=== PATIENT | female | born 1950 | race Caucasian/White ===

== ENCOUNTER 2016-10-28 00:18 | Emergency (ER) | payer OTHER ==
[~2016-10-28] VITALS: Ht 157.5 cm; Wt 63.0 kg
[~2016-10-28 00:18] MED LIST: METO-551 PO
[2016-10-28 00:21] VITALS: TEMP 36.8; Ht 157.5 cm; Wt 63.0 kg
[2016-10-28 00:26] VITALS: O2SAT 99
[2016-10-28] MEDS ORDERED: METOPROLOL TARTRATE 1 MG/ML VIAL IV STA (00:36)
--- NOTE | 2016-10-28 00:41 | EMERGENCY ROOM VISIT NOTE ---
History Report prepared by Gosia: Gisela Ann Under the Supervision of: Dr. Faith Will D.O. First contact with patient: 00:25 Chief Complaint: RESPIRATORY PROBLEMS Stated Complaint: CHEST PRESSURE Nursing Triage Summary: Pt arrives by ALS from home for respiratory difficulty, pt states "where is the air going?". Associated cramping chest pain. Pt reports has been ongoing for months. also back and neck pressure History of Present Illness The patient is a 66 year old female who presents to the Emergency Room with complaints of intermittent shortness of breath beginning today. The patient states that it feels like someone is pulling down on her lungs and she can not get enough air. She complains of chest pressure, chronic but worsening abdominal pain, neck pressure, and back pressure. She reports that she is having difficulty eating and had milk for dinner. The patient states that she has a history of blood clots in her legs but is not on blood thinners anymore and only takes Lopressor for medication. She notes that she stayed home all day today. The patient reports that when she sits up she passes out and this has been happening for months. She denies any injury or increased anxiety. Source of History: patient Onset: today Position: other (global) Quality: other (SOB) Timing: intermittent Modifying Factors (Worsening): other (sitting up) Associated Symptoms: + abdominal pain, + back pain, + chest pain Note: She denies any injury. Review of Systems See HPI for pertinent positives & negatives. A total of 10 systems reviewed and were otherwise negative. 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 (3) Tonsillectomy Family History Cancer MOTHER (Colon ) Diabetes mellitus FATHER Endocrine disorder SISTER (Thyroid) FH: mental illness SISTER Heart disease FATHER MOTHER Stroke Social History Smoking Status: Current Every Day Smoker Alcohol Use: none Drug Use: none Marital Status: Housing Status: lives alone Occupation Status: disabled Current/Historical Medications Scheduled Metoprolol Tartrate (Metoprolol Tartrate), 50 MG PO BID Allergies Coded Allergies: Atropine (Verified Allergy, Severe, castillo, hard time breathing, 10/28/16) Diphenhydramine (Verified Allergy, Severe, "I ALMOST .", 10/28/16) Hyoscyamine (Verified Allergy, Severe, castillo, hard time breathing, 10/28/16) Labetalol (Verified Allergy, Severe, selling,loss of taste,itch, rash, ) Phenobarbital (Verified Allergy, Severe, castillo, hard time breathing, 10/28/16) Prednisone (Verified Allergy, Severe, Edema face,lips and tongue., 10/28/16 ) Meticorten Scopolamine (Verified Allergy, Severe, castillo, hard time breathing, 10/28/16) Dicyclomine (Verified Allergy, Intermediate, GI SYMPTOMS, 10/28/16) Enoxaparin (Verified Allergy, Intermediate, RASH, 10/28/16) Levofloxacin (Verified Allergy, Intermediate, ARM TURNED "FIREY RED" WHEN INFUSED, CLEARED IN A FEW HOURS, 10/28/16) Tramadol (Verified Allergy, Intermediate, blisters all over, 10/28/16) Warfarin (Verified Allergy, Intermediate, rash, 10/28/16) Chlorpromazine (Verified Allergy, Mild, TOLERATING PROLIXIN AT HOME , 10/28/16) Penicillins (Verified Allergy, Mild, 10/28/16) Coumarin (Verified Allergy, Unknown, UNKNOWN, 10/28/16) Naproxen (Verified Allergy, Unknown, Unknown, 10/28/16) Nitrofurantoin (Verified Allergy, Unknown, hallucinating, 10/28/16) Morphine (Verified Adverse Reaction, Severe, SHOCK;TOLERATES DEMEROL, 10/28) ABLE TO TAKE DEMEROL WITHOUT DIFFICULTY Aspirin (Verified Adverse Reaction, Intermediate, BLEEDING, 10/28/16) Codeine (Verified Adverse Reaction, Intermediate, BP DROPS AND PASSES OUT, 10/28/16) Replaces CODEINE PHOSP Ibuprofen (Verified Adverse Reaction, Intermediate, BLEEDING, 10/28/16) Amitriptyline (Verified Adverse Reaction, Mild, Nausea/vomitimg, 10/28/16) Lisinopril (Verified Adverse Reaction, Mild, COUGH, 10/28/16) Physical Exam Vital Signs Date Time Temp Pulse Resp B/P Pulse Ox O2 Delivery O2 Flow Rate FiO2 10/28/16 03:05 90 18 151/94 99 Room Air 10/28/16 02:25 85 18 143/91 99 Room Air 10/28/16 01:24 82 18 164/96 98 Room Air 10/28/16 01:07 90 217/125 10/28/16 00:27 99 Room Air 10/28/16 00:26 99 Room Air 10/28/16 00:25 94 10/28/16 00:21 36.8 94 23 229/138 99 Room Air 10/28/16 00:21 Room Air Physical Exam HEENT: Head - normocephalic and atraumatic Pupils are equal, round, and reactive to light. Extraocular eye muscles are intact, and sclera are anicteric. Nose - moist nasal mucosa without discharge. Mouth - moist buccal mucosa. Oropharynx is nonerythematous and there is no tonsillar exudate or edema noted. Neck: Supple; no JVD, nuchal rigidity, cervical lymphadenopathy. Heart: Regular rate and rhythm. There is a normal S1 and S2 with no murmurs, clicks, or gallops appreciated. Lungs: Clear to auscultation bilaterally with no wheezes, rales, or rhonchi. Abdomen: Soft, completely nontender, nondistended, with good bowel sounds. There are no palpable pulsatile masses or hepatosplenomegaly. There is no guarding, rigidity, or rebound noted. Extremities: No evidence of cyanosis, clubbing, or edema. There are easily palpable peripheral pulses. Skin: warm and dry with good turgor and no rashes. Medical Decision & Procedures Laboratory Results 10/28/16 01:00 Red Blood Count 5.12, Mean Corpuscular Volume 84.4, Mean Corpuscular Hemoglobin 29.9, Mean Corpuscular Hemoglobin Concent 35.4, Mean Platelet Volume 8.9, Neutrophils (%) (Auto) 54.6, Lymphocytes (%) (Auto) 36.3, Monocytes (%) (Auto) 6.6, Eosinophils (%) (Auto) 1.7, Basophils (%) (Auto) 0.6, Neutrophils # (Auto) 5.38, Lymphocytes # (Auto) 3.58, Monocytes # (Auto) 0.65, Eosinophils # (Auto) 0.17, Basophils # (Auto) 0.06 10/28/16 01:00 Test 10/28/16 01:00 White Blood Count 9.86 K/uL (4.8-10.8) Red Blood Count 5.12 M/uL (4.2-5.4) Hemoglobin 15.3 g/dL (12.0-16.0) Hematocrit 43.2 % (37-47) Mean Corpuscular Volume 84.4 fL (80-100) Mean Corpuscular Hemoglobin 29.9 pg (25-34) Mean Corpuscular Hemoglobin Concent 35.4 g/dl (32-36) Platelet Count 445 K/uL (130-400) Mean Platelet Volume 8.9 fL (7.4-10.4) Neutrophils (%) (Auto) 54.6 % Lymphocytes (%) (Auto) 36.3 % Monocytes (%) (Auto) 6.6 % Eosinophils (%) (Auto) 1.7 % Basophils (%) (Auto) 0.6 % Neutrophils # (Auto) 5.38 K/uL (1.4-6.5) Lymphocytes # (Auto) 3.58 K/uL (1.2-3.4) Monocytes # (Auto) 0.65 K/uL (0.11-0.59) Eosinophils # (Auto) 0.17 K/uL (0-0.5) Basophils # (Auto) 0.06 K/uL (0-0.2) RDW Standard Deviation 44.8 fL (36.4-46.3) RDW Coefficient of Variation 14.5 % (11.5-14.5) Immature Granulocyte % (Auto) 0.2 % Immature Granulocyte # (Auto) 0.02 K/uL (0.00-0.02) D-Dimer 460 ug/L FEU (0-500) Anion Gap 10.0 mmol/L (3-11) Est Creatinine Clear Calc Drug Dose 62.8 ml/min Estimated GFR () 91.7 Estimated GFR (Non- 79.1 BUN/Creatinine Ratio 6.7 (10-20) Calcium Level 9.6 mg/dl (8.5-10.1) Total Bilirubin 0.4 mg/dl (0.2-1) Direct Bilirubin < 0.1 mg/dl (0-0.2) Aspartate Amino Transf (AST/SGOT) 11 U/L (15-37) Alanine Aminotransferase (ALT/SGPT) 24 U/L (12-78) Alkaline Phosphatase 112 U/L (45-117) Total Creatine Kinase 90 U/L (26-192) Creatine Kinase MB 0.8 ng/ml (0.5-3.6) Creatine Kinase MB Ratio 0.9 (0-3.0) Troponin I < 0.015 ng/ml (0-0.045) Total Protein 8.5 gm/dl (6.4-8.2) Albumin 4.4 gm/dl (3.4-5.0) Lipase 362 U/L (73-393) Laboratory results per my review. Medications Administered Medications (Trade) Dose Ordered Sig/Thiago Route Start Time Stop Time Status Last Admin Dose Admin Metoprolol Tartrate (Lopressor Iv) 5 mg NOW STAT IV 10/28/16 00:36 10/28/16 00:39 DC 10/28/16 01:07 5 MG Procedure 0036: Lopressor IV 5mg IV. ECG Indication: chest pain Rate (beats per minute): 94 Rhythm: normal sinus Findings: no acute ischemic change, no ectopy ED Course 0025: Past medical records reviewed. The patient was evaluated in room B2. A complete history and physical exam was performed. A twelve-lead EKG was obtained as described above. 0036: Lopressor IV 5mg IV. 0218: I reevaluated the patient. The patient's son is at the bedside. Again, the patient tells me that she is old. She explained that maybe she needs to go to a intermediate because she is not able to do anything that she wants to do. She denies depression. 0314: Upon reevaluation, the patient is doing well. I discussed findings and results with the patient and her son. She verbalized agreement of the treatment plan. The patient was discharged home. Medical Decision This is a 66-year-old female patient who presents emergency Department stating that she can't get a full deep breath. Differential diagnoses include PE, depression, anxiety, pleurisy, pneumonia. LABS: Normal White Count Stable H&H D-Dimer 460 Normal LFT and Lipase Negative Cardiac Enzymes Glucose 100 Normal Renal Function I have seen this patient in the emergency department multiple times over the past 10 years. The patient appears better than I've ever seen her upon presentation to the emergency department. She is currently living with her son. The patient's oxygen saturation was 100%. She appears in no acute restaurant stress. Chest x-ray was unremarkable. I've asked the patient to follow-up with her PCP if the symptoms persist. Impression Primary Impression: Shortness of breath Scribe Attestation The scribe's documentation has been prepared under my direction and personally reviewed by me in its entirety. I confirm that the note above accurately reflects all work, treatment, procedures, and medical decision making performed by me. Departure Information Dispostion Home / Self-Care Referrals Maria Alejandra Gonzalez D.O. (PCP) Forms HOME CARE DOCUMENTATION FORM, IMPORTANT VISIT INFORMATION, WORK / SCHOOL INSTRUCTIONS Patient Instructions My [facility] Additional Instructions Follow up with your PCP if shortness of breath continues Return to the ER if symptoms worsen
[2016-10-28 01:08] LABS: HEMATOCRIT 43.2 % (37-47); MEAN CELL VOLUME 84.4 fL (80-100); MEAN CORPUSCULAR HEMOGLOBIN 29.9 pg (25-34); MEAN CORPUSCULAR HGB CONC 35.4 g/dl (32-36); MEAN PLATELET VOLUME 8.9 fL (7.4-10.4); PLATELET COUNT 445 K/uL (130-400); RED BLOOD COUNT 5.12 M/uL (4.2-5.4); WHITE BLOOD COUNT 9.86 K/uL (4.8-10.8)
[2016-10-28 01:25] LABS: ALT/SGPT 24 U/L (12-78); AST/SGOT 11 U/L (15-37); BLOOD UREA NITROGEN 5 mg/dl (7-18); BUN/CREATININE RATIO 6.7 (10-20); CALCIUM 9.6 mg/dl (8.5-10.1); CARBON DIOXIDE 23 mmol/L (21-32); CHLORIDE 106 mmol/L (98-107); CREATININE 0.79 mg/dl (0.60-1.20); GLUCOSE 100 mg/dl (70-99); POTASSIUM 3.8 mmol/L (3.5-5.1); SODIUM 139 mmol/L (136-145)
[2016-10-28 01:30] LABS: ALKALINE PHOSPHATASE 112 U/L (45-117); CKMB/CK RATIO 0.9 (0-3.0)
[2016-10-28 01:39] LABS: BASO % 0.6 %; BASO ABS # 0.06 K/uL (0-0.2); COMPLETE YES; EOS % 1.7 %; IG% 0.2 %; LYMPH % 36.3 %; LYMPH ABS # 3.58 K/uL (1.2-3.4); MONO % 6.6 %; NEUT % 54.6 %
[2016-10-28 03:05] VITALS: BP 151/94; PULSE 90; O2SAT 99
--- NOTE | 2016-10-28 08:30 | DIAGNOSTIC IMAGING REPORT ---
CHEST 2 VIEWS ROUTINE CLINICAL HISTORY: Shortness of breath. COMPARISON STUDY: Chest radiograph February 24, 2016. FINDINGS: 2 IVC filters are noted. Lung volumes are normal. No pneumothorax or pleural effusion is present. There is no evidence of pulmonary edema. Linear right lower lung opacity is suggestive of atelectasis. There is no consolidation. Cardiomediastinal silhouette is normal. IMPRESSION: No acute cardiopulmonary findings. Electronically signed by: Papa Nur M.D. 10/28/2016 8:29 AM Dictated Date/Time: 10/28/2016 8:28 AM
== END 2016-10-28 03:27 | disposition home or self-care (01) ==
LOC: EDBD 00:18 → C.EDB 00:19
DX: R06.02 Shortness of breath (principal); I10 Essential (primary) hypertension; F31.9 Bipolar disorder, unspecified; F41.9 Anxiety disorder, unspecified; F20.9 Schizophrenia, unspecified; K58.9 Irritable bowel syndrome, unspecified; F17.200 Nicotine dependence, unspecified, uncomplicated; Z86.718 Personal history of other venous thrombosis and embolism

== ENCOUNTER 2016-11-06 17:39 | Emergency (ER) | payer OTHER ==
[~2016-11-06] VITALS: Ht 157.5 cm; Wt 60.0 kg
[2016-11-06 17:51] VITALS: TEMP 36.9
[2016-11-06] MEDS ORDERED: LORAZEPAM 1 MG TAB SL STA (18:22)
[2016-11-06 19:01] LABS: BASO % 0.5 %; BASO ABS # 0.05 K/uL (0-0.2); COMPLETE YES; EOS % 1.2 %; IG% 0.1 %; LYMPH % 23.3 %; LYMPH ABS # 2.25 K/uL (1.2-3.4); MEAN CELL VOLUME 87.5 fL (80-100); MEAN CORPUSCULAR HEMOGLOBIN 30.6 pg (25-34); MEAN PLATELET VOLUME 9.5 fL (7.4-10.4); MONO % 8.2 %; NEUT % 66.7 %; PLATELET COUNT 425 K/uL (130-400); RED BLOOD COUNT 5.03 M/uL (4.2-5.4); WHITE BLOOD COUNT 9.64 K/uL (4.8-10.8)
[2016-11-06 19:13] VITALS: Ht 157.5 cm; Wt 60.0 kg
--- NOTE | 2016-11-06 19:46 | EMERGENCY ROOM VISIT NOTE ---
History First contact with patient: 18:12 Chief Complaint: MENTAL HEALTH EVALUATION Stated Complaint: CANT BREATHE History of Present Illness The patient is a 66 year old female who presents to the Emergency Room with complaints of anxiety. The patient reports she has been feeling short of breath for quite some time over months. She reports that the shortness of breath is hours there. She denies any chest pain. The patient reports she is stop taking all of her medications and has not taken medications in months. She was sent in by her friend who is concerned that the patient's anxiety was out of control. Upon arrival to emergency department the patient is readily cooperative. Review of Systems See HPI for pertinent positives & negatives. A total of 10 systems reviewed and were otherwise negative. Past Medical/Surgical History Medical Problems: (1) Alcohol abuse (2) Anxiety (3) Benign hypertension (4) Bipolar disorder (5) Chronic pelvic pain of female (6) Deep venous thrombosis (7) Drug abuse (8) IBS (9) IVC filter (10) Posttraumatic stress disorder (11) Schizoaffective disorder (12) Suicide attempt (13) Tobacco abuse (14) UGI bleed Surgical Problems: (1) Cystoscopy (2) h/o inferior vena cava filter placement (3) Tonsillectomy Family History Cancer MOTHER (Colon ) Diabetes mellitus FATHER Endocrine disorder SISTER (Thyroid) FH: mental illness SISTER Heart disease FATHER MOTHER Stroke Social History Smoking Status: Current Every Day Smoker Alcohol Use: none Drug Use: none Marital Status: Housing Status: lives alone Occupation Status: disabled Current/Historical Medications Scheduled Metoprolol Tartrate (Metoprolol Tartrate), 50 MG PO BID Allergies Coded Allergies: Atropine (Verified Allergy, Severe, castillo, hard time breathing, 11/06/16) Diphenhydramine (Verified Allergy, Severe, "I ALMOST .", 11/06/16) Hyoscyamine (Verified Allergy, Severe, castillo, hard time breathing, 11/06/16) Labetalol (Verified Allergy, Severe, selling,loss of taste,itch, rash, 11/06) Phenobarbital (Verified Allergy, Severe, castillo, hard time breathing, 11/06/16) Prednisone (Verified Allergy, Severe, Edema face,lips and tongue., 11/06/16) Meticorten Scopolamine (Verified Allergy, Severe, castillo, hard time breathing, 11/06/16) Dicyclomine (Verified Allergy, Intermediate, GI SYMPTOMS, 11/06/16) Enoxaparin (Verified Allergy, Intermediate, RASH, 11/06/16) Levofloxacin (Verified Allergy, Intermediate, ARM TURNED "FIREY RED" WHEN INFUSED, CLEARED IN A FEW HOURS, 11/06/16) Tramadol (Verified Allergy, Intermediate, blisters all over, 11/06/16) Warfarin (Verified Allergy, Intermediate, rash, 11/06/16) Chlorpromazine (Verified Allergy, Mild, TOLERATING PROLIXIN AT HOME , 11/06/16) Penicillins (Verified Allergy, Mild, 11/06/16) Coumarin (Verified Allergy, Unknown, UNKNOWN, 11/06/16) Naproxen (Verified Allergy, Unknown, Unknown, 11/06/16) Nitrofurantoin (Verified Allergy, Unknown, hallucinating, 11/06/16) Morphine (Verified Adverse Reaction, Severe, SHOCK;TOLERATES DEMEROL, ) ABLE TO TAKE DEMEROL WITHOUT DIFFICULTY Aspirin (Verified Adverse Reaction, Intermediate, BLEEDING, 11/06/16) Codeine (Verified Adverse Reaction, Intermediate, BP DROPS AND PASSES OUT, 11/06/16) Replaces CODEINE PHOSP Ibuprofen (Verified Adverse Reaction, Intermediate, BLEEDING, 11/06/16) Amitriptyline (Verified Adverse Reaction, Mild, Nausea/vomitimg, 11/06/16) Lisinopril (Verified Adverse Reaction, Mild, COUGH, 11/06/16) Physical Exam Vital Signs Date Time Temp Pulse Resp B/P Pulse Ox O2 Delivery O2 Flow Rate FiO2 11/06/16 20:24 82 16 176/93 97 Room Air 11/06/16 19:16 Room Air 11/06/16 19:13 82 16 172/97 96 Room Air 11/06/16 19:12 Room Air 11/06/16 18:07 98 11/06/16 17:51 36.9 103 20 181/91 98 Room Air Physical Exam GENERAL: Patient is a cacechtic female HEAD: Normocephalic atraumatic EYES: Ocular movements intact pupils equal and react to light OROPHARYNX mucous membranes are moist no exudates present no erythema or edema present NECK: Supple no nuchal rigidity CHEST: Good equal expansion LUNGS: Clear and equal to auscultation CARDIAC: Normal S1 and S2 ABDOMEN: Soft nontender no guarding BACK: No CVA tenderness EXTREMITIES: No pain upon palpation normal muscle strength in all groups no clubbing cyanosis or edema NEURO: Patient is following commands is answering questions appropriately. Alert and oriented x3 Cranial Nerves 2-12 grossly intact Medical Decision & Procedures Laboratory Results 11/06/16 18:52 Red Blood Count 5.03, Mean Corpuscular Volume 87.5, Mean Corpuscular Hemoglobin 30.6, Mean Corpuscular Hemoglobin Concent 35.0, Mean Platelet Volume 9.5, Neutrophils (%) (Auto) 66.7, Lymphocytes (%) (Auto) 23.3, Monocytes (%) (Auto) 8.2, Eosinophils (%) (Auto) 1.2, Basophils (%) (Auto) 0.5, Neutrophils # (Auto) 6.42, Lymphocytes # (Auto) 2.25, Monocytes # (Auto) 0.79, Eosinophils # (Auto) 0.12, Basophils # (Auto) 0.05 11/06/16 20:00 Test 11/06/16 18:52 11/06/16 19:26 11/06/16 19:38 11/06/16 19:43 White Blood Count 9.64 K/uL (4.8-10.8) Red Blood Count 5.03 M/uL (4.2-5.4) Hemoglobin 15.4 g/dL (12.0-16.0) Hematocrit 44.0 % (37-47) Mean Corpuscular Volume 87.5 fL (80-100) Mean Corpuscular Hemoglobin 30.6 pg (25-34) Mean Corpuscular Hemoglobin Concent 35.0 g/dl (32-36) Platelet Count 425 K/uL (130-400) Mean Platelet Volume 9.5 fL (7.4-10.4) Neutrophils (%) (Auto) 66.7 % Lymphocytes (%) (Auto) 23.3 % Monocytes (%) (Auto) 8.2 % Eosinophils (%) (Auto) 1.2 % Basophils (%) (Auto) 0.5 % Neutrophils # (Auto) 6.42 K/uL (1.4-6.5) Lymphocytes # (Auto) 2.25 K/uL (1.2-3.4) Monocytes # (Auto) 0.79 K/uL (0.11-0.59) Eosinophils # (Auto) 0.12 K/uL (0-0.5) Basophils # (Auto) 0.05 K/uL (0-0.2) RDW Standard Deviation 47.8 fL (36.4-46.3) RDW Coefficient of Variation 14.8 % (11.5-14.5) Immature Granulocyte % (Auto) 0.1 % Immature Granulocyte # (Auto) 0.01 K/uL (0.00-0.02) Ethyl Alcohol mg/dL < 3.0 mg/dl (0-3) Bedside Glucose 100 mg/dl (70-90) Creatine Kinase MB Ratio (0-3.0) Urine Color YELLOW Urine Appearance CLEAR (CLEAR) Urine pH 7.0 (4.5-7.5) Urine Specific [place] 1.005 (1.000-1.030) Urine Protein NEG (NEG) Urine Glucose (UA) NEG (NEG) Urine Ketones NEG (NEG) Urine Occult Blood NEG (NEG) Urine Nitrite NEG (NEG) Urine Bilirubin NEG (NEG) Urine Urobilinogen NEG (NEG) Urine Leukocyte Esterase NEG (NEG) Urine Opiates Screen NEG (NEG) Urine Methadone, Qualitative NEG (NEG) Urine Barbiturates NEG (NEG) Urine Phencyclidine (PCP) Level NEG (NEG) Ur Amphetamine/Methamphetamine NEG (NEG) MDMA (Ecstasy) Screen NEG (NEG) Urine Benzodiazepines Screen NEG (NEG) Urine Cocaine Metabolite NEG (NEG) Urine Marijuana (THC) NEG (NEG) Test 11/06/16 20:00 Anion Gap 10.0 mmol/L (3-11) Est Creatinine Clear Calc Drug Dose 53.5 ml/min Estimated GFR () 85.1 Estimated GFR (Non- 73.4 BUN/Creatinine Ratio 7.6 (10-20) Calcium Level 9.3 mg/dl (8.5-10.1) Direct Bilirubin 0.1 mg/dl (0-0.2) Aspartate Amino Transf (AST/SGOT) 12 U/L (15-37) Alanine Aminotransferase (ALT/SGPT) 35 U/L (12-78) Albumin 4.1 gm/dl (3.4-5.0) Medications Administered Medications (Trade) Dose Ordered Sig/Thiago Route Start Time Stop Time Status Last Admin Dose Admin Lorazepam (Ativan Tab) 1 mg NOW STAT SL 11/06/16 18:22 11/06/16 18:24 DC 11/06/16 19:15 1 MG ECG Indication: SOB/dyspnea Rate (beats per minute): 83 Rhythm: sinus rhythm Findings: no acute ischemic change, no ectopy Medical Decision This is a 66-year-old female who presents emergency department complaining of shortness of breath. The patient is not tachycardic here and denies any chest pain. My suspicion for PE is very low. Based on these findings. The patient does have a normal CBC normal renal profile normal liver profile. She was given Ativan for her shortness of breath the emergency department. Repeat examination revealed improvement patient's symptoms I do believe that the patient is medically clear. She was discussed with the liaison for 3 S. as well as case management. The patient alcohol level is normal. The patient was signed out to Dr. Thorpe at change shift pending mental health evaluation. Impression Primary Impression: Acute anxiety Departure Information Dispostion Still a Patient Referrals Maria Alejandra Gonzalez D.O. (PCP) Patient Instructions My [facility]
--- NOTE | 2016-11-06 19:49 | DIAGNOSTIC IMAGING REPORT ---
CHEST ONE VIEW PORTABLE CLINICAL HISTORY: Pt c/o SOB dyspnea COMPARISON STUDY: No previous studies for comparison. FINDINGS: The bones soft tissues and hemidiaphragms are normal. The cardiomediastinal silhouette is normal. The lungs are clear. The pulmonary vasculature is normal. Mild emphysematous change IMPRESSION: Mild emphysematous change. No acute process. Electronically signed by: Anuel Martinez M.D. 11/06/2016 7:48 PM Dictated Date/Time: 11/06/2016 7:47 PM
[2016-11-06 20:05] LABS: URINE APPEARANCE CLEAR (CLEAR); URINE BILIRUBIN NEG (NEG); URINE COLOR YELLOW; URINE NITRITE NEG (NEG); URINE SPECIFIC GRAVITY 1.005 (1.000-1.030); UROBILINOGEN NEG (NEG)
[2016-11-06 20:11] LABS: MANUAL MICROSCOPIC REQUIRED? NO; REVIEW REQ? NO
[2016-11-06 20:24] LABS: BENZODIAZEPINE, URINE NEG (NEG); COCAINE,URINE NEG (NEG); PHENCYCLIDINE, URINE NEG (NEG)
[2016-11-06 20:40] LABS: ALT/SGPT 35 U/L (12-78); AST/SGOT 12 U/L (15-37); BLOOD UREA NITROGEN 6 mg/dl (7-18); BUN/CREATININE RATIO 7.6 (10-20); CALCIUM 9.3 mg/dl (8.5-10.1); CARBON DIOXIDE 22 mmol/L (21-32); CHLORIDE 107 mmol/L (98-107); CREATININE 0.84 mg/dl (0.60-1.20); GLUCOSE 94 mg/dl (70-99); POTASSIUM 3.9 mmol/L (3.5-5.1); SODIUM 139 mmol/L (136-145)
[2016-11-06] MEDS ORDERED: LISINOPRIL/HCTZ 20/25MG TAB PO STA (20:43)
[2016-11-06 20:50] LABS: ALKALINE PHOSPHATASE 110 U/L (45-117); CKMB/CK RATIO 0.9 (0-3.0); THYROID STIMULATING HORMONE 0.745 uIu/ml (0.300-4.500)
[2016-11-06] MEDS ORDERED: RISP1TAB18 PO (23:04)
[2016-11-06] MEDS ORDERED: SODIUM CHLORIDE 0.9% 500ML 500 ML IV STA (23:09)
[2016-11-07 00:07] VITALS: BP 110/74; PULSE 86; O2SAT 95
--- NOTE | 2016-11-07 01:21 | EMERGENCY ROOM VISIT NOTE ---
ED Visit Note First contact with patient: 22:24 I received this patient signout the change of shift from Dr. Gonsales, pending mental health evaluation. The patient was felt stable for discharge after 3 S. evaluation. HALI Mills has recommended a short prescription for Risperdal. Patient was given 10, 1 mg tablets to be taken one each evening. Patient will have follow-up with her primary care physician as well as her therapist. The patient was running hypertensive throughout most of her stay in the ER. She was given lisinopril/HCTZ. The patient was noted to become hypotensive, likely secondary to the metoprolol she had taken prior to arrival and the blood pressure medication given in the ER. She was given 500 mL of IV normal saline solution. Patient tolerated a food tray and oral fluids. She was discharged in care of her son after her blood pressure improved. She will return to the ER for worsening of symptoms or any medical concerns. Please refer to Dr. Gonsales's notes for further details of the history, physical and visit.
== END 2016-11-07 00:26 | disposition home or self-care (01) ==
LOC: C.EDB 17:40 → C.EDA 11-07 00:26
DX: F41.9 Anxiety disorder, unspecified (principal); R06.00 Dyspnea, unspecified; F25.0 Schizoaffective disorder, bipolar type; I10 Essential (primary) hypertension; F17.210 Nicotine dependence, cigarettes, uncomplicated; Z79.899 Other long term (current) drug therapy

== ENCOUNTER 2016-11-07 18:53 | Emergency (ER) | payer OTHER ==
[~2016-11-07 18:53] MED LIST changes: -METO-551 PO; +RISP1TAB18 PO
[2016-11-07 19:17] VITALS: TEMP 36.7; Ht 157.5 cm
[2016-11-07 21:12] VITALS: O2SAT 96
[2016-11-07] MEDS ORDERED: MECLIZINE HCL 25 MG TAB PO STA (21:42)
[2016-11-07] MEDS ORDERED: SODIUM CHLORIDE 0.9% 1000ML 2,000 ML IV STA (21:42)
--- NOTE | 2016-11-07 22:04 | DIAGNOSTIC IMAGING REPORT ---
CT OF THE HEAD WITHOUT CONTRAST CLINICAL HISTORY: Weakness. COMPARISON STUDY: Head CT April 18, 2015. CT DOSE: 537.48 mGy.cm TECHNIQUE: Helical axial images of the head were obtained without IV contrast. Automated exposure control was utilized for the study. FINDINGS: No acute intracranial hemorrhage, midline shift or mass effect is present. Ventricular system is stable. There is a cavum septum pellucidum. Basilar cisterns are patent. There are no extra-axial collections. A hypodensity within the left basal ganglia is unchanged and could reflect a prominent perivascular space or old lacunar infarct. There are no findings to suggest acute dural sinus thrombosis or acute territorial infarct. There are no significant calvarial abnormalities. Visualized portions of the sinuses and mastoid air cells are clear. IMPRESSION: No acute intracranial findings. Electronically signed by: Papa Nur M.D. 11/07/2016 10:02 PM Dictated Date/Time: 11/07/2016 10:00 PM
[2016-11-07 22:06] LABS: BASO % 0.6 %; BASO ABS # 0.05 K/uL (0-0.2); COMPLETE YES; EOS % 2.2 %; HEMATOCRIT 41.9 % (37-47); IG% 0.1 %; LYMPH % 39.5 %; LYMPH ABS # 3.48 K/uL (1.2-3.4); MEAN CORPUSCULAR HEMOGLOBIN 29.4 pg (25-34); MEAN CORPUSCULAR HGB CONC 34.1 g/dl (32-36); MEAN PLATELET VOLUME 9.4 fL (7.4-10.4); MONO % 5.9 %; NEUT % 51.7 %; PLATELET COUNT 415 K/uL (130-400); RED BLOOD COUNT 4.87 M/uL (4.2-5.4)
[2016-11-07 22:10] LABS: ALT/SGPT 29 U/L (12-78); BLOOD UREA NITROGEN 9 mg/dl (7-18); BUN/CREATININE RATIO 9.5 (10-20); CALCIUM 9.5 mg/dl (8.5-10.1); CARBON DIOXIDE 24 mmol/L (21-32); CHLORIDE 106 mmol/L (98-107); CREATININE 0.91 mg/dl (0.60-1.20); GLUCOSE 117 mg/dl (70-99); POTASSIUM 3.6 mmol/L (3.5-5.1); SODIUM 139 mmol/L (136-145)
[2016-11-07 22:15] LABS: ALKALINE PHOSPHATASE 108 U/L (45-117); AST/SGOT 12 U/L (15-37)
--- NOTE | 2016-11-07 22:18 | DIAGNOSTIC IMAGING REPORT ---
CHEST ONE VIEW PORTABLE CLINICAL HISTORY: Weakness. COMPARISON STUDY: Chest radiograph November 06, 2016. FINDINGS: An IVC filter is incidentally noted. Lung volumes are normal. There is no consolidation to suggest pneumonia. Cardiac size is normal. Mediastinal contours are normal. There is no evidence of pulmonary edema. IMPRESSION: No acute cardiopulmonary findings. Electronically signed by: Papa Nur M.D. 11/07/2016 10:16 PM Dictated Date/Time: 11/07/2016 10:16 PM
[2016-11-07 23:59] VITALS: BP 118/70; PULSE 78; O2SAT 97
--- NOTE | 2016-11-08 01:29 | EMERGENCY ROOM VISIT NOTE ---
History Report prepared by Gosia: Mona Escalante Under the Supervision of: Vamshi AnnO. First contact with patient: 20:47 Chief Complaint: DIZZY Stated Complaint: ANXIETY, ABDOMINAL PAIN Nursing Triage Summary: patient states she feels dizzy and is off balance and feels "weird". also states it feels like she cant catch her breath sometimes. states she was here yesteday. History of Present Illness The patient is a 66 year old female who presents to the Emergency Room with complaints of worsening dizziness beginning [employer]. The patient states that she has been experiencing dizziness for the past 6-7 months but that it has been much worse lately. Sitting up exacerbates her symptoms, and laying on her left side also exacerbates her dizziness. She reports ringing in her right ear. The patient is also experiencing shortness of breath that is worse with lying flat. She state that evening just walking around her house causes her to feel lightheaded and pass out. She notes that she becomes very short of breath and lay down. Following this she will fall sleep/pass out. She notes chest pain that she describes as "laura" and "spasming." This pain is worse when she eats or swallows. Her chest pain is not worse with exertion. Her chest pain has been there for several months as well is her shortness of breath. She rates her current pain as a 2/10 in severity. She states that she has been experiencing this chest pain for months. The patient reports feeling generally weak all over. She denies urinary symptoms and any personal history of blood clots. The patient has a history of anxiety. She denies any HI or SI. She was seen in the ED on 10/28/16 and had a negative d-dimer and her work-up was otherwise unremarkable. She was seen again in the ED on 11/06/16 and discharged home. She takes a daily baby aspirin. 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 Review of Systems See HPI for pertinent positives & negatives. A total of 10 systems reviewed and were otherwise negative. 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 (3) Tonsillectomy Family History Cancer MOTHER (Colon ) Diabetes mellitus FATHER Endocrine disorder SISTER (Thyroid) FH: mental illness SISTER Heart disease FATHER MOTHER Stroke Social History Smoking Status: Current Every Day Smoker Alcohol Use: none Drug Use: none Marital Status: Housing Status: lives alone Occupation Status: disabled Current/Historical Medications Scheduled Metoprolol Tartrate (Metoprolol Tartrate), 50 MG PO BID Risperidone (Risperdal), 1 TAB PO HS Allergies Coded Allergies: Atropine (Verified Allergy, Severe, castillo, hard time breathing, 11/07/16) Diphenhydramine (Verified Allergy, Severe, "I ALMOST .", 11/07/16) Hyoscyamine (Verified Allergy, Severe, castillo, hard time breathing, 11/07/16) Labetalol (Verified Allergy, Severe, selling,loss of taste,itch, rash, 11/07) Phenobarbital (Verified Allergy, Severe, castillo, hard time breathing, 11/07/16) Prednisone (Verified Allergy, Severe, Edema face,lips and tongue., 11/07/16) Meticorten Scopolamine (Verified Allergy, Severe, castillo, hard time breathing, 11/07/16) Dicyclomine (Verified Allergy, Intermediate, GI SYMPTOMS, 11/07/16) Enoxaparin (Verified Allergy, Intermediate, RASH, 11/07/16) Levofloxacin (Verified Allergy, Intermediate, ARM TURNED "FIREY RED" WHEN INFUSED, CLEARED IN A FEW HOURS, 11/07/16) Tramadol (Verified Allergy, Intermediate, blisters all over, 11/07/16) Warfarin (Verified Allergy, Intermediate, rash, 11/07/16) Chlorpromazine (Verified Allergy, Mild, TOLERATING PROLIXIN AT HOME , 11/07/16) Penicillins (Verified Allergy, Mild, 11/07/16) Coumarin (Verified Allergy, Unknown, UNKNOWN, 11/07/16) Naproxen (Verified Allergy, Unknown, Unknown, 11/07/16) Nitrofurantoin (Verified Allergy, Unknown, hallucinating, 11/07/16) Morphine (Verified Adverse Reaction, Severe, SHOCK;TOLERATES DEMEROL, ) ABLE TO TAKE DEMEROL WITHOUT DIFFICULTY Aspirin (Verified Adverse Reaction, Intermediate, BLEEDING, 11/07/16) Codeine (Verified Adverse Reaction, Intermediate, BP DROPS AND PASSES OUT, 11/07/16) Replaces CODEINE PHOSP Ibuprofen (Verified Adverse Reaction, Intermediate, BLEEDING, 11/07/16) Amitriptyline (Verified Adverse Reaction, Mild, Nausea/vomitimg, 11/07/16) Lisinopril (Verified Adverse Reaction, Mild, COUGH, 11/07/16) Physical Exam Vital Signs Date Time Temp Pulse Resp B/P Pulse Ox O2 Delivery O2 Flow Rate FiO2 11/07/16 23:59 78 18 118/70 97 11/07/16 22:00 91 20 125/85 98 Room Air 11/07/16 21:26 110 20 91/64 98 Room Air 11/07/16 21:25 100 96/57 97 115/63 110 91/64 11/07/16 21:12 96 Room Air 11/07/16 21:12 96 Room Air 11/07/16 20:35 87 20 118/70 96 Room Air 11/07/16 20:30 111 11/07/16 19:17 36.7 97 20 139/73 97 Room Air Physical Exam GENERAL: alert, sitting up in bed, disheveled, chronically ill appearing, malnourished, no distress, non-toxic EYE EXAM: normal conjunctiva, PERRL and EOM's intact OROPHARYNX: no exudate, no erythema, lips, buccal mucosa, and tongue normal and mucous membranes are moist NECK: supple, no nuchal rigidity, no adenopathy, non-tender LUNGS: Clear to auscultation. Normal chest wall mechanics HEART: no murmurs, S1 normal and S2 normal ABDOMEN: abdomen soft, non-tender, normo-active bowel sounds, no masses, no rebound or guarding. BACK: Back is symmetrical on inspection and there is no deformity, no midline tenderness, no CVA tenderness. SKIN: no rashes and no bruising UPPER EXTREMITIES: upper extremities are grossly normal. LOWER EXTREMITIES: No pitting edema. NEURO EXAM: Normal sensorium, cranial nerves II-XII intact, normal speech, no weakness of arms, no weakness of legs. No drift. Finger to nose intact. Gross sensation intact. Medical Decision & Procedures ER Provider Diagnostic Interpretation: Radiology results as stated below per my review and the radiologist's interpretation: CT OF THE HEAD WITHOUT CONTRAST CLINICAL HISTORY: Weakness. COMPARISON STUDY: Head CT April 18, 2015. CT DOSE: 537.48 mGy.cm TECHNIQUE: Helical axial images of the head were obtained without IV contrast. Automated exposure control was utilized for the study. FINDINGS: No acute intracranial hemorrhage, midline shift or mass effect is present. Ventricular system is stable. There is a cavum septum pellucidum. Basilar cisterns are patent. There are no extra-axial collections. A hypodensity within the left basal ganglia is unchanged and could reflect a prominent perivascular space or old lacunar infarct. There are no findings to suggest acute dural sinus thrombosis or acute territorial infarct. There are no significant calvarial abnormalities. Visualized portions of the sinuses and mastoid air cells are clear. IMPRESSION: No acute intracranial findings. Electronically signed by: Papa Nur M.D. 11/07/2016 10:02 PM Dictated Date/Time: 11/07/2016 10:00 PM CHEST ONE VIEW PORTABLE CLINICAL HISTORY: Weakness. COMPARISON STUDY: Chest radiograph November 06, 2016. FINDINGS: An IVC filter is incidentally noted. Lung volumes are normal. There is no consolidation to suggest pneumonia. Cardiac size is normal. Mediastinal contours are normal. There is no evidence of pulmonary edema. IMPRESSION: No acute cardiopulmonary findings. Electronically signed by: Papa Nur M.D. 11/07/2016 10:16 PM Dictated Date/Time: 11/07/2016 10:16 PM Laboratory Results 11/07/16 21:43 Red Blood Count 4.87, Mean Corpuscular Volume 86.0, Mean Corpuscular Hemoglobin 29.4, Mean Corpuscular Hemoglobin Concent 34.1, Mean Platelet Volume 9.4, Neutrophils (%) (Auto) 51.7, Lymphocytes (%) (Auto) 39.5, Monocytes (%) (Auto) 5.9, Eosinophils (%) (Auto) 2.2, Basophils (%) (Auto) 0.6, Neutrophils # (Auto) 4.55, Lymphocytes # (Auto) 3.48, Monocytes # (Auto) 0.52, Eosinophils # (Auto) 0.19, Basophils # (Auto) 0.05 11/07/16 21:43 Test 11/07/16 21:23 11/07/16 21:43 Bedside Glucose 125 mg/dl (70-90) White Blood Count 8.80 K/uL (4.8-10.8) Red Blood Count 4.87 M/uL (4.2-5.4) Hemoglobin 14.3 g/dL (12.0-16.0) Hematocrit 41.9 % (37-47) Mean Corpuscular Volume 86.0 fL (80-100) Mean Corpuscular Hemoglobin 29.4 pg (25-34) Mean Corpuscular Hemoglobin Concent 34.1 g/dl (32-36) Platelet Count 415 K/uL (130-400) Mean Platelet Volume 9.4 fL (7.4-10.4) Neutrophils (%) (Auto) 51.7 % Lymphocytes (%) (Auto) 39.5 % Monocytes (%) (Auto) 5.9 % Eosinophils (%) (Auto) 2.2 % Basophils (%) (Auto) 0.6 % Neutrophils # (Auto) 4.55 K/uL (1.4-6.5) Lymphocytes # (Auto) 3.48 K/uL (1.2-3.4) Monocytes # (Auto) 0.52 K/uL (0.11-0.59) Eosinophils # (Auto) 0.19 K/uL (0-0.5) Basophils # (Auto) 0.05 K/uL (0-0.2) RDW Standard Deviation 47.5 fL (36.4-46.3) RDW Coefficient of Variation 14.9 % (11.5-14.5) Immature Granulocyte % (Auto) 0.1 % Immature Granulocyte # (Auto) 0.01 K/uL (0.00-0.02) D-Dimer 400 ug/L FEU (0-500) Anion Gap 9.0 mmol/L (3-11) Estimated GFR () 77.3 Estimated GFR (Non- 66.7 BUN/Creatinine Ratio 9.5 (10-20) Calcium Level 9.5 mg/dl (8.5-10.1) Total Bilirubin 0.4 mg/dl (0.2-1) Direct Bilirubin < 0.1 mg/dl (0-0.2) Aspartate Amino Transf (AST/SGOT) 12 U/L (15-37) Alanine Aminotransferase (ALT/SGPT) 29 U/L (12-78) Alkaline Phosphatase 108 U/L (45-117) Troponin I < 0.015 ng/ml (0-0.045) Total Protein 8.0 gm/dl (6.4-8.2) Albumin 4.1 gm/dl (3.4-5.0) Laboratory results per my review. Medications Administered Medications (Trade) Dose Ordered Sig/Thiago Route Start Time Stop Time Status Last Admin Dose Admin Sodium Chloride (Nss 1000ml) 2,000 ml @ 999 mls/hr Q2H1M STAT IV 11/07/16 21:42 11/07/16 23:42 DC 11/07/16 22:00 999 MLS/HR Meclizine HCl (Antivert Tab) 25 mg NOW STAT PO 11/07/16 21:42 11/07/16 21:44 DC 11/07/16 22:00 25 MG ECG Indication: SOB/dyspnea Rate (beats per minute): 102 Rhythm: sinus tachycardia Findings: left axis deviation, no ectopy ED Course ED COURSE: Vital signs were reviewed and showed normal vitals. The patients medical record was reviewed The above diagnostic studies were performed and reviewed. ED treatments and interventions as stated above. 2046: The patient was evaluated in room A12B. A complete history and physical examination was performed. 2141: Meclizine HCl 25 mg PO, NSS 2000 ml @ 999 mls/hr IV 2255: I reassessed the patient and she is doing well. She will have an ambulatory trial. 2322: The patient was in the bathroom at this time. 2346: Upon reevaluation, the patient is feeling better. She did well with her ambulatory trial. She is currently ambulating outside the room and requesting discharge. I discussed my findings with the patient and she understands and agrees with the treatment plan. Based on the patients age, coexisting illnesses, exam and lab findings the decision to treat as an outpatient was made. The patient remained stable while under my care. The patient appeared well at the time of discharge. Medical Decision Differential diagnoses includes but is not limited to pneumonia, bronchitis, COPD/Asthma exacerbation, pneumothorax, pulmonary embolism, congestive heart failure, acute coronary syndrome. Patient is a 66-year-old female who presents the ER with multiple complaints. She was seen here yesterday and evaluated by psychiatry and emergency Department. Following a complete evaluation she was discharged. She presents today for shortness of breath which has been worsening over the past year. She also admits to chest pain which has been present over the same time. The chest pain is only present after eating. Lastly she minutes to diffuse muscle spasms which has been worsening. She denies any homicidal or suicidal ideations. She is completely neurologically intact on exam. She is able to ambulate without difficulty. Vitals are stable. CT of the head was negative. EKG was unremarkable. Troponin was negative with chest pain that has been present for greater than 8 hours. Her d-dimer was negative as well. CBC along with BMP, LFTs and bilirubin was unremarkable. Chest x-ray was unremarkable. Patient was given a bolus normal saline. During her exam she was ambulating in the hallway and requesting to be discharged. Her blood work resulted in showed an unremarkable workup. I felt this was reasonable at this time. Discussed with Pt concerning signs and symptoms to watch out for. Pt was instructed to follow up with their PCP and discussed with the patient their option to return to the ED at anytime for persistent or worsening symptoms. The appropriate anticipatory guidance and out-patient management, including indications for return to the emergency department, were explained at length to the patient and understood. Impression Primary Impression: Shortness of breath Additional Impression: Dizziness Scribe Attestation The scribe's documentation has been prepared under my direction and personally reviewed by me in its entirety. I confirm that the note above accurately reflects all work, treatment, procedures, and medical decision making performed by me. Departure Information Dispostion Home / Self-Care Referrals Maria Alejandra Gonzalez D.O. (PCP) Forms HOME CARE DOCUMENTATION FORM, IMPORTANT VISIT INFORMATION Patient Instructions ED Dizziness [facility], ED Dyspnea Shortness of Breath, My [facility] Additional Instructions Please follow up with your primary care doctor with in the next 24 hours. Any worsening of your symptoms, please return to the ED immediately. This includes any new or worsening chest pain, shortness of breath, passing out, weakness or numbness in arms or legs, or any other concerning signs or symptoms from your standpoint. Please take your medications as prescribed. Please try to remain as hydrated as possible over the next 24-48 hours. Problem Qualifiers
== END 2016-11-08 | disposition home or self-care (01) ==
LOC: C.EDB 18:57 → C.EDA 11-08
DX: R42 Dizziness and giddiness (principal); R06.02 Shortness of breath; R00.0 Tachycardia, unspecified; I10 Essential (primary) hypertension; F31.9 Bipolar disorder, unspecified; F41.9 Anxiety disorder, unspecified; G89.29 Other chronic pain; F20.9 Schizophrenia, unspecified; F17.200 Nicotine dependence, unspecified, uncomplicated; Z86.718 Personal history of other venous thrombosis and embolism; Z98.890 Other specified postprocedural states; Z88.0 Allergy status to penicillin; Z88.5 Allergy status to narcotic agent; Z88.6 Allergy status to analgesic agent; Z88.8 Allergy status to other drugs, medicaments and biological substances; Z80.9 Family history of malignant neoplasm, unspecified; Z83.3 Family history of diabetes mellitus; Z82.49 Family history of ischemic heart disease and other diseases of the circulatory system; Z82.3 Family history of stroke; Z81.8 Family history of other mental and behavioral disorders

== ENCOUNTER 2016-11-12 17:48 | Emergency (ER) | payer OTHER ==
[~2016-11-12] VITALS: Ht 157.5 cm; Wt 57.8 kg
[2016-11-12 18:00] VITALS: TEMP 37; Ht 157.5 cm; Wt 57.8 kg
[2016-11-12] MEDS ORDERED: SODIUM CHLORIDE 0.9% 1000ML 1,000 ML IV STA (18:35)
--- NOTE | 2016-11-12 18:35 | EMERGENCY ROOM VISIT NOTE ---
History Report prepared by Gosia: Jalen Ellis Under the Supervision of: Dr. Harpreet Gonsales M.D. First contact with patient: 17:54 Chief Complaint: ABDOMINAL PAIN Stated Complaint: AB PAIN Nursing Triage Summary: Pt arrives to ER via ALS with reports of LLQ abdominal pain. Pt reports she is experiencing bleeding, EMS reports this is vaginal, not rectal. Pt states "the pain is hot, like menstrual cramps." Pt reports she was recently seen here for shortness of breath but did not report her abdominal symptoms, "they've been going on for several months." History of Present Illness The patient is a 66 year old female who presents to the Emergency Room via ALS with complaints of LLQ abdominal pain that began seven months ago. The last time the patient was in the ED, she was experiencing shortness of breath and did not tell the staff about this pain. She describes it as a "hot, cramping" pain. She rates her pain a 6/10 in severity. Her pain is radiating into her back. EMS reports that she is having some vaginal bleeding, not rectal bleeding. She has not seen an OBGYN for 7 years. The patient is not coughing or short of breath at this time. Source of History: patient, EMS Onset: a couple of months ago Position: abdomen (LLQ) Symptom Intensity: 6/10 Quality: cramping Timing: other (persistent) Associated Symptoms: No SOB, No cough Note: EMS reports some vaginal bleeding, no rectal bleeding. Review of Systems See HPI for pertinent positives & negatives. A total of 10 systems reviewed and were otherwise negative. 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 (3) Tonsillectomy Family History Cancer MOTHER (Colon ) Diabetes mellitus FATHER Endocrine disorder SISTER (Thyroid) FH: mental illness SISTER Heart disease FATHER MOTHER Stroke Social History Smoking Status: Current Every Day Smoker Alcohol Use: none Drug Use: none Marital Status: Housing Status: lives alone Occupation Status: disabled Current/Historical Medications Scheduled Metoprolol Tartrate (Metoprolol Tartrate), 50 MG PO BID Risperidone (Risperdal), 1 TAB PO HS Allergies Coded Allergies: Atropine (Verified Allergy, Severe, castillo, hard time breathing, 11/12/16) Diphenhydramine (Verified Allergy, Severe, "I ALMOST .", 11/12/16) Hyoscyamine (Verified Allergy, Severe, castillo, hard time breathing, 11/12/16) Labetalol (Verified Allergy, Severe, selling,loss of taste,itch, rash, 05/21) Phenobarbital (Verified Allergy, Severe, castillo, hard time breathing, 11/12/16) Prednisone (Verified Allergy, Severe, Edema face,lips and tongue., 11/12/16 ) Meticorten Scopolamine (Verified Allergy, Severe, castillo, hard time breathing, 11/12/16) Dicyclomine (Verified Allergy, Intermediate, GI SYMPTOMS, 11/12/16) Enoxaparin (Verified Allergy, Intermediate, RASH, 11/12/16) Levofloxacin (Verified Allergy, Intermediate, ARM TURNED "FIREY RED" WHEN INFUSED, CLEARED IN A FEW HOURS, 11/12/16) Tramadol (Verified Allergy, Intermediate, blisters all over, 11/12/16) Warfarin (Verified Allergy, Intermediate, rash, 11/12/16) Chlorpromazine (Verified Allergy, Mild, TOLERATING PROLIXIN AT HOME , 11/12/16) Penicillins (Verified Allergy, Mild, 11/12/16) Coumarin (Verified Allergy, Unknown, UNKNOWN, 11/12/16) Naproxen (Verified Allergy, Unknown, Unknown, 11/12/16) Nitrofurantoin (Verified Allergy, Unknown, hallucinating, 11/12/16) Morphine (Verified Adverse Reaction, Severe, SHOCK;TOLERATES DEMEROL, 11/12) ABLE TO TAKE DEMEROL WITHOUT DIFFICULTY Aspirin (Verified Adverse Reaction, Intermediate, BLEEDING, 11/12/16) Codeine (Verified Adverse Reaction, Intermediate, BP DROPS AND PASSES OUT, 11/12/16) Replaces CODEINE PHOSP Ibuprofen (Verified Adverse Reaction, Intermediate, BLEEDING, 11/12/16) Amitriptyline (Verified Adverse Reaction, Mild, Nausea/vomitimg, 11/12/16) Lisinopril (Verified Adverse Reaction, Mild, COUGH, 11/12/16) Physical Exam Vital Signs Date Time Temp Pulse Resp B/P Pulse Ox O2 Delivery O2 Flow Rate FiO2 11/12/16 21:40 84 20 178/101 95 Room Air 11/12/16 20:46 85 16 140/83 99 Room Air 11/12/16 19:32 98 23 138/85 11/12/16 18:00 37.0 116 20 161/88 96 Room Air 11/12/16 17:55 114 Physical Exam GENERAL: Patient is a healthy-appearing well-nourished HEAD: Normocephalic atraumatic EYES: Ocular movements intact pupils equal and react to light OROPHARYNX mucous membranes are moist no exudates present no erythema or edema present NECK: Supple no nuchal rigidity CHEST: Good equal expansion LUNGS: Clear and equal to auscultation CARDIAC: Normal S1 and S2 ABDOMEN: Soft nontender no guarding BACK: No CVA tenderness EXTREMITIES: No pain upon palpation normal muscle strength in all groups no clubbing cyanosis or edema NEURO: Patient is following commands is answering questions appropriately. Alert and oriented x3 Cranial Nerves 2-12 grossly intact Medical Decision & Procedures ER Provider Diagnostic Interpretation: Radiology results are stated below per my review and radiologist interpretation: EXAMINATION: PELVIC ULTRASOUND CLINICAL HISTORY: Pt c/o PELVIC PAIN COMPARISON STUDY: None FINDINGS: The uterus measured 6.0 cm. 3 small fibroids measuring up to 1.3 cm maximum dimension.. The endometrial stripe measured 2 mm. The right ovary measured not identified. The left ovary measured not identified. There was no evidence of pathologic free pelvic fluid. IMPRESSION: Several small uterine fibroids. Nonvisualization of the ovaries possibly secondary to atrophy. Otherwise negative study Electronically signed by: Anuel Martinez M.D. 11/12/2016 8:44 PM Dictated Date/Time: 11/12/2016 8:43 PM ABDOMEN 2VIEW W/PA CHEST RTN CLINICAL HISTORY: Pt c/o diffuse abd pain pain COMPARISON STUDY: 11/07/2016 FINDINGS: The soft tissues, psoas shadows, renal outlines and intestinal gas pattern appear normal. There is no evidence for bowel obstruction. There is no evidence for free intraperitoneal air. No abnormal abdominal calcifications are seen. A frontal view of the chest was performed and is unremarkable. Inferior vena caval filters are unchanged in location. IMPRESSION: No acute process of the chest or abdomen Electronically signed by: Anuel Martinez M.D. 11/12/2016 8:52 PM Dictated Date/Time: 11/12/2016 8:52 PM Laboratory Results 11/12/16 19:42 Red Blood Count 4.12, Mean Corpuscular Volume 88.1, Mean Corpuscular Hemoglobin 30.3, Mean Corpuscular Hemoglobin Concent 34.4, Mean Platelet Volume 9.2, Neutrophils (%) (Auto) 52.3, Lymphocytes (%) (Auto) 35.1, Monocytes (%) (Auto) 8.1, Eosinophils (%) (Auto) 3.6, Basophils (%) (Auto) 0.6, Neutrophils # (Auto) 4.11, Lymphocytes # (Auto) 2.76, Monocytes # (Auto) 0.64, Eosinophils # (Auto) 0.28, Basophils # (Auto) 0.05 11/12/16 19:42 Test 11/12/16 18:22 11/12/16 19:42 Urine Color YELLOW Urine Appearance CLEAR (CLEAR) Urine pH 7.0 (4.5-7.5) Urine Specific [place] 1.008 (1.000-1.030) Urine Protein NEG (NEG) Urine Glucose (UA) NEG (NEG) Urine Ketones NEG (NEG) Urine Occult Blood 2+ (NEG) Urine Nitrite NEG (NEG) Urine Bilirubin NEG (NEG) Urine Urobilinogen NEG (NEG) Urine Leukocyte Esterase NEG (NEG) Urine WBC (Auto) 1-5 /hpf (0-5) Urine RBC (Auto) 0-4 /hpf (0-4) Urine Hyaline Casts (Auto) 0 /lpf (0-5) Urine Epithelial Cells (Auto) 10-20 /lpf (0-5) Urine Bacteria (Auto) NEG (NEG) White Blood Count 7.86 K/uL (4.8-10.8) Red Blood Count 4.12 M/uL (4.2-5.4) Hemoglobin 12.5 g/dL (12.0-16.0) Hematocrit 36.3 % (37-47) Mean Corpuscular Volume 88.1 fL (80-100) Mean Corpuscular Hemoglobin 30.3 pg (25-34) Mean Corpuscular Hemoglobin Concent 34.4 g/dl (32-36) Platelet Count 401 K/uL (130-400) Mean Platelet Volume 9.2 fL (7.4-10.4) Neutrophils (%) (Auto) 52.3 % Lymphocytes (%) (Auto) 35.1 % Monocytes (%) (Auto) 8.1 % Eosinophils (%) (Auto) 3.6 % Basophils (%) (Auto) 0.6 % Neutrophils # (Auto) 4.11 K/uL (1.4-6.5) Lymphocytes # (Auto) 2.76 K/uL (1.2-3.4) Monocytes # (Auto) 0.64 K/uL (0.11-0.59) Eosinophils # (Auto) 0.28 K/uL (0-0.5) Basophils # (Auto) 0.05 K/uL (0-0.2) RDW Standard Deviation 50.1 fL (36.4-46.3) RDW Coefficient of Variation 15.5 % (11.5-14.5) Immature Granulocyte % (Auto) 0.3 % Immature Granulocyte # (Auto) 0.02 K/uL (0.00-0.02) Anion Gap 8.0 mmol/L (3-11) Est Creatinine Clear Calc Drug Dose 55.5 ml/min Estimated GFR () 89.0 Estimated GFR (Non- 76.8 BUN/Creatinine Ratio 14.9 (10-20) Calcium Level 9.2 mg/dl (8.5-10.1) Total Bilirubin 0.2 mg/dl (0.2-1) Direct Bilirubin < 0.1 mg/dl (0-0.2) Aspartate Amino Transf (AST/SGOT) 17 U/L (15-37) Alanine Aminotransferase (ALT/SGPT) 30 U/L (12-78) Alkaline Phosphatase 94 U/L (45-117) Total Protein 7.1 gm/dl (6.4-8.2) Albumin 3.6 gm/dl (3.4-5.0) Lipase 667 U/L (73-393) Labs reviewed by ED physician. Medications Administered Medications (Trade) Dose Ordered Sig/Thiago Route Start Time Stop Time Status Last Admin Dose Admin Sodium Chloride (Nss 1000ml) 1,000 ml @ 999 mls/hr Q1H1M STAT IV 11/12/16 18:35 11/12/16 19:35 DC 11/12/16 19:32 999 MLS/HR ED Course 1754: Past medical records reviewed. The patient was evaluated in room B9. A complete history and physical examination was performed. 1834: Ordered Sodium Chloride 1000 ml @ 999 mls/hr IV 2141: Upon reexamination the patient is resting. I discussed results and treatment plan with the patient. She verbalizes agreement and understanding. The patient is ready for discharge. Medical Decision Differential diagnosis: Etiologies such as appendicitis, diverticulitis, PUD, biliary pathology, UTI, pancreatitis, obstruction, mesenteric ischemia, aortic pathology, infections, inflammatory bowel disease, renal colic, as well as others were entertained. This is a 66 year female who presents emergency department complaining of abdominal cramping along with vaginal bleeding. I will note that the patient's hemoglobin is stable. The patient reports that the abdominal cramping in the vaginal bleeding have been ongoing for the past several months. Based on this finding I felt that the patient was well enough that she could be safely discharged home for follow-up with both gynecology as well as gastroenterology. The patient was given a fluid bolus in the emergency department. Patient was in agreement with the treatment plan. Impression Primary Impression: Abdominal cramping Scribe Attestation The scribe's documentation has been prepared under my direction and personally reviewed by me in its entirety. I confirm that the note above accurately reflects all work, treatment, procedures, and medical decision making performed by me. Departure Information Dispostion Home / Self-Care Referrals Maria Alejandra Gonzalez D.O. (PCP) Eleazar Rosa ., Nathaniel Garcia MD Forms HOME CARE DOCUMENTATION FORM, IMPORTANT VISIT INFORMATION, School Instructions, Work Instructions Patient Instructions Bleeding Uterine, ED Bleed Irregular Vaginal, My [facility] Additional Instructions Follow up with Dr Rosa's office (Head Char Filter Tank Tender) Follow up with DR Culver's office (GI) You have been examined and treated today on an emergency basis only. This is not a substitute for, or an effort to provide, complete comprehensive medical care. It is impossible to recognize and treat all injuries or illnesses in a single emergency department visit. It is therefore important that you follow up closely with DR Gonzalez. Call as soon as possible for an appointment. Thank you for your time and consideration. I look forward to speaking with you again soon. Please don't hesitate to call us if you have any questions.
[2016-11-12 19:04] LABS: URINE APPEARANCE CLEAR (CLEAR); URINE BILIRUBIN NEG (NEG); URINE COLOR YELLOW; URINE NITRITE NEG (NEG); URINE SPECIFIC GRAVITY 1.008 (1.000-1.030); UROBILINOGEN NEG (NEG)
[2016-11-12 19:12] LABS: MANUAL MICROSCOPIC REQUIRED? NO; REVIEW REQ? NO
[2016-11-12 19:54] LABS: BASO % 0.6 %; BASO ABS # 0.05 K/uL (0-0.2); COMPLETE YES; EOS % 3.6 %; HEMATOCRIT 36.3 % (37-47); IG% 0.3 %; LYMPH % 35.1 %; LYMPH ABS # 2.76 K/uL (1.2-3.4); MEAN CELL VOLUME 88.1 fL (80-100); MEAN CORPUSCULAR HEMOGLOBIN 30.3 pg (25-34); MEAN CORPUSCULAR HGB CONC 34.4 g/dl (32-36); MEAN PLATELET VOLUME 9.2 fL (7.4-10.4); MONO % 8.1 %; NEUT % 52.3 %; PLATELET COUNT 401 K/uL (130-400); RED BLOOD COUNT 4.12 M/uL (4.2-5.4); WHITE BLOOD COUNT 7.86 K/uL (4.8-10.8)
[2016-11-12 20:26] LABS: ALT/SGPT 30 U/L (12-78); AST/SGOT 17 U/L (15-37); BLOOD UREA NITROGEN 12 mg/dl (7-18); BUN/CREATININE RATIO 14.9 (10-20); CALCIUM 9.2 mg/dl (8.5-10.1); CARBON DIOXIDE 24 mmol/L (21-32); CHLORIDE 109 mmol/L (98-107); CREATININE 0.81 mg/dl (0.60-1.20); GLUCOSE 98 mg/dl (70-99); POTASSIUM 4.2 mmol/L (3.5-5.1); SODIUM 141 mmol/L (136-145)
[2016-11-12 20:28] LABS: ALKALINE PHOSPHATASE 94 U/L (45-117)
--- NOTE | 2016-11-12 20:46 | DIAGNOSTIC IMAGING REPORT ---
EXAMINATION: PELVIC ULTRASOUND CLINICAL HISTORY: Pt c/o PELVIC PAIN COMPARISON STUDY: None FINDINGS: The uterus measured 6.0 cm. 3 small fibroids measuring up to 1.3 cm maximum dimension.. The endometrial stripe measured 2 mm. The right ovary measured not identified. The left ovary measured not identified. There was no evidence of pathologic free pelvic fluid. IMPRESSION: Several small uterine fibroids. Nonvisualization of the ovaries possibly secondary to atrophy. Otherwise negative study Electronically signed by: Anuel Martinez M.D. 11/12/2016 8:44 PM Dictated Date/Time: 11/12/2016 8:43 PM
--- NOTE | 2016-11-12 20:54 | DIAGNOSTIC IMAGING REPORT ---
ABDOMEN 2VIEW W/PA CHEST RTN CLINICAL HISTORY: Pt c/o diffuse abd pain pain COMPARISON STUDY: 11/07/2016 FINDINGS: The soft tissues, psoas shadows, renal outlines and intestinal gas pattern appear normal. There is no evidence for bowel obstruction. There is no evidence for free intraperitoneal air. No abnormal abdominal calcifications are seen. A frontal view of the chest was performed and is unremarkable. Inferior vena caval filters are unchanged in location. IMPRESSION: No acute process of the chest or abdomen Electronically signed by: Anuel Martinez M.D. 11/12/2016 8:52 PM Dictated Date/Time: 11/12/2016 8:52 PM
[2016-11-12 22:38] VITALS: BP 186/100; PULSE 89; O2SAT 97
== END 2016-11-12 22:39 | disposition home or self-care (01) ==
LOC: EDBD 17:48 → C.EDB 17:49
DX: R10.32 Left lower quadrant pain (principal); N93.9 Abnormal uterine and vaginal bleeding, unspecified; I10 Essential (primary) hypertension; F31.9 Bipolar disorder, unspecified; F41.9 Anxiety disorder, unspecified; F20.9 Schizophrenia, unspecified; F17.200 Nicotine dependence, unspecified, uncomplicated; Z86.718 Personal history of other venous thrombosis and embolism; Z88.0 Allergy status to penicillin; Z88.5 Allergy status to narcotic agent; Z88.6 Allergy status to analgesic agent; Z88.8 Allergy status to other drugs, medicaments and biological substances; Z80.9 Family history of malignant neoplasm, unspecified; Z83.3 Family history of diabetes mellitus; Z82.0 Family history of epilepsy and other diseases of the nervous system; Z82.49 Family history of ischemic heart disease and other diseases of the circulatory system

== ENCOUNTER 2017-01-03 22:32 | Emergency (ER) | payer OTHER ==
[~2017-01-03] VITALS: Ht 157.5 cm; Wt 54.9 kg
[2017-01-03 22:36] VITALS: Ht 157.5 cm; Wt 54.9 kg
[2017-01-03] MEDS ORDERED: SODIUM CHLORIDE 0.9% 1000ML 1,000 ML IV ONE (23:15)
[2017-01-04 00:26] VITALS: TEMP 36.7
[2017-01-04 00:32] LABS: BASO % 0.6 %; BASO ABS # 0.05 K/uL (0-0.2); COMPLETE YES; EOS % 4.6 %; HEMATOCRIT 42.6 % (37-47); IG% 0.1 %; LYMPH % 38.4 %; LYMPH ABS # 3.45 K/uL (1.2-3.4); MEAN PLATELET VOLUME 9.6 fL (7.4-10.4); NEUT % 47.3 %; PLATELET COUNT 396 K/uL (130-400); RED BLOOD COUNT 4.84 M/uL (4.2-5.4); WHITE BLOOD COUNT 8.99 K/uL (4.8-10.8)
[2017-01-04] MEDS ORDERED: SOAP SUDS ENEMA PR ONE (00:45)
[2017-01-04 01:07] LABS: ALB/GLOB RATIO 1.1 (0.9-2); ALKALINE PHOSPHATASE 96 U/L (45-117); ALT/SGPT 20 U/L (12-78); BLOOD UREA NITROGEN 8 mg/dl (7-18); BUN/CREATININE RATIO 9.9 (10-20); CALCIUM 9.2 mg/dl (8.5-10.1); CARBON DIOXIDE 28 mmol/L (21-32); CHLORIDE 105 mmol/L (98-107); CREATININE 0.79 mg/dl (0.60-1.20); GLUCOSE 105 mg/dl (70-99); SODIUM 140 mmol/L (136-145)
[2017-01-04] MEDS ORDERED: MAGNESIUM CITRATE 296 ML/BTL PO ONE (02:00)
[2017-01-04] MEDS ORDERED: ONDANSETRON HOME PACK 4MG OD TAB PO ONE (02:00)
--- NOTE | 2017-01-04 02:00 | EMERGENCY ROOM VISIT NOTE ---
ED Visit Note First contact with patient: 22:55 Patient was seen with the physician sales support assistant. I agree with his workup and evaluation of the patient. Patient will be following up with her primary care physician and referred to GI. Problem List Medical Problems: (1) Alcohol abuse Status: Resolved (2) Anxiety Status: Chronic (3) Benign hypertension Status: Chronic (4) Bipolar disorder Status: Chronic (5) Chronic pelvic pain of female Status: Chronic (6) Deep venous thrombosis Status: Resolved (7) Drug abuse Status: Resolved (8) IBS Status: Chronic (9) IVC filter Status: Resolved (10) Posttraumatic stress disorder Status: Chronic (11) Schizoaffective disorder Status: Chronic (12) Suicide attempt Permanent Comment: acetaminophen OD Status: Resolved (13) Tobacco abuse Status: Chronic (14) UGI bleed Permanent Comment: M-W tear Status: Resolved Surgical Problems: (1) Cystoscopy Status: Resolved (2) h/o inferior vena cava filter placement Status: Chronic (3) Tonsillectomy Status: Resolved Current/Historical Medications Scheduled Metoprolol Tartrate (Metoprolol Tartrate), 50 MG PO BID Allergies Coded Allergies: Atropine (Verified Allergy, Severe, castillo, hard time breathing, 11/12/16) Diphenhydramine (Verified Allergy, Severe, "I ALMOST .", 11/12/16) Hyoscyamine (Verified Allergy, Severe, castillo, hard time breathing, 11/12/16) Labetalol (Verified Allergy, Severe, selling,loss of taste,itch, rash, 05/21) Phenobarbital (Verified Allergy, Severe, castillo, hard time breathing, 11/12/16) Prednisone (Verified Allergy, Severe, Edema face,lips and tongue., 11/12/16 ) Meticorten Scopolamine (Verified Allergy, Severe, castillo, hard time breathing, 11/12/16) Dicyclomine (Verified Allergy, Intermediate, GI SYMPTOMS, 11/12/16) Enoxaparin (Verified Allergy, Intermediate, RASH, 11/12/16) Levofloxacin (Verified Allergy, Intermediate, ARM TURNED "FIREY RED" WHEN INFUSED, CLEARED IN A FEW HOURS, 11/12/16) Tramadol (Verified Allergy, Intermediate, blisters all over, 11/12/16) Warfarin (Verified Allergy, Intermediate, rash, 11/12/16) Chlorpromazine (Verified Allergy, Mild, TOLERATING PROLIXIN AT HOME , 11/12/16) Penicillins (Verified Allergy, Mild, 11/12/16) Coumarin (Verified Allergy, Unknown, UNKNOWN, 11/12/16) Naproxen (Verified Allergy, Unknown, Unknown, 11/12/16) Nitrofurantoin (Verified Allergy, Unknown, hallucinating, 11/12/16) Morphine (Verified Adverse Reaction, Severe, SHOCK;TOLERATES DEMEROL, 11/12) ABLE TO TAKE DEMEROL WITHOUT DIFFICULTY Aspirin (Verified Adverse Reaction, Intermediate, BLEEDING, 11/12/16) Codeine (Verified Adverse Reaction, Intermediate, BP DROPS AND PASSES OUT, 11/12/16) Replaces CODEINE PHOSP Ibuprofen (Verified Adverse Reaction, Intermediate, BLEEDING, 11/12/16) Amitriptyline (Verified Adverse Reaction, Mild, Nausea/vomitimg, 11/12/16) Lisinopril (Verified Adverse Reaction, Mild, COUGH, 11/12/16) Vital Signs Date Time Temp Pulse Resp B/P (MAP) Pulse Ox O2 Delivery O2 Flow Rate FiO2 01/04/17 00:26 36.7 76 193/103 99 Room Air 01/03/17 22:36 36.7 110 18 227/119 100 Room Air Laboratory Results 01/04/17 00:11 Red Blood Count 4.84, Mean Corpuscular Volume 88.0, Mean Corpuscular Hemoglobin 30.0, Mean Corpuscular Hemoglobin Concent 34.0, Mean Platelet Volume 9.6, Neutrophils (%) (Auto) 47.3, Lymphocytes (%) (Auto) 38.4, Monocytes (%) (Auto) 9.0, Eosinophils (%) (Auto) 4.6, Basophils (%) (Auto) 0.6, Neutrophils # (Auto) 4.26, Lymphocytes # (Auto) 3.45, Monocytes # (Auto) 0.81, Eosinophils # (Auto) 0.41, Basophils # (Auto) 0.05 01/04/17 00:11 Test 01/04/17 00:11 White Blood Count 8.99 K/uL (4.8-10.8) Red Blood Count 4.84 M/uL (4.2-5.4) Hemoglobin 14.5 g/dL (12.0-16.0) Hematocrit 42.6 % (37-47) Mean Corpuscular Volume 88.0 fL (80-100) Mean Corpuscular Hemoglobin 30.0 pg (25-34) Mean Corpuscular Hemoglobin Concent 34.0 g/dl (32-36) Platelet Count 396 K/uL (130-400) Mean Platelet Volume 9.6 fL (7.4-10.4) Neutrophils (%) (Auto) 47.3 % Lymphocytes (%) (Auto) 38.4 % Monocytes (%) (Auto) 9.0 % Eosinophils (%) (Auto) 4.6 % Basophils (%) (Auto) 0.6 % Neutrophils # (Auto) 4.26 K/uL (1.4-6.5) Lymphocytes # (Auto) 3.45 K/uL (1.2-3.4) Monocytes # (Auto) 0.81 K/uL (0.11-0.59) Eosinophils # (Auto) 0.41 K/uL (0-0.5) Basophils # (Auto) 0.05 K/uL (0-0.2) RDW Standard Deviation 50.5 fL (36.4-46.3) RDW Coefficient of Variation 15.5 % (11.5-14.5) Immature Granulocyte % (Auto) 0.1 % Immature Granulocyte # (Auto) 0.01 K/uL (0.00-0.02) Anion Gap 7.0 mmol/L (3-11) Est Creatinine Clear Calc Drug Dose 56.9 ml/min Estimated GFR () 91.7 Estimated GFR (Non- 79.1 BUN/Creatinine Ratio 9.9 (10-20) Calcium Level 9.2 mg/dl (8.5-10.1) Total Bilirubin 0.4 mg/dl (0.2-1) Aspartate Amino Transf (AST/SGOT) U/L (15-37) Alanine Aminotransferase (ALT/SGPT) 20 U/L (12-78) Alkaline Phosphatase 96 U/L (45-117) Troponin I < 0.015 ng/ml (0-0.045) Total Protein 8.1 gm/dl (6.4-8.2) Albumin 4.3 gm/dl (3.4-5.0) Globulin 3.8 gm/dl (2.5-4.0) Albumin/Globulin Ratio 1.1 (0.9-2) Lipase 643 U/L (73-393) Medications Administered Medications (Trade) Dose Ordered Sig/Thiago Route Start Time Stop Time Status Last Admin Dose Admin Sodium Chloride 1,000 ml @ 999 mls/hr Q1H1M ONCE IV 01/03/17 23:15 01/04/17 00:15 DC 01/04/17 00:24 999 MLS/HR Miscellaneous (Soap Suds Enema) 1 ea NOW ONCE ME 01/04/17 00:45 01/04/17 00:46 DC 01/04/17 01:03 1 EA Departure Information Impression Primary Impression: Constipation Dispostion Home / Self-Care Condition GOOD Forms HOME CARE DOCUMENTATION FORM, IMPORTANT VISIT INFORMATION Patient Instructions My [facility] Additional Instructions You were seen and evaluated today on an emergency basis only. This is not a substitute for, or an effort to provide, complete comprehensive medical care. It is not possible to recognize and treat all injuries or illnesses in a single emergency department visit. For this reason it is recommended that you followup with your adult education instructor by telephone tomorrow to arrange appropriate follow-up. Your symptoms appear to be caused by constipation. We recommend that you use magnesium citrate at home. Drink one half of the bottle, wait one hour, then drink the other half. Be sure to drink plenty of fluids such as water or Gatorade while taking this medication. This medication will help cause a bowel movement within a few hours. Zofran (homepack) 1 tablet under the tongue every 6 hrs as needed for nausea. You are welcome to return to the emergency department anytime with new, worsening, or concerning symptoms.
[2017-01-04 02:11] VITALS: BP 194/120; PULSE 83; O2SAT 100
--- NOTE | 2017-01-04 05:17 | EMERGENCY ROOM VISIT NOTE ---
History First contact with patient: 22:55 Chief Complaint: REFERRED BY DOCTOR Stated Complaint: SOB,DIZZY,LIGHTHEADED,ABD PAIN,REFERRED BY PRIMARY History of Present Illness The patient is a 66 year old female who presents to the Emergency Room with several complaints. The patient states that she has not had a normal bowel movement in the past 2 weeks. She states this is causing her abdominal pain as well as lightheadedness, shortness of breath, and dizziness. She tried an enema at home without relief of her symptoms. The patient has not had fever or chills. She rates her discomfort a 10/10. She contacted her primary care physician who referred her to the emergency department 12 hours ago. Review of Systems More than 10 systems were reviewed and otherwise negative with the exception of history of present illness. Past Medical/Surgical History Medical Problems: (1) Alcohol abuse (2) Anxiety (3) Benign hypertension (4) Bipolar disorder (5) Chronic pelvic pain of female (6) Deep venous thrombosis (7) Drug abuse (8) IBS (9) IVC filter (10) Posttraumatic stress disorder (11) Schizoaffective disorder (12) Suicide attempt (13) Tobacco abuse (14) UGI bleed Surgical Problems: (1) Cystoscopy (2) h/o inferior vena cava filter placement (3) Tonsillectomy Family History Cancer MOTHER (Colon ) Diabetes mellitus FATHER Endocrine disorder SISTER (Thyroid) FH: mental illness SISTER Heart disease FATHER MOTHER Stroke Social History Smoking Status: Current Some Day Smoker Alcohol Use: none Drug Use: none Marital Status: Housing Status: lives alone Occupation Status: disabled Current/Historical Medications Scheduled Metoprolol Tartrate (Metoprolol Tartrate), 50 MG PO BID Allergies Coded Allergies: Atropine (Verified Allergy, Severe, castillo, hard time breathing, 11/12/16) Diphenhydramine (Verified Allergy, Severe, "I ALMOST .", 11/12/16) Hyoscyamine (Verified Allergy, Severe, castillo, hard time breathing, 11/12/16) Labetalol (Verified Allergy, Severe, selling,loss of taste,itch, rash, 05/21) Phenobarbital (Verified Allergy, Severe, castillo, hard time breathing, 11/12/16) Prednisone (Verified Allergy, Severe, Edema face,lips and tongue., 11/12/16 ) Meticorten Scopolamine (Verified Allergy, Severe, castillo, hard time breathing, 11/12/16) Dicyclomine (Verified Allergy, Intermediate, GI SYMPTOMS, 11/12/16) Enoxaparin (Verified Allergy, Intermediate, RASH, 11/12/16) Levofloxacin (Verified Allergy, Intermediate, ARM TURNED "FIREY RED" WHEN INFUSED, CLEARED IN A FEW HOURS, 11/12/16) Tramadol (Verified Allergy, Intermediate, blisters all over, 11/12/16) Warfarin (Verified Allergy, Intermediate, rash, 11/12/16) Chlorpromazine (Verified Allergy, Mild, TOLERATING PROLIXIN AT HOME , 11/12/16) Penicillins (Verified Allergy, Mild, 11/12/16) Coumarin (Verified Allergy, Unknown, UNKNOWN, 11/12/16) Naproxen (Verified Allergy, Unknown, Unknown, 11/12/16) Nitrofurantoin (Verified Allergy, Unknown, hallucinating, 11/12/16) Morphine (Verified Adverse Reaction, Severe, SHOCK;TOLERATES DEMEROL, 11/12) ABLE TO TAKE DEMEROL WITHOUT DIFFICULTY Aspirin (Verified Adverse Reaction, Intermediate, BLEEDING, 11/12/16) Codeine (Verified Adverse Reaction, Intermediate, BP DROPS AND PASSES OUT, 11/12/16) Replaces CODEINE PHOSP Ibuprofen (Verified Adverse Reaction, Intermediate, BLEEDING, 11/12/16) Amitriptyline (Verified Adverse Reaction, Mild, Nausea/vomitimg, 11/12/16) Lisinopril (Verified Adverse Reaction, Mild, COUGH, 11/12/16) Physical Exam Vital Signs Date Time Temp Pulse Resp B/P (MAP) Pulse Ox O2 Delivery O2 Flow Rate FiO2 01/04/17 02:11 83 194/120 100 01/04/17 00:26 36.7 76 193/103 99 Room Air 01/03/17 22:36 36.7 110 18 227/119 100 Room Air Pain Rating (0-10): 0 Physical Exam VITALS: Vitals are noted on the nurse's note and reviewed by myself. Vital signs stable. GENERAL: Well-developed, well-nourished, white female, who is in no acute distress and resting comfortably. Patient is cooperative with the examination. HEAD: Normocephalic atraumatic. HEART: Regular rate and rhythm without murmurs gallops or rubs. LUNGS: Clear to auscultation bilaterally without wheezes, rales or rhonchi. No retractions or accessory muscle use. ABDOMEN: Positive normal bowel sounds x 4. Soft with mild diffuse tenderness. No distinct point tenderness. No rebound or guarding. No CVA tenderness. MUSCULOSKELETAL: No muscle atrophy, erythema, or edema noted. Full range of motion without joint tenderness in all extremities. Medical Decision & Procedures Laboratory Results 01/04/17 00:11 Red Blood Count 4.84, Mean Corpuscular Volume 88.0, Mean Corpuscular Hemoglobin 30.0, Mean Corpuscular Hemoglobin Concent 34.0, Mean Platelet Volume 9.6, Neutrophils (%) (Auto) 47.3, Lymphocytes (%) (Auto) 38.4, Monocytes (%) (Auto) 9.0, Eosinophils (%) (Auto) 4.6, Basophils (%) (Auto) 0.6, Neutrophils # (Auto) 4.26, Lymphocytes # (Auto) 3.45, Monocytes # (Auto) 0.81, Eosinophils # (Auto) 0.41, Basophils # (Auto) 0.05 01/04/17 00:11 Test 01/04/17 00:11 White Blood Count 8.99 K/uL (4.8-10.8) Red Blood Count 4.84 M/uL (4.2-5.4) Hemoglobin 14.5 g/dL (12.0-16.0) Hematocrit 42.6 % (37-47) Mean Corpuscular Volume 88.0 fL (80-100) Mean Corpuscular Hemoglobin 30.0 pg (25-34) Mean Corpuscular Hemoglobin Concent 34.0 g/dl (32-36) Platelet Count 396 K/uL (130-400) Mean Platelet Volume 9.6 fL (7.4-10.4) Neutrophils (%) (Auto) 47.3 % Lymphocytes (%) (Auto) 38.4 % Monocytes (%) (Auto) 9.0 % Eosinophils (%) (Auto) 4.6 % Basophils (%) (Auto) 0.6 % Neutrophils # (Auto) 4.26 K/uL (1.4-6.5) Lymphocytes # (Auto) 3.45 K/uL (1.2-3.4) Monocytes # (Auto) 0.81 K/uL (0.11-0.59) Eosinophils # (Auto) 0.41 K/uL (0-0.5) Basophils # (Auto) 0.05 K/uL (0-0.2) RDW Standard Deviation 50.5 fL (36.4-46.3) RDW Coefficient of Variation 15.5 % (11.5-14.5) Immature Granulocyte % (Auto) 0.1 % Immature Granulocyte # (Auto) 0.01 K/uL (0.00-0.02) Anion Gap 7.0 mmol/L (3-11) Est Creatinine Clear Calc Drug Dose 56.9 ml/min Estimated GFR () 91.7 Estimated GFR (Non- 79.1 BUN/Creatinine Ratio 9.9 (10-20) Calcium Level 9.2 mg/dl (8.5-10.1) Total Bilirubin 0.4 mg/dl (0.2-1) Aspartate Amino Transf (AST/SGOT) U/L (15-37) Alanine Aminotransferase (ALT/SGPT) 20 U/L (12-78) Alkaline Phosphatase 96 U/L (45-117) Troponin I < 0.015 ng/ml (0-0.045) Total Protein 8.1 gm/dl (6.4-8.2) Albumin 4.3 gm/dl (3.4-5.0) Globulin 3.8 gm/dl (2.5-4.0) Albumin/Globulin Ratio 1.1 (0.9-2) Lipase 643 U/L (73-393) Medications Administered Medications (Trade) Dose Ordered Sig/Thiago Route Start Time Stop Time Status Last Admin Dose Admin Sodium Chloride 1,000 ml @ 999 mls/hr Q1H1M ONCE IV 01/03/17 23:15 01/04/17 00:15 DC 01/04/17 00:24 999 MLS/HR Miscellaneous (Soap Suds Enema) 1 ea NOW ONCE NE 01/04/17 00:45 01/04/17 00:46 DC 01/04/17 01:03 1 EA Magnesium Citrate (Citrate Of Magnesia Soln) 296 ml NOW ONCE PO 01/04/17 02:00 01/04/17 02:01 DC 01/04/17 02:04 296 ML Ondansetron HCl (ZOFRAN ODT 4MG Home Pack) 1 [facility] UD ONCE PO 01/04/17 02:00 01/04/17 02:01 DC 01/04/17 02:04 1 [facility] Course Physical exam and history were performed. Nursing notes and EMR were reviewed. Patient appears to have reports of constipation and abdominal pain. She reports no normal bowel movement the past 2 weeks. The patient is with no signs of an acute surgical abdomen on examination. She does not appear in acute distress. I discussed options of care with the patient. IV access was established and labs were obtained. Patient was hydrated with normal saline. Plain films of the abdomen and chest were performed. The patient's blood work is as above and was reviewed. She does not have a significantly elevated white blood cell count. There is no gross anemia, bandemia, or significant electrolyte imbalance. X-ray was reviewed by myself and my attending physician, and appears to show some increased stool in the ascending and transverse colon. Because of the patient's symptoms and reports that she has not had a bowel movement in 2 weeks, we discussed the utilization of an enema, and she agreed. A soapsuds enema was performed by staff, and the patient had minimal results. She did refuse additional fluids through the enema after a few 100 mL's of fluid , and this may have limited the effectiveness of the enema. The case was discussed with my attending physician, Dr. Christian, who also independently evaluated the patient. The patient does not appear to have an acute cardiopulmonary process. Her blood pressure is elevated, but this is likely from the procedure. She will need to follow with her PCP for this. Many of her symptoms seem to be related to her constipation. The patient will be given a bottle of magnesium citrate to use at home. The patient reports that she is nauseated when she takes this, I will also give her a home pack of Zofran. The patient does see gastroenterology, but states that she refuses to have a colonoscopy. This is likely the next most appropriate step for her, and I did discuss this with her. She is to follow with her PCP and gastroenterology. She was otherwise invited back to the ER with any new, worsening, or concerning symptoms. Of note, the patient remained in the hospital after her discharge. She was witnessed in the cafeteria eating food at 3am. She was overheard complaining about not being admitted tonight. She was not in any distress, and certainly does not appear to have an acute process that requires admission. The chart was completed utilizing [employer] Speech Voice Recognition Software. Grammatical errors, random word insertions, pronoun errors, and incomplete sentences are an occasional consequence of this system due to software limitations, ambient noise, and hardware issues. Any formal questions or concerns about the content, text, or information contained within the body of this dictation should be directly addressed to the provider for clarification. . Medical Decision Differential diagnosis: Etiologies such as Constipation, appendicitis, diverticulitis, PUD, biliary pathology, UTI, pancreatitis, obstruction, mesenteric ischemia, aortic pathology , infections, inflammatory bowel disease, renal colic, as well as others were entertained. Impression Primary Impression: Constipation Departure Information Dispostion Home / Self-Care Condition GOOD Forms HOME CARE DOCUMENTATION FORM, IMPORTANT VISIT INFORMATION Patient Instructions My [facility] Additional Instructions You were seen and evaluated today on an emergency basis only. This is not a substitute for, or an effort to provide, complete comprehensive medical care. It is not possible to recognize and treat all injuries or illnesses in a single emergency department visit. For this reason it is recommended that you followup with your press service reader by telephone tomorrow to arrange appropriate follow-up. Your symptoms appear to be caused by constipation. We recommend that you use magnesium citrate at home. Drink one half of the bottle, wait one hour, then drink the other half. Be sure to drink plenty of fluids such as water or Gatorade while taking this medication. This medication will help cause a bowel movement within a few hours. Zofran (homepack) 1 tablet under the tongue every 6 hrs as needed for nausea. You are welcome to return to the emergency department anytime with new, worsening, or concerning symptoms.
--- NOTE | 2017-01-04 06:36 | DIAGNOSTIC IMAGING REPORT ---
PA CHEST RADIOGRAPH AND UPRIGHT AND SUPINE AP RADIOGRAPHS OF THE ABDOMEN CLINICAL HISTORY: Abdominal pain and constipation. COMPARISON STUDY: Chest radiograph abdominal series November 12, 2016. FINDINGS: There is no pneumothorax or pleural effusion. Lungs are clear. Cardiac size is normal. Mediastinal contours are normal. There is no evidence of pulmonary edema. There is old left ninth rib fracture. There is no free air. 2 IVC filters are unchanged in position. There is a [id number] amount stool within the colon with no significant stool within the rectum. IMPRESSION: 1. No free air or evidence of bowel obstruction. 2. No acute cardiopulmonary findings. Electronically signed by: Papa Nur M.D. 01/04/2017 6:34 AM Dictated Date/Time: 01/04/2017 6:33 AM
== END 2017-01-04 02:12 | disposition home or self-care (01) ==
LOC: C.EDB 22:34 → C.EDA 01-04 02:12
DX: K59.00 Constipation, unspecified (principal); F41.9 Anxiety disorder, unspecified; I10 Essential (primary) hypertension; F31.9 Bipolar disorder, unspecified; Z86.718 Personal history of other venous thrombosis and embolism; R42 Dizziness and giddiness; K58.9 Irritable bowel syndrome, unspecified; F43.10 Post-traumatic stress disorder, unspecified; Z80.0 Family history of malignant neoplasm of digestive organs; Z83.3 Family history of diabetes mellitus; Z83.49 Family history of other endocrine, nutritional and metabolic diseases; Z81.8 Family history of other mental and behavioral disorders; Z82.3 Family history of stroke; F17.210 Nicotine dependence, cigarettes, uncomplicated; Z79.899 Other long term (current) drug therapy

== ENCOUNTER 2017-01-12 15:31 | Emergency (ER) | payer OTHER ==
[~2017-01-12] VITALS: Ht 157.5 cm; Wt 54.7 kg
[2017-01-12 15:35] VITALS: TEMP 37.2
[2017-01-12 16:04] VITALS: O2SAT 100
[2017-01-12] MEDS ORDERED: LEVALBUTEROL 1.25MG/3ML NEB INH STA (16:14)
[2017-01-12] MEDS ORDERED: CAL1CHW4 PO (16:16)
[2017-01-12] MEDS ORDERED: ULT50 PO (16:16)
[2017-01-12] MEDS ORDERED: MINEOIL PO (16:16)
[2017-01-12] MEDS ORDERED: LORA-741 PO (16:16)
[2017-01-12 16:21] VITALS: Ht 157.5 cm; Wt 54.7 kg
[2017-01-12] MEDS ORDERED: AMLODIPINE BESYLATE 5 MG TAB PO ONE (16:30)
[2017-01-12 16:39] VITALS: PULSE 85; O2SAT 98
[2017-01-12 16:50] LABS: BASO % 0.6 %; BASO ABS # 0.05 K/uL (0-0.2); COMPLETE YES; HEMATOCRIT 41.6 % (37-47); IG% 0.2 %; LYMPH % 36.3 %; LYMPH ABS # 3.22 K/uL (1.2-3.4); MEAN CORPUSCULAR HEMOGLOBIN 30.3 pg (25-34); MEAN CORPUSCULAR HGB CONC 34.9 g/dl (32-36); MEAN PLATELET VOLUME 9.1 fL (7.4-10.4); MONO % 6.7 %; NEUT % 56.2 %; PLATELET COUNT 476 K/uL (130-400); RED BLOOD COUNT 4.78 M/uL (4.2-5.4); WHITE BLOOD COUNT 8.86 K/uL (4.8-10.8)
--- NOTE | 2017-01-12 16:59 | DIAGNOSTIC IMAGING REPORT ---
CHEST ONE VIEW PORTABLE CLINICAL HISTORY: Shortness of breath. Respiratory distress. COMPARISON STUDY: Chest radiograph January 03, 2017. FINDINGS: 2 IVC filters are unchanged in position. There is no pneumothorax. Mild left basilar opacity suggests atelectasis. Cardiac size is normal. Mediastinal contours are normal. There is no evidence of pulmonary edema. IMPRESSION: 1. No acute findings. 2. Mild left basilar opacity suggestive of atelectasis. Electronically signed by: Papa Nur M.D. 01/12/2017 4:57 PM Dictated Date/Time: 01/12/2017 4:56 PM
[2017-01-12 17:16] LABS: ALT/SGPT 30 U/L (12-78); BLOOD UREA NITROGEN 6 mg/dl (7-18); CARBON DIOXIDE 22 mmol/L (21-32); CHLORIDE 108 mmol/L (98-107); CREATININE 0.88 mg/dl (0.60-1.20); GLUCOSE 89 mg/dl (70-99); SODIUM 139 mmol/L (136-145)
[2017-01-12 17:21] LABS: ALKALINE PHOSPHATASE 106 U/L (45-117)
[2017-01-12 18:10] LABS: URINE APPEARANCE CLEAR (CLEAR); URINE BILIRUBIN NEG (NEG); URINE COLOR YELLOW; URINE NITRITE NEG (NEG); URINE PH 6.5 (4.5-7.5); UROBILINOGEN NEG (NEG)
[2017-01-12 18:19] LABS: MANUAL MICROSCOPIC REQUIRED? NO; REVIEW REQ? NO
[2017-01-12 18:23] LABS: PARTIAL THROMBOPLASTIN RATIO 1.1; PROTHROMBIN TIME (PATIENT) 10.5 SECONDS (9.0-12.0)
[2017-01-12 18:25] LABS: POTASSIUM 3.7 mmol/L (3.5-5.1)
[2017-01-12] MEDS ORDERED: AMLO5TAB2 PO (19:10)
[2017-01-12 19:31] VITALS: PULSE 82; O2SAT 97
[2017-01-12] MEDS ORDERED: LORAZEPAM 0.5 MG TAB SL STA (19:31)
[2017-01-12 19:45] VITALS: BP 169/83
[2017-01-12] MEDS ORDERED: METO50TA17 PO (21:12)
--- NOTE | 2017-01-12 23:14 | EMERGENCY ROOM VISIT NOTE ---
History Report prepared by Gosia: Lizeth Prado Under the Supervision of: Dr. Bonifacio Bee M.D. First contact with patient: 16:07 Chief Complaint: SHORTNESS OF BREATH Stated Complaint: SOB Nursing Triage Summary: Patient complaining of exacerbation of her COPD today while she was shopping. Patient SOB. Pulse ox 98% room air. Sitting in chair at this time. History of Present Illness The patient is a 66 year old female who presents to the Emergency Room with complaints of shortness of breath beginning today prior to arrival. The patient reports that she was shopping earlier today and did not feel well. Her breathing was off since this morning. She did not take any medication today for her symptoms, but did take medication for her hypertension. She has been unable to get an appointment with her family doctor for her hypertension. She also reports having the chills, and breaking out in hives 1 week ago. Additionally, the patient has had constipation, but this is chronic. The patient states that she tried an inhaler two years ago for her breathing problems, but that it exacerbated her symptoms. She has no history of COPD, pneumonia, or asthma. Pt denies LOC, headache, fevers, visual changes, neck pain, chest pain, nausea, vomiting, new abdominal pain, back pain, melena, hematochezia, numbness, weakness, lymphadenopathy, new rash, or other complaints. Source of History: patient Onset: today prior to arrival Position: chest Quality: other (shortness of breath) Timing: other (sudden) Review of Systems See HPI for pertinent positives and negatives. A total of ten systems were reviewed and were otherwise negative. 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 (3) Tonsillectomy Family History Cancer MOTHER (Colon ) Diabetes mellitus FATHER Endocrine disorder SISTER (Thyroid) FH: mental illness SISTER Heart disease FATHER MOTHER Stroke Social History Smoking Status: Current Every Day Smoker Alcohol Use: none Drug Use: none Marital Status: Housing Status: lives alone Occupation Status: disabled Current/Historical Medications Scheduled Amlodipine Besylate (Norvasc), 5 MG PO DAILY Mj Carb & Mag Hydrox-Simeth (Rolaids Advanced 1000-200-40 mg), 1 TAB PO PRN Lorazepam (Ativan), 0.5 MG PO PRN UD Metoprolol Tartrate (Metoprolol Tartrate), 50 MG PO [id number] Mineral Oil (Mineral Oil), 15 ML PO DAILY Tramadol HCl (Tramadol HCl), 50 MG PO PRN UD Allergies Coded Allergies: Atropine (Verified Allergy, Severe, castillo, hard time breathing, 11/12/16) Diphenhydramine (Verified Allergy, Severe, "I ALMOST .", 11/12/16) Hyoscyamine (Verified Allergy, Severe, castillo, hard time breathing, 11/12/16) Labetalol (Verified Allergy, Severe, selling,loss of taste,itch, rash, 05/21) Phenobarbital (Verified Allergy, Severe, castillo, hard time breathing, 11/12/16) Prednisone (Verified Allergy, Severe, Edema face,lips and tongue., 11/12/16 ) Meticorten Scopolamine (Verified Allergy, Severe, castillo, hard time breathing, 11/12/16) Dicyclomine (Verified Allergy, Intermediate, GI SYMPTOMS, 11/12/16) Enoxaparin (Verified Allergy, Intermediate, RASH, 11/12/16) Levofloxacin (Verified Allergy, Intermediate, ARM TURNED "FIREY RED" WHEN INFUSED, CLEARED IN A FEW HOURS, 11/12/16) Tramadol (Verified Allergy, Intermediate, blisters all over, 11/12/16) Warfarin (Verified Allergy, Intermediate, rash, 11/12/16) Chlorpromazine (Verified Allergy, Mild, TOLERATING PROLIXIN AT HOME , 11/12/16) Penicillins (Verified Allergy, Mild, 11/12/16) Coumarin (Verified Allergy, Unknown, UNKNOWN, 11/12/16) Naproxen (Verified Allergy, Unknown, Unknown, 11/12/16) Nitrofurantoin (Verified Allergy, Unknown, hallucinating, 11/12/16) Morphine (Verified Adverse Reaction, Severe, SHOCK;TOLERATES DEMEROL, 11/12) ABLE TO TAKE DEMEROL WITHOUT DIFFICULTY Aspirin (Verified Adverse Reaction, Intermediate, BLEEDING, 11/12/16) Codeine (Verified Adverse Reaction, Intermediate, BP DROPS AND PASSES OUT, 11/12/16) Replaces CODEINE PHOSP Ibuprofen (Verified Adverse Reaction, Intermediate, BLEEDING, 11/12/16) Amitriptyline (Verified Adverse Reaction, Mild, Nausea/vomitimg, 11/12/16) Lisinopril (Verified Adverse Reaction, Mild, COUGH, 11/12/16) Physical Exam Vital Signs Date Time Temp Pulse Resp B/P (MAP) Pulse Ox O2 Delivery O2 Flow Rate FiO2 01/12/17 19:45 169/83 01/12/17 19:31 82 20 223/108 97 Room Air 01/12/17 18:40 79 14 186/87 99 Room Air 01/12/17 17:54 98 Room Air 01/12/17 17:46 79 18 189/86 100 Room Air 74 174/85 79 167/94 01/12/17 16:50 78 01/12/17 16:39 85 16 98 Room Air 01/12/17 16:04 86 22 166/127 100 Room Air 01/12/17 16:04 100 Room Air 01/12/17 15:57 98 Room Air 01/12/17 15:35 37.2 94 20 195/99 98 Room Air Physical Exam GENERAL: Awake, alert, depressed appearing. HENT: Normocephalic, atraumatic. Oropharynx unremarkable. EYES: Normal conjunctiva. Sclera non-icteric. NECK: Supple. No nuchal rigidity. FROM. No JVD. RESPIRATORY: Clear to auscultation. CARDIAC: Regular rate, normal rhythm. Extremities warm and well perfused. Pulses equal. ABDOMEN: Soft, non-distended. No tenderness to palpation. No rebound or guarding. No masses. RECTAL: Deferred. MUSCULOSKELETAL: Chest examination reveals no tenderness. The back is symmetrical on inspection without obvious abnormality. There is no CVA tenderness to palpation. No joint edema. LOWER EXTREMITIES: Calves are equal size bilaterally and non-tender. No edema. No discoloration. NEURO: Normal sensorium. No sensory or motor deficits noted. SKIN: No rash or jaundice noted. Medical Decision & Procedures ER Provider Diagnostic Interpretation: X-ray: Per my interpretation, radiologist review. CHEST ONE VIEW PORTABLE CLINICAL HISTORY: Shortness of breath. Respiratory distress. COMPARISON STUDY: Chest radiograph January 03, 2017. FINDINGS: 2 IVC filters are unchanged in position. There is no pneumothorax. Mild left basilar opacity suggests atelectasis. Cardiac size is normal. Mediastinal contours are normal. There is no evidence of pulmonary edema. IMPRESSION: 1. No acute findings. 2. Mild left basilar opacity suggestive of atelectasis. Electronically signed by: Papa Nur M.D. 01/12/2017 4:57 PM Dictated Date/Time: 01/12/2017 4:56 PM Laboratory Results 01/12/17 16:40 Red Blood Count 4.78, Mean Corpuscular Volume 87.0, Mean Corpuscular Hemoglobin 30.3, Mean Corpuscular Hemoglobin Concent 34.9, Mean Platelet Volume 9.1, Neutrophils (%) (Auto) 56.2, Lymphocytes (%) (Auto) 36.3, Monocytes (%) (Auto) 6.7, Eosinophils (%) (Auto) 0.0, Basophils (%) (Auto) 0.6, Neutrophils # (Auto) 4.98, Lymphocytes # (Auto) 3.22, Monocytes # (Auto) 0.59, Eosinophils # (Auto) 0.00, Basophils # (Auto) 0.05 01/12/17 16:40 01/12/17 18:08 Test 01/12/17 16:40 01/12/17 17:51 01/12/17 18:08 White Blood Count 8.86 K/uL (4.8-10.8) Red Blood Count 4.78 M/uL (4.2-5.4) Hemoglobin 14.5 g/dL (12.0-16.0) Hematocrit 41.6 % (37-47) Mean Corpuscular Volume 87.0 fL (80-100) Mean Corpuscular Hemoglobin 30.3 pg (25-34) Mean Corpuscular Hemoglobin Concent 34.9 g/dl (32-36) Platelet Count 476 K/uL (130-400) Mean Platelet Volume 9.1 fL (7.4-10.4) Neutrophils (%) (Auto) 56.2 % Lymphocytes (%) (Auto) 36.3 % Monocytes (%) (Auto) 6.7 % Eosinophils (%) (Auto) 0.0 % Basophils (%) (Auto) 0.6 % Neutrophils # (Auto) 4.98 K/uL (1.4-6.5) Lymphocytes # (Auto) 3.22 K/uL (1.2-3.4) Monocytes # (Auto) 0.59 K/uL (0.11-0.59) Eosinophils # (Auto) 0.00 K/uL (0-0.5) Basophils # (Auto) 0.05 K/uL (0-0.2) RDW Standard Deviation 49.9 fL (36.4-46.3) RDW Coefficient of Variation 15.5 % (11.5-14.5) Immature Granulocyte % (Auto) 0.2 % Immature Granulocyte # (Auto) 0.02 K/uL (0.00-0.02) Anion Gap 9.0 mmol/L (3-11) Est Creatinine Clear Calc Drug Dose 51.1 ml/min Estimated GFR () 80.5 Estimated GFR (Non- 69.4 BUN/Creatinine Ratio 7.0 (10-20) Calcium Level 9.0 mg/dl (8.5-10.1) Total Bilirubin 0.5 mg/dl (0.2-1) Alanine Aminotransferase (ALT/SGPT) 30 U/L (12-78) Alkaline Phosphatase 106 U/L (45-117) Creatine Kinase MB 0.9 ng/ml (0.5-3.6) Creatine Kinase MB Ratio (0-3.0) Troponin I < 0.015 ng/ml (0-0.045) Pro-B-Type Natriuretic Peptide 128 pg/ml (0-900) Total Protein 8.2 gm/dl (6.4-8.2) Albumin 4.1 gm/dl (3.4-5.0) Globulin 4.1 gm/dl (2.5-4.0) Albumin/Globulin Ratio 1.0 (0.9-2) Urine Color YELLOW Urine Appearance CLEAR (CLEAR) Urine pH 6.5 (4.5-7.5) Urine Specific [place] 1.010 (1.000-1.030) Urine Protein NEG (NEG) Urine Glucose (UA) NEG (NEG) Urine Ketones NEG (NEG) Urine Occult Blood NEG (NEG) Urine Nitrite NEG (NEG) Urine Bilirubin NEG (NEG) Urine Urobilinogen NEG (NEG) Urine Leukocyte Esterase NEG (NEG) Prothrombin Time 10.5 SECONDS (9.0-12.0) Prothromb Time International Ratio 1.0 (0.9-1.1) Activated Partial Thromboplast Time 27.9 SECONDS (21.0-31.0) Partial Thromboplastin Ratio 1.1 Aspartate Amino Transf (AST/SGOT) 12 U/L (15-37) Total Creatine Kinase 76 U/L (26-192) Laboratory results reviewed by me Medications Administered Medications (Trade) Dose Ordered Sig/Thiago Route Start Time Stop Time Status Last Admin Dose Admin Levalbuterol (Xopenex 1.25MG/ 3ML Neb) 1.25 mg NOW STAT INH 01/12/17 16:14 01/12/17 16:18 DC 01/12/17 16:38 1.25 MG Amlodipine Besylate (Norvasc Tab) 5 mg NOW ONCE PO 01/12/17 16:30 01/12/17 16:32 DC 01/12/17 17:21 5 MG Lorazepam (Ativan Tab) 0.5 mg NOW STAT SL 01/12/17 19:31 01/12/17 19:32 DC 01/12/17 19:37 0.5 MG ECG Indication: SOB/dyspnea Rate (beats per minute): 74 Rhythm: normal sinus Findings: no acute ischemic change, no ectopy ED Course 160: The patient was evaluated in room B12B. A complete history and physical exam was performed. 161: Ordered Levalbuterol 1.25 mg INH. 1630: Ordered Norvasc Tab 5 mg PO. 172: I checked on the patient, and she is stable. 1814: I checked on the patient and she is feeling somewhat better. She still feels as if "her head wasn't quite attached to her body." Her blood pressure has improved, and she does not appear to be having any ill effects form her Norvasc. 1899: I checked on the patient and she is resting comfortably. Her blood pressure is high but she will follow up with her PCP on Saturday. 1930: Ordered Ativan Tab 0.5 mg SL. 1931: The patient is anxious but she is doing okay. 2024: I reevaluated the patient. Discussed results and discharge instructions: She verbalized understanding and agreement. The patient is ready for discharge. Medical Decision Triage Nursing notes reviewed. The patient's presentation and history were concerning for breathing difficulties. Etiologies such as pneumonia, COPD, reactive airway disease, CHF, cardiac ischemia, pulmonary embolism, pneumothorax, musculoskeletal, infections, gastrointestinal, as well as others were entertained. The patient is well known to the ER. She has a history of hypertension and medication issues. She states she is only taking Lopressor currently. She was given a xopenex treatment. The patient and I discussed antihypertensives and elected to try Norvasc 5mg as she stated clonidine was not effective for her any longer. The patient was reassessed and was doing better. Her blood pressure was improving. She was more relaxed and calm. She felt like she is breathing easier. She had unremarkable laboratory testing. Her chest x-ray and ECG were unremarkable as well. The patient did not have any adverse effects to the Norvasc. Allergic reactions were noted. I discussed continuing this as an outpatient and following up closely in the office. The patient agreed. She was trying to get in touch with her son for a ride home. She was unable to and then had a significant panic attack because she was afraid she would be left in the emergency department without a ride home. Her blood pressure increased. The patient was reassessed. I did give her 0.5 mg of sublingual Ativan. She was able to calm down and felt much better. Her hypertension dramatically improved. She was observed. She did well. She felt more comfortable and was stable for discharge. I did stress multiple times about the need for follow-up. The patient will be given a prescription for the Norvasc for the month so that she has time to get in to see her primary physician. The patient declined a MDI as she has had these in the past without any success. If she worsens in any way she will be back. Return instructions were outlined and she was discharged in stable condition.I gave my usual and customary discussion regarding this issue. Medication Reconciliation: I attest that I have personally reviewed the patient' s current medication list Blood pressure screening: Patient was found to have an elevated blood pressure and was referred to their primary doctor for recheck and further treatment. Impression Primary Impression: High blood pressure Additional Impressions: Shortness of breath Anxiety Scribe Attestation The scribe's documentation has been prepared under my direction and personally reviewed by me in its entirety. I confirm that the note above accurately reflects all work, treatment, procedures, and medical decision making performed by me. Departure Information Dispostion Home / Self-Care Prescriptions Amlodipine Besylate (NORVASC) 5 Mg Tab 5 MG PO DAILY for 30 Days, #30 TAB Prov: Bonifacio Bee MD 01/12/17 Referrals Maria Alejandra Gonzalez D.O. (PCP) Forms HOME CARE DOCUMENTATION FORM, IMPORTANT VISIT INFORMATION Patient Instructions My [facility] Additional Instructions Continue current medications. Start Norvasc (amlodipine) 5 mg. Take this once daily for blood pressure control. Review the package insert for all your medications. This is necessary as important health information is provided for your benefit and current care. Return to the ER for worsening lightheadedness, chest pain, difficulty breathing , fevers, vomiting, worsening of your condition, or as needed. Call your family doctor on Saturday for a follow-up appointment and blood pressure check. Additional medication management will be necessary by the primary office. Problem Qualifiers
== END 2017-01-12 19:58 | disposition home or self-care (01) ==
LOC: C.EDB 15:32
DX: I10 Essential (primary) hypertension (principal); R06.02 Shortness of breath; F41.9 Anxiety disorder, unspecified; F31.9 Bipolar disorder, unspecified; F20.9 Schizophrenia, unspecified; F17.200 Nicotine dependence, unspecified, uncomplicated; Z79.899 Other long term (current) drug therapy; Z88.0 Allergy status to penicillin; Z88.5 Allergy status to narcotic agent; Z88.6 Allergy status to analgesic agent; Z88.8 Allergy status to other drugs, medicaments and biological substances; Z80.9 Family history of malignant neoplasm, unspecified; Z83.3 Family history of diabetes mellitus; Z81.8 Family history of other mental and behavioral disorders; Z82.49 Family history of ischemic heart disease and other diseases of the circulatory system; Z82.3 Family history of stroke

== ENCOUNTER 2017-04-14 20:18 | Emergency (ER) | payer OTHER ==
[~2017-04-14] VITALS: Ht 157.5 cm; Wt 56.1 kg
[~2017-04-14 20:18] MED LIST changes: +CAL1CHW4 PO; +LORA-741 PO; +METO50TA17 PO; +MINEOIL PO; -RISP1TAB18 PO; +ULT50 PO
[2017-04-14 20:36] VITALS: TEMP 37.2; Ht 157.5 cm; Wt 56.1 kg
--- NOTE | 2017-04-14 22:01 | DIAGNOSTIC IMAGING REPORT ---
CHEST ONE VIEW PORTABLE CLINICAL HISTORY: EVALUATE ALTERED MENTAL STATUS/WEAKNESS dyspnea COMPARISON STUDY: 01/12/2017 FINDINGS: Slight chronic interstitial change left lung base. Lungs otherwise appear clear. No evidence for cardiac enlargement. Diaphragms smooth. IMPRESSION: Chronic change. No acute process. The above report was generated using voice recognition software. It may contain grammatical, syntax or spelling errors. Electronically signed by: Anuel Martinez M.D. 04/14/2017 10:00 PM Dictated Date/Time: 04/14/2017 10:00 PM
[2017-04-14] MEDS ORDERED: HydrALAZINE HCL 20 MG/ML VIAL IV. STA (22:09)
[2017-04-14] MEDS ORDERED: LORAZEPAM 2 MG/ML 1 ML VIAL IV STA (22:11)
[2017-04-14 22:51] LABS: BASO % 0.6 %; BASO ABS # 0.05 K/uL (0-0.2); COMPLETE YES; EOS % 3.7 %; HEMATOCRIT 42.5 % (37-47); IG% 0.2 %; LYMPH % 35.4 %; LYMPH ABS # 3.19 K/uL (1.2-3.4); MEAN CELL VOLUME 87.6 fL (80-100); MEAN CORPUSCULAR HEMOGLOBIN 30.5 pg (25-34); MEAN CORPUSCULAR HGB CONC 34.8 g/dl (32-36); MONO % 6.3 %; NEUT % 53.8 %; PLATELET COUNT 424 K/uL (130-400); RED BLOOD COUNT 4.85 M/uL (4.2-5.4); WHITE BLOOD COUNT 9.02 K/uL (4.8-10.8)
[2017-04-14 22:58] VITALS: O2SAT 99
[2017-04-14 23:00] LABS: PROTHROMBIN TIME (PATIENT) 10.4 SECONDS (9.0-12.0)
[2017-04-14 23:11] LABS: ALT/SGPT 33 U/L (12-78); AST/SGOT 16 U/L (15-37); BLOOD UREA NITROGEN 9 mg/dl (7-18); BUN/CREATININE RATIO 13.2 (10-20); CALCIUM 9.8 mg/dl (8.5-10.1); CARBON DIOXIDE 23 mmol/L (21-32); CHLORIDE 105 mmol/L (98-107); CREATININE 0.69 mg/dl (0.60-1.20); GLUCOSE 97 mg/dl (70-99); MAGNESIUM 2.1 mg/dl (1.8-2.4); POTASSIUM 3.8 mmol/L (3.5-5.1); SODIUM 136 mmol/L (136-145)
[2017-04-14 23:21] LABS: ALKALINE PHOSPHATASE 112 U/L (45-117); CKMB/CK RATIO 1.5 (0-3.0)
--- NOTE | 2017-04-14 23:51 | EMERGENCY ROOM VISIT NOTE ---
History Report prepared by Reynaldoibtammi: Elizabeth Marcos Under the Supervision of: Dr. Harpreet Sam D.O. First contact with patient: 21:41 Chief Complaint: HYPERTENSION Stated Complaint: HIGH BP, PAIN IN AB AREA,SON WORRIED-MENTAL HEALTH History of Present Illness The patient is a 66 year old female who presents to the Emergency Room with complaints of persistent hypertension. She complains of pain around her chest and back area as well as shortness of breath which she states is contributing to her hypertension. She reports she is also terrified of waking up and "not breathing". She states "I have been having things happen around me that I can't help react too". During these episodes she can "feel her blood pressure shoot up " and feels like her head "is going to explode". The patient has a history of hypertension and states she has been taking her blood pressure medicine as prescribed. She is accompanied by her son, who told Nursing staff he believes her issues are due to her history of manic depression and schizoaffective disorder. 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 A total of 10 systems reviewed and were otherwise negative. 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 (3) Tonsillectomy Family History Cancer MOTHER (Colon ) Diabetes mellitus FATHER Endocrine disorder SISTER (Thyroid) FH: mental illness SISTER Heart disease FATHER MOTHER Stroke Social History Smoking Status: Current Every Day Smoker Alcohol Use: none Drug Use: none Marital Status: Housing Status: lives alone Occupation Status: disabled Current/Historical Medications Scheduled Metoprolol Tartrate (Metoprolol Tartrate), 50 MG PO BID Mineral Oil (Mineral Oil), 15 ML PO DAILY Scheduled PRN Lorazepam (Ativan), 0.5 MG PO UD PRN for Anxiety Tramadol HCl (Tramadol HCl), 50 MG PO BID PRN for Pain Allergies Coded Allergies: Atropine (Verified Allergy, Severe, castillo, hard time breathing, 04/14/17) Diphenhydramine (Verified Allergy, Severe, "I ALMOST .", 04/14/17) Hyoscyamine (Verified Allergy, Severe, castillo, hard time breathing, 04/14/17) Labetalol (Verified Allergy, Severe, selling,loss of taste,itch, rash, 05/21) Phenobarbital (Verified Allergy, Severe, castillo, hard time breathing, 04/14/17) Prednisone (Verified Allergy, Severe, Edema face,lips and tongue., 04/14/17 ) Meticorten Scopolamine (Verified Allergy, Severe, castillo, hard time breathing, 04/14/17) Dicyclomine (Verified Allergy, Intermediate, GI SYMPTOMS, 04/14/17) Enoxaparin (Verified Allergy, Intermediate, RASH, 11/12/16) Levofloxacin (Verified Allergy, Intermediate, ARM TURNED "FIREY RED" WHEN INFUSED, CLEARED IN A FEW HOURS, 11/12/16) Tramadol (Verified Allergy, Intermediate, blisters all over, 11/12/16) Warfarin (Verified Allergy, Intermediate, rash, 11/12/16) Chlorpromazine (Verified Allergy, Mild, TOLERATING PROLIXIN AT HOME , 11/12/16) Penicillins (Verified Allergy, Mild, 11/12/16) Coumarin (Verified Allergy, Unknown, UNKNOWN, 11/12/16) Naproxen (Verified Allergy, Unknown, Unknown, 11/12/16) Nitrofurantoin (Verified Allergy, Unknown, hallucinating, 11/12/16) Morphine (Verified Adverse Reaction, Severe, SHOCK;TOLERATES DEMEROL, 11/12) ABLE TO TAKE DEMEROL WITHOUT DIFFICULTY Aspirin (Verified Adverse Reaction, Intermediate, BLEEDING, 11/12/16) Codeine (Verified Adverse Reaction, Intermediate, BP DROPS AND PASSES OUT, 11/12/16) Replaces CODEINE PHOSP Ibuprofen (Verified Adverse Reaction, Intermediate, BLEEDING, 11/12/16) Amitriptyline (Verified Adverse Reaction, Mild, Nausea/vomitimg, 11/12/16) Lisinopril (Verified Adverse Reaction, Mild, COUGH, 11/12/16) Physical Exam Vital Signs Date Time Temp Pulse Resp B/P (MAP) Pulse Ox O2 Delivery O2 Flow Rate FiO2 04/14/17 22:58 90 165/97 99 04/14/17 22:51 153/89 04/14/17 22:48 85 12 04/14/17 22:42 207/109 04/14/17 22:42 91 04/14/17 22:08 208/125 04/14/17 20:36 37.2 98 24 200/100 98 Room Air Physical Exam CONSTITUTIONAL/VITAL SIGNS: Reviewed / noted above. GENERAL: Non-toxic in appearance. INTEGUMENTARY: Warm, dry, and [place]. HEAD: Normocephalic. EYES: without scleral icterus or trauma. ENT/OROPHARYNX: clear and moist. LYMPHADENOPATHY/NECK: Is supple without lymphadenopathy or meningismus. RESPIRATORY: Lungs clear and equal. CARDIOVASCULAR: Regular rate and rhythm. GI/ABDOMEN: Soft and nontender. No organomegaly or pulsatile mass. No rebound or guarding. Normal bowel sounds. EXTREMITIES: Warm and well perfused. BACK: No CVA tenderness. NEUROLOGICAL: Intact without focal deficits. PSYCHIATRIC: normal affect. MUSCULOSKELETAL: Normally developed with good muscle tone. Medical Decision & Procedures ER Provider Diagnostic Interpretation: Radiology results as stated below per my review and radiologist interpretation: CHEST ONE VIEW PORTABLE CLINICAL HISTORY: EVALUATE ALTERED MENTAL STATUS/WEAKNESS dyspnea COMPARISON STUDY: 01/12/2017 FINDINGS: Slight chronic interstitial change left lung base. Lungs otherwise appear clear. No evidence for cardiac enlargement. Diaphragms smooth. IMPRESSION: Chronic change. No acute process. The above report was generated using voice recognition software. It may contain grammatical, syntax or spelling errors. Electronically signed by: Anuel Martinez M.D. 04/14/2017 10:[address] HEAD: Within limitation of patient motion, no definite evidence for intracranial hemorrhage or mass effect. Radiologist: Benton Reddy M.D. Laboratory Results 04/14/17 22:42 Red Blood Count 4.85, Mean Corpuscular Volume 87.6, Mean Corpuscular Hemoglobin 30.5, Mean Corpuscular Hemoglobin Concent 34.8, Mean Platelet Volume 9.0, Neutrophils (%) (Auto) 53.8, Lymphocytes (%) (Auto) 35.4, Monocytes (%) (Auto) 6.3, Eosinophils (%) (Auto) 3.7, Basophils (%) (Auto) 0.6, Neutrophils # (Auto) 4.86, Lymphocytes # (Auto) 3.19, Monocytes # (Auto) 0.57, Eosinophils # (Auto) 0.33, Basophils # (Auto) 0.05 04/14/17 22:42 Test 04/14/17 22:42 White Blood Count 9.02 K/uL (4.8-10.8) Red Blood Count 4.85 M/uL (4.2-5.4) Hemoglobin 14.8 g/dL (12.0-16.0) Hematocrit 42.5 % (37-47) Mean Corpuscular Volume 87.6 fL (80-100) Mean Corpuscular Hemoglobin 30.5 pg (25-34) Mean Corpuscular Hemoglobin Concent 34.8 g/dl (32-36) Platelet Count 424 K/uL (130-400) Mean Platelet Volume 9.0 fL (7.4-10.4) Neutrophils (%) (Auto) 53.8 % Lymphocytes (%) (Auto) 35.4 % Monocytes (%) (Auto) 6.3 % Eosinophils (%) (Auto) 3.7 % Basophils (%) (Auto) 0.6 % Neutrophils # (Auto) 4.86 K/uL (1.4-6.5) Lymphocytes # (Auto) 3.19 K/uL (1.2-3.4) Monocytes # (Auto) 0.57 K/uL (0.11-0.59) Eosinophils # (Auto) 0.33 K/uL (0-0.5) Basophils # (Auto) 0.05 K/uL (0-0.2) RDW Standard Deviation 45.0 fL (36.4-46.3) RDW Coefficient of Variation 14.1 % (11.5-14.5) Immature Granulocyte % (Auto) 0.2 % Immature Granulocyte # (Auto) 0.02 K/uL (0.00-0.02) Prothrombin Time 10.4 SECONDS (9.0-12.0) Prothromb Time International Ratio 1.0 (0.9-1.1) Activated Partial Thromboplast Time 27.1 SECONDS (21.0-31.0) Partial Thromboplastin Ratio 1.0 Anion Gap 8.0 mmol/L (3-11) Est Creatinine Clear Calc Drug Dose 65.2 ml/min Estimated GFR () 106.6 Estimated GFR (Non- 92.0 BUN/Creatinine Ratio 13.2 (10-20) Calcium Level 9.8 mg/dl (8.5-10.1) Magnesium Level 2.1 mg/dl (1.8-2.4) Total Bilirubin 0.4 mg/dl (0.2-1) Direct Bilirubin < 0.1 mg/dl (0-0.2) Aspartate Amino Transf (AST/SGOT) 16 U/L (15-37) Alanine Aminotransferase (ALT/SGPT) 33 U/L (12-78) Alkaline Phosphatase 112 U/L (45-117) Total Creatine Kinase 89 U/L (26-192) Creatine Kinase MB 1.3 ng/ml (0.5-3.6) Creatine Kinase MB Ratio 1.5 (0-3.0) Troponin I < 0.015 ng/ml (0-0.045) Total Protein 8.0 gm/dl (6.4-8.2) Albumin 4.3 gm/dl (3.4-5.0) Lipase 447 U/L (73-393) Thyroid Stimulating Hormone (TSH) 1.080 uIu/ml (0.300-4.500) Laboratory results as stated above per my review. Medications Administered Medications (Trade) Dose Ordered Sig/Thiago Route Start Time Stop Time Status Last Admin Dose Admin Hydralazine HCl (HydrALAZINE INJ) 10 mg NOW STAT IV. 04/14/17 22:09 04/14/17 22:10 DC 04/14/17 22:32 10 MG Lorazepam (Ativan Inj) 1 mg NOW STAT IV 04/14/17 22:11 04/14/17 22:12 DC 04/14/17 22:32 1 MG ECG Indication: other (hypertension) Rate (beats per minute): 91 Rhythm: normal sinus Findings: no acute ischemic change, no ectopy ED Course 2200: Previous medical records were reviewed. The patient was evaluated in room B8. A complete history and physical examination was performed. 2208: Hydralazine HCl 10 mg IV. 2210: Ativan 1 mg IV. 2355: I reevaluated the patient. She is feeling well and resting comfortably. I discussed her results and discharge instructions and she verbalized complete understanding and agreement. Medical Decision Etiologies such as benign hypertension, hypertensive emergency, cardiovascular pathology, pheochromocytoma, electrolyte abnormality, renal disease, endorgan damage and anxiety. This is a year-old female who presents to the ED with a chief complaint of hypertension. The patient has been feeling anxious recently. She reported some chest discomfort and a fear that she is going to stop breathing when she goes to sleep. She states that she occasionally has some panic attacks. She is brought in by her son for evaluation. She denies any headaches. No abdominal pains. No fevers or recent illness. She has been taking her medication. Her blood pressure initially was elevated at 200/100. Physical exam was unremarkable. She seems to be somewhat anxious. Twelve-lead EKG shows a normal sinus rhythm. CBC is normal, complete metabolic panel is normal. Chest x-ray did not show acute disease. Troponin is negative. TSH is normal. A CT scan of the brain did not show acute disease. The patient was treated with Ativan 1 mg by mouth as well as hydralazine 10 mg IV. On reassessment, she is feeling better. Her blood pressure improved. She is felt to be stable for discharge. Medication Reconcilliation Current Medication List: was personally reviewed by me Blood Pressure Screening Patient's blood pressure: Elevated blood pressure Blood pressure disposition: Referred to PCP Impression Primary Impression: Hypertension Additional Impression: Anxiety Scribe Attestation The scribe's documentation has been prepared under my direction and personally reviewed by me in its entirety. I confirm that the note above accurately reflects all work, treatment, procedures, and medical decision making performed by me. Departure Information Dispostion Home / Self-Care Referrals No Doctor, Assigned (PCP) Patient Instructions My [facility] Additional Instructions Follow-up with your doctor for further care and evaluation in 1-2 days. Return to the emergency department for worsening or new symptoms or any concerns. You have been examined and treated today on an emergency basis only. This is not a substitute for, or an effort to provide, complete comprehensive medical care. It is impossible to recognize and treat all injuries or illnesses in a single emergency department visit. It is therefore important that you follow up closely with your doctor. Call as soon as possible for an appointment. See your doctor this week for recheck of your blood pressure. Problem Qualifiers
[2017-04-15 00:01] VITALS: BP 147/98
[2017-04-15 00:03] VITALS: PULSE 96
--- NOTE | 2017-04-15 06:30 | DIAGNOSTIC IMAGING REPORT ---
CT HEAD WITHOUT CONTRAST (CT) CLINICAL HISTORY: Altered mental status. Weakness. COMPARISON STUDY: 11/07/2016 TECHNIQUE: Axial CT of the brain is performed from the vertex to the skull base. IV contrast was not administered for this examination. A dose lowering technique was utilized adhering to the principles of ALARA. CT DOSE: 537.48 mGy.cm FINDINGS: No intra or extra-axial mass lesions are visualized. There is no CT evidence of acute cortical infarction. There is no evidence of midline shift. There is no acute hemorrhage. No calvarial fractures are visualized. There are minimal white matter hypodensities likely on a small vessel basis. 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 There is no evidence of pathologic ventricular dilatation. There is no evidence of acute sinusitis IMPRESSION: No acute intracranial findings Electronically signed by: Sergio Ocampo M.D. 04/15/2017 6:28 AM Dictated Date/Time: 04/15/2017 6:27 AM
== END 2017-04-15 00:22 | disposition home or self-care (01) ==
LOC: C.EDB 20:20
DX: I10 Essential (primary) hypertension (principal); F41.9 Anxiety disorder, unspecified; F31.9 Bipolar disorder, unspecified; F43.10 Post-traumatic stress disorder, unspecified; F25.9 Schizoaffective disorder, unspecified; R06.02 Shortness of breath; Z83.3 Family history of diabetes mellitus; Z82.49 Family history of ischemic heart disease and other diseases of the circulatory system; Z82.3 Family history of stroke; F17.200 Nicotine dependence, unspecified, uncomplicated

== ENCOUNTER 2017-08-23 00:46 | Emergency (ER) | payer OTHER ==
[~2017-08-23] VITALS: Ht 157.5 cm; Wt 52.4 kg
[2017-08-23 00:46] VITALS: O2SAT 100; Ht 157.5 cm; Wt 52.4 kg
[~2017-08-23 00:46] MED LIST changes: -CAL1CHW4 PO
[2017-08-23] MEDS ORDERED: FAMOTIDINE 20MG/5ML IV PUSH IV STA (02:00)
--- NOTE | 2017-08-23 02:22 | EMERGENCY ROOM VISIT NOTE ---
History Report prepared by Gosia: Jalen Ellis Under the Supervision of: Dr. Geno Llamas D.O. First contact with patient: 01:35 Chief Complaint: CHEST PAIN Stated Complaint: CHEST PAIN Nursing Triage Summary: Pt difficult to understand due to speaking in whispers and broken sentences due to "pain". Pt reporting multiple complaints. Pt reports chest tightness but unable to tell RN when it started. Pt also reporting abdominal pain in mid abdomen that radiates to left flank. Pt states "I always have this pain but tonight it worse and happens after I eat". Pt states that after she eats she sometimes gets diaphoretic and passess out. Pt also reports 10/10 pain with swallowing. Pt also complaining of headache and bright red blood with bowel movements. Declined IV start in ambulance reporting "IV team has to get it". History of Present Illness The patient is a 66 year old female who presents to the Emergency Room with complaints of centralized burning chest pain that began recently. She rates her pain a 10/10 in severity. She has a past medical history of COPD and IBS. She states that she has a long history of chronic burning chest/abdominal pain associated with eating. She feels this pain is similar to her past episodes of pain, however they feel significantly worse. Her pain is exacerbated with breathing and is making her feel short of breath. Her pain is radiating into her back. She states that along with the burning pain, she also feels a pressure like pain to the areas as well. 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 However, she told nursing staff that she had a bloody bowel movement prior to arrival. She is also experiencing a headache with globalized muscle cramping. She notes increased gas production with occasional diaphoresis and loss of consciousness. She still has her gallbladder. Patient noted to not be in any distress until asked about it in the room. Also of note patient appeared to have brought with her to langtaojin's full close as well as a large dave bear. Source of History: patient Onset: recently Position: chest (centralized) Symptom Intensity: 10/10 Quality: pressure, burning Timing: worsening Modifying Factors (Worsening): eating Associated Symptoms: + LOC, + headache, + diaphoresis, + SOB, + abdominal pain Note: She is experiencing muscle cramps and constipation. She also claimed to have a bloody bowel movement prior to arrival. Review of Systems See HPI for pertinent positives & negatives. A total of 10 systems reviewed and were otherwise negative. 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 (3) Tonsillectomy Family History Cancer MOTHER (Colon ) Diabetes mellitus FATHER Endocrine disorder SISTER (Thyroid) FH: mental illness SISTER Heart disease FATHER MOTHER Stroke Social History Smoking Status: Current Every Day Smoker Alcohol Use: none Drug Use: none Marital Status: Housing Status: lives alone Occupation Status: disabled Current/Historical Medications Scheduled Metoprolol Tartrate (Metoprolol Tartrate), 50 MG PO BID Mineral Oil (Mineral Oil), 15 ML PO DAILY Allergies Coded Allergies: Atropine (Verified Allergy, Severe, castillo, hard time breathing, 08/23/17) Diphenhydramine (Verified Allergy, Severe, "I ALMOST .", 08/23/17) Hyoscyamine (Verified Allergy, Severe, castillo, hard time breathing, 08/23/17) Labetalol (Verified Allergy, Severe, selling,loss of taste,itch, rash, ) Phenobarbital (Verified Allergy, Severe, castillo, hard time breathing, 08/23/17) Prednisone (Verified Allergy, Severe, Edema face,lips and tongue., 08/23/17 ) Meticorten Scopolamine (Verified Allergy, Severe, castillo, hard time breathing, 08/23/17) Dicyclomine (Verified Allergy, Intermediate, GI SYMPTOMS, 08/23/17) Enoxaparin (Verified Allergy, Intermediate, RASH, 08/23/17) Levofloxacin (Verified Allergy, Intermediate, ARM TURNED "FIREY RED" WHEN INFUSED, CLEARED IN A FEW HOURS, 08/23/17) Tramadol (Verified Allergy, Intermediate, blisters all over, 08/23/17) Warfarin (Verified Allergy, Intermediate, rash, 08/23/17) Chlorpromazine (Verified Allergy, Mild, TOLERATING PROLIXIN AT HOME , 08/23/17) Penicillins (Verified Allergy, Mild, 08/23/17) Coumarin (Verified Allergy, Unknown, UNKNOWN, 08/23/17) Naproxen (Verified Allergy, Unknown, Unknown, 08/23/17) Nitrofurantoin (Verified Allergy, Unknown, hallucinating, 08/23/17) Morphine (Verified Adverse Reaction, Severe, SHOCK;TOLERATES DEMEROL, 08/23) ABLE TO TAKE DEMEROL WITHOUT DIFFICULTY Aspirin (Verified Adverse Reaction, Intermediate, BLEEDING, 08/23/17) Codeine (Verified Adverse Reaction, Intermediate, BP DROPS AND PASSES OUT, 08/23/17) Replaces CODEINE PHOSP Ibuprofen (Verified Adverse Reaction, Intermediate, BLEEDING, 08/23/17) Amitriptyline (Verified Adverse Reaction, Mild, Nausea/vomitimg, 08/23/17) Lisinopril (Verified Adverse Reaction, Mild, COUGH, 08/23/17) Physical Exam Vital Signs Date Time Temp Pulse Resp B/P (MAP) Pulse Ox O2 Delivery O2 Flow Rate FiO2 08/23/17 05:51 90 18 99 08/23/17 05:01 74 14 98 08/23/17 05:00 129/84 08/23/17 04:46 81 97 08/23/17 04:31 80 13 125/81 100 08/23/17 04:26 86 17 174/104 100 Room Air 08/23/17 04:03 76 08/23/17 03:56 77 20 08/23/17 03:41 82 15 08/23/17 03:11 79 16 98 Room Air 08/23/17 02:56 82 14 08/23/17 02:41 79 18 08/23/17 02:36 75 22 98 08/23/17 02:06 80 18 97 08/23/17 02:01 157/92 08/23/17 01:46 90 16 100 08/23/17 01:13 161/84 08/23/17 00:49 220/108 08/23/17 00:46 76 20 220/108 100 Room Air 08/23/17 00:46 100 Room Air 08/23/17 00:46 100 Room Air Physical Exam GENERAL: alert, anxious appearing, well nourished, no distress, non-toxic EYE EXAM: normal conjunctiva, PERRL and EOM's grossly intact OROPHARYNX: no exudate, no erythema, lips, buccal mucosa, and tongue normal and mucous membranes are mildly dry NECK: supple, no nuchal rigidity, no adenopathy, non-tender LUNGS: Clear to auscultation. Normal chest wall mechanics HEART: no murmurs, S1 normal and S2 normal ABDOMEN: abdomen soft, mild epigastric tenderness with palpation, normo-active bowel sounds, no masses, no rebound or guarding. BACK: Back is symmetrical on inspection and there is no deformity, no midline tenderness, no CVA tenderness. SKIN: no rashes and no bruising UPPER EXTREMITIES: upper extremities are grossly normal. LOWER EXTREMITIES: No pitting edema. NEURO EXAM: Normal sensorium, cranial nerves II-XII grossly intact, normal speech, no gross weakness of arms, no gross weakness of legs. Medical Decision & Procedures ER Provider Diagnostic Interpretation: Radiology results have been interpreted by me. 1 VIEW CHEST X-RAY: No cardiomegaly, no effusion, no widened mediastinum, no focal infiltrate, no pneumothorax Laboratory Results 08/23/17 02:47 Red Blood Count 4.95, Mean Corpuscular Volume 90.5, Mean Corpuscular Hemoglobin 32.3, Mean Corpuscular Hemoglobin Concent 35.7, Mean Platelet Volume 9.4, Neutrophils (%) (Auto) 63.2, Lymphocytes (%) (Auto) 28.1, Monocytes (%) (Auto) 6.7, Eosinophils (%) (Auto) 1.3, Basophils (%) (Auto) 0.5, Neutrophils # (Auto) 6.27, Lymphocytes # (Auto) 2.79, Monocytes # (Auto) 0.67, Eosinophils # (Auto) 0.13, Basophils # (Auto) 0.05 08/23/17 02:47 Test 08/23/17 02:47 White Blood Count 9.93 K/uL (4.8-10.8) Red Blood Count 4.95 M/uL (4.2-5.4) Hemoglobin 16.0 g/dL (12.0-16.0) Hematocrit 44.8 % (37-47) Mean Corpuscular Volume 90.5 fL (80-100) Mean Corpuscular Hemoglobin 32.3 pg (25-34) Mean Corpuscular Hemoglobin Concent 35.7 g/dl (32-36) Platelet Count 386 K/uL (130-400) Mean Platelet Volume 9.4 fL (7.4-10.4) Neutrophils (%) (Auto) 63.2 % Lymphocytes (%) (Auto) 28.1 % Monocytes (%) (Auto) 6.7 % Eosinophils (%) (Auto) 1.3 % Basophils (%) (Auto) 0.5 % Neutrophils # (Auto) 6.27 K/uL (1.4-6.5) Lymphocytes # (Auto) 2.79 K/uL (1.2-3.4) Monocytes # (Auto) 0.67 K/uL (0.11-0.59) Eosinophils # (Auto) 0.13 K/uL (0-0.5) Basophils # (Auto) 0.05 K/uL (0-0.2) RDW Standard Deviation 45.8 fL (36.4-46.3) RDW Coefficient of Variation 14.0 % (11.5-14.5) Immature Granulocyte % (Auto) 0.2 % Immature Granulocyte # (Auto) 0.02 K/uL (0.00-0.02) Prothrombin Time 10.4 SECONDS (9.0-12.0) Prothromb Time International Ratio 1.0 (0.9-1.1) Anion Gap 8.0 mmol/L (3-11) Est Creatinine Clear Calc Drug Dose 56.9 ml/min Estimated GFR () 91.7 Estimated GFR (Non- 79.1 BUN/Creatinine Ratio 12.2 (10-20) Calcium Level 9.3 mg/dl (8.5-10.1) Magnesium Level 2.2 mg/dl (1.8-2.4) Total Bilirubin 0.6 mg/dl (0.2-1) Aspartate Amino Transf (AST/SGOT) 13 U/L (15-37) Alanine Aminotransferase (ALT/SGPT) 33 U/L (12-78) Alkaline Phosphatase 105 U/L (45-117) Troponin I < 0.015 ng/ml (0-0.045) Total Protein 8.3 gm/dl (6.4-8.2) Albumin 4.2 gm/dl (3.4-5.0) Globulin 4.1 gm/dl (2.5-4.0) Albumin/Globulin Ratio 1.0 (0.9-2) Lipase 283 U/L (73-393) Carbamazepine (Tegretol) Level < 0.5 mcg/ml (4-12) Laboratory results per my review. Medications Administered Medications (Trade) Dose Ordered Sig/Thiago Route Start Time Stop Time Status Last Admin Dose Admin Al Hydroxide/Mg Hydroxide (Maalox Susp) 30 ml STK-MED ONCE .ROUTE 08/23/17 05:47 08/23/17 05:48 DC 08/23/17 05:53 30 ML Lidocaine HCl (Viscous Lidocaine 2% Soln) 20 ml STK-MED ONCE .ROUTE 08/23/17 05:47 08/23/17 05:48 DC 08/23/17 05:53 20 ML ECG Indication: chest pain Rate (beats per minute): 78 Rhythm: sinus rhythm Findings: no acute ischemic change, no ectopy, other (normal intervals, normal axis) Comparison ECG Date: 13 Jun 2017 Change: no significant change ED Course 0135: The patient was evaluated in room B5. A complete history and physical exam was performed. 0200: Ordered Famotidine 20 mg IV 0541: Ordered Gi Cocktail 24 ml PO 0628: Upon reevaluation, the patient is feeling better. I discussed the findings and the treatment plan with the patient. She verbalizes agreement and understanding. She was discharged home. Medical Decision Differential diagnosis: Etiologies such as cardiac ischemia, aortic dissection, pulmonary embolism, pneumonia, pneumothorax, musculoskeletal, infections, pericarditis, myocarditis , esophageal rupture, gastrointestinal, appendicitis, diverticulitis, PUD, biliary pathology, UTI, pancreatitis, obstruction, mesenteric ischemia, infections, inflammatory bowel disease, renal colic, as well as others were entertained. Pt well known to the ER, here previously with similar complaints. Complaints chronic in nature. On review of EMR, pt with multiple CT's/xrays/US previously. Pt requested GI cocktail and then requested to leave. Given chronicity of complaints and stable appearing labs and VS, I did not feel pt warranted repeat CT. Discussed with pt f/u with her PCP and possible GI evaluation. Discussed sx to watch/return for, she verbalized understanding and was agreeable with plan. Medication Reconcilliation Current Medication List: was personally reviewed by me Blood Pressure Screening Patient's blood pressure: Normal blood pressure Blood pressure disposition: Did not require urgent referral Impression Primary Impression: Chest pain Additional Impressions: Epigastric pain Chronic pain Anxiety Scribe Attestation The scribe's documentation has been prepared under my direction and personally reviewed by me in its entirety. I confirm that the note above accurately reflects all work, treatment, procedures, and medical decision making performed by me. Departure Information Dispostion Home / Self-Care Referrals Maria Alejandra Gonzalez D.O. (PCP) Forms Call Back Authorization, HOME CARE DOCUMENTATION FORM, IMPORTANT VISIT INFORMATION Patient Instructions My [facility] Additional Instructions Please continue regular medications as prescribed. Please consider close follow -up with your family doctor and a GI doctor. Please avoid additional acidity in your diet as this could be contributing to your abdominal pain, this includes alcohol, coffee, soda, tomato-based products, and citrus fruits. If you have any recurrent episodes of pain, develop vomiting, fevers, noticed black or bloody stools, or you've any other new concerns, please return the emergency room. Problem Qualifiers Primary Impression: Chest pain Chest pain type: unspecified Qualified Codes: R07.9 - Chest pain, unspecified Additional Impressions: Chronic pain Chronic pain type: other chronic pain Qualified Codes: G89.29 - Other chronic pain
[2017-08-23 03:18] LABS: ALBUMIN 4.2 gm/dl (3.4-5.0); ALT/SGPT 33 U/L (12-78); AST/SGOT 13 U/L (15-37); BASO % 0.5 %; BASO ABS # 0.05 K/uL (0-0.2); BLOOD UREA NITROGEN 10 mg/dl (7-18); CALCIUM 9.3 mg/dl (8.5-10.1); CARBON DIOXIDE 24 mmol/L (21-32); CREATININE 0.79 mg/dl (0.60-1.20); EOS % 1.3 %; EOS ABS # 0.13 K/uL (0-0.5); GLUCOSE 94 mg/dl (70-99); HEMATOCRIT 44.8 % (37-47); IG# 0.02 K/uL (0.00-0.02); LIPASE 283 U/L (73-393); LYMPH % 28.1 %; LYMPH ABS # 2.79 K/uL (1.2-3.4); MEAN CELL VOLUME 90.5 fL (80-100); MEAN CORPUSCULAR HEMOGLOBIN 32.3 pg (25-34); MEAN CORPUSCULAR HGB CONC 35.7 g/dl (32-36); MEAN PLATELET VOLUME 9.4 fL (7.4-10.4); MONO % 6.7 %; MONO ABS # 0.67 K/uL (0.11-0.59); NEUT % 63.2 %; NEUT ABS # 6.27 K/uL (1.4-6.5); PLATELET COUNT 386 K/uL (130-400); POTASSIUM 3.8 mmol/L (3.5-5.1); RED CELL DISTRIBUTION WIDTH SD 45.8 fL (36.4-46.3); SODIUM 130 mmol/L (136-145); WHITE BLOOD COUNT 9.93 K/uL (4.8-10.8)
[2017-08-23 03:24] LABS: ALKALINE PHOSPHATASE 105 U/L (45-117); TOTAL PROTEIN 8.3 gm/dl (6.4-8.2)
[2017-08-23 05:00] VITALS: BP 129/84
[2017-08-23] MEDS ORDERED: GI COCKTAIL PO STA (05:41)
[2017-08-23] MEDS ORDERED: ALUMINUM/MAGNESIUM SUSP 30 ML UDC ONE (05:47)
[2017-08-23] MEDS ORDERED: LIDOCAINE HCL 2% VISC SOLN 20 ML UDC ONE (05:47)
[2017-08-23 05:51] VITALS: PULSE 90; O2SAT 99
--- NOTE | 2017-08-23 06:43 | DIAGNOSTIC IMAGING REPORT ---
CHEST ONE VIEW PORTABLE CLINICAL HISTORY: Atypical chest pain COMPARISON STUDY: 06/13/2017 FINDINGS: The cardiac and mediastinal contours are normal. There is no evidence of focal pulmonary consolidation. There is no evidence of failure. No pleural effusions are visualized.[ IMPRESSION: No active disease in the chest. Electronically signed by: Sergio Ocampo M.D. 08/23/2017 6:41 AM Dictated Date/Time: 08/23/2017 6:41 AM
== END 2017-08-23 06:21 | disposition home or self-care (01) ==
LOC: EDBD 00:46 → C.EDB 00:47
DX: R07.9 Chest pain, unspecified (principal); R10.13 Epigastric pain; G89.29 Other chronic pain; F41.9 Anxiety disorder, unspecified; J44.9 Chronic obstructive pulmonary disease, unspecified; K58.9 Irritable bowel syndrome, unspecified; F31.9 Bipolar disorder, unspecified; I10 Essential (primary) hypertension; Z86.718 Personal history of other venous thrombosis and embolism; F43.11 Post-traumatic stress disorder, acute; F25.9 Schizoaffective disorder, unspecified; F17.210 Nicotine dependence, cigarettes, uncomplicated; Z80.9 Family history of malignant neoplasm, unspecified; Z83.3 Family history of diabetes mellitus; Z82.49 Family history of ischemic heart disease and other diseases of the circulatory system

== ENCOUNTER 2017-09-02 13:44 | Inpatient (IN) | payer OTHER ==
[~2017-09-02] VITALS: Ht 157.5 cm; Wt 50.2 kg
[~2017-09-02 13:44] MED LIST changes: -LORA-741 PO; -ULT50 PO
[2017-09-02] MEDS ORDERED: LEVALBUTEROL 1.25MG/3ML NEB INH STA (14:29)
[2017-09-02] MEDS ORDERED: LORAZEPAM 2 MG/ML 1 ML VIAL IV STA (14:49)
--- NOTE | 2017-09-02 14:49 | EMERGENCY ROOM VISIT NOTE ---
History First contact with patient: 14:03 Chief Complaint: SHORTNESS OF BREATH Stated Complaint: SHORTNESS OF BREATH History of Present Illness The patient is a 66 year old female w/ h/o HTN, h/o COPD with multiple previous ED visits for COPD exacerbation, DVT with IVC filter who presents to the Emergency Room with complaints of Acute progressive SOB with chest central chest tightness that started approximately 12 PM today. Chest tightness is central, pleuritic, unrelated with exertion. Patient reports she is not taking an inhaler because it they have caused her tachycardia in the past, She also reports lightheadedness, blurry vision,anxiety .She denies fevers, cough, n/v, diaphoresis, calf tenderness, on LE swelling. Patient is not on Home Oxygen. Review of Systems Pt denies headache, fevers, nausea, vomiting, diarrhea, pain with urination, and melena. Refer to HPI for positive symptoms Past Medical/Surgical History Medical Problems: (1) Alcohol abuse (2) Anxiety (3) Benign hypertension (4) Bipolar disorder (5) Chest pain (6) Chronic pelvic pain of female (7) Deep venous thrombosis (8) Drug abuse (9) Hypertensive urgency (10) IBS (11) IVC filter (12) Posttraumatic stress disorder (13) Schizoaffective disorder (14) Suicide attempt (15) Tobacco abuse (16) UGI bleed Surgical Problems: (1) Cystoscopy (2) h/o inferior vena cava filter placement (3) Tonsillectomy Family History Cancer MOTHER (Colon ) Diabetes mellitus FATHER Endocrine disorder SISTER (Thyroid) FH: mental illness SISTER Heart disease FATHER MOTHER Stroke Social History Smoking Status: Current Every Day Smoker Alcohol Use: none Drug Use: none Marital Status: Housing Status: lives alone Occupation Status: disabled Current/Historical Medications Scheduled Metoprolol Tartrate (Metoprolol Tartrate), 50 MG PO BID Physical Exam Vital Signs Date Time Temp Pulse Resp B/P (MAP) Pulse Ox O2 Delivery O2 Flow Rate FiO2 09/02/17 20:16 76 20 159/84 97 09/02/17 19:30 75 20 154/88 98 Room Air 09/02/17 19:04 64 09/02/17 18:48 78 20 152/105 98 Room Air 09/02/17 16:02 87 20 168/85 97 Room Air 09/02/17 15:29 99 Room Air 09/02/17 15:18 77 16 98 Room Air 09/02/17 14:05 87 09/02/17 13:58 36.6 93 20 179/120 100 Room Air Physical Exam GENERAL: alert,thin anxious ,moderate distress, EYE EXAM: PERRL and EOM's grossly intact NECK: supple, no nuchal rigidity, no adenopathy, non-tender LUNGS: Clear to auscultation. dec'd air entry bilaterally Normal chest wall mechanics HEART: no murmurs, S1 normal and S2 normal SKIN: no rashes and no bruising LOWER EXTREMITIES: No pitting edema. NO calf tenderness NEURO EXAM: AOx3 cranial nerves II-XII grossly intact, normal speech, no gross weakness of arms, no gross weakness of legs. Medical Decision & Procedures Laboratory Results 09/02/17 16:37 Red Blood Count 4.80, Mean Corpuscular Volume 90.6, Mean Corpuscular Hemoglobin 32.7, Mean Corpuscular Hemoglobin Concent 36.1, Mean Platelet Volume 9.2, Neutrophils (%) (Auto) 56.3, Lymphocytes (%) (Auto) 32.3, Monocytes (%) (Auto) 8.7, Eosinophils (%) (Auto) 1.9, Basophils (%) (Auto) 0.6, Neutrophils # (Auto) 5.05, Lymphocytes # (Auto) 2.89, Monocytes # (Auto) 0.78, Eosinophils # (Auto) 0.17, Basophils # (Auto) 0.05 09/02/17 16:37 Test 09/02/17 16:37 White Blood Count 8.96 K/uL (4.8-10.8) Red Blood Count 4.80 M/uL (4.2-5.4) Hemoglobin 15.7 g/dL (12.0-16.0) Hematocrit 43.5 % (37-47) Mean Corpuscular Volume 90.6 fL (80-100) Mean Corpuscular Hemoglobin 32.7 pg (25-34) Mean Corpuscular Hemoglobin Concent 36.1 g/dl (32-36) Platelet Count 358 K/uL (130-400) Mean Platelet Volume 9.2 fL (7.4-10.4) Neutrophils (%) (Auto) 56.3 % Lymphocytes (%) (Auto) 32.3 % Monocytes (%) (Auto) 8.7 % Eosinophils (%) (Auto) 1.9 % Basophils (%) (Auto) 0.6 % Neutrophils # (Auto) 5.05 K/uL (1.4-6.5) Lymphocytes # (Auto) 2.89 K/uL (1.2-3.4) Monocytes # (Auto) 0.78 K/uL (0.11-0.59) Eosinophils # (Auto) 0.17 K/uL (0-0.5) Basophils # (Auto) 0.05 K/uL (0-0.2) RDW Standard Deviation 46.3 fL (36.4-46.3) RDW Coefficient of Variation 14.0 % (11.5-14.5) Immature Granulocyte % (Auto) 0.2 % Immature Granulocyte # (Auto) 0.02 K/uL (0.00-0.02) Prothrombin Time 10.7 SECONDS (9.0-12.0) Prothromb Time International Ratio 1.0 (0.9-1.1) Activated Partial Thromboplast Time 26.9 SECONDS (21.0-31.0) Partial Thromboplastin Ratio 1.0 Anion Gap 9.0 mmol/L (3-11) Est Creatinine Clear Calc Drug Dose 58.4 ml/min Estimated GFR () 94.6 Estimated GFR (Non- 81.6 BUN/Creatinine Ratio 11.8 (10-20) Calcium Level 9.8 mg/dl (8.5-10.1) Troponin I < 0.015 ng/ml (0-0.045) Medications Administered Medications (Trade) Dose Ordered Sig/Thiago Route Start Time Stop Time Status Last Admin Dose Admin Levalbuterol (Xopenex 1.25MG/ 3ML Neb) 1.25 mg ONE STAT INH 09/02/17 14:29 09/02/17 14:40 DC 09/02/17 14:29 1.25 MG Metoprolol Tartrate (Lopressor Tab) 50 mg NOW STAT PO 09/02/17 15:03 09/02/17 15:04 DC 09/02/17 16:29 50 MG Lorazepam (Ativan Tab) 0.5 mg NOW STAT PO 09/02/17 15:55 09/02/17 15:57 DC 09/02/17 16:29 0.5 MG Heparin Sodium/ Dextrose 1 ea NOW STAT N/A 09/02/17 18:42 09/02/17 18:45 DC 09/02/17 18:42 1 EA Heparin Sodium/ Dextrose (Heparin 25,000 Unit/500ml D5W) 25,000 unit STK-MED ONCE .ROUTE 09/02/17 19:33 09/02/17 19:34 DC 09/02/17 19:48 25,000 UNIT Heparin Sodium (Porcine) (Heparin Sq 5000 Unit/0.5ml) 5,000 unit STK-MED ONCE .ROUTE 09/02/17 19:33 09/02/17 19:34 DC 09/02/17 19:46 3,000 UNIT Medical Decision 66 yo F with known history of HTN, COPD, multiple ED visits for COPD exacerbation, presenting with SOB and pleuritic Chest tightness very similar to previous presentations. BP elevated on Arrival was 179/120. Patient had decreased air entry bilaterally on arrival with normal pulse oximetry. Differential diagnoses includes but is not limited to acute coronary syndrome, myocardial infarction, pericarditis, pulmonary embolus, aortic dissection, pneumonia, pneumothorax, musculoskeletal, shingles, esophageal. CXR: no significant changes compared to prior study, no acute process. EKG: NSR, no ischemic or ectopy CBC: unremarkable Troponin: negative Joel Le Doppler: Left calf DVT involving one of the 2 peroneal veins, Fibrin stranding within the left common femoral and superficial femoral veins, likely chronic Given .5 mg Ativan Given Xopenex 1.5 INH Given 50 mg Metoprolol PO Given patient's history of DVT's /IVC filter and presentation with pleuritic Chest pain, Doppler U/S was performed which was LLE DVT. P.E. cannot be ruled out despite lack of tachycardia or hypoxia. Patient only has 24 gauge access making due to difficulty gaining IV access therefore making CT with PE protocols difficult. She was placed on IV heparin. Patient will likely need a VQ scan which can only be performed during admission. I discussed the findings and the treatment plan with the patient. Patient expresses agreement and understanding. Case was discussed with [facility]. She will be evaluated for further management. Impression Primary Impression: SOB (shortness of breath) Additional Impression: DVT (deep venous thrombosis) Departure Information Dispostion Admitted as an inpatient Condition FAIR Referrals Maria Alejandra Gonzalez D.O. (PCP) Patient Instructions My [facility] Resident Tracking Resident Involvement: Resident Care Provided Care Provided: Adult ED Problem Qualifiers
--- NOTE | 2017-09-02 15:01 | DIAGNOSTIC IMAGING REPORT ---
CHEST ONE VIEW PORTABLE HISTORY: Short of breath. COMPARISON: Chest 08/23/2017. FINDINGS: The lungs are clear. The heart is normal in size. Old, healed left lower rib fractures. No pleural effusions. No pneumothorax. An IVC filter is noted. IMPRESSION: No significant change compared to the prior study. No acute process. Electronically signed by: Montrell Wang M.D. 09/02/2017 3:00 PM Dictated Date/Time: 09/02/2017 2:58 PM
[2017-09-02] MEDS ORDERED: METOPROLOL TARTRATE 50 MG TAB PO STA (15:03)
[2017-09-02 15:18] VITALS: PULSE 77; O2SAT 98
[2017-09-02] MEDS ORDERED: LORAZEPAM 0.5 MG TAB PO STA (15:55)
[2017-09-02 16:44] LABS: BASO % 0.6 %; BASO ABS # 0.05 K/uL (0-0.2); EOS % 1.9 %; EOS ABS # 0.17 K/uL (0-0.5); HEMATOCRIT 43.5 % (37-47); HEMOGLOBIN 15.7 g/dL (12.0-16.0); IG# 0.02 K/uL (0.00-0.02); LYMPH % 32.3 %; LYMPH ABS # 2.89 K/uL (1.2-3.4); MEAN CELL VOLUME 90.6 fL (80-100); MEAN CORPUSCULAR HEMOGLOBIN 32.7 pg (25-34); MEAN CORPUSCULAR HGB CONC 36.1 g/dl (32-36); MEAN PLATELET VOLUME 9.2 fL (7.4-10.4); MONO % 8.7 %; MONO ABS # 0.78 K/uL (0.11-0.59); NEUT % 56.3 %; NEUT ABS # 5.05 K/uL (1.4-6.5); PLATELET COUNT 358 K/uL (130-400); RED CELL DISTRIBUTION WIDTH SD 46.3 fL (36.4-46.3); WHITE BLOOD COUNT 8.96 K/uL (4.8-10.8)
[2017-09-02 17:42] LABS: CALCIUM 9.8 mg/dl (8.5-10.1); CREATININE 0.77 mg/dl (0.60-1.20)
--- NOTE | 2017-09-02 18:04 | DIAGNOSTIC IMAGING REPORT ---
ULTRASOUND VENOUS DOPPLER LWR EXT BILA CLINICAL HISTORY: Shortness of breath. Possible pulmonary embolism. COMPARISON STUDY: 02/03/2013 FINDINGS: On the right, no intraluminal thrombus was visualized. The veins were well visualized the groin to the proximal trifurcation veins. On the left there is chronic fibrin stranding within the common femoral and superficial femoral veins. There is thrombus present within one of the 2 peroneal veins of the left calf. The anterior tibial and posterior tibial veins appear patent as visualized IMPRESSION: 1. Left calf DVT involving one of the 2 peroneal veins 2. Fibrin stranding within the left common femoral and superficial femoral veins, likely chronic 3. No evidence of right lower extremity DVT Electronically signed by: Sergio Ocampo M.D. 09/02/2017 6:02 PM Dictated Date/Time: 09/02/2017 6:00 PM
[2017-09-02] MEDS ORDERED: HEPARIN SOD 5000 UNIT/0.5 ML CARP ONE (19:33)
[2017-09-02] MEDS ORDERED: HEPARIN 25000 UNIT/500 ML D5W ONE (19:33)
[2017-09-02 19:38] LABS: PTT PATIENT 26.9 SECONDS (21.0-31.0)
[2017-09-02] MEDS ORDERED: OPTIRAY 320 IV PRN (19:45)
[2017-09-02] MEDS ORDERED: ONDANSETRON INJ 2 MG/ML 2 ML VIAL IV PRN (19:45)
[2017-09-02] MEDS ORDERED: LEVALBUTEROL/IPRATROPIUM NEB INH PRN (20:30)
[2017-09-02] MEDS ORDERED: LORAZEPAM 0.5 MG TAB PO PRN (20:30)
[2017-09-02] MEDS ORDERED: IPRATROPIUM BROMIDE NEB SOLN 0.02% 2.5 ML VIAL INH PRN (20:45)
[2017-09-02] MEDS ORDERED: LEVALBUTEROL 1.25MG/0.5ML NEB INH PRN (20:45)
[2017-09-02 21:17] VITALS: BP 167/90; PULSE 71; TEMP 36.4; O2SAT 100; Ht 157.5 cm; Wt 50.2 kg
--- NOTE | 2017-09-02 21:37 | EMERGENCY ROOM VISIT NOTE ---
History Report prepared by Gosia: Martita Kinney Under the Supervision of: Dr. Fady Harris D.O. First contact with patient: 14:03 Chief Complaint: SHORTNESS OF BREATH Stated Complaint: SHORTNESS OF BREATH History of Present Illness The patient is a 66 year old female who presents to the Emergency Room with complaints of persistent SOB starting this morning. The patient was getting ready in the morning when she suddenly started feeling SOB. She states that it feels like her lungs are frozen. She has had this before. She has a history of COPD. She reports feeling anxious and lightheaded. She has had some rhinorrhea. She denies any cough, chest pain, abdominal pain, nausea, vomiting, or urinary symptoms. She is not on oxygen at home. She does not use inhalers. She is on metoprolol. She is not on blood thinners. Source of History: patient Onset: this morning Position: other (global) Quality: other (SOB) Timing: other (persistent) Associated Symptoms: No cough, No chest pain, No nausea, No vomiting, No abdominal pain, No urinary symptoms Note: Pt reports anxiety, lightheadedness, rhinorrhea. Review of Systems See HPI for pertinent positives & negatives. A total of 10 systems reviewed and were otherwise negative. Past Medical & Surgical Medical Problems: (1) Alcohol abuse (2) Anxiety (3) Benign hypertension (4) Bipolar disorder (5) Chest pain (6) Chronic pelvic pain of female (7) Deep venous thrombosis (8) Drug abuse (9) Hypertensive urgency (10) IBS (11) IVC filter (12) Posttraumatic stress disorder (13) Schizoaffective disorder (14) Suicide attempt (15) Tobacco abuse (16) UGI bleed Surgical Problems: (1) Cystoscopy (2) h/o inferior vena cava filter placement (3) Tonsillectomy Family History Cancer MOTHER (Colon ) Diabetes mellitus FATHER Endocrine disorder SISTER (Thyroid) FH: mental illness SISTER Heart disease FATHER MOTHER Stroke Social History Smoking Status: Current Every Day Smoker Alcohol Use: none Drug Use: none Marital Status: Housing Status: lives alone Occupation Status: disabled Current/Historical Medications Scheduled Metoprolol Tartrate (Metoprolol Tartrate), 50 MG PO BID Allergies Coded Allergies: Atropine (Verified Allergy, Severe, castillo, hard time breathing, 09/02/17) Diphenhydramine (Verified Allergy, Severe, "I ALMOST .", 09/02/17) Hyoscyamine (Verified Allergy, Severe, castillo, hard time breathing, 09/02/17) Labetalol (Verified Allergy, Severe, selling,loss of taste,itch, rash, ) Phenobarbital (Verified Allergy, Severe, castillo, hard time breathing, 09/02/17) Prednisone (Verified Allergy, Severe, Edema face,lips and tongue., 09/02/17 ) Meticorten Scopolamine (Verified Allergy, Severe, castillo, hard time breathing, 09/02/17) Enoxaparin (Verified Allergy, Intermediate, RASH, 09/02/17) Levofloxacin (Verified Allergy, Intermediate, ARM TURNED "FIREY RED" WHEN INFUSED, CLEARED IN A FEW HOURS, 09/02/17) Tramadol (Verified Allergy, Intermediate, blisters all over, 09/02/17) Warfarin (Verified Allergy, Intermediate, rash, 09/02/17) Chlorpromazine (Verified Allergy, Mild, TOLERATING PROLIXIN AT HOME , 09/02/17) Penicillins (Verified Allergy, Mild, 09/02/17) Coumarin (Verified Allergy, Unknown, UNKNOWN, 09/02/17) Naproxen (Verified Allergy, Unknown, Unknown, 09/02/17) Morphine (Verified Adverse Reaction, Severe, SHOCK;TOLERATES DEMEROL, 09/02) ABLE TO TAKE DEMEROL WITHOUT DIFFICULTY Aspirin (Verified Adverse Reaction, Intermediate, BLEEDING, 09/02/17) Codeine (Verified Adverse Reaction, Intermediate, BP DROPS AND PASSES OUT, 09/02/17) Replaces CODEINE PHOSP Dicyclomine (Unverified Adverse Reaction, Intermediate, GI SYMPTOMS, ) Ibuprofen (Verified Adverse Reaction, Intermediate, BLEEDING, 09/02/17) Amitriptyline (Verified Adverse Reaction, Mild, Nausea/vomitimg, 09/02/17) Lisinopril (Verified Adverse Reaction, Mild, COUGH, 09/02/17) Nitrofurantoin (Verified Adverse Reaction, Unknown, hallucinating, 09/02/17 ) Physical Exam Vital Signs Date Time Temp Pulse Resp B/P (MAP) Pulse Ox O2 Delivery O2 Flow Rate FiO2 09/02/17 19:30 75 20 154/88 98 Room Air 09/02/17 19:04 64 09/02/17 18:48 78 20 152/105 98 Room Air 09/02/17 16:02 87 20 168/85 97 Room Air 09/02/17 15:29 99 Room Air 09/02/17 15:18 77 16 98 Room Air 09/02/17 14:05 87 09/02/17 13:58 36.6 93 20 179/120 100 Room Air Physical Exam GENERAL: Sitting up in bed, talking in a soft quiet voice, very tearful, no acute distress, disheveled EYE EXAM: normal conjunctiva. OROPHARYNX: no exudate, no erythema, lips, buccal mucosa, and tongue normal and mucous membranes are moist NECK: supple, no nuchal rigidity, no adenopathy, non-tender, no JVD LUNGS: Poor inspiratory effort. No wheezing. Clear to auscultation. Normal chest wall mechanics HEART: no murmurs, S1 normal and S2 normal ABDOMEN: abdomen soft, non-tender, normo-active bowel sounds, no masses, no rebound or guarding. BACK: Back is symmetrical on inspection and there is no deformity, no midline tenderness, no CVA tenderness. SKIN: no rashes and no bruising UPPER EXTREMITIES: upper extremities are grossly normal. LOWER EXTREMITIES: No pitting edema. Calves equal bilaterally. NEURO EXAM: Normal sensorium, cranial nerves II-XII grossly intact, normal speech, no gross weakness of arms, no gross weakness of legs. Medical Decision & Procedures ER Provider Diagnostic Interpretation: Xray results as stated below per my and the radiologist's interpretation. Radiology results as stated below per my review and the radiologist's interpretation: CHEST ONE VIEW PORTABLE HISTORY: Short of breath. COMPARISON: Chest 08/23/2017. FINDINGS: The lungs are clear. The heart is normal in size. Old, healed left lower rib fractures. No pleural effusions. No pneumothorax. An IVC filter is noted. IMPRESSION: No significant change compared to the prior study. No acute process. Electronically signed by: Montrell Wang M.D. 09/02/2017 3:00 PM Dictated Date/Time: 09/02/2017 2:58 PM ULTRASOUND VENOUS DOPPLER LWR EXT BILA CLINICAL HISTORY: Shortness of breath. Possible pulmonary embolism. COMPARISON STUDY: 02/03/2013 FINDINGS: On the right, no intraluminal thrombus was visualized. The veins were well visualized the groin to the proximal trifurcation veins. On the left there is chronic fibrin stranding within the common femoral and superficial femoral veins. There is thrombus present within one of the 2 peroneal veins of the left calf. The anterior tibial and posterior tibial veins appear patent as visualized IMPRESSION: 1. Left calf DVT involving one of the 2 peroneal veins 2. Fibrin stranding within the left common femoral and superficial femoral veins, likely chronic 3. No evidence of right lower extremity DVT Electronically signed by: Sergio Ocampo M.D. 09/02/2017 6:02 PM Dictated Date/Time: 09/02/2017 6:00 PM Laboratory Results 09/02/17 16:37 Red Blood Count 4.80, Mean Corpuscular Volume 90.6, Mean Corpuscular Hemoglobin 32.7, Mean Corpuscular Hemoglobin Concent 36.1, Mean Platelet Volume 9.2, Neutrophils (%) (Auto) 56.3, Lymphocytes (%) (Auto) 32.3, Monocytes (%) (Auto) 8.7, Eosinophils (%) (Auto) 1.9, Basophils (%) (Auto) 0.6, Neutrophils # (Auto) 5.05, Lymphocytes # (Auto) 2.89, Monocytes # (Auto) 0.78, Eosinophils # (Auto) 0.17, Basophils # (Auto) 0.05 09/02/17 16:37 Test 09/02/17 16:37 White Blood Count 8.96 K/uL (4.8-10.8) Red Blood Count 4.80 M/uL (4.2-5.4) Hemoglobin 15.7 g/dL (12.0-16.0) Hematocrit 43.5 % (37-47) Mean Corpuscular Volume 90.6 fL (80-100) Mean Corpuscular Hemoglobin 32.7 pg (25-34) Mean Corpuscular Hemoglobin Concent 36.1 g/dl (32-36) Platelet Count 358 K/uL (130-400) Mean Platelet Volume 9.2 fL (7.4-10.4) Neutrophils (%) (Auto) 56.3 % Lymphocytes (%) (Auto) 32.3 % Monocytes (%) (Auto) 8.7 % Eosinophils (%) (Auto) 1.9 % Basophils (%) (Auto) 0.6 % Neutrophils # (Auto) 5.05 K/uL (1.4-6.5) Lymphocytes # (Auto) 2.89 K/uL (1.2-3.4) Monocytes # (Auto) 0.78 K/uL (0.11-0.59) Eosinophils # (Auto) 0.17 K/uL (0-0.5) Basophils # (Auto) 0.05 K/uL (0-0.2) RDW Standard Deviation 46.3 fL (36.4-46.3) RDW Coefficient of Variation 14.0 % (11.5-14.5) Immature Granulocyte % (Auto) 0.2 % Immature Granulocyte # (Auto) 0.02 K/uL (0.00-0.02) Prothrombin Time 10.7 SECONDS (9.0-12.0) Prothromb Time International Ratio 1.0 (0.9-1.1) Activated Partial Thromboplast Time 26.9 SECONDS (21.0-31.0) Partial Thromboplastin Ratio 1.0 Anion Gap 9.0 mmol/L (3-11) Est Creatinine Clear Calc Drug Dose 58.4 ml/min Estimated GFR () 94.6 Estimated GFR (Non- 81.6 BUN/Creatinine Ratio 11.8 (10-20) Calcium Level 9.8 mg/dl (8.5-10.1) Troponin I < 0.015 ng/ml (0-0.045) Laboratory results per my review. Medications Administered Medications (Trade) Dose Ordered Sig/Thiago Route Start Time Stop Time Status Last Admin Dose Admin Levalbuterol (Xopenex 1.25MG/ 3ML Neb) 1.25 mg ONE STAT INH 09/02/17 14:29 09/02/17 14:40 DC 09/02/17 14:29 1.25 MG Metoprolol Tartrate (Lopressor Tab) 50 mg NOW STAT PO 09/02/17 15:03 09/02/17 15:04 DC 09/02/17 16:29 50 MG Lorazepam (Ativan Tab) 0.5 mg NOW STAT PO 09/02/17 15:55 09/02/17 15:57 DC 09/02/17 16:29 0.5 MG Heparin Sodium/ Dextrose 1 ea NOW STAT N/A 09/02/17 18:42 09/02/17 18:45 DC 09/02/17 18:42 1 EA ECG Indication: SOB/dyspnea Rate (beats per minute): 73 Rhythm: sinus rhythm Findings: no ectopy, other (normal axis) Change: Patient's electrocardiogram interpreted by me. ED Course ED COURSE: Vital signs were reviewed and showed hypertension. The patients medical record was reviewed The above diagnostic studies were performed and reviewed. ED treatments and interventions as stated above. 1429: Levalbuterol 1.25 mg INH. 1442: The patient was evaluated in room B12B. A complete history and physical examination was performed. 1503: Lopressor Tab 50 mg PO. 1555: Lorazepam 0.5 mg PO. 1635: I reevaluated the patient. She is getting blood work now. 1705: I reevaluated the patient. I updated her on the results. 1825: Upon reevaluation, the patient is stable. I discussed my findings with the patient and she understands and agrees with the treatment plan. Based on the patients age, coexisting illnesses, exam and lab findings the decision to treat as an inpatient was made. The patient remained stable while under my care. The patient will be evaluated for further management. 182: I reviewed the patient's case with Sabina Kruger PA-C [facility] hospitalist. She will evaluate the patient for further management. 1842: Heparin Sodium/Dextrose 1 ea IV. Medical Decision Differential diagnoses includes but is not limited to pneumonia, bronchitis, COPD/Asthma exacerbation, pneumothorax, pulmonary embolism, congestive heart failure, acute coronary syndrome Patient is a 66-year-old female who presents to ER for shortness of breath associated with pleuritic chest pain. Patient was seen independently of the resident. Patient has been seen here previously for similar complaints. She does have a history of an IVC filter and previous DVTs. She is not on any anticoagulation. CBC along with BMP was unremarkable. Troponin was negative. INR was normal. Duplex shows no clot in the left lower extremity. We were unable to establish an IV greater than a 24 in her hand and consequently unable to perform a CT PE secondary to the IV. Due to timing/6 PM unable to perform V/ Q study. With the new clot and pleuritic chest pain patient was placed on heparin drip and given a bolus secondary to the concern for a PE. Patient denied any bleeding risk factors including recent trauma, surgeries, vomiting blood, coughing up blood, urinating blood, blood in stool or pedis brain bleeds. Patient was treated for PE and admitted to internal medicine for further workup for a possible V/Q study in the morning. Medication Reconcilliation Current Medication List: was personally reviewed by me Blood Pressure Screening Patient's blood pressure: Elevated blood pressure Blood pressure disposition: Referred to PCP Consults Time Called: 1818 Consulting Physician: LILIANA Anand hospitalist Returned Call: 1828 I reviewed the patient's case with her. She will evaluate the patient for further management. Impression Primary Impression: DVT (deep venous thrombosis) Additional Impression: Chest pain Critical Care I have personally spent 35 minutes of critical care time in the direct management of this patient. This includes bedside care, interpretation of diagnostic studies, and testing, discussion with consultants, patient, and family members, and other required patient management activities. This 35 minutes is in excess of all separately billable procedures. Scribe Attestation The scribe's documentation has been prepared under my direction and personally reviewed by me in its entirety. I confirm that the note above accurately reflects all work, treatment, procedures, and medical decision making performed by me. Departure Information Dispostion Being Evaluated By Hospitalist Referrals Maria Alejandra Gonzalez D.O. (PCP) Patient Instructions My [facility] Problem Qualifiers Primary Impression: DVT (deep venous thrombosis) DVT location: lower extremity Affected thrombotic vein of extremity: unspecified vein of extremity Chronicity: acute Laterality: left Qualified Codes: I82.402 - Acute embolism and thrombosis of unspecified deep veins of left lower extremity Additional Impression: Chest pain Chest pain type: unspecified Qualified Codes: R07.9 - Chest pain, unspecified
[2017-09-02] MEDS ORDERED: CLONIDINE HCL 0.1 MG TAB PO PRN (22:45)
[2017-09-02] MEDS ORDERED: HEPARIN 25,000 UNIT/500ML D5W 500 ML IV PRN (23:00)
--- NOTE | 2017-09-02 23:01 | History and Physical ---
History & Physical Date & Time of Service: Sep 02, 2017 at 20:00 Chief Complaint: Chest Pain, Hyptertensive Urgency Primary Care Physician: Maria Alejandra Gonzalez D.O. History of Present Illness Source: patient, clinic records, hospital records This is a patient with a PMH of HTN, chronic LLE DVT s/p IVF filter), schizoaffective disorder, IBS, PTSD and history of alcohol/drug dependence who presents with worsening chest discomfort. Patient states that she has experienced the feeling that her "lungs are frozen" on and off for months but that it was much more severe today. Patient has been out of her blood pressure medication for a few days and was getting ready to take the bus to [facility] for her prescription when she experiences 8/10 band-like chest discomfort wrapping from anterior to posterior thorax. Describes pain as hot, intense and burning. Worse with movement or inspiration. No radiation to jaw or arms. No diaphoresis , nausea, vomiting. Per chart review, patient has a chronic LLE DVT that has been present since 2002, when an IVC filter was placed. Is allergic to coumadin and lovenox. Unable to give specific reactions during interview. Has a history of schizoaffective disorder and PTSD for which she does not take any medication. Denies SI/HI or auditory/visual hallucinations. Endorses feeling very anxious lately and has been having difficulty sleeping due startling easily with loud noises, shadows, etc. In addition to chest discomfort, SOB and anxiety, patient endorses rhinorrhea, diffuse abdominal pain and pain in her hands. Denies fever, chills, lightheadedness, headache, visual changes, palpitations, nausea, vomiting, dysuria, diarrhea/constipation or LE swelling. BP was elevated to 179/120 in ED. EKG, troponin CXR all within normal limits. Past Medical/Surgical History Medical Problems: (1) Anxiety Status: Chronic (2) Chronic pelvic pain of female Status: Chronic (3) DVT (deep venous thrombosis) Status: Chronic (4) H/O drug abuse Status: Chronic (5) IBS Status: Chronic (6) Posttraumatic stress disorder Status: Chronic (7) Schizoaffective disorder Status: Chronic (8) Suicide attempt Permanent Comment: acetaminophen OD Status: Resolved (9) Tobacco abuse Status: Chronic Surgical Problems: (1) Cystoscopy Status: Resolved (2) h/o inferior vena cava filter placement Status: Chronic (3) Tonsillectomy Status: Resolved Social History Problems: (1) IVC filter Status: Chronic Family History Cancer MOTHER (Colon ) Diabetes mellitus FATHER Endocrine disorder SISTER (Thyroid) FH: mental illness SISTER Heart disease FATHER MOTHER Stroke Social History Smoking Status: Current Every Day Smoker (08/08 ppd) Alcohol Use: none Drug Use: none Marital Status: Housing status: lives alone Occupational Status: disabled Immunizations History of Influenza Vaccine: No History of Tetanus Vaccine?: Yes Tetanus Immunization Date: Feb 20, 1999 History of Pneumococcal: No History of Hepatitis B Vaccine: No Multi-Drug Resistant Organisms History of MDRO: No Allergies Coded Allergies: Atropine (Verified Allergy, Severe, castillo, hard time breathing, 09/02/17) Diphenhydramine (Verified Allergy, Severe, "I ALMOST .", 09/02/17) Hyoscyamine (Verified Allergy, Severe, castillo, hard time breathing, 09/02/17) Labetalol (Verified Allergy, Severe, selling,loss of taste,itch, rash, ) Phenobarbital (Verified Allergy, Severe, castillo, hard time breathing, 09/02/17) Prednisone (Verified Allergy, Severe, Edema face,lips and tongue., 09/02/17 ) Meticorten Scopolamine (Verified Allergy, Severe, castillo, hard time breathing, 09/02/17) Enoxaparin (Verified Allergy, Intermediate, RASH, 09/02/17) Levofloxacin (Verified Allergy, Intermediate, ARM TURNED "FIREY RED" WHEN INFUSED, CLEARED IN A FEW HOURS, 09/02/17) Tramadol (Verified Allergy, Intermediate, blisters all over, 09/02/17) Warfarin (Verified Allergy, Intermediate, rash, 09/02/17) Chlorpromazine (Verified Allergy, Mild, TOLERATING PROLIXIN AT HOME , 09/02/17) Penicillins (Verified Allergy, Mild, 09/02/17) Coumarin (Verified Allergy, Unknown, UNKNOWN, 09/02/17) Naproxen (Verified Allergy, Unknown, Unknown, 09/02/17) Morphine (Verified Adverse Reaction, Severe, SHOCK;TOLERATES DEMEROL, 09/02) ABLE TO TAKE DEMEROL WITHOUT DIFFICULTY Aspirin (Verified Adverse Reaction, Intermediate, BLEEDING, 09/02/17) Codeine (Verified Adverse Reaction, Intermediate, BP DROPS AND PASSES OUT, 09/02/17) Replaces CODEINE PHOSP Dicyclomine (Unverified Adverse Reaction, Intermediate, GI SYMPTOMS, ) Ibuprofen (Verified Adverse Reaction, Intermediate, BLEEDING, 09/02/17) Amitriptyline (Verified Adverse Reaction, Mild, Nausea/vomitimg, 09/02/17) Lisinopril (Verified Adverse Reaction, Mild, COUGH, 09/02/17) Nitrofurantoin (Verified Adverse Reaction, Unknown, hallucinating, 09/02/17 ) Home Medications Scheduled Metoprolol Tartrate (Metoprolol Tartrate), 50 MG PO BID Review of Systems Ten systems reviewed and negative except as noted in the HPI. Physical Exam Vital Signs Date Time Temp Pulse Resp B/P (MAP) Pulse Ox O2 Delivery O2 Flow Rate FiO2 09/02/17 21:17 36.4 71 20 167/90 100 Room Air 09/02/17 20:16 76 20 159/84 97 09/02/17 19:30 75 20 154/88 98 Room Air 09/02/17 19:04 64 09/02/17 18:48 78 20 152/105 98 Room Air 09/02/17 16:02 87 20 168/85 97 Room Air 09/02/17 15:29 99 Room Air 09/02/17 15:18 77 16 98 Room Air 09/02/17 14:05 87 09/02/17 13:58 36.6 93 20 179/120 100 Room Air General Appearance: WD/WN, + mild distress, + pertinent finding (Anxious. Breathing comfortably on room air. ) Head: normocephalic, atraumatic Eyes: normal inspection, PERRL, sclerae normal ENT: normal ENT inspection, hearing grossly normal, pharynx normal (moist mucous membranes ) Neck: supple, thyroid normal, trachea midline Respiratory/Chest: chest non-tender, lungs clear, normal breath sounds, no respiratory distress, no accessory muscle use Cardiovascular: regular rate, rhythm, no murmur, normal peripheral pulses Abdomen/GI: soft, no organomegaly, + tenderness (Diffuse TTP ) Back: normal inspection Extremities/Musculoskelatal: normal inspection, no calf tenderness, no pedal edema Neurologic/Psych: no motor/sensory deficits, alert, oriented x 3, + pertinent finding (Anxious mood. Exaggerated affect. Tangential speech. ) Skin: normal color, warm/dry Diagnostics Laboratory Results Results Past 24 Hours Test 09/02/17 16:37 09/02/17 22:38 Range/Units White Blood Count 8.96 4.8-10.8 K/uL Red Blood Count 4.80 4.2-5.4 M/uL Hemoglobin 15.7 12.0-16.0 g/dL Hematocrit 43.5 37-47 % Mean Corpuscular Volume 90.6 80-100 fL Mean Corpuscular Hemoglobin 32.7 25-34 pg Mean Corpuscular Hemoglobin Concent 36.1 32-36 g/dl Platelet Count 358 130-400 K/uL Mean Platelet Volume 9.2 7.4-10.4 fL Neutrophils (%) (Auto) 56.3 % Lymphocytes (%) (Auto) 32.3 % Monocytes (%) (Auto) 8.7 % Eosinophils (%) (Auto) 1.9 % Basophils (%) (Auto) 0.6 % Neutrophils # (Auto) 5.05 1.4-6.5 K/uL Lymphocytes # (Auto) 2.89 1.2-3.4 K/uL Monocytes # (Auto) 0.78 0.11-0.59 K/uL Eosinophils # (Auto) 0.17 0-0.5 K/uL Basophils # (Auto) 0.05 0-0.2 K/uL RDW Standard Deviation 46.3 36.4-46.3 fL RDW Coefficient of Variation 14.0 11.5-14.5 % Immature Granulocyte % (Auto) 0.2 % Immature Granulocyte # (Auto) 0.02 0.00-0.02 K/uL Prothrombin Time 10.7 9.0-12.0 SECONDS Prothromb Time International Ratio 1.0 0.9-1.1 Activated Partial Thromboplast Time 26.9 21.0-31.0 SECONDS Partial Thromboplastin Ratio 1.0 Sodium Level 133 136-145 mmol/L Potassium Level 4.0 3.5-5.1 mmol/L Chloride Level 101 98-107 mmol/L Carbon Dioxide Level 23 21-32 mmol/L Anion Gap 9.0 3-11 mmol/L Blood Urea Nitrogen 9 7-18 mg/dl Creatinine 0.77 0.60-1.20 mg/dl Est Creatinine Clear Calc Drug Dose 58.4 ml/min Estimated GFR () 94.6 Estimated GFR (Non- 81.6 BUN/Creatinine Ratio 11.8 10-20 Random Glucose 88 70-99 mg/dl Calcium Level 9.8 8.5-10.1 mg/dl Troponin I < 0.015 0-0.045 ng/ml Diagnostic Radiology Left lower extremity ultrasound: IMPRESSION: 1. Left calf DVT involving one of the 2 peroneal veins 2. Fibrin stranding within the left common femoral and superficial femoral veins, likely chronic 3. No evidence of right lower extremity DVT CXR normal Normal EKG Impression Assessment and Plan This is a patient with a PMH of HTN, chronic LLE DVT s/p IVF filter), schizoaffective disorder, IBS, PTSD and history of alcohol/drug dependence who presents with worsening chest discomfort. Atypical chest pain: -R/o ACS; risk factors include HTN, smoking -Initial troponin, EKG, CXR normal -Trend serial cardiac enzymes -Unsuccessful attempt to gain IV access for CTA to evaluate for PE while in ED. -Will attempt again for a CTA while in-patient -IV heparin initiated for empiric tx of a PE in ED -If CTA comes back negative, plan to discontinue heparin -Repeat EKG in am -Telemetry Hypertensive urgency: improving -2/2 noncompliance with metoprolol for the past few days, anxiety -BP initially 179/120. Given metoprolol and ativan in ED and BP improved -No evidence of end organ damage -Cont home meds -Clonidine PRN if SBP > 160 Schizoaffective disorder, anxiety, PTSD: -Reportedly not on medications -No SI/HI, auditory/visual hallucinations -Consider psych consult Chronic LLE DVT: -S/p IVC filter placement in 2002 -Allergic to Wafarin and Lovenox -IV heparin for now DVT Ppx: IV heparin Code status: FULL PCP: Lisa Dispo: Telemetry observation. Discharge planning ordered. Patient seen in collaboration with Dr. Camargo. Please see addendum. Attending addendum: The patient was seen and examined Complains of periodic bilateral lower chest pain for a long time Came in today with increasing pain with SOB Pain gets worse with deep breathing Has H?O DVT with IVC filter placement O/E No acute distress Hemodynamically stable Chest-clear to auscultate bilaterally No Pleural rub Heart-regular Abdomen-benign Extremities-no edema Labs and Imaging studies were reviewed Chest pain-likely secondary to Pleurisy ,May have PUD With H/O DVT and not on any anticoagulation-will need to R/O Pul Embolism Started on IV heparin by the ER physician Will order for VQ scan as CTA can not be done due to lack of Venous access. Agree with the assessment and plan. Dr Kandi Camargo Level of Care Telemetry Advanced Directives Existing Living Will: No Existing Power of Farm Management Adviser: No Resuscitation Status FULL RESUSCITATION VTE Prophylaxis VTE Risk Assessment Done? Y/N: Yes Risk Level: High Given or contraindicated: Other Anticoagulation
[2017-09-02] MEDS: PANTOprazole SOD 40 MG TAB PO SCH (23:06)
[2017-09-02] MEDS: METOPROLOL TARTRATE 50 MG TAB PO SCH (23:06)
[2017-09-02 23:45] VITALS: BP 111/65; PULSE 68; TEMP 36.8; O2SAT 99
[2017-09-03] VITALS (10 sets, daily range): BP systolic 105–153; BP diastolic 70–78; PULSE 60–87; TEMP 36.3–37; O2SAT 95–100
[2017-09-03] MEDS ORDERED: IV FLUIDS COMPLETED PRN (02:30)
[2017-09-03 05:06] LABS: PTT PATIENT 38.6 SECONDS (21.0-31.0)
[2017-09-03 05:15] LABS: CALCIUM 9.1 mg/dl (8.5-10.1); CARBON DIOXIDE 25 mmol/L (21-32); CREATININE 0.78 mg/dl (0.60-1.20); GLUCOSE 102 mg/dl (70-99); POTASSIUM 3.9 mmol/L (3.5-5.1); SODIUM 133 mmol/L (136-145)
[2017-09-03 05:16] LABS: HEMATOCRIT 40.9 % (37-47); HEMOGLOBIN 14.4 g/dL (12.0-16.0); MEAN CELL VOLUME 91.5 fL (80-100); MEAN CORPUSCULAR HEMOGLOBIN 32.2 pg (25-34); MEAN CORPUSCULAR HGB CONC 35.2 g/dl (32-36); MEAN PLATELET VOLUME 9.6 fL (7.4-10.4); PLATELET COUNT 372 K/uL (130-400); RED CELL DISTRIBUTION WIDTH CV 14.2 % (11.5-14.5); RED CELL DISTRIBUTION WIDTH SD 47.4 fL (36.4-46.3); WHITE BLOOD COUNT 7.76 K/uL (4.8-10.8)
[2017-09-03 05:20] LABS: CHOLESTEROL 232 mg/dl (0-200); LDL CHOLESTEROL CALCULATED 159 mg/dl
[2017-09-03 05:41] LABS: BLOOD UREA NITROGEN 14 mg/dl (7-18)
[2017-09-03] MEDS ORDERED: HEPARIN IV BOLUS 4,000 UNIT in SYRINGE 0 ML IV ONE (06:00)
[2017-09-03] MEDS: METOPROLOL TARTRATE 50 MG TAB PO SCH ×2 (08:23→19:39)
[2017-09-03] MEDS: PANTOprazole SOD 40 MG TAB PO SCH ×2 (08:23→19:43)
[2017-09-03 14:00] LABS: PTT PATIENT 105.2 SECONDS (21.0-31.0)
--- NOTE | 2017-09-03 14:37 | DIAGNOSTIC IMAGING REPORT ---
NUCLEAR MEDICINE VENTILATION/PERFUSION SCAN CLINICAL HISTORY: pleuritic chest pain, short of breath. COMPARISON STUDY: Chest x-ray 09/02/2017. TECHNIQUE: Immediately following the inhalation of 33 mCi of technetium 99 M DTPA for the ventilation scan and the intravenous administration of 5.1 mCi of technetium 99 M MAA for the perfusion scan, anterior, oblique, lateral, and posterior views of the chest were obtained. FINDINGS: Normal perfusion and ventilation of the lungs. No segmental or mismatched defects identified. IMPRESSION: Normal perfusion scan. Electronically signed by: Montrell Wang M.D. 09/03/2017 2:36 PM Dictated Date/Time: 09/03/2017 2:29 PM
--- NOTE | 2017-09-03 15:37 | Progress Note ---
Medicine Progress Note Date & Time of Visit: Sep 03, 2017 at 15:37 . Subjective CC: Follow-up visit for chest pain and other problems. HPI: Multiple concerns. Persistent / constant chest pain. Dyspnea on exertion. Lungs feel "hard." No cough. Dysphagia to solids. Crampy abdominal pain. Recent rectal bleeding noted at home. Has lost weight. Constipated. Veins and skin hurt all over. Can't sleep. Overwhelmed that she is having all of these problems and they can't be explained / fixed. ROS: General- no fever, no chills Resp- as noted above in HPI Cardiac- as noted above in HPI GI- as noted above in HPI - no dysuria, no difficulty voiding . Objective Last 8 Hrs Date Time Temp Pulse Resp B/P (MAP) Pulse Ox O2 Delivery O2 Flow Rate FiO2 09/03/17 12:00 Room Air 09/03/17 11:58 36.5 71 20 105/70 (82) 97 Room Air 09/03/17 10:31 36.8 87 20 111/74 (86) 96 09/03/17 08:45 37.0 68 18 118/74 (89) 95 09/03/17 08:00 Room Air Physical Exam: General- sitting in bed; no acute distress Lungs- diffuse mild wheezing; no respiratory distress Cardiovascular- RRR; no gallop; no JVD; no pretibial edema Abdomen- + bowel sounds, soft, nontender Extremities- no cyanosis; no calf tenderness Neuropsych- alert, oriented, anxious Skin- warm & dry . Laboratory Results: Last 24 Hours Test 09/02/17 16:37 09/02/17 22:38 09/03/17 04:40 09/03/17 12:46 White Blood Count 8.96 K/uL 7.76 K/uL Red Blood Count 4.80 M/uL 4.47 M/uL Hemoglobin 15.7 g/dL 14.4 g/dL Hematocrit 43.5 % 40.9 % Mean Corpuscular Volume 90.6 fL 91.5 fL Mean Corpuscular Hemoglobin 32.7 pg 32.2 pg Mean Corpuscular Hemoglobin Concent 36.1 g/dl 35.2 g/dl Platelet Count 358 K/uL 372 K/uL Mean Platelet Volume 9.2 fL 9.6 fL Neutrophils (%) (Auto) 56.3 % Lymphocytes (%) (Auto) 32.3 % Monocytes (%) (Auto) 8.7 % Eosinophils (%) (Auto) 1.9 % Basophils (%) (Auto) 0.6 % Neutrophils # (Auto) 5.05 K/uL Lymphocytes # (Auto) 2.89 K/uL Monocytes # (Auto) 0.78 K/uL Eosinophils # (Auto) 0.17 K/uL Basophils # (Auto) 0.05 K/uL RDW Standard Deviation 46.3 fL 47.4 fL RDW Coefficient of Variation 14.0 % 14.2 % Immature Granulocyte % (Auto) 0.2 % Immature Granulocyte # (Auto) 0.02 K/uL Prothrombin Time 10.7 SECONDS Prothromb Time International Ratio 1.0 Activated Partial Thromboplast Time 26.9 SECONDS 38.6 SECONDS 105.2 SECONDS Partial Thromboplastin Ratio 1.0 1.5 4.0 Sodium Level 133 mmol/L 133 mmol/L Potassium Level 4.0 mmol/L 3.9 mmol/L Chloride Level 101 mmol/L 102 mmol/L Carbon Dioxide Level 23 mmol/L 25 mmol/L Anion Gap 9.0 mmol/L 6.0 mmol/L Blood Urea Nitrogen 9 mg/dl 14 mg/dl Creatinine 0.77 mg/dl 0.78 mg/dl Est Creatinine Clear Calc Drug Dose 58.4 ml/min 57.6 ml/min Estimated GFR () 94.6 93.1 Estimated GFR (Non- 81.6 80.3 BUN/Creatinine Ratio 11.8 18.3 Random Glucose 88 mg/dl 102 mg/dl Calcium Level 9.8 mg/dl 9.1 mg/dl Troponin I < 0.015 ng/ml < 0.015 ng/ml < 0.015 ng/ml Triglycerides Level 127 mg/dl Cholesterol Level 232 mg/dl HDL Cholesterol 48 mg/dl LDL Cholesterol, Calculated 159 mg/dl VLDL Cholesterol, Calculated 25 mg/dl Cholesterol/HDL Ratio 4.8 Hepatitis C Antibody Screen NEG Assessment & Plan CHEST PAIN NV ruled out. EKG in ED demonstrated NSR without acute changes. 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 Pulmonary embolism ruled out by VQ scan. Hypertensive urgency may have been a contributing factor. Symptoms may be due to esophageal pathology as discussed below. Symptoms may be due to anxiety or somatoform disorder as discussed below. DVT LEFT LOWER EXTREMITY (present on admission) DVT left peroneal vein noted on venous duplex as well as chronic fibrin stranding within left common femoral and superficial femoral veins. No LLE symptoms. Acute PE ruled out by VQ scan. Patient initially received IV heparin. History of previous DVT's and PE's. Has been on warfarin and enoxaparin in the past, but they were discontinued due to issues related to compliance and bleeding complications. States that she cannot afford DOAC's. IVC filter placed in 2002. Will stop IV heparin. Recommend outpatient venous duplex to assure that calf DVT does not propagate ( although management may not change). HYPERTENSIVE URGENCY BP 179/120 in ED. Compliance with metoprolol uncertain. BP's now improved. Continue metoprolol. DYSPNEA Acute PE ruled out. Most likely secondary to COPD. Outpatient PFT's recommended. Smoking cessation discussed. DYSPHAGIA Patient reports dysphagia associated with weight loss. Check barium esophagram. RECTAL BLEEDING Patient reports intermittent rectal bleeding at home. Check stool for occult blood. Monitor H/H. Recommend outpatient colonoscopy. ANXIETY / DEPRESSION / SOMATOFORM DISORDER / SCHIZOAFFECTIVE DISORDER Patient has multiple somatic complaints and is emotionally overwhelmed. Try alprazolam pending Psych input. VTE PROPHYLAXIS Initially received IV heparin. Transition to SQ heparin. Ambulate. DISPOSITION Expected discharge to home. Medical follow-up with Dr Gonzalez with [facility] in [place]. . Current Inpatient Medications: Current Inpatient Medications Medications (Trade) Dose Ordered Sig/Thiago Route Start Time Stop Time Status Last Admin Dose Admin Ioversol (Optiray 320) 100 ml UD PRN IV 09/02/17 19:45 09/06/17 19:44 Ondansetron HCl (Zofran Inj) 4 mg Q6H PRN IV 09/02/17 19:45 10/02/17 19:44 Metoprolol Tartrate (Lopressor Tab) 50 mg BID PO 09/02/17 21:00 10/02/17 20:59 09/03/17 08:23 50 MG Lorazepam (Ativan Tab) 0.5 mg Q6 PRN PO 09/02/17 20:30 10/02/17 20:29 Pantoprazole Sodium (Protonix Tab) 40 mg BID PO 09/02/17 21:00 09/06/17 09:01 Ipratropium [place] (Atrovent 0.02% 0.5MG/2.5ML Neb) 0.5 mg Q6H PRN INH 09/02/17 20:45 10/02/17 20:44 Levalbuterol (Xopenex 1.25MG/ 0.5ML Neb) 1.25 mg Q6H PRN INH 09/02/17 20:45 10/02/17 20:44 Clonidine HCl (Catapres Tab) 0.1 mg Q6 PRN PO 09/02/17 22:45 10/02/17 22:44 Heparin Sodium/ Dextrose 500 ml @ 20 mls/hr Q24H PRN IV 09/02/17 23:00 10/02/17 22:59 09/03/17 15:14 20 MLS/HR Miscellaneous (Iv Fluids Completed) 1 ea PRN PRN N/A 09/03/17 02:30 09/03/18 02:29
[2017-09-03] MEDS ORDERED: POLYETHYLENE (MIRALAX) 17 GM PACK PO ONE (16:15)
[2017-09-03] MEDS: HEPARIN SOD 5000 UNIT/0.5 ML CARP SQ SCH (19:40)
[2017-09-03] MEDS: POLYETHYLENE (MIRALAX) 17 GM PACK PO SCH (19:43)
[2017-09-03] MEDS: ALPRAZOLAM 0.5 MG TAB PO SCH (21:26)
[2017-09-04] MEDS ORDERED: ACETAMINOPHEN IV 100 ML IV STA (05:30)
[2017-09-04] MEDS ORDERED: ACETAMINOPHEN 325 MG TAB PO PRN (05:45)
[2017-09-04 07:26] VITALS: BP 122/76; PULSE 69; TEMP 36.4; O2SAT 100
--- NOTE | 2017-09-04 08:20 | DIAGNOSTIC IMAGING REPORT ---
ABD/PELVIS NO IV OR ORAL CONT CLINICAL HISTORY: 66 years-old Female presenting with abd pain; px refused IV contrast study. TECHNIQUE: Multidetector CT of the abdomen and pelvis was performed without the use of intravenous contrast. IV contrast: None. A dose lowering technique was used consistent with the principles of ALARA (as low as reasonably achievable). COMPARISON: 08/07/2014. CT DOSE (mGy.cm): The estimated cumulative dose is 243.51 mGy.cm. FINDINGS: Screen Printing Paster topogram: 2 IVC filters noted. Lung bases: Minimal basilar opacities, likely atelectasis. Normal heart size. Mitral annular calcification suspected. No pericardial or pleural effusion. Liver: Normal morphology. Normal density. Biliary: No gross biliary ductal dilatation allowing for noncontrast technique. Normal gallbladder. Pancreas: Normal noncontrast appearance. Spleen: Normal noncontrast appearance. Adrenal glands: Nodular thickening of the left adrenal gland, nonspecific. Right adrenal gland normal. Kidneys and ureters: Nonobstructing 3 mm calculus at the left renal pelvis. No hydronephrosis or hydroureter. No other renal calculi. Ureters poorly visualized in the mid to distal portion but nondilated. Bladder: Mild circumferential bladder wall thickening. Pelvic organs: Normal noncontrast appearance. Bowel: Moderate stool burden throughout mildly distended colon, primarily affecting the right and transverse colon. The appendix is normal and contains hyperdense material in the mid to distal aspect, possibly prior contrast or tiny appendicoliths. No bowel obstruction. Peritoneal cavity: No free fluid or intraperitoneal gas. Lymph nodes: No gross lymphadenopathy allowing for noncontrast technique. Vasculature: [address], one of which is suprarenal. The more inferior filter is not positioned within the IVC and rather appears to follow the proximal course of the right gonadal vein though the tines are largely extraluminal. This appearance is unchanged since 2014. Atherosclerosis of the normal caliber abdominal aorta. Abdominal wall: Normal. Musculoskeletal: Osteopenia. IMPRESSION: 1. Mild circumferential bladder wall thickening could suggest cystitis. Correlate with urinalysis. 2. Nonobstructing 3 mm calculus in the left renal pelvis. No hydronephrosis. 3. Constipation primarily involving the right and transverse colon. 4. Osteopenia. 5. Evaluation limited by lack of intravenous contrast. Electronically signed by: Graham Atkins M.D. 09/04/2017 8:18 AM Dictated Date/Time: 09/04/2017 7:08 AM
--- NOTE | 2017-09-04 08:22 | DIAGNOSTIC IMAGING REPORT ---
(BARIUM SWALLOW) ESOPHAGUS CLINICAL HISTORY: Dysphagia, weight loss. COMPARISON STUDY: Barium swallow February 04, 2013. FLUOROSCOPY TIME: 1.6 minutes. FINDINGS: Esophageal motility was normal. No esophageal mass or stricture was identified. 13 mm barium tablet passed freely into the stomach. Incidental note was made of an IVC filter. No reflux was elicited. No hiatal hernia was identified. Mild prominence of the cricopharyngeus is unchanged. IMPRESSION: No esophageal mass or stricture. Electronically signed by: Papa Nur M.D. 09/04/2017 8:20 AM Dictated Date/Time: 09/04/2017 8:19 AM
[2017-09-04] MEDS: ALPRAZOLAM 0.25 MG TAB PO SCH ×2 (08:39→13:49)
[2017-09-04] MEDS: METOPROLOL TARTRATE 50 MG TAB PO SCH ×2 (08:39→20:34)
[2017-09-04] MEDS: PANTOprazole SOD 40 MG TAB PO SCH (08:39)
[2017-09-04] MEDS: POLYETHYLENE (MIRALAX) 17 GM PACK PO SCH ×2 (08:47→20:32)
[2017-09-04] MEDS: HEPARIN SOD 5000 UNIT/0.5 ML CARP SQ SCH ×2 (08:47→20:38)
[2017-09-04 09:28] LABS: HEMATOCRIT 42.3 % (37-47); HEMOGLOBIN 14.7 g/dL (12.0-16.0)
[2017-09-04 10:02] LABS: ALBUMIN 4.2 gm/dl (3.4-5.0); ALT/SGPT 24 U/L (12-78); AST/SGOT 12 U/L (15-37); BLOOD UREA NITROGEN 8 mg/dl (7-18); CALCIUM 9.6 mg/dl (8.5-10.1); CARBON DIOXIDE 23 mmol/L (21-32); CREATININE 0.68 mg/dl (0.60-1.20); GLUCOSE 92 mg/dl (70-99); LIPASE 577 U/L (73-393); POTASSIUM 3.9 mmol/L (3.5-5.1); SODIUM 138 mmol/L (136-145)
[2017-09-04 10:08] LABS: ALKALINE PHOSPHATASE 78 U/L (45-117); TOTAL PROTEIN 7.6 gm/dl (6.4-8.2)
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
[2017-09-04 15:41] VITALS: BP 154/84; PULSE 72; TEMP 36.2; O2SAT 98
[2017-09-04 16:00] VITALS: O2SAT 98
[2017-09-04] MEDS ORDERED: TAP WATER ENEMA PR ONE (19:45)
--- NOTE | 2017-09-04 20:14 | Progress Note ---
Medicine Progress Note Date & Time of Visit: Sep 04, 2017 at 19:30 . Subjective CC: Follow-up visit for chest pain and other problems. HPI: Severe abdominal pain during the night. CT scan obtained. Minimal results from MiraLax. Still having diffuse crampy abdominal pain. No nausea or vomiting. Tolerating diet. No further chest pain. No cough or dyspnea at rest. ROS: General- no fever, no chills Resp- as noted above in HPI Cardiac- as noted above in HPI GI- as noted above in HPI - no dysuria, no difficulty voiding . Objective Last 8 Hrs Date Time Temp Pulse Resp B/P (MAP) Pulse Ox O2 Delivery O2 Flow Rate FiO2 09/04/17 16:00 98 Room Air 09/04/17 15:41 36.2 72 18 154/84 (107) 98 Room Air Physical Exam: General- lying in bed; no acute distress Lungs- diffuse mild wheezing; no respiratory distress Cardiovascular- RRR; no gallop; no JVD; no pretibial edema Abdomen- slightly distended, + bowel sounds, soft, nontender Extremities- no cyanosis; no calf tenderness Neuropsych- alert, oriented, less anxious Skin- warm & dry . Laboratory Results: Last 24 Hours Test 09/04/17 08:59 09/04/17 15:00 Hemoglobin 14.7 g/dL Hematocrit 42.3 % Sodium Level 138 mmol/L Potassium Level 3.9 mmol/L Chloride Level 106 mmol/L Carbon Dioxide Level 23 mmol/L Anion Gap 8.0 mmol/L Blood Urea Nitrogen 8 mg/dl Creatinine 0.68 mg/dl Est Creatinine Clear Calc Drug Dose 66.1 ml/min Estimated GFR () 107.1 Estimated GFR (Non- 92.4 BUN/Creatinine Ratio 11.8 Random Glucose 92 mg/dl Calcium Level 9.6 mg/dl Total Bilirubin 0.4 mg/dl Direct Bilirubin < 0.1 mg/dl Aspartate Amino Transf (AST/SGOT) 12 U/L Alanine Aminotransferase (ALT/SGPT) 24 U/L Alkaline Phosphatase 78 U/L Total Protein 7.6 gm/dl Albumin 4.2 gm/dl Lipase 577 U/L Stool Occult Blood NEGATIVE Assessment & Plan CHEST PAIN [place] ruled out. EKG in ED demonstrated NSR without acute changes. 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 Pulmonary embolism ruled out by VQ scan. Hypertensive urgency may have been a contributing factor. Symptoms may be due to esophageal pathology as discussed below. Symptoms may be due to anxiety or somatoform disorder as discussed below. DVT LEFT LOWER EXTREMITY (present on admission) DVT left peroneal vein noted on venous duplex as well as chronic fibrin stranding within left common femoral and superficial femoral veins. No LLE symptoms. Acute PE ruled out by VQ scan. Patient initially received IV heparin. History of previous DVT's and PE's. Has been on warfarin and enoxaparin in the past, but they were discontinued due to issues related to compliance and bleeding complications. States that she cannot afford DOAC's. IVC filter placed in 2002. Stopped IV heparin. Recommend outpatient venous duplex to assure that calf DVT does not propagate ( although management may not change). HYPERTENSIVE URGENCY BP 179/120 in ED. Compliance with metoprolol uncertain. BP's now improved. Continue metoprolol. DYSPNEA Acute PE ruled out. Most likely secondary to COPD. Outpatient PFT's recommended. Smoking cessation discussed. DYSPHAGIA Patient reports dysphagia associated with weight loss. Barium esophagram showed mild prominence of cricopharyngeus, no significant findings. Tolerating diet. RECTAL BLEEDING Patient reports intermittent rectal bleeding at home. H/H stable on heparin. Check stool for occult blood. Recommend outpatient colonoscopy. ANXIETY / DEPRESSION / SOMATOFORM DISORDER / SCHIZOAFFECTIVE DISORDER Patient has multiple somatic complaints and is emotionally overwhelmed. Less anxious with alprazolam. Psychiatry consult requested, but patient not willing to participate with interview. VTE PROPHYLAXIS Initially received IV heparin. Transitioned to SQ heparin. Ambulate. DISPOSITION Expected discharge to home. Medical follow-up with Dr Gonzalez with [facility] in [place]. . Current Inpatient Medications: Current Inpatient Medications Medications (Trade) Dose Ordered Sig/Thiago Route Start Time Stop Time Status Last Admin Dose Admin Ioversol (Optiray 320) 100 ml UD PRN IV 09/02/17 19:45 09/06/17 19:44 Ondansetron HCl (Zofran Inj) 4 mg Q6H PRN IV 09/02/17 19:45 10/02/17 19:44 Metoprolol Tartrate (Lopressor Tab) 50 mg BID PO 09/02/17 21:00 10/02/17 20:59 09/04/17 08:39 50 MG Lorazepam (Ativan Tab) 0.5 mg Q6 PRN PO 09/02/17 20:30 10/02/17 20:29 Ipratropium [place] (Atrovent 0.02% 0.5MG/2.5ML Neb) 0.5 mg Q6H PRN INH 09/02/17 20:45 10/02/17 20:44 Levalbuterol (Xopenex 1.25MG/ 0.5ML Neb) 1.25 mg Q6H PRN INH 09/02/17 20:45 10/02/17 20:44 Clonidine HCl (Catapres Tab) 0.1 mg Q6 PRN PO 09/02/17 22:45 10/02/17 22:44 Miscellaneous (Iv Fluids Completed) 1 ea PRN PRN N/A 09/03/17 02:30 09/03/18 02:29 Alprazolam (Xanax Tab) 0.25 mg BID@0900,1400 PO 09/04/17 09:00 10/04/17 08:59 09/04/17 13:49 0.25 MG Alprazolam (Xanax Tab) 0.5 mg HS PO 09/03/17 21:00 10/03/17 20:59 09/03/17 21:26 0.5 MG Heparin Sodium (Porcine) (Heparin Sq 5000 Unit/0.5ml) 5,000 unit Q12 SQ 09/03/17 21:00 10/03/17 20:59 09/04/17 08:47 5,000 UNIT Polyethylene (Miralax Powder Packet) 17 gm BID PO 09/03/17 21:00 10/03/17 20:59 09/03/17 19:43 17 GM Acetaminophen (Tylenol Tab) 650 mg Q6H PRN PO 09/04/17 05:45 10/04/17 05:44
[2017-09-04] MEDS: ALPRAZOLAM 0.5 MG TAB PO SCH (20:32)
[2017-09-04 20:33] VITALS: BP 168/83; PULSE 72
[2017-09-04 22:59] VITALS: BP 136/102; PULSE 68; TEMP 36.2; O2SAT 98
[2017-09-05 03:13] VITALS: BP 136/84
[2017-09-05 06:57] VITALS: BP 123/71; PULSE 67; TEMP 36.6; O2SAT 98
[2017-09-05] MEDS: POLYETHYLENE (MIRALAX) 17 GM PACK PO SCH (08:16)
[2017-09-05] MEDS: ALPRAZOLAM 0.25 MG TAB PO SCH ×2 (08:16→14:23)
[2017-09-05] MEDS: METOPROLOL TARTRATE 50 MG TAB PO SCH (08:16)
[2017-09-05] MEDS: HEPARIN SOD 5000 UNIT/0.5 ML CARP SQ SCH (08:23)
[2017-09-05] MEDS ORDERED: TAP WATER ENEMA PR PRN (09:15)
--- NOTE | 2017-09-05 15:10 | Progress Note ---
Medicine Progress Note Date & Time of Visit: Sep 05, 2017 at 15:10 . Subjective CC: Follow-up visit for chest pain and other problems. HPI: No further chest pain. Fairly good results with MiraLax and tap water enema. Abdominal pain improved. ROS: As noted above. . Objective Last 8 Hrs Date Time Temp Pulse Resp B/P (MAP) Pulse Ox O2 Delivery O2 Flow Rate FiO2 09/05/17 08:00 Room Air Physical Exam: General- no acute distress Lungs- diffuse minimal wheezing; no respiratory distress Cardiovascular- RRR; no gallop; no JVD; no pretibial edema Abdomen- slightly distended, + bowel sounds, soft, nontender Extremities- no cyanosis; no calf tenderness Neuropsych- alert, oriented, less tangential Skin- warm & dry . Laboratory Results: Date/Time Source Procedure Growth Status 09/04/17 23:30 Urine , Clean Catch Urine Culture Pending Received Assessment & Plan CHEST PAIN [place] ruled out. EKG in ED demonstrated NSR without acute changes. 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 Pulmonary embolism ruled out by VQ scan. Hypertensive urgency may have been a contributing factor. No significant findings on barium esophagram. Symptoms may be due to anxiety or somatoform disorder as discussed below. DVT LEFT LOWER EXTREMITY (present on admission) DVT left peroneal vein noted on venous duplex as well as chronic fibrin stranding within left common femoral and superficial femoral veins. No LLE symptoms. Acute PE ruled out by VQ scan. Patient initially received IV heparin. History of previous DVT's and PE's. Difficult to determine if left peroneal vein thrombosis noted is chronic or acute. Has been on warfarin and enoxaparin in the past, but they were discontinued due to issues related to compliance and bleeding complications. States that she cannot afford DOAC's. IVC filter placed in 2002. Stopped IV heparin. Check repeat venous duplex as needed for calf pain or swelling. HYPERTENSIVE URGENCY BP 179/120 in ED. Compliance with metoprolol uncertain. BP's improved. Continue metoprolol. DYSPNEA Acute PE ruled out. Most likely secondary to COPD. Outpatient PFT's recommended. Smoking cessation discussed. DYSPHAGIA Patient reports dysphagia associated with weight loss. Barium esophagram showed mild prominence of cricopharyngeus, no significant findings. Tolerated diet. RECTAL BLEEDING Patient reports intermittent rectal bleeding at home. H/H stable on heparin. Stool neg for occult blood. Recommended outpatient colonoscopy. WEIGHT LOSS Patient reports significant weight loss, but unable to quantify. Barium esophagram unrevealing. Colonoscopy recommended as discussed above. Low-dose CT chest for lung cancer screening recommended. Other routine cancer screening per PCP. ANXIETY / DEPRESSION / SCHIZOAFFECTIVE DISORDER History of schizoaffective disorder. Multiple somatic complaints. Psychiatry consult requested, but patient not willing to participate with interview. VTE PROPHYLAXIS Initially received IV heparin. Transitioned to SQ heparin. Ambulate. DISPOSITION Discharged to home. Medical follow-up with Dr Gonzalez with [facility] in [place]. . Current Inpatient Medications: Current Inpatient Medications Medications (Trade) Dose Ordered Sig/Thiago Route Start Time Stop Time Status Last Admin Dose Admin Ioversol (Optiray 320) 100 ml UD PRN IV 09/02/17 19:45 09/06/17 19:44 Ondansetron HCl (Zofran Inj) 4 mg Q6H PRN IV 09/02/17 19:45 10/02/17 19:44 Metoprolol Tartrate (Lopressor Tab) 50 mg BID PO 09/02/17 21:00 10/02/17 20:59 09/05/17 08:16 50 MG Lorazepam (Ativan Tab) 0.5 mg Q6 PRN PO 09/02/17 20:30 10/02/17 20:29 Ipratropium [place] (Atrovent 0.02% 0.5MG/2.5ML Neb) 0.5 mg Q6H PRN INH 09/02/17 20:45 10/02/17 20:44 Levalbuterol (Xopenex 1.25MG/ 0.5ML Neb) 1.25 mg Q6H PRN INH 09/02/17 20:45 10/02/17 20:44 Clonidine HCl (Catapres Tab) 0.1 mg Q6 PRN PO 09/02/17 22:45 10/02/17 22:44 Miscellaneous (Iv Fluids Completed) 1 ea PRN PRN N/A 09/03/17 02:30 09/03/18 02:29 Alprazolam (Xanax Tab) 0.25 mg BID@0900,1400 PO 09/04/17 09:00 10/04/17 08:59 09/05/17 14:23 0.25 MG Alprazolam (Xanax Tab) 0.5 mg HS PO 09/03/17 21:00 10/03/17 20:59 09/04/17 20:32 0.5 MG Heparin Sodium (Porcine) (Heparin Sq 5000 Unit/0.5ml) 5,000 unit Q12 SQ 09/03/17 21:00 10/03/17 20:59 09/05/17 08:23 5,000 UNIT Polyethylene (Miralax Powder Packet) 17 gm BID PO 09/03/17 21:00 10/03/17 20:59 09/05/17 08:16 17 GM Acetaminophen (Tylenol Tab) 650 mg Q6H PRN PO 09/04/17 05:45 10/04/17 05:44 Miscellaneous (Tap Water Enema) 1 ea DAILY PRN [place] 09/05/17 09:15 10/05/17 09:14
[2017-09-05] MEDS ORDERED: METO50TA17 PO (15:13)
--- NOTE | 2017-09-05 15:29 | Discharge Instructions ---
Discharge Instructions Date of Service Sep 05, 2017. Admission Reason for Admission: chest pain, high blood pressure . Discharge Discharge Diagnosis / Problem: no sign of heart attack or blood clots in lungs Discharge Goals Goal(s): Improve disease control Activity Recommendations Activity Limitations: resume your previous activity . Instructions / Follow-Up Instructions / Follow-Up APPOINTMENTS: Dr. Gonzalez. Please call her office for an appointment. OTHER INSTRUCTIONS: There was no sign of a heart attack or stroke. Ultrasound showed very small blood clot in your left calf. This may have been there for a long time. No need for blood thinners at this time. You should get a repeat ultrasound if you develop pain or swelling in your leg. Barium test to check your esophagus did not show any blockage or ulcers. CT scan of your abdomen showed constipation. Things that can help: MiraLax as instructed once or twice a day Senokot-S twice a day (stool softener and natural laxative) Warm water enemas CT scan also showed a small kidney stone in the left kidney. Drink plenty of fluids to help prevent kidney stones. You indicated that you are having trouble with your breathing. Please as Dr. Gonzalez to schedule pulmonary function tests to assess your breathing. It is imperative that you do not smoke. You indicated that you sometimes see blood in your stool. There was no blood in the stool sample provided in the hospital. Please as Dr. Gonzalez to schedule a colonoscopy. You indicated that you have lost a lot of weight. Please as Dr. Gonzalez to schedule a colonoscopy as discussed above as well as a low-dose CT scan to screen for lung cancer. Make certain that you are up to date on other cancer screening. Seek medical attention if you have: * temperature above 101 * chest pain or trouble breathing * abdominal pain, nausea, vomiting * diarrhea, dark stools or bloody stools * any unanswered questions or concerns Call 911 if symptoms are severe. Call if you have any questions or problems. You can reach a [facility] hospitalist on duty at [facility] 24 hours a day by calling [phone]. Please take good care of yourself. Bonifacio Esteban . Current Hospital Diet Patient's current hospital diet: AHA Diet (Heart Healthy) Discharge Diet Recommended Diet: AHA Diet (Heart Healthy) Pending Studies Studies pending at discharge: no Laboratory Results Lipid Panel Test 09/03/17 04:40 Range/Units Triglycerides Level 127 0-150 mg/dl Cholesterol Level 232 H 0-200 mg/dl HDL Cholesterol 48 mg/dl Cholesterol/HDL Ratio 4.8 LDL Cholesterol, Calculated 159 mg/dl Medical Emergencies . Who to Call and When: Medical Emergencies: If at any time you feel your situation is an emergency, please call 911 immediately. . Non-Emergent Contact Non-Emergency issues call your: Primary Care Provider, Hospital Doctor . . "Provider Documentation" section prepared by Bonifacio Esteban. . VTE Core Measure Inpt VTE Proph given/why not?: Other Anticoagulation (IV heparin)
[2017-09-05 16:07] VITALS: BP 146/86; PULSE 71; TEMP 36.4; O2SAT 97
[2017-09-05] MEDS ORDERED: METOPROLOL TARTRATE 50 MG TAB PO SCH ×2 (17:15→21:00)
--- NOTE | 2017-09-06 23:04 | Discharge Summary ---
Discharge Summary Date of Service Sep 06, 2017. Discharge Summary Admission Date: Sep 04, 2017 at 14:57 Discharge Date: Sep 05, 2017 Discharge Disposition: Home Principal Diagnosis: chest pain - [place] and PE ruled out OTHER ACUTE DIAGNOSES: hypertensive urgency abdominal pain DVT left peroneal vein, probably chronic, present on admission . 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 Consultations: Psychiatry . Pending Studies/Follow-Up: Please note discussions under "hospital course." . Medication Reconciliation Continued Medications: Metoprolol Tartrate (Metoprolol Tartrate) 50 Mg Tab 50 MG PO BID, #60 TAB 5 Refills (This prescription has been renewed) Admission Information HPI (per Admitting provider): This is a patient with a PMH of HTN, chronic LLE DVT s/p IVF filter), schizoaffective disorder, IBS, PTSD and history of alcohol/drug dependence who presents with worsening chest discomfort. Patient states that she has experienced the feeling that her "lungs are frozen" on and off for months but that it was much more severe today. Patient has been out of her blood pressure medication for a few days and was getting ready to take the bus to [facility] for her prescription when she experiences 8/10 band-like chest discomfort wrapping from anterior to posterior thorax. Describes pain as hot, intense and burning. Worse with movement or inspiration. No radiation to jaw or arms. No diaphoresis , nausea, vomiting. Per chart review, patient has a chronic LLE DVT that has been present since 2002, when an IVC filter was placed. Is allergic to coumadin and lovenox. Unable to give specific reactions during interview. Has a history of schizoaffective disorder and PTSD for which she does not take any medication. Denies SI/HI or auditory/visual hallucinations. Endorses feeling very anxious lately and has been having difficulty sleeping due startling easily with loud noises, shadows, etc. In addition to chest discomfort, SOB and anxiety, patient endorses rhinorrhea, diffuse abdominal pain and pain in her hands. Denies fever, chills, lightheadedness, headache, visual changes, palpitations, nausea, vomiting, dysuria, diarrhea/constipation or LE swelling. BP was elevated to 179/120 in ED. EKG, troponin CXR all within normal limits. . Physical Exam (per Admitting): General Appearance: WD/WN, + mild distress, + pertinent finding (Anxious. Breathing comfortably on room air. ) Head: normocephalic, atraumatic Eyes: normal inspection, PERRL, sclerae normal ENT: normal ENT inspection, hearing grossly normal, pharynx normal (moist mucous membranes ) Neck: supple, thyroid normal, trachea midline Respiratory/Chest: chest non-tender, lungs clear, normal breath sounds, no respiratory distress, no accessory muscle use Cardiovascular: regular rate, rhythm, no murmur, normal peripheral pulses Abdomen/GI: soft, no organomegaly, + tenderness (Diffuse TTP ) Back: normal inspection Extremities/Musculoskelatal: normal inspection, no calf tenderness, no pedal edema Neurologic/Psych: no motor/sensory deficits, alert, oriented x 3, + pertinent finding (Anxious mood. Exaggerated affect. Tangential speech. ) Skin: normal color, warm/dry Hospital Course CHEST PAIN [place] ruled out. EKG in ED demonstrated NSR without acute changes. 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 Pulmonary embolism ruled out by VQ scan. Hypertensive urgency may have been a contributing factor. No significant findings on barium esophagram. Symptoms may be due to anxiety or somatoform disorder as discussed below. DVT LEFT LOWER EXTREMITY (present on admission) DVT left peroneal vein noted on venous duplex as well as chronic fibrin stranding within left common femoral and superficial femoral veins. No LLE symptoms. Acute PE ruled out by VQ scan. Patient initially received IV heparin. History of previous DVT's and PE's. Difficult to determine if left peroneal vein thrombosis noted is chronic or acute. Has been on warfarin and enoxaparin in the past, but they were discontinued due to issues related to compliance and bleeding complications. States that she cannot afford DOAC's. IVC filter placed in 2002. Stopped IV heparin. Check repeat venous duplex as needed for calf pain or swelling. HYPERTENSIVE URGENCY BP 179/120 in ED. Compliance with metoprolol uncertain. BP's improved. Continue metoprolol. DYSPNEA Acute PE ruled out. Most likely secondary to COPD. Outpatient PFT's recommended. Smoking cessation discussed. DYSPHAGIA Patient reports dysphagia associated with weight loss. Barium esophagram showed mild prominence of cricopharyngeus, no significant findings. Tolerated diet. RECTAL BLEEDING Patient reports intermittent rectal bleeding at home. H/H stable on heparin. Stool neg for occult blood. Recommended outpatient colonoscopy. WEIGHT LOSS Patient reports significant weight loss, but unable to quantify. Barium esophagram unrevealing. Colonoscopy recommended as discussed above. Low-dose CT chest for lung cancer screening recommended. Other routine cancer screening per PCP. ANXIETY / DEPRESSION / SCHIZOAFFECTIVE DISORDER History of schizoaffective disorder. Multiple somatic complaints. Psychiatry consult requested, but patient not willing to participate with interview. VTE PROPHYLAXIS Initially received IV heparin. Transitioned to SQ heparin. Ambulate. DISPOSITION Discharged to home. Medical follow-up with Dr Gonzalez with [facility] in [place]. . Total time spent on discharge = 40 min. This includes examination of the patient, discharge planning, medication reconciliation, and communication with other providers. . Discharge Instructions Date of Service Sep 05, 2017. Admission Reason for Admission: chest pain, high blood pressure . Discharge Discharge Diagnosis / Problem: no sign of heart attack or blood clots in lungs Discharge Goals Goal(s): Improve disease control Activity Recommendations Activity Limitations: resume your previous activity . Instructions / Follow-Up Instructions / Follow-Up APPOINTMENTS: Dr. Gonzalez. Please call her office for an appointment. OTHER INSTRUCTIONS: There was no sign of a heart attack or stroke. Ultrasound showed very small blood clot in your left calf. This may have been there for a long time. No need for blood thinners at this time. You should get a repeat ultrasound if you develop pain or swelling in your leg. Barium test to check your esophagus did not show any blockage or ulcers. CT scan of your abdomen showed constipation. Things that can help: MiraLax as instructed once or twice a day Senokot-S twice a day (stool softener and natural laxative) Warm water enemas CT scan also showed a small kidney stone in the left kidney. Drink plenty of fluids to help prevent kidney stones. You indicated that you are having trouble with your breathing. Please as Dr. Gonzalez to schedule pulmonary function tests to assess your breathing. It is imperative that you do not smoke. You indicated that you sometimes see blood in your stool. There was no blood in the stool sample provided in the hospital. Please as Dr. Gonzalez to schedule a colonoscopy. You indicated that you have lost a lot of weight. Please as Dr. Gonzalez to schedule a colonoscopy as discussed above as well as a low-dose CT scan to screen for lung cancer. Make certain that you are up to date on other cancer screening. Seek medical attention if you have: * temperature above 101 * chest pain or trouble breathing * abdominal pain, nausea, vomiting * diarrhea, dark stools or bloody stools * any unanswered questions or concerns Call 911 if symptoms are severe. Call if you have any questions or problems. You can reach a [facility] hospitalist on duty at [facility] 24 hours a day by calling [phone]. Please take good care of yourself. Bonifacio Esteban . Current Hospital Diet Patient's current hospital diet: AHA Diet (Heart Healthy) Discharge Diet Recommended Diet: AHA Diet (Heart Healthy) Pending Studies Studies pending at discharge: no Laboratory Results Lipid Panel Test 09/03/17 04:40 Range/Units Triglycerides Level 127 0-150 mg/dl Cholesterol Level 232 H 0-200 mg/dl HDL Cholesterol 48 mg/dl Cholesterol/HDL Ratio 4.8 LDL Cholesterol, Calculated 159 mg/dl Medical Emergencies . Who to Call and When: Medical Emergencies: If at any time you feel your situation is an emergency, please call 911 immediately. . Non-Emergent Contact Non-Emergency issues call your: Primary Care Provider, Hospital Doctor . . "Provider Documentation" section prepared by Bonifacio Esteban. . VTE Core Measure Inpt VTE Proph given/why not?: Other Anticoagulation (IV heparin) . Additional Copies To Maria Alejandra Gonzalez D.O.
--- NOTE | 2017-09-07 17:24 | Progress Note ---
Progress Note Date of Service Sep 07, 2017. Progress Note Urine culture from 09/04/17 reported today. Growing gamma Strep (not enterococcus). Called patient. No answer. Message left on phone for her to call back. .
--- NOTE | 2017-09-10 12:23 | EDITING REQUIRED CODING QUERY ---
CHEST PAIN To promote full compliance with coding requirements relating to patient care physician participation is requested in all cases of orthopedic coder uncertainty. Please assist us with the question(s) below: Please list a more specific chest pain diagnosis or cause of chest pain if known by placing an X within the parenthesis (x): (x ) Atypical Chest Pain ( ) Chest Wall Pain ( ) Midsternal Chest Pain ( ) Musculoskeletal Chest Pain ( ) Pleuritic Chest Pain ( ) Substernal Chest Pain ( ) Costochondral Chest Pain ( ) Other (please Specify) ( ) Unable to Determine Thank you Errol BYERS CCS
== END 2017-09-05 17:54 | disposition home or self-care (01) | DRG 313 ==
LOC: EDBD 13:44 → C.EDB 13:46 → C.2T 19:32 → ENRESERV 19:47 → C.MS2W 09-03 17:30 → OBSVTOIN 09-04 14:57
PROVIDERS: ADMIT Internal Medicine; ATTEND Hospitalist
DX: R07.89 Other chest pain (principal); I16.0 Hypertensive urgency; I82.5Z2 Chronic embolism and thrombosis of unspecified deep veins of left distal lower extremity; I82.512 Chronic embolism and thrombosis of left femoral vein; I82.812 Embolism and thrombosis of superficial veins of left lower extremity; F10.20 Alcohol dependence, uncomplicated; I10 Essential (primary) hypertension; F25.9 Schizoaffective disorder, unspecified; K58.9 Irritable bowel syndrome, unspecified; Z96.89 Presence of other specified functional implants; F17.200 Nicotine dependence, unspecified, uncomplicated; Z88.0 Allergy status to penicillin; F43.10 Post-traumatic stress disorder, unspecified; F41.9 Anxiety disorder, unspecified; I25.2 Old myocardial infarction; R13.10 Dysphagia, unspecified; F11.10 Opioid abuse, uncomplicated; F13.10 Sedative, hypnotic or anxiolytic abuse, uncomplicated; Z91.19 Patient's noncompliance with other medical treatment and regimen

== ENCOUNTER 2017-09-15 17:48 | Emergency (ER) | payer OTHER ==
[~2017-09-15] VITALS: Ht 157.5 cm; Wt 54.0 kg
[~2017-09-15 17:48] MED LIST changes: -MINEOIL PO
[2017-09-15 17:53] VITALS: TEMP 37; Ht 157.5 cm; Wt 54.0 kg
[2017-09-15] MEDS ORDERED: ACETAMINOPHEN 500 MG TAB PO STA (18:09)
[2017-09-15] MEDS ORDERED: LEVALBUTEROL 1.25MG/0.5ML NEB INH STA (18:09)
[2017-09-15] MEDS ORDERED: IPRATROPIUM BROMIDE NEB SOLN 0.02% 2.5 ML VIAL INH STA (18:09)
[2017-09-15] MEDS ORDERED: SODIUM CHLORIDE 0.9% 1000ML 1,000 ML IV STA (18:09)
[2017-09-15] MEDS ORDERED: ONDANSETRON INJ 2 MG/ML 2 ML VIAL IV STA (18:09)
[2017-09-15] MEDS ORDERED: LORA-741 PO (18:30)
[2017-09-15 18:54] LABS: HEMATOCRIT 37.6 % (37-47); HEMOGLOBIN 13.4 g/dL (12.0-16.0); MEAN CELL VOLUME 90.6 fL (80-100); MEAN CORPUSCULAR HEMOGLOBIN 32.3 pg (25-34); MEAN CORPUSCULAR HGB CONC 35.6 g/dl (32-36); MEAN PLATELET VOLUME 9.5 fL (7.4-10.4); PLATELET COUNT 312 K/uL (130-400); RED CELL DISTRIBUTION WIDTH CV 13.7 % (11.5-14.5); RED CELL DISTRIBUTION WIDTH SD 45.6 fL (36.4-46.3); WHITE BLOOD COUNT 12.23 K/uL (4.8-10.8)
--- NOTE | 2017-09-15 18:59 | EMERGENCY ROOM VISIT NOTE ---
History Report prepared by Gosia: Martita Kinney Under the Supervision of: Dr. Noel Mann M.D. First contact with patient: 18:00 Chief Complaint: ILLNESS Stated Complaint: HEADACHE, NECK & STOMACH PAIN History of Present Illness The patient is a 66 year old female who presents to the Emergency Room with complaints of persistent illness starting 10 days ago. The patient was recently admitted to the hospital for chest pain. She was discharged 11 days ago. She started feeling sick the day after being discharged from the hospital. She reports SOB, nausea, vomiting, productive cough, neck pain, sore throat, ear pain, headache, and chills. She is having difficulty eating and drinking. She reports abdominal spasms. Her urine has been dark. She has not had a fever. She did not get a flu shot this season. She has no known sick contacts. Source of History: patient Onset: 10 days ago Position: other (global) Quality: other (illness) Timing: other (persistent) Associated Symptoms: + chills, + headache, + sorethroat, + cough, + neck pain, + SOB, + nausea, + vomiting, + abdominal pain, No fevers Note: Pt reports ear pain. Review of Systems See HPI for pertinent positives & negatives. A total of 10 systems reviewed and were otherwise negative. Past Medical & Surgical Medical Problems: (1) Abdominal pain (2) Anxiety (3) Chronic pelvic pain of female (4) DVT (deep venous thrombosis) (5) H/O drug abuse (6) Hypertension (7) IBS (8) Posttraumatic stress disorder (9) Schizoaffective disorder (10) Suicide attempt (11) Tobacco abuse Surgical Problems: (1) Cystoscopy (2) h/o inferior vena cava filter placement (3) Tonsillectomy Social History Problems: (1) IVC filter Family History Cancer MOTHER (Colon ) Diabetes mellitus FATHER Endocrine disorder SISTER (Thyroid) FH: mental illness SISTER Heart disease FATHER MOTHER Stroke Social History Smoking Status: Former Smoker Alcohol Use: none Drug Use: none Marital Status: Housing Status: lives alone Occupation Status: disabled Current/Historical Medications Scheduled Lorazepam (Ativan), 0.5 MG PO TID Metoprolol Tartrate (Metoprolol Tartrate), 50 MG PO BID Allergies Coded Allergies: Atropine (Verified Allergy, Severe, castillo, hard time breathing, 09/15/17) Diphenhydramine (Verified Allergy, Severe, "I ALMOST .", 09/15/17) Hyoscyamine (Verified Allergy, Severe, castillo, hard time breathing, 09/15/17) Labetalol (Verified Allergy, Severe, selling,loss of taste,itch, rash, 06/22) Phenobarbital (Verified Allergy, Severe, castillo, hard time breathing, 09/15/17) Prednisone (Verified Allergy, Severe, Edema face,lips and tongue., 09/15/17 ) Meticorten Scopolamine (Verified Allergy, Severe, castillo, hard time breathing, 09/15/17) Enoxaparin (Verified Allergy, Intermediate, RASH, 09/15/17) Levofloxacin (Verified Allergy, Intermediate, ARM TURNED "FIREY RED" WHEN INFUSED, CLEARED IN A FEW HOURS, 09/15/17) Tramadol (Verified Allergy, Intermediate, blisters all over, 09/15/17) Warfarin (Verified Allergy, Intermediate, rash, 09/15/17) Chlorpromazine (Verified Allergy, Mild, TOLERATING PROLIXIN AT HOME , 09/15/17) Penicillins (Verified Allergy, Mild, 09/15/17) Coumarin (Verified Allergy, Unknown, UNKNOWN, 09/15/17) Naproxen (Verified Allergy, Unknown, Unknown, 09/15/17) Morphine (Verified Adverse Reaction, Severe, SHOCK;TOLERATES DEMEROL, 09/15) ABLE TO TAKE DEMEROL WITHOUT DIFFICULTY Aspirin (Verified Adverse Reaction, Intermediate, BLEEDING, 09/15/17) Codeine (Verified Adverse Reaction, Intermediate, BP DROPS AND PASSES OUT, 09/15/17) Replaces CODEINE PHOSP Dicyclomine (Unverified Adverse Reaction, Intermediate, GI SYMPTOMS, ) Ibuprofen (Verified Adverse Reaction, Intermediate, BLEEDING, 09/15/17) Amitriptyline (Verified Adverse Reaction, Mild, Nausea/vomitimg, 09/15/17) Lisinopril (Verified Adverse Reaction, Mild, COUGH, 09/15/17) Nitrofurantoin (Verified Adverse Reaction, Unknown, hallucinating, 09/15/17 ) Physical Exam Vital Signs Date Time Temp Pulse Resp B/P (MAP) Pulse Ox O2 Delivery O2 Flow Rate FiO2 09/15/17 23:04 84 20 137/84 99 2/11/18 21:00 90 20 143/66 98 Room Air 09/15/17 18:34 92 09/15/17 17:53 37.0 93 18 167/90 95 Physical Exam GENERAL: Patient is in no acute distress. HEENT: No acute trauma, normocephalic atraumatic, mucous membranes dry, no nasal congestion, no scleral icterus. Throat erythema without exudate. NECK: No stridor, no adenopathy, no meningismus, trachea is midline. LUNGS: Occasional crackles, no wheezing, breath sounds equal, moist cough noted. HEART: Without murmurs gallops or rubs, regular rate and rhythm. ABDOMEN: Soft, mildly diffusely tender, bowel sounds positive, no hernias, no peritonitis. EXTREMITIES: No cyanosis or edema, full range of motion of all the joints without pain or difficulty, no signs for acute trauma. NEUROLOGIC: Oriented x 3, no acute motor or sensory deficits, no focal weakness. SKIN: No rash, no jaundice, no diaphoresis. Medical Decision & Procedures ER Provider Diagnostic Interpretation: X-ray results as stated below per interpretation by me and the radiologist: CHEST ONE VIEW PORTABLE CLINICAL HISTORY: EVALUATE ALTERED MENTAL STATUS/WEAKNESS dyspnea COMPARISON STUDY: 09/02/2017 FINDINGS: The bones soft tissues and hemidiaphragms are normal. The cardiomediastinal silhouette is normal. The lungs are clear. The pulmonary vasculature is normal. IMPRESSION: Negative chest. The above report was generated using voice recognition software. It may contain grammatical, syntax or spelling errors. Electronically signed by: Anuel Martinez M.D. 09/15/2017 7:16 PM Dictated Date/Time: 09/15/2017 7:16 PM Laboratory Results 09/15/17 18:35 Red Blood Count 4.15, Mean Corpuscular Volume 90.6, Mean Corpuscular Hemoglobin 32.3, Mean Corpuscular Hemoglobin Concent 35.6, Mean Platelet Volume 9.5, Neutrophils (%) (Auto) 71.1, Lymphocytes (%) (Auto) 18.7, Monocytes (%) (Auto) 8.9, Eosinophils (%) (Auto) 0.4, Basophils (%) (Auto) 0.6, Neutrophils # (Auto) 8.69, Lymphocytes # (Auto) 2.29, Monocytes # (Auto) 1.09, Eosinophils # (Auto) 0.05, Basophils # (Auto) 0.07 09/15/17 18:35 Test 09/15/17 18:30 09/15/17 18:35 09/15/17 18:39 09/15/17 20:20 Influenza Type A (RT-PCR) Neg for Influ A (NEG) Influenza Type B (RT-PCR) Neg for Influ B (NEG) White Blood Count 12.23 K/uL (4.8-10.8) Red Blood Count 4.15 M/uL (4.2-5.4) Hemoglobin 13.4 g/dL (12.0-16.0) Hematocrit 37.6 % (37-47) Mean Corpuscular Volume 90.6 fL (80-100) Mean Corpuscular Hemoglobin 32.3 pg (25-34) Mean Corpuscular Hemoglobin Concent 35.6 g/dl (32-36) Platelet Count 312 K/uL (130-400) Mean Platelet Volume 9.5 fL (7.4-10.4) Neutrophils (%) (Auto) 71.1 % Lymphocytes (%) (Auto) 18.7 % Monocytes (%) (Auto) 8.9 % Eosinophils (%) (Auto) 0.4 % Basophils (%) (Auto) 0.6 % Neutrophils # (Auto) 8.69 K/uL (1.4-6.5) Lymphocytes # (Auto) 2.29 K/uL (1.2-3.4) Monocytes # (Auto) 1.09 K/uL (0.11-0.59) Eosinophils # (Auto) 0.05 K/uL (0-0.5) Basophils # (Auto) 0.07 K/uL (0-0.2) RDW Standard Deviation 45.6 fL (36.4-46.3) RDW Coefficient of Variation 13.7 % (11.5-14.5) Immature Granulocyte % (Auto) 0.3 % Immature Granulocyte # (Auto) 0.04 K/uL (0.00-0.02) Giant Platelets 1+ Anion Gap 11.0 mmol/L (3-11) Est Creatinine Clear Calc Drug Dose 76.2 ml/min Estimated GFR () 112.3 Estimated GFR (Non- 96.9 BUN/Creatinine Ratio 18.9 (10-20) Calcium Level 9.1 mg/dl (8.5-10.1) Magnesium Level 2.1 mg/dl (1.8-2.4) Total Bilirubin 0.5 mg/dl (0.2-1) Aspartate Amino Transf (AST/SGOT) 25 U/L (15-37) Alanine Aminotransferase (ALT/SGPT) 50 U/L (12-78) Alkaline Phosphatase 166 U/L (45-117) Troponin I < 0.015 ng/ml (0-0.045) Total Protein 7.9 gm/dl (6.4-8.2) Albumin 3.2 gm/dl (3.4-5.0) Globulin 4.7 gm/dl (2.5-4.0) Albumin/Globulin Ratio 0.7 (0.9-2) Thyroid Stimulating Hormone (TSH) 1.430 uIu/ml (0.300-4.500) Chemistry Specimen Hemolysis Lactic Acid Level 0.9 mmol/L (0.4-2.0) Urine Color YELLOW Urine Appearance CLEAR (CLEAR) Urine pH 6.5 (4.5-7.5) Urine Specific [place] 1.005 (1.000-1.030) Urine Protein NEG (NEG) Urine Glucose (UA) NEG (NEG) Urine Ketones NEG (NEG) Urine Occult Blood NEG (NEG) Urine Nitrite NEG (NEG) Urine Bilirubin NEG (NEG) Urine Urobilinogen NEG (NEG) Urine Leukocyte Esterase NEG (NEG) Laboratory results reviewed by me. Medications Administered Medications (Trade) Dose Ordered Sig/Thiago Route Start Time Stop Time Status Last Admin Dose Admin Ondansetron HCl (Zofran Inj) 4 mg NOW STAT IV 09/15/17 18:09 09/15/17 18:14 DC 09/15/17 18:23 4 MG Sodium Chloride 1,000 ml @ 999 mls/hr Q1H1M STAT IV 09/15/17 18:09 09/15/17 19:09 DC 09/15/17 18:24 999 MLS/HR Levalbuterol (Xopenex 1.25MG/ 0.5ML Neb) 1.25 mg NOW STAT INH 09/15/17 18:09 09/15/17 18:14 DC 09/15/17 18:23 1.25 MG Ipratropium [place] (Atrovent 0.02% 0.5MG/2.5ML Neb) 0.5 mg NOW STAT INH 09/15/17 18:09 09/15/17 18:14 DC 09/15/17 18:23 0.5 MG Acetaminophen (Tylenol Tab) 1,000 mg NOW STAT PO 09/15/17 18:09 09/15/17 18:14 DC 09/15/17 18:23 1,000 MG Sodium Chloride 500 ml @ 999 mls/hr Q31M STAT IV 09/15/17 20:31 09/15/17 21:01 DC 09/15/17 20:31 999 MLS/HR Levalbuterol (Xopenex Hfa Inhaler) 2 puffs NOW STAT INH 09/15/17 22:14 09/15/17 22:15 DC 09/15/17 22:14 2 PUFFS ED Course 1805: The patient was evaluated in room C7. A complete history and physical exam was performed. 1808: Acetaminophen 1000 mg PO, Ipratropium [place] 0.5 mg INH, Levalbuterol 1.25 mg INH, NSS 1000 ml @ 999 mls/hr IV, Zofran Inj 4 mg IV. 2030: NSS 500 ml @ 999 mls/hr IV. 2204: Reevaluated the patient. Discussed results and discharge instructions: She verbalized understanding and agreement. The patient is ready for discharge. 4: Levalbuterol 2 puffs INH. Medical Decision Differential diagnoses considered include influenza or flu like illness, pneumonia, dehydration, electrolyte imbalance, UTI, strep pharyngitis. There is a mild leukocytosis, this could be consistent with infection or the stress of her situation. No significant anemia. No significant electrolyte abnormality, kidney failure or hepatitis. The patient appears to be in a euthyroid state. Lactic acid level is not elevated making sepsis less likely. Chest film does not show pneumonia or CHF. Strep testing was negative. Influenza testing was negative. Urinalysis does not show infection. Blood cultures are pending. The patient received IV saline, oral Tylenol, a Xopenex Atrovent neb, IV Zofran. She is feeling markedly better. The patient appears to have a flulike illness. She will be discharged with a Xopenex inhaler. Tylenol has been suggested for pain, hydration and rest were encouraged. If she is worsening, she can return. She will follow with her doctor as an outpatient. Medication Reconcilliation Current Medication List: was personally reviewed by me Blood Pressure Screening Patient's blood pressure: Elevated blood pressure Blood pressure disposition: Referred to PCP Impression Primary Impression: Flu-like symptoms Scribe Attestation The scribe's documentation has been prepared under my direction and personally reviewed by me in its entirety. I confirm that the note above accurately reflects all work, treatment, procedures, and medical decision making performed by me. Departure Information Dispostion Home / Self-Care Referrals Maria Alejandra Gonzalez D.O. (PCP) Forms HOME CARE DOCUMENTATION FORM, IMPORTANT VISIT INFORMATION, WORK / SCHOOL INSTRUCTIONS Patient Instructions My [facility] Additional Instructions bland diet---crackers, soup, toast, gatorade, rice tylenol for pain use xopenex inhaler 2 puffs every 6 hours for cough and congestion see madhavi jordan---call tomorrow for an appt return if worsening
[2017-09-15 19:13] LABS: ALBUMIN 3.2 gm/dl (3.4-5.0); ALT/SGPT 50 U/L (12-78); AST/SGOT 25 U/L (15-37); BLOOD UREA NITROGEN 11 mg/dl (7-18); CALCIUM 9.1 mg/dl (8.5-10.1); CARBON DIOXIDE 23 mmol/L (21-32); CREATININE 0.59 mg/dl (0.60-1.20); GLUCOSE 97 mg/dl (70-99); POTASSIUM 4.1 mmol/L (3.5-5.1); SODIUM 131 mmol/L (136-145)
--- NOTE | 2017-09-15 19:18 | DIAGNOSTIC IMAGING REPORT ---
CHEST ONE VIEW PORTABLE CLINICAL HISTORY: EVALUATE ALTERED MENTAL STATUS/WEAKNESS dyspnea COMPARISON STUDY: 09/02/2017 FINDINGS: The bones soft tissues and hemidiaphragms are normal. The cardiomediastinal silhouette is normal. The lungs are clear. The pulmonary vasculature is normal. IMPRESSION: Negative chest. The above report was generated using voice recognition software. It may contain grammatical, syntax or spelling errors. Electronically signed by: Anuel Martinez M.D. 09/15/2017 7:16 PM Dictated Date/Time: 09/15/2017 7:16 PM
[2017-09-15 19:20] LABS: BASO % 0.6 %; BASO ABS # 0.07 K/uL (0-0.2); EOS % 0.4 %; EOS ABS # 0.05 K/uL (0-0.5); IG# 0.04 K/uL (0.00-0.02); LYMPH % 18.7 %; LYMPH ABS # 2.29 K/uL (1.2-3.4); MONO % 8.9 %; MONO ABS # 1.09 K/uL (0.11-0.59); NEUT % 71.1 %; NEUT ABS # 8.69 K/uL (1.4-6.5)
[2017-09-15 19:32] LABS: ALKALINE PHOSPHATASE 166 U/L (45-117); TOTAL PROTEIN 7.9 gm/dl (6.4-8.2)
[2017-09-15 19:51] LABS: INFLUENZA A PCR Neg for Influ A (NEG); INFLUENZA B PCR Neg for Influ B (NEG)
[2017-09-15] MEDS ORDERED: SODIUM CHLORIDE 0.9% 500ML 500 ML IV STA (20:31)
[2017-09-15] MEDS ORDERED: LEValbuterol HFA 15GM INHALER INH STA (22:14)
[2017-09-15 23:04] VITALS: BP 137/84; PULSE 84; O2SAT 99
== END 2017-09-15 23:05 | disposition home or self-care (01) ==
LOC: EDBD 17:48 → C.EDC 17:49
DX: R06.02 Shortness of breath (principal); R11.2 Nausea with vomiting, unspecified; R05 Cough; M54.2 Cervicalgia; J02.9 Acute pharyngitis, unspecified; H92.09 Otalgia, unspecified ear; R51 Headache; R68.83 Chills (without fever); F41.9 Anxiety disorder, unspecified; G89.29 Other chronic pain; R10.2 Pelvic and perineal pain; Z86.718 Personal history of other venous thrombosis and embolism; I10 Essential (primary) hypertension; K58.9 Irritable bowel syndrome, unspecified; F43.10 Post-traumatic stress disorder, unspecified; F25.9 Schizoaffective disorder, unspecified; Z87.891 Personal history of nicotine dependence; Z80.0 Family history of malignant neoplasm of digestive organs; Z81.8 Family history of other mental and behavioral disorders; Z83.49 Family history of other endocrine, nutritional and metabolic diseases; Z82.3 Family history of stroke; Z79.899 Other long term (current) drug therapy

== ENCOUNTER 2017-11-11 21:28 | Emergency (ER) | payer OTHER ==
[~2017-11-11] VITALS: Ht 157.5 cm; Wt 57.7 kg
[~2017-11-11 21:28] MED LIST changes: +LORA-741 PO
[2017-11-11 21:30] VITALS: TEMP 36.7; Ht 157.5 cm; Wt 57.7 kg
[2017-11-11 21:44] VITALS: O2SAT 99
[2017-11-11] MEDS ORDERED: ACETAMINOPHEN 500 MG TAB PO STA (22:15)
--- NOTE | 2017-11-11 23:04 | DIAGNOSTIC IMAGING REPORT ---
CT SCAN OF THE RIGHT HIP WITHOUT IV CONTRAST CLINICAL HISTORY: Right hip pain. COMPARISON STUDY: Pelvic CT dated 09/04/2017. TECHNIQUE: CT scan of the right hip is performed from the bony pelvis to the proximal femur. Images are reviewed in the axial, sagittal, and coronal planes. IV contrast was not administered for this examination. A dose lowering technique was utilized adhering to the principles of ALARA. Note that interpretation is suboptimal without plain film correlate. FINDINGS: The skeletal structures are osteopenic. No fracture is identified involving the right hip or the visualized right hemipelvis. No lytic or blastic lesion is seen. The joint space of the hip is preserved. The regional musculature is normal in appearance. There is no right inguinal or pelvic sidewall adenopathy. The bladder is normal as visualized. IMPRESSION: Osteopenia with no osseous abnormality identified in the right hip. Electronically signed by: Noel Ford M.D. 11/11/2017 11:03 PM Dictated Date/Time: 11/11/2017 11:01 PM
--- NOTE | 2017-11-11 23:07 | DIAGNOSTIC IMAGING REPORT ---
CT SCAN OF THE LUMBAR SPINE WITHOUT IV CONTRAST CLINICAL HISTORY: Low back pain. COMPARISON STUDY: MRI of the lumbar spine dated 03/19/2012. Radiographs of the lumbar spine dated 03/28/2013. Abdominal CT dated 09/04/2017. TECHNIQUE: CT scan of the lumbar spine is performed from the lower thoracic spine to the sacrum. Images are reviewed in the axial, sagittal, and coronal planes. IV contrast was not administered for this examination. A dose lowering technique was utilized adhering to the principles of ALARA. CT DOSE: 583.35 mGy.cm FINDINGS: The skeletal structures are osteopenic. There is no radiographic evidence of fracture or malalignment involving the lumbar spine. There is a mild chronic compression deformity of T12. Vertebral body height and alignment are maintained throughout the lumbar spine. No lytic or blastic lesion is seen. The transverse and spinous processes are intact. There is no evidence of spondylolysis. The intervertebral disc spaces are maintained. There is no CT evidence of large disc herniation or central canal stenosis. The visualized sacrum and bony pelvis appear intact. The paraspinous soft tissues are normal as visualized. The abdominal aorta is normal in caliber, noting moderate to advanced atherosclerotic calcification. There are at least [address] There is mild left-sided hydronephrosis which is only partially visualized. The visualized left ureter is normal in caliber. IMPRESSION: 1. Osteopenia with no acute bony abnormality seen involving the lumbar spine. 2. A mild chronic compression deformity of T12 is unchanged from previous. 3. There is mild left-sided hydronephrosis. The imaged left ureter is normal in caliber and this is of indeterminant significance, but appears new from 09/04/2017. Dictated: 11/11/2017 10:50 PM Transcribed: 11/11/2017 11:07 PM [email or web address] Electronically signed by: Noel Ford M.D. 11/11/2017 11:08 PM Dictated Date/Time: 11/11/2017 10:50 PM
[2017-11-11 23:58] VITALS: BP 212/93; PULSE 78; O2SAT 97
[2017-11-12] MEDS ORDERED: METO50TA16 PO (00:32)
--- NOTE | 2017-11-12 06:17 | EMERGENCY ROOM VISIT NOTE ---
History First contact with patient: 22:12 Chief Complaint: GROIN PAIN Stated Complaint: LOWER AB & R HIP PAIN History of Present Illness The patient is a 67 year old female who presents to the Emergency Room with complaints of low back pain that radiates to her right hip for the past week described as aching, ranging severity 7 out of 10. Movement makes it worse nothing makes it better. Patient states her family care doctor told her to go to the ER. She has not tried anything for the pain. She is able to ambulate. There was no fall. Patient denies loss of bowel or bladder control, saddle anesthesia, fever, chills, IV drug abuse, abdominal pain. Patient states she is concerned she might have another blood clot. She states last time she had pain here she had a blood clot. Review of Systems An 10 system review of systems was completed with positives and pertinent negatives listed in the HPI. Past Medical/Surgical History Medical Problems: (1) Abdominal pain (2) Anxiety (3) Chronic pelvic pain of female (4) DVT (deep venous thrombosis) (5) H/O drug abuse (6) Hypertension (7) IBS (8) Posttraumatic stress disorder (9) Schizoaffective disorder (10) Suicide attempt (11) Tobacco abuse Surgical Problems: (1) Cystoscopy (2) h/o inferior vena cava filter placement (3) Tonsillectomy Social History Problems: (1) IVC filter Family History Cancer MOTHER (Colon ) Diabetes mellitus FATHER Endocrine disorder SISTER (Thyroid) FH: mental illness SISTER Heart disease FATHER MOTHER Stroke Social History Smoking Status: Former Smoker Alcohol Use: none Drug Use: none Marital Status: Housing Status: lives alone Occupation Status: disabled Current/Historical Medications Scheduled Lorazepam (Ativan), 0.5 MG PO TID Metoprolol Tartrate (Lopressor) (Lopressor), 50 MG PO BID Physical Exam Vital Signs Date Time Temp Pulse Resp B/P (MAP) Pulse Ox O2 Delivery O2 Flow Rate FiO2 11/11/17 23:58 78 19 212/93 97 Room Air 11/11/17 22:52 78 20 179/86 96 Room Air 11/11/17 22:04 89 11/11/17 21:44 99 Room Air 11/11/17 21:30 36.7 103 20 218/113 99 Room Air Physical Exam VITALS: Vitals are noted on the nurse's note and reviewed by myself. Vital signs stable. GENERAL: White female moving all extremities walking to and from the bathroom, in no acute distress, nondiaphoretic, well-developed well-nourished. SKIN: Capillary reflex less than 2 seconds. HEENT: Normocephalic. PERRLA. EOMI. Nares patent. Mucous membranes moist. Neck is supple without nuchal rigidity. HEART: Regular rate and rhythm without murmurs gallops or rubs. LUNGS: Clear to auscultation bilaterally without wheezes, rales or rhonchi. No retractions or accessory muscle use. ABDOMEN: Positive bowel sounds x 4. Normal tympanic percussion. Soft, nontender, without masses or organomegaly. Ghosh sign negative. No guarding or rebound tenderness. No CVA tenderness MUSCULOSKELETAL: No thoracic tenderness. Minimal lumbar tenderness on exam without step-offs. Pelvis stable. Right hip tender to palpation with increased pain with range of motion. No gross musculoskeletal defects. No pedal edema. No calf tenderness. NEURO: Patient was alert and oriented to person place and time. Normal sensation to light and sharp touch. Deep tendon reflexes 2+ patella bilaterally. No focal neurological deficits. Medical Decision & Procedures Laboratory Results Test 11/11/17 22:40 Urine Color YELLOW Urine Appearance CLEAR (CLEAR) Urine pH 7.5 (4.5-7.5) Urine Specific [place] 1.007 (1.000-1.030) Urine Protein NEG (NEG) Urine Glucose (UA) NEG (NEG) Urine Ketones NEG (NEG) Urine Occult Blood NEG (NEG) Urine Nitrite NEG (NEG) Urine Bilirubin NEG (NEG) Urine Urobilinogen NEG (NEG) Urine Leukocyte Esterase NEG (NEG) Urine WBC (Auto) 1-5 /hpf (0-5) Urine RBC (Auto) 5-10 /hpf (0-4) Urine Hyaline Casts (Auto) 0 /lpf (0-5) Urine Epithelial Cells (Auto) 5-10 /lpf (0-5) Urine Bacteria (Auto) NEG (NEG) ED Course Prior records/ancillary studies reviewed. Triage Nursing notes reviewed. The patient's history was concerning for right hip and back pain. Differential diagnosis: Etiologies such as musculoskeletal, disc herniation, fracture, aortic disease, metastatic disease, cord compression, discitis, infection, renal colic, gastrointestinal, acute exacerbation of chronic back pain, sciatica, cauda equina, DVT, as well as others were entertained. Physical findings: As above. No focal neurologic findings noted. ER treatment provided: Patient refused Tylenol On reassessment the patient felt better. Diagnostics interpreted by me: Patient refused lab Imaging studies: Ultrasound was negative for DVT CT SCAN OF THE LUMBAR SPINE WITHOUT IV CONTRAST CLINICAL HISTORY: Low back pain. COMPARISON STUDY: MRI of the lumbar spine dated 03/19/2012. Radiographs of the lumbar spine dated 03/28/2013. Abdominal CT dated 09/04/2017. TECHNIQUE: CT scan of the lumbar spine is performed from the lower thoracic spine to the sacrum. Images are reviewed in the axial, sagittal, and coronal planes. IV contrast was not administered for this examination. A dose lowering technique was utilized adhering to the principles of ALARA. CT DOSE: 583.35 mGy.cm FINDINGS: The skeletal structures are osteopenic. There is no radiographic evidence of fracture or malalignment involving the lumbar spine. There is a mild chronic compression deformity of T12. Vertebral body height and alignment are maintained throughout the lumbar spine. No lytic or blastic lesion is seen. The transverse and spinous processes are intact. There is no evidence of spondylolysis. The intervertebral disc spaces are maintained. There is no CT evidence of large disc herniation or central canal stenosis. The visualized sacrum and bony pelvis appear intact. The paraspinous soft tissues are normal as visualized. The abdominal aorta is normal in caliber, noting moderate to advanced atherosclerotic calcification. There are at least [address] There is mild left-sided hydronephrosis which is only partially visualized. The visualized left ureter is normal in caliber. IMPRESSION: 1. Osteopenia with no acute bony abnormality seen involving the lumbar spine. 2. A mild chronic compression deformity of T12 is unchanged from previous. 3. There is mild left-sided hydronephrosis. The imaged left ureter is normal in caliber and this is of indeterminant significance, but appears new from 09/04/2017. Dictated: 11/11/2017 10:50 PM Transcribed: 11/11/2017 11:[address] SCAN OF THE RIGHT HIP WITHOUT IV CONTRAST CLINICAL HISTORY: Right hip pain. COMPARISON STUDY: Pelvic CT dated 09/04/2017. TECHNIQUE: CT scan of the right hip is performed from the bony pelvis to the proximal femur. Images are reviewed in the axial, sagittal, and coronal planes. IV contrast was not administered for this examination. A dose lowering technique was utilized adhering to the principles of ALARA. Note that interpretation is suboptimal without plain film correlate. FINDINGS: The skeletal structures are osteopenic. No fracture is identified involving the right hip or the visualized right hemipelvis. No lytic or blastic lesion is seen. The joint space of the hip is preserved. The regional musculature is normal in appearance. There is no right inguinal or pelvic sidewall adenopathy. The bladder is normal as visualized. IMPRESSION: Osteopenia with no osseous abnormality identified in the right hip. Electronically signed by: Noel Ford M.D. Patient began to argue and demand something else for pain. She was informed she is on Tylenol. She then demanded to leave. Patient was informed she is at risk for infection, heart attack and/or . Patient has not been taking her blood pressure medication. She is strongly encouraged to take this. Patient was informed to follow-up tomorrow with her family care doctor for further evaluation treatment for her ongoing symptoms this past week. Patient was neurovascularly and neurologically intact. She did sign out AGAINST MEDICAL ADVICE. Patient refused to let the nurse do any blood work. She demanded IV team to do her blood work. She was informed it is a very busy ER and there are 3 hour waiting times on patients. The nurses present for the AMA. Patient then went out to the waiting room and walked around and sat up there for a few hours before she decided to leave. She informed the nurse that she will come back at a later time when I am no longer working as I would not give her pain meds. She was strongly informed that narcotics are not beneficial for chronic pain. Once again she was informed to follow with the family care doctor or return here for further evaluation workup. This appears to be consistent with low back pain with right hip pain. Patient had no acute fracture on imaging. She refused laboratory testing. The pt informed about the findings as listed above. Return instructions were outlined and the patient was discharged in stable condition. Referral: The patient was referred back to primary care physician for follow-up in 2 to 3 days for a recheck of the current condition. Case reviewed with my attending The chart was completed utilizing [employer] voice recognition software. Grammatical errors, random word insertions, pronoun errors, and incomplete sentences are an occassional consequence of this system due to software limitations, ambient noise, and hardware issues. Any formal questions or concerns about the content, text, or information contained within the body of this dictation should be directly addressed to the physician electrical assistant for clarification. Medical Decision As above Medication Reconcilliation Current Medication List: was personally reviewed by me Blood Pressure Screening Patient's blood pressure: Elevated blood pressure Blood pressure disposition: Referred to PCP Impression Primary Impression: High blood pressure Additional Impressions: Low back pain Right hip pain Departure Information Dispostion Against Medical Advice Condition GOOD Forms WORK / SCHOOL INSTRUCTIONS, HOME CARE DOCUMENTATION FORM, IMPORTANT VISIT INFORMATION Patient Instructions High Blood Pressure, My [facility] [employer] Additional Instructions DO NOT drive, drink alcohol, operate machinery, or perform dangerous activities today. You were given medications in the ER that can affect your ability to safely function or operate a vehicle. Monitor your blood pressure. It was high today. You left AGAINST MEDICAL ADVICE. Your you are at risk for infection, electrolyte abnormalities and/or . Acetaminophen(Tylenol) may be used for fever or pain. Use 1000mg every six hours as needed. Avoid using more than 3000mg in a 24 hour period. This medication can be taken if you need to drive, work, or perform activities which may be dangerous when taking narcotic pain medication. Rest and avoid heavy lifting until your symptoms resolve and then gradually return to full activity. A good rule of thumb is if it hurts your back to perform a certain activity, then it should be avoided until you are healthy again. A heating pad, warm compresses, or a hot shower may help with tight muscles and can be done several times a day as needed. Continue current medications. Return to the ER immediately for any numbness, tingling, severe pain, loss of control of your bowels or bladder, inability to walk, or as needed. Follow up with your primary care physician within 1-2 days for a recheck of your current condition. Problem Qualifiers Primary Impression: High blood pressure Hypertension type: unspecified Qualified Codes: I10 - Essential (primary) hypertension
--- NOTE | 2017-11-12 06:53 | DIAGNOSTIC IMAGING REPORT ---
RIGHT LOWER EXTREMITY VENOUS DOPPLER CLINICAL HISTORY: Right leg pain. COMPARISON STUDY: Bilateral lower extremity venous Doppler September 02, 2017. TECHNIQUE: Sonography of the deep venous system of the right lower extremity was performed. Compression and augmentation were evaluated. FINDINGS: This exam was compromised due to to suboptimal penetration and motion during the exam. The common femoral, superficial femoral and popliteal veins were compressible. Augmentation was normal. Flow was shown within the deep calf vessels. IMPRESSION: Technically difficult exam but no evidence of deep venous thrombus within the right lower extremity. Electronically signed by: Papa Nur M.D. 11/12/2017 6:51 AM Dictated Date/Time: 11/12/2017 6:50 AM
== END 2017-11-12 00:37 | disposition left against medical advice (07) ==
LOC: EDBD 21:28 → C.EDA 21:29
DX: I10 Essential (primary) hypertension (principal); M54.5 Low back pain; F41.9 Anxiety disorder, unspecified; M25.551 Pain in right hip; Z86.718 Personal history of other venous thrombosis and embolism; Z91.5 Personal history of self-harm; Z87.891 Personal history of nicotine dependence; Z90.89 Acquired absence of other organs; Z98.890 Other specified postprocedural states; Z80.0 Family history of malignant neoplasm of digestive organs; Z83.3 Family history of diabetes mellitus; Z82.3 Family history of stroke; Z79.899 Other long term (current) drug therapy

== ENCOUNTER 2017-11-12 08:26 | Emergency (ER) | payer OTHER ==
[~2017-11-12 08:26] MED LIST changes: +METO50TA16 PO
[2017-11-12 08:31] VITALS: PULSE 102; TEMP 36.5
--- NOTE | 2017-11-12 09:30 | EMERGENCY ROOM VISIT NOTE ---
History First contact with patient: 08:36 Chief Complaint: OTHER COMPLAINT Stated Complaint: HYPERTENSION, PAIN IN HIP History of Present Illness The patient is a 67 year old female who presents to the Emergency Room with complaints of RLQ abdominal pain for a long time. Pt also reports hx of HLD, HTN , DVT in L groin region in 2002 (with IVC filter placement), and COPD. Reports pain is 10/10 and sharp/piercing in nature. Associated with panic attacks ( palpitations, sob) because she is scared when she gets the pain. Pt also reports difficulty walking due to pain and is sitting in a wheelchair, and chronic sob due to COPD and constipation. Denies any n/v, dysuria. Pt reports having a lot of stress: she is on disability, lives in a trailer and faces eviction, threat of utilities being discontinued and does not have insurance which makes it hard for her to afford her medications. But she has been taking her metoprolol even more than twice a day as prescribed as her BP goes up due to pain. Of note: pt was evaluated in the ED yesterday for R hip pain and had a normal for age hip CT, lumbar XR and R leg US that ruled out a DVT; pt checked out AMA at 1am because she was told to "take tylenol and got upset". Review of Systems see below Constitutional: No fever Respiratory: + shortness of breath Cardiovascular: No chest pain Abdomen: + pain, + constipation (chronic), No nausea, No vomiting Genitourinary - Female: No dysuria Past Medical/Surgical History Medical Problems: (1) Abdominal pain (2) Anxiety (3) Chronic pelvic pain of female (4) DVT (deep venous thrombosis) (5) H/O drug abuse (6) Hypertension (7) IBS (8) Posttraumatic stress disorder (9) Schizoaffective disorder (10) Suicide attempt (11) Tobacco abuse Surgical Problems: (1) Cystoscopy (2) h/o inferior vena cava filter placement (3) Tonsillectomy Social History Problems: (1) IVC filter Family History Cancer MOTHER (Colon ) Diabetes mellitus FATHER Endocrine disorder SISTER (Thyroid) FH: mental illness SISTER Heart disease FATHER MOTHER Stroke Social History Smoking Status: Former Smoker Alcohol Use: none Drug Use: none Marital Status: Housing Status: lives alone Occupation Status: disabled Current/Historical Medications Scheduled Lorazepam (Ativan), 0.5 MG PO TID Metoprolol Tartrate (Lopressor) (Lopressor), 50 MG PO BID Physical Exam Vital Signs Date Time Temp Pulse Resp B/P (MAP) Pulse Ox O2 Delivery O2 Flow Rate FiO2 11/12/17 10:40 82 156/94 97 Room Air 11/12/17 08:31 36.5 102 20 198/99 100 Room Air Physical Exam see below General Appearance: + pertinent finding (pt appears anxious ) Head: normocephalic, atraumatic Eyes: normal inspection ENT: normal ENT inspection Neck: supple Respiratory/Chest: lungs clear, normal breath sounds Cardiovascular: no murmur, + tachycardia Abdomen / GI: normal bowel sounds, soft, + tenderness (RLQ and LLQ), + pertinent finding (no rebound tenderness; +psoas sign) Back: no CVA tenderness Extremities: normal inspection, no pedal edema Neurologic/Psych: alert, oriented x 3 Medical Decision & Procedures Laboratory Results 11/12/17 09:37 Red Blood Count 4.79, Mean Corpuscular Volume 90.4, Mean Corpuscular Hemoglobin 31.7, Mean Corpuscular Hemoglobin Concent 35.1, Mean Platelet Volume 9.1, Neutrophils (%) (Auto) 54.4, Lymphocytes (%) (Auto) 31.9, Monocytes (%) (Auto) 9.1, Eosinophils (%) (Auto) 3.9, Basophils (%) (Auto) 0.5, Neutrophils # (Auto) 4.79, Lymphocytes # (Auto) 2.80, Monocytes # (Auto) 0.80, Eosinophils # (Auto) 0.34, Basophils # (Auto) 0.04 11/12/17 09:37 Test 11/12/17 09:37 White Blood Count 8.79 K/uL (4.8-10.8) Red Blood Count 4.79 M/uL (4.2-5.4) Hemoglobin 15.2 g/dL (12.0-16.0) Hematocrit 43.3 % (37-47) Mean Corpuscular Volume 90.4 fL (80-100) Mean Corpuscular Hemoglobin 31.7 pg (25-34) Mean Corpuscular Hemoglobin Concent 35.1 g/dl (32-36) Platelet Count 346 K/uL (130-400) Mean Platelet Volume 9.1 fL (7.4-10.4) Neutrophils (%) (Auto) 54.4 % Lymphocytes (%) (Auto) 31.9 % Monocytes (%) (Auto) 9.1 % Eosinophils (%) (Auto) 3.9 % Basophils (%) (Auto) 0.5 % Neutrophils # (Auto) 4.79 K/uL (1.4-6.5) Lymphocytes # (Auto) 2.80 K/uL (1.2-3.4) Monocytes # (Auto) 0.80 K/uL (0.11-0.59) Eosinophils # (Auto) 0.34 K/uL (0-0.5) Basophils # (Auto) 0.04 K/uL (0-0.2) RDW Standard Deviation 44.4 fL (36.4-46.3) RDW Coefficient of Variation 13.4 % (11.5-14.5) Immature Granulocyte % (Auto) 0.2 % Immature Granulocyte # (Auto) 0.02 K/uL (0.00-0.02) Anion Gap 9.0 mmol/L (3-11) Estimated GFR () 96.9 Estimated GFR (Non- 83.6 BUN/Creatinine Ratio 14.8 (10-20) Calcium Level 10.0 mg/dl (8.5-10.1) Total Bilirubin 0.3 mg/dl (0.2-1) Aspartate Amino Transf (AST/SGOT) 33 U/L (15-37) Alanine Aminotransferase (ALT/SGPT) 64 U/L (12-78) Alkaline Phosphatase 95 U/L (45-117) C-Reactive Protein < 0.29 mg/dl (0-0.29) Total Protein 8.3 gm/dl (6.4-8.2) Albumin 4.4 gm/dl (3.4-5.0) Globulin 3.9 gm/dl (2.5-4.0) Albumin/Globulin Ratio 1.1 (0.9-2) ED Course Evaluated pt in A2 at 0900 Medical Decision 67y/oF with hx of HTN, HLD, DVT, and COPD presents with RLQ abdominal pain concerning for possible appendicitis vs. abdominal muscle spasm due to anxiety vs. chronic pelvic pain vs. IBD. Given negative abdominal CT which is diagnostic for appendicitis and normal CRP, appendicitis ruled out. Moderate stool burden could be causing patient some discomfort which appears to be chronic in nature based on history. -Ordered CBC, CMP, CRP - wnl -Abdominal/Pelvis CT - no acute intraabdominal pathology, moderate stool burden -Pt reassured and discharged in stable condition Impression Primary Impression: Constipation Departure Information Dispostion Home / Self-Care Condition GOOD Referrals Maria Alejandra Gonzalez D.O. (PCP) Patient Instructions My [facility]
[2017-11-12 09:44] LABS: BASO % 0.5 %; BASO ABS # 0.04 K/uL (0-0.2); EOS % 3.9 %; EOS ABS # 0.34 K/uL (0-0.5); HEMATOCRIT 43.3 % (37-47); HEMOGLOBIN 15.2 g/dL (12.0-16.0); IG# 0.02 K/uL (0.00-0.02); LYMPH % 31.9 %; MEAN CELL VOLUME 90.4 fL (80-100); MEAN CORPUSCULAR HEMOGLOBIN 31.7 pg (25-34); MEAN CORPUSCULAR HGB CONC 35.1 g/dl (32-36); MEAN PLATELET VOLUME 9.1 fL (7.4-10.4); MONO % 9.1 %; NEUT % 54.4 %; NEUT ABS # 4.79 K/uL (1.4-6.5); PLATELET COUNT 346 K/uL (130-400); RED CELL DISTRIBUTION WIDTH CV 13.4 % (11.5-14.5); RED CELL DISTRIBUTION WIDTH SD 44.4 fL (36.4-46.3); WHITE BLOOD COUNT 8.79 K/uL (4.8-10.8)
[2017-11-12 10:05] LABS: ALBUMIN 4.4 gm/dl (3.4-5.0); ALKALINE PHOSPHATASE 95 U/L (45-117); ALT/SGPT 64 U/L (12-78); AST/SGOT 33 U/L (15-37); BLOOD UREA NITROGEN 11 mg/dl (7-18); CARBON DIOXIDE 25 mmol/L (21-32); CREATININE 0.75 mg/dl (0.60-1.20); GLUCOSE 98 mg/dl (70-99); SODIUM 135 mmol/L (136-145); TOTAL PROTEIN 8.3 gm/dl (6.4-8.2)
--- NOTE | 2017-11-12 10:36 | DIAGNOSTIC IMAGING REPORT ---
ABD/PELVIS WITHOUT FOR STONE CLINICAL HISTORY: 67 years-old Female presenting with rlq pain, bloody stool. TECHNIQUE: Multidetector CT of the abdomen and pelvis was performed without the use of intravenous contrast. IV contrast: None. A dose lowering technique was used consistent with the principles of ALARA (as low as reasonably achievable). COMPARISON: 09/04/2017. CT DOSE (mGy.cm): The estimated cumulative dose is 584.36 mGy.cm. FINDINGS: Director Of Housing topogram: 2 IVC filters noted. Lung bases: Minimal basilar opacities, likely atelectasis. Coronary artery and mitral annular calcification. Normal heart size. No pericardial or pleural effusion. Liver: Normal morphology. Normal density. Biliary: No gross biliary ductal dilatation allowing for noncontrast technique. Layering subtle hyperdensity may suggest gallbladder sludge. Pancreas: Normal. Spleen: Normal. Adrenal glands: Normal. Kidneys and ureters: Focal calcification in the region of the left renal pelvis is most likely vascular in etiology. No convincing evidence of nephrolithiasis. Mild urothelial thickening bilaterally. The right ureter appears to transit between tines of the left gonadal vein filter. Ureters otherwise normal. Bladder: Normal. Pelvic organs: Normal noncontrast appearance. Bowel: Evaluation for gastrointestinal hemorrhage is limited by absence of intravenous contrast. Moderate stool burden in the right and transverse colon as on prior exam. The appendix is normal. No bowel obstruction. Trace hiatal hernia may be present. Peritoneal cavity: No free fluid or intraperitoneal gas. Lymph nodes: No gross lymphadenopathy allowing for noncontrast technique. Vasculature: Atherosclerosis of the normal caliber abdominal aorta. An IVC filter is in place in the left gonadal vein. Tines are largely extraluminal, unchanged. A second more superior IVC filter is in place in the suprarenal IVC. Abdominal wall: Normal. Musculoskeletal: Osteopenia. IMPRESSION: 1. No acute intra-abdominal pathology. 2. Moderate stool burden in the right and transverse colon compatible with constipation. 3. The right ureter transits between tines of the left gonadal vein filter. No hydronephrosis. No nephrolithiasis. 4. Questionable gallbladder sludge. Electronically signed by: Graham Atkins M.D. 11/12/2017 10:34 AM Dictated Date/Time: 11/12/2017 10:28 AM
[2017-11-12 10:40] VITALS: BP 156/94; O2SAT 97
--- NOTE | 2017-11-12 11:53 | EMERGENCY ROOM VISIT NOTE ---
History Report prepared by Gosia: Martita Kinney Under the Supervision of: Dr. Harpreet Sma D.O. 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 The patient was seen in the ED last night for RLE pain. She signed out AMA. She returns for sharp RLQ abdominal pain which concerns her for a blood clot. She notes a history of blood clots and IVC filter placement. She reports SOB and palpitations which she attributes to feeling anxious about the pain. She denies any nausea, vomiting, or urinary symptoms. She has a history of COPD. She notes that she is having financial issues and faces eviction. 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 Review of Systems See HPI for pertinent positives & negatives. A total of 10 systems reviewed and were otherwise negative. Past Medical & Surgical Medical Problems: (1) Abdominal pain (2) Anxiety (3) Chronic pelvic pain of female (4) DVT (deep venous thrombosis) (5) H/O drug abuse (6) Hypertension (7) IBS (8) Posttraumatic stress disorder (9) Schizoaffective disorder (10) Suicide attempt (11) Tobacco abuse Surgical Problems: (1) Cystoscopy (2) h/o inferior vena cava filter placement (3) Tonsillectomy Social History Problems: (1) IVC filter Family History Cancer MOTHER (Colon ) Diabetes mellitus FATHER Endocrine disorder SISTER (Thyroid) FH: mental illness SISTER Heart disease FATHER MOTHER Stroke Social History Smoking Status: Former Smoker Alcohol Use: none Drug Use: none Marital Status: Housing Status: lives alone Occupation Status: disabled Current/Historical Medications Scheduled Lorazepam (Ativan), 0.5 MG PO TID Metoprolol Tartrate (Lopressor) (Lopressor), 50 MG PO BID Allergies Coded Allergies: Atropine (Verified Allergy, Severe, castillo, hard time breathing, 11/12/17) Clonidine (Unverified Allergy, Severe, RAISES B.P., ANXIOUSNESS, 11/12/17) Diphenhydramine (Verified Allergy, Severe, "I ALMOST .", 11/12/17) Hyoscyamine (Verified Allergy, Severe, castillo, hard time breathing, 11/12/17) Labetalol (Verified Allergy, Severe, selling,loss of taste,itch, rash, 05/22) Phenobarbital (Verified Allergy, Severe, castillo, hard time breathing, 11/12/17) Prednisone (Verified Allergy, Severe, Edema face,lips and tongue., 11/12/17 ) Meticorten Scopolamine (Verified Allergy, Severe, castillo, hard time breathing, 11/12/17) Enoxaparin (Verified Allergy, Intermediate, RASH, 11/12/17) Levofloxacin (Verified Allergy, Intermediate, ARM TURNED "FIREY RED" WHEN INFUSED, CLEARED IN A FEW HOURS, 11/12/17) Tramadol (Verified Allergy, Intermediate, blisters all over, 11/12/17) Warfarin (Verified Allergy, Intermediate, rash, 11/12/17) Chlorpromazine (Verified Allergy, Mild, TOLERATING PROLIXIN AT HOME , 11/12/17) Penicillins (Verified Allergy, Mild, 11/12/17) Coumarin (Verified Allergy, Unknown, UNKNOWN, 11/12/17) Naproxen (Verified Allergy, Unknown, Unknown, 11/12/17) Morphine (Verified Adverse Reaction, Severe, SHOCK;TOLERATES DEMEROL, 11/12) ABLE TO TAKE DEMEROL WITHOUT DIFFICULTY Aspirin (Verified Adverse Reaction, Intermediate, BLEEDING, 11/12/17) Codeine (Verified Adverse Reaction, Intermediate, BP DROPS AND PASSES OUT, 11/12/17) Replaces CODEINE PHOSP Dicyclomine (Verified Adverse Reaction, Intermediate, GI SYMPTOMS, 11/12/17 ) Ibuprofen (Verified Adverse Reaction, Intermediate, BLEEDING, 11/12/17) Amitriptyline (Verified Adverse Reaction, Mild, Nausea/vomitimg, 11/12/17) Lisinopril (Verified Adverse Reaction, Mild, COUGH, 11/12/17) Nitrofurantoin (Verified Adverse Reaction, Unknown, hallucinating, 11/12/17 ) Physical Exam Vital Signs Date Time Temp Pulse Resp B/P (MAP) Pulse Ox O2 Delivery O2 Flow Rate FiO2 11/12/17 10:40 82 156/94 97 Room Air 11/12/17 08:31 36.5 102 20 198/99 100 Room Air Physical Exam CONSTITUTIONAL/VITAL SIGNS: Reviewed / noted above. GENERAL: Non-toxic in appearance. INTEGUMENTARY: Warm, dry, and [place]. HEAD: Normocephalic. EYES: without scleral icterus or trauma. ENT/OROPHARYNX: clear and moist. LYMPHADENOPATHY/NECK: Is supple without lymphadenopathy or meningismus. RESPIRATORY: Lungs clear and equal. CARDIOVASCULAR: Regular rate and rhythm. GI/ABDOMEN: Soft and nontender. No organomegaly or pulsatile mass. No rebound or guarding. Normal bowel sounds. EXTREMITIES: Warm and well perfused. BACK: No CVA tenderness. NEUROLOGICAL: Intact without focal deficits. PSYCHIATRIC: normal affect. MUSCULOSKELETAL: Normally developed with good muscle tone. Medical Decision & Procedures ER Provider Diagnostic Interpretation: Radiology results as stated below per my review and radiologist interpretation: ABD/PELVIS WITHOUT FOR STONE CLINICAL HISTORY: 67 years-old Female presenting with rlq pain, bloody stool. TECHNIQUE: Multidetector CT of the abdomen and pelvis was performed without the use of intravenous contrast. IV contrast: None. A dose lowering technique was used consistent with the principles of ALARA (as low as reasonably achievable). COMPARISON: 09/04/2017. CT DOSE (mGy.cm): The estimated cumulative dose is 584.36 mGy.cm. 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 Lung bases: Minimal basilar opacities, likely atelectasis. Coronary artery and mitral annular calcification. Normal heart size. No pericardial or pleural effusion. Liver: Normal morphology. Normal density. Biliary: No gross biliary ductal dilatation allowing for noncontrast technique. Layering subtle hyperdensity may suggest gallbladder sludge. Pancreas: Normal. Spleen: Normal. Adrenal glands: Normal. Kidneys and ureters: Focal calcification in the region of the left renal pelvis is most likely vascular in etiology. No convincing evidence of nephrolithiasis. Mild urothelial thickening bilaterally. The right ureter appears to transit between tines of the left gonadal vein filter. Ureters otherwise normal. Bladder: Normal. Pelvic organs: Normal noncontrast appearance. Bowel: Evaluation for gastrointestinal hemorrhage is limited by absence of intravenous contrast. Moderate stool burden in the right and transverse colon as on prior exam. The appendix is normal. No bowel obstruction. Trace hiatal hernia may be present. Peritoneal cavity: No free fluid or intraperitoneal gas. Lymph nodes: No gross lymphadenopathy allowing for noncontrast technique. Vasculature: Atherosclerosis of the normal caliber abdominal aorta. An IVC filter is in place in the left gonadal vein. Tines are largely extraluminal, unchanged. A second more superior IVC filter is in place in the suprarenal IVC. Abdominal wall: Normal. Musculoskeletal: Osteopenia. IMPRESSION: 1. No acute intra-abdominal pathology. 2. Moderate stool burden in the right and transverse colon compatible with constipation. 3. The right ureter transits between tines of the left gonadal vein filter. No hydronephrosis. No nephrolithiasis. 4. Questionable gallbladder sludge. Electronically signed by: Graham Atkins M.D. 11/12/2017 10:34 AM Dictated Date/Time: 11/12/2017 10:28 AM Laboratory Results 11/12/17 09:37 Red Blood Count 4.79, Mean Corpuscular Volume 90.4, Mean Corpuscular Hemoglobin 31.7, Mean Corpuscular Hemoglobin Concent 35.1, Mean Platelet Volume 9.1, Neutrophils (%) (Auto) 54.4, Lymphocytes (%) (Auto) 31.9, Monocytes (%) (Auto) 9.1, Eosinophils (%) (Auto) 3.9, Basophils (%) (Auto) 0.5, Neutrophils # (Auto) 4.79, Lymphocytes # (Auto) 2.80, Monocytes # (Auto) 0.80, Eosinophils # (Auto) 0.34, Basophils # (Auto) 0.04 11/12/17 09:37 Test 11/12/17 09:37 White Blood Count 8.79 K/uL (4.8-10.8) Red Blood Count 4.79 M/uL (4.2-5.4) Hemoglobin 15.2 g/dL (12.0-16.0) Hematocrit 43.3 % (37-47) Mean Corpuscular Volume 90.4 fL (80-100) Mean Corpuscular Hemoglobin 31.7 pg (25-34) Mean Corpuscular Hemoglobin Concent 35.1 g/dl (32-36) Platelet Count 346 K/uL (130-400) Mean Platelet Volume 9.1 fL (7.4-10.4) Neutrophils (%) (Auto) 54.4 % Lymphocytes (%) (Auto) 31.9 % Monocytes (%) (Auto) 9.1 % Eosinophils (%) (Auto) 3.9 % Basophils (%) (Auto) 0.5 % Neutrophils # (Auto) 4.79 K/uL (1.4-6.5) Lymphocytes # (Auto) 2.80 K/uL (1.2-3.4) Monocytes # (Auto) 0.80 K/uL (0.11-0.59) Eosinophils # (Auto) 0.34 K/uL (0-0.5) Basophils # (Auto) 0.04 K/uL (0-0.2) RDW Standard Deviation 44.4 fL (36.4-46.3) RDW Coefficient of Variation 13.4 % (11.5-14.5) Immature Granulocyte % (Auto) 0.2 % Immature Granulocyte # (Auto) 0.02 K/uL (0.00-0.02) Anion Gap 9.0 mmol/L (3-11) Estimated GFR () 96.9 Estimated GFR (Non- 83.6 BUN/Creatinine Ratio 14.8 (10-20) Calcium Level 10.0 mg/dl (8.5-10.1) Total Bilirubin 0.3 mg/dl (0.2-1) Aspartate Amino Transf (AST/SGOT) 33 U/L (15-37) Alanine Aminotransferase (ALT/SGPT) 64 U/L (12-78) Alkaline Phosphatase 95 U/L (45-117) C-Reactive Protein < 0.29 mg/dl (0-0.29) Total Protein 8.3 gm/dl (6.4-8.2) Albumin 4.4 gm/dl (3.4-5.0) Globulin 3.9 gm/dl (2.5-4.0) Albumin/Globulin Ratio 1.1 (0.9-2) Laboratory results as stated above per my review. ED Course 0943: Previous medical records were reviewed. The patient was evaluated in room B4B. A complete history and physical examination was performed. 1057: On reevaluation, the patient is resting comfortably. I discussed the results and findings with the patient. She verbalized agreement of the treatment plan. She was discharged home. Medical Decision Differential considered: pancreatitis, hepatitis, or acute cholecystitis, AAA, UTI, pyelonephritis, kidney stones, appendicitis, diverticulitis, shingles, bowel obstruction mesenteric ischemia, intussusception, hernia, ovarian torsion , ruptured ovarian cyst, ectopic , . This is a 67-year-old female who presents to the ED with a chief complaint of right lower quadrant abdominal pain. Patient was seen with the resident. Further details are listed above. The patient's exam did not reveal any significant abdominal discomfort on exam. She otherwise was noted to be hypertensive. She is not compliant with taking her medication. The patient's blood pressure did improve during her stay to 156/94. Her CBC and complete metabolic panel was normal. CT scan of abdomen and pelvis revealed some constipation but otherwise nothing acute. The patient was told the results. She is felt to be stable for discharge. Medication Reconcilliation Current Medication List: was personally reviewed by me Blood Pressure Screening Patient's blood pressure: Elevated blood pressure Blood pressure disposition: Elevated BP felt to be situational Impression Primary Impression: RLQ abdominal pain Scribe Attestation The scribe's documentation has been prepared under my direction and personally reviewed by me in its entirety. I confirm that the note above accurately reflects all work, treatment, procedures, and medical decision making performed by me. Departure Information Dispostion Home / Self-Care Referrals Maria Alejandra Gonzalez D.O. (PCP) Forms HOME CARE DOCUMENTATION FORM, IMPORTANT VISIT INFORMATION, WORK / SCHOOL INSTRUCTIONS Patient Instructions Constipation, My [facility] Additional Instructions Follow up with your primary care physician in 1-2 days Take Miralax over the counter 1 cup full (17g) once a day to help with constipation
== END 2017-11-12 11:45 | disposition home or self-care (01) ==
LOC: C.EDB 08:28
DX: K59.00 Constipation, unspecified (principal); E78.5 Hyperlipidemia, unspecified; I10 Essential (primary) hypertension; Z86.718 Personal history of other venous thrombosis and embolism; J44.9 Chronic obstructive pulmonary disease, unspecified; F41.9 Anxiety disorder, unspecified; K58.9 Irritable bowel syndrome, unspecified; F43.10 Post-traumatic stress disorder, unspecified; Z87.891 Personal history of nicotine dependence; F25.9 Schizoaffective disorder, unspecified; Z96.89 Presence of other specified functional implants; Z80.9 Family history of malignant neoplasm, unspecified; Z83.3 Family history of diabetes mellitus; Z82.49 Family history of ischemic heart disease and other diseases of the circulatory system; Z82.3 Family history of stroke; Z81.8 Family history of other mental and behavioral disorders; Z79.899 Other long term (current) drug therapy; Z88.8 Allergy status to other drugs, medicaments and biological substances; Z88.0 Allergy status to penicillin; Z88.5 Allergy status to narcotic agent; Z88.6 Allergy status to analgesic agent

== ENCOUNTER 2018-02-25 15:48 | Emergency (ER) | payer OTHER ==
[~2018-02-25 15:48] MED LIST changes: +CALC500C50 PO; +CLON0.3T PO; -LORA-741 PO; -METO50TA17 PO
[2018-02-25 15:50] VITALS: TEMP 37.7
--- NOTE | 2018-02-25 16:50 | EMERGENCY ROOM VISIT NOTE ---
History Report prepared by Gosia: Iraj Childers Under the Supervision of: Dr. Garrett Elise M.D. First contact with patient: 16:03 Chief Complaint: ANXIETY Stated Complaint: STOMACH PAIN - CHEST PAIN History of Present Illness This HPI is limited due to the status of the patient. The patient is a 67 year old female who presents to the Emergency Room stating that "I am scared." The patient notes that she is having constant "laura pain" in her left upper abdominal quadrant as well as in her back. He is having a headache over the left side of her head as well. Source of History: patient Position: abdomen (LLQ) Quality: other (laura) Timing: constant Associated Symptoms: + headache Review of Systems See HPI for pertinent positives and negatives. A total of ten systems were reviewed and were otherwise negative. Past Medical & Surgical Medical Problems: (1) Abdominal pain (2) Anxiety (3) Chronic pelvic pain of female (4) COPD (chronic obstructive pulmonary disease) (5) DVT (deep venous thrombosis) (6) H/O drug abuse (7) Hypertension (8) IBS (9) Posttraumatic stress disorder (10) Schizoaffective disorder (11) Suicide attempt (12) Tobacco abuse Surgical Problems: (1) Cystoscopy (2) h/o inferior vena cava filter placement (3) Tonsillectomy Social History Problems: (1) IVC filter Family History Cancer MOTHER (Colon ) Diabetes mellitus FATHER Endocrine disorder SISTER (Thyroid) FH: mental illness SISTER Heart disease FATHER MOTHER Stroke Social History Smoking Status: Unknown if Ever Smoked Alcohol Use: none Drug Use: none Marital Status: Housing Status: lives alone Occupation Status: disabled Current/Historical Medications Scheduled Calcium Carbonate (Antacid) (Tums), 1 TAB PO PRN Metoprolol Tartrate (Lopressor) (Lopressor), 50 MG PO BID [Maxi-Freeze], 1 APPLN TOP PRN Scheduled PRN Aspirin (Aspirin Ec), 81 MG SL DAILY PRN for BLOOD THINNING AFFECT Clonidine Hcl (Catapres), 0.3 MG PO DAILY PRN for HIGH BP Allergies Coded Allergies: Atropine (Verified Allergy, Severe, castillo, hard time breathing, 11/23/17) Clonidine (Unverified Allergy, Severe, RAISES B.P., ANXIOUSNESS, 11/23/17) Diphenhydramine (Verified Allergy, Severe, "I ALMOST .", 11/23/17) Hyoscyamine (Verified Allergy, Severe, castillo, hard time breathing, 11/23/17) Labetalol (Verified Allergy, Severe, selling,loss of taste,itch, rash, ) Phenobarbital (Verified Allergy, Severe, castillo, hard time breathing, 11/23/17) Prednisone (Verified Allergy, Severe, Edema face,lips and tongue., 11/23/17 ) Meticorten Scopolamine (Verified Allergy, Severe, castillo, hard time breathing, 11/23/17) Enoxaparin (Verified Allergy, Intermediate, RASH, 11/23/17) Levofloxacin (Verified Allergy, Intermediate, ARM TURNED "FIREY RED" WHEN INFUSED, CLEARED IN A FEW HOURS, 11/23/17) Tramadol (Verified Allergy, Intermediate, blisters all over, 11/23/17) Warfarin (Verified Allergy, Intermediate, rash, 11/23/17) Chlorpromazine (Verified Allergy, Mild, TOLERATING PROLIXIN AT HOME , 11/23/17) Penicillins (Verified Allergy, Mild, 11/23/17) Coumarin (Verified Allergy, Unknown, UNKNOWN, 11/23/17) Naproxen (Verified Allergy, Unknown, Unknown, 11/23/17) Morphine (Verified Adverse Reaction, Severe, SHOCK;TOLERATES DEMEROL, 11/23) ABLE TO TAKE DEMEROL WITHOUT DIFFICULTY Aspirin (Verified Adverse Reaction, Intermediate, BLEEDING, 11/23/17) Codeine (Verified Adverse Reaction, Intermediate, BP DROPS AND PASSES OUT, 11/23/17) Replaces CODEINE PHOSP Dicyclomine (Verified Adverse Reaction, Intermediate, GI SYMPTOMS, 11/23/17 ) Ibuprofen (Verified Adverse Reaction, Intermediate, BLEEDING, 11/23/17) Amitriptyline (Verified Adverse Reaction, Mild, Nausea/vomitimg, 11/23/17) Lisinopril (Verified Adverse Reaction, Mild, COUGH, 11/23/17) Nitrofurantoin (Verified Adverse Reaction, Unknown, hallucinating, 11/23/17 ) Physical Exam Vital Signs Date Time Temp Pulse Resp B/P (MAP) Pulse Ox O2 Delivery O2 Flow Rate FiO2 02/26/18 06:31 98 18 152/119 98 Room Air 02/26/18 00:05 85 18 176/83 98 Room Air 02/25/18 20:08 105 18 197/101 97 Room Air 02/25/18 18:54 103 18 208/113 97 Room Air 204/105 02/25/18 17:16 90 16 200/135 96 Room Air 198/123 02/25/18 16:23 120 02/25/18 15:50 37.7 112 20 175/95 98 Room Air Physical Exam GENERAL: Awake, NAD HENT: Normocephalic, atraumatic. EYES: Normal conjunctiva. Sclera non-icteric. PERRL. No anisocoria. NECK: Supple. No nuchal rigidity. FROM. RESPIRATORY: CTAB, no rhonchi, wheezing, crackles CARDIAC: RRR, no MRG ABDOMEN: Soft, NTND, BS+ MSK: No chest wall TTP, no LE edema NEURO: GCS 15, CN 2-12 intact, moves all 4s on command SKIN: No rash or jaundice noted. Medical Decision & Procedures ER Provider Diagnostic Interpretation: Radiology results as stated below per my review and radiologist interpretation: CHEST ONE VIEW PORTABLE CLINICAL HISTORY: Mood Disorder mental status change COMPARISON STUDY: 01/30/2018 FINDINGS: The bones soft tissues and hemidiaphragms are normal. The cardiomediastinal silhouette is normal. The lungs are clear. The pulmonary vasculature is normal. IMPRESSION: Negative chest. The above report was generated using voice recognition software. It may contain grammatical, syntax or spelling errors. Electronically signed by: Anuel Martinez M.D. 02/25/2018 5:10 PM Dictated Date/Time: 02/25/2018 5:10 PM Laboratory Results 02/25/18 16:47 Red Blood Count 4.64, Mean Corpuscular Volume 89.0, Mean Corpuscular Hemoglobin 31.3, Mean Corpuscular Hemoglobin Concent 35.1, Mean Platelet Volume 9.3, Neutrophils (%) (Auto) 74.1, Lymphocytes (%) (Auto) 18.5, Monocytes (%) (Auto) 6.2, Eosinophils (%) (Auto) 0.6, Basophils (%) (Auto) 0.3, Neutrophils # (Auto) 7.60, Lymphocytes # (Auto) 1.89, Monocytes # (Auto) 0.63, Eosinophils # (Auto) 0.06, Basophils # (Auto) 0.03 02/25/18 16:47 Test 02/25/18 16:47 02/25/18 16:51 White Blood Count 10.24 K/uL (4.8-10.8) Red Blood Count 4.64 M/uL (4.2-5.4) Hemoglobin 14.5 g/dL (12.0-16.0) Hematocrit 41.3 % (37-47) Mean Corpuscular Volume 89.0 fL (80-100) Mean Corpuscular Hemoglobin 31.3 pg (25-34) Mean Corpuscular Hemoglobin Concent 35.1 g/dl (32-36) Platelet Count 419 K/uL (130-400) Mean Platelet Volume 9.3 fL (7.4-10.4) Neutrophils (%) (Auto) 74.1 % Lymphocytes (%) (Auto) 18.5 % Monocytes (%) (Auto) 6.2 % Eosinophils (%) (Auto) 0.6 % Basophils (%) (Auto) 0.3 % Neutrophils # (Auto) 7.60 K/uL (1.4-6.5) Lymphocytes # (Auto) 1.89 K/uL (1.2-3.4) Monocytes # (Auto) 0.63 K/uL (0.11-0.59) Eosinophils # (Auto) 0.06 K/uL (0-0.5) Basophils # (Auto) 0.03 K/uL (0-0.2) RDW Standard Deviation 45.6 fL (36.4-46.3) RDW Coefficient of Variation 14.0 % (11.5-14.5) Immature Granulocyte % (Auto) 0.3 % Immature Granulocyte # (Auto) 0.03 K/uL (0.00-0.02) Anion Gap 10.0 mmol/L (3-11) Estimated GFR () 93.9 Estimated GFR (Non- 81.0 BUN/Creatinine Ratio 16.2 (10-20) Calcium Level 9.1 mg/dl (8.5-10.1) Total Bilirubin 0.5 mg/dl (0.2-1) Direct Bilirubin 0.1 mg/dl (0-0.2) Aspartate Amino Transf (AST/SGOT) 22 U/L (15-37) Alanine Aminotransferase (ALT/SGPT) 54 U/L (12-78) Alkaline Phosphatase 101 U/L (45-117) Troponin I < 0.015 ng/ml (0-0.045) Total Protein 8.3 gm/dl (6.4-8.2) Albumin 4.3 gm/dl (3.4-5.0) Thyroid Stimulating Hormone (TSH) 1.300 uIu/ml (0.300-4.500) Salicylates Level 3.3 mg/dl (2.8-20) Acetaminophen Level < 2 ug/ml (10-30) Ethyl Alcohol mg/dL < 3.0 mg/dl (0-3) Urine Color YELLOW Urine Appearance CLEAR (CLEAR) Urine pH 7.0 (4.5-7.5) Urine Specific [place] 1.009 (1.000-1.030) Urine Protein NEG (NEG) Urine Glucose (UA) NEG (NEG) Urine Ketones NEG (NEG) Urine Occult Blood NEG (NEG) Urine Nitrite NEG (NEG) Urine Bilirubin NEG (NEG) Urine Urobilinogen NEG (NEG) Urine Leukocyte Esterase NEG (NEG) Urine Opiates Screen NEG (NEG) Urine Methadone, Qualitative NEG (NEG) Urine Barbiturates NEG (NEG) Urine Phencyclidine (PCP) Level NEG (NEG) Ur Amphetamine/Methamphetamine NEG (NEG) MDMA (Ecstasy) Screen NEG (NEG) Urine Benzodiazepines Screen NEG (NEG) Urine Cocaine Metabolite NEG (NEG) Urine Marijuana (THC) NEG (NEG) Laboratory results reviewed by me Medications Administered Medications (Trade) Dose Ordered Sig/Thiago Route Start Time Stop Time Status Last Admin Dose Admin Lorazepam (Ativan Tab) 0.5 mg NOW STAT PO 02/25/18 17:30 02/25/18 17:32 DC 02/25/18 17:42 0.5 MG Metoprolol Tartrate (Lopressor Tab) 50 mg NOW STAT PO 02/25/18 19:01 02/25/18 19:02 DC 02/25/18 19:10 50 MG Metoprolol Tartrate (Lopressor Tab) 50 mg NOW STAT PO 02/26/18 06:12 02/26/18 06:14 DC 02/26/18 06:32 50 MG Clonidine HCl (Catapres Tab) 0.3 mg NOW STAT PO 02/26/18 06:12 02/26/18 06:14 DC 02/26/18 06:34 0.3 MG Lorazepam (Ativan Tab) 1 mg NOW STAT SL 02/26/18 08:16 02/26/18 08:17 DC 02/26/18 08:20 1 MG ED Course 1621: The patient was evaluated in room B3B. A complete history and physical exam was performed. 1800: Signed out at change of shift. Patient is still in department. Medical Decision Differential diagnosis: Etiologies such as appendicitis, diverticulitis, PUD, biliary pathology, UTI, pancreatitis, obstruction, mesenteric ischemia, aortic pathology, infections, inflammatory bowel disease, renal colic, as well as others were entertained. Patient was seen and evaluated the bedside. Of note the patient had presented after being evicted from her home and was complaining of some chest pain and abdominal pain. On exam the patient states that she is scared and is very repetitive. The patient upon questioning does not really complain of any chest pain or abdominal pain but is just "scared". Patient did have blood work completed along with EKG troponin chest x-ray and tox screen. The patient's blood work was fairly unremarkable. EKG did not show any acute ischemic change. The patient was given some Ativan. Patient's heart rate and blood pressure did improve. I did discuss the case with the mental health specialist who is going to evaluate the patient. I did speak to the evening physician and stated that I do not believe that the patient requires inpatient psychiatric treatment but that the mental health specialist unable to formally evaluate the patient. Impression Primary Impression: Acute anxiety Additional Impression: Homelessness Scribe Attestation The scribe's documentation has been prepared under my direction and personally reviewed by me in its entirety. I confirm that the note above accurately reflects all work, treatment, procedures, and medical decision making performed by me. Departure Information Dispostion Still a Patient Referrals Maria Alejandra Gonzalez D.O. (PCP) Patient Instructions My [facility] Problem Qualifiers
--- NOTE | 2018-02-25 17:12 | DIAGNOSTIC IMAGING REPORT ---
CHEST ONE VIEW PORTABLE CLINICAL HISTORY: Mood Disorder mental status change COMPARISON STUDY: 01/30/2018 FINDINGS: The bones soft tissues and hemidiaphragms are normal. The cardiomediastinal silhouette is normal. The lungs are clear. The pulmonary vasculature is normal. IMPRESSION: Negative chest. The above report was generated using voice recognition software. It may contain grammatical, syntax or spelling errors. Electronically signed by: Anuel Martinez M.D. 02/25/2018 5:10 PM Dictated Date/Time: 02/25/2018 5:10 PM
[2018-02-25 17:24] LABS: BASO % 0.3 %; BASO ABS # 0.03 K/uL (0-0.2); EOS % 0.6 %; EOS ABS # 0.06 K/uL (0-0.5); HEMATOCRIT 41.3 % (37-47); HEMOGLOBIN 14.5 g/dL (12.0-16.0); IG# 0.03 K/uL (0.00-0.02); LYMPH % 18.5 %; LYMPH ABS # 1.89 K/uL (1.2-3.4); MEAN CORPUSCULAR HEMOGLOBIN 31.3 pg (25-34); MEAN CORPUSCULAR HGB CONC 35.1 g/dl (32-36); MEAN PLATELET VOLUME 9.3 fL (7.4-10.4); MONO % 6.2 %; MONO ABS # 0.63 K/uL (0.11-0.59); NEUT % 74.1 %; PLATELET COUNT 419 K/uL (130-400); RED CELL DISTRIBUTION WIDTH SD 45.6 fL (36.4-46.3); WHITE BLOOD COUNT 10.24 K/uL (4.8-10.8)
[2018-02-25] MEDS ORDERED: LORAZEPAM 0.5 MG TAB PO STA (17:30)
[2018-02-25 17:56] LABS: ALBUMIN 4.3 gm/dl (3.4-5.0); ALKALINE PHOSPHATASE 101 U/L (45-117); ALT/SGPT 54 U/L (12-78); AST/SGOT 22 U/L (15-37); BLOOD UREA NITROGEN 12 mg/dl (7-18); CALCIUM 9.1 mg/dl (8.5-10.1); CARBON DIOXIDE 20 mmol/L (21-32); CREATININE 0.77 mg/dl (0.60-1.20); GLUCOSE 104 mg/dl (70-99); POTASSIUM 4.1 mmol/L (3.5-5.1); SODIUM 130 mmol/L (136-145); TOTAL PROTEIN 8.3 gm/dl (6.4-8.2)
[2018-02-25] MEDS ORDERED: ASPI81TA28 SL (18:12)
[2018-02-25] MEDS ORDERED: [UNRECOGNIZED DRUG - OTHER] TOP (18:12)
[2018-02-25] MEDS ORDERED: METOPROLOL TARTRATE 50 MG TAB PO STA (19:01)
[2018-02-25] MEDS ORDERED: LORAZEPAM 1 MG TAB ONE (21:42)
--- NOTE | 2018-02-25 23:11 | EMERGENCY ROOM VISIT NOTE ---
ED Visit Note First contact with patient: 18:38 I received this patient at change of shift signout from Dr. Elise. Please see his note for complete history and physical. The patient presented to the emergency department after she was evicted from her home. She had severe anxiety. The patient has a known history of hypertension as well as noncompliance with her medications. She was treated with her beta-jeri in the emergency department. Case management has been working with her throughout the day. We are trying to get her a safe disposition and a place to stay but at this time we have not had any success. The patient was signed out to Dr. Thorpe change of shift. Please see her note for continuation of care and final disposition.
[2018-02-26] MEDS ORDERED: METOPROLOL TARTRATE 50 MG TAB PO STA (06:12)
[2018-02-26] MEDS ORDERED: CLONIDINE HCL 0.3 MG TAB PO STA (06:12)
[2018-02-26 06:31] VITALS: BP 152/119; PULSE 98; O2SAT 98
--- NOTE | 2018-02-26 07:23 | EMERGENCY ROOM VISIT NOTE ---
ED Visit Note First contact with patient: 03:18 I received this patient in signout at the change of shift from Dr. Santy Wylie , pending mental health bed search/disposition. Patient became somewhat anxious in the emergency department overnight but was redirected by nursing staff. She initially threatened to leave however decided to stay for further assistance as she was evicted from her homeless intermediate last evening. The patient will be signed out to Dr. Gonsales at the change of shift, pending further case management involvement and a disposition plan.
[2018-02-26] MEDS ORDERED: LORAZEPAM 1 MG TAB SL STA (08:16)
[2018-02-26] MEDS ORDERED: LORAZEPAM 1 MG TAB SL PRN (09:30)
== END 2018-02-26 10:10 | disposition home or self-care (01) ==
LOC: C.EDB 15:50 → C.EDA 02-26 10:10
DX: F41.9 Anxiety disorder, unspecified (principal); Z59.0 Homelessness; R51 Headache; M54.9 Dorsalgia, unspecified; J44.9 Chronic obstructive pulmonary disease, unspecified; I10 Essential (primary) hypertension; Z79.899 Other long term (current) drug therapy; Z88.1 Allergy status to other antibiotic agents; Z88.6 Allergy status to analgesic agent; Z88.8 Allergy status to other drugs, medicaments and biological substances; Z81.8 Family history of other mental and behavioral disorders

== ENCOUNTER 2018-03-03 10:39 | Inpatient (IN) | payer OTHER ==
[~2018-03-03] VITALS: Ht 157.5 cm; Wt 59.9 kg
[~2018-03-03 10:39] MED LIST changes: +ASPI81TA28 SL; +[UNRECOGNIZED DRUG - OTHER] TOP
[2018-03-03] MEDS ORDERED: SODIUM CHLORIDE 0.9% 1000ML 1,000 ML IV STA (10:47)
[2018-03-03] MEDS ORDERED: METOPROLOL TARTRATE 50 MG TAB PO STA (10:49)
[2018-03-03] MEDS ORDERED: CLONIDINE HCL 0.1 MG TAB PO ONE (11:00)
[2018-03-03] MEDS ORDERED: CALC500C3 PO (11:00)
[2018-03-03] MEDS ORDERED: OPTIRAY 320 IV PRN (11:15)
[2018-03-03 11:27] LABS: BASO % 0.4 %; BASO ABS # 0.03 K/uL (0-0.2); HEMATOCRIT 42.6 % (37-47); HEMOGLOBIN 14.6 g/dL (12.0-16.0); IG# 0.01 K/uL (0.00-0.02); LYMPH % 27.4 %; MEAN CELL VOLUME 92.2 fL (80-100); MEAN CORPUSCULAR HEMOGLOBIN 31.6 pg (25-34); MEAN CORPUSCULAR HGB CONC 34.3 g/dl (32-36); MEAN PLATELET VOLUME 9.1 fL (7.4-10.4); MONO % 7.8 %; NEUT % 64.3 %; NEUT ABS # 4.92 K/uL (1.4-6.5); PLATELET COUNT 383 K/uL (130-400); RED CELL DISTRIBUTION WIDTH CV 14.5 % (11.5-14.5); RED CELL DISTRIBUTION WIDTH SD 48.9 fL (36.4-46.3); WHITE BLOOD COUNT 7.66 K/uL (4.8-10.8)
[2018-03-03 11:59] LABS: ALBUMIN 3.8 gm/dl (3.4-5.0); ALKALINE PHOSPHATASE 104 U/L (45-117); ALT/SGPT 39 U/L (12-78); AST/SGOT 19 U/L (15-37); BLOOD UREA NITROGEN 8 mg/dl (7-18); CARBON DIOXIDE 24 mmol/L (21-32); CREATININE 0.75 mg/dl (0.60-1.20); GLUCOSE 108 mg/dl (70-99); LIPASE 335 U/L (73-393); SODIUM 135 mmol/L (136-145); TOTAL PROTEIN 8.2 gm/dl (6.4-8.2)
--- NOTE | 2018-03-03 12:36 | DIAGNOSTIC IMAGING REPORT ---
L VENOUS DOPP LOWER EXT UNILAT HISTORY: 67 years-old Female lle swelling acute pain and swelling of the left lower extremity COMPARISON: Right lower extremity duplex venous Doppler study 11/11/2017 TECHNIQUE: Multiple real-time sonographic images of the left lower extremity deep venous structures were obtained assessing grayscale appearance, color and spectral flow FINDINGS: Mild linear echogenic stranding within the common femoral vein without occluding thrombus. Echogenic thrombus is noted within one of the paired peroneal veins which appears to be partially occlusive. Otherwise, there is normal compressibility, flow, phasicity and augmentation of the remaining deep venous structures. IMPRESSION: 1. Partially occlusive deep venous thrombosis involves one of the peroneal veins. 2. Nonocclusive thrombus of the common femoral vein. The above report was generated using voice recognition software. It may contain grammatical, syntax or spelling errors. Electronically signed by: Abhi Lees M.D. 03/03/2018 12:35 PM Dictated Date/Time: 03/03/2018 12:32 PM
[2018-03-03] MEDS ORDERED: LORAZEPAM 1 MG TAB SL STA (13:13)
--- NOTE | 2018-03-03 13:28 | DIAGNOSTIC IMAGING REPORT ---
ABDOMEN AND PELVIS CT WITH IV CONTRAST CT DOSE: 269.68 mGy.cm HISTORY: Acute generalized abdominal pain abd pain TECHNIQUE: Multiaxial CT images of the abdomen and pelvis were performed following the use of intravenous contrast. A dose lowering technique was utilized adhering to the principles of ALARA. COMPARISON STUDY: CT abdomen and pelvis 11/12/2017. FINDINGS: Mild dependent subsegmental bibasilar atelectasis. 1.3 cm thin-walled cyst of the lateral basal segment left lower lobe. 4 mm fissural lymph node at the right lung base, image 13 series 3. No pneumatosis or pneumoperitoneum identified. Imaged inferior cardiac chambers are within limits of normal in size. Gallbladder, liver, spleen, pancreas and right adrenal gland are unremarkable. Mild thickening of the left adrenal gland. Ureters are unremarkable. There is distention of the bladder measuring up to 11.4 x 9.7 cm. Uterus and adnexa are unremarkable. Moderate to extensive mixed plaquing about the aorta without aneurysm. Suprarenal IVC filter redemonstrated along with filter within the right gonadal vein. The right ureter is noted coursing in between extraluminal right gonadal vein filter struts. There is no bowel obstruction or focal bowel wall thickening identified. Mild colonic diverticulosis without diverticulitis. Moderate volume of formed stool is noted throughout the colon. Terminal ileum and appendix appear normal. No ascites or mesenteric inflammatory changes. Diastases recti. 1.3 cm density about the right upper anterior abdominal wall appears new from prior study. Skin lesion or structure external to the patient on differential considerations. The bones appear to be intact. IMPRESSION: 1. Moderate formed colonic stool suggests constipation. No bowel obstruction or focal bowel wall thickening. 2. Urinary bladder distention without hydronephrosis. 3. Additional findings as above. Electronically signed by: Abhi Lees M.D. 03/03/2018 1:27 PM Dictated Date/Time: 03/03/2018 1:11 PM
[2018-03-03] MEDS ORDERED: HEPARIN SOD (PORCINE) 1000 UNIT/ML 10 ML VIAL ONE (15:04)
[2018-03-03] MEDS ORDERED: HEPARIN 25000 UNIT/500 ML D5W ONE (15:04)
[2018-03-03] MEDS ORDERED: HydrALAZINE HCL 20 MG/ML VIAL IV. STA (15:12)
[2018-03-03 15:28] LABS: PTT PATIENT 25.5 SECONDS (21.0-31.0)
[2018-03-03 15:48] VITALS: Ht 157.5 cm; Wt 59.9 kg
[2018-03-03] MEDS ORDERED: ACETAMINOPHEN 325 MG TAB PO PRN (16:30)
[2018-03-03] MEDS ORDERED: ONDANSETRON INJ 2 MG/ML 2 ML VIAL IV PRN (16:30)
--- NOTE | 2018-03-03 16:38 | EMERGENCY ROOM VISIT NOTE ---
History Report prepared by Gosia: Leah Herbert Under the Supervision of: Dr. Fady Harris D.O. First contact with patient: 10:38 Stated Complaint: ABD PAIN History of Present Illness The patient is a 67 year old female who presents to the Emergency Room with complaints of worsening abdominal pain that began today. The patient complains of not being able to have a bowel movement since last week. She notes that she has "generalized pain" that is caused by her living circumstances. She states that laying straight increases her discomfort. The patient complains of chest pain, headaches, chronic right hip pain, chronic leg pain, left leg swelling, and chronic back pain. The patient denies cough, rhinorrhea, suicidal ideation, and homicidal ideation. The patient notes that she has not taken her medications since Saturday. Per EMS, [facility] has a 302 out on the patient. Patient notes that the chest pain is more pleuritic and worse with breathing. Source of History: patient Onset: today Position: abdomen Timing: worsening Modifying Factors (Worsening): other (laying straight) Associated Symptoms: + headache, + chest pain, + back pain Note: The patient complains of right hip pain, leg pain, and left leg swelling. The patient denies rhinorrhea, suicidal ideation, and homicidal ideation. Review of Systems See HPI for pertinent positives & negatives. A total of 10 systems reviewed and were otherwise negative. Past Medical & Surgical Medical Problems: (1) Abdominal pain (2) Anxiety (3) Chronic pelvic pain of female (4) COPD (chronic obstructive pulmonary disease) (5) DVT (deep venous thrombosis) (6) H/O drug abuse (7) Hypertension (8) Hypertensive urgency (9) IBS (10) Posttraumatic stress disorder (11) Schizoaffective disorder (12) Suicide attempt (13) Tobacco abuse Surgical Problems: (1) Cystoscopy (2) h/o inferior vena cava filter placement (3) Tonsillectomy Social History Problems: (1) IVC filter Family History Cancer MOTHER (Colon ) Diabetes mellitus FATHER Endocrine disorder SISTER (Thyroid) FH: mental illness SISTER Heart disease FATHER MOTHER Stroke Social History Smoking Status: Current Every Day Smoker Marital Status: single Housing Status: other (homeless) Occupation Status: unemployed Current/Historical Medications Scheduled Calcium Carbonate (Tums), 500 MG PO DAILY Metoprolol Tartrate (Lopressor) (Lopressor), 50 MG PO BID Scheduled PRN Aspirin (Aspirin Ec), 81 MG SL DAILY PRN for BLOOD THINNING AFFECT Clonidine Hcl (Catapres), 0.3 MG PO DAILY PRN for HIGH BP Allergies Coded Allergies: Atropine (Verified Allergy, Severe, castillo, hard time breathing, 03/03/18) Clonidine (Unverified Allergy, Severe, RAISES B.P., ANXIOUSNESS, 03/03/18) Diphenhydramine (Verified Allergy, Severe, "I ALMOST .", 03/03/18) Hyoscyamine (Verified Allergy, Severe, castillo, hard time breathing, 03/03/18) Labetalol (Verified Allergy, Severe, selling,loss of taste,itch, rash, ) Phenobarbital (Verified Allergy, Severe, castillo, hard time breathing, 03/03/18) Prednisone (Verified Allergy, Severe, Edema face,lips and tongue., 03/03/18 ) Meticorten Scopolamine (Verified Allergy, Severe, castillo, hard time breathing, 03/03/18) Enoxaparin (Verified Allergy, Intermediate, RASH, 03/03/18) Levofloxacin (Verified Allergy, Intermediate, ARM TURNED "FIREY RED" WHEN INFUSED, CLEARED IN A FEW HOURS, 03/03/18) Tramadol (Verified Allergy, Intermediate, blisters all over, 03/03/18) Warfarin (Verified Allergy, Intermediate, rash, 03/03/18) Chlorpromazine (Verified Allergy, Mild, TOLERATING PROLIXIN AT HOME , 03/03/18) Penicillins (Verified Allergy, Mild, 03/03/18) Coumarin (Verified Allergy, Unknown, UNKNOWN, 03/03/18) Naproxen (Verified Allergy, Unknown, Unknown, 03/03/18) Morphine (Verified Adverse Reaction, Severe, SHOCK;TOLERATES DEMEROL, 03/03) ABLE TO TAKE DEMEROL WITHOUT DIFFICULTY Aspirin (Verified Adverse Reaction, Intermediate, BLEEDING, 03/03/18) Codeine (Verified Adverse Reaction, Intermediate, BP DROPS AND PASSES OUT, 03/03/18) Replaces CODEINE PHOSP Dicyclomine (Verified Adverse Reaction, Intermediate, GI SYMPTOMS, 03/03/18 ) Ibuprofen (Verified Adverse Reaction, Intermediate, BLEEDING, 03/03/18) Amitriptyline (Verified Adverse Reaction, Mild, Nausea/vomitimg, 03/03/18) Lisinopril (Verified Adverse Reaction, Mild, COUGH, 03/03/18) Nitrofurantoin (Verified Adverse Reaction, Unknown, hallucinating, 03/03/18 ) Physical Exam Vital Signs Date Time Temp Pulse Resp B/P (MAP) Pulse Ox O2 Delivery O2 Flow Rate FiO2 03/03/18 16:06 80 16 155/73 98 Room Air 03/03/18 15:48 Room Air 03/03/18 15:39 73 18 183/87 100 Room Air 03/03/18 15:09 72 18 177/93 100 Room Air 03/03/18 14:13 70 19 196/112 100 Room Air 03/03/18 12:50 64 14 204/93 99 Room Air 03/03/18 11:14 209/94 03/03/18 11:06 36.6 80 19 207/104 100 Room Air Physical Exam GENERAL: Sitting up in bed, chronically ill appearing, disheveled, no acute distress EYE EXAM: normal conjunctiva. OROPHARYNX: no exudate, no erythema, lips, buccal mucosa, and tongue normal and mucous membranes are moist NECK: supple, no nuchal rigidity, no adenopathy, non-tender LUNGS: Clear to auscultation. Normal chest wall mechanics HEART: no murmurs, S1 normal and S2 normal ABDOMEN: abdomen soft, non-tender, normo-active bowel sounds, no masses, no rebound or guarding. BACK: Back is symmetrical on inspection and there is no deformity, no midline tenderness, no CVA tenderness. SKIN: no rashes and no bruising UPPER EXTREMITIES: upper extremities are grossly normal. LOWER EXTREMITIES: No pitting edema. Left calf larger than right NEURO EXAM: Normal sensorium, cranial nerves II-XII intact, normal speech, no weakness of arms, no weakness of legs. No drift. Finger to nose intact. Gross sensation intact. Medical Decision & Procedures ER Provider Diagnostic Interpretation: Radiology results as stated below per my review and the radiologist's interpretation: ABDOMEN AND PELVIS CT WITH IV CONTRAST CT DOSE: 269.68 mGy.cm HISTORY: Acute generalized abdominal pain abd pain TECHNIQUE: Multiaxial CT images of the abdomen and pelvis were performed following the use of intravenous contrast. A dose lowering technique was utilized adhering to the principles of ALARA. COMPARISON STUDY: CT abdomen and pelvis 11/12/2017. FINDINGS: Mild dependent subsegmental bibasilar atelectasis. 1.3 cm thin-walled cyst of the lateral basal segment left lower lobe. 4 mm fissural lymph node at the right lung base, image 13 series 3. No pneumatosis or pneumoperitoneum identified. Imaged inferior cardiac chambers are within limits of normal in size. Gallbladder, liver, spleen, pancreas and right adrenal gland are unremarkable. Mild thickening of the left adrenal gland. Ureters are unremarkable. There is distention of the bladder measuring up to 11.4 x 9.7 cm. Uterus and adnexa are unremarkable. Moderate to extensive mixed plaquing about the aorta without aneurysm. Suprarenal IVC filter redemonstrated along with filter within the right gonadal vein. The right ureter is noted coursing in between extraluminal right gonadal vein filter struts. There is no bowel obstruction or focal bowel wall thickening identified. Mild colonic diverticulosis without diverticulitis. Moderate volume of formed stool is noted throughout the colon. Terminal ileum and appendix appear normal. No ascites or mesenteric inflammatory changes. Diastases recti. 1.3 cm density about the right upper anterior abdominal wall appears new from prior study. Skin lesion or structure external to the patient on differential considerations. The bones appear to be intact. IMPRESSION: 1. Moderate formed colonic stool suggests constipation. No bowel obstruction or focal bowel wall thickening. 2. Urinary bladder distention without hydronephrosis. 3. Additional findings as above. Electronically signed by: Abhi Lees M.D. 03/03/2018 1:27 PM Dictated Date/Time: 03/03/2018 1:11 PM L VENOUS DOPP LOWER EXT UNILAT HISTORY: 67 years-old Female lle swelling acute pain and swelling of the left lower extremity COMPARISON: Right lower extremity duplex venous Doppler study 11/11/2017 TECHNIQUE: Multiple real-time sonographic images of the left lower extremity deep venous structures were obtained assessing grayscale appearance, color and spectral flow FINDINGS: Mild linear echogenic stranding within the common femoral vein without occluding thrombus. Echogenic thrombus is noted within one of the paired peroneal veins which appears to be partially occlusive. Otherwise, there is normal compressibility, flow, phasicity and augmentation of the remaining deep venous structures. IMPRESSION: 1. Partially occlusive deep venous thrombosis involves one of the peroneal veins. 2. Nonocclusive thrombus of the common femoral vein. The above report was generated using voice recognition software. It may contain grammatical, syntax or spelling errors. Electronically signed by: Abhi Lees M.D. 03/03/2018 12:35 PM Dictated Date/Time: 03/03/2018 12:32 PM Laboratory Results 03/03/18 10:59 Red Blood Count 4.62, Mean Corpuscular Volume 92.2, Mean Corpuscular Hemoglobin 31.6, Mean Corpuscular Hemoglobin Concent 34.3, Mean Platelet Volume 9.1, Neutrophils (%) (Auto) 64.3, Lymphocytes (%) (Auto) 27.4, Monocytes (%) (Auto) 7.8, Eosinophils (%) (Auto) 0.0, Basophils (%) (Auto) 0.4, Neutrophils # (Auto) 4.92, Lymphocytes # (Auto) 2.10, Monocytes # (Auto) 0.60, Eosinophils # (Auto) 0.00, Basophils # (Auto) 0.03 03/03/18 10:59 Test 03/03/18 10:59 03/03/18 11:45 03/03/18 13:41 White Blood Count 7.66 K/uL (4.8-10.8) Red Blood Count 4.62 M/uL (4.2-5.4) Hemoglobin 14.6 g/dL (12.0-16.0) Hematocrit 42.6 % (37-47) Mean Corpuscular Volume 92.2 fL (80-100) Mean Corpuscular Hemoglobin 31.6 pg (25-34) Mean Corpuscular Hemoglobin Concent 34.3 g/dl (32-36) Platelet Count 383 K/uL (130-400) Mean Platelet Volume 9.1 fL (7.4-10.4) Neutrophils (%) (Auto) 64.3 % Lymphocytes (%) (Auto) 27.4 % Monocytes (%) (Auto) 7.8 % Eosinophils (%) (Auto) 0.0 % Basophils (%) (Auto) 0.4 % Neutrophils # (Auto) 4.92 K/uL (1.4-6.5) Lymphocytes # (Auto) 2.10 K/uL (1.2-3.4) Monocytes # (Auto) 0.60 K/uL (0.11-0.59) Eosinophils # (Auto) 0.00 K/uL (0-0.5) Basophils # (Auto) 0.03 K/uL (0-0.2) RDW Standard Deviation 48.9 fL (36.4-46.3) RDW Coefficient of Variation 14.5 % (11.5-14.5) Immature Granulocyte % (Auto) 0.1 % Immature Granulocyte # (Auto) 0.01 K/uL (0.00-0.02) Anion Gap 5.0 mmol/L (3-11) Est Creatinine Clear Calc Drug Dose 64.1 ml/min Estimated GFR () 96.9 Estimated GFR (Non- 83.6 BUN/Creatinine Ratio 10.3 (10-20) Calcium Level 9.0 mg/dl (8.5-10.1) Magnesium Level 2.2 mg/dl (1.8-2.4) Total Bilirubin 0.5 mg/dl (0.2-1) Direct Bilirubin < 0.1 mg/dl (0-0.2) Aspartate Amino Transf (AST/SGOT) 19 U/L (15-37) Alanine Aminotransferase (ALT/SGPT) 39 U/L (12-78) Alkaline Phosphatase 104 U/L (45-117) Troponin I < 0.015 ng/ml (0-0.045) Total Protein 8.2 gm/dl (6.4-8.2) Albumin 3.8 gm/dl (3.4-5.0) Lipase 335 U/L (73-393) Thyroid Stimulating Hormone (TSH) 1.080 uIu/ml (0.300-4.500) Salicylates Level 3.0 mg/dl (2.8-20) Acetaminophen Level < 2 ug/ml (10-30) Ethyl Alcohol mg/dL < 3.0 mg/dl (0-3) Urine Color YELLOW Urine Appearance CLEAR (CLEAR) Urine pH 8.0 (4.5-7.5) Urine Specific [place] 1.011 (1.000-1.030) Urine Protein NEG (NEG) Urine Glucose (UA) NEG (NEG) Urine Ketones NEG (NEG) Urine Occult Blood NEG (NEG) Urine Nitrite NEG (NEG) Urine Bilirubin NEG (NEG) Urine Urobilinogen NEG (NEG) Urine Leukocyte Esterase TRACE (NEG) Urine WBC (Auto) 1-5 /hpf (0-5) Urine RBC (Auto) 0-4 /hpf (0-4) Urine Hyaline Casts (Auto) 0 /lpf (0-5) Urine Epithelial Cells (Auto) 20-30 /lpf (0-5) Urine Bacteria (Auto) NEG (NEG) Urine Test NEG (NEG) Urine Opiates Screen NEG (NEG) Urine Methadone, Qualitative NEG (NEG) Urine Barbiturates NEG (NEG) Urine Phencyclidine (PCP) Level NEG (NEG) Ur Amphetamine/Methamphetamine NEG (NEG) MDMA (Ecstasy) Screen NEG (NEG) Urine Benzodiazepines Screen NEG (NEG) Urine Cocaine Metabolite NEG (NEG) Urine Marijuana (THC) NEG (NEG) Activated Partial Thromboplast Time 25.5 SECONDS (21.0-31.0) Partial Thromboplastin Ratio 1.0 Laboratory results per my review. Medications Administered Medications (Trade) Dose Ordered Sig/Thiago Route Start Time Stop Time Status Last Admin Dose Admin Sodium Chloride 1,000 ml @ 999 mls/hr Q1H1M STAT IV 03/03/18 10:47 03/03/18 11:47 DC 03/03/18 10:47 999 MLS/HR Clonidine HCl (Catapres Tab) 0.3 mg NOW ONCE PO 03/03/18 11:00 03/03/18 11:01 DC 03/03/18 11:15 0.3 MG Metoprolol Tartrate (Lopressor Tab) 50 mg NOW STAT PO 03/03/18 10:49 03/03/18 10:51 DC 03/03/18 11:15 50 MG Lorazepam (Ativan Tab) 1 mg NOW STAT SL 03/03/18 13:13 03/03/18 13:14 DC 03/03/18 13:25 1 MG Heparin Sodium/ Dextrose (Heparin 25,000 Unit/500ml D5W) 25,000 unit STK-MED ONCE .ROUTE 03/03/18 15:04 03/03/18 15:05 DC 03/03/18 15:39 25,000 UNIT Heparin Sodium (Porcine) (Heparin Iv Bolus) 10,000 unit STK-MED ONCE .ROUTE 03/03/18 15:04 03/03/18 15:05 DC 03/03/18 15:39 4,000 UNIT Hydralazine HCl (HydrALAZINE INJ) 10 mg ONE STAT IV. 03/03/18 15:12 03/03/18 15:14 DC 03/03/18 15:40 10 MG ED Course ED COURSE: Vital signs were reviewed and showed hypertension. The patients medical record was reviewed The above diagnostic studies were performed and reviewed. ED treatments and interventions as stated above. 1039: The patient was evaluated in room B2. A complete history and physical examination was performed. 1047: Ordered NSS 1000 ml @ 999 mls/hr IV. 1049: Ordered Lopressor Tab 50 mg PO. 1100: Ordered Clonidine HCl 0.3 mg PO. 1313: Ordered Ativan Tab 1 mg SL. 1435: Upon reevaluation, the patient is resting comfortably. I discussed my findings with the patient and she understands and agrees with the treatment plan. Based on the patients age, coexisting illnesses, exam and lab findings the decision to treat as an inpatient was made. The patient remained stable while under my care. The patient will be evaluated for further management. 1444: I reevaluated the patient and she is doing well. She is still having chest pain. 1455: Ordered Heparin Sodium/Dextrose 1 ea IV. 1459: I reviewed the patient's case [facility] She will evaluate the patient for further management. 1512: Ordered Hydralazine HCl 10 mg IV. Medical Decision Differential diagnoses includes but is not limited to gastritis, peptic ulcer disease, GERD, gallbladder disease, pancreatitis, small bowel obstruction, acute coronary syndrome, pericarditis, ischemic bowel, irritable bowel disease, irritable bowel syndrome, appendicitis, diverticulitis, malignancy, hernia, urinary tract infection, torsion, /ectopic , perforation, trauma, infectious. Patient is a 67-year-old noncompliant female who is homeless and presents the ER for multiple complaints most of which is focused around her abdominal pain. CBC along with BMP, LFTs, bilirubin and TSH was unremarkable. Troponin was negative. INR was normal. Tylenol and salicylates and alcohol were negative. UA was negative. was negative. CT abdomen pelvis shows a large stool burden but no acute pathology. Ultrasound of lower extremity shows DVT. Uncertain whether these are truly new from the previous however she is a high risk. She does have an IVC filter but also has pleuritic chest pain. Unable to obtain a CT PE due to IV team unable to establish a 18-gauge IV. VQ study was ordered. She was given her home meds. She still remained persistently hypertensive. She was given IV hydralazine and systolic blood pressures trended down to 180s. Patient had no bleeding risk factors consequently was placed on a heparin drip and bolus. Patient was discussed with internal medicine secondary to the pleuritic chest pain, history of clots along with left lower extremity DVT and hypertension. Medication Reconcilliation Current Medication List: was personally reviewed by me Blood Pressure Screening Patient's blood pressure: Elevated blood pressure Will be evaluated by the hospitalist. Consults Time Called: [id number] Consulting Physician: Katt Michel Hospitalist Returned Call: [phone] I reviewed the patient's case with Katt Michel Hospitalist. She will evaluate the patient for further management. Impression Primary Impression: Hypertensive urgency Additional Impression: DVT (deep venous thrombosis) Critical Care I have personally spent 35 minutes of critical care time in the direct management of this patient. This includes bedside care, interpretation of diagnostic studies, and testing, discussion with consultants, patient, and family members, and other required patient management activities. This 35 minutes is in excess of all separately billable procedures. Scribe Attestation The scribe's documentation has been prepared under my direction and personally reviewed by me in its entirety. I confirm that the note above accurately reflects all work, treatment, procedures, and medical decision making performed by me. Departure Information Dispostion Being Evaluated By Hospitalist Problem Qualifiers Additional Impression: DVT (deep venous thrombosis) DVT location: lower extremity Affected thrombotic vein of extremity: unspecified vein of extremity Chronicity: unspecified Laterality: unspecified laterality Qualified Codes: I82.409 - Acute embolism and thrombosis of unspecified deep veins of unspecified lower extremity
[2018-03-03 17:42] VITALS: BP 119/67; PULSE 78; TEMP 36.8; O2SAT 99
--- NOTE | 2018-03-03 18:02 | History and Physical ---
History & Physical Date & Time of Service: Mar 03, 2018 at 16:52 Chief Complaint: Abd Pain Primary Care Physician: Maria Alejandra Gonzalez D.O. History of Present Illness Source: patient, hospital records Pt is 67 y/o F with PMH HTN, schizoaffective disorder, anxiety, depression, chronic LLE DVT s/p IVC filter, IBS who presented to ER with multiple medical complaints, primary complaint of abdominal pain. Pt is poor historian. Patient states for the past week has been homeless, she was living at [facility] in [place] and reports was evicted. Patient states has not had a BM for several days and relates this to use reluctance to have BM secondary to no bathroom to use. Today complains of diffuse abdominal aching. Patient states has been sleeping in the streets and sitting on hard concrete ground wearing restrictive boots. She states some chronic swelling of left leg however has noticed some increased swelling left leg. Denies any leg pain or noted erythema. Patient reports allergies to Coumadin and Lovenox, she thinks she had a rash from Coumadin but is unsure with her long list of medicine allergies. Patient with history of alcohol drug dependence symptoms, denies any recent alcohol or drug use. Reports has not taken her BP medications (metoprolol) for past week. States has clonidine to use as needed HTN, however does not typically use. She denies being on any psych meds. She denies suicidal or homicidal ideations. Patient admits to intermittent hallucinations, stating that "sometimes varies were demons inside her". She reports has been having difficulty sleeping and having lots of nightmares, however states she is less scared at nighttime and during the day. She has been feeling very tired for years, increasingly tired the past week since being homeless and under increased stress. Patient reports chronic headaches and intermittent photophobia and blurry vision with stress. It is hard to elicit if she is having any symptoms currently as patient starts rambling. States feeling very stressed "feels like her insides are coming through her skin and she is under so much pressure that she feels like her body is going to pop". Chronic SOB when she feels anxious. She is denying any current SOB. She is denying any current or recent CP to this provider. C/O chronic back pain, R back pain, diffuse paresthesias but denies any recent increased symptoms. States has not been eating or drinking well past week secondary to difficulty obtaining food and water. Denies epistaxis, melena, hematochezia, hematuria or any other noted bleeding. Denies fever/chills, diaphoresis, N/V/D, dizziness, syncope, neck pain, orthopnea, palpitations, cough, sore throat, choking, otalgia, rhinorrhea, rashes, urinary symptoms. Past Medical/Surgical History Medical Problems: (1) Anxiety Status: Chronic (2) Chronic pelvic pain of female Status: Chronic (3) DVT (deep venous thrombosis) Status: Chronic (4) DVT (deep venous thrombosis) Status: Chronic (5) H/O drug abuse Status: Chronic (6) Hypertension Status: Chronic (7) IBS Status: Chronic (8) Posttraumatic stress disorder Status: Chronic (9) Schizoaffective disorder Status: Chronic (10) Suicide attempt Permanent Comment: acetaminophen OD Status: Chronic (11) Tobacco abuse Status: Chronic Surgical Problems: (1) Cystoscopy Status: Resolved (2) h/o inferior vena cava filter placement Status: Chronic (3) Tonsillectomy Status: Resolved Social History Problems: (1) IVC filter Status: Chronic Family History Cancer MOTHER (Colon ) Diabetes mellitus FATHER Endocrine disorder SISTER (Thyroid) FH: mental illness SISTER Heart disease FATHER MOTHER Stroke Social History Smoking Status: Current Every Day Smoker (she reports "sometimes smokes, hasn' t been recently as doesn't have money to buy cigarettes") Smokeless Tobacco Use: No Alcohol Use: denies recent use Drug Use: none Marital Status: single Housing status: other (currently homeless) Occupational Status: unemployed Immunizations History of Influenza Vaccine: No History of Tetanus Vaccine?: Yes Tetanus Immunization Date: Feb 20, 1999 History of Pneumococcal: No History of Hepatitis B Vaccine: No Allergies Coded Allergies: Atropine (Verified Allergy, Severe, ludwig, hard time breathing, 03/03/18) Clonidine (Unverified Allergy, Severe, RAISES B.P., ANXIOUSNESS, 03/03/18) Diphenhydramine (Verified Allergy, Severe, "I ALMOST .", 03/03/18) Hyoscyamine (Verified Allergy, Severe, ludwig, hard time breathing, 03/03/18) Labetalol (Verified Allergy, Severe, selling,loss of taste,itch, rash, ) Phenobarbital (Verified Allergy, Severe, ludwig, hard time breathing, 03/03/18) Prednisone (Verified Allergy, Severe, Edema face,lips and tongue., 03/03/18 ) Meticorten Scopolamine (Verified Allergy, Severe, ludwig, hard time breathing, 03/03/18) Enoxaparin (Verified Allergy, Intermediate, RASH, 03/03/18) Levofloxacin (Verified Allergy, Intermediate, ARM TURNED "FIREY RED" WHEN INFUSED, CLEARED IN A FEW HOURS, 03/03/18) Tramadol (Verified Allergy, Intermediate, blisters all over, 03/03/18) Warfarin (Verified Allergy, Intermediate, rash, 03/03/18) Chlorpromazine (Verified Allergy, Mild, TOLERATING PROLIXIN AT HOME , 03/03/18) Penicillins (Verified Allergy, Mild, 03/03/18) Coumarin (Verified Allergy, Unknown, UNKNOWN, 03/03/18) Naproxen (Verified Allergy, Unknown, Unknown, 03/03/18) Morphine (Verified Adverse Reaction, Severe, SHOCK;TOLERATES DEMEROL, 03/03) ABLE TO TAKE DEMEROL WITHOUT DIFFICULTY Aspirin (Verified Adverse Reaction, Intermediate, BLEEDING, 03/03/18) Codeine (Verified Adverse Reaction, Intermediate, BP DROPS AND PASSES OUT, 03/03/18) Replaces CODEINE PHOSP Dicyclomine (Verified Adverse Reaction, Intermediate, GI SYMPTOMS, 03/03/18 ) Ibuprofen (Verified Adverse Reaction, Intermediate, BLEEDING, 03/03/18) Amitriptyline (Verified Adverse Reaction, Mild, Nausea/vomitimg, 03/03/18) Lisinopril (Verified Adverse Reaction, Mild, COUGH, 03/03/18) Nitrofurantoin (Verified Adverse Reaction, Unknown, hallucinating, 03/03/18 ) Home Medications Scheduled Calcium Carbonate (Tums), 500 MG PO DAILY Metoprolol Tartrate (Lopressor) (Lopressor), 50 MG PO BID Scheduled PRN Aspirin (Aspirin Ec), 81 MG SL DAILY PRN for BLOOD THINNING AFFECT Clonidine Hcl (Catapres), 0.3 MG PO DAILY PRN for HIGH BP Review of Systems See HPI for pertinent positives & negatives. All other systems reviewed and were otherwise negative Physical Exam Vital Signs Date Time Temp Pulse Resp B/P (MAP) Pulse Ox O2 Delivery O2 Flow Rate FiO2 03/03/18 15:09 72 18 177/93 100 Room Air 03/03/18 14:13 70 19 196/112 100 Room Air 03/03/18 12:50 64 14 204/93 99 Room Air 03/03/18 11:14 209/94 03/03/18 11:06 36.6 80 19 207/104 100 Room Air General Appearance: WD/WN, no apparent distress, + pertinent finding (Pt lying supine in bed with blankets covering her head. ) Head: normocephalic, atraumatic Eyes: normal inspection, PERRL, EOMI, sclerae normal ENT: hearing grossly normal, pharynx normal, + pertinent finding (mucous membranes mildly dry) Neck: supple, trachea midline Respiratory/Chest: chest non-tender, lungs clear, normal breath sounds, no respiratory distress Cardiovascular: regular rate, rhythm, normal peripheral pulses Abdomen/GI: normal bowel sounds, soft, + tenderness (diffuse abdominal tenderness to palpation without rebound or guarding) Back: no CVA tenderness Extremities/Musculoskelatal: normal capillary refill, normal range of motion, non-tender, + pertinent finding (left calf slightly larger than right) Skin: warm/dry Diagnostics Laboratory Results Results Past 24 Hours Test 03/03/18 10:59 03/03/18 11:45 03/03/18 13:41 Range/Units White Blood Count 7.66 4.8-10.8 K/uL Red Blood Count 4.62 4.2-5.4 M/uL Hemoglobin 14.6 12.0-16.0 g/dL Hematocrit 42.6 37-47 % Mean Corpuscular Volume 92.2 80-100 fL Mean Corpuscular Hemoglobin 31.6 25-34 pg Mean Corpuscular Hemoglobin Concent 34.3 32-36 g/dl Platelet Count 383 130-400 K/uL Mean Platelet Volume 9.1 7.4-10.4 fL Neutrophils (%) (Auto) 64.3 % Lymphocytes (%) (Auto) 27.4 % Monocytes (%) (Auto) 7.8 % Eosinophils (%) (Auto) 0.0 % Basophils (%) (Auto) 0.4 % Neutrophils # (Auto) 4.92 1.4-6.5 K/uL Lymphocytes # (Auto) 2.10 1.2-3.4 K/uL Monocytes # (Auto) 0.60 0.11-0.59 K/uL Eosinophils # (Auto) 0.00 0-0.5 K/uL Basophils # (Auto) 0.03 0-0.2 K/uL RDW Standard Deviation 48.9 36.4-46.3 fL RDW Coefficient of Variation 14.5 11.5-14.5 % Immature Granulocyte % (Auto) 0.1 % Immature Granulocyte # (Auto) 0.01 0.00-0.02 K/uL Sodium Level 135 136-145 mmol/L Potassium Level 4.0 3.5-5.1 mmol/L Chloride Level 106 98-107 mmol/L Carbon Dioxide Level 24 21-32 mmol/L Anion Gap 5.0 3-11 mmol/L Blood Urea Nitrogen 8 7-18 mg/dl Creatinine 0.75 0.60-1.20 mg/dl Est Creatinine Clear Calc Drug Dose 64.1 ml/min Estimated GFR () 96.9 Estimated GFR (Non- 83.6 BUN/Creatinine Ratio 10.3 10-20 Random Glucose 108 70-99 mg/dl Calcium Level 9.0 8.5-10.1 mg/dl Magnesium Level 2.2 1.8-2.4 mg/dl Total Bilirubin 0.5 0.2-1 mg/dl Direct Bilirubin < 0.1 0-0.2 mg/dl Aspartate Amino Transf (AST/SGOT) 19 15-37 U/L Alanine Aminotransferase (ALT/SGPT) 39 12-78 U/L Alkaline Phosphatase 104 45-117 U/L Troponin I < 0.015 0-0.045 ng/ml Total Protein 8.2 6.4-8.2 gm/dl Albumin 3.8 3.4-5.0 gm/dl Lipase 335 73-393 U/L Thyroid Stimulating Hormone (TSH) 1.080 0.300-4.500 uIu/ml Salicylates Level 3.0 2.8-20 mg/dl Acetaminophen Level < 2 10-30 ug/ml Ethyl Alcohol mg/dL < 3.0 0-3 mg/dl Urine Color YELLOW Urine Appearance CLEAR CLEAR Urine pH 8.0 4.5-7.5 Urine Specific [place] 1.011 1.000-1.030 Urine Protein NEG NEG Urine Glucose (UA) NEG NEG Urine Ketones NEG NEG Urine Occult Blood NEG NEG Urine Nitrite NEG NEG Urine Bilirubin NEG NEG Urine Urobilinogen NEG NEG Urine Leukocyte Esterase TRACE NEG Urine WBC (Auto) 1-5 0-5 /hpf Urine RBC (Auto) 0-4 0-4 /hpf Urine Hyaline Casts (Auto) 0 0-5 /lpf Urine Epithelial Cells (Auto) 20-30 0-5 /lpf Urine Bacteria (Auto) NEG NEG Urine Test NEG NEG Urine Opiates Screen NEG NEG Urine Methadone, Qualitative NEG NEG Urine Barbiturates NEG NEG Urine Phencyclidine (PCP) Level NEG NEG Ur Amphetamine/Methamphetamine NEG NEG MDMA (Ecstasy) Screen NEG NEG Urine Benzodiazepines Screen NEG NEG Urine Cocaine Metabolite NEG NEG Urine Marijuana (THC) NEG NEG Activated Partial Thromboplast Time 25.5 21.0-31.0 SECONDS Partial Thromboplastin Ratio 1.[address] ABD/PELVIS: IMPRESSION: 1. Moderate formed colonic stool suggests constipation. No bowel obstruction or focal bowel wall thickening. 2. Urinary bladder distention without hydronephrosis. 3. Additional findings as above. LLE DVT: FINDINGS: Mild linear echogenic stranding within the common femoral vein without occluding thrombus. Echogenic thrombus is noted within one of the paired peroneal veins which appears to be partially occlusive. Otherwise, there is normal compressibility, flow, phasicity and augmentation of the remaining deep venous structures. IMPRESSION: 1. Partially occlusive deep venous thrombosis involves one of the peroneal veins. 2. Nonocclusive thrombus of the common femoral vein. EKG EKG: normal sinus rhythm, rate 72, noted decreased T wave amplitude in II, III, V2-V6 leads Impression Assessment and Plan Pt is 67 y/o F with PMH HTN, schizoaffective disorder, anxiety, depression, chronic LLE DVT s/p IVC filter, IBS who presented to ER with c/o abdominal pain. HTN URGENCY Pt has not taken her metoprolol for one week. In ER initial BP 207/104. Patient was given 1 L NSS, metoprolol 50 mg p.o., clonidine 0.3 mg p.o., Ativan 1 mL SL, hydralazine 10 mg IV. BP down to 155/ 73. Initial troponin negative, no ST elevation noted. Patient denies any chest pain to this provider, reports episodes shortness of breath/LUDWIG/dizziness/blurry vision with stress -Telemetry initially to monitor -Continue metoprolol ABDOMINAL PAIN Secondary to CONSTIPATION CT abd/pelvis: Moderate formed colonic stool suggests constipation. No bowel obstruction or focal bowel wall thickening. Urinary bladder distention without hydronephrosis. U/A unremarkable. Pt afebrile, no leukocytosis, CMP, liver functions unremarkable -Miralax QID until BM DVT LLE - Present upon admission HX CHRONIC LLE DVT S/P IVC filter In ER O2 sats: 98-100% on RA, P: 60-80. Denies increased SOB. Denies specific CP to this provider, diffuse "all over pain" Today ER US LLE: Partially occlusive deep venous thrombosis involves one of the peroneal veins. Nonocclusive thrombus of the common femoral vein. -Hx US BLE in 08/2017: Left calf DVT involving one of the 2 peroneal veins, Fibrin stranding within the left common femoral and superficial femoral veins, likely chronic -Heparin IV started in ER -CTA chest was unable to be performed in ER secondary to lack of IV access -Pending VQ scan to R/O PE -In past reported pt allergy to couamdin ?rash and an allergy to lovenox. In past unable to affords NOACs. Pt would be poor candidate for coumadin secondary to lack of monitoring -D-dimer pending, consider possible starting NOAC if elevated or positive VQ scan SCHIZOAFFECTIVE DISORDER Patient has current 302 warrant. She is currently homeless. Hx of being unable to care for herself. Denies any current suicidal or homicidal ideations. In ER negative urine drug screen. -Denies any use of psych medications -psych consult DVT Prophylaxis -Initially started on Heparin IV Admit tele Full Code as per discussion with pt Follows with Dr Maria Alejandra Gonzalez - Linnea Kahn for routine care, however pt reports received a letter that she was discharged from PCP a couple of weeks ago Pt was seen with Dr Esteban. See addendum Advanced Directives Existing Living Will: No Existing Power of Tree Planter: No Resuscitation Status VTE Prophylaxis Will order VTE Prophylaxis: Yes Note ATTENDING ADDENDUM Record reviewed. Patient interviewed and examined. Care coordinated with Katt Corea PA-C. Please refer to her documentation for patient's history. Briefly, 67-year-old female with history of hypertension and other problems. Presented to ED with constipation, abdominal pain, elevated blood pressures. EXAM: General- no distress Lungs- clear to auscultation; no respiratory distress Cardiovascular- RRR; no JVD; trace left pretibial edema Abdomen- + bowel sounds, soft, slightly distended, diffusely tenderness without rebound Extremities- no cyanosis; no calf tenderness Neuropsych- anxious Skin- warm & dry DATA: Serum troponin normal. D-dimer 430. Other lab studies as noted. CT of abdomen and pelvis demonstrated constipation, distended bladder, no acute findings. EKG performed at 1558 reviewed and demonstrated normal sinus rhythm at 72/ minute, no acute ST or T-wave changes. ASSESSMENT AND PLAN: Hypertensive urgency. Probably secondary to combination of noncompliance with medications and discomfort from abdominal pain. Resume antihypertensive medications. Follow and titrate therapy. DVT left lower extremity. Appears to be chronic. Normal d-dimer supportive of no acute thromboembolic disease. VQ low probability for PE. S/P IV filter. At high risk of complications of anticoagulants due to medical noncompliance and poor outpatient follow-up. Discontinue IV heparin. SQ heparin during hospital stay for VTE prophylaxis. Atypical chest pain. Troponin normal. No acute EKG changes. No evidence of pulmonary embolism. History of schizoaffective disorder, depression, posttraumatic stress syndrome. Currently homeless and apparently without much social support. Consult Psychiatry and Case Management. Please refer to NOLVIA Meyer's documentation for discussion of other issues. Bonifacio Esteban MD .
[2018-03-03] MEDS ORDERED: HEPARIN 25,000 UNIT/500ML D5W 500 ML IV SCH (18:45)
[2018-03-03] MEDS ORDERED: NURSING VERBAL MED ORDER ONE (18:45)
[2018-03-03 19:41] VITALS: BP 96/46; PULSE 63; TEMP 36.5; O2SAT 99
[2018-03-03 19:54] VITALS: BP 102/63; PULSE 68
--- NOTE | 2018-03-03 19:58 | DIAGNOSTIC IMAGING REPORT ---
LUNG IMAGING VQ CLINICAL HISTORY: dvts w/ atypical chest pain and shortness of breath.. COMPARISON STUDY: Chest 02/25/2018. TECHNIQUE: Immediately following the inhalation of 30 mCi of technetium 99 M DTPA for the ventilation scan and the intravenous administration of 6 mCi of technetium 99 M MAA for the perfusion scan, anterior, oblique, lateral, and posterior views of the chest were obtained. FINDINGS: There are no segmental or mismatched defects identified within the lungs. The lungs appear to demonstrate normal perfusion and ventilation. IMPRESSION: Above findings consistent with a very low probability scan. Electronically signed by: Montrell Wang M.D. 03/03/2018 7:57 PM Dictated Date/Time: 03/03/2018 7:55 PM
[2018-03-03] MEDS ORDERED: METOPROLOL TARTRATE 50 MG TAB PO SCH (21:00)
[2018-03-03] MEDS: POLYETHYLENE (MIRALAX) 17 GM PACK PO SCH (21:00)
[2018-03-03] MEDS ORDERED: SIMETHICONE 80 MG CHEW PO PRN (22:30)
--- NOTE | 2018-03-03 23:09 | DIAGNOSTIC IMAGING REPORT ---
RIGHT LOWER EXTREMITY VENOUS DOPPLER HISTORY: Left leg DVT. Right leg swelling. COMPARISON STUDY: None. FINDINGS: There is normal compressibility, flow, and augmentation within the right lower extremity deep venous system. IMPRESSION: No DVT within the right lower extremity Electronically signed by: Montrell Wang M.D. 03/03/2018 11:07 PM Dictated Date/Time: 03/03/2018 11:07 PM
[2018-03-03 23:16] VITALS: BP 91/53; PULSE 91; TEMP 36.7; O2SAT 98
[2018-03-03] MEDS ORDERED: SODIUM CHLORIDE 0.9% 500ML 500 ML IV SCH (23:30)
[2018-03-04] VITALS (10 sets, daily range): BP systolic 99–148; BP diastolic 51–91; PULSE 75–100; TEMP 36.6–36.8; O2SAT 95–97
[2018-03-04 06:06] LABS: HEMATOCRIT 37.1 % (37-47); HEMOGLOBIN 12.5 g/dL (12.0-16.0); MEAN CELL VOLUME 92.1 fL (80-100); MEAN CORPUSCULAR HGB CONC 33.7 g/dl (32-36); MEAN PLATELET VOLUME 9.3 fL (7.4-10.4); PLATELET COUNT 371 K/uL (130-400); RED CELL DISTRIBUTION WIDTH CV 14.6 % (11.5-14.5); RED CELL DISTRIBUTION WIDTH SD 49.5 fL (36.4-46.3); WHITE BLOOD COUNT 8.52 K/uL (4.8-10.8)
[2018-03-04 06:41] LABS: CALCIUM 8.3 mg/dl (8.5-10.1); CREATININE 0.87 mg/dl (0.60-1.20); POTASSIUM 3.6 mmol/L (3.5-5.1)
[2018-03-04] MEDS: METOPROLOL TARTRATE 25 MG TAB PO SCH ×2 (07:37→21:18)
[2018-03-04] MEDS: POLYETHYLENE (MIRALAX) 17 GM PACK PO SCH ×4 (07:38→21:00)
[2018-03-04] MEDS: HEPARIN SOD 5000 UNIT/0.5 ML CARP SQ SCH ×3 (07:39→21:21)
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
--- NOTE | 2018-03-04 20:26 | Progress Note ---
Medicine Progress Note Date & Time of Visit: Mar 04, 2018 at 14:20 . Subjective CC: Follow-up visit for multiple concerns. HPI: Anxious, upset. Hurts "all over." Numb "all over." No BM yet. Persistent abdominal pain. Evicted from her trailer and feels that she has been treated unfairly. Blood pressures fluctuating, but improved. ROS: as noted above in HPI . Objective Last 8 Hrs Date Time Temp Pulse Resp B/P (MAP) Pulse Ox O2 Delivery O2 Flow Rate FiO2 03/04/18 19:39 36.7 98 19 107/80 (89) 97 Room Air 03/04/18 16:22 36.7 75 18 122/77 (92) 97 Room Air 03/04/18 16:00 97 Room Air Physical Exam: General- anxious, no acute distress Lungs- clear to auscultation; no respiratory distress Cardiovascular- RRR; no murmur or gallop appreciated; no JVD; no pretibial edema Abdomen- + bowel sounds, soft, nontender Extremities- no cyanosis; no calf tenderness Neuropsych- alert, pressured speech, poor insight Skin- warm & dry . Laboratory Results: Last 24 Hours Test 03/03/18 23:39 03/04/18 05:25 Troponin I < 0.015 ng/ml White Blood Count 8.52 K/uL Red Blood Count 4.03 M/uL Hemoglobin 12.5 g/dL Hematocrit 37.1 % Mean Corpuscular Volume 92.1 fL Mean Corpuscular Hemoglobin 31.0 pg Mean Corpuscular Hemoglobin Concent 33.7 g/dl RDW Standard Deviation 49.5 fL RDW Coefficient of Variation 14.6 % Platelet Count 371 K/uL Mean Platelet Volume 9.3 fL Sodium Level 138 mmol/L Potassium Level 3.6 mmol/L Chloride Level 108 mmol/L Carbon Dioxide Level 22 mmol/L Anion Gap 8.0 mmol/L Blood Urea Nitrogen 12 mg/dl Creatinine 0.87 mg/dl Est Creatinine Clear Calc Drug Dose 51.0 ml/min Estimated GFR () 81.0 Estimated GFR (Non- 69.9 BUN/Creatinine Ratio 13.4 Random Glucose 79 mg/dl Calcium Level 8.3 mg/dl Assessment & Plan CHEST PAIN Atypical chest pain. WI ruled out. VQ low prob for PE. CHRONIC DVT LLE Noted on previous evaluations. Normal D-dimer consistent with chronicity. Not safe candidate for anticoagulation. S/P IVC filter. HYPERTENSION Metoprolol resumed with improvement. SCHIZOAFFECTIVE DISORDER Psychiatry consulted. VTE PROPHYLAXIS IV heparin --> SQ heparin. DISPOSITION Homeless. Case Management consulted. . Current Inpatient Medications: Current Inpatient Medications Medications (Trade) Dose Ordered Sig/Thiago Route Start Time Stop Time Status Last Admin Dose Admin Ioversol (Optiray 320) 100 ml UD PRN IV 03/03/18 11:15 03/07/18 11:14 Acetaminophen (Tylenol Tab) 650 mg Q4H PRN PO 03/03/18 16:30 04/02/18 16:29 Ondansetron HCl (Zofran Inj) 4 mg Q6H PRN IV 03/03/18 16:30 04/02/18 16:29 Polyethylene (Miralax Powder Packet) 17 gm QID PO 03/03/18 18:00 04/02/18 17:59 03/04/18 07:38 17 GM Simethicone (Mylicon Chew Tab) 80 mg Q6H PRN PO 03/03/18 22:30 04/02/18 22:29 Heparin Sodium (Porcine) (Heparin Sq 5000 Unit/0.5ml) 5,000 unit Q8 SQ 03/04/18 06:00 04/03/18 05:59 03/04/18 07:39 5,000 UNIT Metoprolol Tartrate (Lopressor Tab) 25 mg BID PO 03/04/18 09:00 04/03/18 08:59 03/04/18 07:37 25 MG
[2018-03-05] VITALS (7 sets, daily range): BP systolic 103–165; BP diastolic 50–91; PULSE 71–110; TEMP 36.4–36.7; O2SAT 96–99
[2018-03-05] MEDS: HEPARIN SOD 5000 UNIT/0.5 ML CARP SQ SCH ×3 (05:07→20:49)
[2018-03-05] MEDS: POLYETHYLENE (MIRALAX) 17 GM PACK PO SCH ×4 (07:37→15:47)
[2018-03-05] MEDS: METOPROLOL TARTRATE 25 MG TAB PO SCH ×2 (07:37→21:38)
[2018-03-05] MEDS ORDERED: SOAP SUDS ENEMA PR ONE (15:00)
[2018-03-05] MEDS ORDERED: BISACODYL 5 MG TABEC PO ONE (18:30)
--- NOTE | 2018-03-05 21:46 | Progress Note ---
Medicine Progress Note Date & Time of Visit: Mar 05, 2018 at 13:25 . Subjective CC: Follow-up visit for multiple concerns. HPI: Blood pressures improved. Multiple somatic complaints. Ongoing abdominal discomfort with nausea, but no emesis. Told behavioral health staff that she had a bowel movement, but told me that she did not. Doesn't like MiraLax. Drank some of her own mineral oil from her purse. Repeated requests for something for her nerves. Wants to go back to her residence; feels that the system is not supporting her. ROS: as noted above in HPI . Objective Last 8 Hrs Date Time Temp Pulse Resp B/P (MAP) Pulse Ox O2 Delivery O2 Flow Rate FiO2 03/05/18 20:48 71 147/87 (107) 03/05/18 16:00 Room Air 03/05/18 15:20 36.7 91 17 160/91 (114) 99 Room Air Physical Exam: General- no acute distress Lungs- clear to auscultation; no respiratory distress Cardiovascular- RRR; no murmur or gallop appreciated; no JVD; no pretibial edema Abdomen- + bowel sounds, soft, nontender Extremities- no cyanosis; no calf tenderness Neuropsych- alert, anxious, pressured speech, tangential thoughts, poor insight Skin- warm & dry . Assessment & Plan CHEST PAIN Atypical chest pain. MO ruled out. VQ low prob for PE. CHRONIC DVT LLE Noted on previous evaluations. Normal D-dimer consistent with chronicity. Not safe candidate for anticoagulation. S/P IVC filter. HYPERTENSION Hypertensive urgency at time of admission. Had not been taking her prescribed meds. Metoprolol resumed with improvement. CONSTIPATION Refusing MiraLax. Initially agreed to enema, then refused. Drinking her own mineral oil from purse. Records reviewed. Had colonoscopy performed in 2010 and was unremarkable. SCHIZOAFFECTIVE DISORDER Psychiatry consulted. VTE PROPHYLAXIS IV heparin --> SQ heparin. DISPOSITION Homeless (evicted from rented trailer). Outpatient case management arranged for a long-term, but patient refused. Estranged from family. 302 filed. Case Management consulted. . Current Inpatient Medications: Current Inpatient Medications Medications (Trade) Dose Ordered Sig/Thiago Route Start Time Stop Time Status Last Admin Dose Admin Ioversol (Optiray 320) 100 ml UD PRN IV 03/03/18 11:15 03/07/18 11:14 Acetaminophen (Tylenol Tab) 650 mg Q4H PRN PO 03/03/18 16:30 04/02/18 16:29 Ondansetron HCl (Zofran Inj) 4 mg Q6H PRN IV 03/03/18 16:30 04/02/18 16:29 Polyethylene (Miralax Powder Packet) 17 gm QID PO 03/03/18 18:00 04/02/18 17:59 03/04/18 07:38 17 GM Simethicone (Mylicon Chew Tab) 80 mg Q6H PRN PO 03/03/18 22:30 04/02/18 22:29 Heparin Sodium (Porcine) (Heparin Sq 5000 Unit/0.5ml) 5,000 unit Q8 SQ 03/04/18 06:00 04/03/18 05:59 03/04/18 21:21 5,000 UNIT Metoprolol Tartrate (Lopressor Tab) 25 mg BID PO 03/04/18 09:00 04/03/18 08:59 03/05/18 21:38 25 MG
[2018-03-06] MEDS: HEPARIN SOD 5000 UNIT/0.5 ML CARP SQ SCH ×3 (05:51→20:21)
[2018-03-06 06:52] VITALS: BP 149/82; PULSE 77; TEMP 36.4; O2SAT 98
[2018-03-06] MEDS: POLYETHYLENE (MIRALAX) 17 GM PACK PO SCH ×4 (07:36→20:00)
[2018-03-06] MEDS: METOPROLOL TARTRATE 25 MG TAB PO SCH ×2 (07:36→20:23)
[2018-03-06 14:57] VITALS: BP 144/79; PULSE 97; TEMP 36.6; O2SAT 96
[2018-03-06 20:22] VITALS: BP 154/73; PULSE 97
[2018-03-06 22:20] VITALS: BP 114/77; PULSE 89; TEMP 36.7; O2SAT 96
--- NOTE | 2018-03-06 23:43 | Progress Note ---
Medicine Progress Note Date & Time of Visit: Mar 06, 2018 at 13:40 . Subjective Had a bowel movement this morning and feels much better. No new complaints or concerns. . Objective Last 8 Hrs Date Time Temp Pulse Resp B/P (MAP) Pulse Ox O2 Delivery O2 Flow Rate FiO2 03/06/18 22:20 36.7 89 16 114/77 (89) 96 Room Air 03/06/18 20:22 97 154/73 (100) 03/06/18 20:00 Room Air 03/06/18 16:00 Room Air Physical Exam: General- no distress Lungs- clear to auscultation; no respiratory distress Cardiovascular- RRR; no murmur or gallop appreciated; no JVD; no pretibial edema Abdomen- + bowel sounds, soft, nontender Extremities- no cyanosis; no calf tenderness Neuropsych- alert, more focused, less anxious Skin- warm & dry . Assessment & Plan CHEST PAIN Atypical chest pain. DE ruled out. VQ low prob for PE. CHRONIC DVT LLE Noted on previous evaluations. Normal D-dimer consistent with chronicity. Not safe candidate for anticoagulation. S/P IVC filter. HYPERTENSION Hypertensive urgency at time of admission. Reportedly had not been taking her prescribed meds. Metoprolol resumed with improvement. CONSTIPATION Bowel movement today after taking mineral oil. Records reviewed. Had colonoscopy performed in 2010 and was unremarkable. SCHIZOAFFECTIVE DISORDER Psychiatry consulted. VTE PROPHYLAXIS IV heparin --> SQ heparin. DISPOSITION Homeless (evicted from rented trailer). Outpatient case management arranged for a snf, but patient refused. Estranged from family. 302 filed. Case Management consulted. ADDENDUM: Spoke with Psychiatry liaison this afternoon around 1600 regarding 302 petition. Liaison and I met with the patient at approximately 1615 to assess her together. The patient was calm and cooperative, well-dressed and well-groomed. Alert and oriented to person, place, time and date. Able to name the current and past president. Able to demonstrate insight into her current condition. Denies suicidal or homicidal ideation. Denies visual or auditory hallucinations. Concerns about her safety and wellbeing expressed by outpatient case management specialist and others were discussed. Main concerns have been her recent homeless situation after eviction from her trailer and her ability to take her medications as prescribed. Patient currently has 1 or 2 bottles of metoprolol for her hypertension. That is her only necessary prescription medication at this time. She realizes that she cannot be living on the street. Able to articulate her plan for housing. States that she will be receiving her monthly direct deposit tomorrow and with that money will be able to stay in a hotel short-term and get assistance obtaining her belongings from the trailer while she find another place to stay. Realizes that the weekend is coming up and plans on making a hotel reservation to make sure that she has a place to go. Patient was offered a voluntary inpatient psychiatric stay. She feels that it is not necessary and is not interested. Based on current psychiatric/cognitive assessment it does not appear that an involuntary commitment is necessary or appropriate at this time. Physician part of 302 form completed. Will ask [facility] Case Management to coordinate outpatient support with [facility] and [facility]. . Current Inpatient Medications: Current Inpatient Medications Medications (Trade) Dose Ordered Sig/Thiago Route Start Time Stop Time Status Last Admin Dose Admin Ioversol (Optiray 320) 100 ml UD PRN IV 03/03/18 11:15 03/07/18 11:14 Acetaminophen (Tylenol Tab) 650 mg Q4H PRN PO 03/03/18 16:30 04/02/18 16:29 Ondansetron HCl (Zofran Inj) 4 mg Q6H PRN IV 03/03/18 16:30 04/02/18 16:29 Polyethylene (Miralax Powder Packet) 17 gm QID PO 03/03/18 18:00 04/02/18 17:59 03/04/18 07:38 17 GM Simethicone (Mylicon Chew Tab) 80 mg Q6H PRN PO 03/03/18 22:30 04/02/18 22:29 Heparin Sodium (Porcine) (Heparin Sq 5000 Unit/0.5ml) 5,000 unit Q8 SQ 03/04/18 06:00 04/03/18 05:59 03/04/18 21:21 5,000 UNIT Metoprolol Tartrate (Lopressor Tab) 25 mg BID PO 03/04/18 09:00 04/03/18 08:59 03/06/18 20:23 25 MG
[2018-03-07] MEDS: HEPARIN SOD 5000 UNIT/0.5 ML CARP SQ SCH (06:00)
[2018-03-07 07:31] VITALS: BP 142/94; PULSE 84; TEMP 36.4; O2SAT 98
[2018-03-07] MEDS: POLYETHYLENE (MIRALAX) 17 GM PACK PO SCH (08:00)
[2018-03-07] MEDS: METOPROLOL TARTRATE 25 MG TAB PO SCH (08:03)
--- NOTE | 2018-03-07 11:10 | Progress Note ---
Medicine Progress Note Date & Time of Visit: Mar 07, 2018 at 11:10 . Subjective Doing well. No new concerns. Would like to be discharged. . Objective Last 8 Hrs Date Time Temp Pulse Resp B/P (MAP) Pulse Ox O2 Delivery O2 Flow Rate FiO2 03/07/18 08:00 Room Air 03/07/18 07:31 36.4 84 18 142/94 (110) 98 Room Air Physical Exam: General- no distress Lungs- clear to auscultation; no respiratory distress Cardiovascular- RRR; no murmur or gallop appreciated; no JVD; no pretibial edema Abdomen- + bowel sounds, soft, nontender Extremities- no cyanosis; no calf tenderness Neuropsych- alert, more focused, less anxious Skin- warm & dry . Assessment & Plan CHEST PAIN Atypical chest pain. NV ruled out. VQ low prob for PE. CHRONIC DVT LLE Noted on previous evaluations. Normal D-dimer consistent with chronicity. Not safe candidate for anticoagulation. S/P IVC filter. HYPERTENSION Hypertensive urgency at time of admission. Reportedly had not been taking her prescribed meds. Metoprolol resumed with improvement. BP's low at times. Metoprolol tartrate dose decreased to 25 mg BID. BP's fluctuations related to underlying anxiety / stress. Systolic BP's as low as 103 on metoprolol 25 mg BID; best not to treat too aggressively and increase risk of side effects. CONSTIPATION Chronic problem. Offered different options for bowel regimen. Records reviewed. Had colonoscopy performed in 2010 and was unremarkable. SCHIZOAFFECTIVE DISORDER Psychiatry consulted. VTE PROPHYLAXIS IV heparin --> SQ heparin. DISPOSITION As detailed in documentation from Case Management and Psychiatry, patient was initially brought to ED with 302 petition. There were concerns about her safety related to underlying psychiatric problems , homelessness, noncompliance with medications. Psychiatric symptoms improved and by 03/06 patient was oriented, appropriate, showed insight, and was able to articulate a reasonable plan for short term mcc and longer term plans. Patient's history and psychiatric problems noted, but felt that 302 inpatient psychiatric admission was not indicated at this time. Follow-up with PCP Dr. Gonzalez in [place]. . Current Inpatient Medications: Current Inpatient Medications Medications (Trade) Dose Ordered Sig/Thiago Route Start Time Stop Time Status Last Admin Dose Admin Ioversol (Optiray 320) 100 ml UD PRN IV 03/03/18 11:15 83/18 11:14 Acetaminophen (Tylenol Tab) 650 mg Q4H PRN PO 03/03/18 16:30 04/02/18 16:29 Ondansetron HCl (Zofran Inj) 4 mg Q6H PRN IV 03/03/18 16:30 04/02/18 16:29 Polyethylene (Miralax Powder Packet) 17 gm QID PO 03/03/18 18:00 04/02/18 17:59 03/04/18 07:38 17 GM Simethicone (Mylicon Chew Tab) 80 mg Q6H PRN PO 03/03/18 22:30 04/02/18 22:29 Heparin Sodium (Porcine) (Heparin Sq 5000 Unit/0.5ml) 5,000 unit Q8 SQ 03/04/18 06:00 04/03/18 05:59 03/04/18 21:21 5,000 UNIT Metoprolol Tartrate (Lopressor Tab) 25 mg BID PO 03/04/18 09:00 04/03/18 08:59 03/07/18 08:03 25 MG
[2018-03-07] MEDS ORDERED: METO-551 PO (11:12)
--- NOTE | 2018-03-07 11:19 | Discharge Instructions ---
Discharge Instructions Date of Service Mar 07, 2018. Admission Reason for Admission: chest pain, high blood pressure . Discharge Discharge Diagnosis / Problem: chest pain- no sign of heart attack, no sign of blood clots in your lungs Discharge Goals Goal(s): Decrease discomfort, Improve disease control Activity Recommendations Activity Limitations: resume your previous activity . Instructions / Follow-Up Instructions / Follow-Up APPOINTMENTS: FAMILY MEDICINE Please call Dr. Gonzalez's office for an appointment next week. OTHER INSTRUCTIONS: Your blood pressure tends to fluctuate with your stress level. Right now, your blood pressures are pretty good most of the time on metoprolol ( Lopressor) 25 mg twice a day. Would continue that dose for now. You can use your 50 mg pills and take 1/2 pill twice a day. You may try different nonprescription medications as directed on the container for your constipation: mineral oil MiraLax Metamucil Citrucel Milk of Magnesia Please do not smoke. Seek medical attention if you have: * temperature above 101 * chest pain or trouble breathing * abdominal pain, nausea, vomiting * diarrhea, dark stools or bloody stools * any unanswered questions or concerns Call 911 if symptoms are severe. Call if you have any questions or problems. You can reach a [facility] hospitalist on duty at [facility] 24 hours a day by calling [phone]. Please take good care of yourself. Bonifacio Esteban . Current Hospital Diet Patient's current hospital diet: AHA Diet (Heart Healthy) Discharge Diet Recommended Diet: AHA Diet (Heart Healthy) Pending Studies Studies pending at discharge: no Medical Emergencies . Who to Call and When: Medical Emergencies: If at any time you feel your situation is an emergency, please call 911 immediately. . Non-Emergent Contact Non-Emergency issues call your: Primary Care Provider, Hospital Doctor . . "Provider Documentation" section prepared by Bonifacio Esteban. .
[2018-03-07 11:51] VITALS: BP 142/94; PULSE 84; TEMP 36.4; O2SAT 98
--- NOTE | 2018-03-08 05:36 | Discharge Summary ---
Discharge Summary Date of Service Mar 08, 2018. Discharge Summary Admission Date: Mar 03, 2018 at 16:24 Discharge Date: Mar 07, 2018 Discharge Disposition: Home Principal Diagnosis: chest pain- AZ and PE ruled out hypertensive urgency chronic DVT LLE . Secondary Diagnoses/Problems: Chronic and Resolved Medical Problems: (1) Anxiety Status: Chronic (2) Chronic pelvic pain of female Status: Chronic (3) DVT (deep venous thrombosis) Status: Chronic (4) DVT (deep venous thrombosis) Status: Chronic (5) H/O drug abuse Status: Chronic (6) Hypertension Status: Chronic (7) IBS Status: Chronic (8) Posttraumatic stress disorder Status: Chronic (9) Schizoaffective disorder Status: Chronic (10) Suicide attempt Permanent Comment: acetaminophen OD Status: Chronic (11) Tobacco abuse Status: Chronic Surgical Problems: (1) Cystoscopy Status: Resolved (2) h/o inferior vena cava filter placement Status: Chronic (3) Tonsillectomy Status: Resolved Social History Problems: (1) IVC filter Status: Chronic . Procedures: cardiac monitoring CT abdomen and pelvis venous duplex lower extremities VQ scan . Medication Reconciliation New Medications: Metoprolol Tartrate (Lopressor) 50 Mg Tab 25 MG PO BID, #30 TAB Take 1/2 pill twice a day. Continued Medications: Aspirin (Aspirin Ec) 81 Mg Tab 81 MG SL DAILY PRN for BLOOD THINNING AFFECT Calcium Carbonate (Tums) 500 Mg Chew 500 MG PO DAILY Discontinued Medications: Clonidine Hcl (Catapres) 0.3 Mg Tab 0.3 MG PO DAILY PRN for HIGH BP, TAB Metoprolol Tartrate (Lopressor) (Lopressor) 50 Mg Tab 50 MG PO BID, TAB Admission Information HPI (per Admitting provider): Pt is 67 y/o F with PMH HTN, schizoaffective disorder, anxiety, depression, chronic LLE DVT s/p IVC filter, IBS who presented to ER with multiple medical complaints, primary complaint of abdominal pain. Pt is poor historian. Patient states for the past week has been homeless, she was living at [place] in [place] and reports was evicted. Patient states has not had a BM for several days and relates this to use reluctance to have BM secondary to no bathroom to use. Today complains of diffuse abdominal aching. Patient states has been sleeping in the streets and sitting on hard concrete ground wearing restrictive boots. She states some chronic swelling of left leg however has noticed some increased swelling left leg. Denies any leg pain or noted erythema. Patient reports allergies to Coumadin and Lovenox, she thinks she had a rash from Coumadin but is unsure with her long list of medicine allergies. Patient with history of alcohol drug dependence symptoms, denies any recent alcohol or drug use. Reports has not taken her BP medications (metoprolol) for past week. States has clonidine to use as needed HTN, however does not typically use. She denies being on any psych meds. She denies suicidal or homicidal ideations. Patient admits to intermittent hallucinations, stating that "sometimes varies were demons inside her". She reports has been having difficulty sleeping and having lots of nightmares, however states she is less scared at nighttime and during the day. She has been feeling very tired for years, increasingly tired the past week since being homeless and under increased stress. Patient reports chronic headaches and intermittent photophobia and blurry vision with stress. It is hard to elicit if she is having any symptoms currently as patient starts rambling. States feeling very stressed "feels like her insides are coming through her skin and she is under so much pressure that she feels like her body is going to pop". Chronic SOB when she feels anxious. She is denying any current SOB. She is denying any current or recent CP to this provider. C/O chronic back pain, R back pain, diffuse paresthesias but denies any recent increased symptoms. States has not been eating or drinking well past week secondary to difficulty obtaining food and water. Denies epistaxis, melena, hematochezia, hematuria or any other noted bleeding. Denies fever/chills, diaphoresis, N/V/D, dizziness, syncope, neck pain, orthopnea, palpitations, cough, sore throat, choking, otalgia, rhinorrhea, rashes, urinary symptoms. . Physical Exam (per Admitting): General Appearance: WD/WN, no apparent distress, + pertinent finding (Pt lying supine in bed with blankets covering her head. ) Head: normocephalic, atraumatic Eyes: normal inspection, PERRL, EOMI, sclerae normal ENT: hearing grossly normal, pharynx normal, + pertinent finding (mucous membranes mildly dry) Neck: supple, trachea midline Respiratory/Chest: chest non-tender, lungs clear, normal breath sounds, no respiratory distress Cardiovascular: regular rate, rhythm, normal peripheral pulses Abdomen/GI: normal bowel sounds, soft, + tenderness (diffuse abdominal tenderness to palpation without rebound or guarding) Back: no CVA tenderness Extremities/Musculoskelatal: normal capillary refill, normal range of motion , non-tender, + pertinent finding (left calf slightly larger than right) Skin: warm/dry Hospital Course CHEST PAIN Atypical chest pain. AZ ruled out. VQ low prob for PE. CHRONIC DVT LLE Noted on previous evaluations. Normal D-dimer consistent with chronicity. Not safe candidate for anticoagulation. S/P IVC filter. HYPERTENSION Hypertensive urgency at time of admission with initial BP in ED 207/10. Reportedly had not been taking her prescribed meds. Under extreme emotional stress. Metoprolol resumed with improvement. BP's low at times. Metoprolol tartrate dose decreased to 25 mg BID. BP's fluctuations related to underlying anxiety / stress. Systolic BP's as low as 103 on metoprolol 25 mg BID; best not to treat too aggressively and increase risk of side effects. CONSTIPATION Chronic problem. Offered different options for bowel regimen. Records reviewed. Had colonoscopy performed in 2010 and was unremarkable. SCHIZOAFFECTIVE DISORDER Psychiatry consulted. VTE PROPHYLAXIS IV heparin --> SQ heparin. DISPOSITION As detailed in documentation from Case Management and Psychiatry, patient was initially brought to ED with 302 petition. There were concerns about her safety related to underlying psychiatric problems , homelessness, noncompliance with medications. Psychiatric symptoms improved and by / patient was oriented, appropriate, showed insight, and was able to articulate a reasonable plan for short term alf and longer term plans. Patient's history and psychiatric problems noted, but felt that 302 inpatient psychiatric admission was not indicated at this time. Follow-up with PCP Dr. Gonzalez in [place]. . Total time spent on discharge = This includes examination of the patient, discharge planning, medication reconciliation, and communication with other providers. Discharge Instructions Discharge Instructions Date of Service Mar 07, 2018. Admission Reason for Admission: chest pain, high blood pressure . Discharge Discharge Diagnosis / Problem: chest pain- no sign of heart attack, no sign of blood clots in your lungs Discharge Goals Goal(s): Decrease discomfort, Improve disease control Activity Recommendations Activity Limitations: resume your previous activity . Instructions / Follow-Up Instructions / Follow-Up APPOINTMENTS: FAMILY MEDICINE Please call Dr. Gonzalez's office for an appointment next week. OTHER INSTRUCTIONS: Your blood pressure tends to fluctuate with your stress level. Right now, your blood pressures are pretty good most of the time on metoprolol ( Lopressor) 25 mg twice a day. Would continue that dose for now. You can use your 50 mg pills and take 1/2 pill twice a day. You may try different nonprescription medications as directed on the container for your constipation: mineral oil MiraLax Metamucil Citrucel Milk of Magnesia Please do not smoke. Seek medical attention if you have: * temperature above 101 * chest pain or trouble breathing * abdominal pain, nausea, vomiting * diarrhea, dark stools or bloody stools * any unanswered questions or concerns Call 911 if symptoms are severe. Call if you have any questions or problems. You can reach a [facility] hospitalist on duty at [facility] 24 hours a day by calling [phone]. Please take good care of yourself. Bonifacio Esteban . Current Hospital Diet Patient's current hospital diet: AHA Diet (Heart Healthy) Discharge Diet Recommended Diet: AHA Diet (Heart Healthy) Pending Studies Studies pending at discharge: no Medical Emergencies . Who to Call and When: Medical Emergencies: If at any time you feel your situation is an emergency, please call 911 immediately. . Non-Emergent Contact Non-Emergency issues call your: Primary Care Provider, Hospital Doctor . . "Provider Documentation" section prepared by Bonifacio Esteban. .. Additional Copies To Maria Alejandra Gonzalez D.O.
== END 2018-03-07 12:40 | disposition home or self-care (01) | DRG 305 ==
LOC: EDBD 10:39 → C.EDB 10:41 → C.2E 16:24 → EDBEDREQ 16:51 → ENRESERV 16:58 → EDBEDREQ 03-05 13:52 → ENRESERV 03-05 14:03 → C.MS4W 03-05 14:54
PROVIDERS: ADMIT Hospitalist; ATTEND Hospitalist
DX: I16.0 Hypertensive urgency (principal); I82.512 Chronic embolism and thrombosis of left femoral vein; I82.513 Chronic embolism and thrombosis of femoral vein, bilateral; K59.00 Constipation, unspecified; R07.89 Other chest pain; F25.9 Schizoaffective disorder, unspecified; I10 Essential (primary) hypertension; J44.9 Chronic obstructive pulmonary disease, unspecified; F17.210 Nicotine dependence, cigarettes, uncomplicated; Z51.81 Encounter for therapeutic drug level monitoring; Z79.899 Other long term (current) drug therapy; Z91.128 Patient's intentional underdosing of medication regimen for other reason; Z91.19 Patient's noncompliance with other medical treatment and regimen; Z95.828 Presence of other vascular implants and grafts; Z59.0 Homelessness; Z88.8 Allergy status to other drugs, medicaments and biological substances; Z88.5 Allergy status to narcotic agent; Z88.0 Allergy status to penicillin; Z88.6 Allergy status to analgesic agent; Z88.1 Allergy status to other antibiotic agents; Z80.0 Family history of malignant neoplasm of digestive organs; Z83.3 Family history of diabetes mellitus; Z82.3 Family history of stroke; Z81.8 Family history of other mental and behavioral disorders; Z83.49 Family history of other endocrine, nutritional and metabolic diseases

== ENCOUNTER 2018-03-20 16:38 | Emergency (ER) | payer OTHER ==
[~2018-03-20] VITALS: Ht 157.5 cm; Wt 58.8 kg
[~2018-03-20 16:38] MED LIST changes: +CALC500C3 PO; -CALC500C50 PO; -CLON0.3T PO; -METO50TA16 PO; -[UNRECOGNIZED DRUG - OTHER] TOP
[2018-03-20 16:47] VITALS: TEMP 36.8; Ht 157.5 cm; Wt 58.8 kg
[2018-03-20] MEDS ORDERED: METOPROLOL TARTRATE 50 MG TAB PO STA (17:49)
[2018-03-20 18:05] LABS: HEMATOCRIT 39.2 % (37-47); HEMOGLOBIN 13.4 g/dL (12.0-16.0); MEAN CELL VOLUME 91.8 fL (80-100); MEAN CORPUSCULAR HEMOGLOBIN 31.4 pg (25-34); MEAN CORPUSCULAR HGB CONC 34.2 g/dl (32-36); MEAN PLATELET VOLUME 9.1 fL (7.4-10.4); PLATELET COUNT 399 K/uL (130-400); RED CELL DISTRIBUTION WIDTH CV 14.1 % (11.5-14.5); RED CELL DISTRIBUTION WIDTH SD 47.5 fL (36.4-46.3); WHITE BLOOD COUNT 9.83 K/uL (4.8-10.8)
[2018-03-20 18:37] LABS: ALBUMIN 3.8 gm/dl (3.4-5.0); ALKALINE PHOSPHATASE 89 U/L (45-117); ALT/SGPT 27 U/L (12-78); AST/SGOT 20 U/L (15-37); BLOOD UREA NITROGEN 16 mg/dl (7-18); CARBON DIOXIDE 23 mmol/L (21-32); CREATININE 0.81 mg/dl (0.60-1.20); GLUCOSE 99 mg/dl (70-99); SODIUM 136 mmol/L (136-145); TOTAL PROTEIN 7.4 gm/dl (6.4-8.2)
[2018-03-20 19:22] VITALS: BP 156/78; PULSE 82; O2SAT 98
--- NOTE | 2018-03-20 22:32 | EMERGENCY ROOM VISIT NOTE ---
History Report prepared by Gosia: Philip Mack Under the Supervision of: Dr. Armaan Patel M.D. First contact with patient: 17:16 Chief Complaint: MENTAL HEALTH EVALUATION Stated Complaint: MENTAL HEALTH ISSUSES History of Present Illness History is limited due to lack of cooperation. Patient often does not answer questions and is tangential. The patient is a 67 year old female who presents to the Emergency Room. The Office of Aging worker reports that the patient is homeless and was evicted from her trailer last month. She reports that the Office of Aging has been offering the patient several living arrangements, all of which have been refused by the patient. She states that the patient was at a convenience store today in [place], when police were called due to the patient reportedly being disruptive to some people there. She states that the patient was willing to come for a mental health evaluation. She reports that the patient does not have a primary psychiatric diagnosis. She states that the patient is at her baseline, and does not want to hurt herself or anybody else. She notes that the patient stated that she receives Ativan from a doctor in [place], and denies opioid addiction. The patient states that she was "not happy" to be there at the convenience store today. She states that she is not happy "everywhere, everyday, week after week" and that she receives "comments from all over the place." She states that she is a "wreck" and feels some fear. She reports that she has constipation, problems with blood pressure for which she takes medication, and feels "drunk and delirious" because she is unable to sleep. She states that the heat makes it hard to breathe, and notes that every medical issue she has is currently "magnified 10 times." She also notes that she is unable to eat the "right food" due to not having a kitchen. She reports that she lives "everywhere and anywhere." The patient denies suicidal or homicidal ideation. Source of History: patient, other (Office of Aging worker) History Limited By: poor cooperation Onset: today Quality: other (someone called police on the patient today) Note: constipation Review of Systems ROS is limited due to lack of cooperation. Past Medical & Surgical Medical Problems: (1) Abdominal pain (2) Anxiety (3) Chronic pelvic pain of female (4) COPD (chronic obstructive pulmonary disease) (5) DVT (deep venous thrombosis) (6) DVT (deep venous thrombosis) (7) H/O drug abuse (8) Hypertension (9) IBS (10) Posttraumatic stress disorder (11) Schizoaffective disorder (12) Suicide attempt (13) Tobacco abuse Surgical Problems: (1) Cystoscopy (2) h/o inferior vena cava filter placement (3) Tonsillectomy Social History Problems: (1) IVC filter Family History Cancer MOTHER (Colon ) Diabetes mellitus FATHER Endocrine disorder SISTER (Thyroid) FH: mental illness SISTER Heart disease FATHER MOTHER Stroke Social History Smoking Status: Current Every Day Smoker Alcohol Use: none Drug Use: none Marital Status: single Housing Status: other Occupation Status: unemployed Current/Historical Medications Scheduled Calcium Carbonate (Tums), 500 MG PO DAILY Scheduled PRN Aspirin (Aspirin Ec), 81 MG SL DAILY PRN for BLOOD THINNING AFFECT Allergies Coded Allergies: Atropine (Verified Allergy, Severe, castillo, hard time breathing, 03/03/18) Clonidine (Unverified Allergy, Severe, RAISES B.P., ANXIOUSNESS, 03/03/18) Diphenhydramine (Verified Allergy, Severe, "I ALMOST .", 03/03/18) Hyoscyamine (Verified Allergy, Severe, castillo, hard time breathing, 03/03/18) Labetalol (Verified Allergy, Severe, selling,loss of taste,itch, rash, ) Phenobarbital (Verified Allergy, Severe, castillo, hard time breathing, 03/03/18) Prednisone (Verified Allergy, Severe, Edema face,lips and tongue., 03/03/18 ) Meticorten Scopolamine (Verified Allergy, Severe, castillo, hard time breathing, 03/03/18) Enoxaparin (Verified Allergy, Intermediate, RASH, 03/03/18) Levofloxacin (Verified Allergy, Intermediate, ARM TURNED "FIREY RED" WHEN INFUSED, CLEARED IN A FEW HOURS, 03/03/18) Tramadol (Verified Allergy, Intermediate, blisters all over, 03/03/18) Warfarin (Verified Allergy, Intermediate, rash, 03/03/18) Chlorpromazine (Verified Allergy, Mild, TOLERATING PROLIXIN AT HOME , 03/03/18) Penicillins (Verified Allergy, Mild, 03/03/18) Coumarin (Verified Allergy, Unknown, UNKNOWN, 03/03/18) Naproxen (Verified Allergy, Unknown, Unknown, 03/03/18) Morphine (Verified Adverse Reaction, Severe, SHOCK;TOLERATES DEMEROL, 03/03) ABLE TO TAKE DEMEROL WITHOUT DIFFICULTY Aspirin (Verified Adverse Reaction, Intermediate, BLEEDING, 03/03/18) Codeine (Verified Adverse Reaction, Intermediate, BP DROPS AND PASSES OUT, 03/03/18) Replaces CODEINE PHOSP Dicyclomine (Verified Adverse Reaction, Intermediate, GI SYMPTOMS, 03/03/18 ) Ibuprofen (Verified Adverse Reaction, Intermediate, BLEEDING, 03/03/18) Amitriptyline (Verified Adverse Reaction, Mild, Nausea/vomitimg, 03/03/18) Lisinopril (Verified Adverse Reaction, Mild, COUGH, 03/03/18) Nitrofurantoin (Verified Adverse Reaction, Unknown, hallucinating, 03/03/18 ) Physical Exam Vital Signs Date Time Temp Pulse Resp B/P (MAP) Pulse Ox O2 Delivery O2 Flow Rate FiO2 03/20/18 19:22 82 16 156/78 98 Room Air 03/20/18 16:47 36.8 101 18 180/83 98 Room Air Physical Exam Constitutional: Vital signs reviewed. Eyes: Pupils are equal round reactive to light. Conjunctiva are noninjected. ENT: Pharynx is clear without erythema or exudate. Mucous membranes are moist. Neck supple without meningeal signs. Respiratory: Clear to auscultation bilaterally. Breath sounds are equal bilaterally. Cardiovascular: Regular rate and rhythm. No rubs or gallops. GI: Soft, nondistended and nontender. Bowel sounds are present. Musculoskeletal: No peripheral edema. No lower extremity tenderness. Integumentary: No cyanosis. Neurological: The patient is awake and alert. No focal deficits. Psychiatric: Very anxious-appearing. Medical Decision & Procedures Laboratory Results 03/20/18 17:43 03/20/18 17:43 Test 03/20/18 17:43 03/20/18 17:53 Red Blood Count 4.27 M/uL (4.2-5.4) Mean Corpuscular Volume 91.8 fL (80-100) Mean Corpuscular Hemoglobin 31.4 pg (25-34) Mean Corpuscular Hemoglobin Concent 34.2 g/dl (32-36) RDW Standard Deviation 47.5 fL (36.4-46.3) RDW Coefficient of Variation 14.1 % (11.5-14.5) Mean Platelet Volume 9.1 fL (7.4-10.4) Anion Gap 7.0 mmol/L (3-11) Est Creatinine Clear Calc Drug Dose 54.8 ml/min Estimated GFR () 88.3 Estimated GFR (Non- 76.2 BUN/Creatinine Ratio 19.7 (10-20) Calcium Level 9.0 mg/dl (8.5-10.1) Total Bilirubin 0.3 mg/dl (0.2-1) Direct Bilirubin < 0.1 mg/dl (0-0.2) Aspartate Amino Transf (AST/SGOT) 20 U/L (15-37) Alanine Aminotransferase (ALT/SGPT) 27 U/L (12-78) Alkaline Phosphatase 89 U/L (45-117) Total Protein 7.4 gm/dl (6.4-8.2) Albumin 3.8 gm/dl (3.4-5.0) Thyroid Stimulating Hormone (TSH) 0.664 uIu/ml (0.300-4.500) Salicylates Level 3.3 mg/dl (2.8-20) Acetaminophen Level < 2 ug/ml (10-30) Ethyl Alcohol mg/dL < 3.0 mg/dl (0-3) Urine Color YELLOW Urine Appearance CLEAR (CLEAR) Urine pH 6.5 (4.5-7.5) Urine Specific [place] 1.014 (1.000-1.030) Urine Protein NEG (NEG) Urine Glucose (UA) NEG (NEG) Urine Ketones NEG (NEG) Urine Occult Blood NEG (NEG) Urine Nitrite NEG (NEG) Urine Bilirubin NEG (NEG) Urine Urobilinogen NEG (NEG) Urine Leukocyte Esterase SMALL (NEG) Urine WBC (Auto) 5-10 /hpf (0-5) Urine RBC (Auto) 0-4 /hpf (0-4) Urine Hyaline Casts (Auto) 0 /lpf (0-5) Urine Epithelial Cells (Auto) >30 /lpf (0-5) Urine Bacteria (Auto) NEG (NEG) Urine Opiates Screen NEG (NEG) Urine Methadone, Qualitative NEG (NEG) Urine Barbiturates NEG (NEG) Urine Phencyclidine (PCP) Level NEG (NEG) Ur Amphetamine/Methamphetamine NEG (NEG) MDMA (Ecstasy) Screen NEG (NEG) Urine Benzodiazepines Screen NEG (NEG) Urine Cocaine Metabolite NEG (NEG) Urine Marijuana (THC) NEG (NEG) Laboratory results as reviewed by me. Medications Administered Medications (Trade) Dose Ordered Sig/Thiago Route Start Time Stop Time Status Last Admin Dose Admin Metoprolol Tartrate (Lopressor Tab) 25 mg NOW STAT PO 03/20/18 17:49 03/20/18 17:51 DC 03/20/18 18:07 25 MG ED Course 172: The patient was evaluated in room A5. A complete history and physical exam was performed. 1748: Ordered Lopressor 25 mg PO 2131: The patient does not meet criteria for inpatient psychiatric care. I attempted to contact the office of [facility], but they are currently unavailable. They recommended earlier that she be discharged if she was not able to be admitted, and stated that they would follow up with her tomorrow. The onsite case manager is currently making arrangements. 2221: The patient is refusing a skilled nursing and wants to just leave. Medical Decision This is a 67-year-old female brought here for mental health evaluation I did perform a limited focused review of portions of the patient's old chart on the electronic medical record. The patient was admitted in February for chest pain and hypertensive urgency. Myocardial infarction and pulmonary embolism were ruled out. I did evaluate the patient as noted above. I did obtain history from the patient as well as the employee from [employer]. The patient apparently was causing a disturbance at a convenience store. The [employer] has worked with this patient in the past and she has refused being placed in a homeless skilled nursing. She prefers to sleep in the street. She is not an immediate danger to herself or others. Her blood pressure is elevated but the patient is anxious. I did give her dose of her Lopressor as I was not sure she actually took hers today. Her blood pressure did come down. She has no specific complaints currently. She denies any homicidal or suicidal ideation. I did order and personally review the patient's urine analysis as described above. I did order and review the patient's blood work as noted in the electronic medical record. The patient was medically cleared. The mental health onsite case manager did evaluate the patient. The patient does not meet any criteria for inpatient mental health care. She was offered placement in a homeless skilled nursing but she declined. She stated that she just wanted to be discharged. There is no criteria to hold her here against her well and so she was discharged. Medication Reconcilliation Current Medication List: was personally reviewed by me Blood Pressure Screening Patient's blood pressure: Elevated blood pressure Blood pressure disposition: Referred to PCP Impression Primary Impression: Anxiety Scribe Attestation The scribe's documentation has been prepared under my direct and personally reviewed by me in its entirety. I confirm that the note above accurately reflects all work, treatment, procedures, and medical decision making performed by me. Departure Information Dispostion Home / Self-Care Referrals Maria Alejandra Gonzalez D.O. (PCP) Forms HOME CARE DOCUMENTATION FORM, IMPORTANT VISIT INFORMATION Patient Instructions My [facility] Additional Instructions You have been examined and treated today on an emergency basis only. This is not a substitute for, or an effort to provide, complete comprehensive medical care. It is impossible to recognize and treat all injuries or illnesses in a single emergency department visit. It is therefore important that you follow up closely with your physician. Call as soon as possible for an appointment. Return for worsening symptoms or if you develop thoughts of hurting yourself or others or any other concerning symptoms.
== END 2018-03-20 22:20 | disposition home or self-care (01) ==
LOC: C.EDB 16:39 → C.EDA 22:20
DX: F41.9 Anxiety disorder, unspecified (principal); Z59.0 Homelessness; I10 Essential (primary) hypertension; J44.9 Chronic obstructive pulmonary disease, unspecified; F17.200 Nicotine dependence, unspecified, uncomplicated; Z88.8 Allergy status to other drugs, medicaments and biological substances; Z88.0 Allergy status to penicillin; Z88.6 Allergy status to analgesic agent

== ENCOUNTER 2019-01-14 19:55 | Observation (INO) ==
[2019-01-14] MEDS ORDERED: LORazepam 1 MG/2 ML VIAL IV STA (20:16)
[2019-01-14] MEDS ORDERED: SODIUM CHLORIDE 0.9% 500 ML IV SCH (20:30)
--- NOTE | 2019-01-14 20:36 | XRay Report ---
XR chest 1V portable CLINICAL HISTORY: 68 years-old Female presenting with sob. TECHNIQUE: Portable upright AP view of the chest was obtained. COMPARISON: 12/19/2018. FINDINGS: Atherosclerosis of the aortic arch. Cardiac silhouette normal in size. No focal opacity. No large eff usion or pneumothorax. Exaggerated thoracic kyphosis. Osteopenia suspected. IVC filter noted. IMPRESSION: 1. No acute cardiopulmonary disease. Electronically signed by: Graham Atkins M.D. 01/14/2019 8:34 PM
[2019-01-14 20:56] LABS: Basophils # (auto) 0.06 K/uL (0-0.2); Basophils % (auto) 0.7 %; Eosinophils # (auto) 0.25 K/uL (0-0.5); Eosinophils % (auto) 2.8 %; Hematocrit (blood only) 44.1 % (37-47); Hemoglobin 16.1 g/dL (12.0-16.0); Immature Granulocytes # (auto) 0.02 K/uL (0.00-0.02); Immature Granulocytes % (auto) 0.2 %; Lymphocytes # (auto) 3.26 K/uL (1.2-3.4); Lymphocytes % (auto) 36.8 %; Mean Corpuscular Hgb Conc 36.5 g/dL (32-36); Mean Corpuscular Volume 89.1 fL (80-100); Mean Platelet Volume 9.2 fL (7.4-10.4); Monocytes # (auto) 0.68 K/uL (0.11-0.59); Monocytes % (auto) 7.7 %; Neutrophils # (auto) 4.59 K/uL (1.4-6.5); Neutrophils % (auto) 51.8 %; Platelet Count 371 K/uL (130-400); RDW Coefficient of Variation 13.3 % (11.5-14.5); RDW Standard Deviation 43.8 fL (36.4-46.3); Red Blood Count 4.95 M/uL (4.2-5.4); White Blood Count 8.86 K/uL (4.8-10.8)
[2019-01-14 21:21] LABS: Albumin Globulin Ratio 1.1 (0.9-2); Albumin Level 4.3 gm/dl (3.4-5.0); BUN Creatinine Ratio 9.6 (10-20); Bilirubin,Total 0.4 mg/dl (0.2-1); Calcium 10.2 mg/dl (8.5-10.1); Creatinine Clr Calc Pharmacy 49.2 ml/min; Est GFR (African American) 78.3; Est GFR (Non-African American) 67.5; Globulin 3.9 gm/dl (2.5-4.0); Potassium 3.8 mmol/L (3.5-5.1); Total Protein 8.2 gm/dl (6.4-8.2)
--- NOTE | 2019-01-14 21:52 | CT Scan Report ---
CT abd pelvis wo con CLINICAL HISTORY: 68 years-old Female presenting with right sided pain eval for stone/appe. TECHNIQUE: Multidetector CT of the abdomen and pelvis was performed without the use of intravenous co ntrast. IV contrast: None. One or more dose lowering techniques were used consistent with the princip les of ALARA (as low as reasonably achievable), including automatic exposure control, mA or kV adjust ment to individual patient size, and/or use of iterative reconstruction. COMPARISON: 03/03/2018. CT DOSE (mGy.cm): The estimated cumulative dose is 240.08 mGy.cm. FINDINGS: [employer] topogram: [address] Lung bases: Mitral annular calcification. Normal heart size. No pericardial or pleural effusion. Mini mal dependent changes likely atelectasis. Pulmonary cyst or emphysema noted in the left lower lobe. Liver: Normal morphology. Normal density. Biliary: No gross biliary ductal dilatation allowing for noncontrast technique. Normal gallbladder. Pancreas: Normal noncontrast appearance. Spleen: Normal noncontrast appearance. Adrenal glands: Normal noncontrast appearance. Kidneys and ureters: Normal noncontrast appearance. No nephrolithiasis. Extrarenal pelvis on the left . No hydronephrosis. Normal ureters. Bladder: Normal. Pelvic organs: Normal noncontrast appearance. Bowel: Normal appendix. No bowel obstruction. Trace hiatal hernia. Peritoneal cavity: No free fluid or intraperitoneal gas. Lymph nodes: No gross lymphadenopathy allowing for noncontrast technique. Vasculature: Atherosclerosis of the normal caliber abdominal aorta. IVC filter noted at the level and above the renal veins as well as in the left gonadal vein. Abdominal wall: Few varices noted in the lower abdomen. Diastases of the abdominis rectus. Musculoskeletal: Old left posterior rib fracture. IMPRESSION: 1. Allowing for noncontrast technique, no acute intra-abdominal pathology. 2. Two IVC filters in place, one of which is within the left gonadal vein. This is unchanged from pr ior. Electronically signed by: Graham Atkins M.D. 01/14/2019 9:50 PM
[2019-01-14 22:34] LABS: Appearance Urine Clear (Clear); Bilirubin Urine Negative (Negative); Blood Urine Negative (Negative); Color Urine Yellow; Glucose Urine UA Negative (Negative); Ketones Urine Negative (Negative); Leukocyte Esterase Urine Negative (Negative); Nitrite Urine Negative (Negative); Protein Urine Negative (Negative); Urobilinogen Urine Negative (Negative)
[2019-01-15] MEDS ORDERED: POLYETHYLENE (MIRALAX) 17 GM PACK PO PRN (00:06)
[2019-01-15] MEDS ORDERED: NITROGLYCERIN SL 0.4 MG/TAB TAB SL PRN (00:06)
[2019-01-15] MEDS ORDERED: ONDANSETRON INJ 2 MG/ML 2 ML VIAL IV PRN (00:06)
[2019-01-15] MEDS ORDERED: ACETAMINOPHEN 325 MG TAB PO PRN (00:06)
[2019-01-15] MEDS ORDERED: LORazepam 1 MG TAB PO PRN (00:06)
--- NOTE | 2019-01-15 01:01 | Emergency Department Note ---
Entered by Manolo Manning acting as a scribe for Armaan Patel MD History of Present Illness General Chief complaint: Abdominal Pain Stated complaint: R SIDE AB & R UPPER LEG PAIN Source: patient History of Present Illness Onset (ago): month(s) 5 Location: abdomen (right-sided) Radiation: extremity (top of right leg) Pain Consistency: + intermittent Quality: + sharp and + other (hot burning) Associated symptoms: + other (Positive for vomiting and heart palpitations. ) The patient is a 68 year old female who presents to the emergency department with complaints of intermittent right-sided abdominal pain for 5 months ago. The patient states that she has been having intermittent right-sided abdominal pain for the last 7-8 years. She notes that her pain has been intermittent and worse than usual for the last five months. She reports that her pain can be sharp but occasionally feels like a hot burning sensation. The patient states that her pain radiates to the top of her right leg. She also complains of vomiting and heart palpitations. She notes that her vomiting is a chronic issue. She reports that she has a history of blood clots in her left leg but she is not on any strong blood thinners. She notes that she takes aspirin. She does complain of chest tightness and shortness of breath. Home Medications Home Medications Medication Instructions Recorded Confirmed Type metoprolol tartrate [Lopressor] 50 mg PO BID 06/19/18 01/14/19 History aspirin [Aspirin Childrens] 81 mg PO DAILY 12/21/18 01/14/19 History Molasses 1 dose PO DAILY PRN 01/14/19 01/14/19 History Allergies Allergy/AdvReac Type Severity Reaction Status Date / Time atropine Allergy Severe castillo, hard Verified 01/14/19 22:01 time breathing clonidine Allergy Severe RAISES Unverified 01/14/19 22:01 B.P., ANXIOUSNESS diphenhydramine Allergy Severe "I ALMOST Verified 01/14/19 22:01 ." hyoscyamine Allergy Severe castillo, hard Verified 01/14/19 22:01 time breathing labetalol Allergy Severe selling,loss Verified 01/14/19 22:01 of taste,itch, rash phenobarbital Allergy Severe castillo, hard Verified 01/14/19 22:01 time breathing prednisone Allergy Severe Edema Verified 01/14/19 22:01 face,lips and tongue. scopolamine Allergy Severe castillo, hard Verified 01/14/19 22:01 time breathing enoxaparin Allergy Intermediate RASH Verified 01/14/19 22:01 levofloxacin Allergy Intermediate ARM TURNED Verified 01/14/19 22:01 "FIREY RED" WHEN INFUSED, CLEARED IN A FEW HOURS tramadol Allergy Intermediate blisters Verified 01/14/19 22:01 all over warfarin Allergy Intermediate rash Verified 01/14/19 22:01 chlorpromazine Allergy Mild TOLERATING Verified 01/14/19 22:01 PROLIXIN AT HOME 01/15/08 Penicillins Allergy Mild Unknown Verified 01/14/19 22:01 coumarin Allergy Unknown UNKNOWN Verified 12/22/18 12:50 naproxen Allergy Unknown Unknown Verified 12/22/18 12:50 morphine AdvReac Severe SHOCK;TOLERATES Verified 12/22/18 12:50 DEMEROL aspirin AdvReac Intermediate BLEEDING Verified 12/22/18 12:50 codeine AdvReac Intermediate BP DROPS Verified 12/22/18 12:50 AND PASSES OUT dicyclomine AdvReac Intermediate GI SYMPTOMS Verified 12/22/18 12:50 ibuprofen AdvReac Intermediate BLEEDING Verified 12/22/18 12:50 amitriptyline AdvReac Mild Nausea/vomi Verified 12/22/18 12:50 timg lisinopril AdvReac Mild COUGH Verified 12/22/18 12:50 nitrofurantoin AdvReac Unknown hallucinati Verified 12/22/18 12:50 ng Past Med/Surg History Medical History Posttraumatic stress disorder (Chronic 01/14/13) COPD (chronic obstructive pulmonary disease) (Chronic) Hypertension (Chronic) Schizoaffective disorder (Chronic 01/22/12) Tobacco abuse (Chronic) H/O drug abuse (Chronic) Hypertensive urgency (Resolved) High blood pressure (Chronic) DVT (deep venous thrombosis) Family History Other Family history non-contributory Social History Preferred Language: Sami Communication Ability: Effective Visual Impairment: No Limitations Hearing Ability: Normal marital status: Single Current Living Situation: Alone Current Living Situation Comment: living in homeless shelters since February 2018 Feels Safe at Home: Yes Smoking Status: Current some day smoker Review of Systems See HPI for pertinent positives & negatives. and A total of 10 systems reviewed and were otherwise negative Physical Exam Vital Signs Vital Signs - 24 hr 01/14/19 20:04 01/14/19 20:31 01/14/19 21:03 Temperature 36.7 C Temperature Source Oral Sepsis Recent Fever Within 48 Hours No Sepsis New/Unexplained Change in Mental Status No Sepsis Action Taken by Nursing No Action Required Pulse Rate 93 H 80 71 Pulse Rate [Apical] Pulse Rate from SpO2 Sensor 80 71 Respiratory Rate 18 24 34 H Respiratory Effort / Characteristics Non-Labored Spontaneous Respiratory Depth Normal Respiratory Pattern Regular Blood Pressure 205/135 H 196/124 H 192/85 H Blood Pressure [Right Arm] Blood Pressure Mean 158 148 120 Blood Pressure Mean [Right Arm] Pulse Oximetry 97 97 98 Oxygen Delivery Method Room Air Room Air Room Air 01/14/19 22:12 01/14/19 22:32 01/14/19 23:01 Temperature Temperature Source Sepsis Recent Fever Within 48 Hours Sepsis New/Unexplained Change in Mental Status Sepsis Action Taken by Nursing Pulse Rate 79 71 Pulse Rate [Apical] 76 Pulse Rate from SpO2 Sensor 79 Respiratory Rate 19 18 20 Respiratory Effort / Characteristics Respiratory Depth Respiratory Pattern Blood Pressure 157/87 H 148/90 H Blood Pressure [Right Arm] 127/80 Blood Pressure Mean 110 109 Blood Pressure Mean [Right Arm] 95 Pulse Oximetry 94 99 Oxygen Delivery Method Room Air Room Air 01/14/19 23:31 Temperature Temperature Source Sepsis Recent Fever Within 48 Hours Sepsis New/Unexplained Change in Mental Status Sepsis Action Taken by Nursing Pulse Rate 70 Pulse Rate [Apical] Pulse Rate from SpO2 Sensor Respiratory Rate 12 Respiratory Effort / Characteristics Respiratory Depth Respiratory Pattern Blood Pressure 142/65 H Blood Pressure [Right Arm] Blood Pressure Mean 90 Blood Pressure Mean [Right Arm] Pulse Oximetry 97 Oxygen Delivery Method Constitutional: Vital signs reviewed. Hyperventilating. Eyes: Pupils are equal round reactive to light. Conjunctiva are noninjected. ENT: Pharynx is clear without erythema or exudate. Mucous membranes are moist. Neck supple without meningeal signs. Respiratory: Clear to auscultation bilaterally. Breath sounds are equal bilaterally. Cardiovascular: Regular rate and rhythm. No rubs or gallops. GI: Soft, nondistended. Tenderness in RLQ, no guarding. Bowel sounds are present. Musculoskeletal: No peripheral edema. No lower extremity tenderness. Integumentary: No cyanosis. Neurological: The patient is awake and alert. No focal deficits. Psychiatric: Extremely anxious. Course 2001: The patient was evaluated in room A3. A complete history and physical exam was performed. 2207: I reevaluated and updated the patient. She is feeling better. Her heart is no longer racing and she is not SOB. 2216: I rechecked the patient. Her SOB, palpitations, and chest tightness are gone. She is now normotensive. She states that she has been getting chest tightness and SOB with palpitations for the past 2 weeks with minimal exertion. She notes that she has been getting symptoms even when she is washing dishes. She has a strong family history and a prior smoking history. 2218: Upon reevaluation, the patient is stable. I discussed the findings and the treatment plan with the patient. She expresses agreement and understanding. I spoke with Dr. Delvalle of the [facility]. The patient will be evaluated for further management. Consultations Consultation #1: I reviewed the patient's case with [facility] He will evaluate the patient for further management. Time: 22:19 Administered Medications Discontinued Medications Lorazepam (Ativan) 1 mg in 2 mls @ 2 mls/min IV NOW STA Stop: 01/14/19 20:17 Last Admin: 01/14/19 21:23 Dose: 2 mls/min Documented by: [id number] Sodium Chloride (Nss) 500 mls @ 999 mls/hr IV .Q31M GENARO Stop: 01/14/19 21:00 Last Infusion: 01/14/19 23:45 Dose: 0 mls/hr Documented by: [id number] Admin: 01/14/19 21:20 Dose: 999 mls/hr Documented by: [id number] Medical Decision Making Differential Diagnosis Differential diagnosis includes: kidney stone, appendicitis, panic attack, anxiety, and PE. Medical Records Attestation: I reviewed the patient's medical records. I did perform a limited focused review of portions of the patient's old chart on the electronic medical record. The patient had 3 emergency department visits in Dec, 2018, for high blood pressure and chest pain. Her prior CTA shows an IVC filter. Home Medications Current Medication List: was personally reviewed by me Laboratory Data Attestation: I reviewed the patient's lab results. Result diagrams: 01/14/19 20:45 01/14/19 20:45 Lab Results 01/14/19 01/14/19 01/14/19 Range/Units 20:45 20:45 20:45 WBC 8.86 (4.8-10.8) K/uL RBC 4.95 (4.2-5.4) M/uL Hgb 16.1 H (12.0-16.0) g/dL Hct 44.1 (37-47) % MCV 89.1 (80-100) fL MCH 32.5 (25-34) pg MCHC 36.5 H (32-36) g/dL RDW Std Deviation 43.8 (36.4-46.3) fL RDW Coeff of Blas 13.3 (11.5-14.5) % Plt Count 371 (130-400) K/uL MPV 9.2 (7.4-10.4) fL Immature Gran % (Auto) 0.2 % Neut % (Auto) 51.8 % Lymph % (Auto) 36.8 % [place] % (Auto) 7.7 % Eos % (Auto) 2.8 % Baso % (Auto) 0.7 % Immature Gran # (Auto) 0.02 (0.00-0.02) K/uL Neut # (Auto) 4.59 (1.4-6.5) K/uL Lymph # (Auto) 3.26 (1.2-3.4) K/uL [place] # (Auto) 0.68 H (0.11-0.59) K/uL Eos # (Auto) 0.25 (0-0.5) K/uL Baso # (Auto) 0.06 (0-0.2) K/uL Sodium 138 (136-145) mmol/L Potassium 3.8 (3.5-5.1) mmol/L Chloride 106 (98-107) mmol/L Carbon Dioxide 23 (21-32) mmol/L Anion Gap 10.0 (3-11) BUN 9 (7-18) mg/dl Creatinine 0.89 (0.6-1.2) mg/dl Est Cr Clr Drug Dosing 49.2 ml/min Est GFR ( Amer) 78.3 Est GFR (Non-Af Amer) 67.5 BUN/Creatinine Ratio 9.6 L (10-20) Glucose 87 (70-99) mg/dl Calcium 10.2 H (8.5-10.1) mg/dl Total Bilirubin 0.4 (0.2-1) mg/dl AST 18 (15-37) U/L ALT 23 (12-78) U/L Alkaline Phosphatase 96 (45-117) U/L Troponin I < 0.015 (0-0.045) ng/ml Total Protein 8.2 (6.4-8.2) gm/dl Albumin 4.3 (3.4-5.0) gm/dl Globulin 3.9 (2.5-4.0) gm/dl Albumin/Globulin Ratio 1.1 (0.9-2) Lipase 408 H (73-393) U/L Specimen Hemolysis Urine Color Urine Appearance (Clear) Urine pH (4.5-7.5) Ur Specific [place] (1.000-1.030) Urine Protein (Negative) Urine Glucose (UA) (Negative) Urine Ketones (Negative) Urine Blood (Negative) Urine Nitrite (Negative) Urine Bilirubin (Negative) Urine Urobilinogen (Negative) Ur Leukocyte Esterase (Negative) 01/14/19 Range/Units 22:25 WBC (4.8-10.8) K/uL RBC (4.2-5.4) M/uL Hgb (12.0-16.0) g/dL Hct (37-47) % MCV (80-100) fL MCH (25-34) pg MCHC (32-36) g/dL RDW Std Deviation (36.4-46.3) fL RDW Coeff of Blas (11.5-14.5) % Plt Count (130-400) K/uL MPV (7.4-10.4) fL Immature Gran % (Auto) % Neut % (Auto) % Lymph % (Auto) % [place] % (Auto) % Eos % (Auto) % Baso % (Auto) % Immature Gran # (Auto) (0.00-0.02) K/uL Neut # (Auto) (1.4-6.5) K/uL Lymph # (Auto) (1.2-3.4) K/uL [place] # (Auto) (0.11-0.59) K/uL Eos # (Auto) (0-0.5) K/uL Baso # (Auto) (0-0.2) K/uL Sodium (136-145) mmol/L Potassium (3.5-5.1) mmol/L Chloride (98-107) mmol/L Carbon Dioxide (21-32) mmol/L Anion Gap (3-11) BUN (7-18) mg/dl Creatinine (0.6-1.2) mg/dl Est Cr Clr Drug Dosing ml/min Est GFR ( Amer) Est GFR (Non-Af Amer) BUN/Creatinine Ratio (10-20) Glucose (70-99) mg/dl Calcium (8.5-10.1) mg/dl Total Bilirubin (0.2-1) mg/dl AST (15-37) U/L ALT (12-78) U/L Alkaline Phosphatase (45-117) U/L Troponin I (0-0.045) ng/ml Total Protein (6.4-8.2) gm/dl Albumin (3.4-5.0) gm/dl Globulin (2.5-4.0) gm/dl Albumin/Globulin Ratio (0.9-2) Lipase (73-393) U/L Specimen Hemolysis Urine Color Yellow Urine Appearance Clear (Clear) Urine pH 7.0 (4.5-7.5) Ur Specific [place] 1.010 (1.000-1.030) Urine Protein Negative (Negative) Urine Glucose (UA) Negative (Negative) Urine Ketones Negative (Negative) Urine Blood Negative (Negative) Urine Nitrite Negative (Negative) Urine Bilirubin Negative (Negative) Urine Urobilinogen Negative (Negative) Ur Leukocyte Esterase Negative (Negative) Imaging Data Radiologist's Impression: Radiology results as stated below per my review and the radiologist's interpretation: XR chest 1V portable CLINICAL HISTORY: 68 years-old Female presenting with sob. TECHNIQUE: Portable upright AP view of the chest was obtained. COMPARISON: 12/19/2018. FINDINGS: Atherosclerosis of the aortic arch. Cardiac silhouette normal in size. No focal opacity. No large effusion or pneumothorax. Exaggerated thoracic kyphosis. Osteopenia suspected. IVC filter noted. IMPRESSION: 1. No acute cardiopulmonary disease. Electronically signed by: Graham Atkins M.D. 01/14/2019 8:[address] abd pelvis wo con CLINICAL HISTORY: 68 years-old Female presenting with right sided pain eval for stone/appe. TECHNIQUE: Multidetector CT of the abdomen and pelvis was performed without the use of intravenous contrast. IV contrast: None. One or more dose lowering fany hniques were used consistent with the principles of ALARA (as low as reasonably achievable), including automatic exposure control, mA or kV adjustment to individual patient size, and/or use of iterative reconstruction. COMPARISON: 03/03/2018. CT DOSE (mGy.cm): The estimated cumulative dose is 240.08 mGy.cm. FINDINGS: [employer] topogram: [address] in [address]. Lung bases: Mitral annular calcification. Normal heart size. No pericardial or pleural effusion. Minimal dependent changes likely atelectasis. Pulmonary cyst or emphysema noted in the left lower lobe. Liver: Normal morphology. Normal density. Biliary: No gross biliary ductal dilatation allowing for noncontrast technique. Normal gallbladder. Pancreas: Normal noncontrast appearance. Spleen: Normal noncontrast appearance. Adrenal glands: Normal noncontrast appearance. Kidneys and ureters: Normal noncontrast appearance. No nephrolithiasis. Extrarenal pelvis on the left. No hydronephrosis. Normal ureters. Bladder: Normal. Pelvic organs: Normal noncontrast appearance. Bowel: Normal appendix. No bowel obstruction. Trace hiatal hernia. Peritoneal cavity: No free fluid or intraperitoneal gas. Lymph nodes: No gross lymphadenopathy allowing for noncontrast technique. Vasculature: Atherosclerosis of the normal caliber abdominal aorta. IVC filter noted at the level and above the renal veins as well as in the left gonadal vein. Abdominal wall: Few varices noted in the lower abdomen. Diastases of the abdominis rectus. Musculoskeletal: Old left posterior rib fracture. IMPRESSION: 1. Allowing for noncontrast technique, no acute intra-abdominal pathology. 2. Two IVC filters in place, one of which is within the left gonadal vein. This is unchanged from prior. Electronically signed by: Graham Atkins M.D. 01/14/2019 9:50 PM ECG Data Attestation: I personally reviewed and interpreted this ECG as follows: Indication: abdominal pain Rate (beats per minute): 88 Rhythm: normal sinus Findings: + peaked T-waves (in precordial leads); no ST elevation Comparison ECG Date: from (12/22/2018) Change: the following changes noted (Compared to prior, T waves are new.) Additional Comments: EKG #2: Normal sinus, 78, hyperacute T waves are resolved, no ST elevation, no PVCs. Blood Pressure Blood Pressure Findings: Normal blood pressure Blood Pressure Disposition: did not require urgent referral MDM Narrative I did evaluate the patient as noted above. The patient is extremely anxious. She is hyperventilating and complains of shortness of breath with some chest tightness. IV access was established. She is very hypertensive. I did treat her with Ativan IV. The patient was placed on a continuous playground monitor. I did order and personally review the patient's 12-lead EKG as described above. She does appear to have some peaked T waves in the precordial leads which were not present on her previous EKG. I did order and personally reviewed the images of the patient's chest x-ray as described above. There is no evidence of pneumonia. I did order and review the patient's blood work as noted in the electronic medical record. Troponin is negative. Her white count is not elevated. I did order a CT of the abdomen and pelvis. I did review the images myself as well as the radiology report as described above. There is no evidence of acute process. She does have a [place] filter. I did reexamine the patient. Her blood pressure is normal at this time. She states her chest tightness and shortness of breath are improved. She is not currently having any chest tightness. I did repeat a twelve-lead EKG which shows no acute ischemia. The peak T waves seem to have resolved. I did ask her further about her chest discomfort. She stated that over the past 2 weeks she has been having increasing chest discomfort with shortness of breath with very minor exertion such as walking short distances or doing the dishes. She does have a strong family history of cardiac disease as well as a [id number] smoking history. She does state that she no longer smokes. She states she has never had a cardiac stress test. She has a heart score of 4. Given her EKG changes and cardiac risk factors and history of exertional chest pain I did recommend hospitalization for repeat cardiac enzymes and cardiac stress testing. I did discuss the case with the hospitalist and pillowcase sewer. Impression & Plan Chest pain, exertional, Chronic abdominal pain, Anxiety, Abnormal EKG Discharge Plan Visit Data *Final* Discharge Date/Time: 01/14/19 23:46 Chief Complaint: Abdominal Pain Stated Complaint: R SIDE AB & R UPPER LEG PAIN ED Provider: Armaan Patel Discharge Problem: Chest pain, exertional, Chronic abdominal pain, Anxiety, Abnormal EKG Patient Disposition: Admitted As Inpatient Discharge Instructions Interventions: ED Discharge Assessment Last Done: 01/14/19 23:46 The scribe's documentation has been prepared under my direction and personally reviewed by me in its entirety. I confirm that the note above accurately reflects all work, treatment, procedures, and medical decision making performed by me.
--- NOTE | 2019-01-15 03:16 | History and Physical Report ---
DATE OF ADMISSION: 01/14/2019 CHIEF COMPLAINT: Chest pain. HISTORY OF PRESENT ILLNESS: This is a 68-year-old female with past medical history significant for hypertension, irritable bowel syndrome, chronic pain disorder, anxiety state, history of nonadherence to medical treatment, posttraumatic stress disorder, history of bipolar 1 disorder, tobacco use disorder, history of drug dependence abuse, history of suicide attempt by Tylenol overdose, schizoaffective disorder, history of DVTs multiple, status post IVC filter, not on anticoagulation secondary to COUMADIN CAUSING RASH, presents with chest pain. The patient states she is living alone in this apartment since last 5 months. She is getting on and off palpitations with exertion. Today, while doing her dishes, she felt her heart pounding and felt short of breath, weak and tired, which triggered her anxiety and panic attack and got worse. She thought she may have heart attack. Her father of heart attack at age 66. She got worried and she came to the ER. In the ER, 1 dose of IV Ativan was given, which relieved her symptoms. Currently resting comfortably and hemodynamically stable and currently heart rate is stable. She says this is going on for some time, but today got worse. She has had chronic pain, complains of pain in the belly and pain in the back. She has had chronic constipation, chronic headaches. She was feeling nauseous and sweating today when this episode happened. Denies any fever, chills. She has smoked for 50 years, but lately cutting back on smoking. She currently smokes only 1 or 2 cigarettes a day. No family close by. Otherwise, ambulates okay, but complains of getting weaker. Denies any rash, no diarrhea, no blood in the stools. Normal bladder movements. Appetite is not that great. ALLERGIES: COUMADIN, LABETALOL, PREDNISONE, ALEVE, AMITRIPTYLINE, ASPIRIN, DICYCLOMINE, IBUPROFEN, LISINOPRIL, MORPHINE, NORVASC, THORAZINE AND TYLENOL. PAST MEDICAL HISTORY: As mentioned above. PAST SURGICAL HISTORY: Cystoscopy, EGD with biopsy, status post [place] filter, throat surgery. MEDICATIONS: Aspirin 81 mg p.o. daily, Lopressor 50 mg p.o. b.i.d. FAMILY HISTORY: Significant for mother had colon cancer. Father had diabetes, heart disorder. Mother had a stroke. Sister has anxiety. SOCIAL HISTORY: , lives alone. States she smoked 1.5 packs a day for 37years currently cutting back on smoking. No alcohol use currently. No drug use. REVIEW OF SYMPTOMS: As per HPI. Rest of review of systems are negative. PHYSICAL EXAMINATION: GENERAL: The patient is of moderate build, not in acute distress. VITAL SIGNS: Temperature 36.7, pulse 79, respiratory rate 18, blood pressure 157/87, oxygen 99% on room air. HEENT: No pallor, no icterus. Pupils equal, round, and reactive to light. NECK: No JVD, no neck mass, no carotid bruit. CARDIOVASCULAR: S1, S2 heard, regular rate and rhythm, no murmur, no gallop. RESPIRATORY SYSTEM: Normal AP diameter. No accessory muscle use. No wheezing, no crackles. ABDOMEN: Soft, bowel sounds present. Nontender. No distention. CENTRAL NERVOUS SYSTEM: Cranial nerves II-XII grossly intact, nonfocal. EXTREMITIES: No edema, no erythema. LABS: WBC 8.8, hemoglobin 16.1, hematocrit 44.1, platelets 371. Sodium 138, potassium 3.8, chloride 106, bicarbonate 23, BUN 9, creatinine 0.8, serum glucose 87, calcium 10.2, total bilirubin 0.4, AST 18, ALT 23, alkaline phosphatase 96. Troponin I less than 0.015. Lipase 408. Urinalysis negative. Chest x-ray, no acute cardiopulmonary disease. CT of the abdomen and pelvis, no acute abdominal pathology. Two IVC filters in place. EKG: Normal sinus rhythm with rate of 78, no acute ST changes seen, no significant change was found. ASSESSMENT AND PLAN: This is a 68-year-old female who presents with chest pain. 1. Chest pain with tachycardia, shortness of breath happening with minimal activity and she gets anxious and panic attacks, symptoms resolved with IV Ativan in the ER. Because of family history, we will observe in telemetry floor, serial cardiac enzymes, echocardiogram. Keep her n.p.o. after midnight and consult cardiology for further recommendations. Continue home aspirin and Lopressor. 2. History of hypertension. Continue on home Lopressor. 3. History of anxiety. She is currently not taking any medications. We will place on Ativan p.r.n. 4. History of bipolar schizoaffective disorder, currently not on any medication. We will consider psych consult. 5. History of multiple deep venous thrombosis, status post IVC filter. DISPOSITION: Observe in tele floor. Expect discharge home and follow with his family doctor. Level 1 full code. MTDD
[2019-01-15 05:46] LABS: Basophils # (auto) 0.04 K/uL (0-0.2); Basophils % (auto) 0.5 %; Eosinophils # (auto) 0.48 K/uL (0-0.5); Eosinophils % (auto) 5.7 %; Immature Granulocytes # (auto) 0.01 K/uL (0.00-0.02); Immature Granulocytes % (auto) 0.1 %; Lymphocytes # (auto) 3.95 K/uL (1.2-3.4); Lymphocytes % (auto) 46.6 %; Mean Corpuscular Hgb Conc 34.9 g/dL (32-36); Mean Corpuscular Volume 90.7 fL (80-100); Mean Platelet Volume 9.1 fL (7.4-10.4); Monocytes # (auto) 0.62 K/uL (0.11-0.59); Monocytes % (auto) 7.3 %; Neutrophils # (auto) 3.37 K/uL (1.4-6.5); Neutrophils % (auto) 39.8 %; Platelet Count 322 K/uL (130-400); RDW Coefficient of Variation 13.4 % (11.5-14.5); RDW Standard Deviation 44.6 fL (36.4-46.3); Red Blood Count 4.74 M/uL (4.2-5.4); White Blood Count 8.47 K/uL (4.8-10.8)
[2019-01-15 06:16] LABS: Calcium 9.4 mg/dl (8.5-10.1); Creatinine Clr Calc Pharmacy 55.4 ml/min; Est GFR (African American) 90.4; Magnesium 2.3 mg/dl (1.8-2.4); Potassium 3.9 mmol/L (3.5-5.1)
[2019-01-15] MEDS ORDERED: ASPIRIN 81 MG ECTAB PO SCH (09:00)
[2019-01-15] MEDS ORDERED: METOPROLOL TARTRATE 50 MG TAB PO SCH (09:00)
[2019-01-15 12:08] VITALS: O2SAT 98
[2019-01-15] MEDS ORDERED: METOPROLOL TARTRATE 25 MG TAB PO ONE (14:48)
[2019-01-15 14:50] VITALS: BP 137/96; PULSE 82; TEMP 99
--- NOTE | 2019-01-15 14:59 | Cardiology Consultation ---
Date of Consultation January 15, 2019 Assessment & Plan (1) Palpitations with regular cardiac rhythm: Patient describes a sensation of feeling her heart "pounding" with exertion and rest. Stable sinus rhythm has been noted on serial EKG tracings as well as telemetry. Her secondary concern is that she feels that she has had high blood pressure as an outpatient. For the most part, her readings have been relatively well controlled while observed overnight. Her most recent reading was 137/96, and the reading before that was 97/64. Serial cardiac enzymes are negative, resting echo is without wall motion abnormality's, and her EKGs are without suggestion of ischemia. I counseled the patient that I could tell her with a high degree of certainty that she has not had a heart attack. I discussed options of proceeding with a stress test for further risk stratification. The patient and I agree that she would not build exercise sufficiently enough to allow an exercise be stress test. I discussed with her the protocol of a chemical stress test and she is very concerned about having shaikh ch a stress test that would increase her heart rate and blood pressure with a chemical. She declines having this test. I think at this point that a reasonable choice, and recommend ongoing conservative therapy with metoprolol. Recommend that we can increase her dose from 50 mg metoprolol tartrate twice daily to 100 mg every morning, 50 mg every afternoon. Typically this medication does not decline the blood pressure significantly and I think she will tolerate it well. The patient does not have a recent lipid panel available on file. I have requested a fasting lipid panel perhaps he can be added to her morning labs. If not, this can be performed by her primary care provider. She tells me that she sees a provider at [facility]. Patient is stable from my perspective for discharge. Case discussed with Dr. Grier. History of Present Illness Attending Physician: Summer Grier MD History of Present Illness Damaris Miller is a 68 year old female seen in cardiology consultation per the request of Dr. Delvalle for the evaluation of chest discomfort and palpitations. The patient states that she has baseline shortness of breath. She describes herself as a "former smoker "but still like to when up now and then. Her most significant complaint is that she feels that her blood pressure has been higher recently. She notes a pounding sensation in her chest that occurs with minimal exertion and her apartment. She has been on metoprolol tartrate 50 mg twice daily for several years for similar symptoms. Allergies Allergy/AdvReac Type Severity Reaction Status Date / Time atropine Allergy Severe castillo, hard Verified 01/14/19 22:01 time breathing clonidine Allergy Severe RAISES Unverified 01/14/19 22:01 B.P., ANXIOUSNESS diphenhydramine Allergy Severe "I ALMOST Verified 01/14/19 22:01 ." hyoscyamine Allergy Severe castillo, hard Verified 01/14/19 22:01 time breathing labetalol Allergy Severe selling,loss Verified 01/14/19 22:01 of taste,itch, rash phenobarbital Allergy Severe castillo, hard Verified 01/14/19 22:01 time breathing prednisone Allergy Severe Edema Verified 01/14/19 22:01 face,lips and tongue. scopolamine Allergy Severe castillo, hard Verified 01/14/19 22:01 time breathing enoxaparin Allergy Intermediate RASH Verified 01/14/19 22:01 levofloxacin Allergy Intermediate ARM TURNED Verified 01/14/19 22:01 "FIREY RED" WHEN INFUSED, CLEARED IN A FEW HOURS tramadol Allergy Intermediate blisters Verified 01/14/19 22:01 all over warfarin Allergy Intermediate rash Verified 01/14/19 22:01 chlorpromazine Allergy Mild TOLERATING Verified 01/14/19 22:01 PROLIXIN AT HOME 01/15/08 Penicillins Allergy Mild Unknown Verified 01/14/19 22:01 coumarin Allergy Unknown UNKNOWN Verified 12/22/18 12:50 naproxen Allergy Unknown Unknown Verified 12/22/18 12:50 morphine AdvReac Severe SHOCK;TOLERATES Verified 12/22/18 12:50 DEMEROL aspirin AdvReac Intermediate BLEEDING Verified 12/22/18 12:50 codeine AdvReac Intermediate BP DROPS Verified 12/22/18 12:50 AND PASSES OUT dicyclomine AdvReac Intermediate GI SYMPTOMS Verified 12/22/18 12:50 ibuprofen AdvReac Intermediate BLEEDING Verified 12/22/18 12:50 amitriptyline AdvReac Mild Nausea/vomi Verified 12/22/18 12:50 timg lisinopril AdvReac Mild COUGH Verified 12/22/18 12:50 nitrofurantoin AdvReac Unknown hallucinati Verified 12/22/18 12:50 ng Home Medications Home Medications Medication Instructions Recorded Confirmed Type metoprolol tartrate [Lopressor] 50 mg PO BID 06/19/18 01/14/19 History aspirin [Aspirin Childrens] 81 mg PO DAILY 12/21/18 01/14/19 History Molasses 1 dose PO DAILY PRN 01/14/19 01/14/19 History Patient History Medical History Posttraumatic stress disorder (Chronic 01/14/13) COPD (chronic obstructive pulmonary disease) (Chronic) Hypertension (Chronic) Schizoaffective disorder (Chronic 01/22/12) Tobacco abuse (Chronic) H/O drug abuse (Chronic) Hypertensive urgency (Resolved) High blood pressure (Chronic) DVT (deep venous thrombosis) Family History Other Family history non-contributory Social History Preferred Language: Pashto Communication Ability: Effective Visual Impairment: No Limitations Hearing Ability: Normal Floor Winder Required: Yes Beliefs That Will Affect Care: None marital status: Single Current Living Situation: Alone Current Living Situation Comment: living in homeless shelters since February 2018 Other Information That Helps Us Care for You: No Feels Safe at Home: Yes Safety Concerns: Feels Safe At This Time Smoking Status: Former smoker Tobacco Type: cigarettes Do You Dip or Chew Tobacco: No Second Hand Exposure: No Tobacco Cessation Education Requested by Patient: No Hx Alcohol Use: No Hx Substance Use: No Physical Exam Physical Exam: General: no acute distress and stated age , thin Eyes: conjunctiva are pink and non-injected, sclera clear Neck: normal jugular venous pulse, no hepatojugular reflux Chest: normal shape and normal respiratory effort Lungs: clear to auscultation and percussion Cardiac Exam: - regular heart sounds, no murmurs, rubs, or gallops, no jugular venous distention Abdomen: abdomen soft, non-tender, no abnormal masses and no hepatosplenomegaly Extremities: no edema and no cyanosis Neuro:awake, coversant, follows commands, no focal motor deficits Psych: appropriate affect and insight. Results & Data Vital Signs (Past 12 Hours) Vital Signs Temp Pulse Pulse Resp BP BP Pulse Ox 01/15/19 14:49 37.2 C 82 18 137/96 98 01/15/19 14:23 36.8 C 71 17 97/64 L 136/81 98 01/15/19 11:30 36.8 C 71 17 97/64 L 98 01/15/19 08:40 74 136/81 01/15/19 07:28 65 01/15/19 07:00 36.6 C 17 96/56 L 100 01/15/19 04:07 36.6 C 72 20 116/77 98 01/15/19 02:53 36.7 C 69 12 170/95 H 98 Laboratory Results Cardiac Enzymes 01/14/19 01/14/19 01/15/19 Range/Units 20:45 20:45 00:17 AST 18 (15-37) U/L Troponin I < 0.015 < 0.015 (0-0.045) ng/ml 01/15/19 01/15/19 Range/Units 05:31 11:54 AST (15-37) U/L Troponin I < 0.015 < 0.015 (0-0.045) ng/ml CBC 01/14/19 01/15/19 Range/Units 20:45 05:31 WBC 8.86 8.47 (4.8-10.8) K/uL RBC 4.95 4.74 (4.2-5.4) M/uL Hgb 16.1 H 15.0 (12.0-16.0) g/dL Hct 44.1 43.0 (37-47) % Plt Count 371 322 (130-400) K/uL Neut # (Auto) 4.59 3.37 (1.4-6.5) K/uL Lymph # (Auto) 3.26 3.95 H (1.2-3.4) K/uL [place] # (Auto) 0.68 H 0.62 H (0.11-0.59) K/uL Eos # (Auto) 0.25 0.48 (0-0.5) K/uL Baso # (Auto) 0.06 0.04 (0-0.2) K/uL Comprehensive Metabolic Panel 01/14/19 01/15/19 Range/Units 20:45 05:31 Sodium 138 140 (136-145) mmol/L Potassium 3.8 3.9 (3.5-5.1) mmol/L Chloride 106 109 H (98-107) mmol/L Carbon Dioxide 23 24 (21-32) mmol/L BUN 9 9 (7-18) mg/dl Creatinine 0.89 0.79 (0.6-1.2) mg/dl Glucose 87 84 (70-99) mg/dl Calcium 10.2 H 9.4 (8.5-10.1) mg/dl AST 18 (15-37) U/L ALT 23 (12-78) U/L Alkaline Phosphatase 96 (45-117) U/L Total Protein 8.2 (6.4-8.2) gm/dl Albumin 4.3 (3.4-5.0) gm/dl Intake and Output 01/14/19 01/15/19 01/15/19 22:59 06:59 14:59 Intake Total 500 / 500 Output Total 350 / 350 Balance -350 / 150 500 / 150 Intake: IV 500 / 500 Nss 500 ml @ 999 mls/hr IV . 500 / 500 Q31M [facility] Rx#:[id number] Output: Urine 350 / 350 Other: Other Intake Source npo Weight 56.2 kg 55.5 kg 55.5 kg Patient Weight 01/16/19 06:59 Weight 55.5 kg Diagnostic Findings She has had 3 EKG tracings thus far which reveal sinus rhythm in the 70 to 80 bpm range, with no repolarization abnormalities. Echocardiogram reveals mild concentric left ventricular hypertrophy, normal LVEF, normal wall motion
[2019-01-15 15:39] LABS: Chol HDL Ratio 5; Cholesterol 252 mg/dl (0-200); HDL Cholesterol 49 mg/dl; LDL Cholesterol Calculated 183 mg/dl; Triglycerides 98 mg/dl (0-150); VLDL Cholesterol 20 mg/dl
--- NOTE | 2019-01-15 17:23 | Hospitalist Progress Note ---
Date of Service January 15, 2019 Assessment & Plan (1) Palpitations with regular cardiac rhythm: Patient reports of symptoms of palpitation, pounding heartbeat No arrhythmia noted on telemetry, heart rate remains stable TSH within normal limit Evaluated by cardiology, appreciate input Lopressor dose adjusted: 100 mg p.o. in a.m./50 mg p.o. in p.m. (was on 50 mg p.o. twice daily) Patient will need follow-up as outpatient for anxiety management/hospital follow-up scheduled with [facility] Present on Admission?: Yes (2) Chest pain, exertional: Possibleanxiety induced Atypical chest pain for angina, symptoms completely resolved Serial cardiac markers negative Resting echo shows no wall motion abnormality, normal ejection fraction Patient unable to do exercise stress test, secondary to arthritis of joints Anxious about chemical/pharmacological stress test Appreciate input from cardiology, stable to be discharged home with adjustment of metoprolol tartrate, outpatient follow-up with family physician, (3) Chronic abdominal pain: Chronic, associated with bloating, constipation Abdominal exam benign Tolerating diet Patient is recommended to follow-up with family physician for chronic issues (4) Anxiety: Outpatient follow-up with family physician, patient will not be discharged with any benzodiazepine or narcotic meds CODE STATUS: Full code Disposition: Stable to be discharged home today Subjective No complaint of chest pain, no shortness of breath, Concern of abdominal bloating, No complaint of palpitation or dizzy spell Serial cardiac markers remains negative, resting echo within normal limits Evaluated by cardiology, patient does not want to have a chemical stress test, unable to do exercise stress test, due to joint pain Stable to be discharged home, Appointment scheduled with [facility] Outpatient stress test if developed similar anginal symptoms in future Physical Exam Constitutional: well developed; no acute distress Eyes: PERRL, conjunctivae normal, anicteric sclerae ENMT: external ear and nose normal, oropharynx normal Neck: trachea midline, no thyromegaly Respiratory: normal respiratory effort, lungs clear to auscultation Cardiovascular: RRR, no murmur, no edema Gastrointestinal (Abdomen): normal bowel sounds, soft, nontender, no hepatosplenomegaly Musculoskeletal: no cyanosis or clubbing, extremities motor strength 5/5 Skin: no rashes, warm and dry Neurologic: PERRL, EOMI, accommodation nl, no face palsy, no dysarthria Psychiatric: Orientation: alert and oriented x 3 Affect: + anxious affect Mood: + anxious mood Insight: + limited insight Results & Data Vital Signs (Past 12 Hours) Vital Signs Temp Pulse Pulse Resp BP BP Pulse Ox 01/15/19 17:07 37.2 C 82 18 97/64 L 137/96 98 01/15/19 15:11 37.2 C 82 18 97/64 L 137/96 98 01/15/19 15:05 37.2 C 82 18 97/64 L 137/96 98 01/15/19 14:49 37.2 C 82 18 137/96 98 01/15/19 14:23 36.8 C 71 17 97/64 L 136/81 98 01/15/19 11:30 36.8 C 71 17 97/64 L 98 01/15/19 08:40 74 136/81 01/15/19 07:28 65 01/15/19 07:00 36.6 C 17 96/56 L 100
--- NOTE | 2019-01-15 17:24 | Discharge Summary ---
Date of Service January 15, 2019 Admission HPI Per Admitting Provider DICTATED BY: Scooby Delvalle MD DATE OF ADMISSION: 01/14/2019 CHIEF COMPLAINT: Chest pain. HISTORY OF PRESENT ILLNESS: This is a 68-year-old female with past medical history significant for hypertension, irritable bowel syndrome, chronic pain disorder, anxiety state, history of nonadherence to medical treatment, posttraumatic stress disorder, history of bipolar 1 disorder, tobacco use disorder, history of drug dependence abuse, history of suicide attempt by Tylenol overdose, schizoaffective disorder, history of DVTs multiple, status post IVC filter, not on anticoagulation secondary to COUMADIN CAUSING RASH, presents with chest pain. The patient states she is living alone in this apartment since last 5 months. She is getting on and off palpitations with exertion. Today, while doing her dishes, she felt her heart pounding and felt short of breath, weak and tired, which triggered her anxiety and panic attack and got worse. She thought she may have heart attack. Her father of heart attack at age 66. She got worried and she came to the ER. In the ER, 1 dose of IV Ativan was given, which relieved her symptoms. Currently resting comfortably and hemodynamically stable and currently heart rate is stable. She says this is going on for some time, but today got worse. She has had chronic pain, complains of pain in the belly and pain in the back. She has had chronic constipation, chronic headaches. She was feeling nauseous and sweating today when this episode happened. Denies any fever, chills. She has smoked for 50 years, but lately cutting back on smoking. She currently smokes only 1 or 2 cigarettes a day. No family close by. Otherwise, ambulates okay, but complains of getting weaker. Denies any rash, no diarrhea, no blood in the stools. Normal bladder movements. Appetite is not that great. Principal Diagnosis Chest pain/noncardiac/normal echocardiogram/anxiety disorder Discharge Exam Constitutional well developed; no acute distress Eyes PERRL, conjunctivae normal, anicteric sclerae ENMT external ear and nose normal, oropharynx normal Neck trachea midline, no thyromegaly Respiratory normal respiratory effort, lungs clear to auscultation Cardiovascular RRR, no murmur, no edema Gastrointestinal (Abdomen) normal bowel sounds, soft, nontender, no hepatosplenomegaly Musculoskeletal no cyanosis or clubbing, extremities motor strength 5/5 Skin no rashes, warm and dry Neurologic PERRL, EOMI, accommodation nl, no face palsy, no dysarthria Psychiatric Orientation: alert and oriented x 3 Affect: + anxious affect Mood: + anxious mood Insight: + limited insight Discharge Data Allergies Allergy/AdvReac Type Severity Reaction Status Date / Time atropine Allergy Severe castillo, hard Verified 01/14/19 22:01 time breathing clonidine Allergy Severe RAISES Unverified 01/14/19 22:01 B.P., ANXIOUSNESS diphenhydramine Allergy Severe "I ALMOST Verified 01/14/19 22:01 ." hyoscyamine Allergy Severe castillo, hard Verified 01/14/19 22:01 time breathing labetalol Allergy Severe selling,loss Verified 01/14/19 22:01 of taste,itch, rash phenobarbital Allergy Severe castillo, hard Verified 01/14/19 22:01 time breathing prednisone Allergy Severe Edema Verified 01/14/19 22:01 face,lips and tongue. scopolamine Allergy Severe castillo, hard Verified 01/14/19 22:01 time breathing enoxaparin Allergy Intermediate RASH Verified 01/14/19 22:01 levofloxacin Allergy Intermediate ARM TURNED Verified 01/14/19 22:01 "FIREY RED" WHEN INFUSED, CLEARED IN A FEW HOURS tramadol Allergy Intermediate blisters Verified 01/14/19 22:01 all over warfarin Allergy Intermediate rash Verified 01/14/19 22:01 chlorpromazine Allergy Mild TOLERATING Verified 01/14/19 22:01 PROLIXIN AT HOME 01/15/08 Penicillins Allergy Mild Unknown Verified 01/14/19 22:01 coumarin Allergy Unknown UNKNOWN Verified 12/22/18 12:50 naproxen Allergy Unknown Unknown Verified 12/22/18 12:50 morphine AdvReac Severe SHOCK;TOLERATES Verified 12/22/18 12:50 DEMEROL aspirin AdvReac Intermediate BLEEDING Verified 12/22/18 12:50 codeine AdvReac Intermediate BP DROPS Verified 12/22/18 12:50 AND PASSES OUT dicyclomine AdvReac Intermediate GI SYMPTOMS Verified 12/22/18 12:50 ibuprofen AdvReac Intermediate BLEEDING Verified 12/22/18 12:50 amitriptyline AdvReac Mild Nausea/vomi Verified 05/20/19 12:50 timg lisinopril AdvReac Mild COUGH Verified 12/22/18 12:50 nitrofurantoin AdvReac Unknown hallucinati Verified 12/22/18 12:50 ng Consultations 01/14/19 22:18 ED Decision to Admit Stat 01/15/19 08:00 Consult Cardiology Routine Ordered Studies 01/14/19 20:16 CT abd pelvis wo con Stat Hospital Course (1) Palpitations with regular cardiac rhythm: Patient reports of symptoms of palpitation, pounding heartbeat No arrhythmia noted on telemetry, heart rate remains stable TSH within normal limit Evaluated by cardiology, appreciate input Lopressor dose adjusted: 100 mg p.o. in a.m./50 mg p.o. in p.m. (was on 50 mg p.o. twice daily) Patient will need follow-up as outpatient for anxiety management/hospital follow-up scheduled with [facility] (2) Chest pain, exertional: Possibleanxiety induced Atypical chest pain for angina, symptoms completely resolved Serial cardiac markers negative Resting echo shows no wall motion abnormality, normal ejection fraction Patient unable to do exercise stress test, secondary to arthritis of joints Anxious about chemical/pharmacological stress test Appreciate input from cardiology, stable to be discharged home with adjustment of metoprolol tartrate, outpatient follow-up with family physician, (3) Chronic abdominal pain: Chronic, associated with bloating, constipation Abdominal exam benign Tolerating diet Patient is recommended to follow-up with family physician for chronic issues (4) Anxiety: Outpatient follow-up with family physician, patient will not be discharged with any benzodiazepine or narcotic meds CODE STATUS: Full code Disposition: Stable to be discharged home today Total Time Total Time Spent Total Time Spent (In Minutes): Approximately 45 minutes Total Time Includes: Examination of the Patient, Discharge Planning, Medication Reconciliation and Communication With Other Providers Discharge Plan Discharge Items Patient Disposition: Home - Self-Care Reason For Visit: CHEST PAIN Discharge Diagnosis: Chest pain, noncardiac, normal echocardiogram, anxiety disorder Discharge Goals: Decrease discomfort Activity: Resume your previous activity Non-emergency contact: Primary Care Provider Call non-emergency contact if: you have any medication questions Diet: Heart Healthy Addtl Provider Instructions: Hospital follow-up with Dr. Carlyn Munoz MD on 01/16/2019 @ 11:00 AM Internal Medicine [facility] MEDICATION CHANGE Metoprolol dose increased to 100 mg (2 tablets)in the morning 50 mg (1 tablet )in the evening Prescriptions: New metoprolol tartrate 50 mg tablet 50 mg PO BID 30 Days Qty: 90 RF: 0 Continued Molasses 1 dose PO DAILY PRN (Reason: Constipation) RF: 0 aspirin [Aspirin Childrens] 81 mg Tablet,Chewable 81 mg PO DAILY RF: 0 Discontinued metoprolol tartrate [Lopressor] 50 mg tablet 50 mg PO BID RF: 0 Stand-Alone Forms: Call Back Authorization, [facility] Discharge Orders: Discharge Order (Routine); Ordered 01/15/19 Ordered By: Summer Grier Admission Data Admit Date/Time: 01/14/19 23:42 Attending Provider: Summer Grier Admit Provider: Scooby Delvalle Primary Care Provider: Brett Lopez Other Providers: Scooby Delvalle ; Armaan Schwartz Service: Telemetry Medical Other Interventions: Discharge Summary Assessment (RN) Last Done: 01/15/19 17:07
== END 2019-01-15 17:56 | disposition home or self-care (01) ==
LOC: ED 19:55 → 2N 19:55

== ENCOUNTER 2019-02-04 13:49 | Inpatient (IN) ==
[2019-02-04] MEDS ORDERED: SODIUM CHLORIDE 0.9% 1000ML 1,000 ML IV SCH ×2 (14:45→15:30)
--- NOTE | 2019-02-04 15:05 | XRay Report ---
XR chest 1V portable HISTORY: 68 years-old Female SYNCOPE acute syncope COMPARISON: Chest radiograph 01/14/2019 TECHNIQUE: Portable AP view of the chest FINDINGS: Cardiomediastinal and hilar silhouettes are within normal limits. Calcification of the thoracic aorti c arch. Ill-defined opacity about the right lung apex measures over 2 cm. No pneumothorax, pleural ef fusion or overt pulmonary edema. Degenerative changes of the shoulders and spine. IVC filter noted. IMPRESSION: 1. No acute process. 2. Ill-defined opacity of the right upper lung may be secondary to summation density with adjacent an terior right first rib. This could correlated with oblique images to exclude underlying pulmonary les ion. The above report was generated using voice recognition software. It may contain grammatical, syntax o r spelling errors. Electronically signed by: Abhi Lees M.D. 02/04/2019 3:04 PM
[2019-02-04 15:29] LABS: Basophils # (auto) 0.04 K/uL (0-0.2); Basophils % (auto) 0.3 %; Eosinophils # (auto) 0.14 K/uL (0-0.5); Eosinophils % (auto) 1.2 %; Hematocrit (blood only) 44.3 % (37-47); Hemoglobin 15.8 g/dL (12.0-16.0); Immature Granulocytes # (auto) 0.02 K/uL (0.00-0.02); Immature Granulocytes % (auto) 0.2 %; Lymphocytes # (auto) 1.72 K/uL (1.2-3.4); Lymphocytes % (auto) 14.1 %; Mean Corpuscular Hgb Conc 35.7 g/dL (32-36); Mean Corpuscular Volume 92.1 fL (80-100); Mean Platelet Volume 9.8 fL (7.4-10.4); Monocytes # (auto) 0.81 K/uL (0.11-0.59); Monocytes % (auto) 6.7 %; Neutrophils # (auto) 9.44 K/uL (1.4-6.5); Neutrophils % (auto) 77.5 %; Platelet Count 398 K/uL (130-400); RDW Coefficient of Variation 13.7 % (11.5-14.5); RDW Standard Deviation 45.7 fL (36.4-46.3); Red Blood Count 4.81 M/uL (4.2-5.4); White Blood Count 12.17 K/uL (4.8-10.8)
[2019-02-04] MEDS ORDERED: SODIUM CHLORIDE 0.9% 500 ML IV SCH (15:30)
[2019-02-04 15:47] LABS: Albumin Level 4.3 gm/dl (3.4-5.0); BUN Creatinine Ratio 6.6 (10-20); Calcium 9.9 mg/dl (8.5-10.1); Creatinine Clr Calc Pharmacy 49.2 ml/min; Est GFR (African American) 78.3; Est GFR (Non-African American) 67.5
[2019-02-04] MEDS ORDERED: METOPROLOL TARTRATE 50 MG TAB PO STA (15:57)
[2019-02-04 15:59] LABS: Albumin Globulin Ratio 1.1 (0.9-2); Bilirubin,Total 0.6 mg/dl (0.2-1); Total Protein 8.3 gm/dl (6.4-8.2); Troponin I 1.29 ng/ml (0-0.045)
[2019-02-04] MEDS ORDERED: HydrALAZINE HCL 20 MG/ML VIAL IV STA (16:00)
[2019-02-04] MEDS ORDERED: ASPIRIN CHEW 324 MG PO STA (16:01)
--- NOTE | 2019-02-04 17:13 | History & Physical Report ---
Date of Service February 04, 2019 Assessment & Plan (1) Pre-syncope: (2) Hypertensive urgency: (3) Elevated troponin: This is a 68-year-old female who has a significant past medical history of schizoaffective disorder, bipolar type I, PTSD anxiety, hypertension, IBS, COPD, history of DVT status post IVCF, history of suicide attempt by APAP who presents to [facility] ED secondary to a presyncopal event that happened prior to arrival. Patient difficult/poor historian but does not appear to be adela syncope Pt with Uncontrolled HTN, HTN urgency and elevated troponin She is w/o chest pain or ECG ST T wave changes Troponin likely elevated in setting of HTN Urgency Received IV hydralazine 10mg in ED along with 50mg of metoprolol tartrate There is some question regarding medication compliance admit to telemetry Cycle troponins -If troponin continues to elevate will initate IV heparin; but feel likely secondary to HTN urgency - bp improved to 140 systolically repeat ecg Pt recently had echo 01/14/19 revealed 65 to 70% EF, grade 1 diastolic dysfunction, mild LVH, focal calcification posterior mitral valve leaflet Make n.p.o. after midnight in event and intervention needs to take place Stop Lopressor and Start coreg 12.5mg po bid along with Losartan 25mg daily monitor blood pressure closely Feel anxiety and psychiatric diagnoses may also be playing a role in patients elevated blood pressure (4) Schizoaffective disorder: (5) Posttraumatic stress disorder: (6) Anxiety: Pt currently not receiving psychiatric tx for above dx She does not wish to see psychiatry Had previously been on psychiatric meds in past few years prior (7) Tobacco abuse: nicotine patch ordered smoking cessation encouraged (8) Abnormal CXR: CXR in ED revealed Ill-defined opacity of the right upper lung may be secondary to summation density with adjacent anterior right first rib. This could correlated with oblique images to exclude underlying pulmonary lesion. CXR 01/14/19 this was unseen Recommend follow up oblique view in a.m. or as outpt (9) DVT (deep venous thrombosis): SCDS/TEDS evaluate on daily basis need for vte; pt has bubba filter in place Disposition: Admit to med/surg telemetry; Discharge to home when able Follow up: PCP Dr. Lopez upon discharge Patient was seen and examined in collaboration with Dr. Sebastian, please see addendum History of Present Illness Chief Complaint: Pre syncope episode prior to arrival Primary Care Provider: Brett Lopez DO This is a 68-year-old female who has a significant past medical history of schizoaffective disorder, bipolar type I, PTSD anxiety, hypertension, IBS, COPD, history of DVT status post IVCF, history of suicide attempt by APAP who presents to [facility] ED secondary to a presyncopal event that happened prior to arrival. ROS difficult to obtain secondary to patient overall feeling anxious and being a poor historian. Apparently patient was unable to get into her apartment today and spent most of the day outside in the heat in which she felt slightly dehydrated. While waiting to get back into her apartment she decided to walk over to the [employer] in [place]. She was standing in line and leaning over her cart when she felt faint, "like I am anemic and my face was white." Because of this she opted to sit on bench and lie down. She feels like things, "blacked out." She recalls all events prior to sitting on bench and when she was lying on bench. Episode of blacking out lasted a couple seconds to 1 minute. At the time of event she also felt her, "heart was pounding racing real fast," facial numbness, bilateral arm numbness." She denies any recent illness, fever, chills, sweats, dizziness, chest pain, palpitations, shortness of breath at rest, abdominal pain, change in her bowel or urinary habits. She states she gets short of breath on a daily basis doing routine activities but denies shortness of breath at rest, orthopnea or PND. She denies any chest pain on exertion. She denies any lower extremity edema, although she does have chronic left lower extremity edema due to prior history of DVT. Patient states she was compliant with her medications and took her metoprolol this morning 100 mg. Of significance patient has had recent hospital/ER visits. On 12/21 she presented with chest pain and uncontrolled hypertension and was discharged home. On 12/22 she was seen in the ER for uncontrolled hypertension. On 01/14 she was admitted to [facility] secondary to chest pain. At that time she underwent cardiac work-up which her troponins remained unchanged, EKG revealed normal sinus rhythm. Echocardiogram revealed EF 65 to 70% with a grade 1 diastolic dysfunction, focal calcification of the posterior MV leaflet, mild concentric LVH. At this time patient had recently been on metoprolol tartrate 50 mg twice daily and it was titrated to metoprolol tartrate 100 mg in the a.m. and 50 mg in the p.m. She did not undergo any stress testing as it was felt she was unable to tolerate exercise stress test and patient opted to not undergo chemical stress test. She does note that her father was hospitalized at age 66, "my current age," and of heart attack. Allergies Allergy/AdvReac Type Severity Reaction Status Date / Time atropine Allergy Severe castillo, hard Verified 02/04/19 15:08 time breathing clonidine Allergy Severe RAISES Unverified 02/04/19 15:08 B.P., ANXIOUSNESS diphenhydramine Allergy Severe "I ALMOST Verified 02/04/19 15:08 ." hyoscyamine Allergy Severe castillo, hard Verified 02/04/19 15:08 time breathing labetalol Allergy Severe selling,loss Verified 02/04/19 15:08 of taste,itch, rash phenobarbital Allergy Severe castillo, hard Verified 02/04/19 15:08 time breathing prednisone Allergy Severe Edema Verified 02/04/19 15:08 face,lips and tongue. scopolamine Allergy Severe castillo, hard Verified 02/04/19 15:08 time breathing enoxaparin Allergy Intermediate RASH Verified 02/04/19 15:08 levofloxacin Allergy Intermediate ARM TURNED Verified 02/04/19 15:08 "FIREY RED" WHEN INFUSED, CLEARED IN A FEW HOURS tramadol Allergy Intermediate blisters Verified 02/04/19 15:08 all over warfarin Allergy Intermediate rash Verified 02/04/19 15:08 chlorpromazine Allergy Mild TOLERATING Verified 02/04/19 15:08 PROLIXIN AT HOME 01/15/08 Penicillins Allergy Mild Unknown Verified 02/04/19 15:08 coumarin Allergy Unknown UNKNOWN Verified 02/04/19 15:08 naproxen Allergy Unknown Unknown Verified 02/04/19 15:08 morphine AdvReac Severe SHOCK;TOLERATES Verified 02/04/19 15:08 DEMEROL aspirin AdvReac Intermediate BLEEDING Verified 02/04/19 15:08 codeine AdvReac Intermediate BP DROPS Verified 02/04/19 15:08 AND PASSES OUT dicyclomine AdvReac Intermediate GI SYMPTOMS Verified 02/04/19 15:08 ibuprofen AdvReac Intermediate BLEEDING Verified 02/04/19 15:08 amitriptyline AdvReac Mild Nausea/vomi Verified 02/04/19 15:08 timg lisinopril AdvReac Mild COUGH Verified 02/04/19 15:08 nitrofurantoin AdvReac Unknown hallucinati Verified 02/04/19 15:08 ng Home Medications Home Medications Medication Instructions Recorded Confirmed Type aspirin [Aspirin Childrens] 81 mg PO DAILY 12/21/18 02/04/19 History Molasses 1 dose PO DAILY PRN 01/14/19 02/04/19 History metoprolol tartrate 50 mg PO QPM 02/04/19 02/04/19 History metoprolol tartrate 100 mg PO QAM 02/04/19 02/04/19 History Past Med/Surg History Medical History DVT (deep venous thrombosis) (Chronic) Posttraumatic stress disorder (Chronic 01/14/13) COPD (chronic obstructive pulmonary disease) (Chronic) Hypertension (Chronic) Schizoaffective disorder (Chronic 01/22/12) Tobacco abuse (Chronic) H/O drug abuse (Chronic) Hypertensive urgency (Resolved) High blood pressure (Chronic) Surgical History History of cystoscopy (Chronic) History of inferior vena caval filter placement (Chronic) Family History Father Myocardial infarction, Onset Age: 66 Diabetes Mother Stroke Colorectal cancer Other Family history non-contributory Social History Preferred Language: Nepali Communication Ability: Effective Communication Ability Comment: needs frequent redirection to stay on task Visual Impairment: No Limitations Hearing Ability: Normal Drafter Engineering Required: No Beliefs That Will Affect Care: None marital status: Single Current Living Situation: Alone Current Living Situation Comment: Living in apartment in [place] Other Information That Helps Us Care for You: No Feels Safe at Home: Yes Safety Concerns: Feels Safe At This Time Smoking Status: Current some day smoker Tobacco Type: cigarettes Cigarettes Per Day: "one pack every 2 weeks Do You Dip or Chew Tobacco: No Second Hand Exposure: No Hx Alcohol Use: No Hx Substance Use: No Review of Systems Review of Systems: As noted per HPI, 10 systems reviewed and negative unless noted above. Physical Exam Physical Exam: Gen: Petite, female, sitting up in bed, appears anxious, shaikh nglasses in place, does not always answer questions appropriately, hard to direct conversation Head: Normocephalic, Atraumatic Eyes: Sclera normal, sunglasses in place patient refuses to take off ENT: Gross hearing intact, normal pharynx, mucous membranes dry Neck: supple, no adenopathy, No JVD, no bruit, Resp: Clear to auscultation b/l, no wheeze, rales, rhonchi. Normal insp/exp effort, no accessory muscle use CV: Regular rate, regular rhythm, no murmur, rub, gallop, or ectopy Abd: +BS x 4, soft, nontender, nondistended Musculoskeletal: moves extremities active rom x 4, strength intact, good art historian strength Extremities: No edema bilaterally Skin: warm, moist, no rash, negative turgor, cap refill < 2sec Neuro: Alert and oriented x 3, speech normal, anxious mood/affect, cran nerve 2- 12 intact grossly : deferred Results & Data Vital Signs (Past 12 Hours) Vital Signs Temp Pulse Resp BP Pulse Ox 02/04/19 15:32 37.1 C 20 98 02/04/19 14:38 100 02/04/19 14:04 37.1 C 91 H 20 199/129 H 100 02/04/19 14:03 89 19 192/93 H 97 Laboratory Results Short CBC 02/04/19 Range/Units 15:05 WBC 12.17 H (4.8-10.8) K/uL Hgb 15.8 (12.0-16.0) g/dL Hct 44.3 (37-47) % Plt Count 398 (130-400) K/uL BMP 02/04/19 15:06 Sodium 138 Potassium Chloride 107 Carbon Dioxide 23 BUN 6 L Creatinine 0.89 Glucose 102 H Calcium 9.9 Cardiac Enzymes 02/04/19 02/04/19 Range/Units 15:05 15:06 Troponin I Cancelled 1.290 H* Liver Function 02/04/19 Range/Units 15:06 Total Bilirubin 0.6 (0.2-1) mg/dl AST (15-37) U/L ALT 22 (12-78) U/L Alkaline Phosphatase 103 (45-117) U/L Albumin 4.3 (3.4-5.0) gm/dl Diagnostic Findings CXR: IMPRESSION: 1. No acute process. 2. Ill-defined opacity of the right upper lung may be secondary to summation density with adjacent anterior right first rib. This could correlated with oblique images to exclude underlying pulmonary lesion. ECG Rate (beats per minute): 83 Rhythm: normal sinus Code Status & VTE Plan Code Status Full Code VTE Prophylaxis Plan VTE Prophylaxis will be ordered: Yes Supervising Physician Co-Signing Physician Notes Patient is a 68-year-old female with history of schizoaffective disorder, bipolar disorder PTSD and anxiety disorder, COPD and other problems presents after a presyncopal event today. Patient is anxious during my encounter mild in ED. Patient is a poor historian. Patient was recently hospitalized for evaluation of chest pain and uncontrolled hypertension. Patient was unable to complete exercise stress test due to arthritis and she refused chemical stress test. Patient's metoprolol was titrated during prior admission. Patient's blood pressure has been variable. Patient states being diagnosed to have multiple psychiatric conditions in the past but currently has not been on any antipsychotics since 5 to 6 years. She currently does not want to discuss about her psychological problems and does not want mental health evaluation. She was noted to have elevated blood pressure while in ED. Also noted to have mild troponin elevation but no signs of ischemia on EKG. Patient denies any chest pain. On exam patient is moderately built and nourished, normocephalic atraumatic, lungs are clear to auscultation, S1-S2, no murmur, tachycardia,, no pedal edema, abdomen soft nontender, grossly no focal neurological deficits. Mild troponin elevation is likely secondary to demand ischemia from uncontrolled hypertension. Could have underlying mental health problems contributing to her blood pressure. We will plan to trend troponins and with continues to elevate, will start on IV heparin.check orthostatics. Monitor on Tele. Consider cardiology eval. Agree with stopping metoprolol and adding Coreg, losartan for better blood pressure control. Consider psychiatric evaluation if patient agrees. Patient prefers to be DNI DNR as per my discussion with the patient. I personally reviewed the record. Patient is interviewed and examined at bedside. Patient's care is coordinated with Charisma Goodrich PA-C. Please refer to the documentation above for details of patient's presentation and for discussion of other issues. (1) Schizoaffective disorder Schizoaffective disorder type: unspecified Qualified Code(s): F25.9 - Schizoaffective disorder, unspecified
--- NOTE | 2019-02-04 17:15 | Emergency Department Note ---
Entered by Elizabeth Marcos acting as a scribe for History of Present Illness General Chief complaint: Syncope (Near Syncope) Time Seen by Provider: 02/04/19 13:57 Source: patient Mode of arrival: ambulatory Limitations: no limitations History of Present Illness Onset (ago): hour(s) 4 Location: head Radiation: non-radiation Pain Consistency: + now resolved Relieved By: + none Exacerbated By: + other (hot weather) Associated symptoms: + shortness of breath; no chest pain The patient is a 68 year old female who presents to the ED with complaints of syncope. She reports her air-conditioner stopped working yesterday and her apartment was "stiflingly hot". They got the AC turned back on this morning and the patient decided to walk to [facility], which is right behind her apartment. She states she passed out in the [facility] shortly after she got there. She reports she started to feel like she was "going to faint" before the syncopal episode occurred. She notes she has not drank any water so far today. She admits to some shortness of breath but denies any chest pain. Home Medications Home Medications Medication Instructions Recorded Confirmed Type aspirin [Aspirin Childrens] 81 mg PO DAILY 12/21/18 02/04/19 History Molasses 1 dose PO DAILY PRN 01/14/19 02/04/19 History metoprolol tartrate 50 mg PO QPM 02/04/19 02/04/19 History metoprolol tartrate 100 mg PO QAM 02/04/19 02/04/19 History Allergies Allergy/AdvReac Type Severity Reaction Status Date / Time atropine Allergy Severe castillo, hard Verified 02/04/19 15:08 time breathing clonidine Allergy Severe RAISES Unverified 02/04/19 15:08 B.P., ANXIOUSNESS diphenhydramine Allergy Severe "I ALMOST Verified 02/04/19 15:08 ." hyoscyamine Allergy Severe castillo, hard Verified 02/04/19 15:08 time breathing labetalol Allergy Severe selling,loss Verified 02/04/19 15:08 of taste,itch, rash phenobarbital Allergy Severe castillo, hard Verified 02/04/19 15:08 time breathing prednisone Allergy Severe Edema Verified 02/04/19 15:08 face,lips and tongue. scopolamine Allergy Severe castillo, hard Verified 02/04/19 15:08 time breathing enoxaparin Allergy Intermediate RASH Verified 02/04/19 15:08 levofloxacin Allergy Intermediate ARM TURNED Verified 02/04/19 15:08 "FIREY RED" WHEN INFUSED, CLEARED IN A FEW HOURS tramadol Allergy Intermediate blisters Verified 02/04/19 15:08 all over warfarin Allergy Intermediate rash Verified 02/04/19 15:08 chlorpromazine Allergy Mild TOLERATING Verified 02/04/19 15:08 PROLIXIN AT HOME 01/15/08 Penicillins Allergy Mild Unknown Verified 02/04/19 15:08 coumarin Allergy Unknown UNKNOWN Verified 02/04/19 15:08 naproxen Allergy Unknown Unknown Verified 02/04/19 15:08 morphine AdvReac Severe SHOCK;TOLERATES Verified 02/04/19 15:08 DEMEROL aspirin AdvReac Intermediate BLEEDING Verified 02/04/19 15:08 codeine AdvReac Intermediate BP DROPS Verified 02/04/19 15:08 AND PASSES OUT dicyclomine AdvReac Intermediate GI SYMPTOMS Verified 02/04/19 15:08 ibuprofen AdvReac Intermediate BLEEDING Verified 02/04/19 15:08 amitriptyline AdvReac Mild Nausea/vomi Verified 02/04/19 15:08 timg lisinopril AdvReac Mild COUGH Verified 02/04/19 15:08 nitrofurantoin AdvReac Unknown hallucinati Verified 02/04/19 15:08 ng Past Med/Surg History Medical History DVT (deep venous thrombosis) (Chronic) Posttraumatic stress disorder (Chronic 01/14/13) COPD (chronic obstructive pulmonary disease) (Chronic) Hypertension (Chronic) Schizoaffective disorder (Chronic 01/22/12) Tobacco abuse (Chronic) H/O drug abuse (Chronic) Hypertensive urgency (Resolved) High blood pressure (Chronic) Surgical History History of cystoscopy (Chronic) History of inferior vena caval filter placement (Chronic) Family History Father Myocardial infarction, Onset Age: 66 Diabetes Mother Stroke Colorectal cancer Other Family history non-contributory Social History Preferred Language: Sami Communication Ability: Effective Communication Ability Comment: needs frequent redirection to stay on task Visual Impairment: No Limitations Hearing Ability: Normal Operations Architect Required: No Beliefs That Will Affect Care: None marital status: Single Current Living Situation: Alone Current Living Situation Comment: Living in apartment in [place] Other Information That Helps Us Care for You: No Feels Safe at Home: Yes Safety Concerns: Feels Safe At This Time Smoking Status: Current every day smoker Tobacco Type: cigarettes Cigarettes Per Day: "one pack every 2 weeks Do You Dip or Chew Tobacco: No Second Hand Exposure: No Hx Alcohol Use: No Hx Substance Use: No Review of Systems See HPI for pertinent positives & negatives. and A total of 10 systems reviewed and were otherwise negative Physical Exam Vital Signs Vital Signs - 24 hr 02/04/19 14:03 02/04/19 14:04 02/04/19 14:38 Temperature 37.1 C Temperature Source Oral Sepsis Recent Fever Within 48 Hours No Sepsis New/Unexplained Change in Mental Status No Sepsis Action Taken by Nursing No Action Required Pulse Rate - Lying Pulse Rate - Sitting Pulse Rate - Standing Pulse Rate 89 91 H Pulse Rate from SpO2 Sensor 89 Respiratory Rate 19 20 Respiratory Effort / Characteristics Non-Labored Spontaneous Respiratory Depth Normal Blood Pressure - Lying Blood Pressure - Sitting Blood Pressure- Standing Blood Pressure 192/93 H 199/129 H Blood Pressure Mean 126 152 Pulse Oximetry 97 100 100 Oxygen Delivery Method Room Air Room Air Room Air 02/04/19 15:29 02/04/19 15:32 Temperature 37.1 C Temperature Source Oral Sepsis Recent Fever Within 48 Hours Sepsis New/Unexplained Change in Mental Status Sepsis Action Taken by Nursing Pulse Rate - Lying 84 Pulse Rate - Sitting 89 Pulse Rate - Standing 92 H Pulse Rate Pulse Rate from SpO2 Sensor Respiratory Rate 20 Respiratory Effort / Characteristics Respiratory Depth Blood Pressure - Lying 151/67 H Blood Pressure - Sitting 156/86 H Blood Pressure- Standing 177/99 H Blood Pressure Blood Pressure Mean Pulse Oximetry 98 Oxygen Delivery Method Room Air Vital signs reviewed. Patient is hypertensive. General: Well-appearing 68 year old female, in no significant distress. HEENT: No scleral icterus, PERRLA, neck supple. Atraumatic. Cardiovascular: Regular rate and rhythm, no extra sounds. Pulmonary: Clear to auscultation bilaterally, normal work of breathing. Abdomen: Soft, nontender, nondistended, positive bowel sounds. Musculoskeletal: Atraumatic, no peripheral edema. Neurologic: Patient awake alert and oriented x 3. Skin: Warm, dry, no rash. Course 1431: The patient was evaluated in room B7 and a complete history and physical were performed. 1600: I reevaluated the patient. She is resting comfortably. I discussed her results and my recommendation she remain in the hospital for further evaluation and management and she verbalized complete understanding and agreement. 1640: I discussed the patients case with Anand Eugene Hospitalist. The patient will be further evaluated. Consultations Consultation #1: I discussed the patients case with Anand Eugene Hospitalist. The patient will be further evaluated. Time: 16:40 Administered Medications Discontinued Medications Aspirin (Aspirin) 324 mg PO NOW STA Stop: 02/04/19 16:02 Last Admin: 02/04/19 16:28 Dose: 324 mg Documented by: [id number] Aspirin (Aspirin Chew) 81 mg PO DAILY GENARO Stop: 03/07/19 08:59 Last Admin: 02/05/19 08:06 Dose: 81 mg Documented by: [id number] Carvedilol (Coreg) 12.5 mg PO BID GEANRO Stop: 03/06/19 20:59 Last Admin: 02/05/19 21:41 Dose: Not Given Documented by: [id number] Admin: 02/05/19 08:06 Dose: 12.5 mg Documented by: [id number] Admin: 02/04/19 20:31 Dose: 12.5 mg Documented by: [id number] Docusate Sodium (Colace) 100 mg PO BID GENARO Stop: 03/07/19 08:59 Last Admin: 02/05/19 21:41 Dose: Not Given Documented by: [id number] Admin: 02/05/19 08:06 Dose: 100 mg Documented by: [id number] Hydralazine HCl (Hydralazine Hcl) 10 mg IV NOW STA Stop: 02/04/19 16:01 Last Admin: 02/04/19 16:28 Dose: 10 mg Documented by: [id number] Sodium Chloride (Nss 1000ml) 1,000 mls @ 125 mls/hr IV .Q8H GENARO Stop: 03/06/19 15:29 Last Infusion: 02/05/19 00:21 Dose: 0 mls/hr Documented by: [id number] Admin: 02/04/19 15:34 Dose: 125 mls/hr Documented by: [id number] Sodium Chloride (Nss) 500 mls @ 999 mls/hr IV .Q31M GENARO Stop: 02/04/19 16:00 Last Infusion: 02/04/19 16:05 Dose: 0 mls/hr Documented by: [id number] Admin: 02/04/19 15:33 Dose: 999 mls/hr Documented by: [id number] Heparin Sodium/Dextrose (Heparin Sodium/Dextrose) 25,000 units in 500 mls @ 21 mls/hr IV .[id number] [facility]; Protocol Stop: 03/07/19 00:44 Last Titration: 02/05/19 15:52 Dose: 0 units/hr, 0 mls/hr Documented by: [id number] Cosigned by: [id number] Titration: 02/05/19 12:02 Dose: 1,050 units/hr, 21 mls/hr Documented by: [id number] Cosigned by: [id number] Titration: 02/05/19 06:59 Dose: 950 units/hr, 19 mls/hr Documented by: [id number] Cosigned by: [id number] Admin: 02/05/19 01:00 Dose: 950 units/hr, 19 mls/hr Documented by: [id number] Cosigned by: [id number] Lorazepam (Ativan) 0.25 mg in 0.5 mls @ 0.5 mls/min IV Q4H PRN PRN Reason: Anxiety Stop: 03/07/19 04:32 Last Admin: 02/05/19 05:17 Dose: 0.5 mls/min Documented by: [id number] Heparin Sodium (Porcine) 2,000 (units/ Syringe) 2 mls @ 1 mls/min IV TODAY@1215 ONE Stop: 02/05/19 12:16 Last Admin: 02/05/19 12:22 Dose: 1 mls/min Documented by: [id number] Cosigned by: [id number] Lactated Ringer's (Lr) 1,000 mls @ 500 mls/hr IV .Q2H ONE Stop: 02/05/19 22:00 Last Infusion: 02/05/19 22:01 Dose: 0 mls/hr Documented by: [id number] Admin: 02/05/19 20:01 Dose: 500 mls/hr Documented by: [id number] Sodium Chloride (Nss 1000ml) 1,000 mls @ 125 mls/hr IV .Q8H [facility] Stop: 03/06/19 14:44 Last Admin: 02/04/19 15:34 Dose: Not Given Documented by: [id number] Losartan Potassium (Cozaar) 25 mg PO QAM [facility] Stop: 03/06/19 17:01 Last Admin: 02/05/19 08:47 Dose: 25 mg Documented by: [id number] Admin: 02/04/19 20:57 Dose: 25 mg Documented by: [id number] Losartan Potassium (Cozaar) 50 mg PO ONE ONE Stop: 02/05/19 15:00 Last Admin: 02/05/19 15:49 Dose: Not Given Documented by: [id number] Metoprolol Tartrate (Lopressor) 50 mg PO NOW STA Stop: 02/04/19 15:58 Last Admin: 02/04/19 16:28 Dose: 50 mg Documented by: [id number] Miscellaneous (Remove Nicoderm Patch) 1 ea N/A HS [facility] Stop: 03/07/19 20:59 Last Admin: 02/05/19 21:43 Dose: Not Given Documented by: [id number] Miscellaneous (Stop Order) 1 ea N/A NOW ONE Stop: 02/05/19 15:16 Last Admin: 02/05/19 15:50 Dose: 1 ea Documented by: [id number] Nicotine (Nicoderm Cq) 21 mg TD [facility] Stop: 03/07/19 08:59 Last Admin: 02/05/19 08:48 Dose: Not Given Documented by: [id number] Medical Decision Making Differential Diagnosis Differential: Vaso-vagal, Intracerebral Event, Neurologic, Infectious, Volume Deficiency, Hypoglycemia, Electrolyte Abnormality, Cardiac Source, Toxicologic, amongst other pathologies entertained. Medical Records Attestation: I reviewed the patient's medical records. Home Medications Current Medication List: was personally reviewed by me Laboratory Data Attestation: I reviewed the patient's lab results. Result diagrams: 02/05/19 09:29 02/05/19 20:27 Lab Results 02/04/19 02/04/19 02/04/19 Range/Units 15:05 15:05 15:06 WBC 12.17 H (4.8-10.8) K/uL RBC 4.81 (4.2-5.4) M/uL Hgb 15.8 (12.0-16.0) g/dL Hct 44.3 (37-47) % MCV 92.1 (80-100) fL MCH 32.8 (25-34) pg MCHC 35.7 (32-36) g/dL RDW Std Deviation 45.7 (36.4-46.3) fL RDW Coeff of Blas 13.7 (11.5-14.5) % Plt Count 398 (130-400) K/uL MPV 9.8 (7.4-10.4) fL Immature Gran % (Auto) 0.2 % Neut % (Auto) 77.5 % Lymph % (Auto) 14.1 % [place] % (Auto) 6.7 % Eos % (Auto) 1.2 % Baso % (Auto) 0.3 % Immature Gran # (Auto) 0.02 (0.00-0.02) K/uL Neut # (Auto) 9.44 H (1.4-6.5) K/uL Lymph # (Auto) 1.72 (1.2-3.4) K/uL [place] # (Auto) 0.81 H (0.11-0.59) K/uL Eos # (Auto) 0.14 (0-0.5) K/uL Baso # (Auto) 0.04 (0-0.2) K/uL PT (9.0-12.0) Seconds INR (0.9-1.1) APTT (21.0-31.0) Seconds PTT Ratio Sodium 138 (136-145) mmol/L Potassium (3.5-5.1) mmol/L Chloride 107 (98-107) mmol/L Carbon Dioxide 23 (21-32) mmol/L Anion Gap 9.0 (3-11) BUN 6 L (7-18) mg/dl Creatinine 0.89 (0.6-1.2) mg/dl Est Cr Clr Drug Dosing 49.2 ml/min Est GFR ( Amer) 78.3 Est GFR (Non-Af Amer) 67.5 BUN/Creatinine Ratio 6.6 L (10-20) Glucose 102 H (70-99) mg/dl Calcium 9.9 (8.5-10.1) mg/dl Magnesium (1.8-2.4) mg/dl Total Bilirubin 0.6 (0.2-1) mg/dl AST (15-37) U/L ALT 22 (12-78) U/L Alkaline Phosphatase 103 (45-117) U/L Troponin I Cancelled 1.290 H* Total Protein 8.3 H (6.4-8.2) gm/dl Albumin 4.3 (3.4-5.0) gm/dl Globulin 4.0 (2.5-4.0) gm/dl Albumin/Globulin Ratio 1.1 (0.9-2) TSH 1.030 (0.300-4.500) uIu/ml Urine Color Urine Appearance (Clear) Urine pH (4.5-7.5) Ur Specific Counselor (1.000-1.030) Urine Protein (Negative) Urine Glucose (UA) (Negative) Urine Ketones (Negative) Urine Blood (Negative) Urine Nitrite (Negative) Urine Bilirubin (Negative) Urine Urobilinogen (Negative) Ur Leukocyte Esterase (Negative) Urine WBC (Auto) (0-5) /hpf Urine RBC (Auto) (0-4) /hpf U Hyaline Cast (Auto) (0-5) /lpf U Epithel Cells (Auto) (0-5) /lpf Urine Bacteria (Auto) (Negative) Urine Opiates Screen (Neg) Ur Methadone, Qual (Neg) Urine Barbiturates (Neg) Ur Phencyclidine (PCP) (Neg) U Amphetamin/Meth Scrn (Neg) MDMA (Ecstasy) Screen (Neg) U Benzodiazepines Scrn (Neg) Ur Cocaine Metabolite (Neg) U Marijuana (THC) Screen (Neg) Hepatitis C Ab Screen (Neg) 02/04/19 02/04/19 02/04/19 Range/Units 16:30 18:31 18:40 WBC (4.8-10.8) K/uL RBC (4.2-5.4) M/uL Hgb (12.0-16.0) g/dL Hct (37-47) % MCV (80-100) fL MCH (25-34) pg MCHC (32-36) g/dL RDW Std Deviation (36.4-46.3) fL RDW Coeff of Blas (11.5-14.5) % Plt Count (130-400) K/uL MPV (7.4-10.4) fL Immature Gran % (Auto) % Neut % (Auto) % Lymph % (Auto) % [place] % (Auto) % Eos % (Auto) % Baso % (Auto) % Immature Gran # (Auto) (0.00-0.02) K/uL Neut # (Auto) (1.4-6.5) K/uL Lymph # (Auto) (1.2-3.4) K/uL [place] # (Auto) (0.11-0.59) K/uL Eos # (Auto) (0-0.5) K/uL Baso # (Auto) (0-0.2) K/uL PT (9.0-12.0) Seconds INR (0.9-1.1) APTT (21.0-31.0) Seconds PTT Ratio Sodium (136-145) mmol/L Potassium Cancelled 3.6 (3.5-5.1) mmol/L Chloride (98-107) mmol/L Carbon Dioxide (21-32) mmol/L Anion Gap (3-11) BUN (7-18) mg/dl Creatinine (0.6-1.2) mg/dl Est Cr Clr Drug Dosing ml/min Est GFR ( Amer) Est GFR (Non-Af Amer) BUN/Creatinine Ratio (10-20) Glucose (70-99) mg/dl Calcium (8.5-10.1) mg/dl Magnesium Cancelled 2.1 (1.8-2.4) mg/dl Total Bilirubin (0.2-1) mg/dl AST Cancelled (15-37) U/L ALT (12-78) U/L Alkaline Phosphatase (45-117) U/L Troponin I 2.070 H* Total Protein (6.4-8.2) gm/dl Albumin (3.4-5.0) gm/dl Globulin (2.5-4.0) gm/dl Albumin/Globulin Ratio (0.9-2) TSH (0.300-4.500) uIu/ml Urine Color Urine Appearance (Clear) Urine pH (4.5-7.5) Ur Specific Counselor (1.000-1.030) Urine Protein (Negative) Urine Glucose (UA) (Negative) Urine Ketones (Negative) Urine Blood (Negative) Urine Nitrite (Negative) Urine Bilirubin (Negative) Urine Urobilinogen (Negative) Ur Leukocyte Esterase (Negative) Urine WBC (Auto) (0-5) /hpf Urine RBC (Auto) (0-4) /hpf U Hyaline Cast (Auto) (0-5) /lpf U Epithel Cells (Auto) (0-5) /lpf Urine Bacteria (Auto) (Negative) Urine Opiates Screen (Neg) Ur Methadone, Qual (Neg) Urine Barbiturates (Neg) Ur Phencyclidine (PCP) (Neg) U Amphetamin/Meth Scrn (Neg) MDMA (Ecstasy) Screen (Neg) U Benzodiazepines Scrn (Neg) Ur Cocaine Metabolite (Neg) U Marijuana (THC) Screen (Neg) Hepatitis C Ab Screen Neg (Neg) 02/04/19 02/04/19 02/04/19 Range/Units 21:43 21:43 22:50 WBC (4.8-10.8) K/uL RBC (4.2-5.4) M/uL Hgb (12.0-16.0) g/dL Hct (37-47) % MCV (80-100) fL MCH (25-34) pg MCHC (32-36) g/dL RDW Std Deviation (36.4-46.3) fL RDW Coeff of Blas (11.5-14.5) % Plt Count (130-400) K/uL MPV (7.4-10.4) fL Immature Gran % (Auto) % Neut % (Auto) % Lymph % (Auto) % [place] % (Auto) % Eos % (Auto) % Baso % (Auto) % Immature Gran # (Auto) (0.00-0.02) K/uL Neut # (Auto) (1.4-6.5) K/uL Lymph # (Auto) (1.2-3.4) K/uL [place] # (Auto) (0.11-0.59) K/uL Eos # (Auto) (0-0.5) K/uL Baso # (Auto) (0-0.2) K/uL PT (9.0-12.0) Seconds INR (0.9-1.1) APTT (21.0-31.0) Seconds PTT Ratio Sodium (136-145) mmol/L Potassium (3.5-5.1) mmol/L Chloride (98-107) mmol/L Carbon Dioxide (21-32) mmol/L Anion Gap (3-11) BUN (7-18) mg/dl Creatinine (0.6-1.2) mg/dl Est Cr Clr Drug Dosing ml/min Est GFR ( Amer) Est GFR (Non-Af Amer) BUN/Creatinine Ratio (10-20) Glucose (70-99) mg/dl Calcium (8.5-10.1) mg/dl Magnesium (1.8-2.4) mg/dl Total Bilirubin (0.2-1) mg/dl AST (15-37) U/L ALT (12-78) U/L Alkaline Phosphatase (45-117) U/L Troponin I 4.570 H* Total Protein (6.4-8.2) gm/dl Albumin (3.4-5.0) gm/dl Globulin (2.5-4.0) gm/dl Albumin/Globulin Ratio (0.9-2) TSH (0.300-4.500) uIu/ml Urine Color Yellow Urine Appearance Clear (Clear) Urine pH 7.5 (4.5-7.5) Ur Specific Counselor 1.008 (1.000-1.030) Urine Protein Negative (Negative) Urine Glucose (UA) Negative (Negative) Urine Ketones Trace H (Negative) Urine Blood Negative (Negative) Urine Nitrite Negative (Negative) Urine Bilirubin Negative (Negative) Urine Urobilinogen Negative (Negative) Ur Leukocyte Esterase Trace H (Negative) Urine WBC (Auto) 1-5 (0-5) /hpf Urine RBC (Auto) 0-4 (0-4) /hpf U Hyaline Cast (Auto) 1-5 (0-5) /lpf U Epithel Cells (Auto) 20-30 H (0-5) /lpf Urine Bacteria (Auto) Negative (Negative) Urine Opiates Screen Neg (Neg) Ur Methadone, Qual Neg (Neg) Urine Barbiturates Neg (Neg) Ur Phencyclidine (PCP) Neg (Neg) U Amphetamin/Meth Scrn Neg (Neg) MDMA (Ecstasy) Screen Neg (Neg) U Benzodiazepines Scrn Neg (Neg) Ur Cocaine Metabolite Neg (Neg) U Marijuana (THC) Screen Neg (Neg) Hepatitis C Ab Screen (Neg) 02/05/19 02/05/19 02/05/19 Range/Units 00:55 00:55 09:29 WBC 9.82 8.16 (4.8-10.8) K/uL RBC 4.28 4.70 (4.2-5.4) M/uL Hgb 13.6 15.1 (12.0-16.0) g/dL Hct 39.1 43.6 (37-47) % MCV 91.4 92.8 (80-100) fL MCH 31.8 32.1 (25-34) pg MCHC 34.8 34.6 (32-36) g/dL RDW Std Deviation 45.1 46.2 (36.4-46.3) fL RDW Coeff of Blas 13.6 13.6 (11.5-14.5) % Plt Count 337 359 (130-400) K/uL MPV 9.5 9.3 (7.4-10.4) fL Immature Gran % (Auto) 0.2 % Neut % (Auto) 52.5 % Lymph % (Auto) 34.1 % [place] % (Auto) 9.4 % Eos % (Auto) 3.3 % Baso % (Auto) 0.5 % Immature Gran # (Auto) 0.02 (0.00-0.02) K/uL Neut # (Auto) 5.16 (1.4-6.5) K/uL Lymph # (Auto) 3.35 (1.2-3.4) K/uL [place] # (Auto) 0.92 H (0.11-0.59) K/uL Eos # (Auto) 0.32 (0-0.5) K/uL Baso # (Auto) 0.05 (0-0.2) K/uL PT 10.7 (9.0-12.0) Seconds INR 1.0 (0.9-1.1) APTT 26.7 (21.0-31.0) Seconds PTT Ratio 1.0 Sodium (136-145) mmol/L Potassium (3.5-5.1) mmol/L Chloride (98-107) mmol/L Carbon Dioxide (21-32) mmol/L Anion Gap (3-11) BUN (7-18) mg/dl Creatinine (0.6-1.2) mg/dl Est Cr Clr Drug Dosing ml/min Est GFR ( Amer) Est GFR (Non-Af Amer) BUN/Creatinine Ratio (10-20) Glucose (70-99) mg/dl Calcium (8.5-10.1) mg/dl Magnesium (1.8-2.4) mg/dl Total Bilirubin (0.2-1) mg/dl AST (15-37) U/L ALT (12-78) U/L Alkaline Phosphatase (45-117) U/L Troponin I Total Protein (6.4-8.2) gm/dl Albumin (3.4-5.0) gm/dl Globulin (2.5-4.0) gm/dl Albumin/Globulin Ratio (0.9-2) TSH (0.300-4.500) uIu/ml Urine Color Urine Appearance (Clear) Urine pH (4.5-7.5) Ur Specific Counselor (1.000-1.030) Urine Protein (Negative) Urine Glucose (UA) (Negative) Urine Ketones (Negative) Urine Blood (Negative) Urine Nitrite (Negative) Urine Bilirubin (Negative) Urine Urobilinogen (Negative) Ur Leukocyte Esterase (Negative) Urine WBC (Auto) (0-5) /hpf Urine RBC (Auto) (0-4) /hpf U Hyaline Cast (Auto) (0-5) /lpf U Epithel Cells (Auto) (0-5) /lpf Urine Bacteria (Auto) (Negative) Urine Opiates Screen (Neg) Ur Methadone, Qual (Neg) Urine Barbiturates (Neg) Ur Phencyclidine (PCP) (Neg) U Amphetamin/Meth Scrn (Neg) MDMA (Ecstasy) Screen (Neg) U Benzodiazepines Scrn (Neg) Ur Cocaine Metabolite (Neg) U Marijuana (THC) Screen (Neg) Hepatitis C Ab Screen (Neg) 02/05/19 02/05/19 02/05/19 Range/Units 09:29 10:57 20:27 WBC (4.8-10.8) K/uL RBC (4.2-5.4) M/uL Hgb (12.0-16.0) g/dL Hct (37-47) % MCV (80-100) fL MCH (25-34) pg MCHC (32-36) g/dL RDW Std Deviation (36.4-46.3) fL RDW Coeff of Blas (11.5-14.5) % Plt Count (130-400) K/uL MPV (7.4-10.4) fL Immature Gran % (Auto) % Neut % (Auto) % Lymph % (Auto) % [place] % (Auto) % Eos % (Auto) % Baso % (Auto) % Immature Gran # (Auto) (0.00-0.02) K/uL Neut # (Auto) (1.4-6.5) K/uL Lymph # (Auto) (1.2-3.4) K/uL [place] # (Auto) (0.11-0.59) K/uL Eos # (Auto) (0-0.5) K/uL Baso # (Auto) (0-0.2) K/uL PT 10.3 (9.0-12.0) Seconds INR 1.0 (0.9-1.1) APTT 43.7 H (21.0-31.0) Seconds PTT Ratio 1.6 Sodium 140 138 (136-145) mmol/L Potassium 3.6 4.0 (3.5-5.1) mmol/L Chloride 110 H 107 (98-107) mmol/L Carbon Dioxide 20 L 22 (21-32) mmol/L Anion Gap 9.0 9.0 (3-11) BUN 9 12 (7-18) mg/dl Creatinine 0.76 0.83 (0.6-1.2) mg/dl Est Cr Clr Drug Dosing 57.6 52.7 ml/min Est GFR ( Amer) 94.7 85.2 Est GFR (Non-Af Amer) 81.7 73.5 BUN/Creatinine Ratio 11.4 14.5 (10-20) Glucose 112 H 91 (70-99) mg/dl Calcium 9.3 8.5 (8.5-10.1) mg/dl Magnesium 2.1 (1.8-2.4) mg/dl Total Bilirubin (0.2-1) mg/dl AST (15-37) U/L ALT (12-78) U/L Alkaline Phosphatase (45-117) U/L Troponin I 3.430 H* Total Protein (6.4-8.2) gm/dl Albumin (3.4-5.0) gm/dl Globulin (2.5-4.0) gm/dl Albumin/Globulin Ratio (0.9-2) TSH (0.300-4.500) uIu/ml Urine Color Urine Appearance (Clear) Urine pH (4.5-7.5) Ur Specific Counselor (1.000-1.030) Urine Protein (Negative) Urine Glucose (UA) (Negative) Urine Ketones (Negative) Urine Blood (Negative) Urine Nitrite (Negative) Urine Bilirubin (Negative) Urine Urobilinogen (Negative) Ur Leukocyte Esterase (Negative) Urine WBC (Auto) (0-5) /hpf Urine RBC (Auto) (0-4) /hpf U Hyaline Cast (Auto) (0-5) /lpf U Epithel Cells (Auto) (0-5) /lpf Urine Bacteria (Auto) (Negative) Urine Opiates Screen (Neg) Ur Methadone, Qual (Neg) Urine Barbiturates (Neg) Ur Phencyclidine (PCP) (Neg) U Amphetamin/Meth Scrn (Neg) MDMA (Ecstasy) Screen (Neg) U Benzodiazepines Scrn (Neg) Ur Cocaine Metabolite (Neg) U Marijuana (THC) Screen (Neg) Hepatitis C Ab Screen (Neg) Imaging Data Radiologist's Impression: Radiology results as stated below per my review and the radiologist's interpretation: XR chest 1V portable HISTORY: 68 years-old Female SYNCOPE acute syncope COMPARISON: Chest radiograph 01/14/2019 TECHNIQUE: Portable AP view of the chest FINDINGS: Cardiomediastinal and hilar silhouettes are within normal limits. Calcification of the thoracic aortic arch. Ill-defined opacity about the right lung apex measures over 2 cm. No pneumothorax, pleural effusion or overt pulmonary edema. Degenerative changes of the shoulders and spine. IVC filter noted. IMPRESSION: 1. No acute process. 2. Ill-defined opacity of the right upper lung may be secondary to summation density with adjacent anterior right first rib. This could correlated with oblique images to exclude underlying pulmonary lesion. The above report was generated using voice recognition software. It may contain grammatical, syntax or spelling errors. Electronically signed by: Abhi Lees M.D. 02/04/2019 3:04 PM ECG Data Attestation: I personally reviewed and interpreted this ECG as follows: Indication: syncope Rate (beats per minute): 83 Rhythm: normal sinus Findings: no acute ischemic change and no ectopy Blood Pressure Blood Pressure Findings: Elevated blood pressure Blood Pressure Disposition: further management by hospitalist FELICIA Narrative This pt was evaluated and appeared to be in no distress. IV access was obtained and lab work was drawn. EKG was performed and reveals a NSR, no acute ischemia. IVF were initiated. CXR reveals no acute process. Lab work is significant for elevated troponin. Pt has no C/P and initially no c/o palpitations prior to the incident. Pt was given ASA po and hydralazine IV for hypertension. Pt was d/w the hospitalist service for further management. Impression & Plan Non-ST elevation MD (NSTEMI), Elevated troponin Discharge Plan Visit Data *Final* Discharge Date/Time: 02/04/19 17:29 Chief Complaint: Syncope (Near Syncope) ED Provider: Chana Thorpe Discharge Problem: Non-ST elevation MD (NSTEMI), Elevated troponin Patient Disposition: Admitted As Inpatient Discharge Instructions Interventions: ED Discharge Assessment Last Done: 02/04/19 17:29 The scribe's documentation has been prepared under my direction and personally reviewed by me in its entirety. I confirm that the note above accurately reflects all work, treatment, procedures, and medical decision making performed by me.
[2019-02-04] MEDS ORDERED: ALUMINUM/MAGNESIUM SUSP 30 ML UDC PO PRN (18:20)
[2019-02-04] MEDS ORDERED: POLYETHYLENE (MIRALAX) 17 GM PACK PO PRN (18:20)
[2019-02-04] MEDS ORDERED: ACETAMINOPHEN 325 MG TAB PO PRN (18:20)
[2019-02-04] MEDS ORDERED: HydrALAZINE HCL 20 MG/ML VIAL IV PRN (18:20)
[2019-02-04] MEDS ORDERED: MAGNESIUM HYDROXIDE SUSP 30 ML UDC PO PRN (18:20)
[2019-02-04] MEDS ORDERED: ONDANSETRON INJ 2 MG/ML 2 ML VIAL IV PRN (18:20)
[2019-02-04 19:10] LABS: Potassium 3.6 mmol/L (3.5-5.1)
[2019-02-04 19:23] LABS: Magnesium 2.1 mg/dl (1.8-2.4)
[2019-02-04 19:24] LABS: Troponin I 2.07 ng/ml (0-0.045)
[2019-02-04] MEDS: CARVEDILOL 12.5 MG TAB PO SCH (20:31)
[2019-02-04] MEDS: LOSARTAN POTASSIUM 25 MG TAB PO SCH (20:57)
[2019-02-04 22:18] LABS: Appearance Urine Clear (Clear); Bacteria Urine Automated Negative (Negative); Bilirubin Urine Negative (Negative); Blood Urine Negative (Negative); Color Urine Yellow; Epithelial Cell Urine Auto 20-30 /lpf (0-5); Glucose Urine UA Negative (Negative); Ketones Urine Trace (Negative); Leukocyte Esterase Urine Trace (Negative); Nitrite Urine Negative (Negative); Protein Urine Negative (Negative); RBC Urine Automated 0-4 /hpf (0-4); Specific Gravity Urine 1.008 (1.000-1.030); Urobilinogen Urine Negative (Negative); pH Urine 7.5 (4.5-7.5)
[2019-02-04 22:34] LABS: Amphetamines+Metham, Urine Neg (Neg); Barbiturates, Urine Neg (Neg); Benzodiazepine, Urine Neg (Neg); Cocaine, Urine Neg (Neg); MDMA (Ecstacy), Urine Neg (Neg); Methadone, Urine Neg (Neg); Opiate, Urine Neg (Neg); Phencyclidine, Urine Neg (Neg)
[2019-02-05] MEDS ORDERED: Heparin IV Standard *NO* Bolus IV ONE (00:12)
[2019-02-05] MEDS ORDERED: Heparin Adult STANDARD Wt-Based Dextrose 5% 25,000 units/500 mL IV SCH (00:45)
[2019-02-05 01:22] LABS: Basophils # (auto) 0.05 K/uL (0-0.2); Basophils % (auto) 0.5 %; Eosinophils # (auto) 0.32 K/uL (0-0.5); Eosinophils % (auto) 3.3 %; Hematocrit (blood only) 39.1 % (37-47); Hemoglobin 13.6 g/dL (12.0-16.0); Immature Granulocytes # (auto) 0.02 K/uL (0.00-0.02); Immature Granulocytes % (auto) 0.2 %; Lymphocytes # (auto) 3.35 K/uL (1.2-3.4); Lymphocytes % (auto) 34.1 %; Mean Corpuscular Volume 91.4 fL (80-100); Mean Platelet Volume 9.5 fL (7.4-10.4); Monocytes # (auto) 0.92 K/uL (0.11-0.59); Monocytes % (auto) 9.4 %; Neutrophils # (auto) 5.16 K/uL (1.4-6.5); Neutrophils % (auto) 52.5 %; Platelet Count 337 K/uL (130-400); RDW Coefficient of Variation 13.6 % (11.5-14.5); RDW Standard Deviation 45.1 fL (36.4-46.3); Red Blood Count 4.28 M/uL (4.2-5.4); White Blood Count 9.82 K/uL (4.8-10.8)
[2019-02-05 01:36] LABS: Partial Thromboplastin Time 26.7 Seconds (21.0-31.0); Prothrombin Time 10.7 Seconds (9.0-12.0)
[2019-02-05 01:50] LABS: Mean Corpuscular Hgb Conc 34.8 g/dL (32-36)
[2019-02-05] MEDS ORDERED: LORazepam 0.25 MG/0.5 ML VIAL IV PRN (04:33)
[2019-02-05] MEDS: DOCUSATE SODIUM 100 MG CAP PO SCH ×2 (08:06→21:41)
[2019-02-05] MEDS: CARVEDILOL 12.5 MG TAB PO SCH ×2 (08:06→21:41)
[2019-02-05] MEDS: NICOTINE 21 MG/24 HR TDSY TD SCH ×2 (08:06→08:48)
[2019-02-05] MEDS: LOSARTAN POTASSIUM 25 MG TAB PO SCH (08:47)
[2019-02-05] MEDS ORDERED: ASPIRIN 81 MG CHEW PO SCH (09:00)
[2019-02-05 09:40] LABS: Hematocrit (blood only) 43.6 % (37-47); Hemoglobin 15.1 g/dL (12.0-16.0); Mean Corpuscular Hgb Conc 34.6 g/dL (32-36); Mean Corpuscular Volume 92.8 fL (80-100); Mean Platelet Volume 9.3 fL (7.4-10.4); Platelet Count 359 K/uL (130-400); RDW Coefficient of Variation 13.6 % (11.5-14.5); RDW Standard Deviation 46.2 fL (36.4-46.3); White Blood Count 8.16 K/uL (4.8-10.8)
[2019-02-05 09:55] LABS: BUN Creatinine Ratio 11.4 (10-20); Calcium 9.3 mg/dl (8.5-10.1); Creatinine Clr Calc Pharmacy 57.6 ml/min; Est GFR (African American) 94.7; Est GFR (Non-African American) 81.7; Potassium 3.6 mmol/L (3.5-5.1)
[2019-02-05 10:04] LABS: Troponin I 3.43 ng/ml (0-0.045)
[2019-02-05 11:17] LABS: Partial Thromboplastin Ratio 1.6; Partial Thromboplastin Time 43.7 Seconds (21.0-31.0); Prothrombin Time 10.3 Seconds (9.0-12.0)
[2019-02-05] MEDS ORDERED: HEPARIN IV BOLUS 2,000 UNITS in SYRINGE 0 ML IV ONE (12:15)
[2019-02-05] MEDS ORDERED: LOSARTAN POTASSIUM 50 MG TAB PO ONE (14:59)
[2019-02-05] MEDS ORDERED: AMLODIPINE BESYLATE 5 MG TAB PO SCH (15:00)
[2019-02-05] MEDS ORDERED: SODIUM CHLORIDE 0.9% 1000ML 1,000 ML IV SCH (15:15)
--- NOTE | 2019-02-05 15:32 | Consultation Report ---
DATE OF CONSULTATION: 02/05/2019 INPATIENT CARDIOLOGY CONSULTATION CONSULTATION REQUESTED BY: Dr. Esteban. REASON FOR CONSULTATION: Hypertensive urgency. HISTORY OF PRESENT ILLNESS: Mrs. Miller is a 68-year-old woman who presented to [facility] on 02/04/2019 with complaints of lightheadedness and syncopal spell. The patient states that prior to presentation, she was walking around the neighborhood and is having some difficulty getting into her apartment, she is unable to elaborate. She then walked to a local grocery store to get some items she needed; however, walking in the heat, she started feeling very faint, lightheaded and dizzy. She sat down on the bench and thinks she might have blacked out for a few seconds. At that time, she was also felt her heart racing and numbness in her bilateral upper extremities. Upon presentation to the Emergency Room, she was given IV fluids and found to be significantly hypertensive and was given aspirin, hydralazine and metoprolol. She was admitted to telemetry. Her blood pressure improved after appropriate adjustments were made by the primary team and currently she states that she just feels horrible and worn out all over, but denies any recurrences of palpitations, shortness of breath, chest pain, lightheadedness, dizziness, or syncope. Of note, the patient had a recent admission where she was worked up for palpitations by my colleague and was unremarkable; however, metoprolol was up titrated. PAST SURGICAL HISTORY: Denies. MEDICAL ILLNESSES: 1. Schizoaffective disorder. 2. Bipolar disorder. 3. Hypertension with history of hypertensive urgency. 4. Polysubstance abuse. 5. Tobacco abuse. 6. COPD. 7. Posttraumatic stress disorder. FAMILY HISTORY: Noncontributory. SOCIAL HISTORY: The patient is a lifelong smoker, continues to smoke. Again, history of polysubstance abuse. REVIEW OF SYSTEMS: As per HPI. All other review of systems reviewed and negative at this time. ALLERGIES: 1. ATROPINE. 2. CLONIDINE. 3. DIPHENHYDRAMINE. 4. HYOSCYAMINE. 5. LABETALOL. 6. PHENOBARBITAL. 7. PREDNISONE. 8. SCOPOLAMINE. 9. ENOXAPARIN. 10. LEVOFLOXACIN. 11. TRAMADOL. 11. WARFARIN. 12. CHLORPROMAZINE. 13. PENICILLIN. 14. NAPROXEN. 15. MORPHINE. 16. ASPIRIN 17. CODEINE. 18. DICYCLOMINE. 19. IBUPROFEN. 20. AMITRIPTYLINE. 21. LISINOPRIL. 22. NITROFURANTOIN. MEDICATIONS CURRENTLY: 1. Aspirin 81 mg daily. 2. Carvedilol 12.5 mg b.i.d. 3. Losartan 25 mg daily. PHYSICAL EXAMINATION: VITALS: Temperature 36.6, pulse 84, respiratory rate 12, blood pressure 134/82. GENERAL: Awake, alert, oriented x3, tangential thought processes and speech patterns, mildly anxious. HEENT: Normocephalic, atraumatic. Pupils equal, round, and reactive to light and accommodation. Extraocular muscles intact. Anicteric sclerae. Moist mucous membranes. NECK: No JVD, no bruit. CARDIOVASCULAR: Regular. Positive S4. Normal S1 and S2. No S3. No murmurs or rubs. PULMONARY: Clear to auscultation bilaterally. No rales, rhonchi, or wheezing. ABDOMEN: Bowel sounds x4, soft. No rebound, guarding, tenderness, or organomegaly. EXTREMITIES: No clubbing, cyanosis or edema. +2 pedal pulses bilaterally. SKIN: Warm and dry. TEST RESULTS: A 2D echocardiogram performed 01/05/2013 shows normal LV chamber size with mild concentric LVH, normal LV systolic function with normal wall motion, EF 65-70%, focal calcification of the posterior mitral valve leaflet without mitral regurgitation or stenosis, grade 1 diastolic dysfunction. LABORATORY STUDIES OF SIGNIFICANCE: Troponin initially of 1.3, then 2, then 4.6, then 3.4. IMPRESSION: 1. Questionable syncopal spell with possible heat exhaustion. 2. Hypertensive urgency, improving. 3. Troponin elevation, likely secondary to heat exhaustion. 4. Schizoaffective disorder, declining psychiatric reevaluation. 5. Posttraumatic stress disorder. 6. Anxiety. RECOMMENDATIONS: Ms. Miller was counseled given the fact that she is not having any chest pain at this time, and given the clinical context, I believe her troponin elevation is likely secondary to peripheral muscle breakdown from heat exhaustion, so she has received appropriate IV fluids and appropriate medication changes made to her antihypertensive regimen. She is still hypertensive at this time, so I will give her another 50 mg of losartan now and likely increased to 100 in the a.m. We will repeat a limited echocardiogram to evaluate for any wall motion abnormalities and should that be unremarkable, consideration could be given to stress testing as an outpatient, once her blood pressure stabilizes, to complete an ischemic workup. Otherwise, smoking cessation was advised.
[2019-02-05] MEDS ORDERED: LACTATED RINGER'S 1,000 ML IV ONE (20:01)
--- NOTE | 2019-02-05 20:03 | Hospitalist Progress Note ---
Date of Service February 05, 2019 Subjective SBP noted to be 80s as per RN. Patient complaining of dizziness symptoms. AP Hypotension likely secondary to antihypertensive medications Initial admission for hypertensive urgency. IVF Hold Losartan for now. Continue Coreg, may need to decrease dose if with recurrent hypotensive episodes. Will relay to AM provider. Results & Data Vital Signs (Past 12 Hours) Vital Signs Temp Pulse Resp BP BP Pulse Ox 02/05/19 19:41 37.1 C 74 20 59/41 L 81/54 L 98 02/05/19 15:28 36.3 C L 66 20 99/69 L 98
[2019-02-05 21:19] LABS: BUN Creatinine Ratio 14.5 (10-20); Calcium 8.5 mg/dl (8.5-10.1); Creatinine Clr Calc Pharmacy 52.7 ml/min; Est GFR (African American) 85.2; Est GFR (Non-African American) 73.5; Magnesium 2.1 mg/dl (1.8-2.4)
--- NOTE | 2019-02-05 21:28 | Hospitalist Progress Note ---
Date of Service February 05, 2019 Assessment & Plan (1) Hypertensive urgency: History of labile hypertension. Patient may not always be compliant with her antihypertensive medications. BP elevated in ED. Follow and titrate therapy. (2) Elevated troponin: Serum troponin initially 1.29 and chirag as high as 4.57. Troponin now declining. No acute EKG changes. Chronic non-exertional chest pain. Cardiology consulted. Echocardiogram did not show any segmental wall motion abnormalities. Probable demand ischemia from hypertensive urgency. (3) Pre-syncope: Presented to ED after episode of near syncope. Elevated blood pressure as discussed below. Monitor for arrhythmias. (4) Abnormal CXR: Portable chest x-ray in ED demonstrated possible density in right upper lobe. Patient has history of smoking. Will need radiographic follow-up. (5) Schizoaffective disorder: Patient does not wish to be seen by Psychiatry. (6) DVT prophylaxis: Prior history of VTE, status post IVC filter. Initially initially received IV heparin for elevated troponin. Heparin discontinued. Reported history of allergy to enoxaparin. SCDs, ambulate. (7) Discharge planning issues: Anticipated discharge to home. Subjective Recheck for multiple problems. Patient seen in their room around 11:20. Admitted yesterday with hypertensive urgency, chest pain, and other problems. Patient indicates that she is under a lot of stress. She has chronic chest pain, abdominal pain, and musculoskeletal pain. Chest pain is not exertional in nature. She states that she hurts all over and feels that rigor mortis has already set in. Chronic problems with her bowels with frequent constipation. Has not moved her bowels for a few days is hoping that a cup of coffee will help. Review of Systems: Constitutional- no fever. Cardiac- as noted above. Pulmonary- no cough or SOB. GI- as noted above. - no urinary symptoms. Otherwise, as noted above. Physical Exam Constitutional: no acute distress Respiratory: no respiratory distress Auscultation: lungs clear to auscultation bilaterally Cardiovascular: Rate/Rhythm: regular rate and regular rhythm Heart Sounds: no gallop, no murmur and no cardiac rub Vessels: no JVD Extremities: no calf tenderness and no edema Gastrointestinal (Abdomen): normal bowel sounds, soft, nontender, no hepatosplenomegaly Skin: no rashes, warm and dry Psychiatric: Orientation: alert and oriented x 3 Affect: + anxious affect Thought Process: + flight of ideas Results & Data Vital Signs (Past 12 Hours) Vital Signs Temp Pulse Resp BP BP Pulse Ox 02/05/19 19:41 37.1 C 74 20 59/41 L 81/54 L 98 02/05/19 15:28 36.3 C L 66 20 99/69 L 98 Laboratory Results Laboratory Results - last 24 hr 02/04/19 02/04/19 02/04/19 21:43 21:43 22:50 WBC RBC Hgb Hct MCV MCH MCHC RDW Std Deviation RDW Coeff of Blas Plt Count MPV Immature Gran % (Auto) Neut % (Auto) Lymph % (Auto) [place] % (Auto) Eos % (Auto) Baso % (Auto) Immature Gran # (Auto) Neut # (Auto) Lymph # (Auto) [place] # (Auto) Eos # (Auto) Baso # (Auto) PT INR APTT PTT Ratio Sodium Potassium Chloride Carbon Dioxide Anion Gap BUN Creatinine Est Cr Clr Drug Dosing Est GFR ( Amer) Est GFR (Non-Af Amer) BUN/Creatinine Ratio Glucose Calcium Magnesium Troponin I 4.570 H* Urine Color Yellow Urine Appearance Clear Urine pH 7.5 Ur Specific [place] 1.008 Urine Protein Negative Urine Glucose (UA) Negative Urine Ketones Trace H Urine Blood Negative Urine Nitrite Negative Urine Bilirubin Negative Urine Urobilinogen Negative Ur Leukocyte Esterase Trace H Urine WBC (Auto) 1-5 Urine RBC (Auto) 0-4 U Hyaline Cast (Auto) 1-5 U Epithel Cells (Auto) 20-30 H Urine Bacteria (Auto) Negative Urine Opiates Screen Neg Ur Methadone, Qual Neg Urine Barbiturates Neg Ur Phencyclidine (PCP) Neg U Amphetamin/Meth Scrn Neg MDMA (Ecstasy) Screen Neg U Benzodiazepines Scrn Neg Ur Cocaine Metabolite Neg U Marijuana (THC) Screen Neg 02/05/19 02/05/19 02/05/19 00:55 00:55 09:29 WBC 9.82 8.16 RBC 4.28 4.70 Hgb 13.6 15.1 Hct 39.1 43.6 MCV 91.4 92.8 MCH 31.8 32.1 MCHC 34.8 34.6 RDW Std Deviation 45.1 46.2 RDW Coeff of Blas 13.6 13.6 Plt Count 337 359 MPV 9.5 9.3 Immature Gran % (Auto) 0.2 Neut % (Auto) 52.5 Lymph % (Auto) 34.1 [place] % (Auto) 9.4 Eos % (Auto) 3.3 Baso % (Auto) 0.5 Immature Gran # (Auto) 0.02 Neut # (Auto) 5.16 Lymph # (Auto) 3.35 [place] # (Auto) 0.92 H Eos # (Auto) 0.32 Baso # (Auto) 0.05 PT 10.7 INR 1.0 APTT 26.7 PTT Ratio 1.0 Sodium Potassium Chloride Carbon Dioxide Anion Gap BUN Creatinine Est Cr Clr Drug Dosing Est GFR ( Amer) Est GFR (Non-Af Amer) BUN/Creatinine Ratio Glucose Calcium Magnesium Troponin I Urine Color Urine Appearance Urine pH Ur Specific [place] Urine Protein Urine Glucose (UA) Urine Ketones Urine Blood Urine Nitrite Urine Bilirubin Urine Urobilinogen Ur Leukocyte Esterase Urine WBC (Auto) Urine RBC (Auto) U Hyaline Cast (Auto) U Epithel Cells (Auto) Urine Bacteria (Auto) Urine Opiates Screen Ur Methadone, Qual Urine Barbiturates Ur Phencyclidine (PCP) U Amphetamin/Meth Scrn MDMA (Ecstasy) Screen U Benzodiazepines Scrn Ur Cocaine Metabolite U Marijuana (THC) Screen 02/05/19 02/05/19 02/05/19 09:29 10:57 20:27 WBC RBC Hgb Hct MCV MCH MCHC RDW Std Deviation RDW Coeff of Blas Plt Count MPV Immature Gran % (Auto) Neut % (Auto) Lymph % (Auto) [place] % (Auto) Eos % (Auto) Baso % (Auto) Immature Gran # (Auto) Neut # (Auto) Lymph # (Auto) [place] # (Auto) Eos # (Auto) Baso # (Auto) PT 10.3 INR 1.0 APTT 43.7 H PTT Ratio 1.6 Sodium 140 138 Potassium 3.6 4.0 Chloride 110 H 107 Carbon Dioxide 20 L 22 Anion Gap 9.0 9.0 BUN 9 12 Creatinine 0.76 0.83 Est Cr Clr Drug Dosing 57.6 52.7 Est GFR ( Amer) 94.7 85.2 Est GFR (Non-Af Amer) 81.7 73.5 BUN/Creatinine Ratio 11.4 14.5 Glucose 112 H 91 Calcium 9.3 8.5 Magnesium 2.1 Troponin I 3.430 H* Urine Color Urine Appearance Urine pH Ur Specific [place] Urine Protein Urine Glucose (UA) Urine Ketones Urine Blood Urine Nitrite Urine Bilirubin Urine Urobilinogen Ur Leukocyte Esterase Urine WBC (Auto) Urine RBC (Auto) U Hyaline Cast (Auto) U Epithel Cells (Auto) Urine Bacteria (Auto) Urine Opiates Screen Ur Methadone, Qual Urine Barbiturates Ur Phencyclidine (PCP) U Amphetamin/Meth Scrn MDMA (Ecstasy) Screen U Benzodiazepines Scrn Ur Cocaine Metabolite U Marijuana (THC) Screen ECG Additional Comments: EKG performed this morning at 0805 reviewed and demonstrated normal sinus rhythm at 88/minute, no acute ST or T wave abnormalities. (1) Schizoaffective disorder Schizoaffective disorder type: unspecified Qualified Code(s): F25.9 - Schizo affective disorder, unspecified
[2019-02-05] MEDS ORDERED: NICOTINE POLACRILEX 2 MG GUM MT PRN (21:41)
[2019-02-05] MEDS ORDERED: POLYETHYLENE (MIRALAX) 17 GM PACK PO PRN (21:41)
[2019-02-06] MEDS ORDERED: LOSARTAN POTASSIUM 50 MG TAB PO SCH (09:00)
--- NOTE | 2019-02-07 04:57 | Discharge Summary ---
Date of Service Date of Admission: 02/04/19 Date of Discharge: 02/06/19 Admission HPI Per Admitting Provider This is a 68-year-old female who has a significant past medical history of schizoaffective disorder, bipolar type I, PTSD anxiety, hypertension, IBS, COPD, history of DVT status post IVCF, history of suicide attempt by APAP who presents to [facility] ED secondary to a presyncopal event that happened prior to arrival. ROS difficult to obtain secondary to patient overall feeling anxious and being a poor historian. Apparently patient was unable to get into her apartment today and spent most of the day outside in the heat in which she felt slightly dehydrated. While waiting to get back into her apartment she decided to walk over to the [employer] in [place]. She was standing in line and leaning over her cart when she felt faint, "like I am anemic and my face was white." Because of this she opted to sit on bench and lie down. She feels like things, "blacked out." She recalls all events prior to sitting on bench and when she was lying on bench. Episode of blacking out lasted a couple seconds to 1 minute. At the time of event she also felt her, "heart was pounding racing real fast," facial numbness, bilateral arm numbness." She denies any recent illness, fever, chills, sweats, dizziness, chest pain, palpitations, shortness of breath at rest, abdominal pain, change in her bowel or urinary habits. She states she gets short of breath on a daily basis doing routine activities but denies shortness of breath at rest, orthopnea or PND. She denies any chest pain on exertion. She denies any lower extremity edema, although she does have chronic left lower extremity edema due to prior history of DVT. Patient states she was compliant with her medications and took her metoprolol this morning 100 mg. Of significance patient has had recent hospital/ER visits. On 12/21 she presented with chest pain and uncontrolled hypertension and was discharged home. On 12/22 she was seen in the ER for uncontrolled hypertension. On 01/14 she was admitted to [facility] secondary to chest pain. At that time she underwent cardiac work-up which her troponins remained unchanged, EKG revealed normal sinus rhythm. Echocardiogram revealed EF 65 to 70% with a grade 1 diastolic dysfunction, focal calcification of the posterior MV leaflet, mild concentric LVH. At this time patient had recently been on metoprolol tartrate 50 mg twice daily and it was titrated to metoprolol tartrate 100 mg in the a.m. and 50 mg in the p.m. She did not undergo any stress testing as it was felt she was unable to tolerate exercise stress test and patient opted to not undergo chemical stress test. She does note that her father was hospitalized at age 66, "my current age," and of heart attack. Admission Exam Per Admitting Provider Gen: Petite, female, sitting up in bed, appears anxious, sunglasses in place, does not always answer questions appropriately, hard to direct conversation Head: Normocephalic, Atraumatic Eyes: Sclera normal, sunglasses in place patient refuses to take off ENT: Gross hearing intact, normal pharynx, mucous membranes dry Neck: supple, no adenopathy, No JVD, no bruit, Resp: Clear to auscultation b/l, no wheeze, rales, rhonchi. 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 Extremities: No edema bilaterally Skin: warm, moist, no rash, negative turgor, cap refill < 2sec Neuro: Alert and oriented x 3, speech normal, anxious mood/affect, cran nerve 2- 12 intact grossly : deferred Principal Diagnosis hypertensive urgency Discharge Data Allergies Allergy/AdvReac Type Severity Reaction Status Date / Time atropine Allergy Severe castillo, hard Verified 02/04/19 15:08 time breathing clonidine Allergy Severe RAISES Unverified 02/04/19 15:08 B.P., ANXIOUSNESS diphenhydramine Allergy Severe "I ALMOST Verified 02/04/19 15:08 ." hyoscyamine Allergy Severe castillo, hard Verified 02/04/19 15:08 time breathing labetalol Allergy Severe selling,loss Verified 02/04/19 15:08 of taste,itch, rash phenobarbital Allergy Severe castillo, hard Verified 02/04/19 15:08 time breathing prednisone Allergy Severe Edema Verified 02/04/19 15:08 face,lips and tongue. scopolamine Allergy Severe castillo, hard Verified 02/04/19 15:08 time breathing enoxaparin Allergy Intermediate RASH Verified 02/04/19 15:08 levofloxacin Allergy Intermediate ARM TURNED Verified 02/04/19 15:08 "FIREY RED" WHEN INFUSED, CLEARED IN A FEW HOURS tramadol Allergy Intermediate blisters Verified 02/04/19 15:08 all over warfarin Allergy Intermediate rash Verified 02/04/19 15:08 chlorpromazine Allergy Mild TOLERATING Verified 02/04/19 15:08 PROLIXIN AT HOME 01/15/08 Penicillins Allergy Mild Unknown Verified 02/04/19 15:08 coumarin Allergy Unknown UNKNOWN Verified 02/04/19 15:08 naproxen Allergy Unknown Unknown Verified 02/04/19 15:08 morphine AdvReac Severe SHOCK;TOLERATES Verified 02/04/19 15:08 DEMEROL aspirin AdvReac Intermediate BLEEDING Verified 02/04/19 15:08 codeine AdvReac Intermediate BP DROPS Verified 02/04/19 15:08 AND PASSES OUT dicyclomine AdvReac Intermediate GI SYMPTOMS Verified 02/04/19 15:08 ibuprofen AdvReac Intermediate BLEEDING Verified 02/04/19 15:08 amitriptyline AdvReac Mild Nausea/vomi Verified 02/04/19 15:08 timg lisinopril AdvReac Mild COUGH Verified 02/04/19 15:08 nitrofurantoin AdvReac Unknown hallucinati Verified 02/04/19 15:08 ng Consultations 02/04/19 16:02 ED Decision to Admit Stat 02/04/19 21:57 Consult Case Management - Discharge Planning Routine 02/05/19 07:41 Consult Cardiology Routine Hospital Course (1) Hypertensive urgency: History of labile hypertension. Patient may not always be compliant with her antihypertensive medications. BP elevated in ED as high as 199/129. BP fell after administration of carvedilol. Pt left AMA before medications could be titrated further. (2) Elevated troponin: Serum troponin initially 1.29 and chirag as high as 4.57. Troponin now declining. No acute EKG changes. Chronic non-exertional chest pain. Cardiology consulted. Echocardiogram did not show any segmental wall motion abnormalities. Probable demand ischemia from hypertensive urgency. (3) Pre-syncope: Presented to ED after episode of near syncope. Elevated blood pressure as discussed below. Monitored for arrhythmias. (4) Abnormal CXR: Portable chest x-ray in ED demonstrated possible density in right upper lobe (mass vs summation). Patient has history of smoking. Will need radiographic follow-up. (5) Schizoaffective disorder: Patient did not wish to be seen by Psychiatry. (6) DVT prophylaxis: Prior history of VTE, status post IVC filter. Initially initially received IV heparin for elevated troponin. Heparin discontinued. Reported history of allergy to enoxaparin. SCDs, ambulate. (7) Discharge planning issues: Patient opted to leave hospital AMA early the morning of 02/06/19. Medical follow-up with Dr. Davalos. Total Time Total Time Spent Total Time Spent (In Minutes): 0 Discharge Plan Discharge Items Patient Disposition: Against Medical Advice Reason For Visit: HTN URGENCY Discharge Diagnosis: hypertensive urgency Discharge Goals: Improve disease control Activity: Resume your previous activity Non-emergency contact: Primary Care Provider Call non-emergency contact if: your symptoms worsen Follow-up/Referrals: Brett Lopez DO [Primary Care Provider] - Diet: Heart Healthy Addtl Provider Instructions: Pt left AMA. Prescriptions: Continued Molasses 1 dose PO DAILY PRN (Reason: Constipation) RF: 0 metoprolol tartrate 50 mg tablet 50 mg PO QPM RF: 0 metoprolol tartrate 50 mg tablet 100 mg PO QAM RF: 0 aspirin [Aspirin Childrens] 81 mg Tablet,Chewable 81 mg PO DAILY RF: 0 Stand-Alone Forms: [facility] Discharge Orders: Left Against Medical Advice (Routine); Ordered 02/06/19 Ordered By: Rico Bruner Admission Data Admit Date/Time: 02/05/19 21:33 Attending Provider: Bonifacio Esteban Admit Provider: Kai Sebastian Primary Care Provider: Brett Lopez Other Providers: Kai Sebastian ; Sam Stubbs Service: Telemetry Medical Other Interventions: Discharge Summary Assessment (RN) Last Done: 02/06/19 01:16 DC Date/Time DO NOT enter until pt leaves facility: 02/06/19 00:30
== END 2019-02-06 00:30 | disposition left against medical advice (07) | DRG 305 ==
LOC: ED 13:49 → 2N 13:49

== ENCOUNTER 2019-03-18 23:08 | Observation (INO) ==
[2019-03-18] MEDS ORDERED: NITROGLYCERIN SL 0.4 MG/TAB TAB SL STA (23:46)
[2019-03-19] MEDS ORDERED: LORazepam 1 MG TAB ONE (00:10)
[2019-03-19 00:23] LABS: Basophils # (auto) 0.04 K/uL (0-0.2); Basophils % (auto) 0.4 %; Hematocrit (blood only) 45.3 % (37-47); Hemoglobin 16.5 g/dL (12.0-16.0); Immature Granulocytes # (auto) 0.01 K/uL (0.00-0.02); Immature Granulocytes % (auto) 0.1 %; Lymphocytes # (auto) 2.21 K/uL (1.2-3.4); Lymphocytes % (auto) 21.4 %; Mean Corpuscular Hemoglobin 32.9 pg (25-34); Mean Corpuscular Hgb Conc 36.4 g/dL (32-36); Mean Corpuscular Volume 90.2 fL (80-100); Monocytes # (auto) 0.67 K/uL (0.11-0.59); Monocytes % (auto) 6.5 %; Neutrophils # (auto) 7.39 K/uL (1.4-6.5); Neutrophils % (auto) 71.6 %; Platelet Count 368 K/uL (130-400); RDW Coefficient of Variation 13.1 % (11.5-14.5); RDW Standard Deviation 43.3 fL (36.4-46.3); Red Blood Count 5.02 M/uL (4.2-5.4); White Blood Count 10.32 K/uL (4.8-10.8)
[2019-03-19] MEDS ORDERED: SODIUM CHLORIDE 0.9% 500 ML IV SCH (00:30)
[2019-03-19 00:41] LABS: Alanine Aminotransferase 23 U/L (12-78); Albumin Level 4.3 gm/dl (3.4-5.0); Aspartate Aminotransferase 11 U/L (15-37); BUN Creatinine Ratio 6.4 (10-20); Blood Urea Nitrogen 6 mg/dl (7-18); Calcium 9.4 mg/dl (8.5-10.1); Carbon Dioxide 26 mmol/L (21-32); Chloride 99 mmol/L (98-107); Creatinine Clr Calc Pharmacy 49.2 ml/min; Est GFR (Non-African American) 58.7; Glucose 97 mg/dl (70-99); Lipase 274 U/L (73-393); Potassium 3.9 mmol/L (3.5-5.1); Sodium 135 mmol/L (136-145)
[2019-03-19 00:46] LABS: Albumin Globulin Ratio 1.2 (0.9-2); Alkaline Phosphatase 103 U/L (45-117); Bilirubin,Total 0.6 mg/dl (0.2-1); Globulin 3.7 gm/dl (2.5-4.0); Troponin I < 0.015 ng/ml (0-0.045)
--- NOTE | 2019-03-19 02:51 | History & Physical Report ---
Date of Service March 19, 2019 Assessment & Plan (1) Left-sided chest pain: Possibly from hypertensive urgency ? Medication compliance Psychiatric illness contributory to symptoms Differentials include pericarditis, recurrent PE (hx PE/DVT status post IVC filter placement) Recurrent syncope rule out orthostasis, seizure disorder Abdominal pain likely secondary to IBS rule out UTI chronic pain/drug dependence as per records Foreign body, left ear ongoing tobacco abuse OBS PCU Titrate Lopressor, consider switching to Coreg if still uncontrolled Trend troponin VQ scan (given vascular access issues precluding gauge [address] needle [address] requisite for CT angiogram study) to rule out PE Follow official CT results (Pericardial fluid ? Pericardial effusion) TTE if official CT shows pericardial fluid Check orthostatic vitals, EEG for recurrent syncopal events Check UA, urine tox Further management pending work-up results Outpatient ENT consult for right ear foreign body extraction if ER provider unsuccessful in removal attempt. Nicotine patch PRN DVT prophylaxis. Arixtra subcu Full code History of Present Illness Primary Care Provider: Brett Lopez History obtained from patient and records. History somewhat difficult to obtain from patient due to rambling account. Medical history significant for history of PE/DVT status post IVC filter placement (off anticoagulation because of adverse reactions to Lovenox and Coumadin), hypertension, bipolar disorder, schizoaffective disorder as per records, anxiety/posttraumatic stress disorder, chronic pain/drug dependence as per records, ongoing tobacco abuse, hx IBS. Recent confinement February 2019 for presyncope, hypertensive urgency. Patient's Lopressor switched to Coreg and losartan during confinement which led to significant hypotension. Patient seen by Cardiology during visit. Patient left hospital AMA. At home, patient went back to Lopressor blood pressure medication regimen prior to confinement. SBP well-controlled usually 1 10-1 20s as per patient. Patient gives history of achy right-sided pain, intermittent dark stools, episodic unwitnessed syncopal events at home the last few weeks. Last night, patient woke up to go to a store to grab some items. She experienced pleuritic left-sided chest pain with shortness of breath, no unusual cough symptoms. She felt like her headache was going to explode. Having difficulty hearing. SBP noted to be 220s upon arrival at the ER. Patient not sure if nitroglycerin worked for her pain. Medical History as above Surgical History : Cystoscopy, IVC filter placement, tonsillectomy Family History : Heart disease, colon cancer, diabetes, psychiatric illness Personal/Social history : Half pack daily, no EtOH abuse, disabled Allergies Allergy/AdvReac Type Severity Reaction Status Date / Time atropine Allergy Severe castillo, hard Verified 03/18/19 23:46 time breathing clonidine Allergy Severe RAISES Unverified 03/18/19 23:46 B.P., ANXIOUSNESS diphenhydramine Allergy Severe "I ALMOST Verified 03/18/19 23:46 ." hyoscyamine Allergy Severe castillo, hard Verified 03/18/19 23:46 time breathing labetalol Allergy Severe selling,loss Verified 03/18/19 23:46 of taste,itch, rash phenobarbital Allergy Severe castillo, hard Verified 03/18/19 23:46 time breathing prednisone Allergy Severe Edema Verified 03/18/19 23:46 face,lips and tongue. scopolamine Allergy Severe castillo, hard Verified 03/18/19 23:46 time breathing enoxaparin Allergy Intermediate RASH Verified 03/18/19 23:46 levofloxacin Allergy Intermediate ARM TURNED Verified 03/18/19 23:46 "FIREY RED" WHEN INFUSED, CLEARED IN A FEW HOURS tramadol Allergy Intermediate blisters Verified 03/18/19 23:46 all over warfarin Allergy Intermediate rash Verified 03/18/19 23:46 chlorpromazine Allergy Mild TOLERATING Verified 03/18/19 23:46 PROLIXIN AT HOME 01/15/08 Penicillins Allergy Mild Unknown Verified 03/18/19 23:46 coumarin Allergy Unknown UNKNOWN Verified 03/18/19 23:46 naproxen Allergy Unknown Unknown Verified 03/18/19 23:46 morphine AdvReac Severe SHOCK;TOLERATES Verified 03/18/19 23:46 DEMEROL aspirin AdvReac Intermediate BLEEDING Verified 03/18/19 23:46 codeine AdvReac Intermediate BP DROPS Verified 03/18/19 23:46 AND PASSES OUT dicyclomine AdvReac Intermediate GI SYMPTOMS Verified 03/18/19 23:46 hydralazine AdvReac Intermediate palpitations Verified 03/19/19 06:19 as per px ibuprofen AdvReac Intermediate BLEEDING Verified 03/18/19 23:46 amitriptyline AdvReac Mild Nausea/vomi Verified 03/18/19 23:46 timg lisinopril AdvReac Mild COUGH Verified 03/18/19 23:46 nitrofurantoin AdvReac Unknown hallucinati Verified 03/18/19 23:46 ng Home Medications Home Medications Medication Instructions Recorded Confirmed Type aspirin [Aspirin Childrens] 81 mg PO DAILY 12/21/18 03/18/19 History metoprolol tartrate 50 mg PO QPM 02/04/19 03/18/19 History metoprolol tartrate 100 mg PO QAM 02/04/19 03/18/19 History Past Med/Surg History Medical History DVT (deep venous thrombosis) (Chronic) Posttraumatic stress disorder (Chronic 01/14/13) COPD (chronic obstructive pulmonary disease) (Chronic) Hypertension (Chronic) Schizoaffective disorder (Chronic 01/22/12) Tobacco abuse (Chronic) H/O drug abuse (Chronic) Hypertensive urgency (Resolved) High blood pressure (Chronic) Surgical History History of cystoscopy (Chronic) History of inferior vena caval filter placement (Chronic) Family History Father Myocardial infarction, Onset Age: 66 Diabetes Mother Stroke Colorectal cancer Other Family history non-contributory Social History Preferred Language: Angolan Communication Ability: Effective Visual Impairment: No Limitations Hearing Ability: Normal Drawer Maker Required: No Beliefs That Will Affect Care: None marital status: Single Current Living Situation: Alone Current Living Situation Comment: Living in apartment in [place] Other Information That Helps Us Care for You: No Feels Safe at Home: Yes Safety Concerns: Feels Safe At This Time Smoking Status: Current some day smoker Tobacco Type: cigarettes ; Cigarettes Per Day: "one pack every 2 weeks ; Do You Dip or Chew Tobacco: No ; Second Hand Exposure: No ; Tobacco Cessation Education Requested by Patient: No Hx Alcohol Use: No Hx Substance Use: No Review of Systems Review of Systems: As per HPI, all 10 systems reviewed, all other ROS negative Physical Exam Physical Exam: GENERAL: uncomfortable, anxious, no respiratory distress SKIN: Normal color, warm HEENT: [place] palpebral conjunctivae, no ptosis, dry buccal mucosa; Impacted cerumen, [place] silicone-like foreign body, NECK : Supple, no tenderness CHEST : Decreased breath sounds , no tenderness HEART : Tachycardic , no obvious murmurs ABDOMEN: Some distention, right-sided abdominal tenderness RECTAL : Intact sphincter, yellow stool (FOBT negative) EXTREMITIES : No LE swelling, IV access sites RLE and LUE, no other conspicuous deformities noted NEUROLOGIC : Coherent, no facial asymmetry, no other gross focality Results & Data Vital Signs (Past 12 Hours) Vital Signs Pulse Pulse Resp BP BP Pulse Ox 03/19/19 01:45 108 H 18 136/88 96 03/19/19 01:00 89 19 155/97 H 98 03/19/19 00:21 108 H 17 140/113 H 95 03/18/19 23:45 92 H 17 99 03/18/19 23:30 98 H 16 204/97 H 99 03/18/19 23:14 101 H 18 221/119 H 98 Laboratory Results Laboratory Results WBC 10.32 K/uL (4.8-10.8) 03/19/19 00:15 RBC 5.02 M/uL (4.2-5.4) 03/19/19 00:15 Hgb 16.5 g/dL (12.0-16.0) H 03/19/19 00:15 Hct 45.3 % (37-47) 03/19/19 00:15 MCV 90.2 fL (80-100) 03/19/19 00:15 MCH 32.9 pg (25-34) 03/19/19 00:15 MCHC 36.4 g/dL (32-36) H 03/19/19 00:15 RDW Std Deviation 43.3 fL (36.4-46.3) 03/19/19 00:15 RDW Coeff of Blas 13.1 % (11.5-14.5) 03/19/19 00:15 Plt Count 368 K/uL (130-400) 03/19/19 00:15 MPV 9.0 fL (7.4-10.4) 03/19/19 00:15 Immature Gran % (Auto) 0.1 % 03/19/19 00:15 Neut % (Auto) 71.6 % 03/19/19 00:15 Lymph % (Auto) 21.4 % 03/19/19 00:15 [place] % (Auto) 6.5 % 03/19/19 00:15 Eos % (Auto) 0.0 % 03/19/19 00:15 Baso % (Auto) 0.4 % 03/19/19 00:15 Immature Gran # (Auto) 0.01 K/uL (0.00-0.02) 03/19/19 00:15 Neut # (Auto) 7.39 K/uL (1.4-6.5) H 03/19/19 00:15 Lymph # (Auto) 2.21 K/uL (1.2-3.4) 03/19/19 00:15 [place] # (Auto) 0.67 K/uL (0.11-0.59) H 03/19/19 00:15 Eos # (Auto) 0.00 K/uL (0-0.5) 03/19/19 00:15 Baso # (Auto) 0.04 K/uL (0-0.2) 03/19/19 00:15 Sodium 135 mmol/L (136-145) L 03/19/19 00:15 Potassium 3.9 mmol/L (3.5-5.1) 03/19/19 00:15 Chloride 99 mmol/L (98-107) 03/19/19 00:15 Carbon Dioxide 26 mmol/L (21-32) 03/19/19 00:15 Anion Gap 10.0 (3-11) 03/19/19 00:15 BUN 6 mg/dl (7-18) L 03/19/19 00:15 Creatinine 1.00 mg/dl (0.6-1.2) 03/19/19 00:15 Est Cr Clr Drug Dosing 49.2 ml/min 03/19/19 00:15 Est GFR ( Amer) 68.0 03/19/19 00:15 Est GFR (Non-Af Amer) 58.7 03/19/19 00:15 BUN/Creatinine Ratio 6.4 (10-20) L 03/19/19 00:15 Glucose 97 mg/dl (70-99) 03/19/19 00:15 Calcium 9.4 mg/dl (8.5-10.1) 03/19/19 00:15 Total Bilirubin 0.6 mg/dl (0.2-1) 03/19/19 00:15 AST 11 U/L (15-37) L 03/19/19 00:15 ALT 23 U/L (12-78) 03/19/19 00:15 Alkaline Phosphatase 103 U/L (45-117) 03/19/19 00:15 Troponin I < 0.015 ng/ml (0-0.045) 03/19/19 00:15 Total Protein 8.0 gm/dl (6.4-8.2) 03/19/19 00:15 Albumin 4.3 gm/dl (3.4-5.0) 03/19/19 00:15 Globulin 3.7 gm/dl (2.5-4.0) 03/19/19 00:15 Albumin/Globulin Ratio 1.2 (0.9-2) 03/19/19 00:15 Lipase 274 U/L (73-393) 03/19/19 00:15 Diagnostic Findings Chest x-ray as per my interpretation no congestion EKG as per my interpretation : Rate 90, NSR, T wave flattening lateral leads, anteroseptal infarct, low voltage CT head initial read: No acute intracranial process. Involutional changes. Encephalomalacia, left frontal lobe. CT abdomen pelvis initial read: Small anterior pericardial fluid. No radiodense gallstones/pancreatitis. Mild fatty liver. IVC filter. Second filter outside IVC at the level of the renal vasculature. No colitis or bowel obstruction. Right groin air.
[2019-03-19] MEDS ORDERED: IOVERSOL 100ml IV PRN (03:19)
--- NOTE | 2019-03-19 03:22 | Emergency Department Note ---
Entered by Eleazar Martines acting as a scribe for History of Present Illness General Chief complaint: Hypertension Stated complaint: SOB, CHEST DISCOMFORT Time Seen by Provider: 03/18/19 23:22 Source: patient and EMS Limitations: patient cooperation (HPI limited secondary to the patient's unwillingness to speak.) History of Present Illness The patient is a 68 y/o female who presents to the ED w/ CC of frequent episodes of losing consciousness. The patient was found on the ground by EMS at her home. They reports they were called because she was short of breath. EMS notes she refused to get up, talk, or move. EMS notes she had a suitcase packed. The patient states she passed out this evening and then woke up and called an ambulance. She reports she cannot ear because "my ears have shut off". The patient notes she has had pain from her left shoulder across her jaw and into her face for a few months now. She reports she called EMS this evening because she has been passing out frequently. The patient notes she has not been eating, but she has been drinking. She denies a history of this before. The patient states she has been doing well she fell in [facility]. She reports she has been taking her medication and saw her doctor last in August. The patient notes she is the one who called EMS. She states no one visited her today at her apartment. The patient repeatedly states "I am sorry". HPI limited secondary to the patient's unwillingness to speak. Home Medications Home Medications Medication Instructions Recorded Confirmed Type aspirin [Aspirin Childrens] 81 mg PO DAILY 12/21/18 03/18/19 History metoprolol tartrate 50 mg PO QPM 02/04/19 03/18/19 History metoprolol tartrate 100 mg PO QAM 02/04/19 03/18/19 History Allergies Allergy/AdvReac Type Severity Reaction Status Date / Time atropine Allergy Severe castillo, hard Verified 03/18/19 23:46 time breathing clonidine Allergy Severe RAISES Unverified 03/18/19 23:46 B.P., ANXIOUSNESS diphenhydramine Allergy Severe "I ALMOST Verified 03/18/19 23:46 ." hyoscyamine Allergy Severe castillo, hard Verified 03/18/19 23:46 time breathing labetalol Allergy Severe selling,loss Verified 03/18/19 23:46 of taste,itch, rash phenobarbital Allergy Severe castillo, hard Verified 03/18/19 23:46 time breathing prednisone Allergy Severe Edema Verified 03/18/19 23:46 face,lips and tongue. scopolamine Allergy Severe castillo, hard Verified 03/18/19 23:46 time breathing enoxaparin Allergy Intermediate RASH Verified 03/18/19 23:46 levofloxacin Allergy Intermediate ARM TURNED Verified 03/18/19 23:46 "FIREY RED" WHEN INFUSED, CLEARED IN A FEW HOURS tramadol Allergy Intermediate blisters Verified 03/18/19 23:46 all over warfarin Allergy Intermediate rash Verified 03/18/19 23:46 chlorpromazine Allergy Mild TOLERATING Verified 03/18/19 23:46 PROLIXIN AT HOME 01/15/08 Penicillins Allergy Mild Unknown Verified 03/18/19 23:46 coumarin Allergy Unknown UNKNOWN Verified 03/18/19 23:46 naproxen Allergy Unknown Unknown Verified 03/18/19 23:46 morphine AdvReac Severe SHOCK;TOLERATES Verified 03/18/19 23:46 DEMEROL aspirin AdvReac Intermediate BLEEDING Verified 03/18/19 23:46 codeine AdvReac Intermediate BP DROPS Verified 03/18/19 23:46 AND PASSES OUT dicyclomine AdvReac Intermediate GI SYMPTOMS Verified 03/18/19 23:46 ibuprofen AdvReac Intermediate BLEEDING Verified 03/18/19 23:46 amitriptyline AdvReac Mild Nausea/vomi Verified 03/18/19 23:46 timg lisinopril AdvReac Mild COUGH Verified 03/18/19 23:46 nitrofurantoin AdvReac Unknown hallucinati Verified 03/18/19 23:46 ng Past Med/Surg History Medical History DVT (deep venous thrombosis) (Chronic) Posttraumatic stress disorder (Chronic 01/14/13) COPD (chronic obstructive pulmonary disease) (Chronic) Hypertension (Chronic) Schizoaffective disorder (Chronic 01/22/12) Tobacco abuse (Chronic) H/O drug abuse (Chronic) Hypertensive urgency (Resolved) High blood pressure (Chronic) Surgical History History of cystoscopy (Chronic) History of inferior vena caval filter placement (Chronic) Family History Father Myocardial infarction, Onset Age: 66 Diabetes Mother Stroke Colorectal cancer Other Family history non-contributory Social History Preferred Language: Arabic Communication Ability: Effective Visual Impairment: No Limitations Hearing Ability: Normal Bobbin Marker Required: No Beliefs That Will Affect Care: None marital status: Single Current Living Situation: Alone Current Living Situation Comment: Living in apartment in [place] Feels Safe at Home: Declines to Answer Smoking Status: Unknown if ever smoked Hx Alcohol Use: No Hx Substance Use: No Review of Systems Other (HPI limited secondary to the patient's unwillingness to speak.) Physical Exam Vital Signs Vital Signs - 24 hr 03/18/19 23:14 03/18/19 23:30 03/18/19 23:45 Sepsis Recent Fever Within 48 Hours No Sepsis New/Unexplained Change in Mental Status No Sepsis Action Taken by Nursing No Action Required Pulse Rate 101 H 92 H Pulse Rate [Apical] 98 H Pulse Rhythm Regular Regular Pulse Rhythm [Apical] Regular Respiratory Rate 18 16 17 Respiratory Effort / Characteristics Non-Labored Spontaneous Non-Labored Spontaneous Respiratory Depth Normal Normal Respiratory Pattern Regular Regular Blood Pressure 221/119 H Blood Pressure [Right Arm] 204/97 H Blood Pressure Mean 153 Blood Pressure Mean [Right Arm] 132 Pulse Oximetry 98 99 99 Oxygen Delivery Method Room Air Room Air Room Air 03/19/19 00:21 03/19/19 01:00 03/19/19 01:45 Sepsis Recent Fever Within 48 Hours Sepsis New/Unexplained Change in Mental Status Sepsis Action Taken by Nursing Pulse Rate Pulse Rate [Apical] 108 H 89 108 H Pulse Rhythm Pulse Rhythm [Apical] Regular Regular Regular Respiratory Rate 17 19 18 Respiratory Effort / Characteristics Non-Labored Spontaneous Spontaneous Non-Labored Spontaneous Respiratory Depth Normal Normal Respiratory Pattern Regular Regular Regular Blood Pressure Blood Pressure [Right Arm] 140/113 H 155/97 H 136/88 Blood Pressure Mean Blood Pressure Mean [Right Arm] 122 116 104 Pulse Oximetry 95 98 96 Oxygen Delivery Method Room Air Room Air Room Air General: The patient appears to be uncomfortable and finds it difficult to answer questions. After a lengthy questioning, she was able to speak. HEENT: Head - normocephalic and atraumatic Pupils are equal, round, and reactive to light. Extraocular eye muscles are intact, and sclera are anicteric. Nose - moist nasal mucosa without discharge. Mouth - moist buccal mucosa. Oropharynx is nonerythematous and there is no tonsillar exudate or edema noted. Ears-the right ear is impacted with cerumen. Left ear has a foreign object in it Neck: Supple; no JVD, nuchal rigidity, cervical lymphadenopathy. Heart: Tachycardic rate and regular rhythm. There is a normal S1 and S2 with no murmurs, clicks, or gallops appreciated. Lungs: Clear to auscultation bilaterally with no wheezes, rales, or rhonchi. Abdomen: Soft, completely nontender, nondistended, with good bowel sounds. There are no palpable pulsatile masses or hepatosplenomegaly. There is no guarding, rigidity, or rebound noted. Extremities: No evidence of cyanosis, clubbing, or edema. There are easily palpable peripheral pulses. Skin: warm and dry with good turgor and no rashes. Course 2333: The patient was evaluated in room B09. A complete history and physical examination were performed. Nursing notes and previous electronic medical records were reviewed. IV lock was established and labs were drawn as above. The patient was observed on the cardiac nurse specialist and pulse oximeter. An IV lock had to be obtained in the patient's right foot because she has such poor peripheral access. A twelve-lead EKG was obtained. 2346: Ordered Nitroglycerin 0.4mg SL 0008: Nursing staff reports the patient is refusing to take the nitroglycerin because last time she took it the medication made her shake. 0010: Ordered Lorazepam 1mg IV 0014: The patient's IV was placed in her foot. She did take her nitroglycerin. I ordered 1mg of Ativan to calm the patient down. 0030: Ordered Sodium Chloride 500 ml @ 50 mls/hr IV. 0052: Upon reevaluation, I discussed findings and results with the patient. She is still breathing fast and has muffled hearing. She verbalized agreement of the treatment plan. 0132: I spoke with Dr. Burner of the [facility]. The patient will be evaluated for further management and care. 0315: I attempted to remove the foreign body from the patient's left ear with a speculum and bayonet forceps but was unsuccessful. I will make Dr. Willis aware of this and he can consult ENT. Administered Medications Sodium Chloride (Nss) 500 mls @ 50 mls/hr IV .Q10H GENARO Stop: 04/18/19 00:29 Last Admin: 03/19/19 00:32 Dose: 50 mls/hr Documented by: [id number] Discontinued Medications Lorazepam (Ativan) Confirm Administered Dose 1 mg .ROUTE .STK-MED ONE Stop: 03/19/19 00:11 Last Admin: 03/19/19 00:16 Dose: 1 mg Documented by: [id number] Nitroglycerin (Nitrostat) 0.4 mg SL NOW STA Stop: 03/18/19 23:47 Last Admin: 03/19/19 00:17 Dose: 0.4 mg Documented by: [id number] Medical Decision Making Differential Diagnosis Differential diagnosis includes: anxiety, aortic dissection, ACS, GERD Medical Records Attestation: I reviewed the patient's medical records. Home Medications Current Medication List: was personally reviewed by me Laboratory Data Attestation: I reviewed the patient's lab results. Result diagrams: 03/19/19 00:15 03/19/19 00:15 Lab Results 03/19/19 03/19/19 Range/Units 00:15 00:15 WBC 10.32 (4.8-10.8) K/uL RBC 5.02 (4.2-5.4) M/uL Hgb 16.5 H (12.0-16.0) g/dL Hct 45.3 (37-47) % MCV 90.2 (80-100) fL MCH 32.9 (25-34) pg MCHC 36.4 H (32-36) g/dL RDW Std Deviation 43.3 (36.4-46.3) fL RDW Coeff of Blas 13.1 (11.5-14.5) % Plt Count 368 (130-400) K/uL MPV 9.0 (7.4-10.4) fL Immature Gran % (Auto) 0.1 % Neut % (Auto) 71.6 % Lymph % (Auto) 21.4 % [place] % (Auto) 6.5 % Eos % (Auto) 0.0 % Baso % (Auto) 0.4 % Immature Gran # (Auto) 0.01 (0.00-0.02) K/uL Neut # (Auto) 7.39 H (1.4-6.5) K/uL Lymph # (Auto) 2.21 (1.2-3.4) K/uL [place] # (Auto) 0.67 H (0.11-0.59) K/uL Eos # (Auto) 0.00 (0-0.5) K/uL Baso # (Auto) 0.04 (0-0.2) K/uL Sodium 135 L (136-145) mmol/L Potassium 3.9 (3.5-5.1) mmol/L Chloride 99 (98-107) mmol/L Carbon Dioxide 26 (21-32) mmol/L Anion Gap 10.0 (3-11) BUN 6 L (7-18) mg/dl Creatinine 1.00 (0.6-1.2) mg/dl Est Cr Clr Drug Dosing 49.2 ml/min Est GFR ( Amer) 68.0 Est GFR (Non-Af Amer) 58.7 BUN/Creatinine Ratio 6.4 L (10-20) Glucose 97 (70-99) mg/dl Calcium 9.4 (8.5-10.1) mg/dl Total Bilirubin 0.6 (0.2-1) mg/dl AST 11 L (15-37) U/L ALT 23 (12-78) U/L Alkaline Phosphatase 103 (45-117) U/L Troponin I < 0.015 (0-0.045) ng/ml Total Protein 8.0 (6.4-8.2) gm/dl Albumin 4.3 (3.4-5.0) gm/dl Globulin 3.7 (2.5-4.0) gm/dl Albumin/Globulin Ratio 1.2 (0.9-2) Lipase 274 (73-393) U/L Imaging Data Attestation: I personally reviewed and interpreted this imaging study as tracie oscar: My Impression: XR chest 1V: No cardiomegaly or CHF. ECG Data Attestation: I personally reviewed and interpreted this ECG as follows: Indication: weakness Rate (beats per minute): 91 Rhythm: normal sinus Findings: + ST depression (Lateral) and + T-wave inversion (Lead I and AVL) Comparison ECG Date: from (02/05/2019) Change: the following changes noted (ST Depression and TWI are new) Blood Pressure Blood Pressure Findings: Elevated blood pressure Blood Pressure Disposition: further management by hospitalist FELICIA Her The patient is a 68 y/o female who presents to the ED w/ CC of frequent episodes of losing consciousness and shortness of breath. The patient was admitted to the hospital last month with complaints of chest pain. She had elevated troponins at that time with no EKG changes. She presents tonight with increasing shortness of breath, left-sided chest discomfort that radiates into her left shoulder and up through her neck. She has negative troponin at this time but has some new EKG changes in comparison to previous EKGs. Patient had moderate relief of the left-sided chest discomfort with the sublingual nitroglycerin. The patient had taken her baby aspirin at home prior to coming here to the hospital. I discussed the case with Dr. Willis and he will evaluate for further management. Impression & Plan Left-sided chest pain, Acute electrocardiogram changes, Hypertensive urgency, F oreign body of ear, left : Foreign body of ear, left Qualifiers: Encounter type: initial encounter Qualified Code(s): T16.2XXA - Foreign body in left ear, initial encounter The scribe's documentation has been prepared under my direction and personally reviewed by me in its entirety. I confirm that the note above accurately reflects all work, treatment, procedures, and medical decision making performed by me.
[2019-03-19] MEDS ORDERED: OXYCODONE HCL IR 5 MG TAB (IMMEDIATE RELEASE) PO PRN (05:11)
[2019-03-19] MEDS ORDERED: NSS + 20MEQ KCL 20 MEQ/1,000 ML BAG IV STA (05:11)
[2019-03-19] MEDS ORDERED: NITROGLYCERIN SL 0.4 MG/TAB TAB SL PRN (05:11)
[2019-03-19] MEDS ORDERED: OLANZapine 10 MG/2.1 ML SDV IM PRN (05:11)
[2019-03-19] MEDS ORDERED: METOCLOPRAMIDE HCL INJ 5 MG/ML 2 ML VIAL IV PRN (05:11)
[2019-03-19] MEDS ORDERED: ACETAMINOPHEN 325 MG TAB PO PRN (05:11)
[2019-03-19] MEDS: METOPROLOL TARTRATE 50 MG TAB PO SCH ×2 (06:06→21:24)
--- NOTE | 2019-03-19 06:26 | XRay Report ---
XR chest 1V portable CLINICAL HISTORY: Chest Pain pain COMPARISON STUDY: 02/04/2019 FINDINGS: The bones soft tissues and hemidiaphragms are normal. The cardiomediastinal silhouette is n ormal. The lungs are clear. The pulmonary vasculature is normal. IMPRESSION: Negative chest. The above report was generated using voice recognition software. It may contain grammatical, syntax or spelling errors. Electronically signed by: Anuel Martinez M.D. 03/19/2019 6:25 AM
--- NOTE | 2019-03-19 07:25 | CT Scan Report ---
ABDOMEN AND PELVIS CT WITH IV CONTRAST CT DOSE: 249.20 mGy.cm HISTORY: Worsening generalized abdominal pain. TECHNIQUE: Multiaxial CT images of the abdomen and pelvis were performed following the use of intrave nous contrast. A dose lowering technique was utilized adhering to the principles of ALARA. COMPARISON STUDY: Abdomen and pelvis CT 01/14/2019. FINDINGS: Right basilar linear densities favor subsegmental atelectasis. No pneumoperitoneum. No pneu matosis. No fractures within the visualized osseous structures. Mild hepatic steatosis. The gallbladd er, spleen, adrenal glands, and kidneys are within normal limits. No hydronephrosis. 2 IVC filters ar e again noted one of which located within the right and out of vein. This remains unchanged. No retro peritoneal lymphadenopathy. Small cystic focus of the uncinate process of the pancreas appears unchan ged. This measures 11 mm and favors a side branch intraductal papillary mucinous neoplasm. The bladde r is mildly distended. This is also unchanged. The uterus and bilateral adnexa are within normal limi ts. No bowel wall thickening or obstruction. Normal appendix. IMPRESSION: 1. No change compared to prior study. 2. No bowel wall thickening or obstruction. 3. Normal appendix. 4. Stable 11 mm low-density lesion within the uncinate process of the pancreas. This favors a small s alberto branch intraductal papillary mucinous neoplasm. One year MRCP follow-up can be performed to ensur e stability. Electronically signed by: Montrell Wang M.D. 03/19/2019 7:23 AM
--- NOTE | 2019-03-19 07:25 | CT Scan Report ---
CT head/brain wo con CLINICAL HISTORY: 68 years-old Female presenting with headache, hypertension. TECHNIQUE: Multidetector CT imaging of the head was performed without the use of intravenous contrast . IV contrast: None. One or more dose lowering techniques were used consistent with the principles of ALARA (as low as reasonably achievable), including automatic exposure control, mA or kV adjustment t o individual patient size, and/or use of iterative reconstruction. COMPARISON: 11/23/2017. CT DOSE (mGy.cm): The estimated cumulative dose is 537.48 mGy.cm. 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 Ventricles and sulci normal in size. No hemorrhage. 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 Old lacunar infarct in the left basal ganglia also unchanged. No acute territo rial infarct. No mass effect or midline shift. No extra-axial fluid collection. Paranasal sinuses and mastoid air cells clear. Calvarium intact. IMPRESSION: 1. 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 Findings are unchanged. No acute intracranial abnormality. Electronically signed by: Graham Atkins M.D. 03/19/2019 7:23 AM
[2019-03-19 09:45] LABS: Appearance Urine Clear (Clear); Bilirubin Urine Negative (Negative); Blood Urine Negative (Negative); Color Urine Yellow; Glucose Urine UA Negative (Negative); Ketones Urine Negative (Negative); Leukocyte Esterase Urine Negative (Negative); Nitrite Urine Negative (Negative); Protein Urine Negative (Negative); Specific Gravity Urine 1.023 (1.000-1.030); Urobilinogen Urine Negative (Negative)
[2019-03-19] MEDS: ASPIRIN 81 MG ECTAB PO SCH (09:50)
[2019-03-19] MEDS: FONDAPARINUX 2.5 MG/0.5 ML SYR SQ SCH (09:50)
[2019-03-19 10:04] LABS: Amphetamines+Metham, Urine Neg (Neg); Barbiturates, Urine Neg (Neg); Benzodiazepine, Urine Neg (Neg); Cocaine, Urine Neg (Neg); MDMA (Ecstacy), Urine Neg (Neg); Methadone, Urine Neg (Neg); Opiate, Urine Neg (Neg); Phencyclidine, Urine Neg (Neg)
--- NOTE | 2019-03-19 10:55 | Gastrointestinal Consultation ---
Date of Consultation March 19, 2019 Assessment & Plan (1) Chronic abdominal pain: Pt reports melena and worsening chronic, diffuse abdominal pain. In light of pts report of melena and the severity of the pt's pain description and hx of prior esophagitis, it is reasonable to r/o gastritis, ulcer disease, duodenitis. Plan EGD tomorrow by Dr. Nicole. Further recommendations to follow endoscopy. Pt note appearance of pt's BMs. Please keep pt NPO after midnight. Present on Admission?: Yes Supervising Physician Co-Signing Physician Notes I have seen and examined the patient and discussed the management with HALI Yun. 68 yo fm with 6 years of chronic abdominal pain, admited overnite and GI consulted for abdominal pain and pancreatic mass. PE- tangential historia, alert and oriented, abd - soft nt nd +bs labs reviewed Imaging reviewed No reports of melena to me, but to Virgie. EGD tomorrow to exclude esophagiis/gastritis/ulcer. Make NPO after midnite. History of Present Illness Reason for Consultation: abdominal pain and pancreatic mass Requesting Physician: Dr. Sebastian Attending Physician: Kai Sebastian MD History of Present Illness Ms. Damaris Miller is a 68 yr old female with a hx of bipolar, schizoaffective disorder, HTN, CAD prior NH, COPD, DVT with IVF filter who activated EMS on 03/18 for left sided chest pain and self reported syncopal episodes. On arrival, she was hypertensive and BP meds were adjusted. CT of the head with old infarcts, no acute abnormalities, CT abd/pelvis with IV contrast with a sta ble 11mm pancreas cyst, otherwise no abnormalities. LFTs and lipase are normal. GI is consulted for abdominal pain and pancreatic mass. The pt is awake, alert, oriented and is very expressive regarding her symptoms, but provides contradictory details. She has had "severe, throbbing, burning," pain over the entire abdomen, every day for 6 yrs. In the past month, her pain is worse, "like nothing I've ever had before." The pain is severe with and after defecation causing pin pricks over her entire body. Pain may worsen after eating. It radiates to her chest and entire body and causes her to experience rapid heart rate, then "pass out." She initially stated that she only eats baby food, but then tells me she can eat break, chicken salad, egg salad. She denies any difficulty swallowing. After eating she can "feel the food moving through every inch of the stomach." She also believes that after eating the food and liquids, "runs up into the chest," that she can, "feel this." when asked about BMs, she tells me she has had black BMs for about 3 days. She typically has constipation and drinks molasses with milk with good effect. Esdras any Pepto Bismol use. Denies any adela hematochezia. She has had admissions in January and February for self reported syncopal episodes. Cardiology consulted in January, titrating her beta jeri and again in February suggesting eventual full work up for ischemic heart disease but thus far, stress testing was deferred per pt preference and thought that she would not be able to build enough enough exercise response for a good study. Regarding prior endoscopy, EGD in [address] Lopez for chest pain with findings of LA Grade C reflux esophagitis, hiatal hernia, duodenal aphthus ulcers. Path: Branch's without dysplasia, chronic active esophagitis and duodenitis. Colonoscopy [place] [address] Guerrier for diarrhea was normal. Allergies Allergy/AdvReac Type Severity Reaction Status Date / Time atropine Allergy Severe castillo, hard Verified 03/18/19 23:46 time breathing clonidine Allergy Severe RAISES Unverified 03/18/19 23:46 B.P., ANXIOUSNESS diphenhydramine Allergy Severe "I ALMOST Verified 03/18/19 23:46 ." hyoscyamine Allergy Severe castillo, hard Verified 03/18/19 23:46 time breathing labetalol Allergy Severe selling,loss Verified 03/18/19 23:46 of taste,itch, rash phenobarbital Allergy Severe castillo, hard Verified 03/18/19 23:46 time breathing prednisone Allergy Severe Edema Verified 03/18/19 23:46 face,lips and tongue. scopolamine Allergy Severe castillo, hard Verified 03/18/19 23:46 time breathing enoxaparin Allergy Intermediate RASH Verified 03/18/19 23:46 levofloxacin Allergy Intermediate ARM TURNED Verified 03/18/19 23:46 "FIREY RED" WHEN INFUSED, CLEARED IN A FEW HOURS tramadol Allergy Intermediate blisters Verified 03/18/19 23:46 all over warfarin Allergy Intermediate rash Verified 03/18/19 23:46 chlorpromazine Allergy Mild TOLERATING Verified 03/18/19 23:46 PROLIXIN AT HOME 01/15/08 Penicillins Allergy Mild Unknown Verified 03/18/19 23:46 coumarin Allergy Unknown UNKNOWN Verified 03/18/19 23:46 naproxen Allergy Unknown Unknown Verified 03/18/19 23:46 morphine AdvReac Severe SHOCK;TOLERATES Verified 03/18/19 23:46 DEMEROL aspirin AdvReac Intermediate BLEEDING Verified 03/18/19 23:46 codeine AdvReac Intermediate BP DROPS Verified 03/18/19 23:46 AND PASSES OUT dicyclomine AdvReac Intermediate GI SYMPTOMS Verified 03/18/19 23:46 hydralazine AdvReac Intermediate palpitations Verified 03/19/19 06:19 as per px ibuprofen AdvReac Intermediate BLEEDING Verified 03/18/19 23:46 amitriptyline AdvReac Mild Nausea/vomi Verified 03/18/19 23:46 timg lisinopril AdvReac Mild COUGH Verified 03/18/19 23:46 nitrofurantoin AdvReac Unknown hallucinati Verified 03/18/19 23:46 ng Home Medications Home Medications Medication Instructions Recorded Confirmed Type aspirin [Aspirin Childrens] 81 mg PO DAILY 12/21/18 03/18/19 History metoprolol tartrate 50 mg PO QPM 02/04/19 03/18/19 History metoprolol tartrate 100 mg PO QAM 02/04/19 03/18/19 History Patient History Medical History DVT (deep venous thrombosis) (Chronic) Posttraumatic stress disorder (Chronic 01/14/13) COPD (chronic obstructive pulmonary disease) (Chronic) Hypertension (Chronic) Schizoaffective disorder (Chronic 01/22/12) Tobacco abuse (Chronic) H/O drug abuse (Chronic) Hypertensive urgency (Resolved) High blood pressure (Chronic) Surgical History History of cystoscopy (Chronic) History of inferior vena caval filter placement (Chronic) Family History Father Myocardial infarction, Onset Age: 66 Diabetes Mother Stroke Colorectal cancer Other Family history non-contributory Social History Preferred Language: Urdu Communication Ability: Effective Visual Impairment: No Limitations Hearing Ability: Normal Floor Hand Required: No Beliefs That Will Affect Care: None marital status: Single Current Living Situation: Alone Current Living Situation Comment: Living in apartment in [place] Other Information That Helps Us Care for You: No Feels Safe at Home: Yes Safety Concerns: Feels Safe At This Time Smoking Status: Current some day smoker Tobacco Type: cigarettes ; Cigarettes Per Day: "one pack every 2 weeks ; Do You Dip or Chew Tobacco: No ; Second Hand Exposure: No ; Tobacco Cessation Education Requested by Patient: No Hx Alcohol Use: No Hx Substance Use: No Review of Systems Constitutional: + body aches, + weakness and + weight loss Eyes: no eye pain, no itchy eyes and no problem reported Ear, Nose, Mouth, Throat: " Sometimes ears don't work - can't hear." Respiratory: + cough; no chest congestion, no dyspnea and no wheezing Cardiovascular: + chest pain, + palpitations and + syncope; no edema Gastrointestinal: + abdominal pain, + bloating, + vomiting (reports vomiting up clear phlegm every morning) and + constipation (chronic, uses molasses with milk for a laxative); no hematemesis Physical Exam Constitutional: WD/WN, vitals as above + thin Eyes: PERRL, conjunctivae normal, anicteric sclerae ENMT: external ear and nose normal, oropharynx normal Neck: trachea midline, no thyromegaly Respiratory: normal respiratory effort, lungs clear to auscultation Cardiovascular: RRR, no murmur, no edema Gastrointestinal (Abdomen): Normal BS, soft, c/o tenderness over entire abdomen but also says that palpation does not change her pain. No palpable masses. Musculoskeletal: Head/Neck/Chest: neck supple Extremities: + clubbing; no petechiae Skin: no rashes, warm and dry Neurologic: PERRL, EOMI, accommodation nl, no face palsy, no dysarthria Psychiatric: Orientation: alert and oriented x 3 Affect: + anxious affect Insight: + limited insight Lymphatic: no cervical or axillary lymphadenopathy Results & Data Vital Signs (Past 12 Hours) Vital Signs Temp Pulse Pulse Resp BP BP Pulse Ox 08/15/19 09:00 96 H 03/19/19 08:07 36.6 C 76 18 156/81 H 96 03/19/19 05:00 36.7 C 97 H 16 122/71 100 03/19/19 04:53 98 H 17 128/97 95 03/19/19 04:30 93 H 13 128/97 97 03/19/19 04:00 99 H 15 120/81 98 03/19/19 03:30 109 H 19 148/78 H 96 03/19/19 03:25 109 H 18 153/85 H 98 03/19/19 03:21 130 H 17 153/85 H 97 03/19/19 02:30 132 H 16 172/114 H 97 03/19/19 02:00 109 H 26 H 151/83 H 97 03/19/19 01:45 100 H 108 H 17 136/88 136/88 96 03/19/19 01:30 101 H 22 133/94 96 03/19/19 01:16 93 H 16 134/80 97 03/19/19 01:00 92 H 89 19 155/97 H 155/97 H 97 03/19/19 00:45 88 18 153/94 H 96 03/19/19 00:30 102 H 20 03/19/19 00:21 108 H 17 140/113 H 95 03/19/19 00:20 108 H 24 140/113 H 95 03/19/19 00:00 93 H 18 03/18/19 23:45 92 H 17 99 03/18/19 23:30 86 98 H 23 193/85 H 204/97 H 99 03/18/19 23:28 91 H 19 204/97 H 99 03/18/19 23:17 103 H 22 03/18/19 23:15 102 H 20 222/119 H 98 03/18/19 23:14 101 H 18 221/119 H 98 Laboratory Results WBC 10, Hb 16, Hct 41, Platelets 368, Na 135, K 3.9, BUN 6, Cr 1. Diagnostic Findings CT abd/pelvis with IV contrast on 03/18: . No change compared to prior study. 2. No bowel wall thickening or obstruction. 3. Normal appendix. 4. Stable 11 mm low-density lesion within the uncinate process of the pancreas. This favors a small side branch intraductal papillary mucinous neoplasm. One year MRCP follow-up can be performed to ensure stability.
--- NOTE | 2019-03-19 11:46 | Nuclear Medicine Report ---
NM pul vent and perfuse CLINICAL HISTORY: Chest pain. Dyspnea. COMPARISON: None TECHNIQUE: For the ventilation portion of this exam, 32.7 mCi of DTPA was inhaled at 1045. Immediat breanne following inhalation, imaging of the chest was carried out in the anterior, posterior, left later al, right lateral, LPO, RPO, MELANIE and [place] projections. For the perfusion portion of exam, 5.3 mCi of technetium 99m MAA was injected IV at 1105. Immediately following injection, imaging of the chest was carried out in the same projections. FINDINGS: Uniform perfusion as well as ventilation throughout both hemithoraces. No evidence for sig nificant ventilation/perfusion mismatch. IMPRESSION: Normal study. The above report was generated using voice recognition software. It may contain grammatical, syntax or spelling errors. Electronically signed by: Anuel Martinez M.D. 03/19/2019 11:45 AM
[2019-03-19] MEDS ORDERED: LORazepam 0.5 MG TAB PO STA ×2 (13:59→22:31)
--- NOTE | 2019-03-19 14:19 | ENT Consultation ---
Date of Consultation March 19, 2019 Assessment & Plan (1) Foreign body sensation in both ear canals: Use microscope for removal tomorrow History of Present Illness Reason for Consultation: Blocked ears Attending Physician: Kai Sebastian MD History of Present Illness 68-year-old lady admitted for chest pain and syncope noted to have foreign body in both years after she complained of blocked hearing Allergies Allergy/AdvReac Type Severity Reaction Status Date / Time atropine Allergy Severe castillo, hard Verified 03/18/19 23:46 time breathing clonidine Allergy Severe RAISES Unverified 03/18/19 23:46 B.P., ANXIOUSNESS diphenhydramine Allergy Severe "I ALMOST Verified 03/18/19 23:46 ." hyoscyamine Allergy Severe castillo, hard Verified 03/18/19 23:46 time breathing labetalol Allergy Severe selling,loss Verified 03/18/19 23:46 of taste,itch, rash phenobarbital Allergy Severe castillo, hard Verified 03/18/19 23:46 time breathing prednisone Allergy Severe Edema Verified 03/18/19 23:46 face,lips and tongue. scopolamine Allergy Severe castillo, hard Verified 03/18/19 23:46 time breathing enoxaparin Allergy Intermediate RASH Verified 03/18/19 23:46 levofloxacin Allergy Intermediate ARM TURNED Verified 03/18/19 23:46 "FIREY RED" WHEN INFUSED, CLEARED IN A FEW HOURS tramadol Allergy Intermediate blisters Verified 03/18/19 23:46 all over warfarin Allergy Intermediate rash Verified 03/18/19 23:46 chlorpromazine Allergy Mild TOLERATING Verified 03/18/19 23:46 PROLIXIN AT HOME 01/15/08 Penicillins Allergy Mild Unknown Verified 03/18/19 23:46 coumarin Allergy Unknown UNKNOWN Verified 03/18/19 23:46 naproxen Allergy Unknown Unknown Verified 03/18/19 23:46 morphine AdvReac Severe SHOCK;TOLERATES Verified 03/18/19 23:46 DEMEROL aspirin AdvReac Intermediate BLEEDING Verified 03/18/19 23:46 codeine AdvReac Intermediate BP DROPS Verified 03/18/19 23:46 AND PASSES OUT dicyclomine AdvReac Intermediate GI SYMPTOMS Verified 03/18/19 23:46 hydralazine AdvReac Intermediate palpitations Verified 03/19/19 06:19 as per px ibuprofen AdvReac Intermediate BLEEDING Verified 03/18/19 23:46 amitriptyline AdvReac Mild Nausea/vomi Verified 03/18/19 23:46 timg lisinopril AdvReac Mild COUGH Verified 03/18/19 23:46 nitrofurantoin AdvReac Unknown hallucinati Verified 03/18/19 23:46 ng Home Medications Home Medications Medication Instructions Recorded Confirmed Type aspirin [Aspirin Childrens] 81 mg PO DAILY 12/21/18 03/18/19 History metoprolol tartrate 50 mg PO QPM 02/04/19 03/18/19 History metoprolol tartrate 100 mg PO QAM 02/04/19 03/18/19 History Patient History Medical History DVT (deep venous thrombosis) (Chronic) Posttraumatic stress disorder (Chronic 01/14/13) COPD (chronic obstructive pulmonary disease) (Chronic) Hypertension (Chronic) Schizoaffective disorder (Chronic 01/22/12) Tobacco abuse (Chronic) H/O drug abuse (Chronic) Hypertensive urgency (Resolved) High blood pressure (Chronic) Surgical History History of cystoscopy (Chronic) History of inferior vena caval filter placement (Chronic) Family History Father Myocardial infarction, Onset Age: 66 Diabetes Mother Stroke Colorectal cancer Other Family history non-contributory Social History Preferred Language: Pashto Communication Ability: Effective Visual Impairment: No Limitations Hearing 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: Normal 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 Beliefs That Will Affect Care: None marital status: Single Current Living Situation: Alone Current Living Situation Comment: Living in apartment in [place] Other Information That Helps Us Care for You: No Feels Safe at Home: Yes Safety Concerns: Feels Safe At This Time Smoking Status: Current some day smoker Tobacco Type: cigarettes ; Cigarettes Per Day: "one pack every 2 weeks ; Do You Dip or Chew Tobacco: No ; Second Hand Exposure: No ; Tobacco Cessation Education Requested by Patient: No Hx Alcohol Use: No Hx Substance Use: No Physical Exam Constitutional: WD/WN, vitals as above Eyes: PERRL, conjunctivae normal, anicteric sclerae ENMT: Ears: + hearing impairment (Diminished) and + external ear abnormality ([place] foreign body left ear and possible foreign body right ear canal) Results & Data Vital Signs (Past 12 Hours) Vital Signs Temp Pulse Pulse Resp BP BP Pulse Ox 03/19/19 13:03 36.6 C 83 18 138/74 98 03/19/19 09:00 96 H 03/19/19 08:07 36.6 C 76 18 156/81 H 96 03/19/19 05:00 36.7 C 97 H 16 122/71 100 03/19/19 04:53 98 H 17 128/97 95 03/19/19 04:30 93 H 13 128/97 97 03/19/19 04:00 99 H 15 120/81 98 03/19/19 03:30 109 H 19 148/78 H 96 03/19/19 03:25 109 H 18 153/85 H 98 03/19/19 03:21 130 H 17 153/85 H 97 03/19/19 02:30 132 H 16 172/114 H 97
--- NOTE | 2019-03-19 15:41 | Cardiology Consultation ---
Date of Consultation March 19, 2019 Assessment & Plan (1) Left-sided chest pain: (2) Hypertensive urgency: (3) Foreign body sensation in both ear canals: (4) History of inferior vena caval filter placement: I do not believe any additional cardiac testing is indicated at this time. This patient may benefit from a mental health exam and I have consulted psychiatry. History of Present Illness Attending Physician: Kai Sebastian MD History of Present Illness This is a 68-year-old female who has been here and admitted on multiple occasions over the past several months. She has a history of mental illness. She is been admitted with multiple somatic complaints including chest pain. She has had multiple echocardiograms that failed to show any evidence of ischemic heart disease. Cardiac markers are again negative this admission. EKG shows poor R wave progression across the precordium and is essentially unchanged from previous. She currently has no complaints during my interview of chest pain. Allergies Allergy/AdvReac Type Severity Reaction Status Date / Time atropine Allergy Severe castillo, hard Verified 03/18/19 23:46 time breathing clonidine Allergy Severe RAISES Unverified 03/18/19 23:46 B.P., ANXIOUSNESS diphenhydramine Allergy Severe "I ALMOST Verified 03/18/19 23:46 ." hyoscyamine Allergy Severe castillo, hard Verified 03/18/19 23:46 time breathing labetalol Allergy Severe selling,loss Verified 03/18/19 23:46 of taste,itch, rash phenobarbital Allergy Severe castillo, hard Verified 03/18/19 23:46 time breathing prednisone Allergy Severe Edema Verified 03/18/19 23:46 face,lips and tongue. scopolamine Allergy Severe castillo, hard Verified 03/18/19 23:46 time breathing enoxaparin Allergy Intermediate RASH Verified 03/18/19 23:46 levofloxacin Allergy Intermediate ARM TURNED Verified 03/18/19 23:46 "FIREY RED" WHEN INFUSED, CLEARED IN A FEW HOURS tramadol Allergy Intermediate blisters Verified 03/18/19 23:46 all over warfarin Allergy Intermediate rash Verified 03/18/19 23:46 chlorpromazine Allergy Mild TOLERATING Verified 03/18/19 23:46 PROLIXIN AT HOME 01/15/08 Penicillins Allergy Mild Unknown Verified 03/18/19 23:46 coumarin Allergy Unknown UNKNOWN Verified 03/18/19 23:46 naproxen Allergy Unknown Unknown Verified 03/18/19 23:46 morphine AdvReac Severe SHOCK;TOLERATES Verified 03/18/19 23:46 DEMEROL aspirin AdvReac Intermediate BLEEDING Verified 03/18/19 23:46 codeine AdvReac Intermediate BP DROPS Verified 03/18/19 23:46 AND PASSES OUT dicyclomine AdvReac Intermediate GI SYMPTOMS Verified 03/18/19 23:46 hydralazine AdvReac Intermediate palpitations Verified 03/19/19 06:19 as per px ibuprofen AdvReac Intermediate BLEEDING Verified 03/18/19 23:46 amitriptyline AdvReac Mild Nausea/vomi Verified 03/18/19 23:46 timg lisinopril AdvReac Mild COUGH Verified 03/18/19 23:46 nitrofurantoin AdvReac Unknown hallucinati Verified 03/18/19 23:46 ng Home Medications Home Medications Medication Instructions Recorded Confirmed Type aspirin [Aspirin Childrens] 81 mg PO DAILY 12/21/18 03/18/19 History metoprolol tartrate 50 mg PO QPM 02/04/19 03/18/19 History metoprolol tartrate 100 mg PO QAM 02/04/19 03/18/19 History Patient History Medical History DVT (deep venous thrombosis) (Chronic) Posttraumatic stress disorder (Chronic 01/14/13) COPD (chronic obstructive pulmonary disease) (Chronic) Hypertension (Chronic) Schizoaffective disorder (Chronic 01/22/12) Tobacco abuse (Chronic) H/O drug abuse (Chronic) Hypertensive urgency (Resolved) High blood pressure (Chronic) Surgical History History of cystoscopy (Chronic) History of inferior vena caval filter placement (Chronic) Family History Father Myocardial infarction, Onset Age: 66 Diabetes Mother Stroke Colorectal cancer Other Family history non-contributory Social History Preferred Language: Dominican Communication Ability: Effective Visual Impairment: No Limitations Hearing Ability: Normal Release Coordinator Required: No Beliefs That Will Affect Care: None marital status: Single Current Living Situation: Alone Current Living Situation Comment: Living in apartment in [place] Other Information That Helps Us Care for You: No Feels Safe at Home: Yes Safety Concerns: Feels Safe At This Time Smoking Status: Current some day smoker Tobacco Type: cigarettes ; Cigarettes Per Day: "one pack every 2 weeks ; Do You Dip or Chew Tobacco: No ; Second Hand Exposure: No ; Tobacco Cessation Education Requested by Patient: No Hx Alcohol Use: No Hx Substance Use: No Review of Systems Review of Systems: Unobtainable due to mental health condition Physical Exam Physical Exam: General: no acute distress and stated age Head: normocephalic, no masses, lesions, tenderness or abnormalities Eyes: conjunctiva are pink and non-injected, sclera clear Neck: supple, no adenopathy, no bruits, normal jugular venous pulse, no hepatojugular reflux Chest: normal shape and normal respiratory effort Lungs: clear to auscultation and percussion Cardiac Exam: - regular rate & rhythm, no murmurs gallops or rubs - normal S1, normal S2 Pulses: 2(+) throughout Abdomen: abdomen soft, non-tender, no abnormal masses and no hepatosplenomegaly Musculoskeletal: no gait disturbance, no joint inflammation, no deforming arthritis Extremities: no edema and no cyanosis Neuro: grossly normal exam Results & Data Vital Signs (Past 12 Hours) Vital Signs Temp Pulse Pulse Resp BP BP Pulse Ox 03/19/19 13:03 36.6 C 83 18 138/74 98 03/19/19 09:00 96 H 03/19/19 08:07 36.6 C 76 18 156/81 H 96 03/19/19 05:00 36.7 C 97 H 16 122/71 100 03/19/19 04:53 98 H 17 128/97 95 03/19/19 04:30 93 H 13 128/97 97 03/19/19 04:00 99 H 15 120/81 98 Laboratory Results Laboratory Results - last 24 hr 03/19/19 03/19/19 03/19/19 00:15 00:15 07:58 WBC 10.32 RBC 5.02 Hgb 16.5 H Hct 45.3 MCV 90.2 MCH 32.9 MCHC 36.4 H RDW Std Deviation 43.3 RDW Coeff of Blas 13.1 Plt Count 368 MPV 9.0 Immature Gran % (Auto) 0.1 Neut % (Auto) 71.6 Lymph % (Auto) 21.4 [place] % (Auto) 6.5 Eos % (Auto) 0.0 Baso % (Auto) 0.4 Immature Gran # (Auto) 0.01 Neut # (Auto) 7.39 H Lymph # (Auto) 2.21 [place] # (Auto) 0.67 H Eos # (Auto) 0.00 Baso # (Auto) 0.04 ESR 18 Sodium 135 L Potassium 3.9 Chloride 99 Carbon Dioxide 26 Anion Gap 10.0 BUN 6 L Creatinine 1.00 Est Cr Clr Drug Dosing 49.2 Est GFR ( Amer) 68.0 Est GFR (Non-Af Amer) 58.7 BUN/Creatinine Ratio 6.4 L Glucose 97 Calcium 9.4 Total Bilirubin 0.6 AST 11 L ALT 23 Alkaline Phosphatase 103 Troponin I < 0.015 Total Protein 8.0 Albumin 4.3 Globulin 3.7 Albumin/Globulin Ratio 1.2 Lipase 274 Urine Color Urine Appearance Urine pH Ur Specific [place] Urine Protein Urine Glucose (UA) Urine Ketones Urine Blood Urine Nitrite Urine Bilirubin Urine Urobilinogen Ur Leukocyte Esterase Urine Opiates Screen Ur Methadone, Qual Urine Barbiturates Ur Phencyclidine (PCP) U Amphetamin/Meth Scrn MDMA (Ecstasy) Screen U Benzodiazepines Scrn Ur Cocaine Metabolite U Marijuana (THC) Screen 03/19/19 03/19/19 03/19/19 07:58 09:34 09:34 WBC RBC Hgb Hct MCV MCH MCHC RDW Std Deviation RDW Coeff of Blas Plt Count MPV Immature Gran % (Auto) Neut % (Auto) Lymph % (Auto) [place] % (Auto) Eos % (Auto) Baso % (Auto) Immature Gran # (Auto) Neut # (Auto) Lymph # (Auto) [place] # (Auto) Eos # (Auto) Baso # (Auto) ESR Sodium Potassium Chloride Carbon Dioxide Anion Gap BUN Creatinine Est Cr Clr Drug Dosing Est GFR ( Amer) Est GFR (Non-Af Amer) BUN/Creatinine Ratio Glucose Calcium Total Bilirubin AST ALT Alkaline Phosphatase Troponin I < 0.015 Total Protein Albumin Globulin Albumin/Globulin Ratio Lipase Urine Color Yellow Urine Appearance Clear Urine pH 6.0 Ur Specific [place] 1.023 Urine Protein Negative Urine Glucose (UA) Negative Urine Ketones Negative Urine Blood Negative Urine Nitrite Negative Urine Bilirubin Negative Urine Urobilinogen Negative Ur Leukocyte Esterase Negative Urine Opiates Screen Neg Ur Methadone, Qual Neg Urine Barbiturates Neg Ur Phencyclidine (PCP) Neg U Amphetamin/Meth Scrn Neg MDMA (Ecstasy) Screen Neg U Benzodiazepines Scrn Neg Ur Cocaine Metabolite Neg U Marijuana (THC) Screen Neg Medications Administered Current Inpatient Medications Acetaminophen (Tylenol) 650 mg PO Q4H PRN PRN Reason: Pain or Fever Stop: 04/18/19 05:10 Aspirin (Ecotrin Ectab) 81 mg PO DAILY GENARO Stop: 04/18/19 08:59 Last Admin: 03/19/19 09:50 Dose: 81 mg Documented by: Fondaparinux (Arixtra) 2.5 mg SQ DAILY GENARO Stop: 04/18/19 08:59 Last Admin: 03/19/19 09:50 Dose: 2.5 mg Documented by: Potassium Chloride/Sodium Chloride (Normal Saline W/20 Meq Kcl) 20 meq in 1,000 mls @ 40 mls/hr IV .Q24H STA Stop: 03/20/19 05:10 Last Admin: 03/19/19 06:06 Dose: 40 mls/hr Documented by: Metoclopramide HCl (Reglan) 10 mg IV Q6H PRN PRN Reason: Nausea Stop: 04/18/19 05:10 Metoprolol Tartrate (Lopressor) 100 mg PO BID GENARO Stop: 04/18/19 05:10 Last Admin: 03/19/19 06:06 Dose: 100 mg Documented by: Nitroglycerin (Nitrostat) 0.4 mg SL UD PRN PRN Reason: Chest Pain Stop: 04/18/19 05:10 Olanzapine (Zyprexa) 2.5 mg IM Q4H PRN PRN Reason: Anxiety/Agitation Stop: 04/18/19 05:10 Oxycodone HCl (Roxicodone Immediate Rel) 5 mg PO Q4H PRN PRN Reason: Pain Stop: 04/02/19 05:10
--- NOTE | 2019-03-19 16:06 | Hospitalist Progress Note ---
Date of Service March 19, 2019 Assessment & Plan (1) Left-sided chest pain: Likely due to Hypertensive urgency V/Q scan: Normal ? Medication compliance Troponin X 2: Negative EKG: Non specific T wave changes Appreciate Cardiology Input Continue Metoprolol Adjust HTN meds as needed Chronic abdominal pain ? Melena H/O IBS --CT ABD:No change compared to prior study. No bowel wall thickening or obstruction. Normal appendix. Stable 11 mm low-density lesion within the uncinate process of the pancreas. This favors a small side branch intraductal papillary mucinous neoplasm. One year MRCP follow-up can be performed to ensure stability. Appreciate GI Input N.p.o. after midnight for possible EGD in the morning Monitor CBC Decreasing Hearing Foreign body sensation Appreciate ENT Input Planned for microscopic removal tomorrow H/O DVT/PE S/P IVC filter H/O Recurrent syncope R/O orthostasis, seizure disorder Monitor on Tele for arrhythmias Bipolar Disorder Chronic pain/drug dependence as per records Ongoing tobacco abuse Psychiatry consulted for Input Urine toxicology: Normal DVT Px: Arixtra SQ Code Status Full code Disposition: To be determined Subjective Patient is seen and examined at bedside Has multiple complaints Complains of chest pain, chronic abdominal pain, decreased hearing, poor sleep, melena Discussed with GI today No family at bedside Review of Systems Review of Systems: All systems reviewed & are unremarkable except as noted in HPI & below Physical Exam Physical Exam: Physical Exam: Vitals signs as noted above General Appearance:Thin, Anxious Head: normocephalic, Atraumatic Eyes: normal inspection, EOMI Neck: supple, Trachea midline Respiratory/Chest: Decreased breath sounds, CTA Cardiovascular: S1, S2, No murmur Abdomen/GI:Soft, Generalized tender, Bowel sounds present Extremities/Musculoskelatal:normal inspection, no edema Neurologic/Psych:AAOX3, grossly no focal neurological deficits, +Bipolar Skin: normal color, warm Results & Data Vital Signs (Past 12 Hours) Vital Signs Temp Pulse Pulse Resp BP BP Pulse Ox 03/19/19 15:38 80 03/19/19 13:03 36.6 C 83 18 138/74 98 03/19/19 09:00 96 H 03/19/19 08:07 36.6 C 76 18 156/81 H 96 03/19/19 05:00 36.7 C 97 H 16 122/71 100 03/19/19 04:53 98 H 17 128/97 95 03/19/19 04:30 93 H 13 128/97 97 Laboratory Results Short CBC 03/19/19 Range/Units 00:15 WBC 10.32 (4.8-10.8) K/uL Hgb 16.5 H (12.0-16.0) g/dL Hct 45.3 (37-47) % Plt Count 368 (130-400) K/uL BMP 03/19/19 00:15 Sodium 135 L Potassium 3.9 Chloride 99 Carbon Dioxide 26 BUN 6 L Creatinine 1.00 Glucose 97 Calcium 9.4 Cardiac Enzymes 03/19/19 03/19/19 Range/Units 00:15 07:58 Troponin I < 0.015 < 0.015 (0-0.045) ng/ml Liver Function 03/19/19 Range/Units 00:15 Total Bilirubin 0.6 (0.2-1) mg/dl AST 11 L (15-37) U/L ALT 23 (12-78) U/L Alkaline Phosphatase 103 (45-117) U/L Albumin 4.3 (3.4-5.0) gm/dl Urine 03/19/19 Range/Units 09:34 Urine Color Yellow Urine Appearance Clear (Clear) Urine pH 6.0 (4.5-7.5) Ur Specific [place] 1.023 (1.000-1.030) Urine Protein Negative (Negative) Urine Glucose (UA) Negative (Negative)
[2019-03-20 06:55] LABS: Hematocrit (blood only) 41.5 % (37-47); Hemoglobin 14.2 g/dL (12.0-16.0); Mean Corpuscular Hemoglobin 31.6 pg (25-34); Mean Corpuscular Hgb Conc 34.2 g/dL (32-36); Mean Corpuscular Volume 92.2 fL (80-100); Mean Platelet Volume 9.4 fL (7.4-10.4); Platelet Count 325 K/uL (130-400); RDW Coefficient of Variation 13.5 % (11.5-14.5); RDW Standard Deviation 45.5 fL (36.4-46.3); White Blood Count 6.96 K/uL (4.8-10.8)
[2019-03-20 07:36] LABS: BUN Creatinine Ratio 6.2 (10-20); Est GFR (African American) 99.5; Est GFR (Non-African American) 85.8; Magnesium 2.1 mg/dl (1.8-2.4); Potassium 3.9 mmol/L (3.5-5.1)
[2019-03-20] MEDS: METOPROLOL TARTRATE 50 MG TAB PO SCH ×2 (08:39→20:18)
[2019-03-20] MEDS: ASPIRIN 81 MG ECTAB PO SCH (08:39)
[2019-03-20] MEDS: FONDAPARINUX 2.5 MG/0.5 ML SYR SQ SCH (08:39)
--- NOTE | 2019-03-20 11:27 | Anesthesiology Progress Note ---
Date of Service March 20, 2019 Anesthesia Post Procedure Vital Signs Vital Signs: Temp Pulse Pulse Resp BP Pulse Ox 03/20/19 11:21 36.9 C 82 18 98 03/20/19 09:30 79 03/20/19 07:39 36.8 C 82 18 128/66 96 03/20/19 02:37 36.9 C 80 18 136/83 94 03/19/19 23:13 37.0 C 63 16 137/72 100 03/19/19 19:13 37.1 C 69 21 114/65 96 03/19/19 16:10 36.6 C 71 21 132/76 97 03/19/19 15:38 80 03/19/19 13:03 36.6 C 83 18 138/74 98 Pain Intensity Chest: Pain Intensity: 2 Bilateral Abdomen: Pain Intensity: 5 Transfer of Care Handoff Completed per policy Notes Mental Status: see notes below Patient Amnestic to Procedure: Yes Nausea / Vomiting: adequately controlled Pain: adequately controlled Airway Patency, RR, SpO2: stable & adequate BP & HR: see Notes below Hydration State: see Notes below Anesthetic Complications: no major complications apparent Notes: Pt is critical;remains intubated on mechanical vent.
--- NOTE | 2019-03-20 11:45 | Cardiology Progress Note ---
Date of Service March 20, 2019 Assessment & Plan (1) Left-sided chest pain: (2) Hypertensive urgency: (3) Foreign body sensation in both ear canals: (4) History of inferior vena caval filter placement: (5) Medical non-compliance: (6) Chronic mental illness: This patient has a long-standing history of mental illness and unfortunately medical noncompliance. Psychiatric liaison note appreciated as well as reviewed the chart and previous psychiatric consult in August are very helpful. The patient's most recent hospital admission in February, she signed out AMA. She is refusing psychiatric care at this time. Unfortunately, the biggest threat to her physical health is her refusal to accept mental health services. I would recommend no additional cardiac testing at this time. Cardiology signs off the case. Subjective No chest pain complaints today. Review of Systems Review of Systems: All systems reviewed & are unremarkable except as noted in HPI & below No additional information. Physical Exam Physical Exam: General: no acute distress and stated age Head: normocephalic, no masses, lesions, tenderness or abnormalities Eyes: conjunctiva are pink and non-injected, sclera clear Neck: supple, no adenopathy, no bruits, normal jugular venous pulse, no hepatojugular reflux Chest: normal shape and normal respiratory effort Lungs: clear to auscultation and percussion Cardiac Exam: - regular rate & rhythm, no murmurs gallops or rubs - normal S1, normal S2 Pulses: 2(+) throughout Abdomen: abdomen soft, non-tender, no abnormal masses and no hepatosplenomegaly Musculoskeletal: no gait disturbance, no joint inflammation, no deforming arthritis Extremities: no edema and no cyanosis Neuro: grossly normal exam Results & Data Vital Signs (Past 12 Hours) Vital Signs Temp Pulse Pulse Resp BP Pulse Ox 03/20/19 11:21 36.9 C 82 18 98 03/20/19 09:30 79 03/20/19 07:39 36.8 C 82 18 128/66 96 03/20/19 02:37 36.9 C 80 18 136/83 94 Laboratory Results Laboratory Results - last 24 hr 03/20/19 03/20/19 03/20/19 06:22 06:22 06:22 WBC 6.96 RBC 4.50 Hgb 14.2 Hct 41.5 MCV 92.2 MCH 31.6 MCHC 34.2 RDW Std Deviation 45.5 RDW Coeff of Blas 13.5 Plt Count 325 MPV 9.4 Sodium 141 Potassium 3.9 Chloride 112 H Carbon Dioxide 22 Anion Gap 6.0 BUN 5 L Creatinine 0.73 Est Cr Clr Drug Dosing 60.0 Est GFR ( Amer) 99.5 Est GFR (Non-Af Amer) 85.8 BUN/Creatinine Ratio 6.2 L Glucose 84 Calcium 9.0 Magnesium 2.1 Hepatitis C Ab Screen Neg Medications Administered Current Inpatient Medications Acetaminophen (Tylenol) 650 mg PO Q4H PRN PRN Reason: Pain or Fever Stop: 04/18/19 05:10 Aspirin (Ecotrin Ectab) 81 mg PO DAILY [facility] Stop: 04/18/19 08:59 Last Admin: 03/20/19 08:39 Dose: 81 mg Documented by: Dicyclomine HCl (Bentyl) 10 mg PO QID [facility] Stop: 04/19/19 12:59 Fondaparinux (Arixtra) 2.5 mg SQ DAILY [facility] Stop: 04/18/19 08:59 Last Admin: 03/20/19 08:39 Dose: 2.5 mg Documented by: Metoclopramide HCl (Reglan) 10 mg IV Q6H PRN PRN Reason: Nausea Stop: 04/18/19 05:10 Metoprolol Tartrate (Lopressor) 100 mg PO BID [facility] Stop: 04/18/19 05:10 Last Admin: 03/20/19 08:39 Dose: 100 mg Documented by: Nitroglycerin (Nitrostat) 0.4 mg SL UD PRN PRN Reason: Chest Pain Stop: 04/18/19 05:10 Olanzapine (Zyprexa) 2.5 mg IM Q4H PRN PRN Reason: Anxiety/Agitation Stop: 04/18/19 05:10 Oxycodone HCl (Roxicodone Immediate Rel) 5 mg PO Q4H PRN PRN Reason: Pain Stop: 04/02/19 05:10
[2019-03-20] MEDS ORDERED: LORazepam 0.5 MG TAB PO STA (11:56)
[2019-03-20] MEDS: DICYCLOMINE HCL 10 MG CAP PO SCH ×3 (13:13→20:18)
--- NOTE | 2019-03-20 14:01 | Gastroenterology Progress Note ---
Date of Service March 20, 2019 Assessment & Plan (1) Chronic abdominal pain: Due to conflict with need for ENT procedure with anesthesia today and because abd pain is not new, EGD was deferred, to be completed as an OP. This was ordered in [facility] and our office will notify the patient. (2) Cystic mass of pancreas: Would follow up stable 11mm cystic mass of the pancreas with pancreas CT or MRI in one yr as recommended by radiology. Of note, these do not cause pain and this is considered an incidental finding, though important to follow up. Imaging could be ordered by PCP and refer to GI if enlarging. Present on Admission?: Yes Supervising Physician Co-Signing Physician Notes I have discussed the management with HALI Yun. Outpatient EGD given chronicity of patient's abdominal pain (valente 6-7 years without associated alarm symptoms -weight loss, dysphagia, anemia). Office will contact her to schedule. Incidental finding of pancreatic cyst with follow-up MRI/MRCP recommended in 1 year. Seen by psychiatry today and per chart review- refusing further mental health assistance. GI will sign off. Subjective Ms. Damaris Miller is a 68 yr old female on whom we were consulted yesterday for abdominal pain and are following today. Pt report of symptoms - though told me black BMs- did not report this to other providers and non documented during this hospital stay. This morning - On interview/exam today pt reported chronic abdominal pain, but also tearful and very concerned about her ears (foreign body and procedure planned for today with sedation). Labs today (without receiving any blood products): Hb 14.2, Hct 41.5, BUN 5. Review of Systems Constitutional: + body aches, + weakness and + weight loss Ear, Nose, Mouth, Throat: " Sometimes ears don't work - can't hear." Respiratory: + cough; no chest congestion, no dyspnea and no wheezing Cardiovascular: + chest pain, + palpitations and + syncope; no edema Gastrointestinal: + abdominal pain, + bloating, + vomiting (reports vomiting up clear phlegm every morning) and + constipation (chronic, uses molasses with milk for a laxative); no hematemesis Physical Exam Constitutional: WD/WN, vitals as above + thin Eyes: PERRL, conjunctivae normal, anicteric sclerae ENMT: external ear and nose normal, oropharynx normal Neck: trachea midline, no thyromegaly Respiratory: normal respiratory effort, lungs clear to auscultation Cardiovascular: RRR, no murmur, no edema Musculoskeletal: Head/Neck/Chest: neck supple Extremities: + clubbing; no petechiae Skin: no rashes, warm and dry Neurologic: PERRL, EOMI, accommodation nl, no face palsy, no dysarthria Psychiatric: Orientation: alert and oriented x 3 Affect: + anxious affect Insight: + limited insight Lymphatic: no cervical or axillary lymphadenopathy Results & Data Vital Signs (Past 12 Hours) Vital Signs Temp Pulse Pulse Resp BP Pulse Ox 03/20/19 11:21 36.9 C 82 18 98 03/20/19 09:30 79 03/20/19 07:39 36.8 C 82 18 128/66 96 03/20/19 02:37 36.9 C 80 18 136/83 94 Laboratory Results WBC 6, Hb 14, Hct 41, [id number], Na 141, K 3.9, Ch 112, BUN 5, Cr 0.73. Diagnostic Findings CT abd/pelvis with IV contrast 03/19/19: 1. No change compared to prior study. 2. No bowel wall thickening or obstruction. 3. Normal appendix. 4. Stable 11 mm low-density lesion within the uncinate process of the pancreas. This favors a small side branch intraductal papillary mucinous neoplasm. One year MRCP follow-up can be performed to ensure stability.
--- NOTE | 2019-03-20 14:45 | Electroencephalogram ---
EEG Procedure Note Date of Service March 20, 2019 Start / End Times Start Time: 08:55 End Time: 09:[address] Rico Bruner History A 68 year old woman with recurrent syncope. EEG performed for evaluation of epileptiform activity. Home Medication List Home Medications Medication Instructions Recorded Confirmed Type aspirin [Aspirin Childrens] 81 mg PO DAILY 12/21/18 03/18/19 History metoprolol tartrate 50 mg PO QPM 02/04/19 03/18/19 History metoprolol tartrate 100 mg PO QAM 02/04/19 03/18/19 History Inpatient Medication List Aspirin (Ecotrin Ectab) 81 mg PO DAILY GENARO Stop: 04/18/19 08:59 Last Admin: 03/20/19 08:39 Dose: 81 mg Documented by: [id number] Admin: 03/19/19 09:50 Dose: 81 mg Documented by: [id number] Dicyclomine HCl (Bentyl) 10 mg PO QID GENARO Stop: 04/19/19 12:59 Last Admin: 03/20/19 13:13 Dose: 10 mg Documented by: [id number] Fondaparinux (Arixtra) 2.5 mg SQ DAILY GENARO Stop: 04/18/19 08:59 Last Admin: 03/20/19 08:39 Dose: 2.5 mg Documented by: [id number] Admin: 03/19/19 09:50 Dose: 2.5 mg Documented by: [id number] Metoprolol Tartrate (Lopressor) 100 mg PO BID GENARO Stop: 04/18/19 05:10 Last Admin: 03/20/19 08:39 Dose: 100 mg Documented by: [id number] Admin: 03/19/19 21:24 Dose: 100 mg Documented by: [id number] Admin: 03/19/19 06:06 Dose: 100 mg Documented by: [id number] Discontinued Medications Sodium Chloride (Nss) 500 mls @ 50 mls/hr IV .Q10H GENARO Stop: 04/18/19 00:29 Last Infusion: 03/19/19 05:17 Dose: 0 mls/hr Documented by: [id number] Admin: 03/19/19 00:32 Dose: 50 mls/hr Documented by: [id number] Potassium Chloride/Sodium Chloride (Normal Saline W/20 Meq Kcl) 20 meq in 1,000 mls @ 40 mls/hr IV .Q24H STA Stop: 03/20/19 05:10 Last Infusion: 03/20/19 07:06 Dose: 0 mls/hr Documented by: [id number] Admin: 03/19/19 06:06 Dose: 40 mls/hr Documented by: [id number] Ioversol (Optiray 320 100ml) 100 ml IV ONCE PRN PRN Reason: Interaction Checking Stop: 03/23/19 03:18 Last Admin: 03/19/19 03:19 Dose: 92 ml Documented by: [id number] Lorazepam (Ativan) Confirm Administered Dose 1 mg .ROUTE .STK-MED ONE Stop: 03/19/19 00:11 Last Admin: 03/19/19 00:16 Dose: 1 mg Documented by: [id number] Lorazepam (Ativan) 0.5 mg PO NOW STA Stop: 03/19/19 14:00 Last Admin: 03/19/19 14:10 Dose: 0.5 mg Documented by: [id number] Lorazepam (Ativan) 0.25 mg PO NOW STA Stop: 03/19/19 22:32 Last Admin: 03/19/19 22:36 Dose: 0.25 mg Documented by: [id number] Lorazepam (Ativan) 0.5 mg PO NOW STA Stop: 03/20/19 11:57 Last Admin: 03/20/19 12:07 Dose: 0.5 mg Documented by: [id number] Nitroglycerin (Nitrostat) 0.4 mg SL NOW STA Stop: 03/18/19 23:47 Last Admin: 03/19/19 00:17 Dose: 0.4 mg Documented by: [id number] Description This is a 21 electrode EEG with a single channel dedicated to limited EKG. The electrodes were placed in accordance with the International 10-20 system. REPORT: At the onset of the EEG, the patient is awake. The background activity consist of 8-9 Hz, persistent, posteriorly dominant, moderate amplitude, symmetric and rhythmic activity that is reactive to eye opening. Anteriorly, it consist of a mixture of low voltage indeterminate activity and 15-25 Hz, persistent, low amplitude, symmetric and rhythmic activity. Stepwise intermittent photic stimulation does not induce any abnormalities. Drowsiness is characterized by low amplitude mixed frequency activity, roving eye movements, and decreased eye blinking and muscle artifact. IMPRESSION: This is a normal awake and drowsy EEG. There is no evidence of focal slowing or epileptiform activity.
--- NOTE | 2019-03-20 14:51 | Psychiatric Consultation ---
Date of Consultation March 20, 2019 Psych History Chief Complaint "[]". Allergies Allergy/AdvReac Type Severity Reaction Status Date / Time atropine Allergy Severe castillo, hard Verified 03/18/19 23:46 time breathing clonidine Allergy Severe RAISES Unverified 03/18/19 23:46 B.P., ANXIOUSNESS diphenhydramine Allergy Severe "I ALMOST Verified 03/18/19 23:46 ." hyoscyamine Allergy Severe castillo, hard Verified 03/18/19 23:46 time breathing labetalol Allergy Severe selling,loss Verified 03/18/19 23:46 of taste,itch, rash phenobarbital Allergy Severe castillo, hard Verified 03/18/19 23:46 time breathing prednisone Allergy Severe Edema Verified 03/18/19 23:46 face,lips and tongue. scopolamine Allergy Severe castillo, hard Verified 03/18/19 23:46 time breathing enoxaparin Allergy Intermediate RASH Verified 03/18/19 23:46 levofloxacin Allergy Intermediate ARM TURNED Verified 03/18/19 23:46 "FIREY RED" WHEN INFUSED, CLEARED IN A FEW HOURS tramadol Allergy Intermediate blisters Verified 03/18/19 23:46 all over warfarin Allergy Intermediate rash Verified 03/18/19 23:46 chlorpromazine Allergy Mild TOLERATING Verified 03/18/19 23:46 PROLIXIN AT HOME 01/15/08 Penicillins Allergy Mild Unknown Verified 03/18/19 23:46 coumarin Allergy Unknown UNKNOWN Verified 03/18/19 23:46 naproxen Allergy Unknown Unknown Verified 03/18/19 23:46 morphine AdvReac Severe SHOCK;TOLERATES Verified 03/18/19 23:46 DEMEROL aspirin AdvReac Intermediate BLEEDING Verified 03/18/19 23:46 codeine AdvReac Intermediate BP DROPS Verified 03/18/19 23:46 AND PASSES OUT dicyclomine AdvReac Intermediate GI SYMPTOMS Verified 03/18/19 23:46 hydralazine AdvReac Intermediate palpitations Verified 03/19/19 06:19 as per px ibuprofen AdvReac Intermediate BLEEDING Verified 03/18/19 23:46 amitriptyline AdvReac Mild Nausea/vomi Verified 03/18/19 23:46 timg lisinopril AdvReac Mild COUGH Verified 03/18/19 23:46 nitrofurantoin AdvReac Unknown hallucinati Verified 03/18/19 23:46 ng Home Medications Home Medications Medication Instructions Recorded Confirmed Type aspirin [Aspirin Childrens] 81 mg PO DAILY 12/21/18 03/18/19 History metoprolol tartrate 50 mg PO QPM 02/04/19 03/18/19 History metoprolol tartrate 100 mg PO QAM 02/04/19 03/18/19 History Personal History Beliefs That Will Affect Care: None Patient History Medical History DVT (deep venous thrombosis) (Chronic) Posttraumatic stress disorder (Chronic 01/14/13) COPD (chronic obstructive pulmonary disease) (Chronic) Hypertension (Chronic) Schizoaffective disorder (Chronic 01/22/12) Tobacco abuse (Chronic) H/O drug abuse (Chronic) Hypertensive urgency (Resolved) High blood pressure (Chronic) Surgical History History of cystoscopy (Chronic) History of inferior vena caval filter placement (Chronic) Family History Father Myocardial infarction, Onset Age: 66 Diabetes Mother Stroke Colorectal cancer Other Family history non-contributory Social History Preferred Language: Greenlandic Communication Ability: Effective Visual Impairment: No Limitations Hearing Ability: Normal 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 Beliefs That Will Affect Care: None marital status: Single Current Living Situation: Alone Current Living Situation Comment: Living in apartment in [place] Other Information That Helps Us Care for You: No Feels Safe at Home: Yes Safety Concerns: Feels Safe At This Time Smoking Status: Current some day smoker Tobacco Type: cigarettes ; Cigarettes Per Day: "one pack every 2 weeks ; Do You Dip or Chew Tobacco: No ; Second Hand Exposure: No ; Tobacco Cessation Education Requested by Patient: No Hx Alcohol Use: No Hx Substance Use: No Physical Exam Vital Signs (Past 24 Hours): Last Vital Signs Temp 36.9 C 03/20/19 11:21 Pulse 82 03/20/19 11:21 Resp 18 03/20/19 11:21 BP 128/66 03/20/19 07:39 Pulse Ox 98 03/20/19 11:21 Results & Data Medications Administered Aspirin (Ecotrin Ectab) 81 mg PO DAILY [facility] Stop: 04/18/19 08:59 Last Admin: 03/20/19 08:39 Dose: 81 mg Documented by: [id number] Admin: 03/19/19 09:50 Dose: 81 mg Documented by: [id number] Dicyclomine HCl (Bentyl) 10 mg PO QID [facility] Stop: 04/19/19 12:59 Last Admin: 03/20/19 13:13 Dose: 10 mg Documented by: [id number] Fondaparinux (Arixtra) 2.5 mg SQ DAILY [facility] Stop: 04/18/19 08:59 Last Admin: 03/20/19 08:39 Dose: 2.5 mg Documented by: [id number] Admin: 03/19/19 09:50 Dose: 2.5 mg Documented by: [id number] Metoprolol Tartrate (Lopressor) 100 mg PO BID [facility] Stop: 04/18/19 05:10 Last Admin: 03/20/19 08:39 Dose: 100 mg Documented by: [id number] Admin: 03/19/19 21:24 Dose: 100 mg Documented by: [id number] Admin: 03/19/19 06:06 Dose: 100 mg Documented by: [id number]
--- NOTE | 2019-03-20 15:06 | History & Physical Bridge Note ---
Date of Service March 20, 2019 History & Physical Bridge Note I have examined the patient, reviewed the History & Physical and in the interval since the performance of the History & Physical I have noted the following changes of clinical significance: no changes noted
--- NOTE | 2019-03-20 15:54 | Operative Report ---
Post Operative Report Pre & Post Diagnosis Operation Date: 03/20/19 08:30 <No data on this case meets the specified criteria> Operation Date: 03/20/19 10:40 Pre-Op Diagnosis: foreign body left ear Post-Op Diagnosis: foreign body left ear Procedure Operation Date: 03/20/19 08:30 <No data on this case meets the specified criteria> Operation Date: 03/20/19 10:40 Actual Procedures p removal foreign body left ear(Left) - Bree Cazares MD Surgeon Bree Cazares MD Hired Hand None Estimated Blood Loss 0 Findings Consistent with Post-Op Diagnosis Specimens None Anesthesia Type RN Sedation Complications none Disposition Accompanied Patient To Recovery: Yes Disposition: PCU Indications Foreign body left ear Description of Procedure She was brought to the operating room in her bed. The left ear was visualized with the microscope. The foreign body was a orange piece of putty which was removed using the right angle pick. Cerumen was also removed she tolerated the procedure well was taken back to the floor. I attest to the content of the Intraoperative Record and any orders documented therein. Any exceptions are noted below.
--- NOTE | 2019-03-20 16:23 | Psychiatric Consultation ---
Date of Consultation March 20, 2019 Psych History History of Present Illness Date of Service: March 20, 2019 Psychiatric Consultation was requested to evaluated patient. Attempts were made to meet with the patient who is reportedly in the OR having a procedure performed to remove foreign bodies from her ears. It was unclear how long this procedure would take and she is reportedly to be transferred to another floor after. As it is unclear that patient will even be able to be adequately assessed in her post-operative. Will have to complete evaluation tomorrow in order to fully obtain reliable history. Please see psychiatric liaison note regarding history obtained this morning before the patient's procedure. Patient indicated during that evaluation that she has been stable off psychiatric medications for the past 6 years, and does not feel the need or have the desire to resume psychotropic medications. Reports of hopelessness appears to be isolated to the patient's frustration with her medical conditions. Will obtain additional information upon formal psychiatric evaluation. Allergies Allergy/AdvReac Type Severity Reaction Status Date / Time atropine Allergy Severe castillo, hard Verified 03/18/19 23:46 time breathing clonidine Allergy Severe RAISES Unverified 03/18/19 23:46 B.P., ANXIOUSNESS diphenhydramine Allergy Severe "I ALMOST Verified 03/18/19 23:46 ." hyoscyamine Allergy Severe castillo, hard Verified 03/18/19 23:46 time breathing labetalol Allergy Severe selling,loss Verified 03/18/19 23:46 of taste,itch, rash phenobarbital Allergy Severe castillo, hard Verified 03/18/19 23:46 time breathing prednisone Allergy Severe Edema Verified 03/18/19 23:46 face,lips and tongue. scopolamine Allergy Severe castillo, hard Verified 03/18/19 23:46 time breathing enoxaparin Allergy Intermediate RASH Verified 03/18/19 23:46 levofloxacin Allergy Intermediate ARM TURNED Verified 03/18/19 23:46 "FIREY RED" WHEN INFUSED, CLEARED IN A FEW HOURS tramadol Allergy Intermediate blisters Verified 03/18/19 23:46 all over warfarin Allergy Intermediate rash Verified 03/18/19 23:46 chlorpromazine Allergy Mild TOLERATING Verified 03/18/19 23:46 PROLIXIN AT HOME 01/15/08 Penicillins Allergy Mild Unknown Verified 03/18/19 23:46 coumarin Allergy Unknown UNKNOWN Verified 03/18/19 23:46 naproxen Allergy Unknown Unknown Verified 03/18/19 23:46 morphine AdvReac Severe SHOCK;TOLERATES Verified 03/18/19 23:46 DEMEROL aspirin AdvReac Intermediate BLEEDING Verified 03/18/19 23:46 codeine AdvReac Intermediate BP DROPS Verified 03/18/19 23:46 AND PASSES OUT dicyclomine AdvReac Intermediate GI SYMPTOMS Verified 03/18/19 23:46 hydralazine AdvReac Intermediate palpitations Verified 03/19/19 06:19 as per px ibuprofen AdvReac Intermediate BLEEDING Verified 03/18/19 23:46 amitriptyline AdvReac Mild Nausea/vomi Verified 03/18/19 23:46 timg lisinopril AdvReac Mild COUGH Verified 03/18/19 23:46 nitrofurantoin AdvReac Unknown hallucinati Verified 03/18/19 23:46 ng Home Medications Home Medications Medication Instructions Recorded Confirmed Type aspirin [Aspirin Childrens] 81 mg PO DAILY 12/21/18 03/18/19 History metoprolol tartrate 50 mg PO QPM 02/04/19 03/18/19 History metoprolol tartrate 100 mg PO QAM 02/04/19 03/18/19 History Patient History Medical History DVT (deep venous thrombosis) (Chronic) Posttraumatic stress disorder (Chronic 01/14/13) COPD (chronic obstructive pulmonary disease) (Chronic) Hypertension (Chronic) Schizoaffective disorder (Chronic 01/22/12) Tobacco abuse (Chronic) H/O drug abuse (Chronic) Hypertensive urgency (Resolved) High blood pressure (Chronic) Surgical History History of cystoscopy (Chronic) History of inferior vena caval filter placement (Chronic) Family History Father Myocardial infarction, Onset Age: 66 Diabetes Mother Stroke Colorectal cancer Other Family history non-contributory Social History Preferred Language: Swedish Communication Ability: Effective Visual Impairment: No Limitations Hearing Ability: Normal Parts Facilitator Required: No Beliefs That Will Affect Care: None marital status: Single Current Living Situation: Alone Current Living Situation Comment: Living in apartment in [place] Other Information That Helps Us Care for You: No Feels Safe at Home: Yes Safety Concerns: Feels Safe At This Time Smoking Status: Current some day smoker Tobacco Type: cigarettes ; Cigarettes Per Day: "one pack every 2 weeks ; Do You Dip or Chew Tobacco: No ; Second Hand Exposure: No ; Tobacco Cessation Education Requested by Patient: No Hx Alcohol Use: No Hx Substance Use: No Physical Exam Vital Signs (Past 24 Hours): Last Vital Signs Temp 36.5 C 03/20/19 15:57 Pulse 71 03/20/19 15:57 Resp 18 03/20/19 15:57 BP 172/95 H 03/20/19 15:57 Pulse Ox 99 03/20/19 15:57 Results & Data Medications Administered Aspirin (Ecotrin Ectab) 81 mg PO DAILY [facility] Stop: 04/18/19 08:59 Last Admin: 03/20/19 08:39 Dose: 81 mg Documented by: [id number] Admin: 03/19/19 09:50 Dose: 81 mg Documented by: [id number] Dicyclomine HCl (Bentyl) 10 mg PO QID [facility] Stop: 04/19/19 12:59 Last Admin: 03/20/19 13:13 Dose: 10 mg Documented by: [id number] Fondaparinux (Arixtra) 2.5 mg SQ DAILY [facility] Stop: 04/18/19 08:59 Last Admin: 03/20/19 08:39 Dose: 2.5 mg Documented by: [id number] Admin: 03/19/19 09:50 Dose: 2.5 mg Documented by: [id number] Metoprolol Tartrate (Lopressor) 100 mg PO BID [facility] Stop: 04/18/19 05:10 Last Admin: 03/20/19 08:39 Dose: 100 mg Documented by: [id number] Admin: 03/19/19 21:24 Dose: 100 mg Documented by: [id number] Admin: 03/19/19 06:06 Dose: 100 mg Documented by: [id number]
--- NOTE | 2019-03-20 17:13 | Hospitalist Progress Note ---
Date of Service March 20, 2019 Assessment & Plan (1) Left-sided chest pain: Likely due to Hypertensive urgency V/Q scan: Normal ? Medication compliance Troponin X 2: Negative EKG: Non specific T wave changes Appreciate Cardiology Input Continue Metoprolol Adjust HTN meds as needed Chronic abdominal pain ? Melena H/O IBS --CT ABD:No change compared to prior study. No bowel wall thickening or obstruction. Normal appendix. Stable 11 mm low-density lesion within the uncinate process of the pancreas. This favors a small side branch intraductal papillary mucinous neoplasm. One year MRCP follow-up can be performed to ensure stability. Appreciate GI Input EGD as outpatient Needs MRCP in 1 yr for evaluation of lesion within the uncinate process of the pancreas Hb stable Decreasing Hearing Foreign body sensation Appreciate ENT Input S/P foreign body removal from left ear H/O DVT/PE S/P IVC filter H/O Recurrent syncope R/O orthostasis, seizure disorder No arrhythmias on Tele EEG:his is a normal awake and drowsy EEG. There is no evidence of focal slowing or epileptiform activity. Bipolar Disorder Chronic pain/drug dependence as per records Ongoing tobacco abuse Psychiatry consulted for Input Urine toxicology: Normal DVT Px: Arixtra SQ Code Status Full code Disposition: To be determined Subjective Patient is seen and examined at bedside Expresses frustration about chronic symptoms which have been uncontrolled Had foreign body removal from left ear by Dr. Cazares No chest pain today Anxious about the procedure and reports chronic abd pain Review of Systems Review of Systems: All systems reviewed & are unremarkable except as noted in HPI & below Physical Exam Physical Exam: Physical Exam: Vitals signs as noted above General Appearance:Thin, Anxious Head: normocephalic, Atraumatic Eyes: normal inspection, EOMI Neck: supple, Trachea midline Respiratory/Chest: Decreased breath sounds, CTA Cardiovascular: S1, S2, No murmur Abdomen/GI:Soft, Generalized tender, Bowel sounds present Extremities/Musculoskelatal:normal inspection, no edema Neurologic/Psych:AAOX3, grossly no focal neurological deficits, +Bipolar Skin: normal color, warm Results & Data Vital Signs (Past 12 Hours) Vital Signs Temp Pulse Pulse Pulse Resp BP BP 03/20/19 16:52 36.5 C 86 20 173/96 H 03/20/19 15:57 36.5 C 71 18 03/20/19 15:36 82 211/94 H 03/20/19 15:31 90 193/107 H 03/20/19 14:55 36.8 C 90 20 03/20/19 11:21 36.9 C 82 18 03/20/19 09:30 79 03/20/19 07:39 36.8 C 82 18 BP Pulse Ox 03/20/19 16:52 99 03/20/19 15:57 172/95 H 99 03/20/19 15:36 100 03/20/19 15:31 100 03/20/19 14:55 174/88 H 100 03/20/19 11:21 98 03/20/19 09:30 03/20/19 07:39 128/66 96 Laboratory Results Short CBC 03/20/19 Range/Units 06:22 WBC 6.96 (4.8-10.8) K/uL Hgb 14.2 (12.0-16.0) g/dL Hct 41.5 (37-47) % Plt Count 325 (130-400) K/uL BMP 03/20/19 06:22 Sodium 141 Potassium 3.9 Chloride 112 H Carbon Dioxide 22 BUN 5 L Creatinine 0.73 Glucose 84 Calcium 9.0
[2019-03-20] MEDS ORDERED: LORazepam 0.5 MG TAB PO PRN (20:33)
[2019-03-21 06:19] LABS: Hematocrit (blood only) 42.9 % (37-47); Hemoglobin 14.6 g/dL (12.0-16.0); Mean Corpuscular Hemoglobin 31.4 pg (25-34); Mean Corpuscular Volume 92.3 fL (80-100); Mean Platelet Volume 9.5 fL (7.4-10.4); Platelet Count 323 K/uL (130-400); RDW Coefficient of Variation 13.4 % (11.5-14.5); Red Blood Count 4.65 M/uL (4.2-5.4); White Blood Count 7.25 K/uL (4.8-10.8)
[2019-03-21 06:46] LABS: BUN Creatinine Ratio 9.6 (10-20); Calcium 9.2 mg/dl (8.5-10.1); Creatinine Clr Calc Pharmacy 50.9 ml/min; Est GFR (African American) 81.6; Est GFR (Non-African American) 70.4; Potassium 3.8 mmol/L (3.5-5.1)
[2019-03-21] MEDS: DICYCLOMINE HCL 10 MG CAP PO SCH ×4 (08:44→22:18)
[2019-03-21] MEDS: ASPIRIN 81 MG ECTAB PO SCH (08:44)
[2019-03-21] MEDS: METOPROLOL TARTRATE 50 MG TAB PO SCH ×2 (08:44→22:18)
[2019-03-21] MEDS: FONDAPARINUX 2.5 MG/0.5 ML SYR SQ SCH (08:45)
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
--- NOTE | 2019-03-21 17:47 | Hospitalist Progress Note ---
Date of Service March 21, 2019 Assessment & Plan (1) Left-sided chest pain: Likely due to Hypertensive urgency V/Q scan: Normal ? Medication compliance Troponin X 2: Negative EKG: Non specific T wave changes Appreciate Cardiology Input Continue Metoprolol Blood pressure variable likely secondary to anxiety Chronic abdominal pain ? Melena H/O IBS --CT ABD:No change compared to prior study. No bowel wall thickening or obstruction. Normal appendix. Stable 11 mm low-density lesion within the uncinate process of the pancreas. This favors a small side branch intraductal papillary mucinous neoplasm. One year MRCP follow-up can be performed to ensure stability. Appreciate GI Input EGD as outpatient Needs MRCP in 1 yr for evaluation of lesion within the uncinate process of the pancreas Hb stable Continue Bentyl Could have underlying somatoform disorder Decreasing Hearing Foreign body sensation Appreciate ENT Input S/P foreign body removal from left ear May need follow up with ENT a soutpatient H/O DVT/PE S/P IVC filter H/O Recurrent syncope R/O orthostasis, seizure disorder No arrhythmias on Tele EEG:his is a normal awake and drowsy EEG. There is no evidence of focal slowing or epileptiform activity. Schizoaffective Disorder Suspected somatoform disorder, PTSD Chronic pain/drug dependence as per records Ongoing tobacco abuse Appreciate Psychiatry Input Urine toxicology: Normal Patient refuses behavioral health admission or medications Plan to start on low dose Remeron at bedtime if patient agrees Will avoid [employer] as able DVT Px: Arixtra SQ Code Status Full code Disposition: Expect to discharge home Subjective Patient is seen and examined at bedside still has decreased hearing, denies pain Has chronic abd pain Anxious intermittently, likely contributing to viable blood pressure Review of Systems Review of Systems: All systems reviewed & are unremarkable except as noted in HPI & below Physical Exam Physical Exam: Physical Exam: Vitals signs as noted above General Appearance:Thin, Anxious Head: normocephalic, Atraumatic Eyes: normal inspection, EOMI Neck: supple, Trachea midline Respiratory/Chest: Decreased breath sounds, CTA Cardiovascular: S1, S2, No murmur Abdomen/GI:Soft, Generalized tender, Bowel sounds present Extremities/Musculoskelatal:normal inspection, no edema Neurologic/Psych:AAOX3, grossly no focal neurological deficits, +Schizoaffective disorder Skin: normal color, warm Results & Data Vital Signs (Past 12 Hours) Vital Signs Temp Pulse Resp BP Pulse Ox 03/21/19 16:04 36.5 C 82 18 164/98 H 99 03/21/19 12:00 36.4 C L 72 18 162/78 H 99 Laboratory Results Short CBC 03/21/19 Range/Units 05:57 WBC 7.25 (4.8-10.8) K/uL Hgb 14.6 (12.0-16.0) g/dL Hct 42.9 (37-47) % Plt Count 323 (130-400) K/uL BMP 03/21/19 05:57 Sodium 137 Potassium 3.8 Chloride 108 H Carbon Dioxide 23 BUN 8 Creatinine 0.86 Glucose 87 Calcium 9.2
[2019-03-22] MEDS: ASPIRIN 81 MG ECTAB PO SCH (08:30)
[2019-03-22] MEDS: FONDAPARINUX 2.5 MG/0.5 ML SYR SQ SCH (08:30)
[2019-03-22] MEDS: DICYCLOMINE HCL 10 MG CAP PO SCH ×2 (08:31→13:56)
[2019-03-22] MEDS: METOPROLOL TARTRATE 50 MG TAB PO SCH (08:31)
--- NOTE | 2019-03-22 12:28 | Hospitalist Progress Note ---
Date of Service March 22, 2019 Assessment & Plan (1) Left-sided chest pain: Likely due to Hypertensive urgency V/Q scan: Normal ? Medication compliance Troponin X 2: Negative EKG: Non specific T wave changes Appreciate Cardiology Input Continue Metoprolol Blood pressure variable likely secondary to anxiety Chronic abdominal pain ? Melena H/O IBS --CT ABD:No change compared to prior study. No bowel wall thickening or obstruction. Normal appendix. Stable 11 mm low-density lesion within the uncinate process of the pancreas. This favors a small side branch intraductal papillary mucinous neoplasm. One year MRCP follow-up can be performed to ensure stability. Appreciate GI Input EGD as outpatient scheduled Needs MRCP in 1 yr for evaluation of lesion within the uncinate process of the pancreas Hb stable Continue Bentyl PRN Could have underlying somatoform disorder Decreasing Hearing Foreign body sensation Appreciate ENT Input S/P foreign body removal from left ear May need follow up with ENT as outpatient H/O DVT/PE S/P IVC filter H/O Recurrent syncope No recurrence during hospitalization No arrhythmias on Tele EEG:his is a normal awake and drowsy EEG. There is no evidence of focal slowing or epileptiform activity. Schizoaffective Disorder Suspected somatoform disorder, PTSD Chronic pain/drug dependence as per records Ongoing tobacco abuse Appreciate Psychiatry Input Urine toxicology: Normal Patient refuses behavioral health admission or medications Plan to start on low dose Remeron at bedtime if patient agrees Will avoid [employer] as able DVT Px: Arixtra SQ Code Status Full code Disposition: Expect to discharge home Subjective Patient is seen and examined at bedside Reports chronic intermittent abdominal pain No distress on exam Explained her condition in detail Hearing seems to be improving Denies any chest pain, SOB, dizziness, nausea, ear pain Review of Systems Review of Systems: All systems reviewed & are unremarkable except as noted in HPI & below Physical Exam Physical Exam: Physical Exam: Vitals signs as noted above General Appearance:Thin, No apparent distress Head: normocephalic, Atraumatic Eyes: normal inspection, EOMI Neck: supple, Trachea midline Respiratory/Chest: Normal breath sounds, CTA Cardiovascular: S1, S2, No murmur Abdomen/GI:Soft, no guarding/rigidity, mild tender subjectively (No distress on exam), Bowel sounds present Extremities/Musculoskelatal:normal inspection, no edema Neurologic/Psych:AAOX3, grossly no focal neurological deficits, +Schizoaffective disorder Skin: normal color, warm Results & Data Vital Signs (Past 12 Hours) Vital Signs Temp Pulse Resp BP Pulse Ox 03/22/19 12:09 36.5 C 66 18 105/51 L 97 03/22/19 07:40 36.5 C 66 18 105/51 L 97
[2019-03-22] MEDS ORDERED: Nursing to Pharmacy Communication ONE (12:35)
--- NOTE | 2019-03-22 12:58 | Discharge Summary ---
Date of Service March 22, 2019 Admission HPI Per Admitting Provider Patient admitted through ER with multiple medical complaints. Has been seen by GI and cardiology. It appears complaint of chest pain felt likely secondary to hypertensive urgency and her antihypertensive adjusted. Troponins negative. EKG showed nonspecific T wave changes. History of IBS noted. EGD as outpatient has been recommended. Foreign body removed from left ear canal. No acute process on head CT. EEG normal. On interview with psychiatric liaison nurse, patient noted difficulty sleeping and noted feelings of hopelessness associated with medical condition as well as associated anxiety but denied self-injurious impulses. On interview with me today she describes relative social isolation in her apartment in [place] however she states this is her preference. She does demonstrate some likely degree of paranoia as she feels that those around her are not trustworthy however she describes this in relatively realistic terms such as awareness of crime and drug use in the area. She denies suicidal ideation, self-injurious behavior, or thoughts of harm to others. She does acknowledge feeling anxious, scared, and sad at times. She attributes most of her emotional distress to her declining physical condition. Primary complaints are shortness of breath, chest pain, and abdominal discomfort. She does like the Ativan that she has been given here as as needed however she has a history of abusing benzodiazepines and opioids. She is resistant to considering an antidepressant trial. She denies inability to meet ADLs in home setting. Admission Exam Per Admitting Provider GENERAL: uncomfortable, anxious, no respiratory distress SKIN: Normal color, warm HEENT: [place] palpebral conjunctivae, no ptosis, dry buccal mucosa; Impacted cerumen, AD Cobb silicone-like foreign body, NECK : Supple, no tenderness CHEST : Decreased breath sounds , no tenderness HEART : Tachycardic , no obvious murmurs ABDOMEN: Some distention, right-sided abdominal tenderness RECTAL : Intact sphincter, yellow stool (FOBT negative) EXTREMITIES : No LE swelling, IV access sites RLE and LUE, no other conspicuous deformities noted NEUROLOGIC : Coherent, no facial asymmetry, no other gross focality Principal Diagnosis Discharge Information Discharge Diagnosis Hypertensive Urgency Chronic Abdominal Pain Syncope Discharge Goals Decrease discomfort,Improve function,Improve disease control,Diagnostic testing,Learn about illness Discharge Activity Limitations Resume your previous activity Discharge Data Allergies Allergy/AdvReac Type Severity Reaction Status Date / Time atropine Allergy Severe castillo, hard Verified 03/18/19 23:46 time breathing clonidine Allergy Severe RAISES Unverified 03/18/19 23:46 B.P., ANXIOUSNESS diphenhydramine Allergy Severe "I ALMOST Verified 03/18/19 23:46 ." hyoscyamine Allergy Severe castillo, hard Verified 03/18/19 23:46 time breathing labetalol Allergy Severe selling,loss Verified 03/18/19 23:46 of taste,itch, rash phenobarbital Allergy Severe castillo, hard Verified 03/18/19 23:46 time breathing prednisone Allergy Severe Edema Verified 03/18/19 23:46 face,lips and tongue. scopolamine Allergy Severe castillo, hard Verified 03/18/19 23:46 time breathing enoxaparin Allergy Intermediate RASH Verified 03/18/19 23:46 levofloxacin Allergy Intermediate ARM TURNED Verified 03/18/19 23:46 "FIREY RED" WHEN INFUSED, CLEARED IN A FEW HOURS tramadol Allergy Intermediate blisters Verified 03/18/19 23:46 all over warfarin Allergy Intermediate rash Verified 03/18/19 23:46 chlorpromazine Allergy Mild TOLERATING Verified 03/18/19 23:46 PROLIXIN AT HOME 01/15/08 Penicillins Allergy Mild Unknown Verified 03/18/19 23:46 coumarin Allergy Unknown UNKNOWN Verified 03/18/19 23:46 naproxen Allergy Unknown Unknown Verified 03/18/19 23:46 morphine AdvReac Severe SHOCK;TOLERATES Verified 03/18/19 23:46 DEMEROL aspirin AdvReac Intermediate BLEEDING Verified 03/18/19 23:46 codeine AdvReac Intermediate BP DROPS Verified 03/18/19 23:46 AND PASSES OUT dicyclomine AdvReac Intermediate GI SYMPTOMS Verified 03/18/19 23:46 hydralazine AdvReac Intermediate palpitations Verified 03/19/19 06:19 as per px ibuprofen AdvReac Intermediate BLEEDING Verified 03/18/19 23:46 amitriptyline AdvReac Mild Nausea/vomi Verified 03/18/19 23:46 timg lisinopril AdvReac Mild COUGH Verified 03/18/19 23:46 nitrofurantoin AdvReac Unknown hallucinati Verified 03/18/19 23:46 ng Consultations 03/19/19 01:34 ED Decision to Admit Stat 03/19/19 10:20 Consult Cardiology Routine Consult Gastroenterology Routine 03/19/19 12:41 Consult Otolaryngology (Head and Neck) Routine 03/19/19 15:41 Consult Psychiatry Routine 03/22/19 11:54 Consult Case Management - Discharge Planning Routine Procedures Performed Operation Date: 03/20/19 08:30 <No data on this case meets the specified criteria> Operation Date: 03/20/19 10:40 Actual Procedures p removal foreign body left ear(Left) - Bree Cazares MD CXR: Negative chest. CT ABD: 1. No change compared to prior study. 2. No bowel wall thickening or obstruction. 3. Normal appendix. 4. Stable 11 mm low-density lesion within the uncinate process of the pancreas. This favors a small side branch intraductal papillary mucinous neoplasm. One year MRCP follow-up can be performed to ensure stability. 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 Findings are unchanged. No acute intracranial abnormality. V/Q Scan: Normal study. Ordered Studies 03/19/19 02:49 CT abd pelvis IV con only Urgent CT head/brain wo con Urgent Hospital Course (1) Left-sided chest pain: Likely due to Hypertensive urgency V/Q scan: Normal ? Medication compliance Troponin X 2: Negative EKG: Non specific T wave changes Appreciate Cardiology Input Continue Metoprolol Blood pressure variable likely secondary to anxiety Chronic abdominal pain ? Melena H/O IBS --CT ABD:No change compared to prior study. No bowel wall thickening or obstruction. Normal appendix. Stable 11 mm low-density lesion within the uncinate process of the pancreas. This favors a small side branch intraductal papillary mucinous neoplasm. One year MRCP follow-up can be performed to ensure stability. Appreciate GI Input EGD as outpatient scheduled Needs MRCP in 1 yr for evaluation of lesion within the uncinate process of the pancreas Hb stable Continue Bentyl PRN Could have underlying somatoform disorder Decreasing Hearing Foreign body sensation Appreciate ENT Input S/P foreign body removal from left ear May need follow up with ENT as outpatient H/O DVT/PE S/P IVC filter H/O Recurrent syncope No recurrence during hospitalization No arrhythmias on Tele EEG:his is a normal awake and drowsy EEG. There is no evidence of focal slowing or epileptiform activity. Schizoaffective Disorder Suspected somatoform disorder, PTSD Chronic pain/drug dependence as per records Ongoing tobacco abuse Appreciate Psychiatry Input Urine toxicology: Normal Patient refuses behavioral health admission or medications Plan to start on low dose Remeron at bedtime if patient agrees Will avoid [employer] as able DVT Px: Arixtra SQ Code Status Full code Disposition: Expect to discharge home Total Time Total Time Spent Total Time Spent (In Minutes): 41 minutes Total Time Includes: Examination of the Patient, Discharge Planning, Medication Reconciliation, Communication With Other Providers and Other Discharge Plan Discharge Items Patient Disposition: Home - Self-Care Reason For Visit: CHEST PAIN Discharge Diagnosis: Hypertensive Urgency Chronic Abdominal Pain Syncope Discharge Goals: Decrease discomfort, Diagnostic testing, Improve disease control, Improve function and Learn about illness Activity: Resume your previous activity Exercise/Sports: Gradually increase as tolerated Non-emergency contact: Primary Care Provider, Surgeon and Spray Rig Operator Call non-emergency contact if: you have any medication questions, your symptoms worsen, your pain is not controlled, your pain is worsening, your pain is unusual for you, your pain is concerning for you and you have a fever Follow-up/Referrals: Brett Lopez DO [Primary Care Provider] - Diet: Heart Healthy Add Provider Instructions: Follow up with your PCP at [facility] in 1 week as advised Follow up with your ENT in 2-4 weeks as advised Follow up with your Spray Rig Operator for EGD as outpatient Consider following with your Psychiatrist as advised Seek immediate medical attention if your symptoms reoccur or worsen Prescriptions: New mirtazapine 15 mg Tablet 15 mg PO HS 15 Days Qty: 15 RF: 0 dicyclomine 10 mg Capsule 10 mg PO QID PRN (Reason: Abdominal Pain) Qty: 30 RF: 0 metoprolol tartrate 100 mg tablet 100 mg PO BID Qty: 60 RF: 0 Continued aspirin [Aspirin Childrens] 81 mg Tablet,Chewable 81 mg PO DAILY Qty: 30 RF: 0 Discontinued metoprolol tartrate 50 mg tablet 50 mg PO QPM RF: 0 metoprolol tartrate 50 mg tablet 100 mg PO QAM RF: 0 Stand-Alone Forms: [employer]/Other Patient Handouts: Eat Healthy Discharge Orders: Discharge Order (Routine); Ordered 03/22/19 Ordered By: Kai Sebastian Admission Data Admit Date/Time: 03/19/19 03:54 Attending Provider: Kai Sebastian Admit Provider: Rcio Bruner Primary Care Provider: Brett Lopez Other Providers: Rico Bruner ; Andrew Rm ; Swetha Nicole ; Bree Cazares ; Saba Tucker Service: Medical Other Interventions: Discharge Summary Assessment (RN) Last Done: 03/22/19 12:09 Pending Studies at Discharge: No DC Date/Time DO NOT enter until pt leaves facility: 03/22/19 14:24
[2019-03-22] MEDS ORDERED: MIRTAZAPINE TAB 15 MG TAB PO SCH ×2 (14:00→21:00)
[2019-03-22] MEDS ORDERED: DICYCLOMINE HCL 10 MG CAP PO SCH (14:00)
[2019-03-22] MEDS ORDERED: ASPIRIN 81 MG ECTAB PO SCH (14:00)
[2019-03-22] MEDS ORDERED: METOPROLOL TARTRATE 50 MG TAB PO SCH (14:00)
== END 2019-03-22 14:24 | disposition home or self-care (01) ==
LOC: ED 23:08 → 2S 23:08 → 3W 03-20 14:26

== ENCOUNTER 2021-02-28 22:46 | Inpatient (IN) ==
[2021-02-28] MEDS ORDERED: SODIUM CHLORIDE 0.9% 1000ML 1,000 ML IV ONE (23:53)
[2021-02-28] MEDS ORDERED: fentaNYL citrate 100 MCG/2 ML VIAL IV STA (23:53)
[2021-02-28] MEDS ORDERED: ONDANSETRON INJ 2 MG/ML 2 ML VIAL IV STA (23:58)
--- NOTE | 2021-02-28 23:58 | Emergency Department Note ---
Impression & Plan Epigastric abdominal pain, Hematemesis, Intractable vomiting ED Provider Note Name: ROBBY AGUILAR Age: 70 Sex: F Arrives Via: Ambulance Informant: Patient ED Provider: Ron Frazier MD Chief Complaint: abdominal pain Impression: See Above Medical Decision Makin yr old female with extensive PMH including extensive medical and psychiatric history who arrives with extensive array of complaints, though of note she is vomiting up small amounts of blood and complaining of severe epigastric pain. Known to me from previous visits as well as 2 weeks ago when seen for sinus infection and some GI symptoms at that time. Work up including labs, ct imaging chest/a/p, relatively unremarkable. She does not have peritonitis. That said, with persistent pain, hematemesis and her complex history I suspect that she will not do well from outpatient standpoint and is at risk of further decompensation. Likely GI bleed from ulcer thus treated with protonix and pain/nausea controlled. Hospitalist consulted for further management. Prior Medical Record and Triage/Nursing Notes reviewed by Me Additional history obtained from chart Differentials:UGI Bleed, PUD, Perforated Ulcer, Pneumonia, Infection, dehydration, metabolic abnormality, hypo/hyperglycemia, electrolyte disturbance, anemia, hypoxia, cardiac sources, intracerebral event, toxicologic, neurologic, as well as other pathologies. Vital Signs: reviewed and remarkable for HTN Interventions: saline lock, ativan 1mg iv x 2, fentanyl 50mcg iv, nss bolus, protonix 80mg iv Labs:Reviewed and remarkable for no significant abnormalities Imaging:[facility] Radiologist interpretation reviewed by me: ct c/a/p Consults:Dr Adelia Michel Hospitalist Plan: Disposition:Hospitalization. Condition: Good History of Present Illness:70 yr old female arrives for evaluation of epigastric pain. Patient notes several months wrosening total body pain. A ssociated productive cough, epigastric pain, runny nose, body aches, fatigue, and illness. She believes she is also having fevers. States she feels like she is going to pass out. Tonight with vomiting and dry heaving and believes she saw blood in emesis earlier today. Pain epigastrium now radiates to her back. Was on Zpack last week with initial improvement. Malox used to help epigastric pain. Productive cough is green, she is not sure if there is blood in it. Denies difficulty breathing but notes sometimes she feels like she can't breath, though this has been ongoing for many years. She denies chest pain, headache, rashes, urinary/bowel changes, black/bloody stool, leg swelling, calf pain nor other symptoms. ROS: See above HPI for pertinent positives & negatives. A total of 10 systems reviewed and were otherwise negative. Past Medical History:See Below Past Surgical History:See Below Family History:See Below Social History:See Below Home Medications:See Below Allergies:See Below Vitals:Blood Pressure: 189/90, Pulse 90, RR 18, T 36.9C, O2 95% on RA Physical Exam: GENERAL: Patient is severely anxious appearing and in moderate distress. EYES: No scleral icterus, unremarkable pupils. ENT: Mucous membranes moist, no nasal congestion. NECK: No masses appreciated, nomeningismus, trachea is midline. RESPIRATORY: No dyspnea. Clear to auscultation and equal bilaterally. No wheeze, no rhonchi. CARDIOVASCULAR: Regular rate and rhythm.No murmurs, rubs, gallops appreciated. GASTROINTESTINAL: Periodic dry heaving. Abdomen soft, non-tender, no peritonitis.Bowel sounds positive.No masses appreciated. BACK: No midline tenderness, no CVA tenderness EXTREMITIES: Normal motion all extremities, no cyanosis, no edema. NEUROLOGIC: Alert and oriented, no acute motor or sensory deficits, no focal weakness, cranial nerves grossly intact. SKIN: No rash, no jaundice, no diaphoresis. PSYCH: Severe anxiety GCS: 15 ED Course: Times/Reassessments: gradually improving. She was given ativan primarily for nausea treatment given reported allergies and infective zofran Ron Frazier MD Past Med/Surg History Medical History (Updated 03/01/21 @ 06:54 by Ron Frazier MD) COPD (chronic obstructive pulmonary disease) Cystic mass of pancreas DVT (deep venous thrombosis) H/O drug abuse High blood pressure Hypertension Hypertensive urgency Posttraumatic stress disorder (01/14/13) Schizoaffective disorder (01/22/12) Tobacco abuse Surgical History History of cystoscopy History of inferior vena caval filter placement Family History Father Myocardial infarction, Onset Age: 66 Diabetes Mother Stroke Colorectal cancer Other Family history non-contributory Social History Smoking Status: Current every day smoker Tobacco Type: Cigarettes Cigarettes Per Day: 1.5 PPD; Second Hand Exposure: No; Do You Dip or Chew Tobacco: No; Hx Alcohol Use: No Hx Substance Use: No Preferred Language: [place] Communication Ability: Effective Visual Impairment: No Limitations Hearing Ability: Normal Deal Architect Required: No Beliefs That Will Affect Care: None marital status: Single Current Living Situation: Alone Current Living Situation Comment: Living in apartment in [place] Other Information That Helps Us Care for You: No Feels Safe at Home: Yes Safety Concerns: Feels Safe At This Time Assistive Devices: None Allergies Allergies Allergy/AdvReac Type Severity Reaction Status Date / Time atropine Allergy Severe castillo, hard Verified 03/01/21 00:14 time breathing clonidine Allergy Severe RAISES Unverified 03/01/21 00:14 B.P., ANXIOUSNESS diphenhydramine Allergy Severe "I ALMOST Verified 03/01/21 00:14 ." hyoscyamine Allergy Severe castillo, hard Verified 03/01/21 00:14 time breathing labetalol Allergy Severe selling,loss Verified 03/01/21 00:14 of taste,itch, rash phenobarbital Allergy Severe castillo, hard Verified 03/01/21 00:14 time breathing prednisone Allergy Severe Edema Verified 03/01/21 00:14 face,lips and tongue. scopolamine Allergy Severe castillo, hard Verified 03/01/21 00:14 time breathing enoxaparin Allergy Intermediate RASH Verified 03/01/21 00:14 levofloxacin Allergy Intermediate ARM TURNED Verified 03/01/21 00:14 "FIREY RED" WHEN INFUSED, CLEARED IN A FEW HOURS tramadol Allergy Intermediate blisters Verified 03/01/21 00:14 all over warfarin Allergy Intermediate rash Verified 03/01/21 00:14 chlorpromazine Allergy Mild TOLERATING Verified 03/01/21 00:14 PROLIXIN AT HOME 01/15/08 Penicillins Allergy Mild Unknown Verified 03/01/21 00:14 coumarin Allergy Unknown UNKNOWN Verified 03/01/21 00:14 naproxen Allergy Unknown Unknown Verified 03/01/21 00:14 morphine AdvReac Severe SHOCK;TOLERATES Verified 03/01/21 00:14 DEMEROL aspirin AdvReac Intermediate BLEEDING Verified 03/01/21 00:14 codeine AdvReac Intermediate BP DROPS Verified 03/01/21 00:14 AND PASSES OUT dicyclomine AdvReac Intermediate GI SYMPTOMS Verified 03/01/21 00:14 hydralazine AdvReac Intermediate palpitations Verified 03/01/21 00:14 as per px ibuprofen AdvReac Intermediate BLEEDING Verified 03/01/21 00:14 amitriptyline AdvReac Mild Nausea/vomi Verified 03/01/21 00:14 timg lisinopril AdvReac Mild COUGH Verified 03/01/21 00:14 nitrofurantoin AdvReac Unknown hallucinati Verified 03/01/21 00:14 ng Home Meds Home Medications Medication Instructions Recorded Confirmed aspirin 81 mg chewable tablet 81 mg PO DAILY 06/30/19 03/01/21 (Aspirin Childrens) metoprolol tartrate 50 mg tablet 50 mg PO BID 10/05/19 03/01/21 Results & Data (ED) Vital Signs Vital Signs - 24 hr 02/28/21 22:54 02/28/21 23:30 03/01/21 01:02 Temperature 36.9 C Temperature Source Oral Pulse Rate 78 Pulse Rate [Apical] 90 68 Pulse Rhythm Regular Pulse Rhythm [Apical] Pulse Strength Normal Respiratory Rate 20 18 18 Respiratory Effort / Characteristics Non-Labored Spontaneous Respiratory Depth Normal Respiratory Pattern Regular Blood Pressure 195/101 H Blood Pressure [Left Arm] 189/90 H 142/82 H Blood Pressure Mean 132 Blood Pressure Mean [Left Arm] 123 102 Blood Pressure Position Sitting Blood Pressure Position [Left Arm] Pulse Oximetry 98 95 95 Oxygen Delivery Method Room Air Room Air Room Air Sepsis Recent Fever Within 48 Hours No Sepsis New/Unexplained Change in Mental Status N/A Sepsis Action Taken by Nursing No Action Required 03/01/21 01:30 03/01/21 03:06 03/01/21 04:17 Temperature Temperature Source Pulse Rate Pulse Rate [Apical] 76 69 61 Pulse Rhythm Pulse Rhythm [Apical] Regular Pulse Strength Respiratory Rate 18 18 18 Respiratory Effort / Characteristics Non-Labored Spontaneous Respiratory Depth Normal Respiratory Pattern Regular Blood Pressure Blood Pressure [Left Arm] 131/58 L 133/73 104/62 Blood Pressure Mean Blood Pressure Mean [Left Arm] 82 93 76 Blood Pressure Position Blood Pressure Position [Left Arm] Lying Pulse Oximetry 97 98 98 Oxygen Delivery Method Room Air Room Air Sepsis Recent Fever Within 48 Hours Sepsis New/Unexplained Change in Mental Status Sepsis Action Taken by Nursing Laboratory Data Result diagrams: 03/01/21 18:35 03/01/21 00:30 Lab Results 03/01/21 03/01/21 03/01/21 Range/Units 00:30 00:30 04:40 WBC 10.34 (4.8-10.8) K/uL RBC 4.66 (4.2-5.4) M/uL Hgb 15.2 (12.0-16.0) g/dL Hct 43.1 (37-47) % MCV 92.5 (80-100) fL MCH 32.6 (25-34) pg MCHC 35.3 (32-36) g/dL RDW Std Deviation 43.9 (36.4-46.3) fL RDW Coeff of Blas 12.9 (11.5-14.5) % Plt Count 463 H (130-400) K/uL MPV 9.2 (7.4-10.4) fL Immature Gran % (Auto) 0.2 % Neut % (Auto) 65.7 % Lymph % (Auto) 27.9 % [place] % (Auto) 5.9 % Eos % (Auto) 0.0 % Baso % (Auto) 0.3 % Neut # (Auto) 6.80 H (1.4-6.5) K/uL Lymph # (Auto) 2.88 (1.2-3.4) K/uL [place] # (Auto) 0.61 H (0.11-0.59) K/uL Eos # (Auto) 0.00 (0-0.5) K/uL Baso # (Auto) 0.03 (0-0.2) K/uL Immature Gran # (Auto) 0.02 (0.00-0.02) K/uL Sodium 137 (136-145) mmol/L Potassium 3.9 (3.5-5.1) mmol/L Chloride 107 (98-107) mmol/L Carbon Dioxide 22 (21-32) mmol/L Anion Gap 8.0 (3-11) BUN 6 L (7-18) mg/dl Creatinine 0.77 (0.6-1.2) mg/dl Est Cr Clr Drug Dosing 55.3 ml/min Est GFR ( Amer) 92.0 ml/min Est GFR (Non-Af Amer) 79.3 ml/min BUN/Creatinine Ratio 8.0 L (10-20) Glucose 102 H (70-99) mg/dl Calcium 9.7 (8.5-10.1) mg/dl Magnesium 2.1 (1.8-2.4) mg/dl Total Bilirubin 0.4 (0.2-1) mg/dl Direct Bilirubin < 0.1 (0-0.2) mg/dl AST 14 L (15-37) U/L ALT 26 (12-78) U/L Alkaline Phosphatase 84 (45-117) U/L Troponin I < 0.015 (0-0.045) ng/ml Total Protein 8.1 (6.4-8.2) gm/dl Albumin 4.3 (3.4-5.0) gm/dl Lipase 401 H (73-393) U/L COVID-19 Eval Order Covid19 at [facility] SARS-CoV-2 (PCR) (Negative) 03/01/21 Range/Units 04:40 WBC (4.8-10.8) K/uL RBC (4.2-5.4) M/uL Hgb (12.0-16.0) g/dL Hct (37-47) % MCV (80-100) fL MCH (25-34) pg MCHC (32-36) g/dL RDW Std Deviation (36.4-46.3) fL RDW Coeff of Blas (11.5-14.5) % Plt Count (130-400) K/uL MPV (7.4-10.4) fL Immature Gran % (Auto) % Neut % (Auto) % Lymph % (Auto) % [place] % (Auto) % Eos % (Auto) % Baso % (Auto) % Neut # (Auto) (1.4-6.5) K/uL Lymph # (Auto) (1.2-3.4) K/uL [place] # (Auto) (0.11-0.59) K/uL Eos # (Auto) (0-0.5) K/uL Baso # (Auto) (0-0.2) K/uL Immature Gran # (Auto) (0.00-0.02) K/uL Sodium (136-145) mmol/L Potassium (3.5-5.1) mmol/L Chloride (98-107) mmol/L Carbon Dioxide (21-32) mmol/L Anion Gap (3-11) BUN (7-18) mg/dl Creatinine (0.6-1.2) mg/dl Est Cr Clr Drug Dosing ml/min Est GFR ( Amer) ml/min Est GFR (Non-Af Amer) ml/min BUN/Creatinine Ratio (10-20) Glucose (70-99) mg/dl Calcium (8.5-10.1) mg/dl Magnesium (1.8-2.4) mg/dl Total Bilirubin (0.2-1) mg/dl Direct Bilirubin (0-0.2) mg/dl AST (15-37) U/L ALT (12-78) U/L Alkaline Phosphatase (45-117) U/L Troponin I (0-0.045) ng/ml Total Protein (6.4-8.2) gm/dl Albumin (3.4-5.0) gm/dl Lipase (73-393) U/L COVID-19 Eval Order SARS-CoV-2 (PCR) NEGATIVE (Negative) Administered Medications Pantoprazole Sodium 40 mg/ (Dextrose) 100 mls @ 20 mls/hr IV Q5H [facility]ARO Stop: 03/31/21 12:07 Last Admin: 03/01/21 18:29 Dose: 8 mg/hr, 20 mls/hr Documented by: [id number] Infusion: 03/01/21 18:29 Dose: 0 mg/hr, 0 mls/hr Documented by: [id number] Infusion: 03/01/21 18:29 Dose: 0 mg/hr, 0 mls/hr Documented by: [id number] Admin: 03/01/21 17:07 Dose: Not Given Documented by: [id number] Admin: 03/01/21 14:30 Dose: 8 mg/hr, 20 mls/hr Documented by: [id number] Dextrose/Sodium Chloride (D5w And Nss) 1,000 mls @ 100 mls/hr IV .Q10H GENARO Stop: 03/31/21 12:07 Last Admin: 03/01/21 14:26 Dose: 100 mls/hr Documented by: [id number] Ceftriaxone Sodium 1,000 mg/ (Dextrose) 50 mls @ 100 mls/hr IV Q24H [facility]; Protocol Stop: 03/08/21 12:29 Last Infusion: 03/01/21 14:39 Dose: 0 mls/hr Documented by: [id number] Admin: 03/01/21 13:16 Dose: 100 mls/hr Documented by: [id number] Metoprolol Tartrate (Metoprolol Tartrate 50 Mg Tab) 50 mg PO BID GENARO Stop: 03/31/21 12:07 Last Admin: 03/01/21 20:57 Dose: 50 mg Documented by: [id number] Admin: 03/01/21 13:17 Dose: Not Given Documented by: [id number] Discontinued Medications Fentanyl Citrate (Fentanyl Citrate 100 Mcg/2 Ml Vial) 50 mcg IV NOW STA Stop: 02/28/21 23:54 Last Admin: 03/01/21 00:14 Dose: 50 mcg Documented by: [id number] Fentanyl Citrate (Fentanyl Citrate 100 Mcg/2 Ml Vial) 50 mcg IV NOW STA Stop: 03/01/21 04:07 Last Admin: 03/01/21 04:34 Dose: 50 mcg Documented by: [id number] Sodium Chloride (Nss 1000ml) 1,000 mls @ 999 mls/hr IV .Q1H1M ONE Stop: 03/01/21 00:53 Last Infusion: 03/01/21 01:27 Dose: 0 mls/hr Documented by: [id number] Admin: 03/01/21 00:13 Dose: 999 mls/hr Documented by: [id number] Lorazepam (Ativan) 1 mg in 2 mls @ 2 mls/min IV NOW STA Stop: 03/01/21 00:29 Last Admin: 03/01/21 00:39 Dose: 2 mls/min Documented by: [id number] Pantoprazole Sodium 80 mg/ (Dextrose) 100 mls @ 400 mls/hr IV ONE STA Stop: 03/01/21 04:20 Last Infusion: 03/01/21 05:03 Dose: 0 mls/hr Documented by: [id number] Admin: 03/01/21 04:48 Dose: 400 mls/hr Documented by: [id number] Lorazepam (Ativan) 1 mg in 2 mls @ 2 mls/min IV NOW STA Stop: 03/01/21 04:07 Last Admin: 03/01/21 04:34 Dose: 2 mls/min Documented by: [id number] Ioversol (Optiray 320 100ml) 100 ml IV ONCE ONE Stop: 03/01/21 02:03 Last Admin: 03/01/21 02:03 Dose: 93 ml Documented by: [id number] Ondansetron HCl (Ondansetron Inj 2 Mg/Ml 2 Ml Vial) 4 mg IV NOW STA Stop: 02/28/21 23:59 Last Admin: 03/01/21 00:14 Dose: Not Given Documented by: [id number] Imaging Data Radiologist's Impression: Abdomen/Pelvis CT 02/28/21 23:53 CT OF THE ABDOMEN AND PELVIS WITH CONTRAST CLINICAL HISTORY: epigastric pain, persistent emesis COMPARISON STUDY: CT of the abdomen and pelvis October 05, 2019. TECHNIQUE: Following IV administration of 93 mL of Optiray, axial images of the abdomen and pelvis were obtained from the lung bases to the proximal femurs. Images were reviewed in the axial, sagittal, and coronal planes. IV contrast was administered without complication. Automated exposure control was utilized for the study. A dose lowering technique was utilized adhering to the principles of ALARA. FINDINGS: Please note that the chest CT will be provided separately. No pneumatosis, free air or portal venous gas is present. IVC filters in place. An additional IVC filter which is not within the IVC is unchanged. The liver, spleen, adrenal glands, kidneys and pancreas are unremarkable with the exception of a 1.2 m cystic lesion within the uncinate process of the pancreas which favors a side branch IPMN. This is unchanged since prior CT. There is no biliary or pancreatic ductal dilatation. There is no peripancreatic or pericholecystic infiltration. Exam is mildly compromised by motion artifact. There is no evidence for acute appendicitis. The appendix is visualized. There is evidence of material within the appendix without periappendiceal infiltration. There is no evidence for a bowel obstruction. There is no lymphadenopathy. No acute fracture or suspicious lesion is identified within visualized skeletal structures. There is mild distention of the bladder. IMPRESSION: 1. No acute process within the abdomen or pelvis. No significant change since prior exam. 2. No bowel obstruction. No bowel wall thickening. No evidence for acute appendi citis. ACT 112: Negative or not required by law. Electronically signed by: Papa Nur M.D. 03/01/2021 6:[address] 02/28/21 23:53 CT OF THE CHEST WITH IV CONTRAST CLINICAL HISTORY: persistent productive cough COMPARISON STUDY: Chest CT December 17, 2012. Chest radiograph February 20, 2021 TECHNIQUE: Following IV administration of 93 mL of Optiray, helical axial images of the chest were obtained. Sagittal and coronal reconstructions were viewed as well as maximal intensity projections on an independent 3-D workstation. Automated exposure control was utilized for the study. A dose lowering technique was utilized adhering to the principles of ALARA. CT DOSE: 501.38 mGy.cm FINDINGS: Mild upper lobe predominant emphysema is present. Central airways are patent. Mild groundglass opacities reflect atelectasis. There is no consolidation to suggest pneumonia. There are no suspicious pulmonary nodules. There is no pneumothorax or pleural effusion. Abdomen and pelvis will be reported separately. No enlarged axillary, mediastinal or hilar lymph nodes are present. Slight loss of the superior endplates of T8 and T12 is chronic. There is a small hiatal hernia. IMPRESSION: 1. No acute process within the chest. 2. Mild upper lobe predominant emphysema. 3. No thoracic lymphadenopathy. ACT 112: Negative or not required by law. Electronically signed by: Papa Nur M.D. 03/01/2021 7:15 AM Discharge Plan Visit Data Chief Complaint: Abdominal Pain Stated Complaint: ABDOMINAL PAIN/COUGH ED Provider: Ron Frazier Discharge Problem: Epigastric abdominal pain, Hematemesis, Intractable vomiting Patient Disposition: Admitted As Inpatient Discharge Instructions Interventions: ED Discharge Assessment Last Done: 03/01/21 11:32 Discharge Problem: Hematemesis Qualifiers: Nausea presence: with nausea Qualified Code(s): K92.0 - Hematemesis Intractable vomiting Qualifiers: Vomiting type: unspecified Nausea presence: with nausea Qualified Code(s): R11.2 - Nausea with vomiting, unspecified
[2021-03-01] MEDS ORDERED: LORazepam 1 MG/2 ML VIAL IV STA ×2 (00:28→04:06)
[2021-03-01 00:50] LABS: Basophils # (auto) 0.03 K/uL (0-0.2); Basophils % (auto) 0.3 %; Hematocrit (blood only) 43.1 % (37-47); Hemoglobin 15.2 g/dL (12.0-16.0); Immature Granulocytes # (auto) 0.02 K/uL (0.00-0.02); Immature Granulocytes % (auto) 0.2 %; Lymphocytes # (auto) 2.88 K/uL (1.2-3.4); Lymphocytes % (auto) 27.9 %; Mean Corpuscular Hemoglobin 32.6 pg (25-34); Mean Corpuscular Hgb Conc 35.3 g/dL (32-36); Mean Corpuscular Volume 92.5 fL (80-100); Mean Platelet Volume 9.2 fL (7.4-10.4); Monocytes # (auto) 0.61 K/uL (0.11-0.59); Monocytes % (auto) 5.9 %; Neutrophils % (auto) 65.7 %; Platelet Count 463 K/uL (130-400); RDW Coefficient of Variation 12.9 % (11.5-14.5); RDW Standard Deviation 43.9 fL (36.4-46.3); Red Blood Count 4.66 M/uL (4.2-5.4); White Blood Count 10.34 K/uL (4.8-10.8)
[2021-03-01 01:07] LABS: Alanine Aminotransferase 26 U/L (12-78); Albumin Level 4.3 gm/dl (3.4-5.0); Aspartate Aminotransferase 14 U/L (15-37); Bilirubin Direct < 0.1 mg/dl (0-0.2); Blood Urea Nitrogen 6 mg/dl (7-18); Calcium 9.7 mg/dl (8.5-10.1); Carbon Dioxide 22 mmol/L (21-32); Chloride 107 mmol/L (98-107); Creatinine Clr Calc Pharmacy 55.3 ml/min; Est GFR (Non-African American) 79.3 ml/min; Glucose 102 mg/dl (70-99); Lipase 401 U/L (73-393); Magnesium 2.1 mg/dl (1.8-2.4); Potassium 3.9 mmol/L (3.5-5.1); Sodium 137 mmol/L (136-145)
[2021-03-01 01:12] LABS: Alkaline Phosphatase 84 U/L (45-117); Bilirubin,Total 0.4 mg/dl (0.2-1); Total Protein 8.1 gm/dl (6.4-8.2); Troponin I < 0.015 ng/ml (0-0.045)
[2021-03-01] MEDS ORDERED: OPTIRAY 320 100ml IV ONE (02:02)
[2021-03-01] MEDS ORDERED: fentaNYL citrate 100 MCG/2 ML VIAL IV STA (04:06)
[2021-03-01] MEDS ORDERED: PANTOprazole 80 MG in DEXTROSE 5% 100 ML IV STA (04:06)
--- NOTE | 2021-03-01 06:47 | CT Scan Report ---
CT OF THE ABDOMEN AND PELVIS WITH CONTRAST CLINICAL HISTORY: epigastric pain, persistent emesis COMPARISON STUDY: CT of the abdomen and pelvis October 05, 2019. TECHNIQUE: Following IV administration of 93 mL of Optiray, axial images of the abdomen and pelvis we re obtained from the lung bases to the proximal femurs. Images were reviewed in the axial, sagittal, and coronal planes. IV contrast was administered without complication. Automated exposure control wa s utilized for the study. A dose lowering technique was utilized adhering to the principles of ALARA . FINDINGS: Please note that the chest CT will be provided separately. No pneumatosis, free air or port al venous gas is present. IVC filters in place. An additional IVC filter which is not within the IVC is unchanged. The liver, spleen, adrenal glands, kidneys and pancreas are unremarkable with the excep tion of a 1.2 m cystic lesion within the uncinate process of the pancreas which favors a side branch IPMN. This is unchanged since prior CT. There is no biliary or pancreatic ductal dilatation. There is no peripancreatic or pericholecystic infiltration. Exam is mildly compromised by motion artifact. Th ere is no evidence for acute appendicitis. The appendix is visualized. There is evidence of material within the appendix without periappendiceal infiltration. There is no evidence for a bowel obstructio n. There is no lymphadenopathy. No acute fracture or suspicious lesion is identified within visualize d skeletal structures. There is mild distention of the bladder. IMPRESSION: 1. No acute process within the abdomen or pelvis. No significant change since prior exam. 2. No bowel obstruction. No bowel wall thickening. No evidence for acute appendicitis. ACT 112: Negative or not required by law. Electronically signed by: Papa Nur M.D. 03/01/2021 6:46 AM
--- NOTE | 2021-03-01 07:16 | CT Scan Report ---
CT OF THE CHEST WITH IV CONTRAST CLINICAL HISTORY: persistent productive cough COMPARISON STUDY: Chest CT December 17, 2012. Chest radiograph February 20, 2021 TECHNIQUE: Following IV administration of 93 mL of Optiray, helical axial images of the chest were o btained. Sagittal and coronal reconstructions were viewed as well as maximal intensity projections o n an independent 3-D workstation. Automated exposure control was utilized for the study. A dose low ering technique was utilized adhering to the principles of ALARA. CT DOSE: 501.38 mGy.cm FINDINGS: Mild upper lobe predominant emphysema is present. Central airways are patent. Mild groundg lass opacities reflect atelectasis. There is no consolidation to suggest pneumonia. There are no susp icious pulmonary nodules. There is no pneumothorax or pleural effusion. Abdomen and pelvis will be re ported separately. No enlarged axillary, mediastinal or hilar lymph nodes are present. Slight loss of the superior endplates of T8 and T12 is chronic. There is a small hiatal hernia. IMPRESSION: 1. No acute process within the chest. 2. Mild upper lobe predominant emphysema. 3. No thoracic lymphadenopathy. ACT 112: Negative or not required by law. Electronically signed by: Papa Nur M.D. 03/01/2021 7:15 AM
--- NOTE | 2021-03-01 07:39 | History and Physical Report ---
DATE OF ADMISSION: 03/01/2021. CHIEF COMPLAINT: Abdominal pain and cough. HISTORY OF PRESENT ILLNESS: This is a 70-year-old female with past medical history significant for hypertension, irritable bowel syndrome, history of DVT and PE, status post IVC filter, history of schizoaffective disorder, chronic pain, tobacco abuse, posttraumatic stress disorder, history of suicidal attempt by acetaminophen overdose, bipolar disorder, who presents because of abdominal pain and cough. The patient was in the ER on 02/19/2021 complaining of multiple problems and also cough and workup was okay and she was sent home on Z-NICK. The patient stated she took the medication for 4 days, and it seemed to help, but then again is having lot of cough and lot of phlegm and she is also having nausea and she has dry heaves and sometimes vomits. When she vomits, she has lot of phlegm in it and also some streaks of blood. She thinks it is coming from the stomach. She has a lot of abdominal pain, severe pain radiating to the back. Not able to eat much. Denies any diarrhea or constipation. Denies any blood in stools. Once in the while, stools are black. Denies any hematuria. She has some swelling in the left lower extremity, the leg swells on and off. She says she has chest pain from coughing. Has some headache. Sometimes she could feel blurred vision, sometimes feels her hearing is reduced on and off. Has sore throat, has some runny nose. Ambulates okay. Lives alone. Neighbors and daughter check on her. Currently, resting comfortably and hemodynamically stable. ALLERGIES: ATROPINE, CLONIDINE, DIPHENHYDRAMINE, HYOSCYAMINE, LABETALOL, PHENOBARBITAL, PREDNISONE, SCOPOLAMINE, ENOXAPARIN, LEVAQUIN, TRAMADOL, WARFARIN, CHLORPROMAZINE, PENICILLINS, COUMADIN, NAPROXEN, MORPHINE, ASPIRIN, CODEINE, DICYCLOMINE, HYDRALAZINE, IBUPROFEN, AMITRIPTYLINE, LISINOPRIL, NITROFURANTOIN. PAST MEDICAL HISTORY: As mentioned above. PAST SURGICAL HISTORY: Cystoscopy, EGD with biopsy, IVC filter, throat surgery for tonsils. MEDICATIONS: The patient is currently only taking aspirin 81 mg p.o. daily and metoprolol 50 mg p.o. b.i.d. FAMILY HISTORY: Significant for mother had colon cancer, heart disorder, cholesterol; father has diabetes, heart disorder. SOCIAL HISTORY: Lives alone, smokes 1.5 packs a day for 37 years. Currently, no alcohol use. Reports no drug use. REVIEW OF SYSTEMS: As per HPI. Rest of the review of systems is negative. PHYSICAL EXAMINATION: GENERAL: The patient is of moderate build, not in acute distress. VITAL SIGNS: Temperature 36.9, pulse 61, respiratory rate 18, blood pressure 104/62, oxygen 98% on room air. HEENT: Pupils equal, round and reactive to light. Oral mucosa dry. NECK: No JVD, no neck masses. CARDIOVASCULAR: S1 and S2 heard. Regular rate and rhythm. No murmur, no gallop. RESPIRATORY SYSTEM: Normal AP diameter. No accessory muscle use. No wheezing, no crackles. ABDOMEN: Soft, bowel sounds present. Diffuse mild tenderness. Mild guarding. No rigidity, no distention. CENTRAL NERVOUS SYSTEM: Cranial nerves II-XII grossly intact, nonfocal. EXTREMITIES: Left lower extremity is slightly erythematous. No erythema seen. LABORATORY DATA: WBC 10, hemoglobin 15.2, hematocrit 43.1, platelets 463. Sodium 137, potassium 3.9, chloride 107, bicarbonate 22, BUN 6, creatinine 0.7, serum glucose 102, calcium 9.7, magnesium 2.1, total bilirubin 0.4, direct bilirubin less than 0.1, AST 14, ALT 22, alkaline phosphatase 84. Troponin I less than 0.015. IMAGING DATA: Chest CT and abdomen and pelvis CT, preliminary report unremarkable. ASSESSMENT AND PLAN: This is a 70-year-old female who presents with abdominal pain, nausea, vomiting and cough with phlegm in the vomitus sometimes with a blood streak in it. 1. Nausea, vomiting, abdominal pain, questionable hematemesis: Started on IV Protonix drip, n.p.o., IV fluids. Consult GI in the a.m. for further recommendation. Monitor in the med rec. Follow H and H. Currently, hemoglobin is stable at 15.2. 2. Ongoing cough with phlegm: We will get sputum cultures. The patient is smoking. The patient recently had Z-NICK. We will empirically start on Rocephin. 3. Hypertension: Continue metoprolol. Monitor the blood pressure. 4. History of irritable bowel syndrome. 5. History of deep venous thrombosis and pulmonary embolism: Status post IVC filter. 6. History of schizoaffective disorder and anxiety state, bipolar: Currently seems to be not on any medications. The patient was seen by psychiatry here in the hospital in 2019. At that time, she was placed on Remeron. If needed, we will consult the psychiatry again. 7. Deep venous thrombosis prophylaxis: Sequential compression devices for now . DISPOSITION: Closely monitor in the med tele. PT/OT prior to discharge. Social service to help with discharge planning. Job ID: [id number] [facility]
[2021-03-01] MEDS ORDERED: ACETAMINOPHEN 325 MG TAB PO PRN (12:08)
[2021-03-01] MEDS ORDERED: NITROGLYCERIN SL 0.4 MG/TAB TAB SL PRN (12:08)
[2021-03-01] MEDS ORDERED: ONDANSETRON INJ 2 MG/ML 2 ML VIAL IV PRN (12:08)
--- NOTE | 2021-03-01 12:30 | Gastrointestinal Consultation ---
Date of Consultation March 01, 2021 Assessment & Plan (1) Epigastric abdominal pain: 70 y/o female with h/o chronic intermittent abd pain, h/o nondysplastic Branch's, duodenal aphthae in 2012 and others, admitted yesterday with multiple complaints including epigastric abd pain and reported hematemesis. Work-up so far including labs, imaging unremarkable for acute findings. Pt has not had hematemesis or other overt GIB since admission. On exam, abd soft. - Daily PPI would be reasonable given her history on prior EGD and I recommended this to her; though she is not terribly interested in starting - Given ongoing symptoms and h/o Branch's, duodenal ulcer, would recommend repeat EGD - this can be done on at outpt basis. She is not sure if she can do this. - Should have pancreatic protocol MRI for surveillance of panc cyst - this can also be done on an outpt basis - imaging could be ordered by PCP and refer to GI if enlarging. - Could also have screening colonoscopy as her last one was 2010 - I discussed this with pt however she doesn't believe she would like to have another one as she doesnt think she can tolerate the prep. - Recommending avoiding GI irritants including tobacco, ETOH, NSAIDs; follow anti-reflux regimen - GI will sign off, please call with questions Thank you for allowing us to participate in the care of this patient. Please call with any acute changes, questions or concerns. Please see addendum below with additional recommendation from my supervising physician. Supervising Physician Co-Signing Physician Notes I have personally seen and examined the patient with Marietta Olivas PA-C. Her note reflects my exam and findings. I agree with her impression and plan. Daily PPI. Significant functional component to symptoms. Follow up with PCP. Dariel Lowery M.D. History of Present Illness Reason for Consultation: abdominal pain, nausea. hematemesis? Requesting Physician: Dr. Miranda Attending Physician: Jayme Miranda MD History of Present Illness Pt is a 70 yr old female with a hx of bipolar, schizoaffective disorder, Branch's, duodenal apthae, HTN, CAD prior IA, COPD, DVT with IVF filter who presented to the ER yesterday for acute on chronic epigastric pain along with productive cough, runny nose, body aches, fever. Pt noted she believes she saw emesis in her blood yesterday (streaks of blood in vomited phlegm). On arrival, labs were unremarkable; CTAP with no acute changes, CT chest with mild emphysema. She has a known pancreatic cyst. Gi asked to evaluate for abd membreno, ? hematemesis. Overnight has had no GI output. No melena, hematochezia, hematemesis. Labs stable. Pt notes she has had chronic epigastric pain, described as a "burning" - can be made worse after eating, particularly in the RUQ. She follows a bland diet; states her appetite is good. At times pain can radiate to the back. Has frequent nasal drainage/coughing of phlegm with gagging/vomiting. Bowels move daily, she drinks [place] oil or mineral oil and a tap water enema to have a BM - formed and brown (she states she tried other therapies such as Miralax and fiber which were not helpful). Denies coffee ground emesis, chest pain, fever, chills, heartburn, regurgitation, dysphagia, odynophagia. Former tobacco use; no NSAID or ETOH use. States she gets SOB with exertion and with talking; c/o SOB while I was talking to her. Our service saw this pt on an inpt basis for similar complaints in 2019- recommended outpt EGD and repeat MRI in 1 year for pancreatic cyst; appears neither of these was done. Regarding prior endoscopy, EGD in [address] Lopez for chest pain with findings of LA Grade C reflux esophagitis, hiatal hernia, duodenal aphthous ulcers. Path: Branch's without dysplasia, chronic active esophagitis and duodenitis. Colonoscopy [place] [address] Guerrier for diarrhea was normal. Allergies Allergy/AdvReac Type Severity Reaction Status Date / Time atropine Allergy Severe castillo, hard Verified 03/01/21 00:14 time breathing clonidine Allergy Severe RAISES Unverified 03/01/21 00:14 B.P., ANXIOUSNESS diphenhydramine Allergy Severe "I ALMOST Verified 03/01/21 00:14 ." hyoscyamine Allergy Severe castillo, hard Verified 03/01/21 00:14 time breathing labetalol Allergy Severe selling,loss Verified 03/01/21 00:14 of taste,itch, rash phenobarbital Allergy Severe castillo, hard Verified 03/01/21 00:14 time breathing prednisone Allergy Severe Edema Verified 03/01/21 00:14 face,lips and tongue. scopolamine Allergy Severe castillo, hard Verified 03/01/21 00:14 time breathing enoxaparin Allergy Intermediate RASH Verified 03/01/21 00:14 levofloxacin Allergy Intermediate ARM TURNED Verified 03/01/21 00:14 "FIREY RED" WHEN INFUSED, CLEARED IN A FEW HOURS tramadol Allergy Intermediate blisters Verified 03/01/21 00:14 all over warfarin Allergy Intermediate rash Verified 03/01/21 00:14 chlorpromazine Allergy Mild TOLERATING Verified 03/01/21 00:14 PROLIXIN AT HOME 01/15/08 Penicillins Allergy Mild Unknown Verified 03/01/21 00:14 coumarin Allergy Unknown UNKNOWN Verified 03/01/21 00:14 naproxen Allergy Unknown Unknown Verified 03/01/21 00:14 morphine AdvReac Severe SHOCK;TOLERATES Verified 03/01/21 00:14 DEMEROL aspirin AdvReac Intermediate BLEEDING Verified 03/01/21 00:14 codeine AdvReac Intermediate BP DROPS Verified 03/01/21 00:14 AND PASSES OUT dicyclomine AdvReac Intermediate GI SYMPTOMS Verified 03/01/21 00:14 hydralazine AdvReac Intermediate palpitations Verified 03/01/21 00:14 as per px ibuprofen AdvReac Intermediate BLEEDING Verified 03/01/21 00:14 amitriptyline AdvReac Mild Nausea/vomi Verified 03/01/21 00:14 timg lisinopril AdvReac Mild COUGH Verified 03/01/21 00:14 nitrofurantoin AdvReac Unknown hallucinati Verified 03/01/21 00:14 ng Home Medications Medication Instructions Recorded Confirmed Type aspirin 81 mg chewable tablet 81 mg PO DAILY 06/30/19 03/01/21 History (Aspirin Childrens) metoprolol tartrate 50 mg tablet 50 mg PO BID 10/05/19 03/01/21 History Patient History Medical History (Updated 03/01/21 @ 06:54 by Ron Frazier MD) COPD (chronic obstructive pulmonary disease) Cystic mass of pancreas DVT (deep venous thrombosis) H/O drug abuse High blood pressure Hypertension Hypertensive urgency Posttraumatic stress disorder (01/14/13) Schizoaffective disorder (01/22/12) Tobacco abuse Surgical History History of cystoscopy History of inferior vena caval filter placement Family History Father Myocardial infarction, Onset Age: 66 Diabetes Mother Stroke Colorectal cancer Other Family history non-contributory Social History Smoking Status: Current every day smoker Tobacco Type: Cigarettes Cigarettes Per Day: 1.5 PPD; Second Hand Exposure: No; Do You Dip or Chew Tobacco: No; Hx Alcohol Use: No Hx Substance Use: No Preferred Language: Indian Communication Ability: Effective Visual Impairment: No Limitations Hearing Ability: Normal Pasting Inspector Required: No Beliefs That Will Affect Care: None marital status: Single Current Living Situation: Alone Current Living Situation Comment: Living in apartment in [place] Other Information That Helps Us Care for You: No Feels Safe at Home: Yes Safety Concerns: Feels Safe At This Time Assistive Devices: None Review of Systems Review of Systems: All systems reviewed & are unremarkable except as noted in Subjective Physical Exam Constitutional: WD/WN, vitals as above Respiratory: normal respiratory effort, lungs clear to auscultation Cardiovascular: RRR, no murmur, no edema Gastrointestinal (Abdomen): Inspection/Auscultation: abdomen normal to inspection; abdomen not distended Percussion/Palpation: abdomen soft BS x 4 quadrants; mild epigastric tenderness, no rebound, guarding Skin: no rashes, warm and dry Psychiatric: Alert and oriented to place, year, time, though process is somewhat tangential Results & Data ([facility]) Vital Signs (Past 12 Hours) Vital Signs Pulse Pulse Resp BP BP Pulse Ox 03/01/21 11:32 72 16 132/82 97 03/01/21 10:30 79 20 150/68 H 98 03/01/21 09:30 74 95/47 L 95 03/01/21 08:30 65 14 127/57 L 98 03/01/21 07:30 71 14 102/68 96 03/01/21 06:31 70 122/60 98 03/01/21 06:00 80 20 122/60 98 03/01/21 04:17 61 18 104/62 98 03/01/21 03:06 69 18 133/73 98 03/01/21 01:30 76 18 131/58 L 97 03/01/21 01:02 68 18 142/82 H 95 Laboratory Results 03/01/21 03/01/21 03/01/21 Range/Units 04:40 04:40 00:30 WBC (4.8-10.8) K/uL RBC (4.2-5.4) M/uL Hgb (12.0-16.0) g/dL Hct (37-47) % MCV (80-100) fL MCH (25-34) pg MCHC (32-36) g/dL RDW Std Deviation (36.4-46.3) fL RDW Coeff of Blas (11.5-14.5) % Plt Count (130-400) K/uL MPV (7.4-10.4) fL Immature Gran % (Auto) % Neut % (Auto) % Lymph % (Auto) % [place] % (Auto) % Eos % (Auto) % Baso % (Auto) % Neut # (Auto) (1.4-6.5) K/uL Lymph # (Auto) (1.2-3.4) K/uL [place] # (Auto) (0.11-0.59) K/uL Eos # (Auto) (0-0.5) K/uL Baso # (Auto) (0-0.2) K/uL Immature Gran # (Auto) (0.00-0.02) K/uL Sodium 137 (136-145) mmol/L Potassium 3.9 (3.5-5.1) mmol/L Chloride 107 (98-107) mmol/L Carbon Dioxide 22 (21-32) mmol/L Anion Gap 8.0 (3-11) BUN 6 L (7-18) mg/dl Creatinine 0.77 (0.6-1.2) mg/dl Est Cr Clr Drug Dosing 55.3 ml/min Est GFR ( Amer) 92.0 ml/min Est GFR (Non-Af Amer) 79.3 ml/min BUN/Creatinine Ratio 8.0 L (10-20) Glucose 102 H (70-99) mg/dl Calcium 9.7 (8.5-10.1) mg/dl Magnesium 2.1 (1.8-2.4) mg/dl Total Bilirubin 0.4 (0.2-1) mg/dl Direct Bilirubin < 0.1 (0-0.2) mg/dl AST 14 L (15-37) U/L ALT 26 (12-78) U/L Alkaline Phosphatase 84 (45-117) U/L Troponin I < 0.015 (0-0.045) ng/ml Total Protein 8.1 (6.4-8.2) gm/dl Albumin 4.3 (3.4-5.0) gm/dl Lipase 401 H (73-393) U/L COVID-19 Eval Order Covid19 at [facility] SARS-CoV-2 (PCR) NEGATIVE (Negative) 03/01/21 Range/Units 00:30 WBC 10.34 (4.8-10.8) K/uL RBC 4.66 (4.2-5.4) M/uL Hgb 15.2 (12.0-16.0) g/dL Hct 43.1 (37-47) % MCV 92.5 (80-100) fL MCH 32.6 (25-34) pg MCHC 35.3 (32-36) g/dL RDW Std Deviation 43.9 (36.4-46.3) fL RDW Coeff of Blas 12.9 (11.5-14.5) % Plt Count 463 H (130-400) K/uL MPV 9.2 (7.4-10.4) fL Immature Gran % (Auto) 0.2 % Neut % (Auto) 65.7 % Lymph % (Auto) 27.9 % [place] % (Auto) 5.9 % Eos % (Auto) 0.0 % Baso % (Auto) 0.3 % Neut # (Auto) 6.80 H (1.4-6.5) K/uL Lymph # (Auto) 2.88 (1.2-3.4) K/uL [place] # (Auto) 0.61 H (0.11-0.59) K/uL Eos # (Auto) 0.00 (0-0.5) K/uL Baso # (Auto) 0.03 (0-0.2) K/uL Immature Gran # (Auto) 0.02 (0.00-0.02) K/uL Sodium (136-145) mmol/L Potassium (3.5-5.1) mmol/L Chloride (98-107) mmol/L Carbon Dioxide (21-32) mmol/L Anion Gap (3-11) BUN (7-18) mg/dl Creatinine (0.6-1.2) mg/dl Est Cr Clr Drug Dosing ml/min Est GFR ( Amer) ml/min Est GFR (Non-Af Amer) ml/min BUN/Creatinine Ratio (10-20) Glucose (70-99) mg/dl Calcium (8.5-10.1) mg/dl Magnesium (1.8-2.4) mg/dl Total Bilirubin (0.2-1) mg/dl Direct Bilirubin (0-0.2) mg/dl AST (15-37) U/L ALT (12-78) U/L Alkaline Phosphatase (45-117) U/L Troponin I (0-0.045) ng/ml Total Protein (6.4-8.2) gm/dl Albumin (3.4-5.0) gm/dl Lipase (73-393) U/L COVID-19 Eval Order SARS-CoV-2 (PCR) (Negative) Diagnostic Findings Imaging Data Radiologist's Impression: Abdomen/Pelvis CT 02/28/21 23:53 CT OF THE ABDOMEN AND PELVIS WITH CONTRAST CLINICAL HISTORY: epigastric pain, persistent emesis COMPARISON STUDY: CT of the abdomen and pelvis October 05, 2019. TECHNIQUE: Following IV administration of 93 mL of Optiray, axial images of the abdomen and pelvis were obtained from the lung bases to the proximal femurs. Images were reviewed in the axial, sagittal, and coronal planes. IV contrast was administered without complication. Automated exposure control was utilized for the study. A dose lowering technique was utilized adhering to the principles of ALARA. FINDINGS: Please note that the chest CT will be provided separately. No pneumatosis, free air or portal venous gas is present. IVC filters in place. An additional IVC filter which is not within the IVC is unchanged. The liver, spleen, adrenal glands, kidneys and pancreas are unremarkable with the exception of a 1.2 m cystic lesion within the uncinate process of the pancreas which favors a side branch IPMN. This is unchanged since prior CT. There is no biliary or pancreatic ductal dilatation. There is no peripancreatic or pericholecystic infiltration. Exam is mildly compromised by motion artifact. There is no evidence for acute appendicitis. The appendix is visualized. There is evidence of material within the appendix without periappendiceal infiltration. There is no evidence for a bowel obstruction. There is no lymphadenopathy. No acute fracture or suspicious lesion is identified within visualized skeletal structures. There is mild distention of the bladder. IMPRESSION: 1. No acute process within the abdomen or pelvis. No significant change since prior exam. 2. No bowel obstruction. No bowel wall thickening. No evidence for acute appendicitis. ACT 112: Negative or not required by law. Chest CT 02/28/21 23:53 CT OF THE CHEST WITH IV CONTRAST CLINICAL HISTORY: persistent productive cough COMPARISON STUDY: Chest CT December 17, 2012. Chest radiograph February 20, 2021 TECHNIQUE: Following IV administration of 93 mL of Optiray, helical axial images of the chest were obtained. Sagittal and coronal reconstructions were viewed as well as maximal intensity projections on an independent 3-D workstation. Automated exposure control was utilized for the study. A dose lowering technique was utilized adhering to the principles of ALARA. CT DOSE: 501.38 mGy.cm FINDINGS: Mild upper lobe predominant emphysema is present. Central airways are patent. Mild groundglass opacities reflect atelectasis. There is no consolidation to suggest pneumonia. There are no suspicious pulmonary nodules. There is no pneumothorax or pleural effusion. Abdomen and pelvis will be reported separately. No enlarged axillary, mediastinal or hilar lymph nodes are present. Slight loss of the superior endplates of T8 and T12 is chronic. There is a small hiatal hernia. IMPRESSION: 1. No acute process within the chest. 2. Mild upper lobe predominant emphysema. 3. No thoracic lymphadenopathy.
[2021-03-01 12:51] LABS: Hematocrit (blood only) 41.3 % (37-47); Hemoglobin 14.1 g/dL (12.0-16.0)
[2021-03-01] MEDS: cefTRIAXone SODIUM 1,000 MG in DEXTROSE 5% 50 ML IV SCH (13:16)
[2021-03-01] MEDS: METOPROLOL TARTRATE 50 MG TAB PO SCH ×2 (13:17→20:57)
--- NOTE | 2021-03-01 13:55 | Communication Note ---
Date of Service: March 01, 2021 Patient was seen and examined today. Continues to have significant abdominal discomfort. Reports she cannot give a specific description. Does state that it is burning- like in nature, reports it feels tight and and radiating to the back. Appreciate gastroenterology input. Continue with PPI. N.p.o. except meds for now.
[2021-03-01] MEDS: D5W AND NSS 1,000 ML IV SCH ×2 (14:26→23:05)
[2021-03-01] MEDS: PANTOprazole 40 MG in DEXTROSE 5% 100 ML IV SCH ×3 (14:30→18:29)
[2021-03-01 18:55] LABS: Hematocrit (blood only) 37.5 % (37-47); Hemoglobin 12.7 g/dL (12.0-16.0)
[2021-03-01 19:54] LABS: Appearance Urine Clear (Clear); Bacteria Urine Automated Negative (Negative); Bilirubin Urine Negative (Negative); Blood Urine Negative (Negative); Cast Urine Automated 0 /lpf (0-5); Color Urine Yellow; Epithelial Cell Urine Auto >30 /lpf (0-5); Glucose Urine UA Negative (Negative); Ketones Urine Negative (Negative); Leukocyte Esterase Urine Trace (Negative); Nitrite Urine Negative (Negative); Protein Urine Negative (Negative); RBC Urine Automated 0-4 /hpf (0-4); Specific Gravity Urine 1.017 (1.000-1.030); Urobilinogen Urine Negative (Negative)
[2021-03-02] MEDS: PANTOprazole 40 MG in DEXTROSE 5% 100 ML IV SCH ×3 (00:10→13:47)
[2021-03-02 00:45] LABS: Hematocrit (blood only) 38.7 % (37-47); Hemoglobin 13.2 g/dL (12.0-16.0)
[2021-03-02 06:33] LABS: BUN Creatinine Ratio 8.8 (10-20); Calcium 8.8 mg/dl (8.5-10.1); Creatinine Clr Calc Pharmacy 66.5 ml/min; Est GFR (African American) 106.3 ml/min; Est GFR (Non-African American) 91.7 ml/min; Magnesium 2.2 mg/dl (1.8-2.4); Potassium 4.2 mmol/L (3.5-5.1)
[2021-03-02 07:03] LABS: Basophils # (auto) 0.03 K/uL (0-0.2); Basophils % (auto) 0.4 %; Eosinophils % (auto) 5.2 %; Hematocrit (blood only) 38.1 % (37-47); Hemoglobin 12.9 g/dL (12.0-16.0); Immature Granulocytes # (auto) 0.01 K/uL (0.00-0.02); Immature Granulocytes % (auto) 0.1 %; Lymphocytes # (auto) 3.33 K/uL (1.2-3.4); Lymphocytes % (auto) 43.5 %; Mean Corpuscular Hemoglobin 31.9 pg (25-34); Mean Corpuscular Hgb Conc 33.9 g/dL (32-36); Mean Corpuscular Volume 94.1 fL (80-100); Mean Platelet Volume 9.1 fL (7.4-10.4); Monocytes # (auto) 0.57 K/uL (0.11-0.59); Monocytes % (auto) 7.4 %; Neutrophils # (auto) 3.32 K/uL (1.4-6.5); Neutrophils % (auto) 43.4 %; Platelet Count 380 K/uL (130-400); RDW Coefficient of Variation 13.1 % (11.5-14.5); RDW Standard Deviation 45.4 fL (36.4-46.3); Red Blood Count 4.05 M/uL (4.2-5.4); White Blood Count 7.66 K/uL (4.8-10.8)
[2021-03-02] MEDS: METOPROLOL TARTRATE 50 MG TAB PO SCH (09:25)
[2021-03-02] MEDS: cefTRIAXone SODIUM 1,000 MG in DEXTROSE 5% 50 ML IV SCH (13:46)
--- NOTE | 2021-03-02 16:25 | Hospitalist Progress Note ---
Date of Service March 02, 2021 Assessment & Plan (1) Epigastric abdominal pain: Plan: Nausea, vomiting, abdominal pain, questionable hematemesis Acute on chronic abdominal pain History of irritable bowel syndrome, nondysplastic Branch Patient presented with worsening abdominal pain. Patient reported hematemesis prior to admission. Hemoglobin remained stable. Hemodynamically patient is doing fine. Appreciate gastroenterology input. Recommended EGD/colonoscopy as an outpatient Also recommended MRI to assess for pancreatic cyst as an outpatient. Today patient reports that she is feeling very puffy fluids are making her swollen up. Will discontinue IV fluids. Discontinue IV Protonix. Start patient on p.o. Prilosec. Patient continues to be in significant distress due to pain. We will plan to obtain CTA of the abdomen. Currently on clear liquid diet. Advance diet later today. If CTA is negative and patient is tolerating diet, can be discharged tomorrow. Follow-up with gastroenterology as an outpatient. Cough with phlegm: COVID-19 is ruled out. Patient is active smoker. She recently did have Z-Daryl. Continue ceftriaxone for now. Hypertension: Continue metoprolol History of deep venous thrombosis and pulmonary embolism: Status post IVC filter. History of schizoaffective disorder and anxiety state, bipolar: Currently seems to be not on any medications. The patient was seen by psychiatry here in the hospital in 2019. At that time, she was placed on Remeron. Deep venous thrombosis prophylaxis: Sequential compression devices for now . Admission and Anticipated Discharge Date Admission Date: March 01, 2021 Subjective Patient appears to be in any distress. States currently she feels short of breath. Reports the fluids are making her puffy. States she feels her hands/f sujey swelling up. Denies any nausea or vomiting. Have been tolerating diet. Continues to experience abdominal pain. Very nonspecific and vague explanation of her abdominal pain. Reports the pain is mainly in the right upper quadrant. Denies any diarrhea or dysuria. Review of Systems Review of Systems: All systems reviewed & are unremarkable except as noted in HPI & below Physical Exam Physical Exam: General: A&Ox3 HENT: NCAT, MMM, EOMI Eyes: PERRLA Neck: Supple, normal range of motion CVS: normal rate and rhythm Resp: b/l decrease breath sounds Abdomen: Soft, mild diffuse tenderness Extremities: absence of any edema Neuro: face symmetric, no focal deficit Skin: warm and dry, no rashes/lesions/errythema MSK: no joint swelling/erythema Results & Data Results & Data ([facility]) Vital Signs (Past 12 Hours) Vital Signs Temp Pulse Pulse Resp BP Pulse Ox 03/02/21 15:27 36.8 C 77 20 167/81 H 97 03/02/21 11:55 37 C 68 18 125/71 98 03/02/21 08:00 67 03/02/21 07:28 36.8 C 79 18 175/77 H 99
[2021-03-03] MEDS ORDERED: PANTOprazole 40 MG TAB PO SCH (09:00)
--- NOTE | 2021-03-03 23:00 | Discharge Summary ---
Date of Service March 03, 2021 Admission HPI Per Admitting Provider This is a 70-year-old female with past medical history significant for hypertension, irritable bowel syndrome, history of DVT and PE, status post IVC filter, history of schizoaffective disorder, chronic pain, tobacco abuse, posttraumatic stress disorder, history of suicidal attempt by acetaminophen overdose, bipolar disorder, who presents because of abdominal pain and cough. The patient was in the ER on 02/19/2021 complaining of multiple problems and also cough and workup was okay and she was sent home on Z-NICK. The patient stated she took the medication for 4 days, and it seemed to help, but then again is having lot of cough and lot of phlegm and she is also having nausea and she has dry heaves and sometimes vomits. When she vomits, she has lot of phlegm in it and also some streaks of blood. She thinks it is coming from the stomach. She has a lot of abdominal pain, severe pain radiating to the back. Not able to eat much. Denies any diarrhea or constipation. Denies any blood in stools. Once in the while, stools are black. Denies any hematuria. She has some swelling in the left lower extremity, the leg swells on and off. She says she has chest pain from coughing. Has some headache. Sometimes she could feel blurred vision, sometimes feels her hearing is reduced on and off. Has sore throat, has some runny nose. Ambulates okay. Lives alone. Neighbors and daughter check on her. Currently, resting comfortably and hemodynamically stable. Admission Exam Per Admitting Provider GENERAL: The patient is of moderate build, not in acute distress. VITAL SIGNS: Temperature 36.9, pulse 61, respiratory rate 18, blood pressure 104/62, oxygen 98% on room air. HEENT: Pupils equal, round and reactive to light. Oral mucosa dry. NECK: No JVD, no neck masses. CARDIOVASCULAR: S1 and S2 heard. Regular rate and rhythm. No murmur, no gallop. RESPIRATORY SYSTEM: Normal AP diameter. No accessory muscle use. No wheezing, no crackles. ABDOMEN: Soft, bowel sounds present. Diffuse mild tenderness. Mild guarding. No rigidity, no distention. CENTRAL NERVOUS SYSTEM: Cranial nerves II-XII grossly intact, nonfocal. EXTREMITIES: Left lower extremity is slightly erythematous. No erythema seen. Principal Diagnosis Nausea/vomiting/hematemesis Discharge Exam General: A&Ox3 HENT: NCAT, MMM, EOMI Eyes: PERRLA Neck: Supple, normal range of motion CVS: normal rate and rhythm Resp: b/l decrease breath sounds Abdomen: Soft, mild diffuse tenderness Extremities: absence of any edema Neuro: face symmetric, no focal deficit Skin: warm and dry, no rashes/lesions/errythema MSK: no joint swelling/erythema Discharge Data Allergies Allergy/AdvReac Type Severity Reaction Status Date / Time atropine Allergy Severe castillo, hard Verified 03/01/21 00:14 time breathing clonidine Allergy Severe RAISES Unverified 03/01/21 00:14 B.P., ANXIOUSNESS diphenhydramine Allergy Severe "I ALMOST Verified 03/01/21 00:14 ." hyoscyamine Allergy Severe castillo, hard Verified 03/01/21 00:14 time breathing labetalol Allergy Severe selling,loss Verified 03/01/21 00:14 of taste,itch, rash phenobarbital Allergy Severe castillo, hard Verified 03/01/21 00:14 time breathing prednisone Allergy Severe Edema Verified 03/01/21 00:14 face,lips and tongue. scopolamine Allergy Severe castillo, hard Verified 03/01/21 00:14 time breathing enoxaparin Allergy Intermediate RASH Verified 03/01/21 00:14 levofloxacin Allergy Intermediate ARM TURNED Verified 03/01/21 00:14 "FIREY RED" WHEN INFUSED, CLEARED IN A FEW HOURS tramadol Allergy Intermediate blisters Verified 03/01/21 00:14 all over warfarin Allergy Intermediate rash Verified 03/01/21 00:14 chlorpromazine Allergy Mild TOLERATING Verified 03/01/21 00:14 PROLIXIN AT HOME 08 Penicillins Allergy Mild Unknown Verified 03/01/21 00:14 coumarin Allergy Unknown UNKNOWN Verified 03/01/21 00:14 naproxen Allergy Unknown Unknown Verified 03/01/21 00:14 morphine AdvReac Severe SHOCK;TOLERATES Verified 03/01/21 00:14 DEMEROL aspirin AdvReac Intermediate BLEEDING Verified 03/01/21 00:14 codeine AdvReac Intermediate BP DROPS Verified 03/01/21 00:14 AND PASSES OUT dicyclomine AdvReac Intermediate GI SYMPTOMS Verified 03/01/21 00:14 hydralazine AdvReac Intermediate palpitations Verified 03/01/21 00:14 as per px ibuprofen AdvReac Intermediate BLEEDING Verified 03/01/21 00:14 amitriptyline AdvReac Mild Nausea/vomi Verified 03/01/21 00:14 timg lisinopril AdvReac Mild COUGH Verified 03/01/21 00:14 nitrofurantoin AdvReac Unknown hallucinati Verified 03/01/21 00:14 ng Consultations 03/01/21 04:06 ED Decision to Admit Stat 03/01/21 12:08 Consult Gastroenterology Routine 03/02/21 17:10 Consult Psychiatry Routine Ordered Studies 02/28/21 23:53 CT abd pelvis IV con only Urgent CT chest diagnostic w con Urgent 03/02/21 13:10 CT angio abdomen pelvis w con Urgent Hospital Course (1) Epigastric abdominal pain: Nausea, vomiting, abdominal pain, questionable hematemesis Acute on chronic abdominal pain History of irritable bowel syndrome, nondysplastic Branch Patient presented with worsening abdominal pain. Patient reported hematemesis prior to admission. Hemoglobin remained stable. Hemodynamically patient is doing fine. Appreciate gastroenterology input. Recommended EGD/colonoscopy as an outpatient Also recommended MRI to assess for pancreatic cyst as an outpatient. On 03/02, CTA abdomen was ordered. however, as per RN, patient refused it. At 4:56 PM I was notifed that patient is acting strange. Latonia tto evaluate the patient immediately. Patient was awake, alert and oriented x3. Neurological exam was bening. Patinet refused that she denies to have CTA abdomen done. [facility] staff was concerned that she took some pills. Urine drug screen was ordered and psychaitry was consulted given her hisotry of schizoaffective disorder. Security was called to have patient belongings confiscated to avoid taking any unknown pills. Later uplon leaving, I was notifed that patient became upset and decided to leave against AMA. Cough with phlegm: COVID-19 is ruled out. Patient is active smoker. She recently did have Z-Nick. Hypertension: Continue metoprolol History of deep venous thrombosis and pulmonary embolism: Status post IVC filter. History of schizoaffective disorder and anxiety state, bipolar: Currently seems to be not on any medications. The patient was seen by psychiatry here in the hospital in 2019. At that time, she was placed on Remeron. Total Time Total Time Spent Total Time Spent (In Minutes): 25 Discharge Plan Discharge Items Patient Disposition: Against Medical Advice Reason For Visit: ABDOMINAL PAIN Follow-up/Referrals: Kari Beckwith PA-C [Primary Care Provider] - Stand-Alone Forms: [facility], Smoking Cessation Medications and DC Order Prescriptions: No Action aspirin [Aspirin Childrens] 81 mg tablet,chewable 81 mg PO DAILY RF: 0 metoprolol tartrate 50 mg Tablet 50 mg PO BID RF: 0 Discharge Orders: Left Against Medical Advice (Routine); Ordered 03/02/21 Ordered By: Jayme Miranda Admission Data Admit Date/Time: 03/01/21 05:10 Attending Provider: Jayme Miranda Admit Provider: Scooby Delvalle Primary Care Provider: Kari Beckwith Other Providers: Scooby Delvalle ; Virgie Crook ; Marietta Olivas ; Fany Royal ; Whit Shetty ; Nathaniel Culver ; Kenney Zuniga ; Jarocho Lopez ; Dariel Madrigal ; Nita Clark ; Hilaria Livingston ; Brooke Goldberg ; Swetha Nicole ; Kevin Villareal ; Graham Quick ; Ana Maria Souza ; Dr Tevin ; Meggan Cooper Other Interventions: Discharge Summary Assessment (RN) Last Done: 03/02/21 18:26
== END 2021-03-02 18:27 | disposition left against medical advice (07) | DRG 392 ==
LOC: ED 22:46 → 2W 03-01 05:10

== ENCOUNTER 2022-02-26 19:48 | Inpatient (IN) ==
--- NOTE | 2022-02-26 20:00 | Emergency Department Note ---
Impression & Plan Syncope, Shortness of breath ED Provider Note NAME: ROBBY AGUILAR AGE: 71 SEX: F : 1950 ARRIVES VIA: Ambulance INFORMANT: [Patient][, ] ED PROVIDER(S): [Garrett Elise MD] Chief Complaint: [] HPI: Patient presented due to concern for possible syncope. The patient was found unresponsive by bystander [place] EMS arrived and the patient was more with it. The patient had initially refused treatment but then was willing to present. The patient states that she felt very hot. The patient sta nivia that she has poor circulation in her home does not have great ways of keeping cool as there is no AC in her house. Patient is also having some general soreness and chronic pains. The patient denies any nausea vomiting. Patient denies any bowel or bladder issues. The patient denies any tongue biting or incontinence. There was no reported seizure. The patient had reassuring vital signs. The patient was feeling as though she was out of breath but that oxygen seemed to improve her symptoms. The patient is a smoker. Patient denies any current chest pains. Patient denies any leg swelling. ROS: See HPI for pertinent positives and negatives. A total of 10 systems were reviewed and otherwise negative. Past medical history: See below Surgical history: See below Social history: See below Physical Exam: GENERAL: Wearing sunglasses, nontoxic in appearance. EYE EXAM: Normal conjunctiva. PERRL, no anisocoria and EOM's grossly intact w/o pain. Oropharynx: Edentulous. NECK: Supple, no nuchal rigidity, no adenopathy, non-tender. No signs of meningismus. FROM of the neck with good chin to chest and neck extension. No stridor. LUNGS: Clear to auscultation. Normal chest wall mechanics. No obvious wheezing rhonchi or crackles. HEART: NSR, no MRG. ABDOMEN: Abdomen soft, non-tender, normo-active bowel sounds, no masses, no rebound or guarding. BACK: No CVA TTP. SKIN: No rashes and no bruising. UPPER EXTREMITIES: Upper extremities are grossly normal. LOWER EXTREMITIES: Grossly normal, no edema. Negative Homans' sign bilaterally. NEURO EXAM: A&O x3, cranial nerves II-XII grossly intact, normal speech, moves all 4 extremities. Differential diagnoses: Vasovagal event, dehydration, infection, hypoglycemia, electrolyte abnormalities, cardiac sources, intracerebral event, pulmonary embolism, seizure, toxicologic, neurologic, as well as other pathologies. Course: Patient was seen and evaluated the bedside. Full history physical exam was performed. EKG interpreted by me Normal sinus rhythm, rate 80, normal intervals, normal axis, no ST elevations. Imaging Studies: See Below Cardiac monitoring: An order was placed for continuous cardiac monitoring. The monitor shows a rate of [] with [] rhythm. MDM: Patient had initially refused treatment after dose of Ativan was willing to have blood work completed. No line was placed. Patient's blood work was grossly unremarkable. Given the patient's syncopal event with known comorbidities I did discuss if the patient would be willing to stay. The patient is currently amenable and is agreeable to having an IV placed. I did speak with Dr. Delvalle and the patient was to be admitted by the medicine service. Past Med/Surg History Medical History (Updated 03/02/22 @ 16:50 by Garrett Elise MD) COPD (chronic obstructive pulmonary disease) Cystic mass of pancreas DVT (deep venous thrombosis) H/O drug abuse High blood pressure Hypertension Hypertensive urgency Posttraumatic stress disorder (01/14/13) Schizoaffective disorder (01/22/12) Tobacco abuse Surgical History History of cystoscopy History of inferior vena caval filter placement Family History Father Myocardial infarction, Onset Age: 66 Diabetes Mother Stroke Colorectal cancer Other Family history non-contributory Social History Smoking Status: Former smoker Tobacco Type: Cigarettes Cigarettes Per Day: 1.5 PPD; Second Hand Exposure: No; Hx Alcohol Use: No Hx Substance Use: No Preferred Language: Turkmen Communication Ability: Effective Visual Impairment: No Limitations Hearing Ability: Normal Ab Initio Etl Developer Required: No Beliefs That Will Affect Care: None marital status: Single Current Living Situation: Alone Current Living Situation Comment: Living in apartment in [place] Other Information That Helps Us Care for You: No Feels Safe at Home: Yes Safety Concerns: Feels Safe At This Time Assistive Devices: None Allergies Allergies Allergy/AdvReac Type Severity Reaction Status Date / Time atropine Allergy Severe castillo, hard Verified 02/26/22 20:30 time breathing clonidine Allergy Severe RAISES Verified 02/26/22 20:30 B.P., ANXIOUSNESS diphenhydramine Allergy Severe "I ALMOST Verified 02/26/22 20:30 ." hyoscyamine Allergy Severe castillo, hard Verified 02/26/22 20:30 time breathing labetalol Allergy Severe selling,loss Verified 02/26/22 20:30 of taste,itch, rash phenobarbital Allergy Severe castillo, hard Verified 02/26/22 20:30 time breathing prednisone Allergy Severe Edema Verified 02/26/22 20:30 face,lips and tongue. scopolamine Allergy Severe castillo, hard Verified 02/26/22 20:30 time breathing enoxaparin Allergy Intermediate RASH Verified 02/26/22 20:30 levofloxacin Allergy Intermediate ARM TURNED Verified 02/26/22 20:30 "FIREY RED" WHEN INFUSED, CLEARED IN A FEW HOURS tramadol Allergy Intermediate blisters Verified 02/26/22 20:30 all over warfarin Allergy Intermediate rash Verified 02/26/22 20:30 chlorpromazine Allergy Mild TOLERATING Verified 02/26/22 20:30 PROLIXIN AT HOME 01/15/08 coumarin Allergy Unknown UNKNOWN Verified 02/26/22 20:30 naproxen Allergy Unknown Unknown Verified 02/26/22 20:30 Penicillins Allergy Unknown Unknown Verified 02/26/22 20:30 morphine AdvReac Severe SHOCK;TOLERATES Verified 02/26/22 20:30 DEMEROL amitriptyline AdvReac Intermediate Nausea/vomi Verified 02/26/22 20:30 timg aspirin AdvReac Intermediate BLEEDING Verified 02/26/22 20:30 codeine AdvReac Intermediate BP DROPS Verified 02/26/22 20:30 AND PASSES OUT dicyclomine AdvReac Intermediate GI SYMPTOMS Verified 02/26/22 20:30 hydralazine AdvReac Intermediate palpitations Verified 02/26/22 20:30 as per px ibuprofen AdvReac Intermediate BLEEDING Verified 02/26/22 20:30 lisinopril AdvReac Intermediate COUGH Verified 02/26/22 20:30 nitrofurantoin AdvReac Intermediate hallucinati Verified 02/26/22 20:30 ng Home Meds Home Medications Medication Instructions Recorded Confirmed aspirin 81 mg chewable tablet 81 mg PO DAILY 06/30/19 02/26/22 (Aspirin Childrens) metoprolol tartrate 50 mg tablet 50 mg PO BID PRN PER PT " 10/05/19 02/26/22 NEEDED". Results & Data (ED) Home Medications Current Medication List: was personally reviewed by me Laboratory Data Attestation: I reviewed the patient's lab results. Result diagrams: 02/27/22 06:26 02/27/22 06: Lab Results 02/26/22 02/26/22 02/26/22 Range/Units 22:01 22:01 22:01 WBC 10.03 (4.8-10.8) K/ul RBC 4.53 (3.93-5.22) M/uL Hgb 14.5 (12.0-16.0) g/dl Hct 41.3 (34.1-44.9) % MCV 91.2 (80.0-100.0) fL MCH 32.0 (25.0-34.0) pg MCHC 35.1 (32.0-36.0) g/dL RDW Std Deviation 41.2 (36.4-46.3) fL RDW Coeff of Blas 12.4 (11.5-14.5) % Plt Count 389 (130-400) K/uL MPV 9.0 L (9.4-12.3) fL Immature Gran % (Auto) 0.3 % Neut % (Auto) 61.4 % Lymph % (Auto) 30.8 % [place] % (Auto) 6.6 % Eos % (Auto) 0.2 % Baso % (Auto) 0.7 % Neut # (Auto) 6.16 (1.4-6.5) K/uL Lymph # (Auto) 3.09 (1.2-3.4) K/uL [place] # (Auto) 0.66 (0.24-0.82) K/uL Eos # (Auto) 0.02 (0-0.50) K/uL Baso # (Auto) 0.07 (0-0.2) K/uL Immature Gran # (Auto) 0.03 H (0.00-0.02) K/uL Sodium 135 L (136-145) mmol/L Potassium 3.8 (3.5-5.1) mmol/L Chloride 104 (98-107) mmol/L Carbon Dioxide 22 (21-32) mmol/L Anion Gap 9 (3-11) BUN 6 (6-23) mg/dl Creatinine 0.73 (0.6-1.2) mg/dl Est Cr Clr Drug Dosing 57.5 ml/min Est GFR ( Amer) 97.4 ml/min Est GFR (Non-Af Amer) 84.0 ml/min BUN/Creatinine Ratio 8.2 L (10-20) Glucose 103 H (70-99(Fasting)) mg/dl Calcium 9.5 (8.5-10.1) mg/dl Magnesium 2.1 (1.7-2.4) mg/dl Total Bilirubin 0.7 (0.2-1.0) mg/dl AST 14 (13-39) U/L ALT 16 (7-52) U/L Alkaline Phosphatase 78 (34-104) U/L Total Creatine Kinase 85 (26-192) U/L Troponin I High Sens 4.4 (0-14) pg/ml Total Protein 7.5 (6.0-8.3) gm/dl Albumin 4.6 (3.4-5.0) gm/dl Globulin 2.9 (2.5-4.0) gm/dl Albumin/Globulin Ratio 1.6 (0.9-2) TSH 1.097 (0.300-4.500) uIu/ml Ethyl Alcohol mg/dL (<10.0) mg/dl SARS-CoV-2, RNA, NAAT (NEGATIVE) 02/26/22 02/26/22 Range/Units 22:01 23:23 WBC (4.8-10.8) K/ul RBC (3.93-5.22) M/uL Hgb (12.0-16.0) g/dl Hct (34.1-44.9) % MCV (80.0-100.0) fL MCH (25.0-34.0) pg MCHC (32.0-36.0) g/dL RDW Std Deviation (36.4-46.3) fL RDW Coeff of Blas (11.5-14.5) % Plt Count (130-400) K/uL MPV (9.4-12.3) fL Immature Gran % (Auto) % Neut % (Auto) % Lymph % (Auto) % [place] % (Auto) % Eos % (Auto) % Baso % (Auto) % Neut # (Auto) (1.4-6.5) K/uL Lymph # (Auto) (1.2-3.4) K/uL [place] # (Auto) (0.24-0.82) K/uL Eos # (Auto) (0-0.50) K/uL Baso # (Auto) (0-0.2) K/uL Immature Gran # (Auto) (0.00-0.02) K/uL Sodium (136-145) mmol/L Potassium (3.5-5.1) mmol/L Chloride (98-107) mmol/L Carbon Dioxide (21-32) mmol/L Anion Gap (3-11) BUN (6-23) mg/dl Creatinine (0.6-1.2) mg/dl Est Cr Clr Drug Dosing ml/min Est GFR ( Amer) ml/min Est GFR (Non-Af Amer) ml/min BUN/Creatinine Ratio (10-20) Glucose (70-99(Fasting)) mg/dl Calcium (8.5-10.1) mg/dl Magnesium (1.7-2.4) mg/dl Total Bilirubin (0.2-1.0) mg/dl AST (13-39) U/L ALT (7-52) U/L Alkaline Phosphatase (34-104) U/L Total Creatine Kinase (26-192) U/L Troponin I High Sens (0-14) pg/ml Total Protein (6.0-8.3) gm/dl Albumin (3.4-5.0) gm/dl Globulin (2.5-4.0) gm/dl Albumin/Globulin Ratio (0.9-2) TSH (0.300-4.500) uIu/ml Ethyl Alcohol mg/dL < 10.0 (<10.0) mg/dl SARS-CoV-2, RNA, NAAT NEGATIVE (NEGATIVE) Administered Medications Discontinued Medications Aspirin (Aspirin 81 Mg Ectab) 81 mg PO DAILY GENARO Stop: 03/29/22 08:59 Last Admin: 02/27/22 08:46 Dose: 81 mg Documented By: [id number] Fentanyl Citrate (Fentanyl Citrate 100 Mcg/2 Ml Vial) 25 mcg IV NOW STA Stop: 02/26/22 20:11 Last Admin: 02/26/22 23:00 Dose: Not Given Documented By: DMITRIY Hydromorphone HCl (Hydromorphone Inj 0.5 Mg/0.5 Ml Syr) 0.25 mg IV NOW STA Stop: 02/27/22 00:13 Last Admin: 02/27/22 01:43 Dose: Not Given Documented By: CHANTEL Sodium Chloride (Nss 1000ml) 1,000 mls @ 999 mls/hr IV .Q1H1M [facility] Stop: 02/26/22 21:15 Last Admin: 02/26/22 22:59 Dose: Not Given Documented By: DMITRIY Dextrose/Sodium Chloride (D5w And 1/2nss) 1,000 mls @ 100 mls/hr IV .Q10H [facility] Stop: 03/29/22 01:09 Last Admin: 02/27/22 02:00 Dose: Not Given Documented By: CHANTEL Levalbuterol HCl (Levalbuterol Tartrate 15 Gm Hfa.Aer.Ad) 2 puffs INH QIDR [facility] Stop: 03/29/22 06:59 Last Admin: 02/27/22 07:42 Dose: Not Given Documented By: JOELLE Lorazepam (Lorazepam 2 Mg/1 Ml Vial) 1 mg IM NOW STA; Protocol Stop: 02/26/22 21:00 Last Admin: 02/26/22 21:33 Dose: 1 mg Documented By: DMITRIY Metoprolol Tartrate (Metoprolol Tartrate 50 Mg Tab) 50 mg PO BID [facility] Stop: 03/29/22 08:59 Last Admin: 02/27/22 08:46 Dose: 50 mg Documented By: [id number] Oxycodone HCl (Oxycodone Hcl Ir 5 Mg Tab (Immediate Release)) 5 mg PO NOW STA Stop: 02/27/22 05:44 Last Admin: 02/27/22 06:05 Dose: 5 mg Documented By: CHANTEL Discharge Plan Visit Data Chief Complaint: Syncope Stated Complaint: syncope ED Provider: Garrett Elise Discharge Problem: Syncope, Shortness of breath Patient Disposition: Admitted As Inpatient Discharge Instructions Interventions: ED Discharge Assessment Last Done: 02/27/22 01:12
[2022-02-26] MEDS ORDERED: fentaNYL citrate 100 MCG/2 ML VIAL IV STA (20:10)
[2022-02-26] MEDS ORDERED: SODIUM CHLORIDE 0.9% 1000ML 1,000 ML IV SCH (20:15)
[2022-02-26] MEDS ORDERED: LORazepam 2 MG/1 ML VIAL IM STA (20:59)
[2022-02-26 22:20] LABS: Basophils # (auto) 0.07 K/uL (0-0.2); Basophils % (auto) 0.7 %; Eosinophils # (auto) 0.02 K/uL (0-0.50); Eosinophils % (auto) 0.2 %; Hematocrit (blood only) 41.3 % (34.1-44.9); Hemoglobin 14.5 g/dl (12.0-16.0); Immature Granulocytes # (auto) 0.03 K/uL (0.00-0.02); Immature Granulocytes % (auto) 0.3 %; Lymphocytes # (auto) 3.09 K/uL (1.2-3.4); Lymphocytes % (auto) 30.8 %; Mean Corpuscular Hgb Conc 35.1 g/dL (32.0-36.0); Mean Corpuscular Volume 91.2 fL (80.0-100.0); Monocytes # (auto) 0.66 K/uL (0.24-0.82); Monocytes % (auto) 6.6 %; Neutrophils # (auto) 6.16 K/uL (1.4-6.5); Neutrophils % (auto) 61.4 %; Platelet Count 389 K/uL (130-400); RDW Coefficient of Variation 12.4 % (11.5-14.5); RDW Standard Deviation 41.2 fL (36.4-46.3); Red Blood Count 4.53 M/uL (3.93-5.22); White Blood Count 10.03 K/ul (4.8-10.8)
[2022-02-26 22:37] LABS: Albumin Globulin Ratio 1.6 (0.9-2); Albumin Level 4.6 gm/dl (3.4-5.0); BUN Creatinine Ratio 8.2 (10-20); Bilirubin,Total 0.7 mg/dl (0.2-1.0); Calcium 9.5 mg/dl (8.5-10.1); Creatinine Clr Calc Pharmacy 57.5 ml/min; Est GFR (African American) 97.4 ml/min; Globulin 2.9 gm/dl (2.5-4.0); Magnesium 2.1 mg/dl (1.7-2.4); Potassium 3.8 mmol/L (3.5-5.1); Total Protein 7.5 gm/dl (6.0-8.3)
[2022-02-26 22:43] LABS: Troponin I High Sensitivity 4.4 pg/ml (0-14)
[2022-02-27] MEDS ORDERED: HYDROmorphone INJ 0.5 MG/0.5 ML SYR IV STA (00:12)
[2022-02-27] MEDS ORDERED: D5W AND 1/2NSS 1,000 ML IV SCH (01:10)
[2022-02-27] MEDS ORDERED: NITROGLYCERIN SL 0.4 MG/TAB TAB SL PRN (01:10)
[2022-02-27] MEDS ORDERED: ONDANSETRON INJ 2 MG/ML 2 ML VIAL IV PRN (01:10)
[2022-02-27] MEDS ORDERED: ACETAMINOPHEN 325 MG TAB PO PRN (01:10)
[2022-02-27] MEDS ORDERED: POLYETHYLENE (MIRALAX) 17 GM PACK PO PRN (01:10)
[2022-02-27] MEDS ORDERED: hydrALAZINE HCL 20 MG/ML VIAL IV PRN (01:10)
--- NOTE | 2022-02-27 03:11 | History and Physical Report ---
DATE OF ADMISSION: 02/27/2022. CHIEF COMPLAINT: Syncope. HISTORY OF PRESENT ILLNESS: A 71-year-old female with past medical history significant for hypertension, irritable bowel syndrome, history of DVT and PE, status post IVC filter, history of schizoaffective disorder, chronic pain, tobacco abuse, posttraumatic stress disorder, history of suicidal attempt by acetaminophen overdose, bipolar disorder, anxiety, presents with syncope. The patient says she was moving her cart from the [employer] store to her apartment when she felt hot, dizzy, she sat on the grass and laid down on the grass, she thinks she passed out for 1-2 minutes. She thinks someone in the car called EMS.Currently alert, awake, and oriented. She says she has no AC in her house for the last 2 days and feeling very hot and warm and sweaty, feeling hot and sore all over the body. She says she has chronic chest pains, feels burning sensation in the stomach. She is bringing phlegm which she thinks coming from the stomach, has some headache, no blurred visions. She has some right ear pain. She has some runny nose. No sore throat. Appetite is okay. Has nausea. Denies any blood in stools or black stools. Normal bowel and bladder movements. Currently, ambulating okay in the ER, blood pressure running high. She states she is supposed to take metoprolol twice daily, but sometimes she takes more than that and she is not taking any inhalers because inhalers causes palpitations. She says oxygen helps her. ALLERGIES: TO ATROPINE, CLONIDINE, DIPHENHYDRAMINE, HYOSCYAMINE, LABETALOL, PHENOBARBITAL, PREDNISONE, SCOPOLAMINE, ENOXAPARIN, LEVOFLOXACIN, TRAMADOL, WARFARIN, CHLORPROMAZINE, COUMADIN, NAPROXEN, PENICILLINS, MORPHINE, AMITRIPTYLINE, ASPIRIN, CODEINE, DICYCLOMINE, HYDRALAZINE, IBUPROFEN, LISINOPRIL, NITROFURANTOIN. PAST MEDICAL HISTORY: As mentioned above. PAST SURGICAL HISTORY: Cystoscopy, EGD with biopsy, IVC filter, throat surgery. MEDICATIONS: The patient is on daily aspirin 81 mg p.o. daily, metoprolol 50 mg p.o. b.i.d., sometimes takes more than that. FAMILY HISTORY: Significant for mother had colon cancer, heart disorder, high lipids; father had blood clot, bypass valve, diabetes; sister has thyroid problems. SOCIAL HISTORY: Lives alone. She states that her daughter lives about one hour from her. As per the patient, she smokes 1.5 packs of cigarettes daily for 37 years, but the patient says currently she is not smoking that much. No alcohol use currently. No drug use as per the patient. REVIEW OF SYSTEMS: As per HPI. Rest of review of systems is negative. PHYSICAL EXAMINATION: GENERAL: The patient looks old and frail. VITAL SIGNS: Temperature 37, pulse 80, respiratory rate 19, blood pressure 204/108, oxygen 98% on room air. HEENT: Pupils equal, round and reactive to light. Oral mucosa dry. NECK: No JVD, no neck masses. CARDIOVASCULAR: S1 and S2 heard. Regular rate and rhythm. No murmur, no gallop. RESPIRATORY SYSTEM: Normal AP diameter. No accessory muscle use. No wheezing, no crackles. ABDOMEN: Soft, bowel sounds present, nontender, no distention. CENTRAL NERVOUS SYSTEM: Alert and awake, oriented. No facial droop. Speech is okay. Insight is okay. Obeys simple commands. Moves extremities. EXTREMITIES: No edema seen, no erythema. Moving extremities. LABORATORY DATA: WBC 10.03, hemoglobin 14.5, hematocrit 41.3, platelets 389. Sodium 135, potassium 3.8, chloride 104, bicarbonate 22, BUN 6, creatinine 0.7, serum glucose 103, calcium 9.5, magnesium 2.1, total bilirubin 0.7, AST 14, ALT 16, alkaline phosphatase 78. Total creatinine kinase 85. Troponin I high sensitivity 4.4. TSH 1.09. Ethyl alcohol less than 10. SARS-CoV-2 RNA negative. EKG: Normal sinus rhythm at a rate of 80, no acute ST changes seen. ASSESSMENT AND PLAN: This is a 71-year-old female who presents with syncope. 1. Syncope. The patient says her AC was not working at home for the last 2 days and feeling very hot. Her EKG is okay, troponin is okay, we will monitor in tele. We will check orthostatics. Place on IV fluids. Serial cardiac enzymes, echocardiogram. If any concern, consult Cardiology. 2. Hypertension. Blood pressure running high. Continue with home metoprolol and place her on IV hydralazine p.r.n. 3. History of tobacco abuse. 4. History of chronic obstructive pulmonary disease. Not taking inhalers, because it causes palpitations. Place her on Xopenex for now and monitor. 5. Deep venous thrombosis prophylaxis: SCDs for now. Addendum: Patient wanted to go home and sign AMA as she feeling uncomfortable in ER room.. But agreed to stay for echo and further monitoring. Seems refused iv line. Says it hurts to get line but agrees to attempt for line again. Talked with daughter and daughter is going to talk to patient for the patient to stay in the hosptal. DISPOSITION: Closely monitor in the med tele. PT/OT prior to discharge. Social service to help with discharge planning. Job ID: [id number] GAVIN
[2022-02-27] MEDS ORDERED: oxyCODONE HCL IR 5 MG TAB (IMMEDIATE RELEASE) PO STA (05:43)
[2022-02-27 06:45] LABS: Basophils # (auto) 0.06 K/uL (0-0.2); Basophils % (auto) 0.7 %; Hematocrit (blood only) 41.6 % (34.1-44.9); Hemoglobin 14.3 g/dl (12.0-16.0); Immature Granulocytes # (auto) 0.02 K/uL (0.00-0.02); Immature Granulocytes % (auto) 0.2 %; Lymphocytes # (auto) 2.27 K/uL (1.2-3.4); Lymphocytes % (auto) 27.2 %; Mean Corpuscular Hemoglobin 31.8 pg (25.0-34.0); Mean Corpuscular Hgb Conc 34.4 g/dL (32.0-36.0); Mean Corpuscular Volume 92.4 fL (80.0-100.0); Monocytes # (auto) 0.74 K/uL (0.24-0.82); Monocytes % (auto) 8.9 %; Neutrophils # (auto) 5.25 K/uL (1.4-6.5); Platelet Count 351 K/uL (130-400); RDW Coefficient of Variation 12.6 % (11.5-14.5); RDW Standard Deviation 42.9 fL (36.4-46.3); White Blood Count 8.34 K/ul (4.8-10.8)
[2022-02-27] MEDS ORDERED: LEVALBUTEROL TARTRATE 15 GM HFA.AER.AD INH SCH (07:00)
[2022-02-27 07:40] LABS: BUN Creatinine Ratio 9.7 (10-20); Calcium 9.3 mg/dl (8.5-10.1); Creatinine Clr Calc Pharmacy 58.3 ml/min; Est GFR (Non-African American) 85.4 ml/min; Potassium 3.6 mmol/L (3.5-5.1)
[2022-02-27 07:45] LABS: Troponin I High Sensitivity 3.4 pg/ml (0-14)
[2022-02-27] MEDS ORDERED: ASPIRIN 81 MG ECTAB PO SCH (09:00)
[2022-02-27] MEDS ORDERED: METOPROLOL TARTRATE 50 MG TAB PO SCH (09:00)
[2022-02-27] MEDS ORDERED: POTASSIUM CHLORIDE PWD 20 MEQ PACK PO ONE (10:27)
--- NOTE | 2022-02-27 11:11 | Hospitalist Progress Note ---
Date of Service February 27, 2022 Assessment & Plan Admission and Anticipated Discharge Date Admission Date: February 27, 2022 Subjective Notified by RN in ED, that the patient left the ED without notifying anybody. I did not see/examine the patient. MD Yayo Results & Data Results & Data ([facility]) Vital Signs (Past 12 Hours) Vital Signs Temp Pulse Pulse Resp BP BP Pulse Ox 02/27/22 09:30 02/27/22 09:21 36.7 C 66 18 174/80 H 99 02/27/22 08:45 36.7 C 66 18 174/80 H 99 02/27/22 03:41 66 16 164/68 H 100 02/27/22 00:58 65 16 151/81 H 100 O2 Del Method 02/27/22 09:30 Room Air 02/27/22 09:21 Room Air 02/27/22 08:45 Room Air 02/27/22 03:41 Room Air 02/27/22 00:58 Room Air
--- NOTE | 2022-02-27 11:15 | Discharge Summary ---
Date of Service February 27, 2022 Admission HPI Per Admitting Provider A 71-year-old female with past medical history significant for hypertension, irritable bowel syndrome, history of DVT and PE, status post IVC filter, history of schizoaffective disorder, chronic pain, tobacco abuse, posttraumatic stress disorder, history of suicidal attempt by acetaminophen overdose, bipolar disorder, anxiety, presents with syncope. The patient says she was moving her cart from the [employer] store to her apartment when she felt hot, dizzy, she sat on the grass and laid down on the grass, she thinks she passed out for 1-2 minutes. She thinks someone in the car called EMS.Currently alert, awake, and oriented. She says she has no AC in her house for the last 2 days and feeling very hot and warm and sweaty, feeling hot and sore all over the body. She says she has chronic chest pains, feels burning sensation in the stomach. She is bringing phlegm which she thinks coming from the stomach, has some headache, no blurred visions. She has some right ear pain. She has some runny nose. No sore throat . Appetite is okay. Has nausea. Denies any blood in stools or black stools. Normal bowel and bladder movements. Currently, ambulating okay in the ER, blood pressure running high. She states she is supposed to take metoprolol twice daily, but sometimes she takes more than that and she is not taking any inhalers because inhalers causes palpitations. She says oxygen helps her. Admission Exam Per Admitting Provider GENERAL: The patient looks old and frail. VITAL SIGNS: Temperature 37, pulse 80, respiratory rate 19, blood pressure 204/108, oxygen 98% on room air. HEENT: Pupils equal, round and reactive to light. Oral mucosa dry. NECK: No JVD, no neck masses. CARDIOVASCULAR: S1 and S2 heard. Regular rate and rhythm. No murmur, no gallop. RESPIRATORY SYSTEM: Normal AP diameter. No accessory muscle use. No wheezing, no crackles. ABDOMEN: Soft, bowel sounds present, nontender, no distention. CENTRAL NERVOUS SYSTEM: Alert and awake, oriented. No facial droop. Speech is okay. Insight is okay. Obeys simple commands. Moves extremities. EXTREMITIES: No edema seen, no erythema. Moving extremities. Principal Diagnosis Syncope Discharge Exam Pt not examined, as she left the ED without notifying anyone. Discharge Data Allergies Allergy/AdvReac Type Severity Reaction Status Date / Time atropine Allergy Severe castillo, hard Verified 02/26/22 20:30 time breathing clonidine Allergy Severe RAISES Verified 02/26/22 20:30 B.P., ANXIOUSNESS diphenhydramine Allergy Severe "I ALMOST Verified 02/26/22 20:30 ." hyoscyamine Allergy Severe castillo, hard Verified 02/26/22 20:30 time breathing labetalol Allergy Severe selling,loss Verified 02/26/22 20:30 of taste,itch, rash phenobarbital Allergy Severe castillo, hard Verified 02/26/22 20:30 time breathing prednisone Allergy Severe Edema Verified 02/26/22 20:30 face,lips and tongue. scopolamine Allergy Severe castillo, hard Verified 02/26/22 20:30 time breathing enoxaparin Allergy Intermediate RASH Verified 02/26/22 20:30 levofloxacin Allergy Intermediate ARM TURNED Verified 02/26/22 20:30 "FIREY RED" WHEN INFUSED, CLEARED IN A FEW HOURS tramadol Allergy Intermediate blisters Verified 02/26/22 20:30 all over warfarin Allergy Intermediate rash Verified 02/26/22 20:30 chlorpromazine Allergy Mild TOLERATING Verified 02/26/22 20:30 PROLIXIN AT HOME 01/15/08 coumarin Allergy Unknown UNKNOWN Verified 02/26/22 20:30 naproxen Allergy Unknown Unknown Verified 02/26/22 20:30 Penicillins Allergy Unknown Unknown Verified 02/26/22 20:30 morphine AdvReac Severe SHOCK;TOLERATES Verified 02/26/22 20:30 DEMEROL amitriptyline AdvReac Intermediate Nausea/vomi Verified 02/26/22 20:30 timg aspirin AdvReac Intermediate BLEEDING Verified 02/26/22 20:30 codeine AdvReac Intermediate BP DROPS Verified 02/26/22 20:30 AND PASSES OUT dicyclomine AdvReac Intermediate GI SYMPTOMS Verified 02/26/22 20:30 hydralazine AdvReac Intermediate palpitations Verified 02/26/22 20:30 as per px ibuprofen AdvReac Intermediate BLEEDING Verified 02/26/22 20:30 lisinopril AdvReac Intermediate COUGH Verified 02/26/22 20:30 nitrofurantoin AdvReac Intermediate hallucinati Verified 02/26/22 20:30 ng Consultations 02/26/22 23:15 ED Decision to Admit Stat 02/27/22 08:00 Consult Cardiology Routine Total Time Total Time Spent Total Time Spent (In Minutes): 0 Discharge Plan Discharge Items Patient Disposition: Against Medical Advice Reason For Visit: syncope Activity: As commented below Activity Comment: Pt left without notifying anyone. Non-emergency contact: Primary Care Provider Follow-up/Referrals: Tim Moran, PA-C [Primary Care Provider] - Pending Studies at Discharge: No Stand-Alone Forms: [employer], Smoking Cessation Medications and DC Order Prescriptions: Continued aspirin [Aspirin Childrens] 81 mg tablet,chewable 81 mg PO DAILY Rx Instructions: PER PT "PUT IT UNDER MY TONGUE AND LET IT DISSOLVE, IRRITATES MY STOMACH IF SWALLOWED". metoprolol tartrate 50 mg Tablet 50 mg PO BID PRN (Reason: PER PT " NEEDED".) Discharge Orders: Left Against Medical Advice (Routine); Ordered 02/27/22 Ordered By: Shekhar Zee Admission Data Admit Date/Time: 02/27/22 00:11 Attending Provider: Shekhar Zee Admit Provider: Scooby Delvalle Primary Care Provider: Tim Moran Other Providers: Scooby Delvalle ; Andrew Rm
--- NOTE | 2022-02-27 14:36 | Electrocardiogram Report ---
Test Reason : Blood Pressure : / mmHG Vent. Rate : 080 BPM Atrial Rate : 080 BPM P-R Int : 178 ms QRS Dur : 064 ms QT Int : 384 ms P-R-T Axes : 034 025 057 degrees QTc Int : 442 ms Normal sinus rhythm Normal ECG When compared with ECG of 03-MAR-2021 04:40, Criteria for Septal infarct are no longer Present Confirmed by Juan Jose Churchill ([id number]) on 02/27/2022 2:35:59 PM Referred By: REFERRED SELF Confirmed By:Juan Jose Churchill
--- NOTE | 2022-03-02 13:11 | Communication Note ---
Date of Service: March 02, 2022 Pt left AMA prior to my evaluation.
== END 2022-02-27 11:00 | disposition left against medical advice (07) | DRG 312 ==
LOC: ED 19:48 → 3W 02-27 00:11 → EDINP 02-27 00:11

== ENCOUNTER 2023-04-03 17:36 | Observation (INO) ==
--- NOTE | 2023-04-03 18:33 | Emergency Department Note ---
Impression & Plan Hypertensive urgency, Medical non-compliance, Chronic mental illness, Schizoaffective disorder, Unsatisfactory living conditions ED Provider Note NAME: ROBBY AGUILAR AGE: 72 SEX: F ARRIVES VIA: Ambulance INFORMANT: Patient ED PROVIDER(S): Janak Sweeney MD CHIEF COMPLAINT: Confusion, elevated blood pressure, safety concerns for living situation PLAN: Disposition: Admit MEDICAL DECISION MAKING: The patient is a 72-year-old woman with a past medical history of schizoaffective disorder/chronic mental illness, hypertension, COPD, tobacco abuse, history of drug abuse, medical noncompliance who presents to the emergency department via EMS for evaluation after EMS was called to their home for the second time today where on their initial visit the patient refused transport and dismissed them but then called again complaining of shortness of breath and was noted to be disorganized and living in poor conditions where electricity in her home had been nonfunctioning. Per review of her record this has been ongoing since her visit to this emergency department on 03/18 where a plan had been arranged to coordinate with the office of aging to ensure her electricity was reinstated. The details of the failure of this plan is not clear at this time as there is no available office of aging airport representative after hours. CM also did attempt to contact the patient's daughter who has been involved but were unsuccessful. On my evaluation the patient is anxious/restless appearing but no acute distress, afebrile with blood pressure initially 09/10[birth year]1929/190s and heart rate in the 90s and vital signs otherwise stable. She appears disorganized with flight of ideas and pressured speech. She perseverates on "something being wrong and wanting help". However when attempting to have blood work done an IV placed the patient adamantly refusing this to nursing staff. Upon my discussion with the patient she did agree to at least have blood work obtained but did not want a IV placed. She further perseverates that she needs help for her blood pressure and how she feels but then perseverates on "no one can fix it anyway". Patient denies active thoughts of SI. EKG without overt acute ischemia. CXR negative for acute cardiopulmonary process. WBC, H/H within normal limits. Platelets 430, nonspecific. Chemistry without metabolic acidosis. Electrolytes LFTs without significant abnormality. High- sensitivity troponin 6.5, within normal limits. Lipase not elevated. TSH within normal limits. UA without evidence of infection with epithelial cells present. Drug screen was negative. Medical alcohol was undetectable. Upon reevaluation patient was more comfortable appearing with blood pressure improved to the 140s/80s following 50 mg of oral hydralazine. Upon further discussion, the patient acknowledges that her electricity is out and does not f eel she can go home at this time. Her ability to fully consent for medical decisions is questionable as she does not seem able to explain in any substantive way in her own words medical concerns with risks and benefits and alternatives of treatment. Nonetheless, the patient ultimately did agree with plan for admission for further management where her blood pressure can be monitored/controlled and safety concerns regarding her living situation be addressed through the office of aging. Case was discussed with Dr. Delvalle, [facility] hospitalist, who will evaluate the patient for admission. Triage Nursing notes reviewed and agree them. Prior/outside medical records reviewed Vital Signs: reviewed Differential diagnosis: Mood disorder, infection, hypoglycemia, electrolyte abnormalities, cardiac sources, intracerebral event, toxicologic, trauma, neurologic, as well as other pathologies. ER treatment provided: See below. Diagnostics interpreted by me: ECG: Normal sinus rhythm, 100 bpm, no ectopy, no overt ST elevation or depression, QTc 464, QRS 68. Cardiac Monitoring: An order for continuous cardiac monitoring was placed and demonstrated Normal sinus rhythm, 100 bpm, no ectopy. Laboratory studies: See below Imaging studies: See below Consultation(s): Case was discussed with Dr. Delvalle, [facility] Hospitalist, who will evaluate the patient for admission. HPI: The patient is a 72-year-old woman with a past medical history of schizoaffective disorder/chronic mental illness, hypertension, COPD, tobacco abuse, history of drug abuse, medical noncompliance who presents to the emergency department via EMS for evaluation after EMS was called to their home for the second time today where on their initial visit the patient refused transport and dismissed them but then called again complaining of shortness of breath and was noted to be disorganized and living in poor conditions where electricity in her home had been nonfunctioning. Per review of her record this has been ongoing since her visit to this emergency department on 03/18 where a plan had been arranged to coordinate with the office of aging to ensure her electricity was reinstated. The details of the failure of this plan is not clear at this time as there is no available office of aging airport representative after hours. CM also did attempt to contact the patient's daughter who has been involved but were unsuccessful. ROS: See above HPI for pertinent positives & negatives. A total of 10 systems reviewed and were otherwise negative. VITALS:See Below PHYSICAL EXAMINATION: GENERAL: Awake, alert, anxious/restless-appearing, unkempt, in no distress HENT: Normocephalic, atraumatic. Oropharynx with dry mucous membranes and otherwise unremarkable. EYES: Normal conjunctiva. Sclera non-icteric. NECK: Supple. No nuchal rigidity. FROM. No JVD. RESPIRATORY: Clear to auscultation. CARDIAC: Regular rate, normal rhythm. Extremities warm and well perfused. Pulses equal. ABDOMEN: Soft, non-distended. No tenderness to palpation. No rebound or guarding. No masses. RECTAL: Deferred. MUSCULOSKELETAL: Chest examination reveals no tenderness. The back is symmetrical on inspection without obvious abnormality. There is no CVA tenderness to palpation. No joint edema. LOWER EXTREMITIES: Calves are equal size bilaterally and non-tender. No edema. No discoloration. NEURO: Normal sensorium. No sensory or motor deficits noted. SKIN: No rash or jaundice noted. Janak Sweeney MD Past Med/Surg History Medical History (Updated 04/04/23 @ 04:18 by Janak Sweeney MD) COPD (chronic obstructive pulmonary disease) Cystic mass of pancreas DVT (deep venous thrombosis) H/O drug abuse High blood pressure Hypertension Hypertensive urgency Posttraumatic stress disorder (01/14/13) Schizoaffective disorder (01/22/12) Tobacco abuse Surgical History History of cystoscopy History of inferior vena caval filter placement Family History Father Myocardial infarction, Onset Age: 66 Diabetes Mother Stroke Colorectal cancer Other Family history non-contributory Social History Smoking Status: Current every day smoker Tobacco Type: Cigarettes Cigarettes Per Day: 1.5 PPD; Second Hand Exposure: No; Do You Dip or Chew Tobacco: No; Hx Alcohol Use: No Hx Substance Use: No Preferred Language: Pashto Communication Ability: Effective Communication Ability Comment: needs frequent redirection to stay on task Visual Impairment: No Limitations Hearing Ability: Normal Photographic Processor Required: No Beliefs That Will Affect Care: None marital status: Single Current Living Situation: Alone Current Living Situation Comment: Living in apartment in [place] Feels Safe at Home: Declines to Answer Assistive Devices: None Allergies Allergies Allergy/AdvReac Type Severity Reaction Status Date / Time atropine Allergy Severe castillo, hard Verified 04/03/23 17:55 time breathing clonidine Allergy Severe RAISES Verified 04/03/23 17:55 B.P., ANXIOUSNESS diphenhydramine Allergy Severe "I ALMOST Verified 04/03/23 17:55 ." hyoscyamine Allergy Severe castillo, hard Verified 04/03/23 17:55 time breathing labetalol Allergy Severe swelling,loss Verified 04/03/23 17:55 of taste,itch, rash phenobarbital Allergy Severe castillo, hard Verified 04/03/23 17:55 time breathing prednisone Allergy Severe Edema Verified 04/03/23 17:55 face,lips and tongue. scopolamine Allergy Severe castillo, hard Verified 04/03/23 17:55 time breathing enoxaparin Allergy Intermediate RASH Verified 04/03/23 17:55 levofloxacin Allergy Intermediate ARM TURNED Verified 04/03/23 17:55 "FIREY RED" WHEN INFUSED, CLEARED IN A FEW HOURS tramadol Allergy Intermediate blisters Verified 04/03/23 17:55 all over warfarin Allergy Intermediate rash Verified 04/03/23 17:55 chlorpromazine Allergy Mild TOLERATING Verified 04/03/23 17:55 PROLIXIN AT HOME 01/15/08 coumarin Allergy Unknown UNKNOWN Verified 04/03/23 17:55 naproxen Allergy Unknown Abdominal Verified 04/03/23 17:55 Pain Penicillins Allergy Unknown Unknown Verified 04/03/23 17:55 morphine AdvReac Severe SHOCK;TOLERATES Verified 04/03/23 17:55 DEMEROL/PASSED OUT amitriptyline AdvReac Intermediate Nausea/vomi Verified 04/03/23 17:55 timg amlodipine AdvReac Intermediate Hypotension Verified 04/03/23 17:55 aspirin AdvReac Intermediate BLEEDING Verified 04/03/23 17:55 codeine AdvReac Intermediate BP DROPS Verified 04/03/23 17:55 AND PASSES OUT dicyclomine AdvReac Intermediate GI SYMPTOMS Verified 04/03/23 17:55 hydralazine AdvReac Intermediate palpitations Verified 04/03/23 17:55 as per px ibuprofen AdvReac Intermediate BLEEDING/ED Verified 04/03/23 17:55 ELLIOT lisinopril AdvReac Intermediate COUGH Verified 04/03/23 17:55 nitrofurantoin AdvReac Intermediate hallucinati Verified 04/03/23 17:55 ng Home Meds Home Medications Medication Instructions Recorded Confirmed aspirin 81 mg chewable tablet 81 mg PO DAILY 06/30/19 04/03/23 (Aspirin Childrens) metoprolol tartrate 50 mg tablet 50 mg PO BID PRN PER PT " NEEDED 10/05/19 04/03/23 FOR B/P". Chamomile Tea 1 dose PO DIRECTED 04/03/23 04/03/23 Fennel Liquid 1 dose PO DIRECTED 04/03/23 04/03/23 catnip 1 ea miscellaneous DIRECTED 04/03/23 04/03/23 Results & Data (ED) Vital Signs Vital Signs - 24 hr 04/03/23 17:50 04/03/23 17:55 04/03/23 18:01 Temperature 36.6 C Temperature Source Oral Pulse Rate 93 H 91 H Pulse Rate [Apical] 102 H Pulse Rate from SpO2 Sensor Pulse Rhythm Regular Pulse Rhythm [Apical] Regular Pulse Strength Normal Pulse Strength [Apical] Normal Respiratory Rate 16 20 Respiratory Effort / Characteristics Non-Labored Non-Labored Respiratory Depth Normal Normal Respiratory Pattern Regular Regular Blood Pressure 237/193 H Blood Pressure [Right Arm] 237/139 H Blood Pressure Mean 207 Blood Pressure Mean [Right Arm] 171 Pulse Oximetry 99 98 Oxygen Delivery Method Room Air Room Air Sepsis Recent Fever Within 48 Hours No Sepsis New/Unexplained Change in Mental Status N/A Sepsis Action Taken by Nursing No Action Required 04/03/23 19:22 04/03/23 18:02 04/03/23 18:10 Temperature Temperature Source Pulse Rate 90 91 H Pulse Rate [Apical] Pulse Rate from SpO2 Sensor 90 90 Pulse Rhythm Pulse Rhythm [Apical] Pulse Strength Pulse Strength [Apical] Respiratory Rate 17 15 Respiratory Effort / Characteristics Respiratory Depth Respiratory Pattern Blood Pressure Blood Pressure [Right Arm] Blood Pressure Mean Blood Pressure Mean [Right Arm] Pulse Oximetry 96 99 96 Oxygen Delivery Method Room Air Sepsis Recent Fever Within 48 Hours Sepsis New/Unexplained Change in Mental Status Sepsis Action Taken by Nursing 04/03/23 18:29 04/03/23 18:30 04/03/23 18:40 Temperature Temperature Source Pulse Rate 87 87 91 H Pulse Rate [Apical] Pulse Rate from SpO2 Sensor Pulse Rhythm Pulse Rhythm [Apical] Pulse Strength Pulse Strength [Apical] Respiratory Rate 20 20 10 L Respiratory Effort / Characteristics Respiratory Depth Respiratory Pattern Blood Pressure Blood Pressure [Right Arm] Blood Pressure Mean Blood Pressure Mean [Right Arm] Pulse Oximetry Oxygen Delivery Method Sepsis Recent Fever Within 48 Hours Sepsis New/Unexplained Change in Mental Status Sepsis Action Taken by Nursing 04/03/23 18:50 04/03/23 19:00 04/03/23 19:10 Temperature Temperature Source Pulse Rate 83 81 80 Pulse Rate [Apical] Pulse Rate from SpO2 Sensor Pulse Rhythm Pulse Rhythm [Apical] Pulse Strength Pulse Strength [Apical] Respiratory Rate 16 15 21 Respiratory Effort / Characteristics Respiratory Depth Respiratory Pattern Blood Pressure Blood Pressure [Right Arm] Blood Pressure Mean Blood Pressure Mean [Right Arm] Pulse Oximetry Oxygen Delivery Method Sepsis Recent Fever Within 48 Hours Sepsis New/Unexplained Change in Mental Status Sepsis Action Taken by Nursing 04/03/23 19:34 04/03/23 19:40 04/03/23 19:50 Temperature Temperature Source Pulse Rate 81 85 81 Pulse Rate [Apical] Pulse Rate from SpO2 Sensor Pulse Rhythm Pulse Rhythm [Apical] Pulse Strength Pulse Strength [Apical] Respiratory Rate 14 27 H 13 Respiratory Effort / Characteristics Respiratory Depth Respiratory Pattern Blood Pressure Blood Pressure [Right Arm] Blood Pressure Mean Blood Pressure Mean [Right Arm] Pulse Oximetry Oxygen Delivery Method Sepsis Recent Fever Within 48 Hours Sepsis New/Unexplained Change in Mental Status Sepsis Action Taken by Nursing 04/03/23 20:00 04/03/23 20:10 04/03/23 20:20 Temperature Temperature Source Pulse Rate 78 73 76 Pulse Rate [Apical] Pulse Rate from SpO2 Sensor Pulse Rhythm Pulse Rhythm [Apical] Pulse Strength Pulse Strength [Apical] Respiratory Rate 16 13 11 L Respiratory Effort / Characteristics Respiratory Depth Respiratory Pattern Blood Pressure Blood Pressure [Right Arm] Blood Pressure Mean Blood Pressure Mean [Right Arm] Pulse Oximetry Oxygen Delivery Method Sepsis Recent Fever Within 48 Hours Sepsis New/Unexplained Change in Mental Status Sepsis Action Taken by Nursing 04/03/23 20:30 04/03/23 20:35 04/03/23 20:35 Temperature Temperature Source Pulse Rate 80 75 Pulse Rate [Apical] Pulse Rate from SpO2 Sensor 76 Pulse Rhythm Pulse Rhythm [Apical] Pulse Strength Pulse Strength [Apical] Respiratory Rate 13 17 Respiratory Effort / Characteristics Respiratory Depth Respiratory Pattern Blood Pressure 217/113 H Blood Pressure [Right Arm] Blood Pressure Mean 147 Blood Pressure Mean [Right Arm] Pulse Oximetry 99 Oxygen Delivery Method Sepsis Recent Fever Within 48 Hours Sepsis New/Unexplained Change in Mental Status Sepsis Action Taken by Nursing 04/03/23 20:40 04/03/23 20:50 04/03/23 21:00 Temperature Temperature Source Pulse Rate 75 71 87 Pulse Rate [Apical] Pulse Rate from SpO2 Sensor 75 72 87 Pulse Rhythm Pulse Rhythm [Apical] Pulse Strength Pulse Strength [Apical] Respiratory Rate 14 19 22 Respiratory Effort / Characteristics Respiratory Depth Respiratory Pattern Blood Pressure Blood Pressure [Right Arm] Blood Pressure Mean Blood Pressure Mean [Right Arm] Pulse Oximetry 98 96 99 Oxygen Delivery Method Sepsis Recent Fever Within 48 Hours Sepsis New/Unexplained Change in Mental Status Sepsis Action Taken by Nursing 04/03/23 21:10 04/03/23 21:20 04/03/23 21:30 Temperature Temperature Source Pulse Rate 78 81 86 Pulse Rate [Apical] Pulse Rate from SpO2 Sensor 78 81 85 Pulse Rhythm Pulse Rhythm [Apical] Pulse Strength Pulse Strength [Apical] Respiratory Rate 17 17 25 H Respiratory Effort / Characteristics Respiratory Depth Respiratory Pattern Blood Pressure Blood Pressure [Right Arm] Blood Pressure Mean Blood Pressure Mean [Right Arm] Pulse Oximetry 97 98 99 Oxygen Delivery Method Sepsis Recent Fever Within 48 Hours Sepsis New/Unexplained Change in Mental Status Sepsis Action Taken by Nursing 04/03/23 21:40 04/03/23 21:44 04/03/23 21:44 Temperature Temperature Source Pulse Rate 83 86 Pulse Rate [Apical] Pulse Rate from SpO2 Sensor 83 85 Pulse Rhythm Pulse Rhythm [Apical] Pulse Strength Pulse Strength [Apical] Respiratory Rate 15 14 Respiratory Effort / Characteristics Respiratory Depth Respiratory Pattern Blood Pressure 141/84 H Blood Pressure [Right Arm] Blood Pressure Mean 103 Blood Pressure Mean [Right Arm] Pulse Oximetry 97 97 Oxygen Delivery Method Sepsis Recent Fever Within 48 Hours Sepsis New/Unexplained Change in Mental Status Sepsis Action Taken by Nursing 04/03/23 22:40 04/03/23 22:17 04/03/23 22:20 Temperature Temperature Source Pulse Rate 83 89 92 H Pulse Rate [Apical] Pulse Rate from SpO2 Sensor Pulse Rhythm Pulse Rhythm [Apical] Pulse Strength Pulse Strength [Apical] Respiratory Rate 6 L 15 Respiratory Effort / Characteristics Respiratory Depth Respiratory Pattern Blood Pressure Blood Pressure [Right Arm] Blood Pressure Mean Blood Pressure Mean [Right Arm] Pulse Oximetry Oxygen Delivery Method Sepsis Recent Fever Within 48 Hours Sepsis New/Unexplained Change in Mental Status Sepsis Action Taken by Nursing 04/03/23 22:30 04/03/23 22:40 04/03/23 22:50 Temperature Temperature Source Pulse Rate 89 83 82 Pulse Rate [Apical] Pulse Rate from SpO2 Sensor Pulse Rhythm Pulse Rhythm [Apical] Pulse Strength Pulse Strength [Apical] Respiratory Rate 15 22 15 Respiratory Effort / Characteristics Respiratory Depth Respiratory Pattern Blood Pressure Blood Pressure [Right Arm] Blood Pressure Mean Blood Pressure Mean [Right Arm] Pulse Oximetry Oxygen Delivery Method Sepsis Recent Fever Within 48 Hours Sepsis New/Unexplained Change in Mental Status Sepsis Action Taken by Nursing 04/03/23 23:00 04/03/23 23:10 04/03/23 23:20 Temperature Temperature Source Pulse Rate 80 84 81 Pulse Rate [Apical] Pulse Rate from SpO2 Sensor Pulse Rhythm Pulse Rhythm [Apical] Pulse Strength Pulse Strength [Apical] Respiratory Rate 18 23 16 Respiratory Effort / Characteristics Respiratory Depth Respiratory Pattern Blood Pressure Blood Pressure [Right Arm] Blood Pressure Mean Blood Pressure Mean [Right Arm] Pulse Oximetry Oxygen Delivery Method Sepsis Recent Fever Within 48 Hours Sepsis New/Unexplained Change in Mental Status Sepsis Action Taken by Nursing 04/03/23 23:30 04/03/23 23:40 04/03/23 23:50 Temperature Temperature Source Pulse Rate 86 82 78 Pulse Rate [Apical] Pulse Rate from SpO2 Sensor Pulse Rhythm Pulse Rhythm [Apical] Pulse Strength Pulse Strength [Apical] Respiratory Rate 13 14 13 Respiratory Effort / Characteristics Respiratory Depth Respiratory Pattern Blood Pressure Blood Pressure [Right Arm] Blood Pressure Mean Blood Pressure Mean [Right Arm] Pulse Oximetry Oxygen Delivery Method Sepsis Recent Fever Within 48 Hours Sepsis New/Unexplained Change in Mental Status Sepsis Action Taken by Nursing 04/04/23 02:38 04/04/23 00:00 04/04/23 00:10 Temperature Temperature Source Pulse Rate 97 H 87 85 Pulse Rate [Apical] Pulse Rate from SpO2 Sensor Pulse Rhythm Pulse Rhythm [Apical] Pulse Strength Pulse Strength [Apical] Respiratory Rate 23 21 Respiratory Effort / Characteristics Respiratory Depth Respiratory Pattern Blood Pressure Blood Pressure [Right Arm] Blood Pressure Mean Blood Pressure Mean [Right Arm] Pulse Oximetry Oxygen Delivery Method Sepsis Recent Fever Within 48 Hours Sepsis New/Unexplained Change in Mental Status Sepsis Action Taken by Nursing 04/04/23 00:20 04/04/23 00:30 Temperature Temperature Source Pulse Rate 74 76 Pulse Rate [Apical] Pulse Rate from SpO2 Sensor Pulse Rhythm Pulse Rhythm [Apical] Pulse Strength Pulse Strength [Apical] Respiratory Rate 14 16 Respiratory Effort / Characteristics Respiratory Depth Respiratory Pattern Blood Pressure Blood Pressure [Right Arm] Blood Pressure Mean Blood Pressure Mean [Right Arm] Pulse Oximetry Oxygen Delivery Method Sepsis Recent Fever Within 48 Hours Sepsis New/Unexplained Change in Mental Status Sepsis Action Taken by Nursing Laboratory Data 04/03/23 20:51 04/03/23 22:01 Lab Results 04/03/23 04/03/23 04/03/23 Range/Units 18:29 18:33 20:51 WBC 8.23 (4.8-10.8) K/ul RBC 4.88 (4.20-5.40) M/uL Hgb 15.5 (12.0-16.0) g/dl Hct 43.5 (37.0-47.0) % MCV 89.1 (80.0-100.0) fL MCH 31.8 (25.0-34.0) pg MCHC 35.6 (32.0-36.0) g/dL RDW Std Deviation 40.6 (36.4-46.3) fL RDW Coeff of Blas 12.3 (11.5-14.5) % Plt Count 430 H (130-400) K/uL MPV 9.2 L (9.4-12.4) fL Immature Gran % (Auto) 0.2 % Neut % (Auto) 56.7 % Lymph % (Auto) 32.6 % [place] % (Auto) 7.2 % Eos % (Auto) 2.6 % Baso % (Auto) 0.7 % Neut # (Auto) 4.67 (1.40-6.50) K/uL Lymph # (Auto) 2.68 (1.20-3.40) K/uL [place] # (Auto) 0.59 (0.11-0.59) K/uL Eos # (Auto) 0.21 (0.00-0.50) K/uL Baso # (Auto) 0.06 (0.00-0.20) K/uL Immature Gran # (Auto) 0.02 (0.01-0.20) K/uL Sodium (136-145) mmol/L Potassium Chloride (98-107) mmol/L Carbon Dioxide (21-32) mmol/L Anion Gap (3-11) BUN (6-23) mg/dl Creatinine (0.6-1.2) mg/dl Est Cr Clr Drug Dosing Est GFR ( Amer) ml/min Est GFR (Non-Af Amer) ml/min BUN/Creatinine Ratio (10-20) Glucose (70-99(Fasting)) mg/dl Calcium (8.6-10.3) mg/dl Phosphorus (2.5-4.9) mg/dl Magnesium (1.7-2.4) mg/dl Total Bilirubin (0.2-1.0) mg/dl AST ALT (7-52) U/L Alkaline Phosphatase (34-104) U/L Troponin I High Sens (0-14) pg/ml Total Protein (6.0-8.3) gm/dl Albumin (3.4-5.0) gm/dl Globulin (2.5-4.0) gm/dl Albumin/Globulin Ratio (0.9-2) Lipase (11-82) U/L TSH (0.300-4.500) uIu/ml Urine Color Yellow Urine Appearance Clear (Clear) Urine pH 7.5 (4.5-7.5) Ur Specific Momence 1.003 (1.000-1.030) Urine Protein Negative (Negative) Urine Glucose (UA) Negative (Negative) Urine Ketones Negative (Negative) Urine Blood Negative (Negative) Urine Nitrite Negative (Negative) Urine Bilirubin Negative (Negative) Urine Urobilinogen Negative (Negative) Ur Leukocyte Esterase Trace H (Negative) Urine WBC (Auto) 1-5 (0-5) /hpf Urine RBC (Auto) 0-4 (0-4) /hpf U Hyaline Cast (Auto) 0 (0-5) /lpf U Epithel Cells (Auto) >30 H (0-5) /lpf Urine Bacteria (Auto) Negative (Negative) Salicylates (3.0-30) mg/dl Urine Opiates Screen Neg (Neg) Ur Methadone, Qual Neg (Neg) Acetaminophen (10-30) ug/ml Urine Barbiturates Neg (Neg) Ur Phencyclidine (PCP) Neg (Neg) U Amphetamin/Meth Scrn Neg (Neg) MDMA (Ecstasy) Screen Neg (Neg) U Benzodiazepines Scrn Neg (Neg) Ur Cocaine Metabolite Neg (Neg) U Marijuana (THC) Screen Neg (Neg) Ethyl Alcohol mg/dL (<10.0) mg/dl SARS-CoV-2, RNA, NAAT (NEGATIVE) 04/03/23 04/03/23 04/03/23 Range/Units 20:51 20:51 20:51 WBC (4.8-10.8) K/ul RBC (4.20-5.40) M/uL Hgb (12.0-16.0) g/dl Hct (37.0-47.0) % MCV (80.0-100.0) fL MCH (25.0-34.0) pg MCHC (32.0-36.0) g/dL RDW Std Deviation (36.4-46.3) fL RDW Coeff of Blas (11.5-14.5) % Plt Count (130-400) K/uL MPV (9.4-12.4) fL Immature Gran % (Auto) % Neut % (Auto) % Lymph % (Auto) % [place] % (Auto) % Eos % (Auto) % Baso % (Auto) % Neut # (Auto) (1.40-6.50) K/uL Lymph # (Auto) (1.20-3.40) K/uL [place] # (Auto) (0.11-0.59) K/uL Eos # (Auto) (0.00-0.50) K/uL Baso # (Auto) (0.00-0.20) K/uL Immature Gran # (Auto) (0.01-0.20) K/uL Sodium 134 L (136-145) mmol/L Potassium TNP Chloride 102 (98-107) mmol/L Carbon Dioxide 23 (21-32) mmol/L Anion Gap 9 (3-11) BUN 3 L (6-23) mg/dl Creatinine 0.60 (0.6-1.2) mg/dl Est Cr Clr Drug Dosing Not Reportable Est GFR ( Amer) 107.0 ml/min Est GFR (Non-Af Amer) 92.4 ml/min BUN/Creatinine Ratio 5.0 L (10-20) Glucose 97 (70-99(Fasting)) mg/dl Calcium 10.1 (8.6-10.3) mg/dl Phosphorus 3.6 (2.5-4.9) mg/dl Magnesium 2.1 (1.7-2.4) mg/dl Total Bilirubin 0.6 (0.2-1.0) mg/dl AST TNP ALT 13 (7-52) U/L Alkaline Phosphatase 74 (34-104) U/L Troponin I High Sens 6.5 (0-14) pg/ml Total Protein 7.2 (6.0-8.3) gm/dl Albumin 4.8 (3.4-5.0) gm/dl Globulin 2.4 L (2.5-4.0) gm/dl Albumin/Globulin Ratio 2.0 (0.9-2) Lipase 33 (11-82) U/L TSH 0.455 (0.300-4.500) uIu/ml Urine Color Urine Appearance (Clear) Urine pH (4.5-7.5) Ur Specific Momence (1.000-1.030) Urine Protein (Negative) Urine Glucose (UA) (Negative) Urine Ketones (Negative) Urine Blood (Negative) Urine Nitrite (Negative) Urine Bilirubin (Negative) Urine Urobilinogen (Negative) Ur Leukocyte Esterase (Negative) Urine WBC (Auto) (0-5) /hpf Urine RBC (Auto) (0-4) /hpf U Hyaline Cast (Auto) (0-5) /lpf U Epithel Cells (Auto) (0-5) /lpf Urine Bacteria (Auto) (Negative) Salicylates (3.0-30) mg/dl Urine Opiates Screen (Neg) Ur Methadone, Qual (Neg) Acetaminophen (10-30) ug/ml Urine Barbiturates (Neg) Ur Phencyclidine (PCP) (Neg) U Amphetamin/Meth Scrn (Neg) MDMA (Ecstasy) Screen (Neg) U Benzodiazepines Scrn (Neg) Ur Cocaine Metabolite (Neg) U Marijuana (THC) Screen (Neg) Ethyl Alcohol mg/dL < 10.0 (<10.0) mg/dl SARS-CoV-2, RNA, NAAT (NEGATIVE) 04/03/23 04/03/23 04/04/23 Range/Units 20:51 22:01 02:29 WBC (4.8-10.8) K/ul RBC (4.20-5.40) M/uL Hgb (12.0-16.0) g/dl Hct (37.0-47.0) % MCV (80.0-100.0) fL MCH (25.0-34.0) pg MCHC (32.0-36.0) g/dL RDW Std Deviation (36.4-46.3) fL RDW Coeff of Blas (11.5-14.5) % Plt Count (130-400) K/uL MPV (9.4-12.4) fL Immature Gran % (Auto) % Neut % (Auto) % Lymph % (Auto) % [place] % (Auto) % Eos % (Auto) % Baso % (Auto) % Neut # (Auto) (1.40-6.50) K/uL Lymph # (Auto) (1.20-3.40) K/uL [place] # (Auto) (0.11-0.59) K/uL Eos # (Auto) (0.00-0.50) K/uL Baso # (Auto) (0.00-0.20) K/uL Immature Gran # (Auto) (0.01-0.20) K/uL Sodium (136-145) mmol/L Potassium 3.9 Chloride (98-107) mmol/L Carbon Dioxide (21-32) mmol/L Anion Gap (3-11) BUN (6-23) mg/dl Creatinine (0.6-1.2) mg/dl Est Cr Clr Drug Dosing Est GFR ( Amer) ml/min Est GFR (Non-Af Amer) ml/min BUN/Creatinine Ratio (10-20) Glucose (70-99(Fasting)) mg/dl Calcium (8.6-10.3) mg/dl Phosphorus (2.5-4.9) mg/dl Magnesium (1.7-2.4) mg/dl Total Bilirubin (0.2-1.0) mg/dl AST 16 ALT (7-52) U/L Alkaline Phosphatase (34-104) U/L Troponin I High Sens (0-14) pg/ml Total Protein (6.0-8.3) gm/dl Albumin (3.4-5.0) gm/dl Globulin (2.5-4.0) gm/dl Albumin/Globulin Ratio (0.9-2) Lipase (11-82) U/L TSH (0.300-4.500) uIu/ml Urine Color Urine Appearance (Clear) Urine pH (4.5-7.5) Ur Specific [place] (1.000-1.030) Urine Protein (Negative) Urine Glucose (UA) (Negative) Urine Ketones (Negative) Urine Blood (Negative) Urine Nitrite (Negative) Urine Bilirubin (Negative) Urine Urobilinogen (Negative) Ur Leukocyte Esterase (Negative) Urine WBC (Auto) (0-5) /hpf Urine RBC (Auto) (0-4) /hpf U Hyaline Cast (Auto) (0-5) /lpf U Epithel Cells (Auto) (0-5) /lpf Urine Bacteria (Auto) (Negative) Salicylates < 3.0 L (3.0-30) mg/dl Urine Opiates Screen (Neg) Ur Methadone, Qual (Neg) Acetaminophen < 3 L (10-30) ug/ml Urine Barbiturates (Neg) Ur Phencyclidine (PCP) (Neg) U Amphetamin/Meth Scrn (Neg) MDMA (Ecstasy) Screen (Neg) U Benzodiazepines Scrn (Neg) Ur Cocaine Metabolite (Neg) U Marijuana (THC) Screen (Neg) Ethyl Alcohol mg/dL (<10.0) mg/dl SARS-CoV-2, RNA, NAAT NEGATIVE (NEGATIVE) Administered Medications Discontinued Medications Hydralazine HCl (Hydralazine Hcl 25 Mg Tab) 50 mg PO NOW STA Stop: 04/03/23 20:53 Last Admin: 04/03/23 20:58 Dose: 50 mg Documented By: ACC Sodium Chloride (Nss) 500 mls @ 999 mls/hr IV .Q31M ONE Stop: 04/03/23 19:53 Last Admin: 04/03/23 20:56 Dose: Not Given Documented By: ACC Lorazepam (Lorazepam 1 Mg Tab) 0.5 mg SL NOW STA Stop: 04/03/23 19:24 Last Admin: 04/03/23 19:32 Dose: 0.5 mg Documented By: ACC Imaging Data Radiologist's Impression: Chest X-Ray 04/03/23 19:22 SINGLE VIEW CHEST CLINICAL HISTORY: Atypical chest pain. FINDINGS: An AP, portable, upright chest radiograph is compared to study dated 02/20/2021 and correlated with chest CT dated 03/01/2021. The cardiomediastinal silhouette is unremarkable noting atherosclerotic calcification of the thoracic aorta. Emphysema and chronic interstitial thickening is similar to previous. There is mild bibasilar scarring/atelectasis. The lungs and pleural spaces are otherwise clear. No pneumothorax is seen. The skeletal structures are osteopenic. The bony thorax is grossly intact. IVC filters are seen below the right hemidiaphragm. IMPRESSION: Emphysematous change with no acute cardiopulmonary abnormality identified. ACT 112: Negative or not required by law. Electronically signed by: Noel Ford M.D. 04/03/2023 9:03 PM Discharge Plan Visit Data Chief Complaint: Illness ED Provider: Janak Sweeney Discharge Problem: Hypertensive urgency, Medical non-compliance, Chronic mental illness, Schizoaffective disorder, Unsatisfactory living conditions Forms Stand Alone Forms: My [facility] Space Pencil Prescriptions Prescriptions: No Action aspirin [Aspirin Childrens] 81 mg tablet,chewable 81 mg PO DAILY Rx Instructions: PER PT "PUT IT UNDER MY TONGUE AND LET IT DISSOLVE, IRRITATES MY STOMACH IF SWALLOWED". PER PT "DOESN'T TAKE REGULARLY". metoprolol tartrate 50 mg Tablet 50 mg PO BID PRN (Reason: PER PT " NEEDED FOR B/P".) Rx Instructions: PER PT "BEEN OUT OF MED FOR A WHILE" Catnip Herb Misc 1 ea MISCELLANEOUS DIRECTED Rx Instructions: PER PT "LIQUID BECAUSE I CAN'T SWALLOW". Chamomile Tea 1 dose PO DIRECTED Fennel Liquid 1 dose PO DIRECTED Referrals Referrals: Tim Moran PA-C [Primary Care Provider] -
[2023-04-03] MEDS ORDERED: SODIUM CHLORIDE 0.9% 500 ML IV ONE (19:23)
[2023-04-03] MEDS ORDERED: LORazepam 1 MG TAB SL STA (19:23)
[2023-04-03 19:29] LABS: Appearance Urine Clear (Clear); Bacteria Urine Automated Negative (Negative); Bilirubin Urine Negative (Negative); Blood Urine Negative (Negative); Cast Urine Automated 0 /lpf (0-5); Color Urine Yellow; Epithelial Cell Urine Auto >30 /lpf (0-5); Glucose Urine UA Negative (Negative); Ketones Urine Negative (Negative); Leukocyte Esterase Urine Trace (Negative); Nitrite Urine Negative (Negative); Protein Urine Negative (Negative); RBC Urine Automated 0-4 /hpf (0-4); Specific Gravity Urine 1.003 (1.000-1.030); Urobilinogen Urine Negative (Negative); pH Urine 7.5 (4.5-7.5)
[2023-04-03 20:10] LABS: Amphetamines+Metham, Urine Neg (Neg); Barbiturates, Urine Neg (Neg); Benzodiazepine, Urine Neg (Neg); Cocaine, Urine Neg (Neg); MDMA (Ecstacy), Urine Neg (Neg); Methadone, Urine Neg (Neg); Opiate, Urine Neg (Neg); Phencyclidine, Urine Neg (Neg)
[2023-04-03] MEDS ORDERED: hydrALAZINE HCL 25 MG TAB PO STA (20:52)
--- NOTE | 2023-04-03 21:04 | XRay Report ---
SINGLE VIEW CHEST CLINICAL HISTORY: Atypical chest pain. FINDINGS: An AP, portable, upright chest radiograph is compared to study dated 02/20/2021 and correlat ed with chest CT dated 03/01/2021. The cardiomediastinal silhouette is unremarkable noting atheroscler otic calcification of the thoracic aorta. Emphysema and chronic interstitial thickening is similar to previous. There is mild bibasilar scarring/atelectasis. The lungs and pleural spaces are otherwise c lear. No pneumothorax is seen. The skeletal structures are osteopenic. The bony thorax is grossly int act. IVC filters are seen below the right hemidiaphragm. IMPRESSION: Emphysematous change with no acute cardiopulmonary abnormality identified. ACT 112: Negative or not required by law. Electronically signed by: Noel Ford M.D. 04/03/2023 9:03 PM
[2023-04-03 21:11] LABS: Basophils # (auto) 0.06 K/uL (0.00-0.20); Basophils % (auto) 0.7 %; Eosinophils # (auto) 0.21 K/uL (0.00-0.50); Eosinophils % (auto) 2.6 %; Hematocrit (blood only) 43.5 % (37.0-47.0); Hemoglobin 15.5 g/dl (12.0-16.0); Immature Granulocytes # (auto) 0.02 K/uL (0.01-0.20); Immature Granulocytes % (auto) 0.2 %; Lymphocytes # (auto) 2.68 K/uL (1.20-3.40); Lymphocytes % (auto) 32.6 %; Mean Corpuscular Hemoglobin 31.8 pg (25.0-34.0); Mean Corpuscular Hgb Conc 35.6 g/dL (32.0-36.0); Mean Corpuscular Volume 89.1 fL (80.0-100.0); Mean Platelet Volume 9.2 fL (9.4-12.4); Monocytes # (auto) 0.59 K/uL (0.11-0.59); Monocytes % (auto) 7.2 %; Neutrophils # (auto) 4.67 K/uL (1.40-6.50); Neutrophils % (auto) 56.7 %; Platelet Count 430 K/uL (130-400); RDW Coefficient of Variation 12.3 % (11.5-14.5); RDW Standard Deviation 40.6 fL (36.4-46.3); Red Blood Count 4.88 M/uL (4.20-5.40); White Blood Count 8.23 K/ul (4.8-10.8)
[2023-04-03 21:29] LABS: Alanine Aminotransferase 13 U/L (7-52); Albumin Level 4.8 gm/dl (3.4-5.0); Alkaline Phosphatase 74 U/L (34-104); Anion Gap 9 (3-11); Bilirubin,Total 0.6 mg/dl (0.2-1.0); Blood Urea Nitrogen 3 mg/dl (6-23); Calcium 10.1 mg/dl (8.6-10.3); Carbon Dioxide 23 mmol/L (21-32); Chloride 102 mmol/L (98-107); Est GFR (Non-African American) 92.4 ml/min; Globulin 2.4 gm/dl (2.5-4.0); Glucose 97 mg/dl (70-99(Fasting)); Lipase 33 U/L (11-82); Magnesium 2.1 mg/dl (1.7-2.4); Phosphorus 3.6 mg/dl (2.5-4.9); Sodium 134 mmol/L (136-145); Total Protein 7.2 gm/dl (6.0-8.3)
[2023-04-03 21:31] LABS: Acetaminophen < 3 ug/ml (10-30); Salicylate < 3.0 mg/dl (3.0-30)
[2023-04-03 21:35] LABS: Troponin I High Sensitivity 6.5 pg/ml (0-14)
[2023-04-03 22:44] LABS: Potassium 3.9 mmol/L (3.5-5.1)
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
[2023-04-04] MEDS ORDERED: NITROGLYCERIN SL 0.4 MG/TAB TAB SL PRN (07:27)
[2023-04-04] MEDS ORDERED: ACETAMINOPHEN 325 MG TAB PO PRN (07:27)
[2023-04-04] MEDS ORDERED: POLYETHYLENE (MIRALAX) 17 GM PACK PO PRN (07:27)
[2023-04-04] MEDS: METOPROLOL TARTRATE 50 MG TAB PO SCH ×2 (09:08→22:14)
[2023-04-04] MEDS: ASPIRIN 81 MG ECTAB PO SCH (09:09)
--- NOTE | 2023-04-04 10:53 | Psychiatric Consultation ---
Date of Consultation April 04, 2023 Impression / Recommendations Impression THIS NOTE IS INCOMPLETE AND IN-PROGRESS, AND THEREFORE THE CONTENTS ARE SUBJECT TO CHANGE. UNTIL IT IS SIGNED DO NOT RELY ON IT THE BASIS FOR ANY MEDICAL DECISION- MAKING. 72 y/o F with history of schizoaffective disorder and opioid and benzodiazepine use disorders who appears to be presenting in a manner that has been repetitive over time, of reporting dyspnea and initially seeking medical attention then declining treatment as well as reflecting longstanding personal neglect. She is unwilling to consider using psychiatric medication at this time. Pt is certainly making poor decisions that do not serve her well over the halfway, but I find no psychotic basis for that. She has a basic understanding that she has heart and breathing problems and that clinicians have specific recomm endations for treatment but she's simply not interested in that. There may be a degree to which she hopes to be offered preferred medications such as benzodiazepines or opioids, but that's an inference with weak evidence. Although she doesn't seem to be making very good decisions, in my opinion she has the capacity to make rational (in the sense of non psychotic and employing a process of ratiocination) and informed (in that she bases those decisions on information that is pertinent to the issue at hand) decisions. (1) Schizoaffective disorder, bipolar type: (2) Opioid use disorder: (3) Sedative, hypnotic or anxiolytic use disorder, severe, dependence: Plan It seems pretty clear that Ms. Miller is not at all likely to accept psychiatric medication. I fear that pushing this issue may well drive her to reject appropriate and needed medical treatment. Psych History Identifying Data ROBBY MILLER is a 72-year-old F with a history of schizoaffective disorder bipolar type, opioid use disorder, and benzodiazepine use disorder, admitted on 04/04/2023 for hypertension. Consult is by the hospitalist service for "hx of psychiatric illness. not on meds". Chief Complaint "Oh, no - here we go". History of Present Illness As part of a thorough review of the available medical records, I have read and confirmed the following note by the ED physician: "The patient is a 72-year-old woman with a past medical history of schizoaffective disorder/chronic mental illness, hypertension, COPD, tobacco abuse, history of drug abuse, medical noncompliance who presents to the emergency department via EMS for evaluation after EMS was called to their home for the second time today where on their initial visit the patient refused transport and dismissed them but then called again complaining of shortness of breath and was noted to be disorganized and living in poor conditions where electricity in her home had been nonfunctioning. Per review of her record this has been ongoing since her visit to this emergency department on 03/18 where a plan had been arranged to coordinate with the office of aging to ensure her electricity was reinstated. The details of the failure of this plan is not clear at this time as there is no available office of aging delivery representative after hours. CM also did attempt to contact the patient's daughter who has been involved but were unsuccessful. On my evaluation the patient is anxious/restless appearing but no acute distress, afebrile with blood pressure initially 09/10/1929/190s and heart rate in the 90s and vital signs otherwise stable. She appears disorganized with flight of ideas and pressured speech. She perseverates on "something being wrong and wanting help". However when attempting to have blood work done an IV placed the patient adamantly refusing this to nursing staff. Upon my discussion with the patient she did agree to at least have blood work obtained but did not want a IV placed. She further perseverates that she needs help for her blood pressure and how she feels but then perseverates on "no one can fix it anyway". Patient denies active thoughts of SI. EKG without overt acute ischemia. CXR negative for acute cardiopulmonary process. WBC, H/H within normal limits. Platelets 430, nonspecific. Chemistry without metabolic acidosis. Electrolytes LFTs without significant abnormality. High-sensitivity troponin 6.5, within normal limits. Lipase not elevated. TSH within normal limits. UA without evidence of infection with epithelial cells present. Drug screen was negative. Medical alcohol was undetectable. Upon reevaluation patient was more comfortable appearing with blood pressure improved to the 140s/80s following 50 mg of oral hydralazine. Upon further discussion, the patient acknowledges that her electricity is out and does not feel she can go home at this time. Her ability to fully consent for medical decisions is questionable as she does not seem able to explain in any substantive way in her own words medical concerns with risks and benefits and alternatives of treatment. Nonetheless, the patient ultimately did agree with plan for admission for further management where her blood pressure can be monitored/controlled and safety concerns regarding her living situation be addressed through the office of aging." and the following note by the hospitalist: "72-year-old female with past medical significant for hypertension, irritable bowel syndrome, chronic pain disorder, anxiety, medical noncompliance, PTSD, bipolar 1 disorder, ongoing tobacco abuse, history of suicide attempt by Tylenol overdose, schizoaffective disorder, history of DVT many years ago as per patient who lives alone was brought in because of complaints of shortness of breath. Patient was in the ER on March 18 with complaints of anxiety as electricity and air conditioner went off her at home. She was discharged home at that time with office of aging to help restore electricity. Patient again called today EMS for shortness of breath and initially she declined to come to the hospital and again call them second time. EMS noted there was no electricity and poor living conditions and she was brought to the ER. Her blood pressure was high. She refused IV lines and blood work but later agreed for blood work. She was given Ativan and p.o. hydralazine and her blood pressure improved. Currently patient is alert and awake and oriented x3. Says she missed many of her appointments and currently she does not have any medications. Complains of some mild headache and request for coffee. No blurred visions no earache or runny nose or sore throat. Has some cough. Denies any fevers. Has some chest cramps. Says she is always short of breath. No nausea. Has some abdominal discomfort. Normal bowel and bladder movements. Lately she states having some ambulatory dysfunction. Not eating much as per patient. She states she smokes but does not say exactly how much she smokes. Denies any alcohol use. Says she drinks lot of coffee. She does not want any more tests or IV line placed." Review of the medical record reveals previous psychiatric consultations in 10/2017. 02/2019, and 03/2019. Pt. carries diagnosis of schizoaffective disorder, bipolar type, opioid dependence, and benzodiazepine dependence. In the past, pt has been known to alter opioid and benzodiazepine prescriptions. She is reported as never adhering to the treatment plan. She is reported often to complain of symptoms (frequently dyspnea) and present for emergency treatment then decline offered treatment. She has frequently been documented as neglecting her care needs. At the time of the 03/2019 consultation she said she had not taken psychiatric medication for 6 years and declined to consider resuming. Pt was displeased to see me, somewhat sarcastic, wanting know what my seeing her had to do with the reason she's here (which is an entirely appropriate question). She volunteers that she's had negative experiences with psychiatric medications in the past and has no intention of taking any now. She implies that she's felt inappropriately labeled psychiatrically before and seems to disagree that she's ever actually needed psychiatric treatment. Despite her fairly strong wish not to participate in an exam with me, pt is at worse sarcastic and evidences some humor (e.g., referring to typical printed lists of resources given to patients so they can call as "[id number]", though since this had been an in-joke with the nurse who was present, announced that she would spell it backwards then did so). Allergies Allergy/AdvReac Type Severity Reaction Status Date / Time atropine Allergy Severe castillo, hard Verified 04/03/23 17:55 time breathing clonidine Allergy Severe RAISES Verified 04/03/23 17:55 B.P., ANXIOUSNESS diphenhydramine Allergy Severe "I ALMOST Verified 04/03/23 17:55 ." hyoscyamine Allergy Severe castillo, hard Verified 04/03/23 17:55 time breathing labetalol Allergy Severe swelling,loss Verified 04/03/23 17:55 of taste,itch, rash phenobarbital Allergy Severe castillo, hard Verified 04/03/23 17:55 time breathing prednisone Allergy Severe Edema Verified 04/03/23 17:55 face,lips and tongue. scopolamine Allergy Severe castillo, hard Verified 04/03/23 17:55 time breathing enoxaparin Allergy Intermediate RASH Verified 04/03/23 17:55 levofloxacin Allergy Intermediate ARM TURNED Verified 04/03/23 17:55 "FIREY RED" WHEN INFUSED, CLEARED IN A FEW HOURS tramadol Allergy Intermediate blisters Verified 04/03/23 17:55 all over warfarin Allergy Intermediate rash Verified 04/03/23 17:55 chlorpromazine Allergy Mild TOLERATING Verified 04/03/23 17:55 PROLIXIN AT HOME 01/15/08 coumarin Allergy Unknown UNKNOWN Verified 04/03/23 17:55 naproxen Allergy Unknown Abdominal Verified 04/03/23 17:55 Pain Penicillins Allergy Unknown Unknown Verified 04/03/23 17:55 morphine AdvReac Severe SHOCK;TOLERATES Verified 04/03/23 17:55 DEMEROL/PASSED OUT amitriptyline AdvReac Intermediate Nausea/vomi Verified 04/03/23 17:55 timg amlodipine AdvReac Intermediate Hypotension Verified 04/03/23 17:55 aspirin AdvReac Intermediate BLEEDING Verified 04/03/23 17:55 codeine AdvReac Intermediate BP DROPS Verified 04/03/23 17:55 AND PASSES OUT dicyclomine AdvReac Intermediate GI SYMPTOMS Verified 04/03/23 17:55 hydralazine AdvReac Intermediate palpitations Verified 04/03/23 17:55 as per px ibuprofen AdvReac Intermediate BLEEDING/ED Verified 04/03/23 17:55 ELLIOT lisinopril AdvReac Intermediate COUGH Verified 04/03/23 17:55 nitrofurantoin AdvReac Intermediate hallucinati Verified 04/03/23 17:55 ng Home Medications Medication Instructions Recorded Confirmed Type aspirin 81 mg chewable tablet 81 mg PO DAILY 06/30/19 04/03/23 History (Aspirin Childrens) metoprolol tartrate 50 mg tablet 50 mg PO BID PRN PER PT " NEEDED 10/05/19 04/03/23 History FOR B/P". Chamomile Tea 1 dose PO DIRECTED 04/03/23 04/03/23 History Fennel Liquid 1 dose PO DIRECTED 04/03/23 04/03/23 History catnip 1 ea miscellaneous DIRECTED 04/03/23 04/03/23 History Patient History Medical History (Updated 04/04/23 @ 10:46 by Anuel Daily MD) COPD (chronic obstructive pulmonary disease) Cystic mass of pancreas DVT (deep venous thrombosis) H/O drug abuse High blood pressure Hypertension Hypertensive urgency Opioid use disorder Posttraumatic stress disorder (01/14/13) Schizoaffective disorder, bipolar type Sedative, hypnotic or anxiolytic use disorder, severe, dependence benzodiazepines Tobacco abuse Surgical History History of cystoscopy History of inferior vena caval filter placement Family History Father Myocardial infarction, Onset Age: 66 Diabetes Mother Stroke Colorectal cancer Other Family history non-contributory Social History Smoking Status: Current every day smoker Tobacco Type: Cigarettes Cigarettes Per Day: 1.5 PPD; Second Hand Exposure: No; Do You Dip or Chew Tobacco: No; Hx Alcohol Use: No Hx Substance Use: No Preferred Language: Tajik Communication Ability: Effective Communication Ability Comment: needs frequent redirection to stay on task Visual Impairment: No Limitations Hearing Ability: Normal 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 Beliefs That Will Affect Care: None marital status: Single Current Living Situation: Alone Current Living Situation Comment: apartment poor living conditions and no electric Other Information That Helps Us Care for You: No Feels Safe at Home: Declines to Answer Assistive Devices: None Physical Exam Psychiatric: Orientation: alert, oriented to person, oriented to place and oriented to time; + uncooperative Apperance: appropriately dressed and + disheveled Eye Contact: + fair eye contact Motor Behavior: no abnormal motor movements; no psychomotor agitation and no psychomotor retardation Speech: normal rate/rhythm/volume of speech Affect: + irritable affect Mood: + irritable mood Thought Process: + tangential thought process; + thought association not intact Thought Content: reality based without delusions Suicidal Thoughts: denies suicidal thoughts Homicidal Thoughts: denies homicidal thoughts Hallucinations: no auditory hallucinations and no visual hallucinations Cognition: recent memory grossly intact, remote memory grossly intact, attention grossly intact and language grossly intact Estimated Intelligence: average estimated intelligence Insight: + limited insight Judgment: + impaired judgement Vital Signs (Past 24 Hours): Last Vital Signs Temp 36.6 C 04/03/23 17:50 Pulse 83 04/04/23 09:03 Resp 18 04/04/23 09:03 BP 133/97 04/04/23 09:03 Pulse Ox 93 04/04/23 09:21 O2 Del Method Room Air 04/04/23 09:21 Results & Data (PSY) Medications Administered Aspirin (Aspirin 81 Mg Ectab) 81 mg PO DAILY GENARO Stop: 05/04/23 08:59 Last Admin: 04/04/23 09:09 Dose: Not Given Documented By: AM Metoprolol Tartrate (Metoprolol Tartrate 50 Mg Tab) 50 mg PO BID GENARO Stop: 05/04/23 08:59 Last Admin: 04/04/23 09:08 Dose: 50 mg Documented By: AM Coding Level of Care Code 63721 IN/OBS CONSULT LVL 4,60M Diagnoses Schizoaffective disorder, bipolar type F25.0 Opioid use disorder F11.90 Sedative, hypnotic or anxiolytic use disorder, severe, dependence F13.20 Time Spent (min) 66
--- NOTE | 2023-04-04 13:00 | Communication Note ---
Date of Service: April 04, 2023 Pt was seen this AM, using a home comforter. States that she was very cold as she did not have heat at home. BP was controlled at that time, temperature was normal at that time Later in the day got messages that the pt was restless and walking the halls, still refusing to have an IV placed. Ordered PO Ativan. She was also refusing the gambling monitor.
[2023-04-04] MEDS ORDERED: LORazepam 2 MG/1 ML VIAL IV STA (13:40)
[2023-04-04] MEDS ORDERED: LORazepam 2 MG/1 ML VIAL IV PRN (13:41)
[2023-04-04] MEDS ORDERED: LORazepam 0.5 MG TAB PO STA (13:43)
[2023-04-04] MEDS ORDERED: LORazepam 0.5 MG TAB PO PRN (13:44)
[2023-04-05] MEDS: METOPROLOL TARTRATE 50 MG TAB PO SCH (09:26)
[2023-04-05] MEDS: ASPIRIN 81 MG ECTAB PO SCH (09:26)
[2023-04-05 10:06] LABS: Basophils # (auto) 0.05 K/uL (0.00-0.20); Basophils % (auto) 0.7 %; Eosinophils # (auto) 0.41 K/uL (0.00-0.50); Eosinophils % (auto) 6.1 %; Hematocrit (blood only) 39.3 % (37.0-47.0); Hemoglobin 13.8 g/dl (12.0-16.0); Immature Granulocytes # (auto) 0.02 K/uL (0.01-0.20); Immature Granulocytes % (auto) 0.3 %; Lymphocytes # (auto) 2.54 K/uL (1.20-3.40); Mean Corpuscular Hemoglobin 32.2 pg (25.0-34.0); Mean Corpuscular Hgb Conc 35.1 g/dL (32.0-36.0); Mean Corpuscular Volume 91.6 fL (80.0-100.0); Mean Platelet Volume 9.2 fL (9.4-12.4); Monocytes # (auto) 0.49 K/uL (0.11-0.59); Monocytes % (auto) 7.3 %; Neutrophils # (auto) 3.17 K/uL (1.40-6.50); Neutrophils % (auto) 47.6 %; Platelet Count 350 K/uL (130-400); RDW Coefficient of Variation 12.8 % (11.5-14.5); RDW Standard Deviation 42.3 fL (36.4-46.3); Red Blood Count 4.29 M/uL (4.20-5.40); White Blood Count 6.68 K/ul (4.8-10.8)
[2023-04-05 10:37] LABS: Calcium 9.5 mg/dl (8.6-10.3)
[2023-04-05 10:42] LABS: BUN Creatinine Ratio 16.1 (10-20); Creatinine Clr Calc Pharmacy 66.8 ml/min; Est GFR (African American) 105.9 ml/min; Est GFR (Non-African American) 91.4 ml/min
--- NOTE | 2023-04-05 15:15 | Discharge Summary ---
Discharge Summary Date of Service April 05, 2023 Notes For Next Care Provider -Patient adamant for telemedicine visit, voicing this as reason why she failed to renew prescription as visit was "in-person", tried to explain importance of in-person evaluation -Chronic dyspnea, hard to extract duration/progression, consider PFT/stress test on OP basis Medication Changes From Visit -Resumed home metoprolol tartrate 50mg BID, patient declined any other adjustments Admission HPI Per Admitting Provider 72-year-old female with past medical significant for hypertension, irritable bowel syndrome, chronic pain disorder, anxiety, medical noncompliance, PTSD, bipolar 1 disorder, ongoing tobacco abuse, history of suicide attempt by Tylenol overdose, schizoaffective disorder, history of DVT many years ago as per patient who lives alone was brought in because of complaints of shortness of breath. Patient was in the ER on March 18 with complaints of anxiety as electricity and air conditioner went off her at home. She was discharged home at that time with office of aging to help restore electricity. Patient again called today EMS for shortness of breath and initially she declined to come to the hospital and again call them second time. EMS noted there was no electricity and poor living conditions and she was brought to the ER. Her blood pressure was high. She refused IV lines and blood work but later agreed for blood work. She was given Ativan and p.o. hydralazine and her blood pressure improved. Currently patient is alert and awake and oriented x3. Says she missed many of her appointments and currently she does not have any medications. Complains of some mild headache and request for coffee. No blurred visions no earache or runny nose or sore throat. Has some cough. Denies any fevers. Has some chest cramps. Says she is always short of breath. No nausea. Has some abdominal discomfort. Normal bowel and bladder movements. Lately she states having some ambulatory dysfunction. Not eating much as per patient. She states she smokes but does not say exactly how much she smokes. Denies any alcohol use. Says she drinks lot of coffee. She does not want any more tests or IV line placed. Past medical history as mentioned above Past surgical history cystoscopy, EGD with biopsy, IVC filter, tonsillectomy. Social history lives alone. Smokes 1.5 packs a day for 37 years as per [facility]. Currently no alcohol use as per [facility] no drug use. As per [facility] she is on disability and Social Security because of physical and emotional reasons. Family history mother has colon cancer, stroke, high lipids. Father had diabetes bypass wall, blood clot. Sister has anxiety Admission Exam Per Admitting Provider General- Not in distress Head- atraumatic Eyes- PERRL,. ENT- oropharynx clear Neck- supple, no JVD, . Lungs- clear to auscultation , no wheezing or crackles. Heart- regular rate and rhythm; no murmur, no gallop. Abdomen- normal bowel sounds, soft, nontender, no distension. Extremities- no pretibial edema, no erythema seen. Neuro- alert, oriented x 3; PERRL, no facial palsy; no dysarthria; obeys commands, moves extremities. Skin- warm & dry Principal Dx & Hospital Course #1 = Principal Diagnosis (1) Hypertensive urgency: Ms. Damaris Miller is a 72-year-old female with past medical significant for hypertension, irritable bowel syndrome, chronic pain disorder, anxiety, medical noncompliance, PTSD, bipolar 1 disorder, ongoing tobacco abuse, prior suicide attempt by Tylenol overdose, schizoaffective disorder, prior DVT many years ago as per patient who lives alone was brought in because of complaints of dyspnea and found to have hypertensive urgency. Patient's course complicated by unmanaged schizoaffective disorder. Patient demonstrated bouts of agitation and overall refusal for various medical interventions prompting psychiatric consultation. Though patient's behavior and decision making is not congruent with good health outcomes, she demonstrated continued capacity for medical decision making. Case Management worked closely with patient to provide resources for utilities and reported home insecurities. When attempting to discuss issues further with patient, she declined to provide indepth information. Reportedly from patient she is estranged from children and has no other close contacts to assist. When discussing her medications, she states she refused to go into her PCP appointment as it was an in-person visit rather than telemedicine--therefore states that her medications weren't refilled prompting her running out. 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 Transportation was coordinated. Upon discharge, patient verbalized understanding of the consequences of noncompliance with medications and missing medical appointments. #Hypertensive urgency After p.o. hydralazine her blood pressure improved in the ER Refused IV access Continued home metoprolol with better control of blood pressure #Shortness of breath #KEENE #Ongoing tobacco abuse -Informed patient to consider PFTS and OP stress test with PCP -Counseled on cessation, patient seems precontemplative #Chest discomfort, resolved EKG no acute findings Troponin negative We will follow serial enzymes and echocardiogram Monitor med/telemetry #Schizoaffective disorder Current not taking medications Psychiatry evaluated, deemed to have capacity #History of medical noncompliance #Poor living conditions Social service provided available resources #Ambulatory dysfunction Declined PT/OT Dispo home Discharge Exam Constitutional Pressured speech, pleasant this afternoon, verbalizes understanding and repeats instructions Eyes PERRL, conjunctivae normal, anicteric sclerae ENMT partially edentulous Neck trachea midline, no thyromegaly Respiratory normal respiratory effort, lungs clear to auscultation Cardiovascular RRR, no murmur, no edema Gastrointestinal (Abdomen) normal bowel sounds, soft, nontender, no hepatosplenomegaly Musculoskeletal no cyanosis or clubbing, extremities motor strength 5/5 Skin no rashes, warm and dry Neurologic PERRL, EOMI, accommodation nl, no face palsy, no dysarthria Psychiatric Orientation: oriented x 3 Apperance: + disheveled Motor Behavior: steady gait and station Speech: + pressured speech Affect: euthymic affect tangential, but redirectable Updated Medication List Medication Instructions Recorded Confirmed Type aspirin 81 mg chewable tablet 81 mg PO DAILY 06/30/19 04/03/23 History (Aspirin Childrens) Chamomile Tea 1 dose PO DIRECTED 04/03/23 04/03/23 History Fennel Liquid 1 dose PO DIRECTED 04/03/23 04/03/23 History catnip 1 ea miscellaneous DIRECTED 04/03/23 04/03/23 History metoprolol tartrate 50 mg tablet 50 mg PO BID 30 days #60 tabs 04/05/23 Rx Hospital Stay Data Consultations 04/04/23 01:30 ED Decision to Admit Stat 04/04/23 07:27 Consult Psychiatry Routine Diagnostic Imagining Performed Chest X-Ray 04/03/23 19:22 SINGLE VIEW CHEST CLINICAL HISTORY: Atypical chest pain. FINDINGS: An AP, portable, upright chest radiograph is compared to study dated 02/20/2021 and correlated with chest CT dated 03/01/2021. The cardiomediastinal silhouette is unremarkable noting atherosclerotic calcification of the thoracic aorta. Emphysema and chronic interstitial thickening is similar to previous. There is mild bibasilar scarring/atelectasis. The lungs and pleural spaces are otherwise clear. No pneumothorax is seen. The skeletal structures are osteopenic. The bony thorax is grossly intact. IVC filters are seen below the right hemidiaphragm. IMPRESSION: Emphysematous change with no acute cardiopulmonary abnormality identified. ACT 112: Negative or not required by law. Electronically signed by: Noel Ford M.D. 04/03/2023 9:03 PM Discharge Instructions Given to Patient (Per Discharging Provider) You were admitted for high blood pressure. After lowering your pressure with a fast acting medication and starting your home metoprolol, your pressure improved. You will continue to take the following: Metoprolol 50mg twice a day Please continue your home medications that were prescribed by your PCP. Please ensure follow up with your PCP, which may involve in person visit for vital sign measurements. Total Time Total Time Spent Total Time Spent (In Minutes): By CMS guidelines, a determination that the admission or continued stay is not medically necessary has been made by a member of the UR committee and a physician for this hospital stay, therefore a Code 44 will be completed and the Inpatient admission will be changed to outpatient. Time spent evaluating patient, direct bedside care, chart review, placing discharge orders, interpretation of diagnostic studies, discussion with consultants, patient, and family members, as well as other required patient management activities is 50 minutes.
--- NOTE | 2023-04-05 15:40 | Communication Note ---
Date of Service: April 05, 2023 Code 44 attestation: The chart of tyrese Miller 1950 was reviewed. She was appropriately managed in the hospital by the attending and has had psychiatric evaluation. She was sent home with a stable medical state. By CMS guidelines, a determination that the admission or continued stay is not medically necessary has been made by a member of the UR committee and a physician for this hospital stay, therefore a Code 44 will be completed and the Inpatient admission will be changed to outpatient. Dr Kandi Camargo Member UR Committee
--- NOTE | 2023-04-08 08:38 | Electrocardiogram Report ---
Test Reason : Blood Pressure : / mmHG Vent. Rate : 100 BPM Atrial Rate : 100 BPM P-R Int : 162 ms QRS Dur : 068 ms QT Int : 360 ms P-R-T Axes : 053 055 075 degrees QTc Int : 464 ms Normal sinus rhythm Septal infarct , age undetermined Nonspecific ST abnormality Abnormal ECG When compared with ECG of 26-FEB-2022 19:57, Septal infarct is now Present Confirmed by Boom Hendrickson ([id number]) on 04/08/2023 8:38:21 AM Referred By: REFERRED SELF Confirmed By:Boom Hendrickson
--- NOTE | 2023-04-08 14:25 | Electrocardiogram Report ---
Test Reason : Blood Pressure : / mmHG Vent. Rate : 072 BPM Atrial Rate : 072 BPM P-R Int : 146 ms QRS Dur : 072 ms QT Int : 418 ms P-R-T Axes : 078 056 077 degrees QTc Int : 457 ms Normal sinus rhythm Normal ECG When compared with ECG of 03-APR-2023 17:49, Criteria for Septal infarct are no longer Present Confirmed by Boom Hendrickson ([id number]) on 04/08/2023 2:24:51 PM Referred By: REFERRED SELF Confirmed By:Boom Hendrickson
--- NOTE | 2023-04-08 16:04 | Electrocardiogram Report ---
Test Reason : Blood Pressure : / mmHG Vent. Rate : 059 BPM Atrial Rate : 059 BPM P-R Int : 178 ms QRS Dur : 070 ms QT Int : 442 ms P-R-T Axes : 068 041 059 degrees QTc Int : 437 ms Sinus bradycardia Septal infarct , age undetermined Abnormal ECG When compared with ECG of 04-APR-2023 09:07, Septal infarct is now Present Confirmed by Boom Hendrickson ([id number]) on 04/08/2023 4:04:17 PM Referred By: REFERRED SELF Confirmed By:Boom Hendrickson
--- OUTSIDE RECORDS SUMMARY | 2023-04-09 23:52 | External Medical Summary | Summary of Care ---
Author Name Unknown Organization [place] [address] Care Team Providers Care Supervisor Pullet Farm Name Role Phone Unavailable Primary Care Provider Unavailabl e Encounter Details Date Type Department Care Team Description 01/14/2019 Scan Encounter Unspecified Department <No scans attached> Allergies Active Allergy Reactions Severity Noted Date Comments Naproxen Sodium Other (Please comment) Medium 10/19/19 11 Abdominal pains Amitriptyline Nausea/vomiting 03/09/2011 Aspirin 02/23/2008 Internal bleed cramping Warfarin Sodium Rash High 06/13/2009 Bleeding rash Dicyclomine Hcl Other (Please comment) 03/16/20 13 couoldn't move, "made me sick Ibuprofen Edema Other 05/11/2010 Labetalol Tachycardia High 09/05/2012 Lisinopril Cough 12/12/2009 Morphine And Related 02/23/2008 syncopal Morphine Hcl 12/07/2006 Amlodipine Besylate Hypotension 03/09/2011 Prednisone Edema face/lips/tongue High 12/13/2010 Chlorpromazine Hcl 12/20/2009 Acetaminophen 01/24/2012 overdose documented as of this encounter (statuses as of 02/06/2019) Medications Medication Sig Dispensed Refills Start Date End Date Status CLONIDINE HCL 0.3 MG PO TABSIndications:HTN, goal below 140/90 take 1 tablet by mouth four times a day 120 Tab 0 03/09/2013 Active metoprolol tartrate (LOPRESSOR) 50 MG Tablet Take 50 mg by mouth 2 times a day. 0 Active LORAzepam (ATIVAN) 0.5 MG Tablet Take 0.5 mg by mouth every 6 hours as needed. 0 Active traMADol (ULTRAM) 50 MG Tablet Take 50 mg by mouth every 6 hours as needed for Pain. 0 Active documented as of this encounter (statuses as of 02/06/2019) Active Problems Problem Noted Date History of DVT (deep vein thrombosis) Suicide attempt by acetaminophen overdos e 01/25/2012 Schizoaffective disorder 01/25/2012 Overweight (BMI 25.0-29.9) 08/21/2011 Overview: BMI= 26.34 08/21/11 Chronic pain disorder 08/21/2011 Posttraumatic stress disorder 08/21/2011 Bipolar I disorder, most recent episode manic, moderate 08/21/2011 Tobacco use disorder 08/21/2011 Anxiety state 04/03/2011 History of nonadherence to medical treat ment 04/03/2011 Irritable bowel syndrome 04/03/2011 HTN, goal below 140/90 09/08/2008 Drug dependence, abuse Overview: tramadol documented as of this encounter (statuses as of 02/06/2019) Resolved Problems Problem Noted Date Resolved Date Fibromyalgia 08/21/2011 01/25/2012 Myalgia and myositis 04/03/2011 01/25/2012 Other specified drug dependence, continuous 03/0701/25/2012 Tachycardia 12/08/2010 01/25/2012 VENOUS THROMBOSIS LEFT LEG- RECURRENT 05/04/2009 12/03/2018 Anticoagulation management encounter 05/02/2009 06/19/2010 Venous thrombosis 05/02/2009 05/04/2009 ACTIVE CASE MANAGEMENT 05/02/2009 0 Overview: D/c'd from [facility] 05/01/09,DVT, many questions and concers regarding Lovenox and coumadin. Posttraumatic stress disorder 03/08/2009 Esophageal reflux 03/08/2009 12/08/2010 Bipolar I disorder, most recent episode manic, m oderate 09/08/2008 08/21/2011 documented as of this encounter (statuses as of 02/06/2019) Social History Tobacco Use Types Packs/Day Years Used Date Current Every Day Smoker Cigarettes 1.5 37 Smokeless Tobacco: Never Used Alcohol Use Drinks/Week oz/Week Comments No quit 3 yrs ago Sex Assigned at Date Recorded Not on file Job Start Date Occupation Industry Not on file Not on file Not on file Travel History Travel Start Travel End documented as of this encounter Plan of Treatment Health Maintenance Due Date Last Done Comments DTaP,Tdap,and Td Vaccines (1 - Tdap) 10/11/1971 BREAST CANCER SCREENING DISCUSSION YEARLY AGES 40-75 05/23/2011 05/23/2010, 05/17/2010, 02/11/2009 LUNG CANCER SCREENING YEARLY-USE SMARTSET [id number] 02/17/2013 02/18/2012 *BASIC METABOLIC PANEL (BMP) FOR HTN YEARLY 08/10/2014 *DEPRESSION SCREENING, ANNUAL FOR PTS 18 AND OVER 09/05/2014 LIPID SCREEN EVERY 5 YRS-WOMEN AGE 45-75 11/07/2014 11/07/2009, 09/30/2008, 02/23/2008 DIABETES SCREEN EVERY 3 YRS-AGE 45 AND ABOVE 04/14/2015 04/14/2012, 02/18/2012, 03/09/2011, Additional history exists DXA-SCREENING EVERY 7 YRS-USE SMARTSET# [id number] TO ORDER 2017 PNEUMOCOCCAL ADULT 65 YRS AND OVER (1 of 2 - PCV13) 2017 Influenza Vaccine (FLU shot) (#1) 2019 MENINGOCOCCAL (MENACTRA) Aged Out No longer eligible based on patient's age to complete this topic documented as of this encounter Implants Not on filedocumented as of this encounter Advance Directives Documents on File Type Date Recorded Patient Product Development Assistant Expl anation Advanced Directive service a gadiel default Advanced Directive Advanced Directive Advanced Directive Advanced Directive Advanced Directive Advanced Directive Advanced Directive Advanced Directive Advanced Directive Advanced Directive Advanced Directive
--- OUTSIDE RECORDS SUMMARY | 2023-04-09 23:52 | External Medical Summary | Summary of Care ---
Author Name Unknown Organization [place] [address] Care Team Providers Care Fabric Coating Supervisor Name Role Phone Unavailable Primary Care Provider Unavailabl e Encounter Details Date Type Department Care Team Description 01/14/2019 Result Scan Unspecified Department <No scans attached> Allergies Active [...] CASE MANAGEMENT 05/02/2009 0 Overview: D/c'd from [facility] 05/01/09,DVT, many questions and concers regarding Lovenox [...] 05/17/2010, 02/11/2009 LUNG CANCER SCREENING YEARLY-USE SMARTSET [id number] 02/17/2013 02/18/2012 *BASIC METABOLIC PANEL (BMP) FOR [...] Not on filedocumented as of this encounter Procedures Procedure Name Priority Date/Time Associated Diagnosis Comments RADIOLOGY SCANNED RESULT 01/14/2019 documented in this encounter Results * RADIOLOGY SCANNED RESULT (01/14/2019) Specimen Narrative Performed At documented in this encounter Advance Directives Documents on File Type Date Recorded Patient Sprayer Hand Expl anation Advanced Directive service a gadiel default Advanced Directive Advanced Directive Advanced Directive Advanced Directive Advanced Directive Advanced Directive Advanced Directive Advanced Directive Advanced Directive Advanced Directive Advanced Directive
--- OUTSIDE RECORDS SUMMARY | 2023-04-09 23:52 | External Medical Summary | Summary of Care ---
Author Name Unknown Organization [place] [address] Care Team Providers Care Commercial Collections Specialist Name Role Phone Unavailable Primary Care Provider Unavailabl e Reason for Visit * Reason Comments Hospital Follow-Up Encounter Details Date Type Department Care Team Description 03/20/2019 Telephone Gastroenterology, [facility] [address] [facility] [place] [address] Virgie rCook CRNP 132 [place] [address] Hospital Follow-Up Allergies Active Allergy Reactions Severity Noted Date [...] as of this encounter (statuses as of 03/23/2019) Medications Medication Sig Dispensed Refills Start Date [...] as of this encounter (statuses as of 03/23/2019) Active Problems Problem Noted Date History of [...] as of this encounter (statuses as of 03/23/2019) Resolved Problems Problem Noted Date Resolved Date Fibromyalgia 08/21/2011 01/25/2012 Myalgia and myositis 04/03/2011 01/25/2012 Other specified drug dependence, continuous 03/0701/25/2012 Tachycardia 12/08/2010 01/25/2012 VENOUS THROMBOSIS LEFT LEG- RECURRENT 05/04/2009 12/03/2018 Anticoagulation management encounter 05/02/2009 06/19/2010 Venous thrombosis 05/02/2009 05/04/2009 ACTIVE CASE MANAGEMENT 05/02/2009 0 Overview: D/c'd from [facility] 05/01/09,DVT, many questions and concers regarding Lovenox and coumadin. Posttraumatic stress disorder 03/08/2009 Esophageal reflux 03/08/2009 12/08/2010 Bipolar I disorder, most recent episode manic, m oderate 09/08/2008 08/21/2011 documented as of this encounter (statuses as of 03/23/2019) Social History Tobacco Use Types Packs/Day Years Used Date Current Every Day Smoker Cigarettes 1.5 37 Smokeless Tobacco: Never Used Alcohol Use Drinks/Week oz/Week Comments No quit 3 yrs ago Sex Assigned at Date Recorded Not on file Job Start Date Occupation Industry Not on file Not on file Not on file Travel History Travel Start Travel End documented as of this encounter Miscellaneous Notes * Telephone Encounter - Shekhar Rock OSA - 03/23/2019 12:55 PM EDT Cell constantly rings busy, no VM on home#. Letter mailed. * Telephone Encounter - Xiomara De La O OSA - 03/20/2019 2:33 PM EDT NVM. Will attempt again later. * Telephone Encounter - Virgie Crook CRNP - 03/20/2019 2:04 PM EDT This pt was seen in consult at [facility] with Dr. Nicole for chronic abdominal pain. Though initially we considered IP EGD, because not urgent, and pt needed another procedure with sedation during this hospitalization and needed some psych care as well, we decided on OP EGD. Please contact the pt with an offer for EGD at with Dr. Nicole. If pt specifically requests urgent EGD (can't wait for Dr. Nicole to be in [place]), then OK to schedule with another doc. If she refuses, or is not interested then please document and do not continue to contact her to schedule. documented in this encounter Plan of Treatment Scheduled Orders Name Type Priority Associated Diagnoses Orde r Schedule EGD, FLEXIBLE, DIAGNOSTIC Procedures Routine Abdominal pain, generalized Ordered: 03/20/2019 Health Maintenance Due Date Last Done Comments DTaP,Tdap,and Td Vaccines (1 - Tdap) 10/11/1971 BREAST CANCER SCREENING DISCUSSION YEARLY AGES 40-75 05/23/2011 05/23/2010, 05/17/2010, 02/11/2009 LUNG CANCER SCREENING YEARLY-USE SMARTSET [id number] 02/17/2013 02/18/2012 *BASIC METABOLIC PANEL (BMP) FOR HTN YEARLY 08/10/2014 *DEPRESSION SCREENING,ANNUAL FOR PTS 12 AND OVER 09/05/2014 LIPID SCREEN EVERY 5 [...] Not on filedocumented as of this encounter Visit Diagnoses Diagnosis Abdominal pain, generalized- Primary documented in this encounter Advance Directives Documents on File Type Date Recorded Patient Seasonal Sales Associate Expl anation Advanced Directive service a gadiel default Advanced Directive Advanced Directive Advanced Directive Advanced Directive Advanced Directive Advanced Directive Advanced Directive Advanced Directive Advanced Directive Advanced Directive Advanced Directive
--- OUTSIDE RECORDS SUMMARY | 2023-04-09 23:52 | External Medical Summary | Summary of Care ---
Author Name Unknown Organization [place] [address] Care Team Providers Care Resistance Machine Welder Setter Name Role Phone Unavailable Primary Care Provider Unavailabl e Reason for Visit * Reason Comments Hospital Follow-Up Encounter Details Date Type Department Care Team Description 03/20/2019 Telephone Gastroenterology, [facility] [address] [facility] [place] [address] Virgie Crook CRNP [address] [place] [address] Hospital Follow-Up Allergies Active Allergy Reactions [...] as of this encounter (statuses as of 03/20/2019) Medications Medication Sig Dispensed Refills Start Date [...] as of this encounter (statuses as of 03/20/2019) Active Problems Problem Noted Date History of [...] as of this encounter (statuses as of 03/20/2019) Resolved Problems Problem Noted Date Resolved Date Fibromyalgia 08/21/2011 01/25/2012 Myalgia and myositis 04/03/2011 01/25/2012 Other specified drug dependence, continuous 03/0701/25/2012 Tachycardia 12/08/2010 01/25/2012 VENOUS THROMBOSIS LEFT LEG- RECURRENT 05/04/2009 12/03/2018 Anticoagulation management encounter 05/02/2009 06/19/2010 Venous thrombosis 05/02/2009 05/04/2009 ACTIVE CASE MANAGEMENT 05/02/2009 0 Overview: D/c'd from [facility] 05/01/09,DVT, many questions and concers regarding Lovenox and coumadin. Posttraumatic stress disorder 03/08/2009 Esophageal reflux 03/08/2009 12/08/2010 Bipolar I disorder, most recent episode manic, m oderate 09/08/2008 08/21/2011 documented as of this encounter (statuses as of 03/20/2019) Social History Tobacco Use Types Packs/Day Years [...] encounter Miscellaneous Notes * Telephone Encounter - Xiomara De La O OSA - 03/20/2019 2:33 PM EDT NVM. Will attempt again later. * Telephone Encounter - Virgie Crook CRNP - 03/20/2019 2:04 PM EDT This pt was seen in consult at [facility] with Dr. Nicole for chronic abdominal pain. [...] wait for Dr. Nicole to be in [place]), then OK to schedule with another doc. [...] 05/17/2010, 02/11/2009 LUNG CANCER SCREENING YEARLY-USE SMARTSET [id number] 02/17/2013 02/18/2012 *BASIC METABOLIC PANEL (BMP) FOR [...] Documents on File Type Date Recorded Patient Children Librarian Expl anation Advanced Directive service a gadiel default Advanced Directive Advanced Directive Advanced Directive Advanced Directive Advanced Directive Advanced Directive Advanced Directive Advanced Directive Advanced Directive Advanced Directive Advanced Directive
--- OUTSIDE RECORDS SUMMARY | 2023-04-09 23:52 | External Medical Summary | Summary of Care ---
Author Name Unknown Organization [place] [address] Care Team Providers Care [place] Attorney Name Role Phone Unavailable Primary Care Provider Unavailabl e Encounter Details Date Type Department Care Team Description 01/15/2019 Scan Encounter Unspecified Department <No scans attached> [...] CASE MANAGEMENT 05/02/2009 0 Overview: D/c'd from [facility] 05/01/09,DVT, many questions and concers regarding Lovenox [...] 05/17/2010, 02/11/2009 LUNG CANCER SCREENING YEARLY-USE SMARTSET [id number] 02/17/2013 02/18/2012 *BASIC METABOLIC PANEL (BMP) FOR [...] Documents on File Type Date Recorded Patient Manager E Commerce Expl anation Advanced Directive service a gadiel default Advanced Directive Advanced Directive Advanced Directive Advanced Directive Advanced Directive Advanced Directive Advanced Directive Advanced Directive Advanced Directive Advanced Directive Advanced Directive
--- OUTSIDE RECORDS SUMMARY | 2023-04-09 23:52 | External Medical Summary | Summary of Care ---
Author Name Unknown Organization [place] [address] Care Team Providers Care Supervisor Printing And Stamping Name Role Phone Unavailable Primary Care Provider Unavailabl e Encounter Details Date Type Department Care Team Description 03/20/2019 Result Scan Unspecified Department <No scans attached> [...] CASE MANAGEMENT 05/02/2009 0 Overview: D/c'd from [facility] 05/01/09,DVT, many questions and concers regarding [...] 05/17/2010, 02/11/2009 LUNG CANCER SCREENING YEARLY-USE SMARTSET [id number] 02/17/2013 02/18/2012 *BASIC METABOLIC PANEL (BMP) FOR [...] Procedure Name Priority Date/Time Associated Diagnosis Comments PROCEDURE SCANNED RESULT 03/20/2019 documented in this encounter Results * PROCEDURE SCANNED RESULT (03/20/2019) Specimen Narrative Performed At documented in this encounter Advance Directives Documents on File Type Date Recorded Patient Service Unit Operator Oil Well Expl anation Advanced Directive service a gadiel default Advanced Directive Advanced Directive Advanced Directive Advanced Directive Advanced Directive Advanced Directive Advanced Directive Advanced Directive Advanced Directive Advanced Directive Advanced Directive
--- OUTSIDE RECORDS SUMMARY | 2023-04-09 23:52 | External Medical Summary | Summary of Care ---
Author Name Unknown Organization [place] [address] Care Team Providers Care Marketing Liaison Name Role Phone Unavailable Primary Care Provider Unavailabl e Reason for Visit * Reason Comments Hospital Follow-Up Encounter Details Date Type Department Care Team Description 03/20/2019 Telephone Gastroenterology, [facility] 132 [facility] [place] [address] Virgie Crook CRNP 132 [place] [address] Hospital Follow-Up Allergies Active Allergy Reactions [...] CASE MANAGEMENT 05/02/2009 0 Overview: D/c'd from [facility] 05/01/09,DVT, many questions and concers [...] encounter Miscellaneous Notes * Telephone Encounter - Virgie Crook CRNP - 03/20/2019 2:04 PM EDT This pt was seen in consult at [facility] with Dr. Nicole for chronic abdominal pain. Though initially we considered IP EGD, because not urgent, and pt needed another procedure with sedation during this hospitalization and needed some psych care as well, we decided on OP EGD. Please contact the pt with an offer for EGD at with Dr. Nicole. If pt specifically requests urgent EGD (can't wait for Dr. Nicoel to be in [place]), then OK to schedule with another doc. [...] 05/17/2010, 02/11/2009 LUNG CANCER SCREENING YEARLY-USE SMARTSET [id number] 02/17/2013 02/18/2012 *BASIC METABOLIC PANEL (BMP) FOR [...] Documents on File Type Date Recorded Patient Thread Checker Expl anation Advanced Directive service a gadiel default Advanced Directive Advanced Directive Advanced Directive Advanced Directive Advanced Directive Advanced Directive Advanced Directive Advanced Directive Advanced Directive Advanced Directive Advanced Directive
--- OUTSIDE RECORDS SUMMARY | 2023-04-09 23:52 | External Medical Summary | Summary of Care ---
Author Name Unknown Organization [place] [address] Care Team Providers Care Airport Ramp Agent Name Role Phone Unavailable Primary Care Provider Unavailabl e Reason for Visit * Reason Comments Hospital Follow-Up Encounter Details Date Type Department Care Team Description 03/20/2019 Telephone Gastroenterology, [facility] [address] [facility] [place] [address] Virgie Crook CRNP 132 [place] [address] Hospital Follow-Up Allergies Active Allergy Reactions [...] CASE MANAGEMENT 05/02/2009 0 Overview: D/c'd from [facility] 05/01/09,DVT, many questions and concers regarding Lovenox [...] This pt was seen in consult at [facility] with Dr. Nicole for chronic abdominal pain. [...] wait for Dr. Nicole to be in [place]), then OK to schedule with another doc. [...] 05/17/2010, 02/11/2009 LUNG CANCER SCREENING YEARLY-USE SMARTSET [id number] 02/17/2013 02/18/2012 *BASIC METABOLIC PANEL (BMP) FOR [...] Documents on File Type Date Recorded Patient Corporate Tutor Expl anation Advanced Directive service a gadiel default Advanced Directive Advanced Directive Advanced Directive Advanced Directive Advanced Directive Advanced Directive Advanced Directive Advanced Directive Advanced Directive Advanced Directive Advanced Directive
--- OUTSIDE RECORDS SUMMARY | 2023-04-09 23:52 | External Medical Summary | Summary of Care ---
Author Name Unknown Organization [place] [address] Care Team Providers Care Packaging Inspector Name Role Phone Unavailable Primary Care Provider Unavailabl e Reason for Visit * Reason Comments Hospital Follow-Up Encounter Details Date Type Department Care Team Description 03/20/2019 Telephone Gastroenterology, [facility] 132 [facility] [place] [address] Virgie Crook CRNP 132 [place] [address] Hospital Follow-Up Allergies Active Allergy Reactions [...] as of this encounter (statuses as of 04/07/2019) Medications Medication Sig Dispensed Refills Start Date [...] as of this encounter (statuses as of 04/07/2019) Active Problems Problem Noted Date History of [...] as of this encounter (statuses as of 04/07/2019) Resolved Problems Problem Noted Date Resolved Date Fibromyalgia 08/21/2011 01/25/2012 Myalgia and myositis 04/03/2011 01/25/2012 Other specified drug dependence, continuous 03/0701/25/2012 Tachycardia 12/08/2010 01/25/2012 VENOUS THROMBOSIS LEFT LEG- RECURRENT 05/04/2009 12/03/2018 Anticoagulation management encounter 05/02/2009 06/19/2010 Venous thrombosis 05/02/2009 05/04/2009 ACTIVE CASE MANAGEMENT 05/02/2009 0 Overview: D/c'd from [facility] 05/01/09,DVT, many questions and concers regarding Lovenox and coumadin. Posttraumatic stress disorder 03/08/2009 Esophageal reflux 03/08/2009 12/08/2010 Bipolar I disorder, most recent episode manic, m oderate 09/08/2008 08/21/2011 documented as of this encounter (statuses as of 04/07/2019) Social History Tobacco Use Types Packs/Day Years [...] encounter Miscellaneous Notes * Telephone Encounter - Heavenly Muñoz OSA - 04/07/2019 2:50 PM EDT Patients son's phone number rings then goes busy. Home number has a VM that has not been set up yet. FYI-patient has not responded to our letter. * Telephone Encounter - Shekhar Rock OSA - 03/23/2019 12:55 PM EDT Cell constantly rings busy, no VM on home#. Letter mailed. * Telephone Encounter - Xiomara De La O OSA - 03/20/2019 2:33 PM EDT NVM. Will attempt again later. * Telephone Encounter - Virgie Crook CRNP - 03/20/2019 2:04 PM EDT This pt was seen in consult at [facility] with Dr. Nicole for chronic abdominal pain. [...] wait for Dr. Nicole to be in [place]), then OK to schedule with another doc. [...] 05/17/2010, 02/11/2009 LUNG CANCER SCREENING YEARLY-USE SMARTSET [id number] 02/17/2013 02/18/2012 *BASIC METABOLIC PANEL (BMP) FOR HTN YEARLY 08/10/2014 *DEPRESSION SCREENING,ANNUAL FOR PTS 12 AND OVER 09/05/2014 LIPID SCREEN EVERY 5 YRS-WOMEN AGE 45-75 11/07/2014 11/07/2009, 09/30/2008, 02/23/2008 DIABETES SCREEN EVERY 3 YRS-AGE 45 AND ABOVE 04/14/2015 04/14/2012, 02/18/2012, 03/09/2011, Additional history exists DXA-SCREENING EVERY 7 YRS-USE SMARTSET# [id number] TO ORDER 2017 PNEUMOCOCCAL ADULT 65 YRS [...] Documents on File Type Date Recorded Patient Opthalmic Tech Expl anation Advanced Directive service a gadiel default Advanced Directive Advanced Directive Advanced Directive Advanced Directive Advanced Directive Advanced Directive Advanced Directive Advanced Directive Advanced Directive Advanced Directive Advanced Directive
--- OUTSIDE RECORDS SUMMARY | 2023-04-09 23:53 | External Medical Summary | Continuity of Care Document ---
Author Name Unknown Address [address] [place] [address] Phone Organization 1 [facility] Address [address] [place] [address] Phone Care Team Providers Care Associate Relations Specialist Name Role Phone Lisa DO Maria Alejandra Unavailable Unavailable Allergies, Adverse Reactions, Alerts Substance Reaction Severity Status WARFARIN SODIUM Unknown Active labetalol Unknown Active aspirin internal bleeding Unknown Active Medications Medication Instructions Dosage Effective Dates (start - stop) Status Comments Colyte with Flavor Packs 240 gram-22.72 g-6.72 g-5.84 g oral solution take by Oral route 1/2 of drink at 3:00PM second 1/2 at 9:00 PM day before procedure Not Available - Active Dulcolax (bisacodyl) 5 mg tablet,delayed release take 4 tablet by oral route at 12 noon the day before the procedure - Active omeprazole 40 mg capsule,delayed release take 1 capsule by oral route every day 30 minutes to 1 hour prior to breakfast 40 MG - Active tramadol 50 mg tablet take 1 tablet by oral route every 4 hours as needed - Active lorazepam 0.5 mg tablet take 1 tablet by oral route every 8 hours as needed. - Active Micardis 20 mg tablet take 1 tablet by oral route every day 20 MG - Active clonidine HCl 0.3 mg tablet take 1 tablet by oral route 2 times every day 0.3 MG - Active Lopressor 50 mg tablet take 1 tablet by oral route 2 times every day with meals 50 MG - Active Problems Condition Effective Dates (start - stop) C linical Status Unknown Procedures Procedure Date OFFICE/OUTPATIENT VISIT, NEW Results Test Name Date and Time Measure Units Reference Range Abnormal Flag Comments Unknown Advance Directives Directive Yes / No Effective Date File Name Unknown Encounters Encounter Description Practice Location Reason(s) For Visit Diagnoses Date Provider Care Team Members OFFICE/OUTPA TIENT VISIT, NEW 1 [facility], [address], [place], [address], [place] tel:[phone] Gastroentero logy abdominal pain (chief complaint) RUQ abdominal painEpigastr ic painLower abdominal painNauseaHe artburnEncou nter for screening colonoscopy 6 Layo Regan. [address], [place], [address]. tel:[phone] Referring Provider: Maria Alejandra Bartholomew, [address] [place], [address]. tel:[phone] 1 [facility], [address], [place], [address], [place] tel:[phone] [facility] [place] [facility] Establishing Care (chief complaint)Abd ominal pain (chief complaint)Mikala ast lump (chief complaint)Hyp ertension (chief complaint)anx iety (chief complaint) Panic attacksEssen tial hypertension Mass of breast, leftGenerali zed abdominal painScreenin g for lipid disordersHis tory of DVT (deep vein thrombosis)P resence of IVC filter 6 Lisa Bess. [address] [facility] [place], [address]. tel:[phone] 1 [facility], [address], [place], [address], [place] tel:[phone] [facility] [place] Panic attacksOther chronic painDegenera tive globe diseaseEssen tial hypertension Chronic radicular cervical painLumbago with sciatica, right sideChronic bilateral low back pain with bilateral sciaticaMyof ascitisLower abdominal pain 6 Anton Lezama. [address] [place], [address]. tel:[phone] Family History Family Member Diagnosis Age At Onset Family history of DVT Father blood clots (Cause Of ) 66 Mother Inflammatory bowel disease Mother Hypertension Mother Hyperlipidemia Father Diabetes mellitus type 2 Mother Cancer, colon 33 Immunizations Vaccine Date Status Comments Tdap completed Source: Other P rovider Payers Payer name Insurance type Covered democrat ID Authoriza tion(s) Medicare Part [place] [id number] Medicare Part B [place] [id number] Social History Type Description Quantity Date Captured Alcohol Use Details No 016 Caffeine Use Details coffee 1 cup per day Tobacco Use Status Smoking Status Current every day smoker A Alcohol Use Details No 016 Caffeine Use Details coffee 1 cup per day Tobacco Use Status Smoking Status Current every day smoker A Vital Signs Date / Time: Height Weight BMI Pulse Rate Blood Pressure Temperature Respiratory Rate Body Surface Area Head Circumference BMI percentile 11:25: 00 62.00 in 131.40 lbs 24.0 3 kg/m eter (2) 97.40 F / 12:00: 00 80 /min 130/78 mm[Hg] Chief Complaint And Reason For Visit Most recent encounter only, dated '04/02/2016 11:16'. abdominal pain (chief complaint). Description: Associated symptoms include back pain, heartburn andnausea. Pertinent negatives include bloating, constipation, diarrhea, dyspnea, fever, hematuria, myalgia, rash, vomiting and weight loss. Reason For Referral Reason For Referral Unknown Plan Of Care Date Type Action Status Referral Ordered: Ultrasound Abd Comp (All Organs Evaluated) ordered Referral Ordered: ENDOSCOPY UPPER GI EXAM ordered Referral Ordered: COLONOSCOPY ordered Referral Ordered: Mammo Bilateral Diagnostic us if indicated ordered Referral Ordered: MRA Abdomen with or without contrast (specify) ordered Referral Referred To: Ted Osorio MD [address] [place], [place] [address], [address] [phone] Ordered: Referrals: [facility]. Ted Osorio MD. Location: [facility]. Evaluate and treat Appointment date/timeframe: 05/23/2016 ordered Referral Referred To: Shereen Vasques PA-C [address] [place] [address] [phone] Ordered: Referrals: [facility]. Location: [facility]. Evaluate and treat Appointment date/timeframe: 04/02/2016 ordered Referral Ordered: Referrals: [facility]. Location: [facility]. Evaluate and treat Appointment date/timeframe: 04/02/2016 ordered Referral Referred To: Ted Osorio MD [address] [place], [address] [phone] Ordered: Referrals: [facility]. Ted Osorio MD. Location: [facility]. Evaluate and treat Appointment date/timeframe: 05/23/2016 ordered Future Order: Lab Order AMYLASE SERUM ([id number]), Scheduled on: Ordered Future Order: Lab Order Lipase ( [id number]), Scheduled on: Ordered Future Order: Lab Order CBC with Diff ([id number]), Scheduled on: Ordered Future Order: Lab Order Liver (N [id number]), Scheduled on: Ordered Future Order: Lab Order Lipid (N [id number]), Scheduled on: Ordered Future Order: Lab Order BMP ([id number]), S cheduled on: Ordered Date Type Problem Goal Intervention Status Start Date History Of Present Illness Encounter Date Complaint History Of Prese nt Illness abdominal pain Associated sympt oms include back pain, heartburn and nausea. Pertinent negatives include bloating, constipation, diarrhea, dyspnea, fever, hematuria, myalgia, rash, vomiting and weight loss. abdominal pain (comments) Mrs. Kayla rodgers is a new patient to our office referred by with multiple GI complaints. The patient notes for at least the last 5 years she has had severe epigastric pain that radiates throughout her entire abdomen. The pain is constant. It is worse after she eats. It gets better after her food completely digests as she explains "I can feel every movement of the food through my small intestine and large intestine as it goes through each section and I know when its complete". The patient describes the pain as a sharp pain. She does not take any medications to help the pain.She complains of nausea but denies any vomiting. The nausea can occur at any moment. She notes "when the food enters my large intestine I immediately get nauseous". She has occasional heartburn. She denies any acid reflux. Her heartburn can occur at all times of the day. No specific foods cause this. The patient notes that she has normal BM, one BM daily. They are brown in color and formed, [place] scale #4. She notes that everyday although she moves her bowels daily she uses an enema. She notes she is really allergic to saline so she dumps this out and uses warm tap water. The patient denies ever passing a hard stool. She notes she has no more muscles in her rectum so this is why she uses the tap water enemas daily. She denies any rectal pain. She denies any bright red blood per rectum or black tarry stools.The patient notes that she has a very good appetite. She denies any early satiety. She denies any unintentional weight loss. She denies any recent illnesses or being around any sick contacts. She denies any fevers, chills or sweats.Per the patient she had both and EGD and colonoscopy about 10 years ago and they were both normal.She has not had any recent imaging of her abdomen.Her PCP has ordered an MRA to evaluate the vasculature of her abdomen as the patient has an IVC filter.Labs were also ordered- Patient had a slight decrease in her Hgb at 11.8. Platelets slightly elevated at 406,000. CMP was normal. Breast lump Discovered 1 wee k ago. The method of discovery was breast self exam. Status: asymptomatic. The Patient reports no pain. Mammography was not done. The mass can be described as firm. Risk factors include parity (first < age 19) and previous breast biopsy. Context includes post menopausal. Denies aggravating factors. Denies relieving factors. Hypertension The HTN started in 2000. Risk factors include age over age 60, family history HTN, gout or CAD, inactive lifestyle and smoking. The hypertension is exacerbated by stress and chronic pain. Associated symptoms include dyspnea, fatigue and nausea. Pertinent negatives include diaphoresis, hematuria and vomiting. Abdominal pain Onset: 5 Years. The problem is severe. The problem has worsened. The symptoms are constant. The location is epigastric. The reports radiation to the back. The quality of the pain is burning and sharp. These symptoms occur after bowel movement and after meals. Aggravating factors include food. Symptoms are relieved by analgesics, eructation, flatus and anxiolytics. Associated symptoms include back pain, bloating, change in appetite, constipation, diarrhea, dyspnea, eructation, flatulence and nausea. Pertinent negatives include blood in stool, diaphoresis, heartburn, hematuria and vomiting. Additional information: pain around where she feels IVC filter is located. anxiety There is continu ation of initial symptoms and worsening of previously reported symptoms. The patient reports functioning as very difficult. The patient presents with anxious/fearful thoughts, difficulty concentrating, difficulty falling asleep, difficulty staying asleep, excessive worry, fatigue, loss of appetite, paranoia, poor judgment, racing thoughts and restlessness but denies thoughts of or suicide. The patient's risk factors include history of depression. The anxiety is aggravated by conflict or stress and traumatic memories. The patient's relieving factors are medication (ativan). The anxiety is associated with nausea. The patient denies any sweating and vomiting. Establishing Care Functional Status Encounter Date Functional Assessment Cognitive Assessment N/A Orientation - Or iented to time, place, person, situation. N/A Orientation - Or iented to time, place, person, situation. Medications Administered Medication Instructions Dosage Effective Dates (start - stop) Status Comments Drug Treatment Unknown Instructions Date Instruction Additional Infor mation Unknown
--- OUTSIDE RECORDS SUMMARY | 2023-04-09 23:53 | External Medical Summary ---
Author Name Unknown Organization K01:[facility], [address] [place] [place] [address] Support Name Relationship Address Phone ALEJANDRINA MORA MD PROV Unknown Unavailabl e Laboratory Report Ordering Provider Test Date Status ALEJANDRINA MORA MD 02/15/2011 14:13-0400 Final Obs # Observation Date Value ABNL Reference Status Pe rforming Location 1 DESCRIPTION 02/21/2011 12:030400 Final TRAMADOL CONFIRMATION, [facility] TEST CODE [id number] MISCELLANEOUS TEST (NOTE) MISCELLANEOUS TEST Tramadol (Ultram), Cirmation by GCMS, Urine Tramadol by GCMS ([id number]) Tramadol by GCMS 45104 ng/mL .up03Clmamkqlp limit: 100 ng/mL
--- OUTSIDE RECORDS SUMMARY | 2023-04-09 23:53 | External Medical Summary ---
Author Name Unknown Organization K01:[facility], [address] [facility] [address] Support Name Relationship Address Phone GILBERT BRIZUELA DO PROV Unknown Unavaila ble Laboratory Report Ordering Provider Test Date Status GILBERT BRIZUELA DO 03/09/2011 10:020400 Final Obs # Observation Date Value ABNL Reference Status Pe rforming Location 1 BUN 1 15:46-040 0 5 L 6-20 mg/dL Final 2 Creatinine 1 15:46-040 0 0.6 0.5-1.1 mg/dL Final 3 Creatinine 1 15:46-040 0 GFR should be used to assess renal function. Plasma/Serum creatinine may not be able to properly reflect renal function in some cases. Final 4 Sodium 1 15:46-040 0 134 L 135-146 mmol/L Final 5 Potassium 1 15:46-040 0 5.0 3.5-5.1 mmol/L Final 6 Potassium 1 15:46-040 0 SLIGHTLY HEMOLYZED Final 7 Cl 1 15:46-040 0 101 98-111 mmol/L Final 8 CO2 1 15:46-040 0 22 22-32 mmol/L Final 9 Glucose 1 15:46-040 0 103 70-120 mg/dL Final 10 Anion gap 1 15:46-040 0 11 7-15 mmol/L Final 11 Calcium 1 15:46-040 0 9.3 8.3-10.5 mg/dL Final 12 GFR / 1.73 sq M.predicted 1 15:46-040 0 >60.0 >60 mL/min Final
--- OUTSIDE RECORDS SUMMARY | 2023-04-09 23:53 | External Medical Summary ---
Author Name Unknown Organization K03:[facility], [address] [place] [address] Support Name Relationship Address Phone ALEJANDRINA MORA MD PROV Unknown Unavailabl e Laboratory Report Ordering Provider Test Date Status ALEJANDRINA MORA MD 02/15/2011 14:13-0400 Final Obs # Observation Date Value ABNL Reference Status Pe rforming Location 1 METANEPHRINES,PL 02/19/2011 13:16-0400 54 <=57 pg/mL Final 2 NORMETANEPHRINE,PL 02/19/2011 13:16-0400 110 <=148 pg/mL Final 3 TOTAL METANEPHRINES,PL 02/19/2011 13:16-0400 164 <=205 pg/mL Final 4 TOTAL METANEPHRINES,PL 02/19/2011 13:16-0400 Final (NOTE) Elevations >4-fold upper reference range: strongly suggestive of a pheochromocytoma(1). Elevations >1- 4-fold upper reference range: significant but not diagnostic, may be due to medications or stress. Suggest running 24 hr urine fractionated metanephrines and/or serum Chromagranin A for cirmation. Reference: (1)Kaycee Cole et al, Plasma Chromogranin A or Urine Fractionated Metanephrines Follow-Up Testing Improves the Diagnostic Accuracy of Plasma Fractionated Metanephrines for Pheochromocytoma. The Journal of Clinical Endocrinology # Metabolism 93(1), 91-95, 2008.
--- OUTSIDE RECORDS SUMMARY | 2023-04-09 23:53 | External Medical Summary ---
Author Name Unknown Organization K01:[facility], [address] [facility] [address] Support Name Relationship Address Phone ALEJANDRINA MORA MD PROV Unknown Unavailabl e Laboratory Report Ordering Provider Test Date Status ALEJANDRINA MORA MD 02/15/2011 14:130400 Final Obs # Observation Date Value ABNL Reference Status Pe rforming Location 1 Amphetamines, Urine 011 01:11-0 400 NOT DETECTED XDET Final 2 Barbiturates, Urine 011 01:11-0 400 NOT DETECTED XDET Final 3 Benzodiazepines 011 01:11-0 400 NOT DETECTED XDET Final 4 Cannabinoids screen 011 01:11-0 400 NOT DETECTED XDET Final 5 Cocaine, screen 011 01:11-0 400 NOT DETECTED XDET Final 6 Opiates 011 01:11-0 400 NOT DETECTED XDET Final 7 Phencyclidine 011 01:11-0 400 NOT DETECTED XDET Final 8 MDMA 011 14:14-0 400 ECSTASY SCREENING IS NOW INCLUDED WITH AMPHETAMINESCREENI NG. Final 9 Oxycodone 011 01:11-0 400 NOT DETECTED XDET Final 10 Propoxyphene 011 01:11-0 400 NOT DETECTED XDET Final 11 Methadone 011 01:11-0 400 NOT DETECTED XDET Final 12 comment 011 14:14-0 400 SCREENING RESULTS QUALITATIVELY IDENTIFY DRUGS LISTED IN THE GML USER'S MANUAL FOR THE SPECIMEN TYPE INDICATED. RESULTS ARE PRESUMPTIVE UNLESS RETESTED BY A CONFIRMATORY METHOD. CONTACT TOXICOLOGY SERVICE FOR INFORMATION ON CONFIRMATORY TESTING. Final 13 comment 011 14:14-0 400 Final 14 DETECTION LIMIT 011 01:11-0 400 Final 15 DETECTION LIMIT 011 01:11-0 400 AMPHETAMINES 500 ng/ml Final 16 DETECTION LIMIT 011 01:11-0 400 BARBITURATES 200 ng/mL Final 17 DETECTION LIMIT 011 01:11-0 400 BENZODIAZEPINES 100 ng/mL Final 18 DETECTION LIMIT 011 01:11-0 400 CANNABINOIDS 50 ng/mL Final 19 DETECTION LIMIT 01:11-0 400 COCAINE METABOLITE 300 ng/mL Final 20 DETECTION LIMIT 01:11-0 400 OPIATES 300 ng/mL Final 21 DETECTION LIMIT 01:11-0 400 PCP 25 ng/mL Final 22 DETECTION LIMIT 01:11-0 400 ECSTACY 300 ng/mL Final 23 DETECTION LIMIT 01:11-0 400 OXYCODONE 100 ng/mL Final 24 DETECTION LIMIT 011 01:11-0 400 PROPOXYPHENE 300 ng/mL Final 25 DETECTION LIMIT 011 01:11-0 400 METHADONE 300 ng/mL Final 26 DETECTION LIMIT 011 01:11-0 400 ACETAMINOPHEN 10 ug/mL Final 27 DETECTION LIMIT 011 01:11-0 400 SALICYLATES 1.0 mg/mL Final
--- OUTSIDE RECORDS SUMMARY | 2023-04-09 23:53 | External Medical Summary ---
Author Name Unknown Organization K01:[facility], [address] [place] [address] Support Name Relationship Address Phone ALEJANDRINA MORA MD PROV Unknown Unavailabl e Laboratory Report Ordering Provider Test Date Status ALEJANDRINA MORA MD 11/20/2010 13:21-0400 Final Obs # Observation Date Value ABNL Reference Status Pe rforming Location 1 TSH 11/20/2010 20:32-0400 1.63 0.27-4.2 uIU/mL Final
--- OUTSIDE RECORDS SUMMARY | 2023-04-09 23:53 | External Medical Summary | Summary of Care ---
Author Name Unknown Organization [place] [address] Phone Care Team Providers Care Medical Aide Name Role Phone Hernandez Claire MD Primary Care Provider [phone] Encounter Details Date Type Department Care Team Description 09/04/2017 Result Scan Unspecified Department <No scans attached> Allergies Active Allergy Reactions Severity Noted Date Comments Warfarin Sodium Rash High 06/13/2009 Bleeding rash Labetalol Tachycardia High 09/05/2012 Prednisone Edema face/lips/tongue High 12/13/2010 Naproxen Sodium Other (Please comment) Medium 10/19/19 11 Abdominal pains Amitriptyline Nausea/vomiting 03/09/2011 Aspirin 02/23/2008 Internal bleed cramping Dicyclomine Hcl Other (Please comment) 03/16/20 13 couoldn't move, "made me sick Ibuprofen Edema Other 05/11/2010 Lisinopril Cough 12/12/2009 Morphine And Related 02/23/2008 syncopal Morphine Hcl 12/07/2006 Amlodipine Besylate Hypotension 03/09/2011 Chlorpromazine Hcl 12/20/2009 Acetaminophen 01/24/2012 overdose as of this encounter Medications Prescription Sig. Disp. Refills Start Date End Date Status CLONIDINE HCL 0.3 MG PO TABSIndications:HTN, goal below 140/90 take 1 tablet by mouth four times a day 120 Tab 0 03/09/2013 Active metoprolol tartrate (LOPRESSOR) 50 MG Tablet Take 50 mg by mouth 2 times a day. Active LORAzepam (ATIVAN) 0.5 MG Tablet Take 0.5 mg by mouth every 6 hours as needed. Active traMADol (ULTRAM) 50 MG Tablet Take 50 mg by mouth every 6 hours as needed for Pain. Active as of this encounter Active Problems Problem Noted Date Suicide attempt by acetaminophen overdos e ([facility]) 01/25/2012 Schizoaffective disorder ([facility]) 2 Overweight (BMI 25.0-29.9) 08/21/2011 Overview: BMI= 26.34 08/21/11 Chronic pain disorder 08/21/2011 Posttraumatic stress disorder 08/21/2011 Bipolar I disorder, most recent episode manic, moderate ([facility]) 08/21/2011 Tobacco use disorder 08/21/2011 Anxiety state 04/03/2011 History of nonadherence to medical treat ment 04/03/2011 Irritable bowel syndrome 04/03/2011 VENOUS THROMBOSIS LEFT LEG- RECURRENT HTN, goal below 140/90 09/08/2008 Drug dependence, abuse ([facility]) Overview: tramadol as of this encounter Resolved Problems Problem Noted Date Resolved Date Fibromyalgia 08/21/2011 01/25/2012 Myalgia and myositis 04/03/2011 01/25/2012 Other specified drug dependence, continuous 03/0701/25/2012 Tachycardia 12/08/2010 01/25/2012 Anticoagulation management encounter 05/02/2009 06/19/2010 Venous thrombosis 05/02/2009 05/04/2009 ACTIVE CASE MANAGEMENT 05/02/2009 0 Overview: D/c'd from [facility] 05/01/09,DVT, many questions and concers regarding Lovenox and coumadin. Posttraumatic stress disorder 03/08/2009 Esophageal reflux 03/08/2009 12/08/2010 Bipolar I disorder, most rec ent episode manic, moderate ([facility]) 09/08/2008 08/21/2011 as of this encounter Social History Tobacco Use Types Packs/Day Years Used Date Current Every Day Smoker Cigarettes 1.5 37 Smokeless Tobacco: Never Used Alcohol Use Drinks/Week oz/Week Comments No quit 3 yrs ago Sex Assigned at Date Recorded Not on file as of this encounter Plan of Treatment Health Maintenance Due Date Last Done Comments PNEUMOCOCCAL 19-64 MEDIUM RI SK (1 of 1 - PPSV23) 10/11/1971 BREAST CANCER SCREENING DISC USSION YEARLY AGES 40-75 05/23/2011 05/23/2010, 05/17/2010, 02/11/2009 FOBT ANNUALLY,AGES 18-100 11/16/2011 11/15/2010, PAP SMEAR-EVERY 3 YRS,AGES 21-65 08/09/2012 08/09/2009, 06/19/2007 (Done elsewhere) LUNG CANCER SCREENING YEARLY -USE SMARTSET [id number] 02/17/2013 02/18/2012 *BASIC METABOLIC PANEL (BMP) FOR HTN YEARLY 08/10/2014 *DEPRESSION SCREENING, ANNUA [place]uma FOR PTS 18 AND OVER 09/05/2014 LIPID SCREEN EVERY 5 YRS-WOM EN AGE 45-75 11/07/2014 11/07/2009, 09/30/2008, 02/23/2008 DIABETES SCREEN EVERY 3 YRS- AGE 45 AND ABOVE 04/14/2015 04/14/2012, 02/18/2012, 03/09/2011, Additional history exists Influenza Vaccine (FLU shot) (#1) 2017 COLONOSCOPY-EVERY 10 YRS AGE S 50-75 11/15/2020 11/15/2010 as of this encounter Implants Not on fileas of this encounter Results * RADIOLOGY SCANNED RESULT (09/04/2017) in this encounter Insurance Payer Benefit Plan / Group Subscriber ID Type Phone Address MEDICARE MEDICARE A AND B [id number] [place] as of this encounter
--- OUTSIDE RECORDS SUMMARY | 2023-04-09 23:53 | External Medical Summary | Summary of Care ---
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 Name Role Phone Hernandez Claire MD Primary Care Provider Sade vailable Reason for Visit * Reason Comments Previsit Planning Encounter Details Date Type Department Care Team Description 11/13/2018 Telephone [facility] [address] [place] [address] Hernandez Claire MD [address] [place] [address] Previsit Planning Allergies Active Allergy Reactions Severity Noted Date [...] as of this encounter (statuses as of 11/13/2018) Medications Medication Sig Dispensed Refills Start Date [...] as of this encounter (statuses as of 11/13/2018) Active Problems Problem Noted Date Suicide attempt by acetaminophen overdos e 01/25/2012 [...] as of this encounter (statuses as of 11/13/2018) Resolved Problems Problem Noted Date Resolved Date Fibromyalgia 08/21/2011 01/25/2012 Myalgia and myositis 04/03/2011 01/25/2012 Other specified drug dependence, continuous 03/0701/25/2012 Tachycardia 12/08/2010 01/25/2012 Anticoagulation management encounter 05/02/2009 06/19/2010 Venous thrombosis 05/02/2009 05/04/2009 ACTIVE CASE MANAGEMENT 05/02/2009 0 Overview: D/c'd from [facility] 05/01/09,DVT, many questions and concers regarding Lovenox and coumadin. Posttraumatic stress disorder 03/08/2009 Esophageal reflux 03/08/2009 12/08/2010 Bipolar I disorder, most recent episode manic, m oderate 09/08/2008 08/21/2011 documented as of this encounter (statuses as of 11/13/2018) Social History Tobacco Use Types Packs/Day Years [...] encounter Miscellaneous Notes * Telephone Encounter - Ruchi Mcdonnell LPN - 11/13/2018 8:00 AM EDT Patient contacted for Care Gaps Comprehensive Care Outreach. Last Office Visit: 03/16/2013 Next Office Visit: No Future Appointments Health Maintenance Due Topic Date Due DTaP,Tdap,and Td Vaccines (1 - Tdap) 10/11/1971 BREAST CANCER SCREENING DISCUSSION YEARLY AGES 40-75 05/23/2011 LUNG CANCER SCREENING YEARLY-USE SMARTSET [id number] 02/17/2013 *BASIC METABOLIC PANEL (BMP) FOR HTN YEARLY 08/10/2014 *DEPRESSION SCREENING, ANNUAL FOR PTS 18 AND OVER 09/05/2014 LIPID SCREEN EVERY 5 YRS-WOMEN AGE 45-75 11/07/2014 DIABETES SCREEN EVERY 3 YRS-AGE 45 AND ABOVE 04/14/2015 DXA-SCREENING EVERY 7 YRS-USE SMARTSET# [id number] TO ORDER 2017 PNEUMOCOCCAL ADULT 65 YRS AND OVER (1 of 2 - PCV13) 2017 Influenza Vaccine (FLU shot) (1) 03/05/2018 Outreach action taken: Appointments Reminded: AWV and PCP Contacted: Unable to reach - No phone #/Invalid #/No Voicemail. Line beeps. documented in this encounter Plan of Treatment Health Maintenance Due Date Last Done Comments DTaP,Tdap,and Td Vaccines (1 - Tdap) 10/11/1971 BREAST CANCER SCREENING DISCUSSION YEARLY AGES 40-75 05/23/2011 05/23/2010, 05/17/2010, 02/11/2009 LUNG CANCER SCREENING YEARLY-USE SMARTSET [id number] 02/17/2013 02/18/2012 *BASIC METABOLIC PANEL (BMP) FOR HTN YEARLY 08/10/2014 *DEPRESSION SCREENING, ANNUAL FOR PTS 18 AND OVER 09/05/2014 LIPID SCREEN EVERY 5 YRS-WOMEN AGE 45-75 11/07/2014 11/07/2009, 09/30/2008, 02/23/2008 DIABETES SCREEN EVERY 3 YRS-AGE 45 AND ABOVE 04/14/2015 04/14/2012, 02/18/2012, 03/09/2011, Additional history exists DXA-SCREENING EVERY 7 YRS-USE SMARTSET# [id number] TO ORDER 2017 PNEUMOCOCCAL ADULT 65 YRS AND OVER (1 of 2 - PCV13) 2017 Influenza Vaccine (FLU shot) (#1) 2018 MENINGOCOCCAL (MENACTRA) Aged Out No longer eligible based on patient's age to complete this topic documented as of this encounter Implants Not on filedocumented as of this encounter Advance Directives Patient has advance care planning documents on file. For more information, please contact: [place] [id number]
--- OUTSIDE RECORDS SUMMARY | 2023-04-09 23:53 | External Medical Summary | Continuity of Care Document ---
Author Name Unknown Address [address] [place] [address] Phone Organization 1 [facility] Address [address] [facility] [address] [place] [address] Phone Care Team Providers Care Clip Riveter Name Role Phone Maria Alejandra Gonzalez DO Unavailable Unavailable Allergies, Adverse Reactions, Alerts Substance Reaction Severity Status WARFARIN SODIUM Unknown Active labetalol Unknown Active aspirin internal bleeding Unknown Active Medications Medication Instructions Dosage Effective Dates (start - stop) Status Comments tramadol 50 mg tablet take 1 tablet [...] day with meals 50 MG - Active lorazepam 0.5 mg tablet take 1 tablet by oral route every 8 hours as needed. - No Longer Active tramadol 50 mg tablet take 1 tablet by oral route every 4 hours as needed - No Longer Active Senna Laxative 8.6 mg tablet take 1 tablet by oral route every day as needed for constipation Not Available - No Longer Active Problems Condition Effective Dates (start - stop) C linical Status Unknown Procedures Procedure Date OFFICE/OUTPATIENT VISIT, EST Results Test Name Date and Time Measure Units Reference Range Abnormal Flag Comments Unknown Advance Directives Directive Yes / No Effective Date File Name Unknown Encounters Encounter Description Practice Location Reason(s) For Visit Diagnoses Date Provider Care Team Members OFFICE/OUTPA TIENT VISIT, EST 1 [facility], [address], [place], [address], [place] tel:[phone] [facility] [place] Establishing Care (chief complaint)Abd ominal pain (chief complaint)Mikala ast lump (chief complaint)Hyp ertension (chief complaint)anx iety (chief complaint) Panic attacksEssential hypertensionMass of breast, leftGeneralized abdominal painScreening for lipid disordersHistory of DVT (deep vein thrombosis)Presen ce of IVC filter 6 Lisa Bess. [address] [place] [address], [address]. tel:[phone] 1 [facility], [address], [place], [address], [place] tel:[phone] [facility] [place] Panic attacksOther chronic painDegenerative globe diseaseEssential hypertensionChron ic radicular cervical painLumbago with sciatica, right sideChronic bilateral low back pain with bilateral sciaticaMyofascit isLower abdominal pain 6 Anton Lezama. [address] [place] [address], [address]. tel:[phone] Family History Family Member Diagnosis Age At Onset Family history of DVT Father blood clots (Cause Of ) 66 Mother Inflammatory bowel disease Mother Hypertension Mother Hyperlipidemia Father Diabetes mellitus type 2 Mother Cancer, colon 33 Immunizations Vaccine Date Status Comments Tdap completed Source: Other P rovider Payers Payer name Insurance type Covered republican ID Authoriza tion(s) Medicare Part A [place] [id number] Medicare Part B MB [id number] Social History Type Description Quantity Date Captured Alcohol Use Details No 016 Caffeine Use Details coffee 1 cup per day Tobacco Use Status 16 Smoking Status Current every day smoker A Vital Signs Date / Time: Height Weight BMI Pulse Rate Blood Pressure Temperature Respiratory Rate Body Surface Area Head Circumference BMI percentile / 13:16: 00 61.00 in 127.40 lbs 24.0 7 kg/m cecilio (2) :28: 00 72 /min 188/104 mm[Hg] 16 /min Chief Complaint And Reason For Visit Most recent encounter only, dated '03/29/2016 12:55'. Establishing Care (chief complaint) Abdominal pain (chief complaint). Description: Onset: 5 Years. The problem is severe. The problem has worsened. The symptoms are constant. The location is epigastric. The reports radiation to the back. The quality of the pain is burning and sharp. These symptoms occur after bowel movement and aftermeals. Aggravating factors include food. Symptoms are relieved by analgesics, eructation, flatus and anxiolytics. Associated symptoms include back pain, bloating, change in appetite, constipation, diarrhea, dyspnea, eructation, flatulence and nausea. Pertinent negatives include blood in stool, diaphoresis, heartburn, hematuria and vomiting. Additional information: pain around where she feels IVC filter is located. Breast lump (chief complaint). Description: Discovered 1 week ago. The method of discovery was breast self exam. Status: asymptomatic. The Patient reports no pain. Mammography was not done. The mass can be described as firm. Risk factors include parity (first < age 19) and previous breast biopsy. Context includes post menopausal. Denies aggravating factors. Denies relieving factors. Hypertension (chief complaint). Description: The HTN started in 2000. Risk factors include age overage 60, family history HTN, gout or CAD, inactive lifestyle and smoking. The hypertension is exacerbated by stress and chronic pain. Associated symptoms include dyspnea, fatigue and nausea. Pertinent negatives include diaphoresis, hematuria and vomiting. anxiety (chief complaint). Description: There is continuation of initial symptoms and worsening of previously reported symptoms. The patient reports functioning as very difficult. The patient presents with anxious/fearful thoughts, difficulty concentrating, difficulty falling asleep, difficulty stay ing asleep, excessive worry, fatigue, loss of appetite, paranoia, poor judgment, racing thoughts and restlessness but denies thoughts of or suicide. The patient's risk factors include history of depression. The anxiety is aggravated by conflict or stress and traumatic memories. The patient's relieving factors are medication (ativan). The anxiety is associated with nausea. The patient denies any sweating and vomiting. Reason For Referral Reason For Referral Unknown Plan Of Care Date Type Action Status Referral Ordered: Mammo Bilateral Diagnostic us if indicated ordered Referral Ordered: MRA Abdomen with or without contrast (specify) ordered Referral Referred To: Ted Osorio MD [address] [place], [address] [phone] Ordered: Referrals: [facility]. Ted Osorio MD. Location: [facility]. Evaluate and treat Appointment date/timeframe: 05/23/2016 ordered Referral Referred To: Shereen Vasques PA-C [address] [place] [address] [phone] Ordered: Referrals: [facility] Gastroenterology. Location: [facility] Gastroenterology. Evaluate and treat Appointment date/timeframe: 04/02/2016 ordered Referral Ordered: Referrals: [facility]. Location: [facility] G[facility]. Evaluate and treat Appointment date/timeframe: 04/02/2016 ordered Referral Referred To: Ted Osorio MD [address] [place], [address] [phone] Ordered: Referrals: [facility]. Ted Osorio MD. Location: [facility]. Evaluate and treat Appointment date/timeframe: 05/23/2016 ordered Future Order: Lab Order AMYLASE SERUM ([id number]), Scheduled on: Ordered Future Order: Lab Order Lipase ( [id number]), Scheduled on: Ordered Future Order: Lab Order CBC with Diff ([id number]), Scheduled on: Ordered Future Order: Lab Order Liver (N [id number]), Scheduled on: Ordered Future Order: Lab Order Lipid ([id number]), Scheduled on: Ordered Future Order: Lab Order BMP ([id number]), S cheduled on: Ordered Date Type Problem Goal Intervention Status Start Date History Of Present Illness Encounter Date Complaint History Of Prese nt Illness Breast lump Discovered 1 wee k ago. [...] Pertinent negatives include diaphoresis, hematuria and vomiting. anxiety There is continu ation of initial [...] denies any sweating and vomiting. Establishing Care Abdominal pain Onset: 5 Years. The problem [...] where she feels IVC filter is located. Functional Status Encounter Date Functional Assessment Cognitive Assessment N/A Orientation - Or iented to time, place, person, situation. Medications Administered Medication Instructions Dosage Effective Dates (start - stop) Status Comments Drug Treatment Unknown Instructions Date Instruction Additional Infor mation Unknown
--- OUTSIDE RECORDS SUMMARY | 2023-04-09 23:53 | External Medical Summary ---
Author Name Unknown Organization [id number], [address] [place] [address] Support Name Relationship Address Phone ALEJANDRINA MORA MD PROV Unknown Unavailabl e Laboratory Report Ordering Provider Test Date Status ALEJANDRINA MORA MD 02/15/2011 14:13-0400 Final Obs # Observation Date Value ABNL Reference Status Pe rforming Location 1 PRA LC MS MS 02/21/2011 09:31-0400 0.92 0.25-5.82 ng/mL/h Final 2 Aldosterone / Renin ratio 02/21/2011 09:31-0400 6.5 0.9-28.9 Ratio Final 3 ALDOSTERONE 02/21/2011 09:31-0400 6 ng/dL Final 4 ALDOSTERONE 02/21/2011 09:31-0400 Final (NOTE) .[id number] Reference Ranges for Aldosterone, .ti4LC/MS/MS: .za0Hmobpnu 8:00-10:00 am < or = 28 ng/dL .kc1Sjcogcn 4:00-6:00 pm < or = 21 ng/dL .vu9Rvdopd 8:00-10:00 am 3-16 ng/dL 02/21/11 (NOTE) Reference lab accession: [id number] Test performed by: [facility] [id number] Cameron smith [address] [place], [place] [address] [address] 2Phone: Director: Vernon Gomez M.D.
--- OUTSIDE RECORDS SUMMARY | 2023-04-09 23:53 | External Medical Summary | Continuity of Care Document ---
Author Name Unknown Address [address] [place] [address] Phone [facility] [email or web address] [facility] Address [address] [facility]. [address] [place] [address] Phone Care Team Providers Care Heat Regulator Name Role Phone Maria Alejandra Gonzalez DO Unavailable Unavailable Allergies, Adverse Reactions, Alerts Substance Reaction Severity Status WARFARIN SODIUM Unknown Active labetalol Unknown Active aspirin internal bleeding Unknown Active Medications Medication Instructions Dosage Effective Dates (start - stop) Status Comments Nexium 40 mg capsule,delayed release take 1 capsule by oral route every day 40 MG - Active lorazepam 0.5 mg tablet take 1 tablet by oral route every 8 hours as needed. - Active May fill 01/16/17. Queried on PDMP and no concerns. May fill 02/14/17. tramadol 50 mg tablet take 1 tablet by oral route every 4 hours as needed - Active May fill 02/14/17. Queried on PDMP and no concerns. Lopressor 50 mg tablet TAKE ONE TABLET BY MOUTH TWICE DAILY WITH MEALS 50 MG - Active clonidine HCl 0.3 mg tablet take 1 tablet by oral route 2 times every day 0.3 MG - No Longer Active Problems Condition Effective Dates (start - stop) C linical Status H/O: pulmonary embolus Active Hiatal hernia w/ gastroesoph ageal reflux disease Active Anxiety Active Essential hypertension Active Procedures Procedure Date OFFICE/OUTPATIENT VISIT, EST Results Test Name Date and Time Measure Units Reference Range Abnormal Flag Comments Unknown Advance Directives Directive Yes / No Effective Date File Name Unknown Encounters Encounter Description Practice Location Reason(s) For Visit Diagnoses Date Provider Care Team Members OFFICE/OUTPA TIENT VISIT, EST [facility], [address], [place], [address], [place] tel:[phone] [facility] Family Medicine/[place] constipation (chief complaint)Chr onic Conditions (chief complaint) Anxiety disorder, unspecifiedE ssential (primary) hypertension GERD without esophagitisC hronic idiopathic constipation 7 Lisa Maria Alejandra. [address] [place], [address]. tel:[phone] [facility], [address], [place], [address], [place] tel:[phone] [facility] Family Medicine/[place] 7 Lisa Maria Alejandra. [address] [place], [address]. tel:[phone] [facility], [address], [place], [address], [place] tel:[phone] [facility] Family Medicine/[place] 7 Lisa Maria Alejandra. [address] [place], [address]. tel:[phone] [facility], [address], [place], [address], [place] tel:[phone] [facility] Family Medicine/[place] Constipation , unspecified constipation type 7 Lisa Maria Alejandra. [address] [place], [address]. tel:[phone] [facility], [address], [place], [address], [place] tel:[phone] [facility] Family Medicine/[place] Mass of breast, left 7 Elisa Karinne. [address] [place], [address]. tel:[phone] [facility], [address], [place], [address], [place] tel:[phone] [facility] Family Medicine/[place] Panic attacksEssen tial hypertension Mass of breast, leftOther specified abnormal uterine and vaginal bleedingPost -menopausal bleeding Apr- 7 Elisa House. [address] [place], [address]. tel:[phone] [facility], [address], [place], [address], [place] tel:[phone] [facility] Family Medicine/[place] Mar- 7 [facility]. [address] [place], [address]. tel:[phone] [facility], [address], [place], [address], [place] tel:[phone] [facility] Family Medicine/[place] Compound heterozygous MTHFR mutation [id number] Anxiety disorder, unspecifiedE ssential (primary) hypertension Gastro-esoph ageal reflux disease without esophagitisR UQ abdominal painPersonal history of pulmonary embolism Sep- 6 [facility]. [address] [place], [address]. tel:[phone] [facility], [address], [place], [address], [place] tel:[phone] [facility] Family Medicine/[place] MTHFR mutation Sep-0 6 [facility] Maria Alejandra. [address] [place], [address]. tel:[phone] [facility], [address], [place], [address], [place] tel:[phone] Gastroentero logy RUQ abdominal painNauseaHe artburnEncou nter for screening colonoscopyE pigastric painLower abdominal pain 6 Layo Regan. [address], [place], [address]. tel:[phone] Referring Provider: Maria Alejandra Bartholomew, [address] [place], [address]. tel:[phone] [facility], [address], [place], [address], [place] tel:[phone] [facility] Family Medicine/[place] Panic attacksEssen tial hypertension Mass of breast, leftHistory of DVT (deep vein thrombosis)P resence of IVC filterGenera lized abdominal painScreenin g for lipid disorders 6 Lisa Maria Alejandra. [address] [place], [address]. [phone] [facility], [address], [place], [address], [place] tel:[phone] [facility] Family Medicine/[place] Panic attacksOther chronic painDegenera tive globe diseaseEssen tial hypertension Chronic radicular cervical painLumbago with sciatica, right sideChronic bilateral low back pain with bilateral sciaticaMyof ascitisLower abdominal pain 6 Darin Lezama. [address] [place], [address]. [phone] Family History Family Member Diagnosis Age At Onset Family history of DVT Father blood clots (Cause Of ) 66 Mother Inflammatory bowel disease Mother Hypertension Mother Hyperlipidemia Father Diabetes mellitus type 2 Mother Cancer, colon 33 Immunizations Vaccine Date Status Comments Tdap completed Source: Other P rovider Payers Payer name Insurance type Covered republican ID Authoriza tion(s) Medicare Part A [place] [id number] Medicare Part B MB [id number] Social History Type Description Quantity Date Captured Alcohol Use Details No 017 Caffeine Use Details coffee 1 cup per day Tobacco Use Status Cigarette smoker Smoking Status Current every day smoker A Smoking Tobacco Use Details Cigarette: No Details Available Cigarette: No Details Available Vital Signs Date / Time: Height Weight BMI Pulse Rate Blood Pressure Temperature Respiratory Rate Body Surface Area Head Circumference BMI percentile 2:06 PM 100 /min 178/98 mm[Hg] 1:42 PM 108 /min 97.90 F Chief Complaint And Reason For Visit Most recent encounter only, dated '03/06/2017 13:32'. constipation (chief complaint). Description: Onset: 8 months ago. The patient describes it as hard.It occurs constantly. The problem is worse. Symptom is aggravated by eating. Relieving factors include enema. She is also experiencing abdominal pain, back pain, bloating, change in stool caliber, change in stool pattern, flatulence, nausea and belching. Pertinent negatives include change in appetite and vomiting. Additional information: Hungry but afraid to eat anything. Feels as though the whole "digestive process is painful". Uses an enema and unable to have BM without assistance. Epigastric pain does not improve with BM. Chronic Conditions (chief complaint) Reason For Referral Reason For Referral Unknown Plan Of Care Date Type Action Status Referral Ordered: Gastroenterology (related to Constipation, unspecified constipation type) ordered Referral Ordered: Referrals: Gastroenterology. Evaluate and treat ordered Referral Ordered: Ultrasound Breast, Complete Bilateral ordered Referral Ordered: Obstetrics/Lithographic Proofer Apprentice (related to Post-menopausal bleeding) ordered Referral Ordered: Mammo Bilateral Diagnostic Appointment date/timeframe: [facility] ordered Referral Ordered: Referrals: Obstetrics/Lithographic Proofer Apprentice. Location: [facility]. Evaluate and treat ordered Referral Ordered: COLONOSCOPY ordered Referral Ordered: ENDOSCOPY UPPER GI EXAM ordered Referral Ordered: Ultrasound Abd Comp (All Organs Evaluated) ordered Referral Ordered: Mammo Bilateral Diagnostic us if indicated ordered Referral Ordered: MRA Abdomen with or without contrast (specify) ordered Referral Ordered: Referrals: [facility] Gastroenterology. Location: [facility] Gastroenterology. Evaluate and treat Appointment date/timeframe: 04/02/2016 ordered Referral Referred To: Ted Osorio MD [address] [place] [address], [address] [phone] Ordered: Referrals: [facility] Pain Management. Ted Osorio MD. Location: [facility] Pain Management. Evaluate and treat Appointment date/timeframe: 05/23/2016 ordered Future Order: Lab Order AMYLASE SERUM ([id number]), Scheduled on: Ordered Future Order: Lab Order Lipase ( [id number]), Scheduled on: Ordered Future Order: Lab Order Liver ([id number]), Scheduled on: Ordered Future Order: Lab Order CBC with Diff ([id number]), Scheduled on: Ordered Future Order: Lab Order BMP ([id number]), S cheduled on: Ordered Future Order: Lab Order T4 Free ([id number]), Scheduled on: Ordered Future Order: Lab Order TSH ([id number]), S cheduled on: Ordered Future Order: Lab Order CBC with Diff ([id number]), Scheduled on: Ordered Future Order: Lab Order AMYLASE SERUM ([id number]), Scheduled on: Ordered Future Order: Lab Order Lipase ( [id number]), Scheduled on: Ordered Future Order: Lab Order CBC with Diff ([id number]), Scheduled on: Ordered Future Order: Lab Order Liver (N [id number]), Scheduled on: Ordered Future Order: Lab Order Lipid (N [id number]), Scheduled on: Ordered Future Order: Lab Order BMP ([id number]), S cheduled on: Ordered Date Type Problem Goal Intervention Status Start Date History Of Present Illness Encounter Date Complaint History Of Prese nt Illness constipation Onset: 8 months ago. The patient describes it as hard. It occurs constantly. The problem is worse. Symptom is aggravated by eating. Relieving factors include enema. She is also experiencing abdominal pain, back pain, bloating, change in stool caliber, change in stool pattern, flatulence, nausea and belching. Pertinent negatives include change in appetite and vomiting. Additional information: Hungry but afraid to eat anything. Feels as though the whole "digestive process is painful". Uses an enema and unable to have BM without assistance. Epigastric pain does not improve with BM. Chronic Conditions constipation (comments) took oskar tac which helped for awhile but the effect wore off per Son. Has noted GI coctail in ED has helped in the past for 1-2 hours. Functional Status Encounter Date Functional Assessment Cognitive Assessment N/A Orientation - Or iented to time, place, person, situation. Medications Administered Medication Instructions Dosage Effective Dates (start - stop) Status Comments Drug Treatment Unknown Instructions Date Instruction Additional Infor mation Unknown
--- OUTSIDE RECORDS SUMMARY | 2023-04-09 23:53 | External Medical Summary | Continuity of Care Document ---
Author Name Unknown Address [address] [place] [address] Phone Organization 1 [facility] Address [address] [facility]. [address] [place] [address] Phone Care Team Providers Care Lead Software Developer Name Role Phone Maria Alejandra Gonzalez DO Unavailable Unavailable Allergies, Adverse Reactions, Alerts Substance Reaction Severity Status WARFARIN SODIUM Unknown Active labetalol Unknown Active aspirin internal bleeding Unknown Active Medications Medication Instructions Dosage Effective Dates (start - stop) Status Comments Eliquis 2.5 mg tablet take 1 tablet by oral route 2 times every day 2.5 MG - Active Bentyl 10 mg capsule take 1 capsule by oral route 3 times every day 10 MG - Active Colyte with Flavor Packs 240 gram-22.72 g-6.72 [...] C linical Status H/O: pulmonary embolus Active Essential hypertension Active Anxiety Active Hiatal hernia w/ gastroesoph ageal reflux disease Active Procedures Procedure Date OFFICE/OUTPATIENT VISIT, EST Results Test Name Date and Time Measure Units Reference Range Abnormal Flag Comments Unknown Advance Directives Directive Yes / No Effective Date File Name Unknown Encounters Encounter Description Practice Location Reason(s) For Visit Diagnoses Date Provider Care Team Members OFFICE/OUTPA TIENT VISIT, EST 1 [facility], [address], [place], [address], [place] tel:[phone] [facility] Family Medicine/Loc [place] abdominal pain (chief complaint)Chr onic Conditions (chief complaint) Compound heterozygous MTHFR mutation [id number]/[id number] Anxiety disorder, unspecifiedE ssential (primary) hypertension Gastro-esoph ageal reflux disease without esophagitisR UQ abdominal painPersonal history of pulmonary embolism Apr- 6 Lisa Bess. [address] [facility] [place], [address]. tel:[phone] 1 [facility], [address], [place], [address], [place] tel:[phone] [facility] Family Medicine/[place] MTHFR mutation Sep-0 6 Lisa Bess. [address] [facility] [place], [address]. tel:[phone] 1 [facility], [address], [place], [address], [place] tel:[phone] Gastroentero logy RUQ abdominal painEpigastr ic painLower abdominal painNauseaHe artburnEncou nter for screening colonoscopy 6 Layo Regan. [address], [place], [address]. tel:[phone] Referring Provider: Maria Alejandra Bartholomew, [address] [place] [address], [address]. tel:[phone] 1 [facility], [address], [place], [address], tel:[phone] [facility] Family Medicine/Loc [place] Establishing Care (chief complaint)Abd ominal pain (chief complaint)Mikala ast lump (chief complaint)Hyp ertension (chief complaint)anx iety (chief complaint) Panic attacksEssen tial hypertension Mass of breast, leftGenerali zed abdominal painScreenin g for lipid disordersHis tory of DVT (deep vein thrombosis)P resence of IVC filter 6 Lisakuldeep Bess. [address] [place] [address], [address]. tel:[phone] 1 [facility], [address], [place], [address], tel:[phone] [facility] Medicine/Loc [place] Panic attacksOther chronic painDegenera tive globe diseaseEssen tial hypertension Chronic radicular cervical painLumbago with sciatica, right sideChronic bilateral low back pain with bilateral sciaticaMyof ascitisLower abdominal pain 6 Anton Lezama. [address] [place] [address], [address]. tel:[phone] Family History Family Member Diagnosis Age At Onset Family history of DVT Father blood clots (Cause Of ) 66 Mother Inflammatory bowel disease Mother Hypertension Mother Hyperlipidemia Father Diabetes mellitus type 2 Mother Cancer, colon 33 Immunizations Vaccine Date Status Comments Tdap completed Source: Other P rovider Payers Payer name Insurance type Covered green party ID Authoriza tion(s) Medicare Part A [place] [id number] Medicare Part B MB [id number] Social History Type Description Quantity Date Captured Alcohol Use Details No 016 Caffeine Use Details coffee 1 cup per day Tobacco Use Status Cigarette smoker Smoking Status Current every day smoker S Smoking Tobacco Use Details Cigarette: No Details Available Cigarette: No Details Available Alcohol Use Details No 016 Caffeine Use Details coffee 1 cup per day Tobacco Use Status 16 Smoking Status Current every day smoker A Vital Signs Date / Time: Height Weight BMI Pulse Rate Blood Pressure Temperature Respiratory Rate Body Surface Area Head Circumference BMI percentile 08:33: 00 62.00 in 128.90 lbs 23.5 8 kg/m eter (2) / 08:39: 00 80 /min 124/84 mm[Hg] 16 /min Chief Complaint And Reason For Visit Most recent encounter only, dated '04/16/2016 08:25'. abdominal pain (chief complaint). Description: The severity of the problem is moderate. The problemhas not changed. The symptoms are recurring. The location is diffuse. The quality of the pain is achy and colicky. These symptoms occur after meals. Aggravating factors include food. The denies relieving factors. Associated symptoms include bloating, eructation, heartburn and nausea. Pertinent negatives include blood in stool, constipation, dyspnea and flatulence. Additional information: mostly located RUQ however will "feel" food travel throughout the abd. Chronic Conditions (chief complaint) Reason For Referral Reason For Referral Unknown Plan Of Care Date Type Action Status Referral Ordered: Mammo Bilateral Diagnostic us if indicated ordered Referral Ordered: MRA Abdomen with or without contrast (specify) ordered Referral Referred To: Ted Osorio MD [address] [place], [address] [phone] Ordered: Referrals: [facility] Pain Management. Ted Osorio MD. Location: [facility] Pain Management. Evaluate and treat Appointment date/timeframe: 05/23/2016 ordered Referral Referred To: Shereen Vasques PA-C [address] [place], [facility] [phone] Ordered: Referrals: [facility] Gastroenterology. Location: [facility] Gastroenterology. Evaluate and treat Appointment date/timeframe: 04/02/2016 ordered Referral Ordered: Referrals: [facility] Gastroenterology. Location: [facility] Gastroenterology. Evaluate and treat Appointment date/timeframe: 04/02/2016 ordered Referral Referred To: Ted Osorio MD [address] [place], [address] [phone] Ordered: Referrals: [facility] Pain Management. Ted Osorio MD. Location: [facility] Pain Management. Evaluate and treat Appointment date/timeframe: 05/23/2016 ordered Referral Ordered: Ultrasound Abd Comp (All Organs Evaluated) ordered Referral Ordered: ENDOSCOPY UPPER GI EXAM ordered Referral Ordered: COLONOSCOPY ordered Future Order: Lab Order CBC with Diff ([id number]), Scheduled on: Ordered Future Order: Lab Order AMYLASE SERUM ([id number]), Scheduled on: Ordered Future Order: Lab Order Lipase ( [id number]), Scheduled on: Ordered Future Order: Lab Order CBC with Diff ([id number]), Scheduled on: Ordered Future Order: Lab Order Liver ([id number]), Scheduled on: Ordered Future Order: Lab Order Lipid ([id number]), Scheduled on: Ordered Future Order: Lab Order BMP ([id number]), S cheduled on: Ordered Date Type Problem Goal Intervention Status Start Date History Of Present Illness Encounter Date Complaint History Of Prese nt Illness Chronic Conditions abdominal pain The severity of the problem is moderate. The problem has not changed. The symptoms are recurring. The location is diffuse. The quality of the pain is achy and colicky. These symptoms occur after meals. Aggravating factors include food. The denies relieving factors. Associated symptoms include bloating, eructation, heartburn and nausea. Pertinent negatives include blood in stool, constipation, dyspnea and flatulence. Additional information: mostly located RUQ however will "feel" food travel throughout the abd. Breast lump Discovered 1 wee k ago. [...]
--- OUTSIDE RECORDS SUMMARY | 2023-04-09 23:53 | External Medical Summary ---
Author Name Unknown Organization K01:[facility], [address] [address] Support Name Relationship Address Phone GILBERT BRIZUELA DO PROV Unknown Unavaila ble Laboratory Report Ordering Provider Test Date Status GILBERT BRIZUELA DO 03/09/2011 10:020400 Final Obs # Observation Date Value ABNL Reference Status Pe rforming Location 1 Amphetamines, Urine 14:08-0 400 NOT DETECTED XDET Final 2 Barbiturates, Urine 14:08-0 400 NOT DETECTED XDET Final 3 Benzodiazepines 14:08-0 400 NOT DETECTED XDET Final 4 Cannabinoids screen 14:08-0 400 NOT DETECTED XDET Final 5 Cocaine, screen 14:08-0 400 NOT DETECTED XDET Final 6 Methadone 14:08-0 400 NOT DETECTED XDET Final 7 Opiates 14:08-0 400 NOT DETECTED XDET Final 8 Phencyclidine 14:08-0 400 NOT DETECTED XDET Final 9 Propoxyphene 14:08-0 400 NOT DETECTED XDET Final 10 GAURI comment 14:08-0 400 SCREENING RESULTS QUALITATIVELY IDENTIFY DRUGS LISTED IN THE GML USER'S MANUAL FOR THE SPECIMEN TYPE INDICATED. RESULTS ARE PRESUMPTIVE UNLESS RETESTED BY A CONFIRMATORY METHOD. CONTACT TOXICOLOGY SERVICE FOR INFORMATION ON CONFIRMATORY TESTING. Final 11 GAURI comment 14:08-0 400 Final 12 DETECTION LIMIT 14:08-0 400 Final 13 DETECTION LIMIT 14:08-0 400 AMPHETAMINES 500 ng/ml Final 14 DETECTION LIMIT 14:08-0 400 BARBITURATES 200 ng/mL Final 15 DETECTION LIMIT 14:08-0 400 BENZODIAZEPINES 100 ng/mL Final 16 DETECTION LIMIT 14:08-0 400 CANNABINOIDS 50 ng/mL Final 17 DETECTION LIMIT 14:08-0 400 COCAINE METABOLITE 300 ng/mL Final 18 DETECTION LIMIT 14:08-0 400 METHADONE 300 ng/mL Final 19 DETECTION LIMIT 14:08-0 400 OPIATES 300 ng/mL Final 20 DETECTION LIMIT 14:08-0 400 PCP 25 ng/mL Final 21 DETECTION LIMIT 14:08-0 400 PROPOXYPHENE 300 ng/mL Final
--- OUTSIDE RECORDS SUMMARY | 2023-04-09 23:53 | External Medical Summary ---
Author Name Unknown Organization K01:[facility], [address] [id number] Support Name Relationship Address Phone ALEJANDRINA MORA MD PROV Unknown Unavailabl e Laboratory Report Ordering Provider Test Date Status ALEJANDRINA MORA MD 11/20/2010 14:27-0400 Final Obs # Observation Date Value ABNL Reference Status Pe rforming Location 1 T4, Free 11/21/2010 02:44-0400 1.34 0.7-1.7 ng/dL Final
--- OUTSIDE RECORDS SUMMARY | 2023-04-09 23:53 | External Medical Summary ---
Author Name Unknown Organization K01:[facility], [address] [facility] [address] Support Name Relationship Address Phone SUYAPA PRADO MD PROV Unknown Unavailab le Laboratory Report Ordering Provider Test Date Status SUYAPA PRADO MD 11/20/2010 13:25-0400 Final Obs # Observation Date Value ABNL Reference Status Pe rforming Location 1 WBC 11/20/2010 18:04-0400 7.96 4.00-10.80 K/uL Final 2 RBC 11/20/2010 18:04-0400 4.57 3.85-5.15 M/uL Final 3 HGB 11/20/2010 18:04-0400 12.0 12.0-14.5 g/dL Final 4 HCT 11/20/2010 18:04-0400 37.9 36.0-44.5 % Final 5 MCV 11/20/2010 18:04-0400 82.9 81.5-97.5 fL Final 6 MCH 11/20/2010 18:04-0400 26.3 L 27.0-34.0 pg Final 7 MCHC 11/20/2010 18:04-0400 31.7 L 32.0-36.0 g/dL Final 8 RDW 11/20/2010 18:04-0400 17.6 H 11.5-15.5 % Final 9 PLT 11/20/2010 18:04-0400 469 H 140-400 K/uL Final 10 MPV 11/20/2010 18:04-0400 10.0 6.6-11.1 fL Final 11 Segs 11/20/2010 18:04-0400 59 40-75 % Final 12 Lymph 11/20/2010 18:04-0400 31 18-42 % Final 13 [place] 11/20/2010 18:04-0400 8 1-11 % Final 14 Eosinophils 11/20/2010 18:04-0400 1 0-6 % Final 15 Baso 11/20/2010 18:04-0400 1 0-2 % Final 16 Neutrophils, Segmented 11/20/2010 18:-0400 4.78 1.8-7.7 K/uL Final 17 Abs. Lymphs 11/20/2010 18:-0400 2.44 1.0-4.8 K/uL Final 18 Abs. Monos 11/20/2010 18:-0400 0.62 0.0-1.1 K/uL Final 19 ABS. EOS 11/20/2010 18:-0400 0.06 0.0-0.7 K/uL Final 20 Abs. Baso 11/20/2010 18:04-0400 0.04 0.0-0.2 K/uL Final
--- OUTSIDE RECORDS SUMMARY | 2023-04-09 23:53 | External Medical Summary | Summary of Care ---
Author Name Unknown Organization [facility] ([facility]) Address [place], [place] [address] Care Team Providers Care Drug Abuse Counselor Name Role Phone Maria Alejandra Gonzalez DO Primary Care Provider [phone] Reason for Visit * Reason Comments General Correspondence Encounter Details Date Type Department Care Team Description 06/20/2018 Telephone [facility] [address] [place] [address] Loan Interviewer Mortgage: Shalini Perez Sarah L, DO [address] [place] [address] General Correspondence Medications Medication Sig Dispensed Refills Start Date End Date Status LORazepam (ATIVAN) 0.5 mg oral tablet Take 1 tablet by mouth daily 6 tablet 0 02/26/2018 Active as of this encounter Social History Tobacco Use Types Packs/Day Years Used Date Current Every Day Smoker Cigarettes Smokeless Tobacco: Never Used Alcohol Use Drinks/Week oz/Week Comments No Sex Assigned at Date Recorded Not on file Job Start Date Occupation Industry Not on file Not on file Not on file Travel History Travel Start Travel End as of this encounter Plan of Treatment Health Maintenance Due Date Last Done Comments Prevnar/PCV-13 (1 - PCV13 Required) 1954 TDAP 10/11/1963 TETANUS DIPHTHERIA 10/11/1963 PAP SMEAR 1973 FULL BODY SKIN EXAM 10/11/1987 COLONOSCOPY 2002 MAMMOGRAM 2002 SHINGLES VACCINE (Recombinant) (1 of 2) 2002 ADVANCE DIRECTIVES 2017 DEXA SCAN 5 YEAR 2017 HEARING SCREENING 2017 PNEUMOVAX/PPSV-23 (1) 2017 VISION SCREENING ADULT 2017 FLU SHOT 03/05/2018 CHOLESTEROL SCREENING 04/17/2023 04/17/2018, 018 HEPATITIS C SCREEN Completed 04/09/2018 as of this encounter Insurance Payer Benefit Plan / Group Subscriber ID Type Phone Address [facility] [employer] xxxxxxxxxxx [phone] [address] [place] [address] [facility] xxxxxxxxxxx [address] [place] [address] as of this encounter
--- OUTSIDE RECORDS SUMMARY | 2023-04-09 23:53 | External Medical Summary ---
Author Name Unknown Organization K01:[facility], [address] [id number] Support Name Relationship Address Phone GILBERT BRIZUELA DO PROV Unknown Unavaila ble Laboratory Report Ordering Provider Test Date Status GILBERT BRIZUELA DO 03/09/2011 10:020400 Final Obs # Observation Date Value ABNL Reference Status Pe rforming Location 1 Lipase 03/09/2011 15:460 63 16-63 U/L Final
--- OUTSIDE RECORDS SUMMARY | 2023-04-09 23:53 | External Medical Summary ---
Author Name Unknown Organization K01:[facility], [address] [id number] Support Name Relationship Address Phone ALEJANDRINA MORA MD PROV Unknown Unavailabl e Laboratory Report Ordering Provider Test Date Status ALEJANDRINA MORA MD 02/15/2011 14:12-0400 Final Obs # Observation Date Value ABNL Reference Status Pe rforming Location 1 Cortisol 02/16/2011 03:17-0400 12.5 ug/dL Final 2 Cortisol 02/16/2011 03:17-0400 PM REFERENCE RANGE 2.3-11.9 ug/dL Final
--- OUTSIDE RECORDS SUMMARY | 2023-04-09 23:53 | External Medical Summary ---
Author Name Unknown Organization K01:[facility], [address] [facility] [address] Support Name Relationship Address Phone GILBERT BRIZUELA DO PROV Unknown Unavaila ble Laboratory Report Ordering Provider Test Date Status GILBERT BRIZUELA DO 03/09/2011 10: Final Obs # Observation Date Value ABNL Reference Status Pe rforming Location 1 WBC 03/09/2011 14:16-0400 7.74 4.00-10.80 K/uL Final 2 RBC 03/09/2011 14:16-0400 4.31 3.85-5.15 M/uL Final 3 HGB 03/09/2011 14:16-0400 11.8 L 12.0-14.5 g/dL Final 4 HCT 03/09/2011 14:16-0400 36.1 36.0-44.5 % Final 5 MCV 03/09/2011 14:16-0400 83.8 81.5-97.5 fL Final 6 MCH 03/09/2011 14:16-0400 27.4 27.0-34.0 pg Final 7 MCHC 03/09/2011 14:16-0400 32.7 32.0-36.0 g/dL Final 8 RDW 03/09/2011 14:16-0400 17.0 H 11.5-15.5 % Final 9 PLT 03/09/2011 14:16-0400 405 H 140-400 K/uL Final 10 MPV 03/09/2011 14:16-0400 9.7 6.6-11.1 fL Final 11 Segs 03/09/2011 14:16-0400 64 40-75 % Final 12 Lymph 03/09/2011 14:16-0400 28 18-42 % Final 13 Martin 03/09/2011 14:16-0400 7 1-11 % Final 14 Eosinophils 03/09/2011 14:16-0400 0 0-6 % Final 15 Baso 03/09/2011 14:16-0400 1 0-2 % Final 16 Neutrophils, Segmented 03/09/2011 14:16-0400 4.91 1.8-7.7 K/uL Final 17 Abs. Lymphs 03/09/2011 14:16-0400 2.18 1.0-4.8 K/uL Final 18 Abs. Monos 03/09/2011 14:16-0400 0.55 0.0-1.1 K/uL Final 19 ABS. EOS 03/09/2011 14:16-0400 0.03 0.0-0.7 K/uL Final 20 Abs. Baso 03/09/2011 14:16-0400 0.05 0.0-0.2 K/uL Final
--- OUTSIDE RECORDS SUMMARY | 2023-04-09 23:53 | External Medical Summary | Summary of Care ---
Author Name Unknown Organization [place] [address] Care Team Providers Care Parliamentary Librarian Name Role Phone Unavailable Primary Care Provider [...] as of this encounter (statuses as of 02/04/2019) Medications Medication Sig Dispensed Refills Start Date [...] as of this encounter (statuses as of 02/04/2019) Active Problems Problem Noted Date History of [...] as of this encounter (statuses as of 02/04/2019) Resolved Problems Problem Noted Date Resolved Date [...] as of this encounter (statuses as of 02/04/2019) Social History Tobacco Use Types Packs/Day Years [...] 05/17/2010, 02/11/2009 LUNG CANCER SCREENING YEARLY-USE SMARTSET 00675 02/17/2013 02/18/2012 *BASIC METABOLIC PANEL (BMP) FOR [...] on File Type Date Recorded Patient Manager Production Expl anation Advanced Directive service a gadiel default Advanced Directive Advanced Directive Advanced Directive Advanced Directive Advanced Directive Advanced Directive Advanced Directive Advanced Directive Advanced Directive Advanced Directive Advanced Directive
--- OUTSIDE RECORDS SUMMARY | 2023-04-09 23:53 | External Medical Summary ---
Author Name Unknown Organization K01:[facility], [address] [facility] [address] Support Name Relationship Address Phone ALEJANDRINA MORA MD PROV Unknown Unavailabl e Laboratory Report Ordering Provider Test Date Status ALEJANDRINA MORA MD 11/20/2010 13:21-0400 Final Obs # Observation Date Value ABNL Reference Status Pe rforming Location 1 WBC 11/20/2010 17:45-0400 7.96 4.00-10.80 K/uL Final 2 RBC 11/20/2010 17:45-0400 4.57 3.85-5.15 M/uL Final 3 HGB 11/20/2010 17:45-0400 12.0 12.0-14.5 g/dL Final 4 HCT 11/20/2010 17:45-0400 37.9 36.0-44.5 % Final 5 MCV 11/20/2010 17:45-0400 82.9 81.5-97.5 fL Final 6 MCH 11/20/2010 17:45-0400 26.3 L 27.0-34.0 pg Final 7 MCHC 11/20/2010 17:45-0400 31.7 L 32.0-36.0 g/dL Final 8 RDW 11/20/2010 17:45-0400 17.6 H 11.5-15.5 % Final 9 PLT 11/20/2010 17:45-0400 469 H 140-400 K/uL Final 10 MPV 11/20/2010 17:45-0400 10.0 6.6-11.1 fL Final 11 Segs 11/20/2010 17:45-0400 59 40-75 % Final 12 Lymph 11/20/2010 17:45-0400 31 18-42 % Final 13 Butts 11/20/2010 17:45-0400 8 1-11 % Final 14 Eosinophils 11/20/2010 17:45-0400 1 0-6 % Final 15 Baso 11/20/2010 17:45-0400 1 0-2 % Final 16 Neutrophils, Segmented 11/20/2010 17:45-0400 4.78 1.8-7.7 K/uL Final 17 Abs. Lymphs 11/20/2010 17:45-0400 2.44 1.0-4.8 K/uL Final 18 Abs. Monos 11/20/2010 17:45-0400 0.62 0.0-1.1 K/uL Final 19 ABS. EOS 11/20/2010 17:45-0400 0.06 0.0-0.7 K/uL Final 20 Abs. Baso 11/20/2010 17:45-0400 0.04 0.0-0.2 K/uL Final
--- OUTSIDE RECORDS SUMMARY | 2023-04-09 23:53 | External Medical Summary | Summary of Care ---
Author Name Unknown Organization [place] [address] Phone Care Team Providers Care Pit Tanner Name Role Phone Hernandez Claire MD Primary Care Provider [phone] Encounter Details Date Type Department Care Team Description 12/03/[address] [facility] [facility] [address] [place] [address] Requisition, External Radiology [address] [place] [address] Lump of breast, left*;Internal bleeding;Lump of left breast Allergies Active Allergy Reactions Severity Noted Date [...] a day 120 Tab 0 03/09/2013 Active as of this encounter Active Problems Problem Noted Date Suicide attempt by acetaminophen overdos e ([facility]) 01/25/2012 Schizoaffective disorder ([facility]) 2 Overweight (BMI 25.0-29.9) 08/21/2011 Overview: BMI= 26.34 08/21/11 Chronic pain disorder 08/21/2011 Posttraumatic stress disorder 08/21/2011 Bipolar I disorder, most recent episode manic, moderate ([facility]) 08/21/2011 Tobacco use disorder 08/21/2011 Anxiety state 04/03/2011 History of nonadherence to medical treat ment 04/03/2011 Irritable bowel syndrome 04/03/2011 VENOUS THROMBOSIS LEFT LEG- RECURRENT HTN, goal below 140/90 09/08/2008 Drug dependence, abuse ([facility]) Overview: tramadol as of this encounter Resolved Problems Problem Noted Date Resolved Date Fibromyalgia 08/21/2011 01/25/2012 Myalgia and myositis 04/03/2011 01/25/2012 Other specified drug dependence, continuous 03/0701/25/2012 Tachycardia 12/08/2010 01/25/2012 Anticoagulation management encounter 05/02/2009 06/19/2010 Venous thrombosis 05/02/2009 05/04/2009 ACTIVE CASE MANAGEMENT 05/02/2009 0 Overview: D/c'd from [facility] 05/01/09,DVT, many questions and concers regarding Lovenox and coumadin. Posttraumatic stress disorder 03/08/2009 Esophageal reflux 03/08/2009 12/08/2010 Bipolar I disorder, most rec ent episode manic, moderate ([facility]) 09/08/2008 08/21/2011 as of this encounter Social History Tobacco Use Types Packs/Day Years Used Date Current Every Day Smoker Cigarettes 1.5 37 Smokeless Tobacco: Never Used Alcohol Use Drinks/Week oz/Week Comments No quit 3 yrs ago Sex Assigned at Date Recorded Not on file as of this encounter Plan of Treatment Scheduled Tests Name Priority Associated Diagnoses Order S chedule MAMMOGRAM, DIAGNOSTIC, BILAT Routine Lump of breast, left Ordered: 12/03/2016 BREAST-UNILATERAL LIMITED Routine Internal bleeding Lump of breast, left Lump of left breast Ordered: 12/04/2016 US BREAST-UNILATERAL LIMITED Routine Internal bleeding Lump of breast, left Lump of left breast Ordered: 12/04/2016 Health Maintenance Due Date Last Done Comments DTaP,Tdap,and Td Vaccines (1 - Tdap) 10/11/1971 BREAST CANCER SCREENING DISC USSION YEARLY AGES 40-75 05/23/2011 05/23/2010, 05/17/2010, 02/11/2009 LUNG CANCER SCREENING YEARLY -USE SMARTSET 36319 02/17/2013 02/18/2012 *BASIC METABOLIC PANEL (BMP) FOR HTN YEARLY 08/10/2014 *DEPRESSION SCREENING, DAMION Bartholomew FOR PTS 18 AND OVER 09/05/2014 LIPID SCREEN EVERY 5 YRS-WOM EN AGE 45-75 11/07/2014 11/07/2009, 09/30/2008, 02/23/2008 DIABETES SCREEN EVERY 3 YRS- AGE 45 AND ABOVE 04/14/2015 04/14/2012, 02/18/2012, 03/09/2011, Additional history exists PNEUMOCOCCAL ADULT 65 YRS AN D OVER (1 of 2 - PCV13) 2017 Influenza Vaccine (FLU shot) (Season Ended) 2018 as of this encounter Implants Not on fileas of this encounter Visit Diagnoses Diagnosis Lump of breast, left - Prima ry Lump or mass in breast Internal bleeding Lump of left breast Lump or mass in breast in this encounter
--- OUTSIDE RECORDS SUMMARY | 2023-04-09 23:53 | External Medical Summary | Summary of Care ---
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 Name Role Phone Hernandez Claire MD Primary Care Provider [phone] Reason for Visit * Reason Comments Previsit Planning Encounter Details Date Type Department Care Team Description 05/16/2018 Telephone Located Within [facility] [address] [place] [address] Hernandez Claire MD [address] [place] [address] [phone] Previsit Planning Allergies Active Allergy Reactions Severity [...] Date Suicide attempt by acetaminophen overdos e ([facility]) 01/25/2012 Schizoaffective disorder ([facility]) 2 Overweight (BMI 25.0-29.9) 08/21/2011 Overview: BMI= 26.34 08/21/11 Chronic pain disorder 08/21/2011 Posttraumatic stress disorder 08/21/2011 Bipolar I disorder, most recent episode manic, moderate ([facility]) 08/21/2011 Tobacco use disorder 08/21/2011 Anxiety state 04/03/2011 History of nonadherence to medical treat ment 04/03/2011 Irritable bowel syndrome 04/03/2011 VENOUS THROMBOSIS LEFT LEG- RECURRENT HTN, goal below 140/90 09/08/2008 Drug dependence, abuse ([facility]) Overview: tramadol as of this encounter Resolved Problems Problem Noted Date Resolved Date Fibromyalgia 08/21/2011 01/25/2012 Myalgia and myositis 04/03/2011 01/25/2012 Other specified drug dependence, continuous 03/0701/25/2012 Tachycardia 12/08/2010 01/25/2012 Anticoagulation management encounter 05/02/2009 06/19/2010 Venous thrombosis 05/02/2009 05/04/2009 ACTIVE CASE MANAGEMENT 05/02/2009 0 Overview: D/c'd from [facility] 05/01/09,DVT, many questions and concers regarding Lovenox and coumadin. Posttraumatic stress disorder 03/08/2009 Esophageal reflux 03/08/2009 12/08/2010 Bipolar I disorder, most rec ent episode manic, moderate ([facility]) 09/08/2008 08/21/2011 as of this encounter Social History Tobacco Use Types Packs/Day Years Used Date Current Every Day Smoker Cigarettes 1.5 37 Smokeless Tobacco: Never Used Alcohol Use Drinks/Week oz/Week Comments No quit 3 yrs ago Sex Assigned at Date Recorded Not on file as of this encounter Miscellaneous Notes * Telephone Encounter - Stefano Michael Michael, MED ASSIST - 05/16/2018 8:16 AM EDT Formatting of this note may be different from the original. Patient contacted for Care Gaps Comprehensive Care Outreach. Last Office Visit: 03/16/2013 Outreach action taken: Contacted: Left message Health Maintenance Due Topic Date Due DTaP,Tdap,and Td Vaccines (1 - Tdap) 10/11/1971 BREAST CANCER SCREENING DISCUSSION YEARLY AGES 40-75 05/23/2011 LUNG CANCER SCREENING YEARLY-USE SMARTSET 02663 02/17/2013 *BASIC METABOLIC PANEL (BMP) FOR HTN YEARLY 08/10/2014 *DEPRESSION SCREENING, ANNUAL FOR PTS 18 AND OVER 09/05/2014 LIPID SCREEN EVERY 5 YRS-WOMEN AGE 45-75 11/07/2014 DIABETES SCREEN EVERY 3 YRS-AGE 45 AND ABOVE 04/14/2015 DXA-SCREENING EVERY 7 YRS-USE SMARTSET# 3348 TO ORDER 2017 PNEUMOCOCCAL ADULT 65 YRS AND OVER (1 of 2 - PCV13) 2017 Influenza Vaccine (FLU shot) (1) 03/05/2018 in this encounter Plan of Treatment Health Maintenance Due Date Last Done Comments DTaP,Tdap,and Td Vaccines (1 - Tdap) 10/11/1971 BREAST CANCER SCREENING DISC USSION YEARLY AGES 40-75 05/23/2011 05/23/2010, 05/17/2010, 02/11/2009 LUNG CANCER SCREENING YEARLY -USE SMARTSET 30851 02/17/2013 02/18/2012 *BASIC METABOLIC PANEL (BMP) FOR HTN YEARLY 08/10/2014 *DEPRESSION SCREENING, ANNUA L FOR PTS 18 AND OVER 09/05/2014 LIPID SCREEN EVERY 5 YRS-WOM EN AGE 45-75 11/07/2014 11/07/2009, 09/30/2008, 02/23/2008 DIABETES SCREEN EVERY 3 YRS- AGE 45 AND ABOVE 04/14/2015 04/14/2012, 02/18/2012, 03/09/2011, Additional history exists DXA-SCREENING EVERY 7 YRS-US E SMARTSET# 3348 TO ORDER 2017 PNEUMOCOCCAL ADULT 65 YRS AN D OVER (1 of 2 - PCV13) 2017 Influenza Vaccine (FLU shot) (#1) 2018 as of this encounter Implants Not on fileas of this encounter
--- OUTSIDE RECORDS SUMMARY | 2023-04-09 23:53 | External Medical Summary ---
Author Name Unknown Organization K01:[facility], [address] [address] Support Name Relationship Address Phone GILBERT BRIZUELA DO PROV Unknown Unavaila ble Laboratory Report Ordering Provider Test Date Status AIDANGILBERT SCHRADER DO 03/23/2011 14:04-0400 Final Obs # Observation Date Value ABNL Reference Status Pe rforming Location 1 Specimen site 03/23/2011 20:27-0400 Final PRESERVED STOOL E.COLI SHIGA TOXIN 1 AND E.COLI SHIGA TOXIN 2 NOT DETECTED. NO SALMONELLA, SHIGELLA OR CAMPYLOBACTER ISOLATED FINAL
--- OUTSIDE RECORDS SUMMARY | 2023-04-09 23:54 | External Medical Summary ---
Author Name Unknown Organization [facility] tem Support Name Relationship Address Phone Unavailable PROV Unknown Unavailable Laboratory Report Ordering Provider Test Date Status 05/11/2010 16:04-0400 F Obs # Observation Date Value ABNL Reference Status Pe rforming Location 1 Hgb A1c Fr Bld 05/11/2010 23:18-0400 5.6 3.4-6.4 % Final 2 Mean Glucose Bld [facility] Est-mCnc 05/11/2010 23:18-0400 114 <126 MG/DL Final
--- OUTSIDE RECORDS SUMMARY | 2023-04-09 23:54 | External Medical Summary ---
Author Name Unknown Organization [employer] [facility] tem Support Name Relationship Address Phone ALEJANDRINA MORA MD PROV Unknown Unavailabl e Laboratory Report Ordering Provider Test Date Status ALEJANDRINA MORA MD 07/24/2010 15:44-0500 F Obs # Observation Date Value ABNL Reference Status Pe rforming Location 1 BUN SerPl-nc 07/24/2010 22:14-0500 18 6-20 mg/dL Final 2 Creat SerPl-mCnc 07/24/2010 22:14-0500 0.6 L 0.7-1.5 mg/dL Final 3 Sodium SerPl-sCnc 07/24/2010 22:14-0500 130 L 135-146 mmol/L Final 4 Potassium SerPl-sCnc 07/24/2010 22:14-0500 4.7 3.5-5.1 mmol/L Final 5 Chloride SerPl-sCnc 07/24/2010 22:14-0500 93 L 98-111 mmol/L Final 6 CO2 SerPl-sCnc 07/24/2010 22:14-0500 23 22-32 mmol/L Final 7 Glucose SerPl-nc 07/24/2010 22:14-0500 88 70-120 mg/dL Final 8 Anion Gap SerPl-sCnc 07/24/2010 22:14-0500 14 7-15 mEq/L Final 9 Calcium SerPl-mCnc 07/24/2010 22:14-0500 9.9 8.3-10.5 mg/dL Final 10 Pred GFR SerPl MDRD-vRate 07/24/2010 22:14-0500 >60.0 >60 mL/min Final
--- OUTSIDE RECORDS SUMMARY | 2023-04-09 23:54 | External Medical Summary ---
Author Name Unknown Organization [employer] [facility] tem Support Name Relationship Address Phone ALEJANDRINA MORA MD PROV Unknown Unavailabl e Laboratory Report Ordering Provider Test Date Status ALEJANDRINA MORA MD 07/24/2010 15:43-0500 F Obs # Observation Date Value ABNL Reference Status Pe rforming Location 1 Ammonia Plas-sCnc 07/25/2010 14:11-0500 79 H 11-38 umol/L Final
--- OUTSIDE RECORDS SUMMARY | 2023-04-09 23:54 | External Medical Summary ---
Author Name Unknown Organization [employer] [facility] tem Support Name Relationship Address Phone ALEJANDRINA MORA MD PROV Unknown Unavailabl e Laboratory Report Ordering Provider Test Date Status ALEJANDRINA MORA MD 07/05/2010 15:01-0500 F Obs # Observation Date Value ABNL Reference Status Pe rforming Location 1 Magnesium SerPl-mCnc 07/05/2010 16:17-0500 2.0 1.4-2.8 mg/dL Final
--- OUTSIDE RECORDS SUMMARY | 2023-04-09 23:54 | External Medical Summary ---
Author Name Unknown Organization K09:[address] , [place] [address] Support Name Relationship Address Phone ALEJANDRINA MORA MD PROV Unknown Unavailabl e Laboratory Report Ordering Provider Test Date Status ALEJANDRINA MORA MD 08/31/2010 12:00-0500 Final Obs # Observation Date Value ABNL Reference Status Pe rforming Location 1 FOBT (EIA) 09/01/2010 11:21-0500 NEGATIVE NEG Final
--- OUTSIDE RECORDS SUMMARY | 2023-04-09 23:54 | External Medical Summary ---
Author Name Unknown Organization K01:[facility], [address] [id number] Support Name Relationship Address Phone ALEJANDRINA MORA MD PROV Unknown Unavailabl e Laboratory Report Ordering Provider Test Date Status ALEJANDRINA MORA MD 11/20/2010 13:21-0400 Final Obs # Observation Date Value ABNL Reference Status Pe rforming Location 1 Lipase 11/20/2010 17:33-0400 55 16-63 U/L Final
--- OUTSIDE RECORDS SUMMARY | 2023-04-09 23:54 | External Medical Summary ---
Author Name Unknown Organization K09:[facility], [address], [place] [address] Support Name Relationship Address Phone SUYAPA PRADO MD PROV Unknown Unavailab le Laboratory Report Ordering Provider Test Date Status SUYAPA PRADO MD 11/20/2010 13:25-0400 Final Obs # Observation Date Value ABNL Reference Status Pe rforming Location 1 Albumin, Serum 11/20/2010 16:58-0400 4.2 3.8-5.0 g/dL Final 2 AST (Aspartate aminotransferase) 11/20/2010 16:58-0400 19 10-35 U/L Final 3 Alk Phos 11/20/2010 16:58-0400 87 25-125 U/L Final 4 ALT (Alanine aminotransferase) 11/20/2010 16:58-0400 15 10-35 U/L Final 5 Bilirubin, Total 11/20/2010 16:58-0400 0.1 L 0.3-1.3 mg/dL Final 6 Bilirubin, Direct 11/20/2010 16:58-0400 <0.2 0-0.3 mg/dL Final 7 Protein 11/20/2010 16:58-0400 7.4 6.0-8.3 g/dL Final
--- OUTSIDE RECORDS SUMMARY | 2023-04-09 23:54 | External Medical Summary ---
Author Name Unknown Organization [employer] [facility] tem Support Name Relationship Address Phone ALEJANDRINA MORA MD PROV Unknown Unavailabl e Laboratory Report Ordering Provider Test Date Status ALEJANDRINA MORA MD 07/24/2010 15:44-0500 F Obs # Observation Date Value ABNL Reference Status Pe rforming Location 1 Valproate SerPl-[facility] 07/24/2010 22:14-0500 55 50-100 ug/mL Final
--- OUTSIDE RECORDS SUMMARY | 2023-04-09 23:54 | External Medical Summary ---
Author Name Unknown Organization [employer] [facility] tem Support Name Relationship Address Phone Unavailable PROV Unknown Unavailable Laboratory Report Ordering Provider Test Date Status 05/11/2010 16:040400 F Obs # Observation Date Value ABNL Reference Status Pe rforming Location 1 BUN SerPl-[facility] 05/11/2010 23:11-0400 19 6-20 mg/dL Final 2 Creat SerPl-mCnm 05/11/2010 23:11-0400 0.6 L 0.7-1.5 mg/dL Final 3 Sodium SerPl-[facility] 05/11/2010 23:11-0400 127 L 135-146 mmol/L Final 4 Potassium SerPl-sCnc 05/11/2010 23:11-0400 5.0 3.5-5.1 mmol/L Final 5 Chloride SerPl-sCn 05/11/2010 23:11-0400 94 L 98-111 mmol/L Final 6 CO2 SerPl-sCnc 05/11/2010 23:11-0400 19 L 22-32 mmol/L Final 7 Glucose SerPl-[facility] 05/11/2010 23:11-0400 92 70-120 mg/dL Final 8 Anion Gap SerPl-sCnc 05/11/2010 23:11-0400 14 7-15 mEq/L Final 9 Calcium SerPl-nc 05/11/2010 23:11-0400 9.5 8.3-10.5 mg/dL Final 10 Pred GFR SerPl MDRD-vRate 05/11/2010 23:11-0400 >60.0 >60 mL/min Final
--- OUTSIDE RECORDS SUMMARY | 2023-04-09 23:54 | External Medical Summary ---
Author Name Unknown Organization K09:[facility], [address] , [place] [address] Support Name Relationship Address Phone SUYAPA PRADO MD PROV Unknown Unavailab le Laboratory Report Ordering Provider Test Date Status SUYAPA PRADO MD 11/20/2010 13:24-0400 Final Obs # Observation Date Value ABNL Reference Status Pe rforming Location 1 Glucose, fasting 11/20/2010 16:30-0400 101 H 70-99 mg/dL Final 2 Glucose, fasting 11/20/2010 16:30-0400 Final 3 Glucose, fasting 11/20/2010 16:30-0400 PER ADA GUIDELINES: Final 4 Glucose, fasting 11/20/2010 16:30-0400 FPG <100 MG/DL = NORMAL Final 5 Glucose, fasting 11/20/2010 16:30-0400 FPG 100-125 MG/DL = IMPAIRED Final 6 Glucose, fasting 11/20/2010 16:30-0400 FPG >=126 MG/DL = DIABETIC Final
--- OUTSIDE RECORDS SUMMARY | 2023-04-09 23:54 | External Medical Summary ---
Author Name Unknown Organization [employer] [facility] tem Support Name Relationship Address Phone ALEJANDRINA MORA MD PROV Unknown Unavailabl e Laboratory Report Ordering Provider Test Date Status ALEJANDRINA MORA MD 07/05/2010 15:01-0500 F Obs # Observation Date Value ABNL Reference Status Pe rforming Location 1 BUN SerPl-[facility] 07/05/2010 16:17-0500 17 6-20 mg/dL Final 2 Creat SerPl-mCnc 07/05/2010 16:17-0500 0.5 L 0.7-1.5 mg/dL Final 3 Sodium SerPl-sCnc 07/05/2010 16:17-0500 126 L 135-146 mmol/L Final 4 Potassium SerPl-sCnc 07/05/2010 16:17-0500 4.1 3.5-5.1 mmol/L Final 5 Chloride SerPl-sCnc 07/05/2010 16:17-0500 90 L 98-111 mmol/L Final 6 CO2 SerPl-sCnc 07/05/2010 16:17-0500 21 L 22-32 mmol/L Final 7 Glucose SerPl-nc 07/05/2010 16:17-0500 87 70-120 mg/dL Final 8 Anion Gap SerPl-sCnc 07/05/2010 16:17-0500 15 7-15 mEq/L Final 9 Calcium SerPl-mCnc 07/05/2010 16:17-0500 9.3 8.3-10.5 mg/dL Final 10 Pred GFR SerPl MDRD-vRate 07/05/2010 16:17-0500 >60.0 >60 mL/min Final
--- OUTSIDE RECORDS SUMMARY | 2023-04-09 23:54 | External Medical Summary ---
Author Name Unknown Organization [employer] [facility] tem Support Name Relationship Address Phone ALEJANDRINA MORA MD PROV Unknown Unavailabl e Laboratory Report Ordering Provider Test Date Status ALEJANDRINA MORA MD 07/05/2010 15:0500 F Obs # Observation Date Value ABNL Reference Status Pe rforming Location 1 WBC # Bld 07/05/2010 15:-0500 11.48 H 4.00-10.80 K/uL Final 2 RBC # Bld 07/05/2010 15:0500 4.30 3.85-5.15 M/uL Final 3 Hgb Bld-mCnc 07/05/2010 15:0500 13.0 12.0-14.5 g/dL Final 4 Hct Fr Bld 07/05/2010 15:0500 37.7 36.0-44.5 % Final 5 MCV RBC Qn 07/05/2010 15:-0500 87.7 81.5-97.5 fL Final 6 MCH RBC Qn 07/05/2010 15:-0500 30.2 27.0-34.0 pg Final 7 MCHC RBC-nc 07/05/2010 15:-0500 34.5 32.0-36.0 g/dL Final 8 RDW RBC Qn 07/05/2010 15:-0500 15.8 H 11.5-15.5 % Final 9 Platelet # Bld 07/05/2010 15:-0500 518 H 150-400 K/uL Final 10 PMV Bld Qn 07/05/2010 15:23-0500 8.7 6.6-11.1 fL Final
--- OUTSIDE RECORDS SUMMARY | 2023-04-09 23:54 | External Medical Summary ---
Author Name Unknown Organization [facility] tem Support Name Relationship Address Phone ALEJANDRINA MORA MD PROV Unknown Unavailabl e Laboratory Report Ordering Provider Test Date Status ALEJANDRINA MORA MD 07/05/2010 15:01-0500 F Obs # Observation Date Value ABNL Reference Status Pe rforming Location 1 T4 Free SerPl-mCnc 07/06/2010 04:49-0500 1.42 0.7-1.7 ng/dL Final
--- OUTSIDE RECORDS SUMMARY | 2023-04-09 23:54 | External Medical Summary ---
Author Name Unknown Organization [id number]:[address] , [place] [address] Support Name Relationship Address Phone ALEJANDRINA MORA MD PROV Unknown Unavailabl e Laboratory Report Ordering Provider Test Date Status ALEJANDRINA MORA MD 11/20/2010 13:21-0400 Final Obs # Observation Date Value ABNL Reference Status Pe rforming Location 1 Magnesium 11/20/2010 16:38-0400 2.1 1.4-2.8 mg/dL Final
--- OUTSIDE RECORDS SUMMARY | 2023-04-09 23:54 | External Medical Summary ---
Author Name Unknown Organization [employer] [facility] tem Support Name Relationship Address Phone ALEJANDRINA MORA MD PROV Unknown Unavailabl e Laboratory Report Ordering Provider Test Date Status ALEJANDRINA MORA MD 07/24/2010 15:44-0500 F Obs # Observation Date Value ABNL Reference Status Pe rforming Location 1 Osmolality SerPl Qn 07/24/2010 23:18-0500 280 278-305 mOsm/kg Final
--- OUTSIDE RECORDS SUMMARY | 2023-04-09 23:54 | External Medical Summary ---
Author Name Unknown Organization K09:[facility], [address] [facility] , [place] [address] Support Name Relationship Address Phone ALEJANDRINA MORA MD PROV Unknown Unavailabl e Laboratory Report Ordering Provider Test Date Status ALEJANDRINA MORA MD 11/20/2010 13:21-0400 Final Obs # Observation Date Value ABNL Reference Status Pe rforming Location 1 BUN 11/20/2010 16:38-0400 6 6-20 mg/dL Final 2 Creatinine 11/20/2010 16:38-0400 0.7 0.7-1.5 mg/dL Final 3 Sodium 11/20/2010 16:38-0400 131 L 135-146 mmol/L Final 4 Potassium 11/20/2010 16:38-0400 4.1 3.5-5.1 mmol/L Final 5 Cl 11/20/2010 16:38-0400 96 L 98-111 mmol/L Final 6 CO2 11/20/2010 16:38-0400 19 L 22-32 mmol/L Final 7 Glucose 11/20/2010 16:38-0400 98 70-120 mg/dL Final 8 Albumin, Serum 11/20/2010 16:38-0400 4.2 3.8-5.0 g/dL Final 9 AST (Aspartate aminotransferase) 11/20/2010 16:38-0400 19 10-35 U/L Final 10 Alk Phos 11/20/2010 16:38-0400 87 25-125 U/L Final 11 Bilirubin, Total 11/20/2010 16:38-0400 0.1 L 0.3-1.3 mg/dL Final 12 Calcium 11/20/2010 16:38-0400 9.6 8.3-10.5 mg/dL Final 13 Protein 11/20/2010 16:38-0400 7.4 6.0-8.3 g/dL Final 14 ALT (Alanine aminotransferase) 11/20/2010 16:38-0400 15 10-35 U/L Final 15 Anion gap 11/20/2010 16:38-0400 16 H 7-15 mmol/L Final 16 GFR / 1.73 sq M.predicted 11/20/2010 16:38-0400 >60.0 >60 mL/min Final
--- OUTSIDE RECORDS SUMMARY | 2023-04-09 23:54 | External Medical Summary ---
Author Name Unknown Organization [employer] [facility] tem Support Name Relationship Address Phone ALEJANDRINA MORA MD PROV Unknown Unavailabl e Laboratory Report Ordering Provider Test Date Status ALEJANDRINA MORA MD 07/05/2010 15:01-0500 F Obs # Observation Date Value ABNL Reference Status Pe rforming Location 1 [facility] 07/06/2010 04:49-0500 2.09 0.27-4.2 uIU/mL Final
== END 2023-04-05 15:43 | disposition home or self-care (01) | DRG 305 ==
LOC: ED 17:36 → SUATTDRO 04-04 05:19 → INTOOBSV 04-04 05:19 → EDINP 04-04 05:19 → 2N 04-04 07:26

== ENCOUNTER 2023-09-11 03:20 | Inpatient (IN) ==
[2023-09-11] MEDS: METOPROLOL TARTRATE 1 MG/ML VIAL IV STA (04:09)
[2023-09-11] MEDS: METOPROLOL SUCC 50MG EXT REL TAB PO STA (04:12)
[2023-09-11 04:40] LABS: Basophils # (auto) 0.05 K/uL (0.00-0.20); Basophils % (auto) 0.6 %; Eosinophils # (auto) 0.45 K/uL (0.00-0.50); Eosinophils % (auto) 5.8 %; Hematocrit (blood only) 42.5 % (37.0-47.0); Hemoglobin 14.5 g/dl (12.0-16.0); Immature Granulocytes # (auto) 0.02 K/uL (0.01-0.20); Immature Granulocytes % (auto) 0.3 %; Lymphocytes # (auto) 1.62 K/uL (1.20-3.40); Mean Corpuscular Hemoglobin 31.4 pg (25.0-34.0); Mean Corpuscular Hgb Conc 34.1 g/dL (32.0-36.0); Monocytes # (auto) 0.57 K/uL (0.11-0.59); Monocytes % (auto) 7.4 %; Neutrophils % (auto) 64.9 %; Platelet Count 321 K/uL (130-400); RDW Coefficient of Variation 12.2 % (11.5-14.5); RDW Standard Deviation 41.1 fL (36.4-46.3); Red Blood Count 4.62 M/uL (4.20-5.40); White Blood Count 7.71 K/ul (4.8-10.8)
[2023-09-11 04:58] LABS: Albumin Globulin Ratio 1.7 (0.9-2); Albumin Level 4.8 gm/dl (3.4-5.0); BUN Creatinine Ratio 9.9 (10-20); Bilirubin,Total 0.5 mg/dl (0.2-1.0); Calcium 9.6 mg/dl (8.6-10.3); Creatinine Clr Calc Pharmacy 65.3 ml/min; Est GFR (Non-African American) 86.3 ml/min; Globulin 2.9 gm/dl (2.5-4.0); Potassium 3.4 mmol/L (3.5-5.1); Total Protein 7.7 gm/dl (6.0-8.3)
--- NOTE | 2023-09-11 05:00 | Emergency Department Note ---
Impression & Plan Elevated troponin, Hypertensive urgency, Noncompliance with medication regimen Admit to the [facility] ED Provider Note NAME: ROBBY AGUILAR AGE: 72 SEX: Female INFORMANT: [Patient] ED PROVIDER(S): Faith Will DO CHIEF COMPLAINT: High blood pressure PLAN: Disposition: Admit to the [facility] MEDICAL DECISION MAKING: Patient explains that she began to feel unwell tonight and believes it is because her blood pressure is so high. 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 Presenting blood pressure reading was 225/126. EKG was unremarkable. Laboratory studies revealed no leukocytosis or anemia. Renal function was unremarkable. Glucose was normal. Patient was insistent that we give her the oral dose of metoprolol and that she be discharged. She was given an oral dose of metoprolol but I convinced her to stay so that we could treat her elevated blood pressure. She was given a dose of IV Lopressor which did bring the blood pressure down somewhat. Patient did have an elevated troponin. I explained this to the patient and she was willing to stay for admission to the hospital. I discussed the case with the [facility] and they will evaluate for further inpatient care. Patient at times wanted to leave the emergency department stating that she was done with being here and was frustrated with being poked and prodded but and then was finally willing to stay in the hospital. 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 Triage Nursing notes: [reviewed and agree with them]. Vital Signs: reviewed and remarkable for significant hypertension Chronic Medical/Social Conditions affecting care: severe hypertension Differential Diagnosis: Stemi; Nstemi; hypertensive urgency Diagnostics, independently interpreted by me: ECG: Normal sinus rhythm at a rate of [address] segment elevation or signs of ischemia. There is no ectopy. Cardiac Monitoring: NSR 75 Imaging studies: Portable chest x-ray: As per my independent interpretation-no pulmonary infiltrates or cardiomegaly HPI: 72 year old Female arrives for evaluation of feeling unwell. Patient believes that her blood pressure is significantly elevated because she has been unable to get her metoprolol prescription picked up. Patient has a history of hypertension and has been unable to get her medications. She described chest heaviness and head fullness. PAST MEDICAL HISTORY: [See Below], [] PAST SURGICAL HISTORY: [See Below], [] SOCIAL HISTORY: [See Below], [] HOME MEDICATIONS: See list ALLERGIES: See list VITALS: [See Below] PHYSICAL EXAMINATION: HEENT: Head - normocephalic and atraumatic Pupils are equal, round, and reactive to light. Extraocular eye muscles are intact, and sclera are anicteric. Nose - moist nasal mucosa without discharge. Mouth - moist buccal mucosa. Oropharynx is nonerythematous and there is no tonsillar exudate or edema noted. Neck: Supple; no JVD, nuchal rigidity, cervical lymphadenopathy, or auscultated bruits. Heart: Regular rate and rhythm. There is a normal S1 and S2 with no murmurs, clicks, or gallops appreciated. Lungs: Clear to auscultation bilaterally with no wheezes, rales, or rhonchi. Abdomen: Soft, completely nontender, nondistended, with good bowel sounds. There are no palpable pulsatile masses or hepatosplenomegaly. There is no guarding, rigidity, or rebound noted. Extremities: No evidence of cyanosis, clubbing, or edema. There are easily palpable peripheral pulses. Skin: warm and dry with good turgor and no rashes. Emergency department treatment: site monitor, oral metoprolol, IV Lopressor Emergency department course: The patient was evaluated in room A-3. A twelve- lead EKG was obtained as described above. An order was placed for continuous cardiac monitoring. Patient was in a normal sinus rhythm at a rate of 75. The patient was given her oral dose of metoprolol. She was then given an IV dose of Lopressor. I discussed the case with the [facility] and he will evaluate for further inpatient care. Past Med/Surg History Medical History Sedative, hypnotic or anxiolytic use disorder, severe, dependence benzodiazepines Opioid use disorder Schizoaffective disorder, bipolar type Cystic mass of pancreas DVT (deep venous thrombosis) High blood pressure Hypertensive urgency H/O drug abuse Tobacco abuse Hypertension COPD (chronic obstructive pulmonary disease) Posttraumatic stress disorder (01/14/13) Surgical History History of cystoscopy History of inferior vena caval filter placement Family History Father Myocardial infarction, Onset Age: 66 Diabetes Mother Stroke Colorectal cancer Other Family history non-contributory Social History Smoking Status: Current every day smoker Tobacco Type: E-cigarettes / Vaping Cigarettes Per Day: 1.5 PPD; Second Hand Exposure: No; Do You Dip or Chew Tobacco: No; Hx Alcohol Use: No Hx Substance Use: No Preferred Language: Palauan Communication Ability: Effective Communication Ability Comment: needs frequent redirection to stay on task Visual Impairment: No Limitations Hearing Ability: Normal Relocation Director Required: No Beliefs That Will Affect Care: None marital status: Single Current Living Situation: Alone Current Living Situation Comment: apartment poor living conditions and no electric Feels Safe at Home: Yes Assistive Devices: None Allergies Allergies Allergy/AdvReac Type Severity Reaction Status Date / Time atropine Allergy Severe castillo, hard Verified 09/11/23 08:20 time breathing clonidine Allergy Severe RAISES Verified 09/11/23 08:20 B.P., ANXIOUSNESS diphenhydramine Allergy Severe "I ALMOST Verified 09/11/23 08:20 ." hyoscyamine Allergy Severe castillo, hard Verified 09/11/23 08:20 time breathing labetalol Allergy Severe swelling,loss Verified 09/11/23 08:20 of taste,itch, rash phenobarbital Allergy Severe castillo, hard Verified 09/11/23 08:20 time breathing prednisone Allergy Severe Edema Verified 09/11/23 08:20 face,lips and tongue. scopolamine Allergy Severe castillo, hard Verified 09/11/23 08:20 time breathing enoxaparin Allergy Intermediate RASH Verified 09/11/23 08:20 levofloxacin Allergy Intermediate ARM TURNED Verified 09/11/23 08:20 "FIREY RED" WHEN INFUSED, CLEARED IN A FEW HOURS tramadol Allergy Intermediate blisters Verified 09/11/23 08:20 all over warfarin Allergy Intermediate rash Verified 09/11/23 08:20 chlorpromazine Allergy Mild TOLERATING Verified 09/11/23 08:20 PROLIXIN AT HOME 01/15/08 coumarin Allergy Unknown UNKNOWN Verified 09/11/23 08:20 naproxen Allergy Unknown Abdominal Verified 09/11/23 08:20 Pain Penicillins Allergy Unknown Unknown Verified 09/11/23 08:20 morphine AdvReac Severe SHOCK;TOLERATES Verified 09/11/23 08:20 DEMEROL/PASSED OUT amitriptyline AdvReac Intermediate Nausea/vomi Verified 09/11/23 08:20 timg amlodipine AdvReac Intermediate Hypotension Verified 09/11/23 08:20 aspirin AdvReac Intermediate BLEEDING Verified 09/11/23 08:20 codeine AdvReac Intermediate BP DROPS Verified 09/11/23 08:20 AND PASSES OUT dicyclomine AdvReac Intermediate GI SYMPTOMS Verified 09/11/23 08:20 hydralazine AdvReac Intermediate palpitations Verified 09/11/23 08:20 as per px ibuprofen AdvReac Intermediate BLEEDING/ED Verified 09/11/23 08:20 ELLIOT lisinopril AdvReac Intermediate COUGH Verified 09/11/23 08:20 nitrofurantoin AdvReac Intermediate hallucinati Verified 09/11/23 08:20 ng Home Meds Home Medications Medication Instructions Recorded Confirmed metoprolol succinate 50 mg 50 mg PO BID 07/22/23 09/11/23 tablet,extended release 24 hr Results & Data (ED) Vital Signs Vital Signs - 24 hr 09/11/23 03:30 09/11/23 03:31 09/11/23 03:31 Temperature 36.7 C Temperature Source Oral Pulse Rate 106 H 105 H Pulse Rate [Apical] Pulse Rate from SpO2 Sensor 106 H Pulse Rhythm [Apical] Pulse Strength [Apical] Respiratory Rate 18 13 Respiratory Effort / Characteristics Non-Labored Respiratory Depth Normal Respiratory Pattern Blood Pressure 225/126 H 225/126 H Blood Pressure [Right Arm] Blood Pressure Mean 163 159 Blood Pressure Mean [Right Arm] Pulse Oximetry 98 99 Oxygen Delivery Method Room Air Sepsis Recent Fever Within 48 Hours No Sepsis New/Unexplained Change in Mental Status N/A Sepsis Action Taken by Nursing No Action Required 09/11/23 03:33 09/11/23 03:40 09/11/23 03:50 Temperature Temperature Source Pulse Rate 110 H 105 H 103 H Pulse Rate [Apical] Pulse Rate from SpO2 Sensor Pulse Rhythm [Apical] Pulse Strength [Apical] Respiratory Rate 14 14 Respiratory Effort / Characteristics Respiratory Depth Respiratory Pattern Blood Pressure Blood Pressure [Right Arm] Blood Pressure Mean Blood Pressure Mean [Right Arm] Pulse Oximetry Oxygen Delivery Method Sepsis Recent Fever Within 48 Hours Sepsis New/Unexplained Change in Mental Status Sepsis Action Taken by Nursing 09/11/23 03:54 09/11/23 03:54 09/11/23 03:59 Temperature Temperature Source Pulse Rate 104 H Pulse Rate [Apical] Pulse Rate from SpO2 Sensor Pulse Rhythm [Apical] Pulse Strength [Apical] Respiratory Rate 13 Respiratory Effort / Characteristics Respiratory Depth Respiratory Pattern Blood Pressure 228/140 H Blood Pressure [Right Arm] Blood Pressure Mean 175 Blood Pressure Mean [Right Arm] Pulse Oximetry 98 Oxygen Delivery Method Room Air Sepsis Recent Fever Within 48 Hours Sepsis New/Unexplained Change in Mental Status Sepsis Action Taken by Nursing 09/11/23 04:00 09/11/23 04:01 09/11/23 04:01 Temperature Temperature Source Pulse Rate 94 H 89 Pulse Rate [Apical] Pulse Rate from SpO2 Sensor Pulse Rhythm [Apical] Pulse Strength [Apical] Respiratory Rate 19 16 Respiratory Effort / Characteristics Respiratory Depth Respiratory Pattern Blood Pressure 232/103 H Blood Pressure [Right Arm] Blood Pressure Mean 130 Blood Pressure Mean [Right Arm] Pulse Oximetry Oxygen Delivery Method Sepsis Recent Fever Within 48 Hours Sepsis New/Unexplained Change in Mental Status Sepsis Action Taken by Nursing 09/11/23 04:09 09/11/23 04:11 09/11/23 04:11 Temperature Temperature Source Pulse Rate 110 H 95 H Pulse Rate [Apical] Pulse Rate from SpO2 Sensor Pulse Rhythm [Apical] Pulse Strength [Apical] Respiratory Rate 14 Respiratory Effort / Characteristics Respiratory Depth Respiratory Pattern Blood Pressure 225/126 H 232/114 H Blood Pressure [Right Arm] Blood Pressure Mean 145 Blood Pressure Mean [Right Arm] Pulse Oximetry Oxygen Delivery Method Sepsis Recent Fever Within 48 Hours Sepsis New/Unexplained Change in Mental Status Sepsis Action Taken by Nursing 09/11/23 04:15 09/11/23 04:15 09/11/23 04:20 Temperature Temperature Source Pulse Rate 78 77 Pulse Rate [Apical] Pulse Rate from SpO2 Sensor Pulse Rhythm [Apical] Pulse Strength [Apical] Respiratory Rate 14 17 Respiratory Effort / Characteristics Respiratory Depth Respiratory Pattern Blood Pressure 217/109 H Blood Pressure [Right Arm] Blood Pressure Mean 127 Blood Pressure Mean [Right Arm] Pulse Oximetry Oxygen Delivery Method Sepsis Recent Fever Within 48 Hours Sepsis New/Unexplained Change in Mental Status Sepsis Action Taken by Nursing 09/11/23 04:27 09/11/23 04:27 09/11/23 04:30 Temperature Temperature Source Pulse Rate 74 Pulse Rate [Apical] 74 Pulse Rate from SpO2 Sensor Pulse Rhythm [Apical] Regular Pulse Strength [Apical] Respiratory Rate 20 18 Respiratory Effort / Characteristics Non-Labored Respiratory Depth Normal Respiratory Pattern Regular Blood Pressure 192/93 H Blood Pressure [Right Arm] 187/109 H Blood Pressure Mean 127 Blood Pressure Mean [Right Arm] 135 Pulse Oximetry 98 Oxygen Delivery Method Room Air Sepsis Recent Fever Within 48 Hours Sepsis New/Unexplained Change in Mental Status Sepsis Action Taken by Nursing 09/11/23 04:30 09/11/23 04:31 09/11/23 04:31 Temperature Temperature Source Pulse Rate 74 76 Pulse Rate [Apical] Pulse Rate from SpO2 Sensor Pulse Rhythm [Apical] Pulse Strength [Apical] Respiratory Rate 11 L 16 Respiratory Effort / Characteristics Respiratory Depth Respiratory Pattern Blood Pressure 187/109 H Blood Pressure [Right Arm] Blood Pressure Mean 141 Blood Pressure Mean [Right Arm] Pulse Oximetry Oxygen Delivery Method Sepsis Recent Fever Within 48 Hours Sepsis New/Unexplained Change in Mental Status Sepsis Action Taken by Nursing 09/11/23 04:40 09/11/23 04:45 09/11/23 04:45 Temperature Temperature Source Pulse Rate 80 76 80 Pulse Rate [Apical] Pulse Rate from SpO2 Sensor Pulse Rhythm [Apical] Pulse Strength [Apical] Respiratory Rate 15 18 Respiratory Effort / Characteristics Respiratory Depth Respiratory Pattern Blood Pressure 187/109 H Blood Pressure [Right Arm] Blood Pressure Mean Blood Pressure Mean [Right Arm] Pulse Oximetry Oxygen Delivery Method Sepsis Recent Fever Within 48 Hours Sepsis New/Unexplained Change in Mental Status Sepsis Action Taken by Nursing 09/11/23 04:45 09/11/23 04:50 09/11/23 05:00 Temperature Temperature Source Pulse Rate 76 73 Pulse Rate [Apical] Pulse Rate from SpO2 Sensor Pulse Rhythm [Apical] Pulse Strength [Apical] Respiratory Rate 14 17 Respiratory Effort / Characteristics Respiratory Depth Respiratory Pattern Blood Pressure 189/120 H Blood Pressure [Right Arm] Blood Pressure Mean 140 Blood Pressure Mean [Right Arm] Pulse Oximetry Oxygen Delivery Method Sepsis Recent Fever Within 48 Hours Sepsis New/Unexplained Change in Mental Status Sepsis Action Taken by Nursing 09/11/23 05:01 09/11/23 05:01 09/11/23 05:01 Temperature Temperature Source Pulse Rate 75 Pulse Rate [Apical] 75 Pulse Rate from SpO2 Sensor Pulse Rhythm [Apical] Regular Pulse Strength [Apical] Normal Respiratory Rate 18 14 Respiratory Effort / Characteristics Respiratory Depth Respiratory Pattern Blood Pressure 188/96 H Blood Pressure [Right Arm] 188/96 H Blood Pressure Mean 103 Blood Pressure Mean [Right Arm] 126 Pulse Oximetry 98 Oxygen Delivery Method Sepsis Recent Fever Within 48 Hours Sepsis New/Unexplained Change in Mental Status Sepsis Action Taken by Nursing 09/11/23 05:17 09/11/23 05:17 09/11/23 05:19 Temperature Temperature Source Pulse Rate 73 76 Pulse Rate [Apical] Pulse Rate from SpO2 Sensor Pulse Rhythm [Apical] Pulse Strength [Apical] Respiratory Rate 10 L 13 Respiratory Effort / Characteristics Respiratory Depth Respiratory Pattern Blood Pressure 220/104 H Blood Pressure [Right Arm] Blood Pressure Mean 132 Blood Pressure Mean [Right Arm] Pulse Oximetry Oxygen Delivery Method Sepsis Recent Fever Within 48 Hours Sepsis New/Unexplained Change in Mental Status Sepsis Action Taken by Nursing 09/11/23 05:19 09/11/23 05:20 09/11/23 05:30 Temperature Temperature Source Pulse Rate 75 72 Pulse Rate [Apical] Pulse Rate from SpO2 Sensor Pulse Rhythm [Apical] Pulse Strength [Apical] Respiratory Rate 14 19 Respiratory Effort / Characteristics Respiratory Depth Respiratory Pattern Blood Pressure 216/95 H Blood Pressure [Right Arm] Blood Pressure Mean 158 Blood Pressure Mean [Right Arm] Pulse Oximetry Oxygen Delivery Method Sepsis Recent Fever Within 48 Hours Sepsis New/Unexplained Change in Mental Status Sepsis Action Taken by Nursing 09/11/23 05:31 09/11/23 05:31 09/11/23 05:40 Temperature Temperature Source Pulse Rate 72 93 H Pulse Rate [Apical] Pulse Rate from SpO2 Sensor Pulse Rhythm [Apical] Pulse Strength [Apical] Respiratory Rate 20 17 Respiratory Effort / Characteristics Respiratory Depth Respiratory Pattern Blood Pressure 182/86 H Blood Pressure [Right Arm] Blood Pressure Mean 107 Blood Pressure Mean [Right Arm] Pulse Oximetry Oxygen Delivery Method Sepsis Recent Fever Within 48 Hours Sepsis New/Unexplained Change in Mental Status Sepsis Action Taken by Nursing 09/11/23 05:50 09/11/23 06:18 09/11/23 06:18 Temperature Temperature Source Pulse Rate 79 81 Pulse Rate [Apical] Pulse Rate from SpO2 Sensor Pulse Rhythm [Apical] Pulse Strength [Apical] Respiratory Rate 15 Respiratory Effort / Characteristics Respiratory Depth Respiratory Pattern Blood Pressure 202/83 H Blood Pressure [Right Arm] Blood Pressure Mean 121 Blood Pressure Mean [Right Arm] Pulse Oximetry Oxygen Delivery Method Sepsis Recent Fever Within 48 Hours Sepsis New/Unexplained Change in Mental Status Sepsis Action Taken by Nursing 09/11/23 06:20 09/11/23 06:20 09/11/23 06:30 Temperature Temperature Source Pulse Rate 79 Pulse Rate [Apical] 79 Pulse Rate from SpO2 Sensor Pulse Rhythm [Apical] Regular Pulse Strength [Apical] Normal Respiratory Rate 18 18 Respiratory Effort / Characteristics Non-Labored Spontaneous Respiratory Depth Normal Respiratory Pattern Blood Pressure 172/88 H Blood Pressure [Right Arm] 202/83 H Blood Pressure Mean 119 Blood Pressure Mean [Right Arm] 122 Pulse Oximetry 98 Oxygen Delivery Method Room Air Sepsis Recent Fever Within 48 Hours Sepsis New/Unexplained Change in Mental Status Sepsis Action Taken by Nursing 09/11/23 06:30 09/11/23 06:36 09/11/23 06:40 Temperature Temperature Source Pulse Rate 78 71 Pulse Rate [Apical] 71 Pulse Rate from SpO2 Sensor Pulse Rhythm [Apical] Regular Pulse Strength [Apical] Normal Respiratory Rate 14 18 17 Respiratory Effort / Characteristics Respiratory Depth Normal Respiratory Pattern Blood Pressure Blood Pressure [Right Arm] 172/88 H Blood Pressure Mean Blood Pressure Mean [Right Arm] 116 Pulse Oximetry 98 Oxygen Delivery Method Room Air Sepsis Recent Fever Within 48 Hours Sepsis New/Unexplained Change in Mental Status Sepsis Action Taken by Nursing 09/11/23 06:45 09/11/23 06:45 Temperature Temperature Source Pulse Rate 77 Pulse Rate [Apical] Pulse Rate from SpO2 Sensor Pulse Rhythm [Apical] Pulse Strength [Apical] Respiratory Rate 11 L Respiratory Effort / Characteristics Respiratory Depth Respiratory Pattern Blood Pressure 156/76 H Blood Pressure [Right Arm] Blood Pressure Mean 95 Blood Pressure Mean [Right Arm] Pulse Oximetry Oxygen Delivery Method Sepsis Recent Fever Within 48 Hours Sepsis New/Unexplained Change in Mental Status Sepsis Action Taken by Nursing Laboratory Data 09/11/23 04:25 09/11/23 04:25 Lab Results 09/11/23 Range/Units 04:25 WBC 7.71 (4.8-10.8) K/ul RBC 4.62 (4.20-5.40) M/uL Hgb 14.5 (12.0-16.0) g/dl Hct 42.5 (37.0-47.0) % MCV 92.0 (80.0-100.0) fL MCH 31.4 (25.0-34.0) pg MCHC 34.1 (32.0-36.0) g/dL RDW Std Deviation 41.1 (36.4-46.3) fL RDW Coeff of Blas 12.2 (11.5-14.5) % Plt Count 321 (130-400) K/uL MPV 9.0 L (9.4-12.4) fL Immature Gran % (Auto) 0.3 % Neut % (Auto) 64.9 % Lymph % (Auto) 21.0 % [place] % (Auto) 7.4 % Eos % (Auto) 5.8 % Baso % (Auto) 0.6 % Neut # (Auto) 5.00 (1.40-6.50) K/uL Lymph # (Auto) 1.62 (1.20-3.40) K/uL [place] # (Auto) 0.57 (0.11-0.59) K/uL Eos # (Auto) 0.45 (0.00-0.50) K/uL Baso # (Auto) 0.05 (0.00-0.20) K/uL Immature Gran # (Auto) 0.02 (0.01-0.20) K/uL Sodium 134 L (136-145) mmol/L Potassium 3.4 L (3.5-5.1) mmol/L Chloride 99 (98-107) mmol/L Carbon Dioxide 25 (21-32) mmol/L Anion Gap 10 (3-11) BUN 7 (6-23) mg/dl Creatinine 0.71 (0.6-1.2) mg/dl Est Cr Clr Drug Dosing 65.3 ml/min Est GFR ( Amer) 100.0 ml/min Est GFR (Non-Af Amer) 86.3 ml/min BUN/Creatinine Ratio 9.9 L (10-20) Glucose 108 H (70-99(Fasting)) mg/dl Calcium 9.6 (8.6-10.3) mg/dl Total Bilirubin 0.5 (0.2-1.0) mg/dl AST 14 (13-39) U/L ALT 13 (7-52) U/L Alkaline Phosphatase 97 (34-104) U/L Troponin I High Sens 26.7 H (0-14) pg/ml Total Protein 7.7 (6.0-8.3) gm/dl Albumin 4.8 (3.4-5.0) gm/dl Globulin 2.9 (2.5-4.0) gm/dl Albumin/Globulin Ratio 1.7 (0.9-2) Lipase 57 (11-82) U/L Administered Medications Heparin Sodium/Dextrose (Heparin Sodium/Dextrose) 25,000 units in 500 mls @ 13 mls/hr IV .Q24H GENARO; Protocol Stop: 10/11/23 16:59 Last Admin: 09/11/23 18:09 Dose: 650 units/hr, 13 mls/hr Documented By: BELGICA Co-signed By: JEWEL Losartan Potassium (Losartan Potassium 25 Mg Tab) 25 mg PO QAM GENARO Stop: 10/11/23 11:44 Last Admin: 09/11/23 12:17 Dose: Not Given Documented By: SMITHA Discontinued Medications Lorazepam (Lorazepam 1 Mg/1 Ml Syr Ed Inj Use) 0.5 mg IV ONE STA Stop: 09/11/23 07:14 Last Admin: 09/11/23 07:20 Dose: 0.5 mg Documented By: LISSETTE Metoprolol Succinate (Metoprolol Succ 50mg Ext Rel Tab) 50 mg PO NOW STA Stop: 09/11/23 03:57 Last Admin: 09/11/23 04:12 Dose: 50 mg Documented By: RUDY Metoprolol Tartrate (Metoprolol Tartrate 1 Mg/Ml Vial) 5 mg IV NOW STA Stop: 09/11/23 04:01 Last Admin: 09/11/23 04:09 Dose: 5 mg Documented By: RUDY Potassium Chloride (Potassium Chloride Crtab 20 Meq Tabcr) 20 meq PO NOW STA Stop: 09/11/23 07:50 Last Admin: 09/11/23 08:09 Dose: 20 meq Documented By: KV Imaging Data Radiologist's Impression: Chest X-Ray 09/11/23 03:56 XR chest 1V portable CLINICAL HISTORY: Chest pain, nonspecific COMPARISON STUDY: Chest CT March 01, 2021. Chest radiograph July 22, 2023. FINDINGS: Lung volumes are normal. Lungs are clear. There is no pneumothorax or pleural effusion. Cardiac size is normal. Mediastinal contours are normal. There is no evidence for pulmonary edema. IVC filters are incidentally noted. IMPRESSION: No acute cardiopulmonary findings. ACT 112: Negative or not required by law. Electronically signed by: Papa Nur M.D. 09/11/2023 6:41 AM Discharge Plan Visit Data Chief Complaint: Hypertension Stated Complaint: HYPERTENSION ED Provider: Faith Will Discharge Problem: Elevated troponin, Hypertensive urgency, Noncompliance with medication regimen Patient Disposition: Admitted As Inpatient Discharge Instructions Interventions: ED Discharge Assessment Last Done: 09/11/23 07:51
[2023-09-11 05:04] LABS: Troponin I High Sensitivity 26.7 pg/ml (0-14)
--- NOTE | 2023-09-11 06:42 | XRay Report ---
XR chest 1V portable CLINICAL HISTORY: Chest pain, nonspecific COMPARISON STUDY: Chest CT March 01, 2021. Chest radiograph July 22, 2023. FINDINGS: Lung volumes are normal. Lungs are clear. There is no pneumothorax or pleural effusion. Car diac size is normal. Mediastinal contours are normal. There is no evidence for pulmonary edema. IVC f ilters are incidentally noted. IMPRESSION: No acute cardiopulmonary findings. ACT 112: Negative or not required by law. Electronically signed by: Papa Nur M.D. 09/11/2023 6:41 AM
[2023-09-11] MEDS: LORazepam 1 MG/1 ML SYR ED Inj Use IV STA (07:20)
[2023-09-11] MEDS ORDERED: NITROGLYCERIN SL 0.4 MG/TAB TAB SL PRN (07:51)
[2023-09-11] MEDS ORDERED: hydrALAZINE HCL 25 MG TAB PO PRN (07:51)
[2023-09-11] MEDS ORDERED: POLYETHYLENE (MIRALAX) 17 GM PACK PO PRN (07:51)
--- NOTE | 2023-09-11 08:01 | History & Physical Report ---
Date of Service September 11, 2023 Assessment & Plan (1) Hypertensive urgency: Plan: 72F with PMH significant for HTN,IBS,chronic pain disorder,Anxiety,Medical non compliance, PTSD,Bipolar I disorder,Schizoaffective disorder, Hx of Drug dependence abuse,Hx of suicide attempt by acetaminophen overdose, Hx of DVT comes with chest pain and HTN urgency. Patient missed couple of days of Lopressor as she could not refill. Tearful that she is tired and hurt all over. Says having cramps in chest, abdomen and back. Afebrile. Constantly says same thing. Says not depressed and doesn't want to see psychiatrist. BP was 220/120's in ER when she came in . Troponin 26.Poor historian.Says her living condition is poor and tearful. Not able to get much history from patient.She was admitted on 04/04/23 for HTN urgency and chest discomfort.Seen by psychiatry during that adm ission and she refused psych meds and was thought she has capacity to make medical decisions. Hypertensive urgency could not refill Lopressor will restart Lopressor hydralazine po prn has multiple drug allergies. Chest discomfort EKG no acute findings mild elevation of troponin We will follow serial enzymes and echocardiogram cardio consult. Psychiatric illness Currently not taking medications seen by psychiatry last admit and refused meds. History of medical noncompliance Tobacco abuse needs counseling Poor living conditions Social service to help with discharge planning. DVT prophylaxis SCDs for now as patient is allergic to Lovenox. Disposition telemetry Full code History of Present Illness Chief Complaint: HTN urgency Primary Care Provider: NO PCP 72F with PMH significant for HTN,IBS,chronic pain disorder,Anxiety,Medical non compliance, PTSD,Bipolar I disorder,Schizoaffective disorder, Hx of Drug dependence abuse,Hx of suicide attempt by acetaminophen overdose, Hx of DVT comes with chest pain and HTN urgency. Patient missed couple of days of Lopressor as she could not refill. Tearful that she is tired and hurt all over. Says having cramps in chest, abdomen and back. Afebrile. Constantly says same thing. Says not depressed and doesn't want to see psychiatrist. BP was 220/120's in ER when she came in . Troponin 26.Poor historian.Says her living condition is poor and tearful. Not able to get much history from patient.She was admitted on 04/04/23 for HTN urgency and chest discomfort.Seen by psychiatry during that admission and she refused psych meds and was thought she has capacity to make medical decisions. Past medical history as mentioned above Past surgical history cystoscopy, EGD with biopsy, IVC filter, tonsillectomy. Social history lives alone. Smokes 1.5 packs a day for 37 years as per epic. Currently no alcohol use as per [facility] no drug use. As per epic she is on disability and Social Security because of physical and emotional reasons. Family history mother has colon cancer, stroke, high lipids. Father had diabetes bypass wall, blood clot. Sister has anxiety Allergies Allergy/AdvReac Type Severity Reaction Status Date / Time atropine Allergy Severe castillo, hard Verified 04/03/23 17:55 time breathing clonidine Allergy Severe RAISES Verified 04/03/23 17:55 B.P., ANXIOUSNESS diphenhydramine Allergy Severe "I ALMOST Verified 04/03/23 17:55 ." hyoscyamine Allergy Severe castillo, hard Verified 04/03/23 17:55 time breathing labetalol Allergy Severe swelling,loss Verified 04/03/23 17:55 of taste,itch, rash phenobarbital Allergy Severe castillo, hard Verified 04/03/23 17:55 time breathing prednisone Allergy Severe Edema Verified 04/03/23 17:55 face,lips and tongue. scopolamine Allergy Severe castillo, hard Verified 04/03/23 17:55 time breathing enoxaparin Allergy Intermediate RASH Verified 04/03/23 17:55 levofloxacin Allergy Intermediate ARM TURNED Verified 04/03/23 17:55 "FIREY RED" WHEN INFUSED, CLEARED IN A FEW HOURS tramadol Allergy Intermediate blisters Verified 04/03/23 17:55 all over warfarin Allergy Intermediate rash Verified 04/03/23 17:55 chlorpromazine Allergy Mild TOLERATING Verified 04/03/23 17:55 PROLIXIN AT HOME 01/15/08 coumarin Allergy Unknown UNKNOWN Verified 04/03/23 17:55 naproxen Allergy Unknown Abdominal Verified 04/03/23 17:55 Pain Penicillins Allergy Unknown Unknown Verified 04/03/23 17:55 morphine AdvReac Severe SHOCK;TOLERATES Verified 04/03/23 17:55 DEMEROL/PASSED OUT amitriptyline AdvReac Intermediate Nausea/vomi Verified 04/03/23 17:55 timg amlodipine AdvReac Intermediate Hypotension Verified 04/03/23 17:55 aspirin AdvReac Intermediate BLEEDING Verified 04/03/23 17:55 codeine AdvReac Intermediate BP DROPS Verified 04/03/23 17:55 AND PASSES OUT dicyclomine AdvReac Intermediate GI SYMPTOMS Verified 04/03/23 17:55 hydralazine AdvReac Intermediate palpitations Verified 04/03/23 17:55 as per px ibuprofen AdvReac Intermediate BLEEDING/ED Verified 04/03/23 17:55 ELLIOT lisinopril AdvReac Intermediate COUGH Verified 04/03/23 17:55 nitrofurantoin AdvReac Intermediate hallucinati Verified 04/03/23 17:55 ng Home Medications Medication Instructions Recorded Confirmed Type metoprolol succinate 50 mg 50 mg PO BID 07/22/23 07/22/23 History tablet,extended release 24 hr Past Med/Surg History Medical History Sedative, hypnotic or anxiolytic use disorder, severe, dependence benzodiazepines Opioid use disorder Schizoaffective disorder, bipolar type Cystic mass of pancreas DVT (deep venous thrombosis) High blood pressure Hypertensive urgency H/O drug abuse Tobacco abuse Hypertension COPD (chronic obstructive pulmonary disease) Posttraumatic stress disorder (01/14/13) Surgical History History of cystoscopy History of inferior vena caval filter placement Family History Father Myocardial infarction, Onset Age: 66 Diabetes Mother Stroke Colorectal cancer Other Family history non-contributory Social History Smoking Status: Current every day smoker Tobacco Type: E-cigarettes / Vaping Cigarettes Per Day: 1.5 PPD; Second Hand Exposure: No; Do You Dip or Chew Tobacco: No; Hx Alcohol Use: No Hx Substance Use: No Preferred Language: Greenlandic Communication Ability: Effective Communication Ability Comment: needs frequent redirection to stay on task Visual Impairment: No Limitations Hearing Ability: Normal Clinical Research Director Required: No Beliefs That Will Affect Care: None marital status: Single Current Living Situation: Alone Current Living Situation Comment: apartment poor living conditions and no electric Feels Safe at Home: Yes Assistive Devices: None Review of Systems Review of Systems: Other Physical Exam Physical Exam: General- Tearful Head- atraumatic Eyes- PERRL. ENT- oropharynx clear Neck- supple, no JVD. Lungs- clear to auscultation no wheezing or crackles Heart- regular rhythm; no murmur, no gallop. Abdomen- normal bowel sounds, soft, nontender, no distension. Extremities- no pretibial edema, no erythema seen. Neuro- alert, oriented x 3; PERRL, no facial palsy; no dysarthria; moves extremities. Skin- warm & dry Results & Data Results & Data Vital Signs (Past 12 Hours) Vital Signs Temp Pulse Pulse Resp BP BP Pulse Ox 09/11/23 06:50 78 16 09/11/23 06:45 156/76 H 09/11/23 06:45 77 11 L 09/11/23 06:40 71 17 09/11/23 06:36 71 18 172/88 H 98 09/11/23 06:30 78 14 09/11/23 06:30 172/88 H 09/11/23 06:20 79 18 09/11/23 06:20 79 18 202/83 H 98 09/11/23 06:18 202/83 H 09/11/23 06:18 81 15 09/11/23 05:50 79 09/11/23 05:40 93 H 17 09/11/23 05:31 182/86 H 09/11/23 05:31 72 20 09/11/23 05:30 72 19 09/11/23 05:20 75 14 09/11/23 05:19 216/95 H 09/11/23 05:19 76 13 09/11/23 05:17 220/104 H 09/11/23 05:17 73 10 L 09/11/23 05:01 75 14 09/11/23 05:01 188/96 H 09/11/23 05:01 75 18 188/96 H 98 09/11/23 05:00 73 17 09/11/23 04:50 76 14 09/11/23 04:45 189/120 H 09/11/23 04:45 80 18 09/11/23 04:45 76 187/109 H 09/11/23 04:40 80 15 09/11/23 04:31 187/109 H 09/11/23 04:31 76 16 09/11/23 04:30 74 11 L 09/11/23 04:30 74 18 187/109 H 98 09/11/23 04:27 192/93 H 09/11/23 04:27 74 20 09/11/23 04:20 77 17 09/11/23 04:15 78 14 09/11/23 04:15 217/109 H 09/11/23 04:11 232/114 H 09/11/23 04:11 95 H 14 09/11/23 04:09 110 H 225/126 H 09/11/23 04:01 232/103 H 09/11/23 04:01 89 16 09/11/23 04:00 94 H 19 09/11/23 03:59 98 09/11/23 03:54 104 H 13 09/11/23 03:54 228/140 H 09/11/23 03:50 103 H 14 09/11/23 03:40 105 H 14 09/11/23 03:33 110 H 09/11/23 03:31 105 H 13 99 09/11/23 03:31 36.7 C 106 H 18 225/126 H 98 09/11/23 03:30 225/126 H O2 Del Method 09/11/23 06:50 09/11/23 06:45 09/11/23 06:45 09/11/23 06:40 09/11/23 06:36 Room Air 09/11/23 06:30 09/11/23 06:30 09/11/23 06:20 09/11/23 06:20 Room Air 09/11/23 06:18 09/11/23 06:18 09/11/23 05:50 09/11/23 05:40 09/11/23 05:31 09/11/23 05:31 09/11/23 05:30 09/11/23 05:20 09/11/23 05:19 09/11/23 05:19 09/11/23 05:17 09/11/23 05:17 09/11/23 05:01 09/11/23 05:01 09/11/23 05:01 09/11/23 05:00 09/11/23 04:50 09/11/23 04:45 09/11/23 04:45 09/11/23 04:45 09/11/23 04:40 09/11/23 04:31 09/11/23 04:31 09/11/23 04:30 09/11/23 04:30 Room Air 09/11/23 04:27 09/11/23 04:27 09/11/23 04:20 09/11/23 04:15 09/11/23 04:15 09/11/23 04:11 09/11/23 04:11 09/11/23 04:09 09/11/23 04:01 09/11/23 04:01 09/11/23 04:00 09/11/23 03:59 Room Air 09/11/23 03:54 09/11/23 03:54 09/11/23 03:50 09/11/23 03:40 09/11/23 03:33 09/11/23 03:31 09/11/23 03:31 Room Air 09/11/23 03:30 Diagnostic Findings Laboratory Results WBC 7.71 K/ul (4.8-10.8) 09/11/23 04:25 RBC 4.62 M/uL (4.20-5.40) 09/11/23 04:25 Hgb 14.5 g/dl (12.0-16.0) 09/11/23 04:25 Hct 42.5 % (37.0-47.0) 09/11/23 04:25 MCV 92.0 fL (80.0-100.0) 09/11/23 04:25 MCH 31.4 pg (25.0-34.0) 09/11/23 04:25 MCHC 34.1 g/dL (32.0-36.0) 09/11/23 04:25 RDW Std Deviation 41.1 fL (36.4-46.3) 09/11/23 04:25 RDW Coeff of Blas 12.2 % (11.5-14.5) 09/11/23 04:25 Plt Count 321 K/uL (130-400) 09/11/23 04:25 MPV 9.0 fL (9.4-12.4) L 09/11/23 04:25 Immature Gran % (Auto) 0.3 % 09/11/23 04:25 Neut % (Auto) 64.9 % 09/11/23 04:25 Lymph % (Auto) 21.0 % 09/11/23 04:25 Parke % (Auto) 7.4 % 09/11/23 04:25 Eos % (Auto) 5.8 % 09/11/23 04:25 Baso % (Auto) 0.6 % 09/11/23 04:25 Neut # (Auto) 5.00 K/uL (1.40-6.50) 09/11/23 04:25 Lymph # (Auto) 1.62 K/uL (1.20-3.40) 09/11/23 04:25 Parke # (Auto) 0.57 K/uL (0.11-0.59) 09/11/23 04:25 Eos # (Auto) 0.45 K/uL (0.00-0.50) 09/11/23 04:25 Baso # (Auto) 0.05 K/uL (0.00-0.20) 09/11/23 04:25 Immature Gran # (Auto) 0.02 K/uL (0.01-0.20) 09/11/23 04:25 Sodium 134 mmol/L (136-145) L 09/11/23 04:25 Potassium 3.4 mmol/L (3.5-5.1) L 09/11/23 04:25 Chloride 99 mmol/L (98-107) 09/11/23 04:25 Carbon Dioxide 25 mmol/L (21-32) 09/11/23 04:25 Anion Gap 10 (3-11) 09/11/23 04:25 BUN 7 mg/dl (6-23) 09/11/23 04:25 Creatinine 0.71 mg/dl (0.6-1.2) 09/11/23 04:25 Est Cr Clr Drug Dosing 65.3 ml/min 09/11/23 04:25 Est GFR ( Amer) 100.0 ml/min 09/11/23 04:25 Est GFR (Non-Af Amer) 86.3 ml/min 09/11/23 04:25 BUN/Creatinine Ratio 9.9 (10-20) L 09/11/23 04:25 Glucose 108 mg/dl (70-99(Fasting)) H 09/11/23 04:25 Calcium 9.6 mg/dl (8.6-10.3) 09/11/23 04:25 Total Bilirubin 0.5 mg/dl (0.2-1.0) 09/11/23 04:25 AST 14 U/L (13-39) 09/11/23 04:25 ALT 13 U/L (7-52) 09/11/23 04:25 Alkaline Phosphatase 97 U/L (34-104) 09/11/23 04:25 Troponin I High Sens 26.7 pg/ml (0-14) H 09/11/23 04:25 Total Protein 7.7 gm/dl (6.0-8.3) 09/11/23 04:25 Albumin 4.8 gm/dl (3.4-5.0) 09/11/23 04:25 Globulin 2.9 gm/dl (2.5-4.0) 09/11/23 04:25 Albumin/Globulin Ratio 1.7 (0.9-2) 09/11/23 04:25 Lipase 57 U/L (11-82) 09/11/23 04:25 Impressions Chest X-Ray 09/11/23 03:56 XR chest 1V portable CLINICAL HISTORY: Chest pain, nonspecific COMPARISON STUDY: Chest CT March 01, 2021. Chest radiograph July 22, 2023. FINDINGS: Lung volumes are normal. Lungs are clear. There is no pneumothorax or pleural effusion. Cardiac size is normal. Mediastinal contours are normal. There is no evidence for pulmonary edema. IVC filters are incidentally noted. IMPRESSION: No acute cardiopulmonary findings. ACT 112: Negative or not required by law. Electronically signed by: Papa Nur M.D. 09/11/2023 6:41 AM ECG Additional Comments: ECG NSR with rate of 97.No significant change was found. Code Status & VTE Plan VTE Prophylaxis Plan VTE Prophylaxis will be ordered: Yes
[2023-09-11] MEDS: POTASSIUM CHLORIDE CRTAB 20 MEQ TABCR PO STA (08:09)
--- NOTE | 2023-09-11 11:26 | Cardiology Consultation ---
Date of Consultation September 11, 2023 Assessment & Plan (1) Hypertensive urgency: 72-year-old female with past medical history of noncompliance and bipolar disorder presents with symptomatic uncontrolled hypertension in the setting of nonadherence with her medication regimen. High sensitive troponin mildly elevated x 1 measurement, repeat level currently pending. EKG x 1 and echocardiogram reassuring. Patient with no symptoms to suggest angina at the time of my assessment and she endorses a history of chronic shortness of breath with exertion which she attributes to her COPD. Will await her second troponin. At this time I feel it is reasonable to advance her diet. Resume prior to hospital treatment with metoprolol succinate 50 mg twice daily. Potassium has been supplemented and her base metabolic panel will be reassessed tomorrow. Add losartan 25 mg daily. History of Present Illness Attending Physician: Junito Son MD History of Present Illness Damaris Miller is a 72 year old female seen in cardiology consultation per the request of Dr Delvalle for the evaluation of hypertensive urgency and elevation in the HS troponin level. Patient seen in the emergency department, room A3 as a telemetry overflow patient. At the time of my assessment the patient was resting comfortably in no acute distress. Per review of her chart she has a past medical history of bipolar 1 disorder, posttraumatic stress disorder, ongoing tobacco use, COPD, chronic pain syndrome and hypertension. The patient states that she does not follow regularly with a primary care provider and has not seen cardiology in the past. She states that she is typically treated with metoprolol for high blood pressure and had a prescription pending at the pharmacy but she was not able to pick it up for at least a few days. She presented to the emergency department with noting diffuse pain including a cramping sensation in her chest, abdomen, and back. She stated that she could feel her blood pressure was elevated. Per review of her vital signs, her initial blood pressure was 225/126 on arrival last evening. She received a dose of 0.5 mg of IV Ativan, 5 mg IV metoprolol, and 50 mg of metoprolol succinate. Repeat blood pressure as a 751 this morning was down to 156/76. Allergies Allergy/AdvReac Type Severity Reaction Status Date / Time atropine Allergy Severe castillo, hard Verified 09/11/23 08:20 time breathing clonidine Allergy Severe RAISES Verified 09/11/23 08:20 B.P., ANXIOUSNESS diphenhydramine Allergy Severe "I ALMOST Verified 09/11/23 08:20 ." hyoscyamine Allergy Severe castillo, hard Verified 09/11/23 08:20 time breathing labetalol Allergy Severe swelling,loss Verified 09/11/23 08:20 of taste,itch, rash phenobarbital Allergy Severe castillo, hard Verified 09/11/23 08:20 time breathing prednisone Allergy Severe Edema Verified 09/11/23 08:20 face,lips and tongue. scopolamine Allergy Severe castillo, hard Verified 09/11/23 08:20 time breathing enoxaparin Allergy Intermediate RASH Verified 09/11/23 08:20 levofloxacin Allergy Intermediate ARM TURNED Verified 09/11/23 08:20 "FIREY RED" WHEN INFUSED, CLEARED IN A FEW HOURS tramadol Allergy Intermediate blisters Verified 09/11/23 08:20 all over warfarin Allergy Intermediate rash Verified 09/11/23 08:20 chlorpromazine Allergy Mild TOLERATING Verified 09/11/23 08:20 PROLIXIN AT HOME 01/15/08 coumarin Allergy Unknown UNKNOWN Verified 09/11/23 08:20 naproxen Allergy Unknown Abdominal Verified 09/11/23 08:20 Pain Penicillins Allergy Unknown Unknown Verified 09/11/23 08:20 morphine AdvReac Severe SHOCK;TOLERATES Verified 09/11/23 08:20 DEMEROL/PASSED OUT amitriptyline AdvReac Intermediate Nausea/vomi Verified 09/11/23 08:20 timg amlodipine AdvReac Intermediate Hypotension Verified 09/11/23 08:20 aspirin AdvReac Intermediate BLEEDING Verified 09/11/23 08:20 codeine AdvReac Intermediate BP DROPS Verified 09/11/23 08:20 AND PASSES OUT dicyclomine AdvReac Intermediate GI SYMPTOMS Verified 09/11/23 08:20 hydralazine AdvReac Intermediate palpitations Verified 09/11/23 08:20 as per px ibuprofen AdvReac Intermediate BLEEDING/ED Verified 09/11/23 08:20 ELLIOT lisinopril AdvReac Intermediate COUGH Verified 09/11/23 08:20 nitrofurantoin AdvReac Intermediate hallucinati Verified 09/11/23 08:20 ng Home Medications Medication Instructions Recorded Confirmed Type metoprolol succinate 50 mg 50 mg PO BID 07/22/23 09/11/23 History tablet,extended release 24 hr Patient History Medical History Sedative, hypnotic or anxiolytic use disorder, severe, dependence benzodiazepines Opioid use disorder Schizoaffective disorder, bipolar type Cystic mass of pancreas DVT (deep venous thrombosis) High blood pressure Hypertensive urgency H/O drug abuse Tobacco abuse Hypertension COPD (chronic obstructive pulmonary disease) Posttraumatic stress disorder (01/14/13) Surgical History History of cystoscopy History of inferior vena caval filter placement Family History Father Myocardial infarction, Onset Age: 66 Diabetes Mother Stroke Colorectal cancer Other Family history non-contributory Social History Smoking Status: Current every day smoker Tobacco Type: E-cigarettes / Vaping Cigarettes Per Day: 1.5 PPD; Second Hand Exposure: No; Do You Dip or Chew Tobacco: No; Hx Alcohol Use: No Hx Substance Use: No Preferred Language: Korean Communication Ability: Effective Communication Ability Comment: needs frequent redirection to stay on task Visual Impairment: No Limitations Hearing Ability: Normal Experimental Worker Required: No Beliefs That Will Affect Care: None marital status: Single Current Living Situation: Alone Current Living Situation Comment: apartment poor living conditions and no electric Feels Safe at Home: Yes Assistive Devices: None Review of Systems Review of Systems: All systems reviewed & are unremarkable except as noted in HPI & below Physical Exam Physical Exam: Temp Pulse Resp BP Pulse Ox O2 Del Method 36.7 C 65 16 156/76 H 98 Room Air 09/11/23 03:31 09/11/23 07:51 09/11/23 06:50 09/11/23 06:45 09/11/23 06:36 09/11/23 06:36 Constitutional: no acute distress Eyes: PERRL, conjunctivae normal, anicteric sclerae Respiratory: normal respiratory effort, lungs clear to auscultation Cardiovascular: RRR, no murmur, no edema Gastrointestinal (Abdomen): normal bowel sounds, soft, nontender, no hepatosplenomegaly Neurologic: PERRL, EOMI, accommodation nl, no face palsy, no dysarthria Results & Data Laboratory Results Cardiac Enzymes 09/11/23 Range/Units 04:25 AST 14 (13-39) U/L Troponin I High Sens 26.7 H (0-14) pg/ml CBC 09/11/23 Range/Units 04:25 WBC 7.71 (4.8-10.8) K/ul RBC 4.62 (4.20-5.40) M/uL Hgb 14.5 (12.0-16.0) g/dl Hct 42.5 (37.0-47.0) % Plt Count 321 (130-400) K/uL Neut # (Auto) 5.00 (1.40-6.50) K/uL Lymph # (Auto) 1.62 (1.20-3.40) K/uL Ramsey # (Auto) 0.57 (0.11-0.59) K/uL Eos # (Auto) 0.45 (0.00-0.50) K/uL Baso # (Auto) 0.05 (0.00-0.20) K/uL Comprehensive Metabolic Panel 09/11/23 Range/Units 04:25 Sodium 134 L (136-145) mmol/L Potassium 3.4 L (3.5-5.1) mmol/L Chloride 99 (98-107) mmol/L Carbon Dioxide 25 (21-32) mmol/L BUN 7 (6-23) mg/dl Creatinine 0.71 (0.6-1.2) mg/dl Glucose 108 H (70-99(Fasting)) mg/dl Calcium 9.6 (8.6-10.3) mg/dl AST 14 (13-39) U/L ALT 13 (7-52) U/L Alkaline Phosphatase 97 (34-104) U/L Total Protein 7.7 (6.0-8.3) gm/dl Albumin 4.8 (3.4-5.0) gm/dl Intake and Output 09/10/23 09/11/23 09/11/23 22:59 06:59 14:59 Other: Weight 56.1 kg Weight Measurement Method Built in [facility] Diagnostic Findings Summary of ttecho performed 09/11/23: The study is technically adequate for the evaluation of the referral indication. There is moderate concentric left ventricular hypertrophy. The left ventricular wall motion is normal. No regional wall motion abnormalities noted. The LV Ejection Fraction = 60-65%. The right ventricle is normal in size and function. Aortic valve sclerosis moderate, without significant aortic valvular stenosis. There is severe mitral annular calcification. Significant mitral regurgitation is absent. There is no mitral valve stenosis. Grade I diastolic dysfunction, (abnormal relaxation pattern). Compared to the report of the previous study dated 04/04/2023, there has been no significant interval change. EKG performed 09/11/2023 at 3:26 AM and interpret independently: Sinus rhythm at 97 bpm, age-indeterminate septal infarct pattern, no acute repolarization abnormalities, compared to the previous tracing dated 07/22/2023, no significant change was noted.
--- NOTE | 2023-09-11 11:34 | Electrocardiogram Report ---
Test Reason : Blood Pressure : / mmHG Vent. Rate : 097 BPM Atrial Rate : 097 BPM P-R Int : 152 ms QRS Dur : 058 ms QT Int : 354 ms P-R-T Axes : 035 035 070 degrees QTc Int : 449 ms Normal sinus rhythm Left atrial enlargement Possible Old Septal infarct (cited on or before 22-JUL-2023) Abnormal ECG When compared with ECG of 22-JUL-2023 16:19, No significant change was found Confirmed by Juan Jose Churchill ([id number]) on 09/11/2023 11:33:45 AM Referred By: REFERRED SELF Confirmed By:Juan Jose Churchill
[2023-09-11] MEDS: LOSARTAN POTASSIUM 25 MG TAB PO SCH (12:17)
--- NOTE | 2023-09-11 14:14 | Communication Note ---
Date of Service: September 11, 2023 Patient was seen and examined at bedside. 72-year-old lady with PMH of HTN, IBS, chronic pain disorder, anxiety, medicine noncompliance, PTSD, bipolar 1 disorder, schizoaffective disorder, drug dependence/abuse, suicide attempt by acetaminophen overdose, DVT came in with chest pain and hypertensive urgency. Of note, patient missed couple of days of home medication Lopressor as she could not refill. Patient says she is not depressed and does not want to see psychiatrist [patient was seen by psychiatry during admission in March 2023 and she refused psychiatric medication and was thought to she has capacity to make medical decisions]. At presentation BP was 220 over 120 mmHg. Troponin was 26. She is a poor historian. She is being managed for the following: Hypertensive urgency: Secondary to medication noncompliance/inability to refill Lopressor. Home dose Lopressor resumed, losartan added. Has multiple drug allergies. Hydralazine as needed. Chest discomfort: Patient complained of chest pressure but she does have chronic pain disorder and has generalized body pain. Troponin was elevated at 26, repeat pending. EKG and echo reviewed. Cardiology on board, appreciate recommendation. Continue telemetry monitoring. Psychiatric illnesses [see above]: Currently not on any medication. Seen by psychiatry in the past/has refused medications. History of medicine noncompliance: Continue to encourage compliance and importance of long-term benefits of taking medications appropriately. DVT prophylaxis: SCDs, patient is allergic to Lovenox Disposition: PT/OT, CM to assist with DC plan Full code
[2023-09-11 18:03] LABS: ANTI-Xa, LMWH(Low Molecular Wt < 0.10 IU/ML (< 0.10); Partial Thromboplastin Time 27 Seconds (21-31)
[2023-09-11] MEDS: HEPARIN SODIUM/DEXTROSE 25,000 UNITS/500 ML BAG IV SCH (18:09)
[2023-09-11] MEDS: Heparin IV Adult Wt-Based Low-Dose *NO* INITIAL Bolus Protocol IV SCH (18:29)
[2023-09-11] MEDS: METOPROLOL SUCC 50MG EXT REL TAB PO SCH (20:22)
[2023-09-11] MEDS: ACETAMINOPHEN 325 MG TAB PO PRN (20:25)
[2023-09-11] MEDS: NITROGLYCERIN 2% OINTMENT 30GM TUBE EXT SCH (21:21)
--- NOTE | 2023-09-12 00:15 | Communication Note ---
Date of Service: September 12, 2023 Patient with abdominal pain/bloating symptoms around midnight as per RN. UA WBC esterase positive CT abdomen pelvis: 1. Cecum in the anterior mid pelvis/mobile cecum. Was in the right abdomen on the prior. Most of the appendix appears normal caliber with gas filled appearance. However the tip is slightly dilated at 7 mm and fluid-filled, located in the anterior right lower quadrant. Series 3 image 222. No significant inflammatory changes. Raises possibility of tip appendicitis. No free air or abscess. 2. Small esophageal hiatal hernia. 3. Prominent veins around the uterus/pelvic congestion. Likely similar, although better seen on today's study. AP Abdominal pain Possible UTI Possible tip appendicitis as per CT Urine CS, Ceftriaxone N.p.o. General Surgery consult re: possible tip appendicitis Hold IV heparin until patient seen by General Surgery
[2023-09-12] MEDS: ACETAMINOPHEN 325 MG TAB PO STA (00:19)
[2023-09-12] MEDS: OPTIRAY 320 500ml IV ONE (01:13)
[2023-09-12 01:22] LABS: Appearance Urine Clear (Clear); Bacteria Urine Automated Negative (Negative); Bilirubin Urine Negative (Negative); Blood Urine Negative (Negative); Cast Urine Automated 0 /lpf (0-5); Color Urine Yellow; Glucose Urine UA Negative (Negative); Ketones Urine Negative (Negative); Leukocyte Esterase Urine 2+ (Negative); Nitrite Urine Negative (Negative); Protein Urine Negative (Negative); Specific Gravity Urine 1.003 (1.000-1.030); Urobilinogen Urine Negative (Negative)
[2023-09-12 01:42] LABS: ANTI-Xa, UFH(UnfractionatedHep < 0.10 IU/ml (0.3-0.7)
[2023-09-12] MEDS: MELATONIN 3 MG TAB PO PRN (01:49)
[2023-09-12] MEDS: cefTRIAXone SODIUM 2,000 MG in DEXTROSE 5 % MINI-B 50 ML IV SCH (02:34)
--- NOTE | 2023-09-12 02:50 | CT Scan Report ---
Exam(s): CT ABDOMEN + PELVIS With Contrast IV Amt: 88 ML OPTIRAY 320 EXAM: CT Abdomen and Pelvis With Intravenous Contrast CLINICAL HISTORY: Reason for exam: abd pain, heparin. TECHNIQUE: Axial computed tomography images of the abdomen and pelvis with intravenous contrast. Automated exposure control was utilized for the study. A dose lowering technique was utilized adhering to the principles of ALARA. CONTRAST: Patient received 88 ML OPTIRAY 320 of IV contrast COMPARISON: CT Abdomen Pelvis dated 03/01/21 FINDINGS: Lung bases: Bibasilar atelectasis. Mediastinum: Small esophageal hiatal hernia. ABDOMEN: Liver: Unremarkable. No mass. Gallbladder and bile ducts: Unremarkable. No calcified stones. No ductal dilation. Pancreas: Unremarkable. No mass. No ductal dilation. Spleen: Unremarkable. No splenomegaly. Adrenals: Unremarkable. No mass. Kidneys and ureters: Unremarkable. No solid mass. No hydronephrosis. Stomach and bowel: See below. No obstruction. No mucosal thickening. PELVIS: Appendix: Cecum in the anterior mid pelvis/mobile cecum. Was in the right abdomen on the prior. Most of the appendix appears normal caliber with gas filled appearance. However the tip is slightly dilated at 7 mm and fluid-filled, located in the anterior right lower quadrant. Series 3 image 222. No significant inflammatory changes. Bladder: Unremarkable. No mass. Reproductive: Unremarkable as visualized. ABDOMEN and PELVIS: Intraperitoneal space: Unremarkable. No free air. No significant fluid collection. Bones/joints: No acute fracture. No dislocation. Soft tissues: Unremarkable. Vasculature: Atherosclerotic calcifications of the aortoiliac arteries similar to the prior. Stable suprarenal IVC filter. Additional extraluminal IVC filter to the right of the IVC, similar to the prior. Prominent veins around the uterus/pelvic congestion. Likely similar, although better seen on today's study. No abdominal aortic aneurysm. Lymph nodes: Unremarkable. No enlarged lymph nodes. IMPRESSION: 1. Cecum in the anterior mid pelvis/mobile cecum. Was in the right abdomen on the prior. Most of the appendix appears normal caliber with gas filled appearance. However the tip is slightly dilated at 7 mm and fluid-filled, located in the anterior right lower quadrant. Series 3 image 222. No significant inflammatory changes. Raises possibility of tip appendicitis. No free air or abscess. 2. Small esophageal hiatal hernia. 3. Prominent veins around the uterus/pelvic congestion. Likely similar, although better seen on today's study. Communications: Verify Receipt Electronically signed by: Gabriela Maxwell M.D. 09/12/23 02:49 AM
[2023-09-12] MEDS: NSS + 20MEQ KCL 20 MEQ/1,000 ML BAG IV ONE (03:28)
--- NOTE | 2023-09-12 03:35 | Surgery Consultation ---
<Statement entered by Ashish Loving, DO - 09/12/23 08:07> The patient has had right upper quadrant pain off and on for the past 2 months. She has ongoing and chronic GI issues in general for 20 years with alternating bouts of constipation and explosive diarrhea. There are pellets of hard, dry stool in the rectal vault and some stool burden felt more proximally. Her history is rather non-specific and it is difficult to keep her focused on the questions needed to clarify this history. In general, I do not believe she has acute appendicitis as this is not presentation for such but she may have something more chronically there that needs to be further evaluated and addressed at that time. For now, we will check a RUQ US as she tends to point to this area and this is where she has had pain over the past 2-3 months. Further plan pending results. Date of Consultation September 12, 2023 Assessment & Plan (1) Appendicitis: I was contacted by the hospital service to evaluate this inpatient. I seen the patient in room 4 581. For the present time we recommend the following: It is unclear if the patient has appendicitis that she does have some generalized abdominal pain We will follow serial labs as well as serial abdominal exams Patient is receiving antibiotics in form of Rocephin which should continue Recommend keeping the patient n.p.o. for the present time The patient was currently receiving a heparin drip and this has been discontinued at approximately midnight on 09/12/2023. Would recommend holding anticoagulation until it is ascertained whether or not the patient requires any surgical intervention Patient be reevaluated in the morning of 09/12/2023 by my attending physician Dr. Slick Sutton and a determination will be made if patient will require surgical intervention Patient was seen with Dr. Tita Sutton at approximately 6:00 AM. Patient notes that she has had considerable constipation so a fleets enema was ordered. In addition, the patient did note some right upper quadrant pain in addition to what she noted during my initial encounter with the patient. We have therefore ordered a right upper quadrant ultrasound for further evaluation of this complaint. History of Present Illness Reason for Consultation: Possible appendicitis Attending Physician: Junito Son MD History of Present Illness This is a 72-year-old female who was admitted to [facility] on 09/11/2023 secondary to hypertensive urgency. Patient was complaining of cramps in her chest and abdomen was found to have elevated blood pressure. At time of admission she admitted to missing several doses of blood pressure so she was admitted to the hospital for treatment of this condition. There was concern on the part of a family member/infant nanny due to the patient's abdominal pain and they requested abdominal imaging be performed. Patient had a CT scan of the abdomen and pelvis performed this evening which showed the patient had which showed the patient had a slightly dilated appendiceal tip at 7 mm which was fluid-filled. There is no significant laboratory changes but the interpreting radiologist raised the possibility of a tip appendicitis. There is no free air or abscess noted. Additional labs patient has had this admission include a CBC where her white blood cell count, hemoglobin, hematocrit, and platelet count were all within normal range. Chemistry profile showed sodium was 134. Her potassium was 3.4. BUN and creatinine are both normal. Patient has had troponins checked and her initial troponin was 26.7 on 09/11/2023. Subsequent troponin was elevated at 220- 08/07 troponin was 97.8. Patient has been seen by cardiology and her blood pressure medications have been subsequently adjusted. Patient also had a urinalysis that showed 2+ leukocyte Estrace but this was negative for nitrites as well as pyuria and bacteria. I did asked the patient about abdominal symptomatology and she said that she has had abdominal pain on and off for several months. During her current admission she denies any fevers, shakes, or chills. She denies any nausea or vomiting. She denies any modifying factors to her abdominal discomfort. She also denies any prior history of abdominal surgeries. The patient does have a history of DVT and she has had an IVC filter placed. At the time of my interview the patient was resting comfortably in bed and she was in no distress Allergies Allergy/AdvReac Type Severity Reaction Status Date / Time atropine Allergy Severe castillo, hard Verified 09/11/23 08:20 time breathing clonidine Allergy Severe RAISES Verified 09/11/23 08:20 B.P., ANXIOUSNESS diphenhydramine Allergy Severe "I ALMOST Verified 09/11/23 08:20 ." hyoscyamine Allergy Severe castillo, hard Verified 09/11/23 08:20 time breathing labetalol Allergy Severe swelling,loss Verified 09/11/23 08:20 of taste,itch, rash phenobarbital Allergy Severe castillo, hard Verified 09/11/23 08:20 time breathing prednisone Allergy Severe Edema Verified 09/11/23 08:20 face,lips and tongue. scopolamine Allergy Severe castillo, hard Verified 09/11/23 08:20 time breathing enoxaparin Allergy Intermediate RASH Verified 09/11/23 08:20 levofloxacin Allergy Intermediate ARM TURNED Verified 09/11/23 08:20 "FIREY RED" WHEN INFUSED, CLEARED IN A FEW HOURS tramadol Allergy Intermediate blisters Verified 09/11/23 08:20 all over warfarin Allergy Intermediate rash Verified 09/11/23 08:20 chlorpromazine Allergy Mild TOLERATING Verified 09/11/23 08:20 PROLIXIN AT HOME 01/15/08 coumarin Allergy Unknown UNKNOWN Verified 09/11/23 08:20 naproxen Allergy Unknown Abdominal Verified 09/11/23 08:20 Pain Penicillins Allergy Unknown Unknown Verified 09/11/23 08:20 morphine AdvReac Severe SHOCK;TOLERATES Verified 09/11/23 08:20 DEMEROL/PASSED OUT amitriptyline AdvReac Intermediate Nausea/vomi Verified 09/11/23 08:20 timg amlodipine AdvReac Intermediate Hypotension Verified 09/11/23 08:20 aspirin AdvReac Intermediate BLEEDING Verified 09/11/23 08:20 codeine AdvReac Intermediate BP DROPS Verified 09/11/23 08:20 AND PASSES OUT dicyclomine AdvReac Intermediate GI SYMPTOMS Verified 09/11/23 08:20 hydralazine AdvReac Intermediate palpitations Verified 09/11/23 08:20 as per px ibuprofen AdvReac Intermediate BLEEDING/ED Verified 09/11/23 08:20 ELLIOT lisinopril AdvReac Intermediate COUGH Verified 09/11/23 08:20 nitrofurantoin AdvReac Intermediate hallucinati Verified 09/11/23 08:20 ng Home Medications Medication Instructions Recorded Confirmed Type metoprolol succinate 50 mg 50 mg PO BID 07/22/23 09/11/23 History tablet,extended release 24 hr Patient History Medical History Sedative, hypnotic or anxiolytic use disorder, severe, dependence benzodiazepines Opioid use disorder Schizoaffective disorder, bipolar type Cystic mass of pancreas DVT (deep venous thrombosis) High blood pressure Hypertensive urgency H/O drug abuse Tobacco abuse Hypertension COPD (chronic obstructive pulmonary disease) Posttraumatic stress disorder (01/14/13) Surgical History History of cystoscopy History of inferior vena caval filter placement Family History Father Myocardial infarction, Onset Age: 66 Diabetes Mother Stroke Colorectal cancer Other Family history non-contributory Social History Smoking Status: Current every day smoker Tobacco Type: E-cigarettes / Vaping Cigarettes Per Day: 1.5 PPD; Second Hand Exposure: No; Do You Dip or Chew Tobacco: No; Hx Alcohol Use: No Hx Substance Use: No Preferred Language: Estonian Communication Ability: Effective Communication Ability Comment: needs frequent redirection to stay on task Visual Impairment: No Limitations Hearing Ability: Normal Cable Installer Required: No Beliefs That Will Affect Care: None marital status: Single Current Living Situation: Alone Current Living Situation Comment: Patient lives in hotel paid for by friend Feels Safe at Home: Declines to Answer Assistive Devices: None Review of Systems Constitutional: no fever and no chills Ear, Nose, Mouth, Throat: no hearing loss Respiratory: no cough Cardiovascular: + chest pain Gastrointestinal: as per Subjective / HPI Genitourinary: no dysuria Musculoskeletal: no back pain Integumentary: no rash Neurologic: no localized weakness Physical Exam Constitutional: WD/WN, vitals as above Eyes: no conjunctival abnormality ENMT: Ears: no hearing impairment and no external ear abnormality Mouth: no oropharynx abnormality Neck: trachea midline Respiratory: normal respiratory effort; no respiratory distress and no labored breathing Cardiovascular: Rate/Rhythm: regular rate and regular rhythm Gastrointestinal (Abdomen): Patient's abdomen is soft and nonrigid. It is minimally distended. There is no rebound tenderness or guarding. The patient did have pain with palpation in her abdomen in a generalized fashion but did appear to be somewhat more severe in the right lower quadrant Musculoskeletal: No calf tenderness Skin: no rashes Neurologic: moves all extremities Results & Data Vital Signs (Past 12 Hours) Vital Signs Temp Pulse Pulse Resp BP BP Pulse Ox 09/12/23 02:58 36.5 C 73 16 126/86 98 09/11/23 23:18 36.4 C L 79 18 159/83 H 99 09/11/23 22:00 70 09/11/23 21:55 72 163/74 H 09/11/23 21:17 80 192/82 H 09/11/23 20:24 36.7 C 83 18 200/97 H 99 09/11/23 19:48 89 09/11/23 18:30 75 15 164/92 H 96 09/11/23 17:21 94 H 20 178/95 H 99 O2 Del Method 09/12/23 02:58 Room Air 09/11/23 23:18 Room Air 09/11/23 22:00 09/11/23 21:55 09/11/23 21:17 09/11/23 20:24 Room Air 09/11/23 19:48 09/11/23 18:30 Room Air 09/11/23 17:21 Room Air PG Care Time/CCT Total # of Minutes Spent Total Time Spent with Patient: Total time spent is greater than 50% in coordination of care (as documented) at patient's floor/unit and/or counseling patient: Coding Level of Care Code 37178 INT INP/OBS CARE 3/75MIN Diagnoses Appendicitis K37
[2023-09-12] MEDS: ACETAMINOPHEN 1,000 MG/100 ML VIAL IV STA (04:35)
[2023-09-12 05:20] LABS: Basophils # (auto) 0.07 K/uL (0.00-0.20); Basophils % (auto) 0.9 %; Eosinophils # (auto) 0.31 K/uL (0.00-0.50); Eosinophils % (auto) 3.8 %; Hematocrit (blood only) 39.6 % (37.0-47.0); Hemoglobin 13.7 g/dl (12.0-16.0); Immature Granulocytes # (auto) 0.02 K/uL (0.01-0.20); Immature Granulocytes % (auto) 0.2 %; Lymphocytes # (auto) 2.92 K/uL (1.20-3.40); Mean Corpuscular Hemoglobin 31.5 pg (25.0-34.0); Mean Corpuscular Hgb Conc 34.6 g/dL (32.0-36.0); Mean Platelet Volume 9.4 fL (9.4-12.4); Monocytes # (auto) 0.67 K/uL (0.11-0.59); Monocytes % (auto) 8.3 %; Neutrophils # (auto) 4.12 K/uL (1.40-6.50); Neutrophils % (auto) 50.8 %; Platelet Count 365 K/uL (130-400); RDW Coefficient of Variation 12.2 % (11.5-14.5); RDW Standard Deviation 41.1 fL (36.4-46.3); Red Blood Count 4.35 M/uL (4.20-5.40); White Blood Count 8.11 K/ul (4.8-10.8)
[2023-09-12 05:49] LABS: BUN Creatinine Ratio 13.4 (10-20); Creatinine Clr Calc Pharmacy 66.1 ml/min; Est GFR (African American) 103.2 ml/min; Est GFR (Non-African American) 89.1 ml/min; Magnesium 2.1 mg/dl (1.7-2.4); Phosphorus 3.4 mg/dl (2.5-4.9); Potassium 4.4 mmol/L (3.5-5.1)
--- NOTE | 2023-09-12 06:57 | Ultrasound Report ---
ULTRASOUND RIGHT UPPER QUADRANT ABDOMEN CLINICAL HISTORY: Right upper quadrant abdominal pain. COMPARISON STUDY: Abdominal CT dated 09/12/2023 TECHNIQUE: Real-time, grayscale, and color flow sonography of the right upper quadrant of the abdomen was performed. Images are reviewed in the transverse and longitudinal planes. FINDINGS: Liver: The liver is normal in size and echotexture. There is no intrahepatic biliary ductal dilatatio n. The main portal vein is patent. Gallbladder: The gallbladder is normal in appearance. No gallstones are identified. There is no gallb ladder wall thickening or pericholecystic fluid. A sonographic Ghosh's sign is reportedly absent. Th e common bile duct measures up to 0.3 cm in diameter. Pancreas: Visualized portions of the pancreatic head and body are normal in appearance. The splenic v ein is patent. Right kidney: Survey images of the right kidney demonstrate normal size and echotexture. There is no hydronephrosis. Ascites: None. IMPRESSION: No acute sonographic abnormality is identified in the right upper quadrant. No gallstones are seen. ACT 112: Negative or not required by law. Electronically signed by: Noel Ford M.D. 09/12/2023 6:55 AM
[2023-09-12] MEDS: SOD PHOSPHATE/SOD BIPHOSPHATE ENEMA 132 ML BTL PR ONE (10:21)
[2023-09-12] MEDS: bisacodyL 10 MG SUPP PR STA (11:00)
--- NOTE | 2023-09-12 13:43 | Electrocardiogram Report ---
Test Reason : Blood Pressure : / mmHG Vent. 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
[2023-09-12] MEDS: busPIRone 7.5 MG TAB PO SCH (15:33)
--- NOTE | 2023-09-12 15:46 | Hospitalist Progress Note ---
Date of Service September 12, 2023 Assessment & Plan (1) Noncompliance with medication regimen: Plan 72-year-old lady with PMH of HTN, IBS, chronic pain disorder, anxiety, medicine noncompliance, PTSD, bipolar 1 disorder, schizoaffective disorder, drug dependence/abuse, suicide attempt by acetaminophen overdose, DVT came in with chest pain and hypertensive urgency. Of note, patient missed couple of days of home medication Lopressor as she could not refill. Patient says she is not depressed and does not want to see psychiatrist [patient was seen by psychiatry during admission in March 2023 and she refused psychiatric medication and was thought to she has capacity to make medical decisions]. At presentation BP was 220 over 120 mmHg. Troponin was 26. She is a poor historian. She is being managed for the following: Hypertensive urgency: Secondary to medication noncompliance/inability to refill Lopressor. Home dose Lopressor resumed, losartan added. Has multiple drug allergies. Hydralazine as needed. BP better controlled. Chest discomfort/likely demand ischemia: Patient complained of chest pressure but she does have chronic pain disorder and has generalized body pain. Troponin was elevated at 26---220---97. EKG and echo reviewed. Cardiology on board, appreciate recommendation. Continue telemetry monitoring. Hep drip was started, today patient doesn't complain any chest pain. Concern for UTI: UCx pending. c/w rocephin 09/12. Concern for Tip Appendicitis: Pt evaled for abd pain overnight of 09/11-09/12. CTAP 09/12 concerning for tip appendicitis; 09/12 US RUQ wnl. Gen Sx on board, on clears now, follow up reassessment in AM. NPO midnight. Hold hep drip 09/13 at 2 am - order placed. Psychiatric illnesses [see above]: Currently not on any medication. Seen by psychiatry in the past/has refused medications. History of medicine noncompliance: Continue to encourage compliance and importance of long-term benefits of taking medications appropriately. DVT prophylaxis: On hep drip. Disposition: PT/OT, CM to assist with DC plan DNR/DNI Admission and Anticipated Discharge Date Admission Date: September 11, 2023 Subjective Patient was seen and examined at bedside. Patient was lying in bed, sleeping, woke up to bedside exam, not in any acute distress. Patient denies any chest pain or pressure today, evaluated for abdominal pain overnight for which she underwent CTAP which was concerning for tip appendicitis and hence patient was put n.p.o. and heparin drip was held and general surgery consulted. At bedside exam, patient reports having abdominal pain and also states that this is her chronic pain. Gen Kaylax duniaaled, now on clears, plan for NPO midnight and reassess in AM. Will hold hep early maggie AM until Sx eval in AM. She was AOx 4 at exam, we discussed about code status, she voiced DNR/DNI. Physical Exam Physical Exam: GENERAL: Alert and oriented x3. NAD, on RA. Appears ill/frail/weak/lean HEENT: No pallor, no icterus. Pupils equal, round and reactive to light. Oral mucosa moist. NECK: No JVD, no neck masses. HEART: S1 and S2 heard. Regular rate and rhythm. No murmur, no gallop. RESPIRATORY SYSTEM: Normal AP diameter. No accessory muscle use. No wheezing, no crackles. ABDOMEN: Soft, bowel sounds present, + tender diffuse (pt reports it being chronic), no distention. CENTRAL NERVOUS SYSTEM: No facial droop. Speech is clear. Obeys simple commands. Moves extremities. EXTREMITIES: No edema, no erythema seen. Results & Data Results & Data Vital Signs (Past 12 Hours) Vital Signs Temp Pulse Pulse Resp BP BP Pulse Ox 09/12/23 15:00 60 09/12/23 14:16 09/12/23 11:22 36.9 C 87 21 123/75 96 09/12/23 09:00 09/12/23 08:00 36.3 C L 79 20 94/56 L 97 09/12/23 07:57 76 Pulse Ox O2 Del Method 09/12/23 15:00 09/12/23 14:16 98 09/12/23 11:22 Room Air 09/12/23 09:00 Room Air 09/12/23 08:00 Room Air 09/12/23 07:57
--- NOTE | 2023-09-12 16:07 | Cardiology Progress Note ---
Date of Service September 12, 2023 Assessment & Plan (1) Hypertensive urgency: Plan: 72-year-old female with past medical history of noncompliance and bipolar disorder presents with symptomatic uncontrolled hypertension in the setting of nonadherence with medication regimen. Denies chest discomfort or any overt anginal symptoms. Initially treated with IV heparin due to elevated troponin and diffuse pain including chest discomfort on admission. CT of the abdomen pelvis suggesting possible appendicitis. IV heparin temporarily placed on hold, however, currently restarted. High-sensitivity troponin trending downward, however, repeat ECG performed at approximately 5 AM with new anterior T wave inversion with prolonged QT interval. Findings suggest stress-induced event (possible Takotsubo), demand ischemia in the setting of hypertensive urgency, beta-jeri withdrawal and/or acute coronary syndrome. Recommend repeat ECG in AM and limited resting 2D transthoracic echocardiogram for reassessment of LV wall motion. Patient currently asymptomatic with markedly improved blood pressure control. Continue metoprolol succinate 50 mg twice daily, losartan 25 mg daily. Metoprolol dose held this a.m. due to hypotension. Recommend discontinuation of topical nitrates. Patiently currently under assessment by surgical service regarding possible acute appendicitis. IV heparin will be placed on hold at approximately 3 AM pending surgical reassessment. With elevated troponin, hypertensive urgency, and ECG changes, patient would be considered moderate to high risk from a cardiovascular perspective for surgery and general anesthesia. (2) Elevated troponin: (3) Acute electrocardiogram changes: Admission and Anticipated Discharge Date Admission Date: September 11, 2023 Subjective 72-year-old female admitted with hypertensive urgency. Seen and examined at the bedside complaining of abdominal discomfort. Denies chest pain, heaviness, shortness of breath, orthopnea, PND, or lower extremity edema. Telemetry reveals sinus rhythm in the 60s. High-sensitivity troponin elevated, however, trending downward. Review of Systems Review of Systems: All systems reviewed & are unremarkable except as noted in Subjective Physical Exam Constitutional: well nourished; no acute distress Respiratory: no respiratory distress, no labored breathing and no retractions Auscultation: lungs clear to auscultation bilaterally; no crackles, no rales, no rhonchi and no wheezes Cardiovascular: Rate/Rhythm: regular rate and regular rhythm Heart Sounds: normal S1 and normal S2; no murmur Extremities: no edema Gastrointestinal (Abdomen): Inspection/Auscultation: abdomen not distended Percussion/Palpation: + abdomen tender; no guarding and abdomen not rigid Neurologic: CN's II-XI intact bilaterally and moves all extremities; no focal motor deficits Psychiatric: Affect: + anxious affect Results & Data Vital Signs (Past 12 Hours) Vital Signs Temp Pulse Pulse Resp BP BP Pulse Ox 09/12/23 15:44 83 20 115/75 99 09/12/23 15:00 60 09/12/23 14:16 09/12/23 11:22 36.9 C 87 21 123/75 96 09/12/23 09:00 09/12/23 08:00 36.3 C L 79 20 94/56 L 97 09/12/23 07:57 76 Pulse Ox O2 Del Method 09/12/23 15:44 Room Air 09/12/23 15:00 09/12/23 14:16 98 09/12/23 11:22 Room Air 09/12/23 09:00 Room Air 09/12/23 08:00 Room Air 09/12/23 07:57 Laboratory Results Cardiac Enzymes 09/11/23 Range/Units 20:17 Troponin I High Sens 97.8 H* D (0-14) pg/ml Coagulation 09/11/23 Range/Units 17:17 APTT 27 (21-31) Seconds CBC 09/12/23 Range/Units 04:36 WBC 8.11 (4.8-10.8) K/ul RBC 4.35 (4.20-5.40) M/uL Hgb 13.7 (12.0-16.0) g/dl Hct 39.6 (37.0-47.0) % Plt Count 365 (130-400) K/uL Neut # (Auto) 4.12 (1.40-6.50) K/uL Lymph # (Auto) 2.92 (1.20-3.40) K/uL [place] # (Auto) 0.67 H (0.11-0.59) K/uL Eos # (Auto) 0.31 (0.00-0.50) K/uL Baso # (Auto) 0.07 (0.00-0.20) K/uL Comprehensive Metabolic Panel 09/12/23 Range/Units 04:36 Sodium 135 L (136-145) mmol/L Potassium 4.4 D (3.5-5.1) mmol/L Chloride 104 (98-107) mmol/L Carbon Dioxide 22 (21-32) mmol/L BUN 9 (6-23) mg/dl Creatinine 0.67 (0.6-1.2) mg/dl Glucose 93 (70-99(Fasting)) mg/dl Calcium 9.0 (8.6-10.3) mg/dl Intake and Output 09/12/23 09/12/23 09/12/23 06:59 14:59 22:59 Intake Total 394.167 / 794.167 0 / 36 36 / 36 Output Total 150 / 650 Balance 244.167 / 144.167 0 / 36 36 / 36 Intake: IV 394.167 / 394.167 0 / 0 Acetaminophen 1,000 mg In 100 100 / 100 ml @ 400 mls/hr IV NOW STA Rx#: [id number] Heparin Sodium/Dextrose 25,000 80.167 / 80.167 0 / 0 units In 500 ml @ 650 UNITS/HR 13 mls/hr IV .Q24H [facility] Rx#: [id number] Nss + 20Meq KCl 20 meq In 1,000 164 / 164 ml @ 60 mls/hr IV .[id number] ONE Rx#:[id number] cefTRIAXone SODIUM 2,000 mg In 50 / 50 Dextrose 5 % Mini-B 50 ml @ 100 mls/hr IV Q24H [facility] Rx#: [id number] Oral 36 / 36 Output: Urine 150 / 650 Other: Other Intake Source NPO # Unmeasured Voids 1 1 2
[2023-09-12] MEDS: CALCIUM CARBONATE 500 MG CHEWABLE TAB PO PRN (16:35)
--- NOTE | 2023-09-12 20:07 | Communication Note ---
Date of Service: September 12, 2023 Patient refusing IV heparin as per RN despite counseling
[2023-09-13 05:09] LABS: Hematocrit (blood only) 40.6 % (37.0-47.0); Hemoglobin 13.7 g/dl (12.0-16.0); Mean Corpuscular Hemoglobin 31.5 pg (25.0-34.0); Mean Corpuscular Hgb Conc 33.7 g/dL (32.0-36.0); Mean Corpuscular Volume 93.3 fL (80.0-100.0); Mean Platelet Volume 9.6 fL (9.4-12.4); Platelet Count 336 K/uL (130-400); RDW Coefficient of Variation 12.4 % (11.5-14.5); RDW Standard Deviation 42.6 fL (36.4-46.3); Red Blood Count 4.35 M/uL (4.20-5.40); White Blood Count 8.07 K/ul (4.8-10.8)
[2023-09-13 05:15] LABS: BUN Creatinine Ratio 9.7 (10-20); Calcium 9.6 mg/dl (8.6-10.3); Creatinine Clr Calc Pharmacy 61.5 ml/min; Est GFR (African American) 98.3 ml/min; Est GFR (Non-African American) 84.9 ml/min; Magnesium 2.1 mg/dl (1.7-2.4); Phosphorus 3.4 mg/dl (2.5-4.9); Potassium 3.9 mmol/L (3.5-5.1)
--- NOTE | 2023-09-13 10:31 | Electrocardiogram Report ---
Test Reason : Blood Pressure : / mmHG Vent. Rate : 074 BPM Atrial Rate : 074 BPM P-R Int : 156 ms QRS Dur : 070 ms QT Int : 442 ms P-R-T Axes : 035 029 002 degrees QTc Int : 490 ms Normal sinus rhythm Old Anteroseptal infarct (cited on or before 22-JUL-2023) T wave abnormality, consider anterior ischemia Abnormal ECG When compared with ECG of 12-SEP-2023 05:07, No significant change Confirmed by Juan Jose Churchill ([id number]) on 09/13/2023 10:30:58 AM Referred By: REFERRED SELF Confirmed By:Juan Jose Churchill
--- NOTE | 2023-09-13 10:46 | Cardiology Progress Note ---
Date of Service September 13, 2023 Assessment & Plan (1) Hypertensive urgency: (2) Elevated troponin: (3) Acute electrocardiogram changes: Plan: 72-year-old female with history of noncompliance and bipolar disorder presents with symptomatic uncontrolled hypertension in the setting of nonadherence with medication regimen. Denies chest discomfort or any overt anginal symptoms. Initially treated with IV heparin due to elevated troponin and diffuse pain including chest discomfort on admission. CT of the abdomen pelvis suggesting possible appendicitis. Patient without chest discomfort since admission. ECG demonstrating anterior T wave abnormality. Findings suggest stress-induced event (possible Takotsubo), demand ischemia in the setting of hypertensive urgency, beta-jeri withdrawal and/or acute coronary syndrome. Refusing IV heparin. Documented intolerance/allergy to aspirin. Preliminary review of bedside echocardiogram demonstrates borderline hyperdynamic LV systolic function without regional wall motion abnormality. Recommend continued conservative medical management with metoprolol succinate 50 mg twice daily, and losartan 25 mg daily. Consider addition of low-dose aspirin if patient agreeable. Admission and Anticipated Discharge Date Admission Date: September 11, 2023 Subjective 72-year-old female seen and examined at the bedside. Denies chest pain or shortness of breath. Remains in sinus rhythm on telemetry. Continues to report ongoing abdominal discomfort. Denies lightheadedness, dizziness, orthopnea, or PND. Refusing IV heparin overnight. Extensive allergy list reviewed. Review of Systems Review of Systems: All systems reviewed & are unremarkable except as noted in Subjective Physical Exam Constitutional: well nourished; no acute distress Respiratory: no respiratory distress, no labored breathing and no retractions Auscultation: lungs clear to auscultation bilaterally; no crackles, no rales, no rhonchi and no wheezes Cardiovascular: Rate/Rhythm: regular rate and regular rhythm Heart Sounds: normal S1 and normal S2; no murmur Extremities: no edema Gastrointestinal (Abdomen): Inspection/Auscultation: abdomen not distended Percussion/Palpation: + abdomen tender; no guarding and abdomen not rigid Neurologic: CN's II-XI intact bilaterally and moves all extremities; no focal motor deficits Psychiatric: Affect: + anxious affect Results & Data Vital Signs (Past 12 Hours) Vital Signs Temp Pulse Pulse Resp BP Pulse Ox O2 Del Method 09/13/23 08:40 36.3 C L 69 21 163/72 H 92 Room Air 09/13/23 07:00 77 02/09/24 02:45 84 18 183/85 H 95 Room Air 09/13/23 02:03 75 09/12/23 23:32 36.6 C 110 H 18 124/78 96 Room Air Laboratory Results CBC 09/13/23 Range/Units 04:02 WBC 8.07 (4.8-10.8) K/ul RBC 4.35 (4.20-5.40) M/uL Hgb 13.7 (12.0-16.0) g/dl Hct 40.6 (37.0-47.0) % Plt Count 336 (130-400) K/uL Comprehensive Metabolic Panel 09/13/23 Range/Units 04:02 Sodium 135 L (136-145) mmol/L Potassium 3.9 (3.5-5.1) mmol/L Chloride 103 (98-107) mmol/L Carbon Dioxide 23 (21-32) mmol/L BUN 7 (6-23) mg/dl Creatinine 0.72 (0.6-1.2) mg/dl Glucose 95 (70-99(Fasting)) mg/dl Calcium 9.6 (8.6-10.3) mg/dl Intake and Output 09/12/23 09/13/23 09/13/23 22:59 06:59 14:59 Intake Total 1207.900 / 1657.900 450 / 1657.900 Output Total 2 / 2 Balance 1207.900 / 1657.900 450 / 1657.900 -2 / -2 Intake: IV 811.900 / 861.900 50 / 861.900 Heparin Sodium/Dextrose 25,000 94.900 / 94.900 units In 500 ml @ 0 UNITS/HR IV .Q0M [facility] Rx#:[id number] Nss + 20Meq KCl 20 meq In 1,000 717 / 717 ml @ 60 mls/hr IV .[id number] Rx#:[id number] cefTRIAXone SODIUM 2,000 mg In 50 / 50 Dextrose 5 % Mini-B 50 ml @ 100 mls/hr IV Q24H [facility] Rx#: [id number] Oral 396 / 796 400 / 796 Output: # Bowel Movements 2 / 2 Other: # Unmeasured Voids 2 2 Weight 53.4 kg Weight Measurement Method Standing Scale ECG Additional Comments: ECG: Sinus rhythm with anterior T wave abnormality.
--- NOTE | 2023-09-13 11:31 | Surgery Progress Note ---
<Statement entered by Ashish Loving, DO - 09/13/23 16:49> Patient would like to go home. She is refusing treatments. She is aware that this is not an acute appendicitis but needs could be a nodule in the appendix. While I do not think this is the cause of her GI issues as she has a long h/o many. Patient is not interested in this either. She may follow up with GI and myself should she become amenable to further work up and evaluation. Date of Service September 13, 2023 Assessment & Plan (1) Abdominal pain: Plan: Patient here with abdominal pain CT scan initially questioned possible tip appendicitis, however pain is not localized to this region, she is afebrile with normal WBC and history does not correlate. suspicions are low she reports ongoing abdominal pain for weeks now, worse after eating, mostly cramping in the RUQ region. A RUQ US was obtained and was negative for pathology Her abdomen is soft, non distended, and reports generalized discomfort to palpation but appears comfortable She is hungry, denies nausea/vomiting but had some dry heaves. She is having + non bloody BMs and gas she is okay for a diet from our standpoint. There are no indications for any surgical intervention at this time She reports a history of colitis in her family, last colonoscopy years ago. could consider GI workup for other causes of pain +/- colonoscopy at some point can follow peripherally, call with any questions/concerns pt seen/examined with dr. loving Admission and Anticipated Discharge Date Admission Date: September 11, 2023 Subjective Patient reports ongoing pain in her abdomen, primarily in the RUQ region, but it is generalized and goes into her back. Some gagging, but no nausea/vomiting. Passing gas and last BM was yesterday. No blood in her BM's. Reports feeling hungry. She states this discomfort has been going on for quite some time. Vague history, but believes she has multiple family members including her mother reporting a history of colitis. Mother has some sort of ostomy. Physical Exam Physical Exam: awake/alert, no acute distress Gastrointestinal (Abdomen): Inspection/Auscultation: abdomen not distended Percussion/Palpation: + abdomen tender (reports discomfort to palpation in abdomen, mostly RUQ) and abdomen soft; no guarding and abdomen not firm Results & Data Vital Signs (Past 12 Hours) Vital Signs Temp Pulse Pulse Resp BP Pulse Ox O2 Del Method 09/13/23 08:40 97.3 F L 69 21 163/72 H 92 Room Air 09/13/23 07:00 77 09/13/23 02:45 84 18 183/85 H 95 Room Air 09/13/23 02:03 75 09/12/23 23:32 97.9 F 110 H 18 124/78 96 Room Air PG Care Time/CCT Total # of Minutes Spent Total Time Spent with Patient: Total time spent is greater than 50% in coordination of care (as documented) at patient's floor/unit and/or counseling patient: Coding Level of Care Code 04449 SUB INP/OBS CARE 25MIN Diagnoses Abdominal pain R10.9
--- NOTE | 2023-09-13 14:50 | Hospitalist Progress Note ---
Date of Service September 13, 2023 Assessment & Plan (1) Noncompliance with medication regimen: Plan 72-year-old lady with PMH of HTN, IBS, chronic pain disorder, anxiety, medicine noncompliance, PTSD, bipolar 1 disorder, schizoaffective disorder, drug dependence/abuse, suicide attempt by acetaminophen overdose, DVT came in with chest pain and hypertensive urgency. Of note, patient missed couple of days of home medication Lopressor as she could not refill. Patient says she is not depressed and does not want to see psychiatrist [patient was seen by psychiatry during admission in March 2023 and she refused psychiatric medication and was thought to she has capacity to make medical decisions]. At presentation BP was 220 over 120 mmHg. Troponin was 26. She is a poor historian. She is being managed for the following: Hypertensive urgency: Secondary to medication noncompliance/inability to refill Lopressor. Home dose Lopressor resumed, losartan added. Has multiple drug allergies. Hydralazine as needed. Patient declining losartan. Has been counseled in depth the need for blood pressure control to avoid complications. She understands but she does not want additional blood pressure medications for now. Will continue to follow. Chest discomfort/likely demand ischemia: Patient complained of chest pressure at presentation but she does have chronic pain disorder and has generalized body pain. Troponin was elevated at 26---220---97. EKG and echo reviewed. Cardiology evaluated, repeat echo 09/13 with no regional wall motion abnormality. Continue telemetry monitoring. Patient declined heparin drip and hence was discontinued. Patient declined aspirin. Concern for UTI: UCx pending. c/w rocephin 09/12. Concern for Tip Appendicitis: Pt evaled for abd pain overnight of 09/11-09/12. CTAP 09/12 concerning for tip appendicitis; 09/12 US RUQ wnl. Gen Sx on board, diet resumed, advance as tolerated. Of note, pt has chronic abdominal pain. Patient has declined possibility of scope for her chronic abdominal pain. Psychiatric illnesses [see above]: Currently not on any medication. Seen by psychiatry in the past/has refused medications. Reported anxiety, hence buspirone was started. She initially took it and then declined further doses. History of medicine noncompliance: Continue to encourage compliance and importance of long-term benefits of taking medications appropriately. Noncompliance is extreme in her case. She remains alert and oriented and understands the risks of noncompliance. DVT prophylaxis: Lovenox subcu Disposition: PT/OT, CM to assist with DC plan DNR/DNI Admission and Anticipated Discharge Date Admission Date: September 11, 2023 Subjective Patient was seen and examined at bedside. Patient was sitting up in bed, on room air, not in any acute distress. Per RN patient has been declining necessary medical treatments including heparin drip and blood pressure medications and bowel regimen. Patient explained the need for heparin drip in the interim while we were ruling out ACS, patient reports that she does not want any injection and does not want heparin drip and is claiming that she has allergic reaction to heparin. Similarly patient was explained the need for additional blood pressure medication as her blood pressure is not well-controlled, patient refuses additional blood pressure medications. Patient is aware that her blood pressure is high and can lead to stroke or heart attack and can even cause . She understands but she declines for now and states that she will think about it. She has declined laxatives and other necessary medical interventions. She continues to complain abdominal pain, denies chest pain or tightness. She reports her abdominal pain is chronic and upon discussion in detail, she would not want scope even if she were evaluated by GI and recommended such. She declines aspirin citing past allergic reactions. Physical Exam Physical Exam: GENERAL: Alert and oriented x3. NAD, on RA. Appears ill/frail/weak/lean HEENT: No pallor, no icterus. Pupils equal, round and reactive to light. Oral mucosa moist. NECK: No JVD, no neck masses. HEART: S1 and S2 heard. Regular rate and rhythm. No murmur, no gallop. RESPIRATORY SYSTEM: Normal AP diameter. No accessory muscle use. No wheezing, no crackles. ABDOMEN: Soft, bowel sounds present, + tender diffuse (pt reports it being chronic), no distention. CENTRAL NERVOUS SYSTEM: No facial droop. Speech is clear. Obeys simple commands. Moves extremities. EXTREMITIES: No edema, no erythema seen. Results & Data Results & Data Vital Signs (Past 12 Hours) Vital Signs Temp Pulse Pulse Resp BP BP Pulse Ox 09/13/23 13:00 145/89 H 09/13/23 11:48 36.7 C 87 18 181/136 H 205/109 H 97 09/13/23 08:40 36.3 C L 69 21 163/72 H 92 09/13/23 07:00 77 09/13/23 02:45 84 18 183/85 H 95 O2 Del Method 09/13/23 13:00 09/13/23 11:48 Room Air 09/13/23 08:40 Room Air 09/13/23 07:00 09/13/23 02:45 Room Air
[2023-09-13] MEDS: SIMETHICONE 80 MG CHEW PO PRN (17:47)
[2023-09-14 06:22] LABS: BUN Creatinine Ratio 15.5 (10-20); Calcium 9.4 mg/dl (8.6-10.3); Est GFR (Non-African American) 86.3 ml/min; Potassium 3.8 mmol/L (3.5-5.1)
--- NOTE | 2023-09-14 11:06 | Cardiology Progress Note ---
Date of Service September 14, 2023 Assessment & Plan (1) Hypertensive urgency: (2) Elevated troponin: (3) Acute electrocardiogram changes: Plan: 72-year-old female with history of noncompliance and bipolar disorder presents with symptomatic uncontrolled hypertension in the setting of nonadherence with medication regimen. Denies chest discomfort or any overt anginal symptoms. Initially treated with IV heparin due to elevated troponin and diffuse pain including chest discomfort on admission. CT of the abdomen pelvis suggesting possible appendicitis. Evaluated by general surgery who recommends conservative management. Patient without chest discomfort since admission. ECG demonstrating anterior T wave abnormality. Findings suggest stress-induced event (possible Takotsubo), demand ischemia in the setting of hypertensive urgency, beta-jeri withdrawal. Medical management limited due multiple drug allergies. Refusing IV heparin. Documented intolerance/allergy to aspirin. Repeat echocardiogram performed 09/13/2023 demonstrates preserved LV systolic function. Preliminary review of bedside echocardiogram demonstrates borderline hyperdynamic LV systolic function without regional wall motion abnormality. Recommend continued conservative medical management with metoprolol succinate 50 mg twice daily, and losartan 25 mg daily. Admission and Anticipated Discharge Date Admission Date: September 11, 2023 Subjective Patient seen and examined at the bedside. No chest discomfort or unusual shortness of breath. Abdominal discomfort improving. Telemetry reveals sinus rhythm in the 60s to 90s. Labile blood pressures recorded associated with agitation. Borderline hypotensive this a.m. Offers no new concerns/complaints. Reports intolerance to aspirin. Declined IV heparin during hospitalization due to perceived side effects. Review of Systems Review of Systems: All systems reviewed & are unremarkable except as noted in Subjective Physical Exam Constitutional: well nourished; no acute distress Respiratory: no respiratory distress, no labored breathing and no retractions Auscultation: lungs clear to auscultation bilaterally; no crackles, no rales, no rhonchi and no wheezes Cardiovascular: Rate/Rhythm: regular rate and regular rhythm Heart Sounds: normal S1 and normal S2; no murmur Extremities: no edema Gastrointestinal (Abdomen): Inspection/Auscultation: abdomen not distended Percussion/Palpation: + abdomen tender; no guarding and abdomen not rigid Neurologic: CN's II-XI intact bilaterally and moves all extremities; no focal motor deficits Psychiatric: Affect: + anxious affect Results & Data Vital Signs (Past 12 Hours) Vital Signs Temp Pulse Pulse Resp BP Pulse Ox O2 Del Method 09/14/23 08:04 36.9 C 71 18 99/53 L 98 Room Air 09/14/23 02:45 36.5 C 85 18 155/83 H 96 Room Air 09/14/23 00:00 97 H 09/13/23 23:32 36.6 C 94 H 18 160/70 H 95 Room Air Laboratory Results Comprehensive Metabolic Panel 09/14/23 Range/Units 04:42 Sodium 135 L (136-145) mmol/L Potassium 3.8 (3.5-5.1) mmol/L Chloride 104 (98-107) mmol/L Carbon Dioxide 21 (21-32) mmol/L BUN 11 (6-23) mg/dl Creatinine 0.71 (0.6-1.2) mg/dl Glucose 125 H (70-99(Fasting)) mg/dl Calcium 9.4 (8.6-10.3) mg/dl Intake and Output 09/13/23 09/14/23 09/14/23 22:59 06:59 14:59 Intake Total 360 / 760 400 / 760 Balance 360 / 758 400 / 758 Intake: IV 0 / 50 50 / 50 Heparin Sodium/Dextrose 25,000 0 / 0 units In 500 ml @ 0 UNITS/HR IV .Q0M [facility] Rx#:[id number] cefTRIAXone SODIUM 2,000 mg In 50 / 50 Dextrose 5 % Mini-B 50 ml @ 100 mls/hr IV Q24H [facility] Rx#: [id number] Oral 360 / 710 350 / 710 Other: Weight 53.3 kg
--- NOTE | 2023-09-14 12:18 | Discharge Summary ---
Date of Service September 14, 2023 Admission HPI Per Admitting Provider 72F with PMH significant for HTN,IBS,chronic pain disorder,Anxiety,Medical non compliance, PTSD,Bipolar I disorder,Schizoaffective disorder, Hx of Drug dependence abuse,Hx of suicide attempt by acetaminophen overdose, Hx of DVT comes with chest pain and HTN urgency. Patient missed couple of days of Lopressor as she could not refill. Tearful that she is tired and hurt all over. Says having cramps in chest, abdomen and back. Afebrile. Constantly says same thing. Says not depressed and doesn't want to see psychiatrist. BP was 220/120's in ER when she came in . Troponin 26.Poor historian.Says her living condition is poor and tearful. Not able to get much history from patient.She was admitted on 04/04/23 for HTN urgency and chest discomfort.Seen by psychiatry during that admission and she refused psych meds and was thought she has capacity to make medical decisions. Past medical history as mentioned above Past surgical history cystoscopy, EGD with biopsy, IVC filter, tonsillectomy. Social history lives alone. Smokes 1.5 packs a day for 37 years as per epic. Currently no alcohol use as per epic no drug use. As per [facility] she is on disability and Social Security because of physical and emotional reasons. Family history mother has colon cancer, stroke, high lipids. Father had diabetes bypass wall, blood clot. Sister has anxiety Admission Exam Per Admitting Provider General- Tearful Head- atraumatic Eyes- PERRL. ENT- oropharynx clear Neck- supple, no JVD. Lungs- clear to auscultation no wheezing or crackles Heart- regular rhythm; no murmur, no gallop. Abdomen- normal bowel sounds, soft, nontender, no distension. Extremities- no pretibial edema, no erythema seen. Neuro- alert, oriented x 3; PERRL, no facial palsy; no dysarthria; moves extremities. Skin- warm & dry Principal Diagnosis Hypertensive urgency Concern for ACS, ruled out Concern for UTI Chronic abdominal pain Psychiatric illnesses Major noncompliance to medications Discharge Exam GENERAL: Alert and oriented x3. NAD, on RA. Appears ill/frail/weak/lean HEENT: No pallor, no icterus. Pupils equal, round and reactive to light. Oral mucosa moist. NECK: No JVD, no neck masses. HEART: S1 and S2 heard. Regular rate and rhythm. No murmur, no gallop. RESPIRATORY SYSTEM: Normal AP diameter. No accessory muscle use. No wheezing, no crackles. ABDOMEN: Soft, bowel sounds present, + tender diffuse (pt reports it being chronic) x mild, no distention. CENTRAL NERVOUS SYSTEM: No facial droop. Speech is clear. Obeys simple commands. Moves extremities. EXTREMITIES: No edema, no erythema seen. Discharge Data Allergies Allergy/AdvReac Type Severity Reaction Status Date / Time atropine Allergy Severe castillo, hard Verified 09/11/23 08:20 time breathing clonidine Allergy Severe RAISES Verified 09/11/23 08:20 B.P., ANXIOUSNESS diphenhydramine Allergy Severe "I ALMOST Verified 09/11/23 08:20 ." hyoscyamine Allergy Severe castillo, hard Verified 09/11/23 08:20 time breathing labetalol Allergy Severe swelling,loss Verified 09/11/23 08:20 of taste,itch, rash phenobarbital Allergy Severe castillo, hard Verified 09/11/23 08:20 time breathing prednisone Allergy Severe Edema Verified 09/11/23 08:20 face,lips and tongue. scopolamine Allergy Severe castillo, hard Verified 09/11/23 08:20 time breathing enoxaparin Allergy Intermediate RASH Verified 09/11/23 08:20 levofloxacin Allergy Intermediate ARM TURNED Verified 09/11/23 08:20 "FIREY RED" WHEN INFUSED, CLEARED IN A FEW HOURS tramadol Allergy Intermediate blisters Verified 09/11/23 08:20 all over warfarin Allergy Intermediate rash Verified 09/11/23 08:20 chlorpromazine Allergy Mild TOLERATING Verified 09/11/23 08:20 PROLIXIN AT HOME 01/15/08 coumarin Allergy Unknown UNKNOWN Verified 09/11/23 08:20 naproxen Allergy Unknown Abdominal Verified 09/11/23 08:20 Pain Penicillins Allergy Unknown Unknown Verified 09/11/23 08:20 morphine AdvReac Severe SHOCK;TOLERATES Verified 09/11/23 08:20 DEMEROL/PASSED OUT amitriptyline AdvReac Intermediate Nausea/vomi Verified 09/11/23 08:20 timg amlodipine AdvReac Intermediate Hypotension Verified 09/11/23 08:20 aspirin AdvReac Intermediate BLEEDING Verified 09/11/23 08:20 codeine AdvReac Intermediate BP DROPS Verified 09/11/23 08:20 AND PASSES OUT dicyclomine AdvReac Intermediate GI SYMPTOMS Verified 09/11/23 08:20 hydralazine AdvReac Intermediate palpitations Verified 09/11/23 08:20 as per px ibuprofen AdvReac Intermediate BLEEDING/ED Verified 09/11/23 08:20 ELLIOT lisinopril AdvReac Intermediate COUGH Verified 09/11/23 08:20 nitrofurantoin AdvReac Intermediate hallucinati Verified 09/11/23 08:20 ng Consultations 09/11/23 05:40 ED Decision to Admit Stat 09/11/23 08:00 Consult Cardiology Routine 09/12/23 03:18 Consult General Surgery Routine Ordered Studies 09/12/23 00:12 CT Abd and Pelvis [CT abd pelvis IV con only] Stat 09/12/23 05:58 US GB [US gallbladder] Stat Hospital Course (1) Noncompliance with medication regimen: Plan 72-year-old lady with PMH of HTN, IBS, chronic pain disorder, anxiety, medicine noncompliance, PTSD, bipolar 1 disorder, schizoaffective disorder, drug dep endence/abuse, suicide attempt by acetaminophen overdose, DVT came in with chest pain and hypertensive urgency. Of note, patient missed couple of days of home medication Lopressor as she could not refill. Patient says she is not depressed and does not want to see psychiatrist [patient was seen by psychiatry during admission in March 2023 and she refused psychiatric medication and was thought to she has capacity to make medical decisions]. At presentation BP was 220 over 120 mmHg. Troponin was 26. She is a poor historian. She was managed for the following: Hypertensive urgency: Secondary to medication noncompliance/inability to refill Lopressor. Home dose Lopressor resumed, losartan added. Has multiple drug allergies. Hydralazine as needed. Patient declining losartan. Has been counseled in depth the need for blood pressure control to avoid complications. She understands but she does not want additional blood pressure medications for now. Pt advised to establish with pcp and follow up in a week time for prison management. Chest discomfort/likely demand ischemia: Patient complained of chest pressure at presentation but she does have chronic pain disorder and has generalized body pain. Troponin was elevated at 26---220---97. EKG and echo reviewed. Cardiology evaluated, repeat echo 09/13 with no regional wall motion abnormality. Patient declined heparin drip and hence was discontinued. Patient declined aspirin. Pt to establish w/ cardio and f/u for joint terminal attack controller management. Concern for UTI: UCx pending. c/w rocephin 09/12. to po atb on dc to complete the course. Concern for Tip Appendicitis: Pt evaled for abd pain overnight of 09/11-09/12. CTAP 09/12 concerning for tip appendicitis; 09/12 US RUQ wnl. Gen Sx on board, diet resumed, advance as tolerated. Pt tolerated diet well. Of note, pt has chronic abdominal pain. Patient has declined possibility of scope for her chronic abdominal pain. Pt states she is ready to go home and her belly pain is chronic and she doesn't want anything to be done for this. Psychiatric illnesses [see above]: Currently not on any medication. Seen by psychiatry in the past/has refused medications. Reported anxiety, hence buspirone was started. She initially took it and then declined further doses. History of medicine noncompliance: Continue to encourage compliance and importance of long-term benefits of taking medications appropriately. Noncompliance is extreme in her case. She remains alert and oriented and understands the risks of noncompliance. DVT prophylaxis: Lovenox subcu Disposition: PT/OT, CM to assist with DC plan DNR/DNI Patient is being discharged with following instruction at the point of discharge: Follow-up with your primary care physician within a week time and likely you will need labs CBC/CMP/magnesium/phosphorus. You have been offered the possibility of scope/GI evaluation for your chronic abdominal pain which you declined. If you change your mind, you will benefit from evaluation by GI doctor, coordinate with your PCP office to set up the referral. You will be continuing your prior to arrival medications. You will be discharged on 2 days worth of antibiotic to complete treatment for UTI. Further medications for blood pressure management and anxiety management will be ordered. It is highly recommended that you establish with your psychiatry and follow-up with them in 2 to 4 weeks time upon discharge. I highly encourage you to be compliant with your medications and be more serious with medical recommendations. Follow-up with cardiology in 2 to 4 weeks time upon discharge. Take your medications as prescribed. Please make sure that you are able to get your medications today by calling your pharmacy before you leave the hospital so that your treatment continuity is not broken. Home Health Attestation I certify that this patient is under my care and that I, or a physicians head start assistant teacher working with me, had a face to-face encounter that meets the home health [id number] encounter requirements with this patient. The encounter with the patient was in whole, or in part, for the following medical condition, which is the primary reason for home health care (list medica l condition): I certify that, based on my findings, the following services are medically necessary home health services: My clinical findings support the need for the above services because: Further, I certify that my clinical findings support that this patient is homebound (i.e. absences from home require considerable and taxing effort and are for medical reasons or muslim services or infrequently or of short duration when for other reasons) because: Certification for Home Health Services: Based on the above findings, I certify that this patient is confined to the home and needs intermittent long-term care, physical therapy and/or speech therapy or continues to need occupational therapy. The patient is under my care, and I have initiated the establishment of the plan of care. This patient will be followed by a physician who will periodically review the plan of care. Total Time Total Time Spent Total Time Spent (In Minutes): 45 Discharge Plan Discharge Items Patient Disposition: Home - Self-Care Reason For Visit: HYPERTENSION Discharge Diagnosis: Hypertensive urgency Concern for ACS, ruled out Concern for UTI Chronic abdominal pain Psychiatric illnesses Major noncompliance to medications Activity: Resume your previous activity Non-emergency contact: Primary Care Provider Call non-emergency contact if: you have any medication questions, your symptoms worsen and your temperature is above 101.5 Follow-up/Referrals: PCP,NO [Primary Care Provider] - Diet: Heart Healthy Addtl Attending Provider Instructions: Follow-up with your primary care physician within a week time and likely you will need labs CBC/CMP/magnesium/phosphorus. You have been offered the possibility of scope/GI evaluation for your chronic abdominal pain which you declined. If you change your mind, you will benefit from evaluation by GI doctor, coordinate with your PCP office to set up the referral. You will be continuing your prior to arrival medications. You will be discharged on 2 days worth of antibiotic to complete treatment for UTI. Further medications for blood pressure management and anxiety management will be ordered. It is highly recommended that you establish with your psychiatry and follow-up with them in 2 to 4 weeks time upon discharge. I highly encourage you to be compliant with your medications and be more serious with medical recommendations. Follow-up with cardiology in 2 to 4 weeks time upon discharge. Take your medications as prescribed. Please make sure that you are able to get your medications today by calling your pharmacy before you leave the hospital so that your treatment continuity is not broken. Pending Studies at Discharge: No Stand-Alone Forms: My [facility], Smoking Cessation Medications and DC Order Prescriptions: New losartan 25 mg Tablet 25 mg PO QAM Qty: 30 0RF buspirone 7.5 mg Tablet 7.5 mg PO BID Qty: 60 0RF cefdinir 300 mg capsule 300 mg PO BID 2 Days Qty: 4 0RF Continued metoprolol succinate 50 mg tablet extended release 24 hr 50 mg PO BID Qty: 180 0RF Rx Instructions: Patient needs 90day supply of medication due to her being homeless and not able to make it to a pharmacy every month as she's not sure if she'll be in a motel or on the streets. Discharge Orders: Discharge Order (Routine); Ordered 09/14/23 Ordered By: Junito Son Admission Data Admit Date/Time: 09/11/23 06:49 Attending Provider: Junito Son Admit Provider: Scooby Delvalle Primary Care Provider: PCP,NO Other Providers: Scooby Delvalle; Armaan Schwartz Cosetta; William Stratton; Johan Reddy; Philip Sharma; Sam Day; Ann Allen; Yuan Cutler; Nikolas Blank; Ashish Miguel; Luis Hale
--- NOTE | 2023-09-14 16:20 | Hospitalist Progress Note ---
Date of Service September 14, 2023 Assessment & Plan (1) Noncompliance with medication regimen: Plan 72-year-old lady with PMH of HTN, IBS, chronic pain disorder, anxiety, medicine noncompliance, PTSD, bipolar 1 disorder, schizoaffective disorder, drug dependence/abuse, suicide attempt by acetaminophen overdose, DVT came in with chest pain and hypertensive urgency. Of note, patient missed couple of days of home medication Lopressor as she could not refill. Patient says she is not depressed and does not want to see psychiatrist [patient was seen by psychiatry during admission in March 2023 and she refused psychiatric medication and was thought to she has capacity to make medical decisions]. At presentation BP was 220 over 120 mmHg. Troponin was 26. She is a poor historian. She was managed for the following: Hypertensive urgency: Secondary to medication noncompliance/inability to refill Lopressor. Home dose Lopressor resumed, losartan added. Has multiple drug allergies. Hydralazine as needed. Patient declining losartan. Has been counseled in depth the need for blood pressure control to avoid complications. She understands but she does not want additional blood pressure medications for now. Pt advised to establish with pcp and follow up in a week time for half-way management. Chest discomfort/likely demand ischemia: Patient complained of chest pressure at presentation but she does have chronic pain disorder and has generalized body pain. Troponin was elevated at 26---220---97. EKG and echo reviewed. Cardiology evaluated, repeat echo 09/13 with no regional wall motion abnormality. Patient declined heparin drip and hence was discontinued. Patient declined aspirin. Pt to establish w/ cardio and f/u for custodial management. Concern for UTI: UCx pending. c/w rocephin 09/12. to po atb on dc to complete the course. Concern for Tip Appendicitis: Pt evaled for abd pain overnight of 09/11-09/12. CTAP 09/12 concerning for tip appendicitis; 09/12 US RUQ wnl. Gen Sx on board, diet resumed, advance as tolerated. Pt tolerated diet well. Of note, pt has chronic abdominal pain. Patient has declined possibility of scope for her chronic abdominal pain. Pt states she is ready to go home and her belly pain is chronic and she doesn't want anything to be done for this. Pt was discharged but per her senior property manager pt can't take care of self and hence discharge cancelled. Psychiatric illnesses [see above]: Currently not on any medication. Seen by psychiatry in the past/has refused medications. Reported anxiety, hence buspir one was started. She initially took it and then declined further doses. History of medicine noncompliance: Continue to encourage compliance and importance of long-term benefits of taking medications appropriately. Noncompliance is extreme in her case. She remains alert and oriented and understands the risks of noncompliance. Unable to self care: per pt's senior property manager who reports is in touch w/ [employer] for computer terminal operator placement for her. Jovan would like to speak w/ CM on Saturday. DVT prophylaxis: Lovenox subcu Disposition: PT/OT, CM to assist with DC plan DNR/DNI Admission and Anticipated Discharge Date Admission Date: September 11, 2023 Subjective Patient was seen and examined at bedside. Patient was sitting up in bed, on room air, not in any acute distress. Per RN patient has been declining necessary medical treatments which included heparin drip and blood pressure medications and bowel regimen. Patient was re-counseled in depth regarding the need for medical compliance. She is able to comprehend and understand the poor outcome secondary to medical noncompliance but declines to take recommended medication understanding that she is predisposing herself to bad outcome. She states she believes only in herbal medications. She remains AOx4, states improved chest tightness and has chronic belly pain which she reports is her baseline and she states she wants to be discharged. She states she only wants her metoprolol. She has denied suicidal and homicidal ideation. Patient wanted to go home today and has been declining treatment while in hospital. Patient asked me to send her medication to [facility] for 90-day supply because she is homeless and she moves and does not have a specific address and 1 month supply will make her difficult to get further medication. Patient also states that she used to get home delivery of medication which has been difficult as she does not have a place to live permanently. Pt's senior care manager Jovan was upset that she has never gotten chance to speak w/ [employer] and doesn't feel patient is safe to be discharged as she doesn't have place to live. She also states she has been talking w/ [employer] regarding her computer terminal operator placement. Discharge was canceled. Physical Exam Physical Exam: GENERAL: Alert and oriented x3. NAD, on RA. Appears ill/frail/weak/lean HEENT: No pallor, no icterus. Pupils equal, round and reactive to light. Oral mucosa moist. NECK: No JVD, no neck masses. HEART: S1 and S2 heard. Regular rate and rhythm. No murmur, no gallop. RESPIRATORY SYSTEM: Normal AP diameter. No accessory muscle use. No wheezing, no crackles. ABDOMEN: Soft, bowel sounds present, + tender diffuse (pt reports it being chronic) x mild, no distention. CENTRAL NERVOUS SYSTEM: No facial droop. Speech is clear. Obeys simple commands. Moves extremities. EXTREMITIES: No edema, no erythema seen. Results & Data Results & Data Vital Signs (Past 12 Hours) Vital Signs Temp Pulse Pulse Resp BP BP Pulse Ox 09/14/23 14:35 36.7 C 74 18 123/78 205/109 H 97 09/14/23 11:26 36.7 C 74 18 123/78 97 09/14/23 11:19 82 09/14/23 08:04 36.9 C 71 18 99/53 L 98 O2 Del Method 09/14/23 14:35 09/14/23 11:26 Room Air 09/14/23 11:19 09/14/23 08:04 Room Air
--- NOTE | 2023-09-14 16:26 | Communication Note ---
Date of Service: September 14, 2023 RN notified me that patient's hand singer Jovan would like to take her now and wanted her to be discharged. Hence discharge order placed.
== END 2023-09-14 17:42 | disposition home or self-care (01) | DRG 305 ==
LOC: ED 03:20 → EDINP 06:49 → 4W 07:51

== ENCOUNTER 2023-11-01 20:02 | Inpatient (IN) ==
--- NOTE | 2023-11-01 21:57 | Emergency Department Note ---
Impression & Plan HTN (hypertension) ADMIT ED Provider Note HPI: History obtained from patient, bedside RN via EMS report. The patient is a 73-year-old female with history of schizoaffective disorder, COPD, hypertension, presents the emergency department today via EMS with complaint of chest pain. Patient is a difficult historian, she continues to repeat over and over again that she "can't find my medicine". Per EMS report patient contacted EMS complaining of chest pain. On arrival here to the ED the patient was noted to be hypertensive at 214/110, she was mildly tachycardic at 116. On my initial assessment here in the ED the patient is anxious, she is able to communicate with me that she does have some chest discomfort but is unable to give details about her presentation. Patient is alert on arrival. ROS: - Per HPI Differential Diagnosis: Hypertensive urgency, acute coronary syndrome, anxiety attack//behavioral disorder, aortic dissection, pneumothorax, amongst other potential pathologies. *Outpatient medications and allergy history reviewed. 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 Lab work was drawn. Patient was given a dose of IV metoprolol as this was the only medication the patient would allow to be given for hypertension. Lab work shows no leukocytosis, hemoglobin is normal, platelet count is slightly high at 422. CMP and troponin are pending at the time of admission secondary to initially hemolyzed sample. Patient's blood pressure did downtrend here in the ED to 139/112 prior to admission and following a dose of IV metoprolol. Her heart rate also improved to 102 with the metoprolol. Patient is a slightly better historian on my reassessment, she states she does remember calling EMS and stated she had some chest discomfort and cannot find her regular prescription medications. I discussed the patient's presentation with her emergency contact, Jovan Guzman, who was made aware that the patient is here in the hospital. She stated that the patient otherwise does not maintain contact with her family and she is her only emergency contact. She states that she is currently paying for the patient to stay in the [facility]. I do feel that for the patient's own safety she should be admitted overnight for further management of hypertension and complaint of chest pain with the remainder of her lab work still pending at the time of admission. I did discuss the patient's presentation with the on-call hospitalist, Dr. Delvalle, and he is in agreement to admit the patient for further care. Patient is in agreement for admission and she is currently voluntary. She has previously been determined to have capacity to make her own medical decisions. [facility] Consultants/Discussions held with other healthcare providers: -Hospitalist, Dr. Delvalle Disposition discussion held by myself with: -Patient and emergency contact (Jovan Guzman) over the phone Diagnosis: 1. Hypertensive urgency, acute 2. History of schizoaffective disorder 3. Poor historian 4. Chest pain, acute, nonspecific 5. At risk for homelessness Disposition: Admission Anuel Padilla DO Emergency Medicine Past Med/Surg History Medical History Sedative, hypnotic or anxiolytic use disorder, severe, dependence benzodiazepines Opioid use disorder Schizoaffective disorder, bipolar type Cystic mass of pancreas DVT (deep venous thrombosis) High blood pressure Hypertensive urgency H/O drug abuse Tobacco abuse Hypertension COPD (chronic obstructive pulmonary disease) Posttraumatic stress disorder (01/14/13) Surgical History History of cystoscopy History of inferior vena caval filter placement Family History Father Myocardial infarction, Onset Age: 66 Diabetes Mother Stroke Colorectal cancer Other Family history non-contributory Social History Smoking Status: Current every day smoker Tobacco Type: E-cigarettes / Vaping Cigarettes Per Day: 1.5 PPD; Second Hand Exposure: No; Do You Dip or Chew Tobacco: No; Hx Alcohol Use: No Hx Substance Use: No Preferred Language: Italian Communication Ability: Effective Communication Ability Comment: needs frequent redirection to stay on task Visual Impairment: No Limitations Hearing Ability: Normal Fusing Line Inspector Required: No Beliefs That Will Affect Care: None marital status: Single Current Living Situation: Alone Current Living Situation Comment: Patient lives in hotel paid for by friend Feels Safe at Home: Declines to Answer Assistive Devices: None Allergies Allergies Allergy/AdvReac Type Severity Reaction Status Date / Time atropine Allergy Severe castillo, hard Verified 11/01/23 23:22 time breathing clonidine Allergy Severe RAISES Verified 11/01/23 23:22 B.P., ANXIOUSNESS diphenhydramine Allergy Severe "I ALMOST Verified 11/01/23 23:22 ." hyoscyamine Allergy Severe castillo, hard Verified 11/01/23 23:22 time breathing labetalol Allergy Severe swelling,loss Verified 11/01/23 23:22 of taste,itch, rash phenobarbital Allergy Severe castillo, hard Verified 11/01/23 23:22 time breathing prednisone Allergy Severe Edema Verified 11/01/23 23:22 face,lips and tongue. scopolamine Allergy Severe castillo, hard Verified 11/01/23 23:22 time breathing enoxaparin Allergy Intermediate RASH Verified 11/01/23 23:22 levofloxacin Allergy Intermediate ARM TURNED Verified 11/01/23 23:22 "FIREY RED" WHEN INFUSED, CLEARED IN A FEW HOURS tramadol Allergy Intermediate blisters Verified 11/01/23 23:22 all over warfarin Allergy Intermediate rash Verified 11/01/23 23:22 chlorpromazine Allergy Mild TOLERATING Verified 11/01/23 23:22 PROLIXIN AT HOME 01/15/08 coumarin Allergy Unknown UNKNOWN Verified 11/01/23 23:22 naproxen Allergy Unknown Abdominal Verified 11/01/23 23:22 Pain Penicillins Allergy Unknown Unknown Verified 11/01/23 23:22 morphine AdvReac Severe SHOCK;TOLERATES Verified 11/01/23 23:22 DEMEROL/PASSED OUT amitriptyline AdvReac Intermediate Nausea/vomi Verified 11/01/23 23:22 timg amlodipine AdvReac Intermediate Hypotension Verified 11/01/23 23:22 aspirin AdvReac Intermediate BLEEDING Verified 11/01/23 23:22 codeine AdvReac Intermediate BP DROPS Verified 11/01/23 23:22 AND PASSES OUT dicyclomine AdvReac Intermediate GI SYMPTOMS Verified 11/01/23 23:22 hydralazine AdvReac Intermediate palpitations Verified 11/01/23 23:22 as per px ibuprofen AdvReac Intermediate BLEEDING/ED Verified 11/01/23 23:22 ELLIOT lisinopril AdvReac Intermediate COUGH Verified 11/01/23 23:22 nitrofurantoin AdvReac Intermediate hallucinati Verified 11/01/23 23:22 ng Home Meds Home Medications Medication Instructions Recorded Confirmed aluminum-mag hydroxide-simethicone 10 ml PO DIRECTED PRN 11/01/23 11/01/23 200 mg-200 mg-20 mg/5 mL oral susp HEARTBURN/INDIGESTION camphor-menthol 0.2 %-3.5 % 1 applic topical BID PRN Pain 11/01/23 11/01/23 topical gel witch echo leaf (hamamelis) 1 applic topical DIRECTED PRN 11/01/23 11/01/23 (witch echo topical liquid) Hemorrhoids Previous Rx's Medication Instructions Recorded metoprolol succinate 50 mg 50 mg PO BID #180 tabs 09/14/23 tablet,extended release 24 hr Results & Data (ED) Vital Signs Vital Signs - 24 hr 11/01/23 20:05 11/01/23 20:07 11/01/23 20:08 Pulse Rate 96 H Pulse Rate [Right Finger] 121 H Respiratory Rate 22 15 Blood Pressure 214/110 H Blood Pressure [Right Arm] 214/110 H Blood Pressure Mean 144 Blood Pressure Mean [Right Arm] 144 Blood Pressure Position Sitting Blood Pressure Position [Right Arm] Sitting Pulse Oximetry 98 97 96 Oxygen Delivery Method Room Air Room Air Room Air Sepsis Recent Fever Within 48 Hours No Sepsis New/Unexplained Change in Mental Status N/A Sepsis Action Taken by Nursing No Action Required 11/01/23 20:11 11/01/23 21:04 11/01/23 21:59 Pulse Rate 116 H 118 H Pulse Rate [Right Finger] Respiratory Rate 16 Blood Pressure Blood Pressure [Right Arm] Blood Pressure Mean Blood Pressure Mean [Right Arm] Blood Pressure Position Blood Pressure Position [Right Arm] Pulse Oximetry 97 98 Oxygen Delivery Method Room Air Room Air Sepsis Recent Fever Within 48 Hours Sepsis New/Unexplained Change in Mental Status Sepsis Action Taken by Nursing 11/01/23 22:09 11/01/23 22:49 11/01/23 23:08 Pulse Rate 107 H Pulse Rate [Right Finger] 108 H 118 H Respiratory Rate 14 20 Blood Pressure 201/114 H Blood Pressure [Right Arm] 173/94 H 191/105 H Blood Pressure Mean Blood Pressure Mean [Right Arm] 120 133 Blood Pressure Position Blood Pressure Position [Right Arm] Pulse Oximetry 97 99 Oxygen Delivery Method Room Air Room Air Sepsis Recent Fever Within 48 Hours Sepsis New/Unexplained Change in Mental Status Sepsis Action Taken by Nursing Laboratory Data 11/01/23 22:25 11/01/23 22:25 Lab Results 11/01/23 Range/Units 22:25 WBC 7.27 (4.8-10.8) K/ul RBC 4.99 (4.20-5.40) M/uL Hgb 15.3 (12.0-16.0) g/dl Hct 46.5 (37.0-47.0) % MCV 93.2 (80.0-100.0) fL MCH 30.7 (25.0-34.0) pg MCHC 32.9 (32.0-36.0) g/dL RDW Std Deviation 42.8 (36.4-46.3) fL RDW Coeff of Blas 12.5 (11.5-14.5) % Plt Count 422 H (130-400) K/uL MPV 9.2 L (9.4-12.4) fL Immature Gran % (Auto) 0.3 % Neut % (Auto) 66.3 % Lymph % (Auto) 25.2 % Shoshone % (Auto) 7.2 % Eos % (Auto) 0.0 % Baso % (Auto) 1.0 % Neut # (Auto) 4.83 (1.40-6.50) K/uL Lymph # (Auto) 1.83 (1.20-3.40) K/uL Shoshone # (Auto) 0.52 (0.11-0.59) K/uL Eos # (Auto) 0.00 (0.00-0.50) K/uL Baso # (Auto) 0.07 (0.00-0.20) K/uL Immature Gran # (Auto) 0.02 (0.01-0.20) K/uL PT Cancelled INR Cancelled APTT Cancelled PTT Ratio Cancelled Sodium Cancelled Potassium Cancelled Chloride Cancelled Carbon Dioxide Cancelled Anion Gap Cancelled BUN Cancelled Creatinine Cancelled Est Cr Clr Drug Dosing Cancelled Est GFR ( Amer) Cancelled Est GFR (Non-Af Amer) Cancelled BUN/Creatinine Ratio Cancelled Glucose Cancelled Calcium Cancelled Total Bilirubin Cancelled AST Cancelled ALT Cancelled Alkaline Phosphatase Cancelled Troponin I High Sens Cancelled Total Protein Cancelled Albumin Cancelled Globulin Cancelled Albumin/Globulin Ratio Cancelled Administered Medications Discontinued Medications Hydralazine HCl (Hydralazine Hcl 20 Mg/Ml Vial) 10 mg IV NOW STA Stop: 11/01/23 21:56 Last Admin: 11/01/23 22:51 Dose: Not Given Documented By: SHANTHI Metoprolol Tartrate (Metoprolol Tartrate 1 Mg/Ml Vial) 5 mg IV NOW STA Stop: 11/01/23 23:03 Last Admin: 11/01/23 23:08 Dose: 5 mg Documented By: ROSELIA Discharge Plan Visit Data Chief Complaint: Chest Pain Stated Complaint: Chest Pain, Hypertension ED Provider: Anuel Padilla Discharge Problem: HTN (hypertension) Forms Stand Alone Forms: [facility] Prescriptions Prescriptions: No Action metoprolol succinate 50 mg tablet extended release 24 hr 50 mg PO BID Qty: 180 0RF Rx Instructions: Patient needs supply of medication due to her being homeless and not able to make it to a pharmacy every month as she's not sure if she'll be in a motel or on the streets. alum-mag hydroxide-simeth [Mylanta] 200-200-20 mg/5 mL Suspension 10 ml PO DIRECTED PRN (Reason: HEARTBURN/INDIGESTION) Rx Instructions: administer between meals and at bedtime witch echo leaf (hamamelis) [witch echo] Liquid 1 applic TOPICAL DIRECTED PRN (Reason: Hemorrhoids) Biofreeze 0.2-3.5 % Gel 1 applic TOPICAL BID PRN (Reason: Pain) Rx Instructions: rub in gently and completely Referrals Referrals: PCP,NO [Primary Care Provider] -
[2023-11-01 22:50] LABS: Basophils # (auto) 0.07 K/uL (0.00-0.20); Hematocrit (blood only) 46.5 % (37.0-47.0); Hemoglobin 15.3 g/dl (12.0-16.0); Immature Granulocytes # (auto) 0.02 K/uL (0.01-0.20); Immature Granulocytes % (auto) 0.3 %; Lymphocytes # (auto) 1.83 K/uL (1.20-3.40); Lymphocytes % (auto) 25.2 %; Mean Corpuscular Hemoglobin 30.7 pg (25.0-34.0); Mean Corpuscular Hgb Conc 32.9 g/dL (32.0-36.0); Mean Corpuscular Volume 93.2 fL (80.0-100.0); Mean Platelet Volume 9.2 fL (9.4-12.4); Monocytes # (auto) 0.52 K/uL (0.11-0.59); Monocytes % (auto) 7.2 %; Neutrophils # (auto) 4.83 K/uL (1.40-6.50); Neutrophils % (auto) 66.3 %; Platelet Count 422 K/uL (130-400); RDW Coefficient of Variation 12.5 % (11.5-14.5); RDW Standard Deviation 42.8 fL (36.4-46.3); Red Blood Count 4.99 M/uL (4.20-5.40); White Blood Count 7.27 K/ul (4.8-10.8)
[2023-11-01] MEDS: hydrALAZINE HCL 20 MG/ML VIAL IV STA (22:50)
[2023-11-01] MEDS: METOPROLOL TARTRATE 1 MG/ML VIAL IV STA (23:08)
[2023-11-02 01:05] LABS: Alanine Aminotransferase 15 U/L (7-52); Albumin Globulin Ratio 1.5 (0.9-2); Albumin Level 4.5 gm/dl (3.4-5.0); Alkaline Phosphatase 70 U/L (34-104); Anion Gap 9 (3-11); Aspartate Aminotransferase 16 U/L (13-39); BUN Creatinine Ratio 11.9 (10-20); Bilirubin,Total 0.5 mg/dl (0.2-1.0); Blood Urea Nitrogen 8 mg/dl (6-23); Calcium 9.7 mg/dl (8.6-10.3); Carbon Dioxide 24 mmol/L (21-32); Chloride 104 mmol/L (98-107); Est GFR (African American) 102.5 ml/min; Est GFR (Non-African American) 88.4 ml/min; Glucose 132 mg/dl (70-99(Fasting)); Potassium 3.7 mmol/L (3.5-5.1); Sodium 137 mmol/L (136-145); Total Protein 7.5 gm/dl (6.0-8.3)
[2023-11-02 01:12] LABS: Troponin I High Sensitivity 20.6 pg/ml (0-14)
[2023-11-02 01:20] LABS: Partial Thromboplastin Time 27 Seconds (21-31); Prothrombin Time 10.6 Seconds (9.0-12.0)
[2023-11-02] MEDS: METOPROLOL TARTRATE 50 MG TAB PO STA (02:02)
[2023-11-02] MEDS: NITROGLYCERIN 2% OINTMENT 30GM TUBE EXT SCH (02:03)
[2023-11-02] MEDS: LORazepam 1 MG TAB SL STA (02:03)
--- NOTE | 2023-11-02 02:16 | History & Physical Report ---
Date of Service November 02, 2023 Assessment & Plan (1) Hypertensive urgency: Plan: 73F with PMH significant for HTN,IBS,chronic pain disorder,Anxiety,Medical non compliance, PTSD,Bipolar I disorder,Schizoaffective disorder, COPD, Hx of Drug dependence abuse,Hx of suicide attempt by acetaminophen overdose, Hx of DVT comes with chest pain and HTN urgency. Patient states she could not see her metoprolol and was not taking it. She is tearful. States she hurts all over. She feels cramps in the chest and abdomen. Somewhat nauseous. And she states she coughs. Has headache . Vision is not great. Some runny nose. Feeling short of breath. Was able to ambulate okay in the ER for bathroom. She states normal bowel and bladder movements. Patient repeats same thing and seems anxious. She states short acting metoprolol works better. She is allergic to many medications. Refuses taking any other medication. But agreed to put on Nitropaste and was okay for a dose of Ativan. Poor historian and difficult to get history from the patient. Patient had similar presentation in September. Hypertensive urgency States Missed her Metoprolol Last admission she was also started on losartan Will restart her metoprolol and losartan Nitropaste Close monitor Chest pain Mild elevation troponin Will follow serial enzymes and echo Cardiology consult Telemetry COPD Tobacco abuse Nebs as needed Bipolar 1 disorder Schizoaffective disorder History of suicidal attempt Medical noncompliance Seems currently not on medications Will consult psychiatry Abdominal cramping Last admission there suspicion for tip appendicitis on ct scan But suspicion was low as per surgery Can consider repeat imaging DVT prophylaxis SCDs as patient allergy to Lovenox Disposition Telemetry Full code Addendum: Nitropaste stopped as BP seems dropping now. History of Present Illness Chief Complaint: 73F with PMH significant for HTN,IBS,chronic pain disorder,Anxiety,Medical non compliance, PTSD,Bipolar I disorder,Schizoaffective disorder, COPD, Hx of Drug dependence abuse,Hx of suicide attempt by acetaminophen overdose, Hx of DVT comes with chest pain and HTN urgency. Patient states she could not see her metoprolol and was not taking it. She is tearful. States she hurts all over. She feels cramps in the chest and abdomen. Somewhat nauseous. And she states she coughs. Has headache . Vision is not great. Some runny nose. Feeling short of breath. Was able to ambulate okay in the ER for bathroom. She states normal bowel and bladder movements. Patient repeats same thing and seems anxious. She states short acting metoprolol works better. She is allergic to many medications. Refuses taking any other medication. But agreed to put on Nitropaste and was okay for a dose of Ativan. Poor historian and difficult to get history from the patient. Patient had similar presentation in September. Past medical history as mentioned above Past surgical history cystoscopy, EGD with biopsy, IVC filter, tonsillectomy. Social history lives alone. Smokes 1.5 packs a day for 37 years as per epic. Currently no alcohol use as per epic no drug use. As per epic she is on disability and Social Security because of physical and emotional reasons. Family history mother has colon cancer, stroke, high lipids. Father had diabetes bypass wall, blood clot. Sister has anxiety Primary Care Provider: NO PCP Allergies Allergy/AdvReac Type Severity Reaction Status Date / Time atropine Allergy Severe castillo, hard Verified 11/01/23 23:22 time breathing clonidine Allergy Severe RAISES Verified 11/01/23 23:22 B.P., ANXIOUSNESS diphenhydramine Allergy Severe "I ALMOST Verified 11/01/23 23:22 ." hyoscyamine Allergy Severe castillo, hard Verified 11/01/23 23:22 time breathing labetalol Allergy Severe swelling,loss Verified 11/01/23 23:22 of taste,itch, rash phenobarbital Allergy Severe castillo, hard Verified 11/01/23 23:22 time breathing prednisone Allergy Severe Edema Verified 11/01/23 23:22 face,lips and tongue. scopolamine Allergy Severe castillo, hard Verified 11/01/23 23:22 time breathing enoxaparin Allergy Intermediate RASH Verified 11/01/23 23:22 levofloxacin Allergy Intermediate ARM TURNED Verified 11/01/23 23:22 "FIREY RED" WHEN INFUSED, CLEARED IN A FEW HOURS tramadol Allergy Intermediate blisters Verified 11/01/23 23:22 all over warfarin Allergy Intermediate rash Verified 11/01/23 23:22 chlorpromazine Allergy Mild TOLERATING Verified 11/01/23 23:22 PROLIXIN AT HOME 01/15/08 coumarin Allergy Unknown UNKNOWN Verified 11/01/23 23:22 naproxen Allergy Unknown Abdominal Verified 11/01/23 23:22 Pain Penicillins Allergy Unknown Unknown Verified 11/01/23 23:22 morphine AdvReac Severe SHOCK;TOLERATES Verified 11/01/23 23:22 DEMEROL/PASSED OUT amitriptyline AdvReac Intermediate Nausea/vomi Verified 11/01/23 23:22 timg amlodipine AdvReac Intermediate Hypotension Verified 11/01/23 23:22 aspirin AdvReac Intermediate BLEEDING Verified 11/01/23 23:22 codeine AdvReac Intermediate BP DROPS Verified 11/01/23 23:22 AND PASSES OUT dicyclomine AdvReac Intermediate GI SYMPTOMS Verified 11/01/23 23:22 hydralazine AdvReac Intermediate palpitations Verified 11/01/23 23:22 as per px ibuprofen AdvReac Intermediate BLEEDING/ED Verified 11/01/23 23:22 ELLIOT lisinopril AdvReac Intermediate COUGH Verified 11/01/23 23:22 nitrofurantoin AdvReac Intermediate hallucinati Verified 11/01/23 23:22 ng Home Medications Medication Instructions Recorded Confirmed Type metoprolol succinate 50 mg 50 mg PO BID #180 tabs 09/14/23 11/01/23 Rx tablet,extended release 24 hr aluminum-mag hydroxide-simethicone 10 ml PO DIRECTED PRN 11/01/23 11/01/23 History 200 mg-200 mg-20 mg/5 mL oral susp HEARTBURN/INDIGESTION camphor-menthol 0.2 %-3.5 % 1 applic topical BID PRN Pain 11/01/23 11/01/23 History topical gel witch echo leaf (hamamelis) 1 applic topical DIRECTED PRN 11/01/23 11/01/23 History (witch echo topical liquid) Hemorrhoids Past Med/Surg History Medical History Sedative, hypnotic or anxiolytic use disorder, severe, dependence benzodiazepines Opioid use disorder Schizoaffective disorder, bipolar type Cystic mass of pancreas DVT (deep venous thrombosis) High blood pressure Hypertensive urgency H/O drug abuse Tobacco abuse Hypertension COPD (chronic obstructive pulmonary disease) Posttraumatic stress disorder (01/14/13) Surgical History History of cystoscopy History of inferior vena caval filter placement Family History Father Myocardial infarction, Onset Age: 66 Diabetes Mother Stroke Colorectal cancer Other Family history non-contributory Social History Smoking Status: Current every day smoker Tobacco Type: E-cigarettes / Vaping Cigarettes Per Day: 1.5 PPD; Second Hand Exposure: No; Do You Dip or Chew Tobacco: No; Hx Alcohol Use: No Hx Substance Use: No Preferred Language: Persian Communication Ability: Effective Communication Ability Comment: needs frequent redirection to stay on task Visual Impairment: No Limitations Hearing Ability: Normal Control Systems Designer Required: No Beliefs That Will Affect Care: None marital status: Single Current Living Situation: Alone Current Living Situation Comment: Patient lives at motel paid by her friend Feels Safe at Home: Declines to Answer Assistive Devices: Apnea Monitor Review of Systems Review of Systems: Other Physical Exam Physical Exam: General- Not in distress, tearful Head- atraumatic Eyes- PERRL. ENT- oropharynx clear Neck- supple, no JVD. Lungs- diminished b/l breath sounds, no wheezing or crackles. Heart- regular rhythm; tachycardia,no murmur, no gallop. Abdomen- normal bowel sounds, soft, nontender, no distension. Extremities- no pretibial edema, no erythema seen. Neuro- alert, oriented ; PERRL, ; no facial palsy; no dysarthria; obeys simple commands, moves extremities Results & Data Results & Data Vital Signs (Past 12 Hours) Vital Signs Pulse Pulse Resp BP BP Pulse Ox O2 Del Method 11/02/23 00:30 104 H 212/172 H 11/02/23 00:14 100 H 11/02/23 00:08 96 H 14 139/112 H 96 Room Air 11/01/23 23:08 107 H 201/114 H 11/01/23 22:49 118 H 20 191/105 H 99 Room Air 11/01/23 22:09 108 H 14 173/94 H 97 Room Air 11/01/23 21:59 118 H 16 98 Room Air 11/01/23 21:04 97 Room Air 11/01/23 20:11 116 H 11/01/23 20:08 121 H 15 214/110 H 96 Room Air 11/01/23 20:07 97 Room Air 11/01/23 20:05 96 H 22 214/110 H 98 Room Air Diagnostic Findings Laboratory Results WBC 7.27 K/ul (4.8-10.8) 11/01/23 22: RBC 4.99 M/uL (4.20-5.40) 11/01/23 22:25 Hgb 15.3 g/dl (12.0-16.0) 11/01/23 22: Hct 46.5 % (37.0-47.0) 11/01/23 22: MCV 93.2 fL (80.0-100.0) 11/01/23: MCH 30.7 pg (25.0-34.0) 11/01/23: MCHC 32.9 g/dL (32.0-36.0) 11/01/23: RDW Std Deviation 42.8 fL (36.4-46.3) 11/01/23: RDW Coeff of Blas 12.5 % (11.5-14.5) 11/01/23: Plt Count 422 K/uL (130-400) H 11/01/23: MPV 9.2 fL (9.4-12.4) L 11/01/23: Immature Gran % (Auto) 0.3 % 11/01/23: Neut % (Auto) 66.3 % 11/01/23 22: Lymph % (Auto) 25.2 % 11/01/23 22: Eddy % (Auto) 7.2 % 11/01/23 22: Eos % (Auto) 0.0 % 11/01/23: Baso % (Auto) 1.0 % 11/01/23: Neut # (Auto) 4.83 K/uL (1.40-6.50) 11/01/23: Lymph # (Auto) 1.83 K/uL (1.20-3.40) 11/01/23: Eddy # (Auto) 0.52 K/uL (0.11-0.59) 11/01/23 22: Eos # (Auto) 0.00 K/uL (0.00-0.50) 11/01/23 22:25 Baso # (Auto) 0.07 K/uL (0.00-0.20) 11/01/23 22:25 Immature Gran # (Auto) 0.02 K/uL (0.01-0.20) 11/01/23 22:25 PT 10.6 Seconds (9.0-12.0) 11/02/23 00:33 INR 1.0 (0.9-1.1) 11/02/23 00:33 APTT 27 Seconds (21-31) 11/02/23 00:33 PTT Ratio 1.0 11/02/23 00:33 Sodium 137 mmol/L (136-145) 11/02/23 00:33 Potassium 3.7 mmol/L (3.5-5.1) 11/02/23 00: Chloride 104 mmol/L (98-107) 11/02/23 00: Carbon Dioxide 24 mmol/L (21-32) 11/02/23 00:33 Anion Gap 9 (3-11) 11/02/23 00:33 BUN 8 mg/dl (6-23) 11/02/23 00:33 Creatinine 0.67 mg/dl (0.6-1.2) 11/02/23 00:33 Est Cr Clr Drug Dosing Not Reportable 11/02/23 00:33 Est GFR ( Amer) 102.5 ml/min 11/02/23 00:33 Est GFR (Non-Af Amer) 88.4 ml/min 11/02/23 00:33 BUN/Creatinine Ratio 11.9 (10-20) 11/02/23 00:33 Glucose 132 mg/dl (70-99(Fasting)) H 11/02/23 00:33 Calcium 9.7 mg/dl (8.6-10.3) 11/02/23 00:33 Total Bilirubin 0.5 mg/dl (0.2-1.0) 11/02/23 00:33 AST 16 U/L (13-39) 11/02/23 00:33 ALT 15 U/L (7-52) 11/02/23 00:33 Alkaline Phosphatase 70 U/L (34-104) 11/02/23 00:33 Troponin I High Sens 20.6 pg/ml (0-14) H 11/02/23 00:33 Total Protein 7.5 gm/dl (6.0-8.3) 11/02/23 00:33 Albumin 4.5 gm/dl (3.4-5.0) 11/02/23 00:33 Globulin 3.0 gm/dl (2.5-4.0) 11/02/23 00:33 Albumin/Globulin Ratio 1.5 (0.9-2) 11/02/23 00:33 ECG Additional Comments: ECG. Sinus tachycardia with occasional PVCs at a rate of 123. Possible left atrial enlargement. Nonspecific T wave abnormalities. Code Status & VTE Plan VTE Prophylaxis Plan VTE Prophylaxis will be ordered: Yes
[2023-11-02] MEDS ORDERED: POLYETHYLENE (MIRALAX) 17 GM PACK PO PRN (02:55)
[2023-11-02] MEDS ORDERED: NITROGLYCERIN SL 0.4 MG/TAB TAB SL PRN (02:55)
[2023-11-02] MEDS ORDERED: ACETAMINOPHEN 325 MG TAB PO PRN (02:55)
--- NOTE | 2023-11-02 06:31 | Cardiology Consultation ---
Date of Consultation November 02, 2023 Assessment & Plan (1) Hypertensive urgency: (2) Elevated troponin: (3) Noncompliance with medication regimen: Plan IMPRESSION: 72-year-old female with history of noncompliance and bipolar disorder presents with symptomatic uncontrolled hypertension in the setting of nonadherence with medication regimen. Blood pressures improved with restarting home dose losartan and metoprolol. PLAN: Hypertension: -Recommend continued conservative medical management with metoprolol succinate 50 mg twice daily, and losartan 25 mg daily. -Consider addition of low-dose aspirin if patient agreeable. -Echocardiogram obtained. Further recommendations pending results. -Encourage smoking cessation, patient declined education. Chest pain: -Patient describing very atypical chest discomfort symptoms. Likely musculoskeletal in nature as they have been present for over a year and reproducible on palpation. -High-sensitivity troponins minimally elevated and likely in the setting of demand due to hypertensive urgency. EKG without acute ischemic changes. Low likelihood for ACS. Third troponin pending. EKG to be obtained this morning. Anxiety: -Recommend treatment of underlying anxiety and other psychiatric disorders as it is a likely contributing to her elevated heart rates. -Heart rates were well-controlled in the 70s to 80s prior to me entering the room and after conversation/assessment heart rate went up to 90s to 100s. -Will defer to primary team Case to be discussed with Dr. Humphries. No further cardiac recommendations at this time. Echo pending. I spent a total of 40 minutes on the date of service in preparation, delivery, and documentation of the care provided to the patient excluding any time spent in the performance of separately billed services. HALI Colindres Department of Cardiology, [facility] This chart was completed in part utilizing Speech Voice Recognition Software. Grammatical errors, random word insertions, pronoun errors, and incomplete sentences are an occasional consequence of this system due to software limitations, ambient noise, and hardware issues. Any formal questions or concerns about the content, text, or information contained within the body of this dictation should be directly addressed to the provider for clarification. Supervising Physician Co-Signing Physician Notes I have reviewed the advanced practitioner's documentation, and I agree with, and take responsibility for the plan of care I spent a total of 20 minutes coordinating, documenting, and providing care for this patient excluding time spent in the performance of separately billed services. All of the aforementioned completed while collaborating with the assigned advanced practitioner for a full treatment plan Patient was seen and personally examined. 73-year-old female with recurrent hospitalization with hypertensive urgency after lapse in medications. Notes has difficulty finding her pills. Blood pressure improved after restarting home medications. Would continue Echocardiogram unchanged from prior studies EKG without ischemic changes. Heart rate improved on resumption of beta-jeri Recommendations: Resume prior medications. Will need to reevaluate living situation/medication administration Contact with any further question will sign off History of Present Illness Reason for Consultation: Hypertensive urgency Requesting Physician: Anand escobar Attending Physician: Wendy Camargo MD History of Present Illness 73-year-old female who presented to [facility] emergency department this morning due to chest discomfort and shortness of breath. Upon presentation she was extremely anxious and tearful complained of diffuse pain with cramping in her chest and abdomen and nausea as well as headaches and poor vision. States that she missed doses of her metoprolol and her losartan. Patient had a similar episode at the beginning of September 2023 where she was restarted on her metoprolol and losartan was added. At this time EKG demonstrated anterior T wave abnormalities suggestive of a pos sible stress-induced event--patient refused IV heparin and aspirin. Echocardiogram showed a hyperdynamic LV systolic function without wall motion abnormalities. Blood pressures this admission were markedly hypertensive (200/100s). High- sensitivity troponins were mildly elevated 20.6>>22.2 (improved compared to visit in 09/2023). EKG showed sinus tachycardia with PVCs, 123 bpm. Since restarting her on her medications blood pressure significantly improved. Upon entrance into the room patient sitting up in bed. Very anxious upon my assessment. Notes that she has a left sided rib discomfort located under her breast that has been ongoing for the past year. Symptoms are reproducible with palpation. Notes that if she lays on her left side symptoms worsen. Describes her pain as a bruise. she is not having any shortness of breath but notes that the oxygen has helped her. Will occasionally feel a racing heartbeat/palpitations. Currently she is in no distress. No nausea or vomiting. No diaphoresis. No orthopnea or PND. No lower extremity edema. Notes that she is currently homeless and [facility] the critical access [facility] critical access hospital and because of this she loses her pills often. States that she gets significant anxiety when she cannot find her metoprolol. Echocardiogram pending. She is a current smoker/vapes. No alcohol use. Currently declines any illicit drug use. Past medical history: Hypertension with history of hypertensive urgency 09/2023 History of DVT Anxiety PTSD Bipolar 1 disorder Schizoaffective disorder History of suicide attempt by acetaminophen overdose Tobacco use History of drug abuse ? questionable ASA allergy Medication noncompliance Allergies Allergy/AdvReac Type Severity Reaction Status Date / Time atropine Allergy Severe castillo, hard Verified 11/01/23 23:22 time breathing clonidine Allergy Severe RAISES Verified 11/01/23 23:22 B.P., ANXIOUSNESS diphenhydramine Allergy Severe "I ALMOST Verified 11/01/23 23:22 ." hyoscyamine Allergy Severe castillo, hard Verified 11/01/23 23:22 time breathing labetalol Allergy Severe swelling,loss Verified 11/01/23 23:22 of taste,itch, rash phenobarbital Allergy Severe castillo, hard Verified 11/01/23 23:22 time breathing prednisone Allergy Severe Edema Verified 11/01/23 23:22 face,lips and tongue. scopolamine Allergy Severe castillo, hard Verified 11/01/23 23:22 time breathing enoxaparin Allergy Intermediate RASH Verified 11/01/23 23:22 levofloxacin Allergy Intermediate ARM TURNED Verified 11/01/23 23:22 "FIREY RED" WHEN INFUSED, CLEARED IN A FEW HOURS tramadol Allergy Intermediate blisters Verified 11/01/23 23:22 all over warfarin Allergy Intermediate rash Verified 11/01/23 23:22 chlorpromazine Allergy Mild TOLERATING Verified 11/01/23 23:22 PROLIXIN AT HOME 01/15/08 coumarin Allergy Unknown UNKNOWN Verified 11/01/23 23:22 naproxen Allergy Unknown Abdominal Verified 11/01/23 23:22 Pain Penicillins Allergy Unknown Unknown Verified 11/01/23 23:22 morphine AdvReac Severe SHOCK;TOLERATES Verified 11/01/23 23:22 DEMEROL/PASSED OUT amitriptyline AdvReac Intermediate Nausea/vomi Verified 11/01/23 23:22 timg amlodipine AdvReac Intermediate Hypotension Verified 11/01/23 23:22 aspirin AdvReac Intermediate BLEEDING Verified 11/01/23 23:22 codeine AdvReac Intermediate BP DROPS Verified 11/01/23 23:22 AND PASSES OUT dicyclomine AdvReac Intermediate GI SYMPTOMS Verified 11/01/23 23:22 hydralazine AdvReac Intermediate palpitations Verified 11/01/23 23:22 as per px ibuprofen AdvReac Intermediate BLEEDING/ED Verified 11/01/23 23:22 ELLIOT lisinopril AdvReac Intermediate COUGH Verified 11/01/23 23:22 nitrofurantoin AdvReac Intermediate hallucinati Verified 11/01/23 23:22 ng Home Medications Medication Instructions Recorded Confirmed Type metoprolol succinate 50 mg 50 mg PO BID #180 tabs 09/14/23 11/01/23 Rx tablet,extended release 24 hr aluminum-mag hydroxide-simethicone 10 ml PO DIRECTED PRN 11/01/23 11/01/23 History 200 mg-200 mg-20 mg/5 mL oral susp HEARTBURN/INDIGESTION camphor-menthol 0.2 %-3.5 % 1 applic topical BID PRN Pain 11/01/23 11/01/23 History topical gel witch echo leaf (hamamelis) 1 applic topical DIRECTED PRN 11/01/23 11/01/23 History (witch echo topical liquid) Hemorrhoids Patient History Medical History Sedative, hypnotic or anxiolytic use disorder, severe, dependence benzodiazepines Opioid use disorder Schizoaffective disorder, bipolar type Cystic mass of pancreas DVT (deep venous thrombosis) High blood pressure Hypertensive urgency H/O drug abuse Tobacco abuse Hypertension COPD (chronic obstructive pulmonary disease) Posttraumatic stress disorder (01/14/13) Surgical History History of cystoscopy History of inferior vena caval filter placement Family History Father Myocardial infarction, Onset Age: 66 Diabetes Mother Stroke Colorectal cancer Other Family history non-contributory Social History Smoking Status: Current every day smoker Tobacco Type: E-cigarettes / Vaping Cigarettes Per Day: 1.5 PPD; Second Hand Exposure: No; Do You Dip or Chew Tobacco: No; Hx Alcohol Use: No Hx Substance Use: No Preferred Language: [place] Communication Ability: Effective Communication Ability Comment: needs frequent redirection to stay on task Visual Impairment: No Limitations Hearing Ability: Normal Infection Control Rn Required: No Beliefs That Will Affect Care: None marital status: Single Current Living Situation: Alone Current Living Situation Comment: Patient lives at motel paid by her friend Feels Safe at Home: Declines to Answer Assistive Devices: Apnea Monitor Review of Systems Review of Systems: All systems reviewed & are unremarkable except as noted in HPI & below Physical Exam Constitutional: WD/WN, vitals as above + thin; no acute distress Neck: normal visual inspection and trachea midline Respiratory: normal respiratory effort Auscultation: + rales (Bilateral bases, clears with coughing.); no rhonchi and no wheezes Cardiovascular: RRR, no murmur, no edema Heart Sounds: normal S1 and normal S2 Vessels: no JVD Extremities: no edema Gastrointestinal (Abdomen): normal bowel sounds, soft, nontender, no hepatosplenomegaly Skin: no rashes, warm and dry Neurologic: PERRL, EOMI, accommodation nl, no face palsy, no dysarthria Psychiatric: Orientation: alert and oriented x 3 Results & Data Vital Signs (Past 12 Hours) Vital Signs Pulse Pulse Pulse Resp BP BP Pulse Ox 11/02/23 06:14 78 13 103/66 94 11/02/23 04:09 71 13 109/60 100 11/02/23 02:55 11/02/23 02:00 89 16 174/113 H 99 11/02/23 00:30 104 H 212/172 H 11/02/23 00:14 100 H 11/02/23 00:08 96 H 14 139/112 H 96 11/01/23 23:08 107 H 201/114 H 11/01/23 22:49 118 H 20 191/105 H 99 11/01/23 22:09 108 H 14 173/94 H 97 11/01/23 21:59 118 H 16 98 11/01/23 21:04 97 11/01/23 20:11 116 H 11/01/23 20:08 121 H 15 214/110 H 96 11/01/23 20:07 97 11/01/23 20:05 96 H 22 214/110 H 98 Pulse Ox O2 Del Method O2 Del Method O2 Flow Rate O2 Flow Rate 11/02/23 06:14 Nasal Cannula 2 11/02/23 04:09 Nasal Cannula 2 11/02/23 02:55 99 Nasal Cannula 2 11/02/23 02:00 Nasal Cannula 2 11/02/23 00:30 11/02/23 00:14 11/02/23 00:08 Room Air 11/01/23 23:08 11/01/23 22:49 Room Air 11/01/23 22:09 Room Air 11/01/23 21:59 Room Air 11/01/23 21:04 Room Air 11/01/23 20:11 11/01/23 20:08 Room Air 11/01/23 20:07 Room Air 11/01/23 20:05 Room Air Laboratory Results Cardiac Enzymes 11/01/23 11/02/23 11/02/23 Range/Units 22:25 00:33 02:37 AST Cancelled 16 Troponin I High Sens Cancelled 20.6 H 22.2 H Coagulation 11/01/23 11/02/23 Range/Units 22:25 00:33 PT Cancelled 10.6 APTT Cancelled 27 CBC 11/01/23 Range/Units 22:25 WBC 7.27 (4.8-10.8) K/ul RBC 4.99 (4.20-5.40) M/uL Hgb 15.3 (12.0-16.0) g/dl Hct 46.5 (37.0-47.0) % Plt Count 422 H (130-400) K/uL Neut # (Auto) 4.83 (1.40-6.50) K/uL Lymph # (Auto) 1.83 (1.20-3.40) K/uL [place] # (Auto) 0.52 (0.11-0.59) K/uL Eos # (Auto) 0.00 (0.00-0.50) K/uL Baso # (Auto) 0.07 (0.00-0.20) K/uL Comprehensive Metabolic Panel 11/01/23 11/02/23 Range/Units 22:25 00:33 Sodium Cancelled 137 Potassium Cancelled 3.7 Chloride Cancelled 104 Carbon Dioxide Cancelled 24 BUN Cancelled 8 Creatinine Cancelled 0.67 Glucose Cancelled 132 H Calcium Cancelled 9.7 AST Cancelled 16 ALT Cancelled 15 Alkaline Phosphatase Cancelled 70 Total Protein Cancelled 7.5 Albumin Cancelled 4.5 Intake and Output 11/01/23 11/01/23 11/02/23 14:59 22:59 06:59 Other: Weight 58 kg 58 kg Weight Measurement Method Built in Bedscale Patient Weight 11/02/23 06:59 Weight 58 kg Diagnostic Findings Echo at [facility] 09/13/2023 LVEF 65 to 70% Moderate concentric LVH No wall motion abnormalities noted
--- NOTE | 2023-11-02 07:17 | XRay Report ---
XR chest 1V portable HISTORY: Chest pain, nonspecific COMPARISON: Chest 09/11/2023. FINDINGS: There are low lung volumes. No pneumothorax. No pleural effusions. Mild interstitial thicke trent which is likely chronic. This remains unchanged. No new focal lung consolidations to suggest a p neumonia. No evidence for pulmonary edema. The heart is normal in size. There is a tortuous thoracic aorta again noted. No acute fractures. There are 2 IVC filters. IMPRESSION: No significant change compared to the prior study. No acute process. ACT 112: Negative or not required by law. Electronically signed by: Montrell Wang M.D. 11/02/2023 7:16 AM
[2023-11-02 07:41] LABS: Basophils # (auto) 0.05 K/uL (0.00-0.20); Basophils % (auto) 0.7 %; Eosinophils # (auto) 0.19 K/uL (0.00-0.50); Eosinophils % (auto) 2.8 %; Immature Granulocytes # (auto) 0.01 K/uL (0.01-0.20); Immature Granulocytes % (auto) 0.1 %; Lymphocytes # (auto) 2.38 K/uL (1.20-3.40); Lymphocytes % (auto) 35.2 %; Mean Corpuscular Hemoglobin 30.9 pg (25.0-34.0); Mean Corpuscular Hgb Conc 33.3 g/dL (32.0-36.0); Mean Corpuscular Volume 92.6 fL (80.0-100.0); Mean Platelet Volume 8.9 fL (9.4-12.4); Monocytes # (auto) 0.73 K/uL (0.11-0.59); Monocytes % (auto) 10.8 %; Neutrophils # (auto) 3.41 K/uL (1.40-6.50); Neutrophils % (auto) 50.4 %; Platelet Count 404 K/uL (130-400); RDW Coefficient of Variation 12.5 % (11.5-14.5); RDW Standard Deviation 42.5 fL (36.4-46.3); Red Blood Count 4.21 M/uL (4.20-5.40); White Blood Count 6.77 K/ul (4.8-10.8)
[2023-11-02 07:56] LABS: BUN Creatinine Ratio 13.8 (10-20); Calcium 9.7 mg/dl (8.6-10.3); Est GFR (Non-African American) 74.2 ml/min
[2023-11-02 08:00] LABS: Troponin I High Sensitivity 17.1 pg/ml (0-14)
[2023-11-02] MEDS ORDERED: LEVALBUTEROL 1.25MG/0.5ML NEB NEB PRN (08:02)
[2023-11-02] MEDS: METOPROLOL TARTRATE 50 MG TAB PO SCH (08:23)
[2023-11-02] MEDS: LOSARTAN POTASSIUM 25 MG TAB PO SCH (08:50)
--- OUTSIDE RECORDS SUMMARY | 2023-11-02 09:27 | External Medical Summary | Summary of Care ---
Author Name Unknown Organization [facility] Address [address] [facility] [place] [address] Phone [phone] Care Team Providers Care Product Development Chemist Name Role Phone Unavailable Primary Care Provider Unavailabl e Encounter Details Date Type Department Care Team (Late st Contact Info) Description 09/13/2023 Result Scan Unspecified Department Armaan Schwartz O, DO [address] [place] [address] <No scans attached> Allergies Active Allergy Reactions Criticality Noted Date Comments Naproxen Sodium Other (Please [...] as of this encounter (statuses as of 09/17/2023) Medications Medication Sig Dispensed Refills Start Date [...] as of this encounter (statuses as of 09/17/2023) Active Problems Problem Noted Date Diagnosed Date History of DVT (deep vein thrombosis) 12/03/2018 Suicide attempt by acetaminophen overdose 2011 Schizoaffective disorder 01/25/2012 Overweight (BMI 25.0-29.9) 08/21/2011 Overview: BMI= 26.34 08/21/11 Chronic pain disorder 08/21/2011 Posttraumatic stress disorder 08/21/2011 Bipolar I disorder, most recent episode manic, m oderate 08/21/2011 Tobacco use disorder 08/21/2011 Anxiety state 04/03/2011 History of nonadherence to medical treatment Irritable bowel syndrome 04/03/2011 HTN, goal below 140/90 09/08/2008 Drug dependence, abuse Overview: tramadol documented as of this encounter (statuses as of 09/17/2023) Resolved Problems Problem Noted Date Diagnosed Date Resolved Date Fibromyalgia 08/21/2011 01/25/2012 Myalgia and myositis 04/03/2011 012 Other specified drug dependence, continuous 04/03/2011 01/25/2012 Tachycardia 12/08/2010 01/25/2012 VENOUS THROMBOSIS LEFT LEG- RECURRENT 05/04/2009 12/03/2018 Anticoagulation management encounter 05/02/2009 06/19/2010 Venous thrombosis 05/02/2009 05/04/2009 ACTIVE CASE MANAGEMENT 05/02/200905/22 Overview: D/c'd from [facility] 05/01/09,DVT, many questions and concers regarding Lovenox and coumadin. Posttraumatic stress disorder 03/08/2009 08/21/2011 Esophageal reflux 03/08/2009 12/08/2010 Bipolar I disorder, most rec ent episode manic, moderate 09/08/2008 08/21/2011 documented as of this encounter (statuses as of 09/17/2023) Immunizations No known immunizationsdocumented as of this encounter Social History Tobacco Use Types Packs/Day Years Used Date Smoking Tobacco: Every Day Cigarettes 1.5 37 Smokeless Tobacco: Never Alcohol Use Standard Drinks/Week Comments No 0 (1 standard drink = 0.6 oz pur e alcohol) quit 3 yrs ago Sex and Gender Information Value Date Recorded Sex Assigned at Not on file Gender Identity Not on file Sexual Orientation Not on file documented as of this encounter Plan of Treatment Health Maintenance Due Date Last Done Comments DXA Scan 1950 COVID-19 Vaccine (#1) [birth year]12/1951 Depression Screening 1964 Albumin/Creatinine Ratio 1970 Hepatitis C Screening 1970 DTaP,Tdap,and Td Vaccines (1 - Tdap) 10/11/1971 Cologuard 1997 Sigmoidoscopy 1997 Mammogram 05/23/2011 05/23/2010, 05/05, 02/11/2009 Fecal Occult Blood Test 08/31/2011 08/31/2010 GFR 02/17/2013 02/18/2012, 08/12/2010, 11/20/2010, Additional history exists Lipid Panel 11/07/2014 11/07/2009, 09/06, 02/23/2008 Zoster Vaccines (2 of 3) 05/06/2015 03/11/2015 Pneumococcal Vaccine: 65+ Years (3 - PPSV23 or PCV20) 04/16/2019 01/06/2018, 04/16/2014 Colonoscopy 11/15/2020 11/15/2010 Colorectal Cancer Screening 11/15/2020 Influenza Vaccine (FLU shot) (#1) 2023 LUNG CANCER SCREENING - USE SMARTSET [id number] Completed 02/18/2012 GARDASIL-HPV IMMUNIZATION SERIES Aged Out No longer eligible based on patient's age to complete this topic Hepatitis B Aged Out No longer eligi ble based on patient's age to complete this topic MENINGOCOCCAL (MENACTRA/MENVEO) Aged Out No longer eligible based on patient's age to complete this topic documented as of this encounter Medical Devices Not on filedocumented as of this encounter Procedures Procedure Name Priority Date/Time Associated Diagnosis Comments ECHOCARDIOLOGY SCANNED RESULT 09/13/2023 documented in this encounter Results * ECHOCARDIOLOGY SCANNED RESULT (09/13/2023) 09/13/2023 Armaan Schwartz DO ECHOCARDIOLOGY documented in this encounter
--- NOTE | 2023-11-02 12:09 | Psychiatric Consultation ---
Date of Consultation November 02, 2023 Impression / Recommendations Impression This is an elderly homeless woman who has had some significant stress throughout her life as well as a history of both psychiatric and medical issues that have been pretty severe. While she has not been taking psychiatric medications for at least 6 years, she seems to be managing the stress of her life relatively well. She is using good coping mechanisms like humor. I did not see any evidence that she requires any type of psychiatric hospitalization. I do not think she is an acute danger to herself by suicide. I also know that she has problems with adherence to medication and the chaos of being homeless and sure contributes to that. The herbals that she is taking may interact with some other medications that she is prescribed so we will be important to monitor these and the possible interactions. (1) Schizoaffective disorder: Plan I do not feel that the patient requires hospitalization for psychiatric reasons. She is refusing any type of psychiatric medication and I do not feel that we can compel her to do so. Honestly, I do not think she needs it at this moment. She was asking for something on an as-needed basis for anxiety and asked for some lorazepam. That does not seem inappropriate but, with her history of substance use, you could consider using hydroxyzine instead. We just need to be careful about using anticholinergic medications and someone age 73. I am going to sign off the case at this time. If you have any other concerns and would like us to revisit the case, just contact us. Today I spent about 60 minutes on the case. This included meeting with the patient, reviewing the chart, texting with the attending physician, and documentation. Psych History Identifying Data Damaris is a 73-year-old female from [place] who presented to the emergency department with chest pain and shortness of breath. I was asked to see her by Dr. Delvalle because of her psychiatric history, depression, and noncompliance. Chief Complaint "I am not sure." History of Present Illness Patient has been seen here before by psychiatry and I believe she was on our psychiatric in the distant past. The last consult was March [address] Daily. She also saw Dr. Rivero in March [address] Gonzalez in February 2018. All of these consults were very similar and that she has a history of schizoaffective disorder and substance use and a long history of not taking her medications. I believe she has been off of psychiatric medications at this point for at least 6 years. In all of those consultations, it was felt that she was not an acute danger to herself or other people. She would be very negative or sarcastic but was not suicidal. In all of those consultations, the patient was never willing to start up psychiatric medication and today is the same. In fact, today is very similar to all of those psychiatric consultations. She came in with some pretty recent medical complaints and is getting worked up for it. It sounds like her poor adherence to medication is connected to this as well. When the nurse liaison and I sat down to meet with her, she was very negative. She use that she was not sleeping and that all of her friends and family were . Interestingly, later in the conversation she talked about her daughter who is apparently a hand screen printer and was giving her a tea to drink. She was very negative about her world in society today and how it is difficult for young people to navigate the world. It sounds like there is a couple who is her benefactor. They pay for her cell phone and it sounds like she does have a place to sleep at night, but she has to leave it it in the day. It did not sound like a normal homeless longterm. She says sleep is poor, her appetite is good, and her mood is "disgusted" with how her body is treating her. It sounds like she does not have anhedonia and gets a lot of aris from her cell phone. Energy has been poor. Her concentration was very good. She does describe a lot of hopelessness, but no guilt or suicidal ideation. She when I asked her about suicidal thoughts she denied it but also said "I am already ." She denies any thoughts of hurting other people. She is not hallucinating. She denies any current substance use, but the chart indicates there is a distant history of substance abuse. The 98-year-old mother of one of her benefactor's apparently brings the patient quite a bit of aris and the patient brightened significantly when she talked about this little old lady. Past Psychiatric History Previous Psych History: The patient has a long history of schizoaffective disorder and has been on our psychiatric unit in the past. Past Medication Trials: In the past, patient has been on Depakote, Risperdal, Seroquel, Cymbalta, Effexor, Prolixin, trazodone, gabapentin, paliperidone, clonazepam, and diazepam. I noted in an old consultation that paliperidone had been effective for her. Allergies Allergy/AdvReac Type Severity Reaction Status Date / Time atropine Allergy Severe castillo, hard Verified 11/01/23 23:22 time breathing clonidine Allergy Severe RAISES Verified 11/01/23 23:22 B.P., ANXIOUSNESS diphenhydramine Allergy Severe "I ALMOST Verified 11/01/23 23:22 ." hyoscyamine Allergy Severe castillo, hard Verified 11/01/23 23:22 time breathing labetalol Allergy Severe swelling,loss Verified 11/01/23 23:22 of taste,itch, rash phenobarbital Allergy Severe castillo, hard Verified 11/01/23 23:22 time breathing prednisone Allergy Severe Edema Verified 11/01/23 23:22 face,lips and tongue. scopolamine Allergy Severe castillo, hard Verified 11/01/23 23:22 time breathing enoxaparin Allergy Intermediate RASH Verified 11/01/23 23:22 levofloxacin Allergy Intermediate ARM TURNED Verified 11/01/23 23:22 "FIREY RED" WHEN INFUSED, CLEARED IN A FEW HOURS tramadol Allergy Intermediate blisters Verified 11/01/23 23:22 all over warfarin Allergy Intermediate rash Verified 11/01/23 23:22 chlorpromazine Allergy Mild TOLERATING Verified 11/01/23 23:22 PROLIXIN AT HOME 01/15/08 coumarin Allergy Unknown UNKNOWN Verified 11/01/23 23:22 naproxen Allergy Unknown Abdominal Verified 11/01/23 23:22 Pain Penicillins Allergy Unknown Unknown Verified 11/01/23 23:22 morphine AdvReac Severe SHOCK;TOLERATES Verified 11/01/23 23:22 DEMEROL/PASSED OUT amitriptyline AdvReac Intermediate Nausea/vomi Verified 11/01/23 23:22 timg amlodipine AdvReac Intermediate Hypotension Verified 11/01/23 23:22 aspirin AdvReac Intermediate BLEEDING Verified 11/01/23 23:22 codeine AdvReac Intermediate BP DROPS Verified 11/01/23 23:22 AND PASSES OUT dicyclomine AdvReac Intermediate GI SYMPTOMS Verified 11/01/23 23:22 hydralazine AdvReac Intermediate palpitations Verified 11/01/23 23:22 as per px ibuprofen AdvReac Intermediate BLEEDING/ED Verified 11/01/23 23:22 ELLIOT lisinopril AdvReac Intermediate COUGH Verified 11/01/23 23:22 nitrofurantoin AdvReac Intermediate hallucinati Verified 11/01/23 23:22 ng Home Medications Medication Instructions Recorded Confirmed Type metoprolol succinate 50 mg 50 mg PO BID #180 tabs 09/14/23 11/01/23 Rx tablet,extended release 24 hr aluminum-mag hydroxide-simethicone 10 ml PO DIRECTED PRN 11/01/23 11/01/23 History 200 mg-200 mg-20 mg/5 mL oral susp HEARTBURN/INDIGESTION camphor-menthol 0.2 %-3.5 % 1 applic topical BID PRN Pain 11/01/23 11/01/23 History topical gel witch echo leaf (hamamelis) 1 applic topical DIRECTED PRN 11/01/23 11/01/23 History (witch echo topical liquid) Hemorrhoids Patient History Medical History Sedative, hypnotic or anxiolytic use disorder, severe, dependence benzodiazepines Opioid use disorder Schizoaffective disorder, bipolar type Cystic mass of pancreas DVT (deep venous thrombosis) High blood pressure Hypertensive urgency H/O drug abuse Tobacco abuse Hypertension COPD (chronic obstructive pulmonary disease) Posttraumatic stress disorder (01/14/13) Surgical History History of cystoscopy History of inferior vena caval filter placement Family History Father Myocardial infarction, Onset Age: 66 Diabetes Mother Stroke Colorectal cancer Other Family history non-contributory Social History Smoking Status: Current every day smoker Tobacco Type: E-cigarettes / Vaping Cigarettes Per Day: 1.5 PPD; Second Hand Exposure: No; Do You Dip or Chew Tobacco: No; Hx Alcohol Use: No Hx Substance Use: No Preferred Language: Bolivian Communication Ability: Effective Communication Ability Comment: needs frequent redirection to stay on task Visual Impairment: No Limitations Hearing Ability: Normal Supervisor Grounds Required: No Beliefs That Will Affect Care: None marital status: Single Current Living Situation: Alone Current Living Situation Comment: [facility] Feels Safe at Home: Declines to Answer Assistive Devices: Apnea Monitor Physical Exam Psychiatric: Patient was alert and oriented x 3. She was disheveled but looks pretty clean. Eye contact was good. Speech was normal. Mood was initially depressed but improved. Affect started out very restricted but then brightened over time and by the end of our visit she was making jokes and laughing. Thought process was very pessimistic but over time just more sarcastic. There was no evidence of any hallucinations or delusions. Patient denied any suicidal or homicidal thoughts. Memory was good; she knew her date of , the president's name, and the capital of [place]. Concentration was surprisingly good; she could spell the word world backwards pretty quickly. Right after that, she spelled the word bullshit backwards very fast. No abnormal movements were seen. Gait was not evaluated. Insight and judgment are impaired. Vital Signs (Past 24 Hours): Last Vital Signs Pulse 112 H 11/02/23 11:00 Resp 23 11/02/23 11:00 BP 94/54 L 11/02/23 11:00 Pulse Ox 98 11/02/23 11:00 O2 Del Method Nasal Cannula 11/02/23 10:36 O2 Flow Rate 2 11/02/23 10:36 Results & Data (PSY) Laboratory Results CBC had an elevated platelet count. PT and INR were normal. Diagnostic Findings CBC had an elevated platelet count, this morning it was 404. PT and INR were normal. CMP had an elevated glucose at 107, likely from stress. Troponins were elevated in the 3 measurements they did today after midnight. Medications Administered Losartan Potassium (Losartan Potassium 25 Mg Tab) 25 mg PO QAM [facility] Stop: 12/02/23 08:59 Last Admin: 11/02/23 08:50 Dose: Not Given Documented By: ROHAN Metoprolol Tartrate (Metoprolol Tartrate 50 Mg Tab) 50 mg PO BID [facility] Stop: 12/02/23 08:59 Last Admin: 11/02/23 08:23 Dose: 50 mg Documented By: ROHAN Coding Level of Care Code 09825 U Intl Hosp Care Lvl 2 Diagnoses Schizoaffective disorder F25.9
--- NOTE | 2023-11-02 15:10 | Communication Note ---
Date of Service: November 02, 2023 The patient was seen and examined in emergency room. She was admitted with hypertensive urgency with nonspecific chest pain and anxiety. Has been seen by cut off saw tender metal and psychiatrist. Remains hemodynamically stable now. Will need to have observation in the hospital with PT OT evaluation prior to discharge. A full progress note will be done tomorrow. Dr Kandi Camargo
[2023-11-02] MEDS: DICYCLOMINE HCL 10 MG CAP PO ONE (20:53)
[2023-11-02] MEDS: LORazepam 0.5 MG TAB SL STA (23:36)
[2023-11-03] MEDS: LOSARTAN POTASSIUM 25 MG TAB PO STA (00:30)
[2023-11-03] MEDS: hydrALAZINE HCL 25 MG TAB PO STA (00:30)
[2023-11-03] MEDS: hydrOXYzine HCl 10 MG TAB PO ONE (10:50)
--- NOTE | 2023-11-03 13:03 | Hospitalist Progress Note ---
Date of Service November 03, 2023 Assessment & Plan (1) Hypertensive urgency: Plan: 73F with PMH significant for HTN,IBS,chronic pain disorder,Anxiety,Medical non compliance, PTSD,Bipolar I disorder,Schizoaffective disorder, COPD, Hx of Drug dependence abuse,Hx of suicide attempt by acetaminophen overdose, Hx of DVT comes with chest pain and HTN urgency. Patient states she could not see her metoprolol and was not taking it. She is tearful. States she hurts all over. She feels cramps in the chest and abdomen. Somewhat nauseous. And she states she coughs. Has headache . Vision is not great. Some runny nose. Feeling short of breath. Was able to ambulate okay in the ER for bathroom. She states normal bowel and bladder movements. Patient repeats same thing and seems anxious. She states short acting metoprolol works better. She is allergic to many medications. Refuses taking any other medication. But agreed to put on Nitropaste and was okay for a dose of Ativan. Poor historian and difficult to get history from the patient. Patient had similar presentation in September. Hypertensive urgency States Missed her Metoprolol Last admission she was also started on losartan Will restart her metoprolol and losartan Nitropaste Blood pressure remains elevated at 162/117 Losartan was added at from this morning on top up metoprolol 50 mg twice daily as an outpatient Will continue current medications Chest pain Mild elevation troponin No signs of ACS Echo of the heart showed-normal LV size with moderate concentric LVH, normal wall motion, EF 65 to 70%, grade 1 diastolic dysfunction, left atrium is mildly dilated, aortic valve sclerosis moderate without significant stenosis, moderate mitral annular calcification, there is trace mitral and trace tricuspid regurgitation Cardiology consult-appreciate input and recommendation Telemetry-patient does not like to wear the monitor COPD Tobacco abuse Nebs as needed Bipolar 1 disorder Schizoaffective disorder History of suicidal attempt Medical noncompliance Seems currently not on medications Will consult psychiatry-appreciate psychiatric input and recommendation Remains very anxious-will try very small dose of hydroxyzine, to start with 5 mg a day Abdominal cramping Last admission there suspicion for tip appendicitis on ct scan But suspicion was low as per surgery Can consider repeat imaging Has been taking Maalox/Mylanta and that helps the abdominal cramp Will not give any more Bentyl because of fear of constipation DVT prophylaxis SCDs as patient allergy to Lovenox Disposition Telemetry Full code Admission and Anticipated Discharge Date Admission Date: November 02, 2023 Subjective 11/03/2023 The patient was seen and examined in telemetry unit She remains very anxious and has nonspecific symptoms involving mainly the abdomen She cannot take a lot of medications due to side effects and she is afraid to take anything Will try small dose of hydroxyzine for anxiety and she was agreeable Review of Systems Review of Systems: All systems reviewed and are unremarkable except as noted below Physical Exam Physical Exam: Lying in bed with acute anxiety Constitutional: + ill appearing and average body habitus Eyes: PERRL, conjunctivae normal, anicteric sclerae ENMT: external ear and nose normal, oropharynx normal Neck: trachea midline, no thyromegaly Respiratory: no respiratory distress Auscultation: lungs clear to auscultation bilaterally Cardiovascular: Rate/Rhythm: regular rate and regular rhythm; not tachycardic Heart Sounds: normal S1 and normal S2; no murmur Extremities: no edema Gastrointestinal (Abdomen): Inspection/Auscultation: + abdomen distended (Minimally distended due to the body habitus mainly) and normal bowel sounds Percussion/Palpation: abdomen soft; abdomen nontender Musculoskeletal: No acute arthritis involving any joint Neurologic: Very anxious. Moves all extremities without any focal neurodeficit Lymphatic: no cervical or axillary lymphadenopathy Results & Data Results & Data Vital Signs (Past 12 Hours) Vital Signs Temp Pulse Resp BP Pulse Ox O2 Del Method 11/03/23 11:51 36.6 C 93 H 20 162/117 H 97 Room Air 11/03/23 07:57 36.8 C 82 20 139/83 97 Room Air 11/03/23 02:16 37.2 C 67 20 137/61 96 Room Air Medications Administered Current Inpatient Medications Acetaminophen (Acetaminophen 325 Mg Tab) 650 mg PO Q4H PRN PRN Reason: Pain or Fever Stop: 12/02/23 02:54 Levalbuterol HCl (Levalbuterol 1.25mg/0.5ml Neb) 1.25 mg NEB Q4H PRN; Protocol PRN Reason: Shortness Of Breath Or Wheezing Stop: 12/02/23 08:01 Losartan Potassium (Losartan Potassium 25 Mg Tab) [facility] [place] [place]: 12/02/23 08:59 Last Admin: 11/03/23 09:31 Dose: Not Given Metoprolol Tartrate (Metoprolol Tartrate 50 Mg Tab) 50 mg PO BID GENARO Stop: 12/02/23 08:59 Last Admin: 11/03/23 09:29 Dose: 50 mg Nitroglycerin (Nitroglycerin Sl 0.4 Mg/Tab Tab) 0.4 mg SL Q5M PRN PRN Reason: Chest Pain Stop: 12/02/23 02:54 Polyethylene Glycol (Polyethylene (Miralax) 17 Gm Pack) 17 gm PO DAILY PRN PRN Reason: Constipation Stop: 12/02/23 02:54
[2023-11-03] MEDS: NITROGLYCERIN 2% OINTMENT 30GM TUBE EXT STA (17:20)
[2023-11-03] MEDS: hydrOXYzine HCl 10 MG TAB PO STA (17:20)
[2023-11-03] MEDS: LORazepam 1 MG TAB SL STA (22:13)
--- NOTE | 2023-11-04 13:55 | Hospitalist Progress Note ---
Date of Service November 04, 2023 Assessment & Plan (1) Hypertensive urgency: Plan: 73F with PMH significant for HTN,IBS,chronic pain disorder,Anxiety,Medical non compliance, PTSD,Bipolar I disorder,Schizoaffective disorder, COPD, Hx of Drug dependence abuse,Hx of suicide attempt by acetaminophen overdose, Hx of DVT comes with chest pain and HTN urgency. Patient states she could not see her metoprolol and was not taking it. She is tearful. States she hurts all over. She feels cramps in the chest and abdomen. Somewhat nauseous. And she states she coughs. Has headache . Vision is not great. Some runny nose. Feeling short of breath. Was able to ambulate okay in the ER for bathroom. She states normal bowel and bladder movements. Patient repeats same thing and seems anxious. She states short acting metoprolol works better. She is allergic to many medications. Refuses taking any other medication. But agreed to put on Nitropaste and was okay for a dose of Ativan. Poor historian and difficult to get history from the patient. Patient had similar presentation in September. Hypertensive urgency States Missed her Metoprolol Last admission she was also started on losartan Will restart her metoprolol and losartan Nitropaste Blood pressure remains elevated at 162/117 Losartan was added at from this morning on top up metoprolol 50 mg twice daily as an outpatient Will continue current medications Blood pressure remains stable and will be discharged home on current home medications Chest pain Mild elevation troponin No signs of ACS Echo of the heart showed-normal LV size with moderate concentric LVH, normal wall motion, EF 65 to 70%, grade 1 diastolic dysfunction, left atrium is mildly dilated, aortic valve sclerosis moderate without significant stenosis, moderate mitral annular calcification, there is trace mitral and trace tricuspid regurgitation Cardiology consult-appreciate input and recommendation Telemetry-patient does not like to wear the monitor No more chest pain and her palpitation COPD Tobacco abuse Nebs as needed Bipolar 1 disorder Schizoaffective disorder History of suicidal attempt Medical noncompliance Seems currently not on medications Will consult psychiatry-appreciate psychiatric input and recommendation Remains very anxious-will try very small dose of hydroxyzine, to start with 5 mg a day We will continue with small dose of hydroxyzine as needed Abdominal cramping Last admission there suspicion for tip appendicitis on ct scan But suspicion was low as per surgery Can consider repeat imaging Has been taking Maalox/Mylanta and that helps the abdominal cramp Will not give any more Bentyl because of fear of constipation DVT prophylaxis SCDs as patient allergy to Lovenox Disposition Telemetry Full code Will be discharged this afternoon Admission and Anticipated Discharge Date Admission Date: November 02, 2023 Subjective 11/03/2023 The patient was seen and examined in telemetry unit She remains very anxious and has nonspecific symptoms involving mainly the abdomen She cannot take a lot of medications due to side effects and she is afraid to take anything Will try small dose of hydroxyzine for anxiety and she was agreeable 11/04/2023 The patient was seen and examined in telemetry unit She has been stable and wants to be discharged Has had physical therapy and recommended home Denies any significant symptoms Review of Systems Review of Systems: All systems reviewed and are unremarkable except as noted below Physical Exam Physical Exam: Lying in bed with acute anxiety Constitutional: + ill appearing and average body habitus Eyes: PERRL, conjunctivae normal, anicteric sclerae ENMT: external ear and nose normal, oropharynx normal Neck: trachea midline, no thyromegaly Respiratory: no respiratory distress Auscultation: lungs clear to auscultation bilaterally Cardiovascular: Rate/Rhythm: regular rate and regular rhythm; not tachycardic Heart Sounds: normal S1 and normal S2; no murmur Extremities: no edema Gastrointestinal (Abdomen): Inspection/Auscultation: + abdomen distended (Minimally distended due to the body habitus mainly) and normal bowel sounds Percussion/Palpation: abdomen soft; abdomen nontender Musculoskeletal: No acute arthritis involving any of the joint Neurologic: Alert and awake. Very anxious. No focal neurodeficit Lymphatic: no cervical or axillary lymphadenopathy Results & Data Results & Data Vital Signs (Past 12 Hours) Vital Signs Temp Pulse Pulse Resp BP Pulse Ox O2 Del Method 11/04/23 13:31 36.5 C 80 92 H 20 125/74 98 11/04/23 08:00 36.5 C 80 20 125/74 98 Room Air 11/04/23 02:53 36.4 C L 89 18 131/81 97 Room Air Medications Administered Current Inpatient Medications Acetaminophen (Acetaminophen 325 Mg Tab) 650 mg PO Q4H PRN PRN Reason: Pain or Fever Stop: 12/02/23 02:54 Levalbuterol HCl (Levalbuterol 1.25mg/0.5ml Neb) 1.25 mg NEB Q4H PRN; Protocol PRN Reason: Shortness Of Breath Or Wheezing Stop: 12/02/23 08:01 Losartan Potassium (Losartan Potassium 25 Mg Tab) 25 mg PO QAM [facility] Stop: 12/02/23 08:59 Last Admin: 11/04/23 08:21 Dose: Not Given Metoprolol Tartrate (Metoprolol Tartrate 50 Mg Tab) 50 mg PO BID [facility] Stop: 12/02/23 08:59 Last Admin: 11/04/23 08:21 Dose: 50 mg Nitroglycerin (Nitroglycerin Sl 0.4 Mg/Tab Tab) 0.4 mg SL Q5M PRN PRN Reason: Chest Pain Stop: 12/02/23 02:54 Polyethylene Glycol (Polyethylene (Miralax) 17 Gm Pack) 17 gm PO DAILY PRN PRN Reason: Constipation Stop: 12/02/23 02:54
--- NOTE | 2023-11-04 14:35 | Electrocardiogram Report ---
Test Reason : Blood Pressure : / mmHG Vent. Rate : 123 BPM Atrial Rate : 123 BPM P-R Int : 152 ms QRS Dur : 064 ms QT Int : 306 ms P-R-T Axes : 051 042 057 degrees QTc Int : 438 ms Sinus tachycardia with occasional Premature ventricular complexes Anteroseptal infarct (cited on or before 22-JUL-2023) Abnormal ECG When compared with ECG of 13-SEP-2023 05:06, Premature ventricular complexes are now Present Vent. rate has increased BY 49 BPM Nonspecific T wave abnormality has replaced inverted T waves in Inferior leads T wave inversion no longer evident in Anterolateral leads Confirmed by Rodrigo Lara ([id number]) on 11/04/2023 2:34:41 PM Referred By: REFERRED SELF Confirmed By:Rodrigo Lara
--- NOTE | 2023-11-05 07:00 | Electrocardiogram Report ---
Test Reason : Blood Pressure : / mmHG Vent. Rate : 078 BPM Atrial Rate : 078 BPM P-R Int : 160 ms QRS Dur : 072 ms QT Int : 392 ms P-R-T Axes : 053 026 050 degrees QTc Int : 446 ms Normal sinus rhythm Possible Left atrial enlargement Anteroseptal infarct (cited on or before 22-JUL-2023) Abnormal ECG When compared with ECG of 01-NOV-2023 20:03, (unconfirmed) Premature ventricular complexes are no longer Present Vent. rate has decreased BY 45 BPM Confirmed by Rodrigo Lara ([id number]) on 11/05/2023 7:00:27 AM Referred By: REFERRED SELF Confirmed By:Rodrigo Lara
--- NOTE | 2023-11-05 07:18 | Discharge Summary ---
Date of Service November 04, 2023 Admission HPI Per Admitting Provider Chief Complaint: 73F with PMH significant for HTN,IBS,chronic pain disorder,Anxiety,Medical non compliance, PTSD,Bipolar I disorder,Schizoaffective disorder, COPD, Hx of Drug dependence abuse,Hx of suicide attempt by acetaminophen overdose, Hx of DVT comes with chest pain and HTN urgency. Patient states she could not see her metoprolol and was not taking it. She is tearful. States she hurts all over. She feels cramps in the chest and abdomen. Somewhat nauseous. And she states she coughs. Has headache . Vision is not great. Some runny nose. Feeling short of breath. Was able to ambulate okay in the ER for bathroom. She states normal bowel and bladder movements. Patient repeats same thing and seems anxious. She states short acting metoprolol works better. She is allergic to many medications. Refuses taking any other medication. But agreed to put on Nitropaste and was okay for a dose of Ativan. Poor historian and difficult to get history from the patient. Patient had similar presentation in September. Past medical history as mentioned above Past surgical history cystoscopy, EGD with biopsy, IVC filter, tonsillectomy. Social history lives alone. Smokes 1.5 packs a day for 37 years as per epic. Currently no alcohol use as per [facility] no drug use. As per [facility] she is on disability and Social Security because of physical and emotional reasons. Family history mother has colon cancer, stroke, high lipids. Father had diabetes bypass wall, blood clot. Sister has anxiety Primary Care Provider: Admission Exam Per Admitting Provider Physical Exam: General- Not in distress, tearful Head- atraumatic Eyes- PERRL. ENT- oropharynx clear Neck- supple, no JVD. Lungs- diminished b/l breath sounds, no wheezing or crackles. Heart- regular rhythm; tachycardia,no murmur, no gallop. Abdomen- normal bowel sounds, soft, nontender, no distension. Extremities- no pretibial edema, no erythema seen. Neuro- alert, oriented ; PERRL, ; no facial palsy; no dysarthria; obeys simple commands, moves extremities Principal Diagnosis Hypertensive urgency, chest pain-no ACS Discharge Exam Lying in bed with acute anxiety Constitutional + ill appearing and average body habitus Eyes PERRL, conjunctivae normal, anicteric sclerae ENMT external ear and nose normal, oropharynx normal Neck trachea midline, no thyromegaly Respiratory no respiratory distress Auscultation: lungs clear to auscultation bilaterally Cardiovascular Rate/Rhythm: regular rate and regular rhythm; not tachycardic Heart Sounds: normal S1 and normal S2; no murmur Extremities: no edema Gastrointestinal (Abdomen) Inspection/Auscultation: + abdomen distended (Minimally distended due to the body habitus mainly) and normal bowel sounds Percussion/Palpation: abdomen soft; abdomen nontender Lymphatic no cervical or axillary lymphadenopathy Discharge Data Allergies Allergy/AdvReac Type Severity Reaction Status Date / Time atropine Allergy Severe castillo, hard Verified 11/01/23 23:22 time breathing clonidine Allergy Severe RAISES Verified 11/01/23 23:22 B.P., ANXIOUSNESS diphenhydramine Allergy Severe "I ALMOST Verified 11/01/23 23:22 ." hyoscyamine Allergy Severe castillo, hard Verified 11/01/23 23:22 time breathing labetalol Allergy Severe swelling,loss Verified 11/01/23 23:22 of taste,itch, rash phenobarbital Allergy Severe castillo, hard Verified 11/01/23 23:22 time breathing prednisone Allergy Severe Edema Verified 11/01/23 23:22 face,lips and tongue. scopolamine Allergy Severe castillo, hard Verified 11/01/23 23:22 time breathing enoxaparin Allergy Intermediate RASH Verified 11/01/23 23:22 levofloxacin Allergy Intermediate ARM TURNED Verified 11/01/23 23:22 "FIREY RED" WHEN INFUSED, CLEARED IN A FEW HOURS tramadol Allergy Intermediate blisters Verified 11/01/23 23:22 all over warfarin Allergy Intermediate rash Verified 11/01/23 23:22 chlorpromazine Allergy Mild TOLERATING Verified 11/01/23 23:22 PROLIXIN AT HOME 01/15/08 coumarin Allergy Unknown UNKNOWN Verified 11/01/23 23:22 naproxen Allergy Unknown Abdominal Verified 11/01/23 23:22 Pain Penicillins Allergy Unknown Unknown Verified 11/01/23 23:22 morphine AdvReac Severe SHOCK;TOLERATES Verified 11/01/23 23:22 DEMEROL/PASSED OUT amitriptyline AdvReac Intermediate Nausea/vomi Verified 11/01/23 23:22 timg amlodipine AdvReac Intermediate Hypotension Verified 11/01/23 23:22 aspirin AdvReac Intermediate BLEEDING Verified 11/01/23 23:22 codeine AdvReac Intermediate BP DROPS Verified 11/01/23 23:22 AND PASSES OUT dicyclomine AdvReac Intermediate GI SYMPTOMS Verified 11/01/23 23:22 hydralazine AdvReac Intermediate palpitations Verified 11/01/23 23:22 as per px ibuprofen AdvReac Intermediate BLEEDING/ED Verified 11/01/23 23:22 ELLIOT lisinopril AdvReac Intermediate COUGH Verified 11/01/23 23:22 nitrofurantoin AdvReac Intermediate hallucinati Verified 11/01/23 23:22 ng Consultations 11/01/23 23:56 ED Decision to Admit Stat 11/02/23 08:00 Consult Cardiology Routine Hospital Course (1) Hypertensive urgency: 73F with PMH significant for HTN,IBS,chronic pain disorder,Anxiety,Medical non compliance, PTSD,Bipolar I disorder,Schizoaffective disorder, COPD, Hx of Drug dependence abuse,Hx of suicide attempt by acetaminophen overdose, Hx of DVT come s with chest pain and HTN urgency. Patient states she could not see her metoprolol and was not taking it. She is tearful. States she hurts all over. She feels cramps in the chest and abdomen. Somewhat nauseous. And she states she coughs. Has headache . Vision is not great. Some runny nose. Feeling short of breath. Was able to ambulate okay in the ER for bathroom. She states normal bowel and bladder movements. Patient repeats same thing and seems anxious. She states short acting metoprolol works better. She is allergic to many medications. Refuses taking any other medication. But agreed to put on Nitropaste and was okay for a dose of Ativan. Poor historian and difficult to get history from the patient. Patient had similar presentation in September. Hypertensive urgency States Missed her Metoprolol Last admission she was also started on losartan Will restart her metoprolol and losartan Nitropaste Blood pressure remains elevated at 162/117 Losartan was added at from this morning on top up metoprolol 50 mg twice daily as an outpatient Will continue current medications Blood pressure remains stable and will be discharged home on current home medications Chest pain Mild elevation troponin No signs of ACS Echo of the heart showed-normal LV size with moderate concentric LVH, normal wall motion, EF 65 to 70%, grade 1 diastolic dysfunction, left atrium is mildly dilated, aortic valve sclerosis moderate without significant stenosis, moderate mitral annular calcification, there is trace mitral and trace tricuspid regurgitation Cardiology consult-appreciate input and recommendation Telemetry-patient does not like to wear the monitor No more chest pain and her palpitation COPD Tobacco abuse Nebs as needed Bipolar 1 disorder Schizoaffective disorder History of suicidal attempt Medical noncompliance Seems currently not on medications Will consult psychiatry-appreciate psychiatric input and recommendation Remains very anxious-will try very small dose of hydroxyzine, to start with 5 mg a day We will continue with small dose of hydroxyzine as needed Abdominal cramping Last admission there suspicion for tip appendicitis on ct scan But suspicion was low as per surgery Can consider repeat imaging Has been taking Maalox/Mylanta and that helps the abdominal cramp Will not give any more Bentyl because of fear of constipation DVT prophylaxis SCDs as patient allergy to Lovenox Disposition Telemetry Full code Will be discharged this afternoon Total Time Total Time Spent Total Time Spent (In Minutes): 40 minutes Discharge Plan Discharge Items Patient Disposition: Home - Self-Care Reason For Visit: CHEST PAIN, HTN URGENCY Discharge Diagnosis: Hypertensive urgency, chest pain-no ACS Condition on Discharge: Fair Activity: Resume your previous activity Non-emergency contact: Primary Care Provider Call non-emergency contact if: you have any medication questions and your symptoms worsen Follow-up/Referrals: PCP,NO [Primary Care Provider] - (Please make an appointment with your primary care provider within 7 days) Diet: Heart Healthy Diet Texture: Pureed (blended smooth) Addtl Attending Provider Instructions: Please take precautions to avoid falls Your metoprolol was sent into [facility]-keep taking this medicine which is very helpful for your blood pressure control Please make an appointment with your primary care provider of your choice within 7 days Pending Studies at Discharge: No Stand-Alone Forms: My [facility], Smoking Cessation Medications and DC Order Prescriptions: New metoprolol tartrate 50 mg tablet 50 mg PO BID Qty: 60 0RF Continued alum-mag hydroxide-simeth 200-200-20 mg/5 mL Suspension 10 ml PO DIRECTED PRN (Reason: HEARTBURN/INDIGESTION) Rx Instructions: administer between meals and at bedtime witch echo leaf (hamamelis) [witch echo] Liquid 1 applic TOPICAL DIRECTED PRN (Reason: Hemorrhoids) camphor-menthol 0.2-3.5 % Gel 1 applic TOPICAL BID PRN (Reason: Pain) Rx Instructions: rub in gently and completely Discontinued metoprolol succinate 50 mg tablet extended release 24 hr 50 mg PO BID Qty: 180 0RF Rx Instructions: Patient needs supply of medication due to her being homeless and not able to make it to a pharmacy every month as she's not sure if she'll be in a motel or on the streets. Discharge Orders: Discharge Order (Routine); Ordered 11/04/23 Ordered By: Wendy Camargo Admission Data Admit Date/Time: 11/02/23 02:00 Attending Provider: Wendy Camargo Admit Provider: Scooby Delvalle Primary Care Provider: PCP,NO Other Providers: Scooby Delvalle; Noé Humphries Other Interventions: Discharge Summary Assessment (RN) Last Done: 11/04/23 13:31
--- NOTE | 2023-11-06 13:20 | Electrocardiogram Report ---
Test Reason : Blood Pressure : / mmHG Vent. Rate : 079 BPM Atrial Rate : 079 BPM P-R Int : 156 ms QRS Dur : 072 ms QT Int : 400 ms P-R-T Axes : 059 054 060 degrees QTc Int : 459 ms Normal sinus rhythm Nonspecific ST and T wave abnormality Abnormal ECG When compared with ECG of 02-NOV-2023 08:13, (unconfirmed) Criteria for Anteroseptal infarct are no longer Present QT has lengthened Confirmed by Rodrigo Lara ([id number]) on 11/06/2023 1:20:36 PM Referred By: REFERRED SELF Confirmed By:Rodrigo Lara
== END 2023-11-04 16:24 | disposition home or self-care (01) | DRG 305 ==
LOC: ED 20:02 → EDINP 11-02 02:00 → 2E 11-02 02:57